=== PATIENT | male | born 1965 | race Caucasian/White ===

== ENCOUNTER → 2020-08-10 11:29 | Outpatient (BNVA) | payer OTHER, SELFPAY | PROVIDERS: PCP Family Medicine; Referring Provider Family Medicine; Visit Provider Nurse Practitioner | DX: Z76.89 Persons encountering health services in other specified circumstances (principal) ==

== ENCOUNTER 2020-10-17 15:17 | Emergency (ER) | payer OTHER, SELFPAY ==
--- NOTE | 2020-10-17 15:58 | PC.NURSE ---
patient came in via ems-action, rt leg/foot pain swollen foot, ems vitals 112/78, hr 84, rr 20, poc 478
== END 2020-10-17 20:04 | disposition left against medical advice (07) ==
PROVIDERS: Emergency Provider Emergency Medicine
DX: M79.604 Pain in right leg (principal)
CPT/HCPCS: 99281

== ENCOUNTER 2020-10-21 18:10 | Inpatient (IN) | payer OTHER, SELFPAY ==
[2020-10-21 18:26] VITALS: BP 115/70; PULSE 107; RESP 18; TEMP 37.5; O2SAT 97; BMI 18.6
[2020-10-21 18:30] LABS: Glucose, Whole Blood 591 mg/dL (60-115)
--- NOTE | 2020-10-21 18:37 | ED.GENADULT ---
HPI - General Adult General Chief complaint: General Medical Stated complaint: MECHANICAL FALL 1 WEEK AGO, INC SWELLING/PAIN Time Seen by Provider: 10/21/20 18:32 Source: patient, EMS and old records reviewed Mode of arrival: EMS Limitations: no limitations and other (not cooperative agitated) History of Present Illness HPI narrative: 55 yo male with HIV CD4 count 53, HTN, DM, hep C, hx of UTI with sepsis comes in hit his foot on curb 1 week ago and c/o increased pain/redness/swelling. prior to my interview he was found asleep on the toilet after injecting IV heroin, no narcan needed, he is quite upset we removed his drug paraphernalia so my history is limited. MD complaint: fall Onset (ago): week(s) (1) Location: lower extremity (right ankle/leg) Radiation: proximal Severity: moderate Quality: aching and constant Pain Consistency: constant Relieving factors: none Exacerbating factors: movement Associated symptoms: other (leg is more swollen and red) Treatments prior to arrival: other (has been using IV heroin for pain - injected in our ED bathroom) Related Data Allergies Allergy/AdvReac Type Severity Reaction Status Date / Time Sulfa (Sulfonamide Allergy Mild RASH Verified 08/10/20 11:30 Antibiotics) [Sulfa (Sulfonamides)] Review of Systems Review of Systems: Constitutional : No Fever, No Chills ENT/Mouth : No Ear Pain, No Hoarseness, No sore throat Eyes: No Eye Pain, No Swelling, No Redness, No Foreign Body Cardiovascular : No Chest Pain, No SOB Respiratory : No Cough, No Dyspnea Gastrointestinal : No Nausea, No Vomiting, No Diarrhea, No abdominal Pain Genitourinary : No Dysuria, No Hematuria Musculoskeletal : positive joint pain, No Myalgias, pos Joint Swelling Skin : No Skin lacerations, pos rash Neuro : No Weakness, No Numbness, No Loss of Consciousness, No Dizziness, No Headache Psych : No Anxiety/Panic, No Depression Heme/Lymph: no easy bruising, no Lymphadenopathy Endocrine : No Polyuria, No Polydipsia All other systems reviewed and are negative PMFSH Past Medical History Attestation statement: The following information was validated with the patient. Source: old records reviewed Medical History Diabetes Drug abuse Hepatitis C HIV (human immunodeficiency virus infection) HTN (hypertension) MSSA bacteremia Surgical History History of repair of laceration Family History Family History (Updated 08/09/20 @ 10:42 by Leticia Recio Emmanuel) Father No problems noted. Mother No problems noted. Social History Social History (Updated 10/21/20 @ 19:31 by Ayleen Cain DO) Alcohol intake: current Alcohol intake frequency: does not drink Smoking Status: Current every day smoker Use of substances other than those prescribed or required for medical reasons: Yes Substance Use Type: Heroin and IV Drugs Advance Directives: No Advance Directives Information Provided: No Physical Exam Vital Signs: Vital Signs: Last Vital Signs Temp 99.3 F 10/21/20 20:17 Pulse 97 10/21/20 20:17 Resp 16 10/21/20 20:17 BP 124/69 10/21/20 20:17 Pulse Ox 97 10/21/20 20:17 Body Mass Index 18.6 Appearance: Alert. Oriented X3. No acute distress. Somewhat agitated but directable, frail, cachectic, temporal wasting Eyes: Pupils oinpoint ENT: Pharynx normal. Neck: Normal inspection. Neck supple. CVS: Normal heart rate and rhythm. Pulses normal. Respiratory: No respiratory distress. Breath sounds normal. Abdomen: Soft and nontender. Skin: Skin warm and dry. RLE erythema on medial aspect from medial malleolus to proximal calf, no abscess, no crepitus, warmt to touch and tender Extremities: RLE 1+ pitting edema, R medial malleolus ttp, swelling onto dorsum of foot but no erythema, erythema along medial aspect does not involve lateral ankle/posterior or dorsum of foot Neuro: Oriented X 3. No motor deficit. No sensory deficit. Course Course Course Narrative: discussed with general surgery likely hematoma with overlying cellulitis nothing acute to do tonight will admit for fluids, IV antibiotics, BS control - he has not taken his HIV medications in 6 months or his insulin as he does not understand how to use the pen Medical Decision Making MDM Narrative Medical decision making narrative: 55 yo male with HIV CD4 53, IV drug abuse, MSSA bacteremia - at this time c/o R leg pain with swelling and redness after hitting it on a curb 1 week ago at this time will need labs, cultures, xray, US to evaluate for DVT, start IV zosyn and vancomycin for RLE cellulitis Lab Data Result diagrams: 10/21/20 19:59 10/21/20 19:59 Labs: Lab Results 10/21/20 10/21/20 10/21/20 Range/Units 18:22 19:59 19:59 WBC 11.6 H (4.8-10.8) X10*3/uL RBC 4.31 L (4.60-5.80) X10*6/uL Hgb 12.5 L (14.0-18.0) g/dl Hct 36.1 L (42-52) % MCV 83.8 (80-98) fL MCH 29.0 (27.0-33.0) pg MCHC 34.6 (31.0-36.0) g/dl RDW 13.2 (11.0-16.0) % Plt Count 147 L (160-400) X10*3/uL MPV 10.4 (9.4-12.4) fL Immature Gran % (Auto) 0.7 H (0.0-0.4) % Neut % (Auto) 90.3 H (45-73) % Lymph % (Auto) 3.6 L (20-40) % Phillips % (Auto) 5.2 (2-11) % Eos % (Auto) 0.0 (0-4) % Baso % (Auto) 0.2 (0-2) % Lymph # (Auto) 0.4 L (1.2-4.9) X10*3/uL Phillips # (Auto) 0.6 (0.1-1.2) X10*3/uL Eos # (Auto) 0.0 (0.0-0.4) X10*3/uL Baso # (Auto) 0.0 (0.0-0.2) X10*3/uL Abs Immat Gran (auto) 0.08 H (0.00-0.03) X10*3/uL Absolute Neuts (auto) 10.5 H (2.0-8.3) X10*3/uL Absolute Nucleated RBC 0.000 (0.0-0.012) X10*3/uL Nucleated RBC % (auto) 0.0 (0.0-0.2) /100WBC Hold Blue Top SEE NOTE VBG pH (7.32-7.43) VBG pCO2 mmhg VBG pO2 mmhg VBG HCO3 mmol/L VBG O2 Saturation % VBG Base Excess mmol/L Sodium (135-145) mmol/L Potassium (3.3-5.1) mmol/l Chloride (96-108) mmol/L Carbon Dioxide (22-29) mmol/L Anion Gap (12-20) BUN (9-16) mg/dL Creatinine (0.5-1.4) mg/dL Estim Creat Clear Calc Estimated GFR POC Glucose 591 H* (60-115) mg/dL Random Glucose (60-115) mg/dL Lactic Acid (0.5-2.0) mmol/L Calcium (8.4-10.2) mg/dL Magnesium (1.6-2.6) mg/dL Total Bilirubin (0.0-1.0) mg/dL Direct Bilirubin (0.0-0.5) mg/dL AST (5-37) U/L ALT (0-40) U/L Alkaline Phosphatase (39-117) U/L Total Protein (6.5-8.0) g/dL Albumin (3.5-5.0) g/dL Urine Color Urine Appearance Urine pH (5.0-8.0) Ur Specific [place] (1.005-1.025) Urine Protein (NEG-TRACE) MG/DL Urine Glucose (UA) (NEG) MG/DL Urine Ketones (NEG) MG/DL Urine Blood (NEG) Urine Nitrite (NEG) Ur Leukocyte Esterase (NEG) Urine RBC (0) /HPF Urine WBC (0-4) /HPF Ur Squamous Epith Cells /LPF Urine Bacteria /LPF Acetone, Qual (Negative) Coronavirus (PCR) (Negative) Influenza Type A (PCR) (Negative) Influenza Type B (PCR) (Negative) RSV RNA Qual (PCR) (Negative) 10/21/20 10/21/20 10/21/20 Range/Units 19:59 19:59 20:00 WBC (4.8-10.8) X10*3/uL RBC (4.60-5.80) X10*6/uL Hgb (14.0-18.0) g/dl Hct (42-52) % MCV (80-98) fL MCH (27.0-33.0) pg MCHC (31.0-36.0) g/dl RDW (11.0-16.0) % Plt Count (160-400) X10*3/uL MPV (9.4-12.4) fL Immature Gran % (Auto) (0.0-0.4) % Neut % (Auto) (45-73) % Lymph % (Auto) (20-40) % Phillips % (Auto) (2-11) % Eos % (Auto) (0-4) % Baso % (Auto) (0-2) % Lymph # (Auto) (1.2-4.9) X10*3/uL Phillips # (Auto) (0.1-1.2) X10*3/uL Eos # (Auto) (0.0-0.4) X10*3/uL Baso # (Auto) (0.0-0.2) X10*3/uL Abs Immat Gran (auto) (0.00-0.03) X10*3/uL Absolute Neuts (auto) (2.0-8.3) X10*3/uL Absolute Nucleated RBC (0.0-0.012) X10*3/uL Nucleated RBC % (auto) (0.0-0.2) /100WBC Hold Blue Top VBG pH (7.32-7.43) VBG pCO2 mmhg VBG pO2 mmhg VBG HCO3 mmol/L VBG O2 Saturation % VBG Base Excess mmol/L Sodium 122 L (135-145) mmol/L Potassium 5.3 H (3.3-5.1) mmol/l Chloride 87 L (96-108) mmol/L Carbon Dioxide 27 (22-29) mmol/L Anion Gap 13 (12-20) BUN 78 H (9-16) mg/dL Creatinine 2.02 H (0.5-1.4) mg/dL Estim Creat Clear Calc 30.8 Estimated GFR 34 POC Glucose (60-115) mg/dL Random Glucose 662 H* (60-115) mg/dL Lactic Acid 1.8 (0.5-2.0) mmol/L Calcium 9.5 (8.4-10.2) mg/dL Magnesium 2.3 (1.6-2.6) mg/dL Total Bilirubin 0.8 (0.0-1.0) mg/dL Direct Bilirubin 0.7 H (0.0-0.5) mg/dL AST 20 (5-37) U/L ALT 17 (0-40) U/L Alkaline Phosphatase 91 (39-117) U/L Total Protein 8.5 H (6.5-8.0) g/dL Albumin 3.1 L (3.5-5.0) g/dL Urine Color YELLOW Urine Appearance CLEAR Urine pH 5.5 (5.0-8.0) Ur Specific [place] 1.025 (1.005-1.025) Urine Protein TRACE (NEG-TRACE) MG/DL Urine Glucose (UA) >=1000 H (NEG) MG/DL Urine Ketones NEG (NEG) MG/DL Urine Blood 1+ H (NEG) Urine Nitrite NEG (NEG) Ur Leukocyte Esterase NEG (NEG) Urine RBC 5-9 H (0) /HPF Urine WBC 0-2 (0-4) /HPF Ur Squamous Epith Cells 1+ /LPF Urine Bacteria 1+ /LPF Acetone, Qual Negative (Negative) Coronavirus (PCR) (Negative) Influenza Type A (PCR) (Negative) Influenza Type B (PCR) (Negative) RSV RNA Qual (PCR) (Negative) 10/21/20 10/21/20 10/21/20 Range/Units 20:02 20:02 21:38 WBC (4.8-10.8) X10*3/uL RBC (4.60-5.80) X10*6/uL Hgb (14.0-18.0) g/dl Hct (42-52) % MCV (80-98) fL MCH (27.0-33.0) pg MCHC (31.0-36.0) g/dl RDW (11.0-16.0) % Plt Count (160-400) X10*3/uL MPV (9.4-12.4) fL Immature Gran % (Auto) (0.0-0.4) % Neut % (Auto) (45-73) % Lymph % (Auto) (20-40) % Phillips % (Auto) (2-11) % Eos % (Auto) (0-4) % Baso % (Auto) (0-2) % Lymph # (Auto) (1.2-4.9) X10*3/uL Phillips # (Auto) (0.1-1.2) X10*3/uL Eos # (Auto) (0.0-0.4) X10*3/uL Baso # (Auto) (0.0-0.2) X10*3/uL Abs Immat Gran (auto) (0.00-0.03) X10*3/uL Absolute Neuts (auto) (2.0-8.3) X10*3/uL Absolute Nucleated RBC (0.0-0.012) X10*3/uL Nucleated RBC % (auto) (0.0-0.2) /100WBC Hold Blue Top VBG pH 7.29 L (7.32-7.43) VBG pCO2 55 mmhg VBG pO2 29 mmhg VBG HCO3 26 mmol/L VBG O2 Saturation 50.4 % VBG Base Excess -1.1 mmol/L Sodium (135-145) mmol/L Potassium (3.3-5.1) mmol/l Chloride (96-108) mmol/L Carbon Dioxide (22-29) mmol/L Anion Gap (12-20) BUN (9-16) mg/dL Creatinine (0.5-1.4) mg/dL Estim Creat Clear Calc Estimated GFR POC Glucose 496 H* (60-115) mg/dL Random Glucose (60-115) mg/dL Lactic Acid (0.5-2.0) mmol/L Calcium (8.4-10.2) mg/dL Magnesium (1.6-2.6) mg/dL Total Bilirubin (0.0-1.0) mg/dL Direct Bilirubin (0.0-0.5) mg/dL AST (5-37) U/L ALT (0-40) U/L Alkaline Phosphatase (39-117) U/L Total Protein (6.5-8.0) g/dL Albumin (3.5-5.0) g/dL Urine Color Urine Appearance Urine pH (5.0-8.0) Ur Specific [place] (1.005-1.025) Urine Protein (NEG-TRACE) MG/DL Urine Glucose (UA) (NEG) MG/DL Urine Ketones (NEG) MG/DL Urine Blood (NEG) Urine Nitrite (NEG) Ur Leukocyte Esterase (NEG) Urine RBC (0) /HPF Urine WBC (0-4) /HPF Ur Squamous Epith Cells /LPF Urine Bacteria /LPF Acetone, Qual (Negative) Coronavirus (PCR) NEGATIVE (Negative) Influenza Type A (PCR) NEGATIVE (Negative) Influenza Type B (PCR) NEGATIVE (Negative) RSV RNA Qual (PCR) NEGATIVE (Negative) ECG Data Attestation: I personally reviewed and interpreted this ECG as follows: Interpretation: Rate: 96 Rhythm: NSR Jolo: normal Normal P waves. Normal ERROL. Normal QRS complex. ST T wave : nonspecific no ROBIN, t waves tall V3 qTC: normal prior studies: no acute ischemia The study has been interpreted contemporaneously by me. . Discharge Plan Discharge Clinical Impression: Cellulitis, Acute renal failure, Acute hyperglycemia, Opiate abuse, continuous, Non-compliance Patient Disposition: Admitted As Inpatient
--- NOTE | 2020-10-21 18:42 | XR_ITS ---
EXAMINATION: XR CHEST CLINICAL INFORMATION: Evaluate for pneumonia COMPARISON: 07/07/2020 TECHNIQUE: Frontal view of the chest was obtained. FINDINGS: Lungs appear hyperexpanded and hyperinflated. Calcified granuloma again seen in the left lateral midlung. No new focal consolidation. No pleural effusion or pneumothorax. Normal pulmonary vascularity. XR/XR chest 1V IMPRESSION: No acute pulmonary disease.
--- NOTE | 2020-10-21 19:01 | XR_ITS ---
EXAMINATION: XR TIBIA AND FIBULA, RIGHT XR ANKLE, RIGHT XR FOOT, RIGHT CLINICAL INFORMATION: Pain following a fall. COMPARISON: None. TECHNIQUE: AP and lateral views of the right tibia and fibula. AP, mortise, and lateral views of the right ankle. AP, oblique, and lateral views of the right foot. FINDINGS: Right Tibia and Fibula: No acute fracture or dislocation. No osseous erosion. No abnormal soft tissue calcification. Right Ankle: No acute fracture or dislocation. The ankle mortise is maintained. No joint space narrowing or marginal osteophytes. No osseous erosion. Right Foot: No acute fracture or dislocation. No joint space narrowing or marginal osteophytes. No osseous erosion. Tiny plantar calcaneal spur. XR/XR foot RT min 3V IMPRESSION: RIGHT TIBIA AND FIBULA: Unremarkable examination. RIGHT ANKLE: Unremarkable examination. RIGHT FOOT: Tiny plantar calcaneal spur. Otherwise unremarkable examination.
--- NOTE | 2020-10-21 19:01 | XR_ITS ---
EXAMINATION: XR TIBIA AND FIBULA, RIGHT XR ANKLE, RIGHT XR FOOT, RIGHT CLINICAL INFORMATION: Pain following a fall. COMPARISON: None. TECHNIQUE: AP and lateral views of the right tibia and fibula. AP, mortise, and lateral views of the right ankle. AP, oblique, and lateral views of the right foot. FINDINGS: Right Tibia and Fibula: No acute fracture or dislocation. No osseous erosion. No abnormal soft tissue calcification. Right Ankle: No acute fracture or dislocation. The ankle mortise is maintained. No joint space narrowing or marginal osteophytes. No osseous erosion. Right Foot: No acute fracture or dislocation. No joint space narrowing or marginal osteophytes. No osseous erosion. Tiny plantar calcaneal spur. XR/XR tibia fibula RT 2V IMPRESSION: RIGHT TIBIA AND FIBULA: Unremarkable examination. RIGHT ANKLE: Unremarkable examination. RIGHT FOOT: Tiny plantar calcaneal spur. Otherwise unremarkable examination.
--- NOTE | 2020-10-21 19:01 | US_ITS ---
EXAMINATION: US VENOUS ULTRASOUND WITH DOPPLER LOWER EXTREMITY, RIGHT CLINICAL INFORMATION: Pain, swelling COMPARISON: None TECHNIQUE: Ultrasound of the deep veins is performed from the hip to the calf with compression sonography and color and pulse Doppler assessment. Spectral analysis with color-flow imaging is performed. FINDINGS: There is normal venous compression and respiratory variation and augmented flow. The visualized common femoral vein, superficial femoral vein, profunda femoral vein, popliteal vein, and the trifurcation region shows no evidence of deep venous thrombosis. There is no significant popliteal fossa cyst. In the soft tissues of the calf there is an elongated (at least) 4.4 x 1.1 x 2.5 cm fluid collection. There are some low level internal echoes. If the patient's symptoms persist, followup ultrasound in 5 days 7 days might be of value to exclude proximal propagation from a non-visualized calf vein. US/US venous duplex LE RT IMPRESSION: No DVT demonstrated in the right lower extremity. Elongated 4.4 x 1.1 x 2.5 cm fluid collection seen in the calf, new from the prior study 07/10/2020. There are a few internal low-level echoes. Differential considerations would include an abscess or hematoma. The location is atypical for bursitis or joint effusion. A postoperative fluid collection such as a seroma could be considered if there is been interval surgery.
--- NOTE | 2020-10-21 19:01 | XR_ITS ---
EXAMINATION: XR TIBIA AND FIBULA, RIGHT XR ANKLE, RIGHT XR FOOT, RIGHT CLINICAL INFORMATION: Pain following a fall. COMPARISON: None. TECHNIQUE: AP and lateral views of the right tibia and fibula. AP, mortise, and lateral views of the right ankle. AP, oblique, and lateral views of the right foot. FINDINGS: Right Tibia and Fibula: No acute fracture or dislocation. No osseous erosion. No abnormal soft tissue calcification. Right Ankle: No acute fracture or dislocation. The ankle mortise is maintained. No joint space narrowing or marginal osteophytes. No osseous erosion. Right Foot: No acute fracture or dislocation. No joint space narrowing or marginal osteophytes. No osseous erosion. Tiny plantar calcaneal spur. XR/XR ankle RT min 3V IMPRESSION: RIGHT TIBIA AND FIBULA: Unremarkable examination. RIGHT ANKLE: Unremarkable examination. RIGHT FOOT: Tiny plantar calcaneal spur. Otherwise unremarkable examination.
--- NOTE | 2020-10-21 19:08 | PC.NURSE ---
pt was found on toilet with syringe and a pack at his feet. Pt's head was down but pt awake and breathing. pt sat up and was placed in stretcher and moved to room #17 with MD at bedside. Pt chg into gown with security at bedside. MD conversing with pt with animal control licensing worker at bedside for eval. VS obtained. Pt awaiting x-ray and labs. Will continue to monitor pt.
--- NOTE | 2020-10-21 19:30 | PC.NURSE ---
IV PLACED TO LFA, LABS DRAWN TO LAB. PT GIVEN REGULAR INSULIN 10UNITS WITH POC 496. PT ON MONITOR WITH HR OF 96. PT STATES I DONT FEEL GOOD . PT C/O PAIN TO TONGUE WHICH HAS VARIOUS AREA OF PATCHY SKIN ON SIDES OF TONGUE AND PT C/O PAIN TO RIGHT FOOT/ANKLE AREA. +EDEMA TO RIGHT FOOT/ANKLE AREA. X-RAY IN ROOM FOR EVAL.
[2020-10-21] MEDS: 0.9 % Sodium Chloride 1,000 ML 999 ML IVCONT (20:00)
--- NOTE | 2020-10-21 20:00 | PC.NURSE ---
U/S IN ROOM FOR EVAL.
[2020-10-21 20:12] LABS: Basophils Percent Auto 0.2 % (0-2); Hematocrit 36.1 % (42-52); Hemoglobin 12.5 g/dl (14.0-18.0); Imm Gran Abs Auto 0.08 X10*3/uL (0.00-0.03); Imm Gran Pct Auto 0.7 % (0.0-0.4); Lymphocytes Absolute Auto 0.4 X10*3/uL (1.2-4.9); Lymphocytes Percent Auto 3.6 % (20-40); Mean Corpuscular HGB Conc 34.6 g/dl (31.0-36.0); Mean Corpuscular Volume 83.8 fL (80-98); Mean Platelet Volume 10.4 fL (9.4-12.4); Monocytes Absolute Auto 0.6 X10*3/uL (0.1-1.2); Monocytes Percent Auto 5.2 % (2-11); Neutrophils Absolute Auto 10.5 X10*3/uL (2.0-8.3); Neutrophils Percent Auto 90.3 % (45-73); Platelet Count 147 X10*3/uL (160-400); Red Blood Count 4.31 X10*6/uL (4.60-5.80); Red Cell Distribution Width 13.2 % (11.0-16.0); SCAN SMEAR FLAG 1; White Blood Count 11.6 X10*3/uL (4.8-10.8)
[2020-10-21 20:14] LABS: MANUAL DIFF FLAG NO
[2020-10-21] MEDS: Insulin Regular, Human 100 UNIT/ML 3 ML VIAL 10 UNIT IVPUSH (20:15)
[2020-10-21 20:17] VITALS: BP 124/69; PULSE 97; RESP 16; TEMP 37.4; O2SAT 97
[2020-10-21 20:17] LABS: Base Excess VBG -1.1 mmol/L; HCO3 VBG 26 mmol/L; Oxygen Saturation VBG 50.4 %; PCO2 VBG 55 mmhg; PO2 VBG 29 mmhg; pH VBG 7.29 (7.32-7.43)
[2020-10-21 20:17] LABS: Glucose Urine UA >=1000 MG/DL (NEG); Leukocyte Esterase Urine NEG (NEG); Nitrite Urine NEG (NEG); PH 5.5 (5.0-8.0); Specific Gravity - Urine 1.025 (1.005-1.025); Urine Blood 1+ (NEG); Urine Ketones NEG (NEG); Urine Protein TRACE MG/DL (NEG-TRACE)
[2020-10-21 20:18] LABS: Appearance Urine CLEAR; Color Urine YELLOW
[2020-10-21 20:18] LABS: Blood Gas Serial # 5414
[2020-10-21 20:29] LABS: Bacteria Urine 1+ /LPF; Squamous Epithelial Cell Urine 1+ /LPF; WBC Urine 0-2 /HPF (0-4)
[2020-10-21] MEDS: Piperacillin Sodium/Tazobactam 3.375 GM in 0.9 % Sodium Chloride 50 ML IV (20:30)
[2020-10-21 20:34] LABS: Lactic Acid 1.8 mmol/L (0.5-2.0)
[2020-10-21 20:43] LABS: Alanine Aminotransferase 17 U/L (0-40); Albumin Level 3.1 g/dL (3.5-5.0); Alkaline Phosphatase 91 U/L (39-117); Anion Gap 13 (12-20); Aspartate Amino Transferase 20 U/L (5-37); Bilirubin Direct 0.7 mg/dL (0.0-0.5); Bilirubin Total 0.8 mg/dL (0.0-1.0); Blood Urea Nitrogen 78 mg/dL (9-16); Calcium 9.5 mg/dL (8.4-10.2); Carbon Dioxide 27 mmol/L (22-29); Chloride 87 mmol/L (96-108); Creatinine Clr Calc Pharmacy 30.8; Estimated Glomerular Filt Rate 34; Glucose Random 662 mg/dL (60-115); Magnesium 2.3 mg/dL (1.6-2.6); Potassium 5.3 mmol/l (3.3-5.1); Sodium 122 mmol/L (135-145); Total Protein 8.5 g/dL (6.5-8.0)
[2020-10-21] MEDS: vancomycin HCL 750 MG in 0.9 % Sodium Chloride 250 ML 265 MG IV (20:45)
[2020-10-21 21:02] LABS: Influenza A PCR NEGATIVE (Negative); Influenza B PCR NEGATIVE (Negative); Resp Syncy Virus RNA Qual PCR NEGATIVE (Negative); SARS COV2 PCR INHOUSE NEGATIVE (Negative)
[2020-10-21] MEDS: 0.9 % Sodium Chloride 500 ML IV (21:13)
--- NOTE | 2020-10-21 21:35 | ECG_ITS ---
Test Reason : FOOT PAIN Blood Pressure : / mmHG Vent. Rate : 096 BPM Atrial Rate : 096 BPM P-R Int : 118 ms QRS Dur : 082 ms QT Int : 320 ms P-R-T Axes : 074 074 059 degrees QTc Int : 404 ms Normal sinus rhythm Normal ECG When compared with ECG of 07-JUL-2020 22:03, No significant change was found Referred By: Ayleen Cain Electronically Signed By:DONY OCHOA
[2020-10-21 21:46] LABS: Acetone, serum QL Negative (Negative)
[2020-10-21 21:46] LABS: Glucose, Whole Blood 496 mg/dL (60-115)
[2020-10-21] MEDS: Insulin Regular, Human 100 UNIT/ML 3 ML VIAL IVPUSH (21:50)
[2020-10-21 22:00] VITALS: BP 114/68; PULSE 93; RESP 16; O2SAT 99
--- NOTE | 2020-10-21 22:03 | PC.NURSE ---
HOSPITALIST IN ROOM FOR EVAL ALONG WITH INTERPRETOR.
[2020-10-21 22:39] LABS: Glucose, Whole Blood 415 mg/dL (60-115)
[2020-10-21] MEDS: Insulin Lispro 100 UNIT/ML 3 ML VIAL 10 UNIT SUBCUT (23:00)
--- NOTE | 2020-10-21 23:56 | PC.NURSE ---
floor unable to take report.
[2020-10-21 23:58] LABS: Glucose, Whole Blood 359 mg/dL (60-115)
--- NOTE | 2020-10-22 00:28 | PC.NURSE ---
SPOKE WITH DR CAMARGO. PATIENT IS NOT A CRISIS CONSULT. PATIENT IS A CARE TEAM CONSULT.
--- NOTE | 2020-10-22 00:34 | PC.NURSE ---
report to kanika Gotti. [facility].
[2020-10-22 00:54] VITALS: BP 109/61; PULSE 94; RESP 16; TEMP 37.2
[2020-10-22] MEDS: Insulin Glargine,Hum.rec.anlog 100 UNIT/ML 10 ML VIAL 18 UNIT SUBCUT ×3 (01:13→21:24)
[2020-10-22 01:15] LABS: Glucose, Whole Blood 322 mg/dL (60-115)
[2020-10-22] MEDS: 0.9 % Sodium Chloride Flush 3 ML SYRINGE IVFLUSH ×3 (01:31→21:26)
[2020-10-22] MEDS: 0.9 % Sodium Chloride 1,000 ML 100 ML IVCONT ×2 (01:31→12:02)
--- NOTE | 2020-10-22 05:11 | P.HPHOSP_ITS ---
History of Present Illness Date of Service: 10/21/20 Chief Complaint: thrush, right lower extremity swelling This is a 54-year-old male with past medical history of hep B, C, HIV aids, diabetes, hypertension, MSSA bacteremia presents to the hospital with complaints right lower extremity swelling and pain as well as thrush in time. Patient reports that about 3 days ago he bumped his right lower extremity on a sidewalk, and progressively started getting red, painful, and swollen. He also is complaining of thrush when his time. He reports that he has not been able to eat much except 4th fluids although has no difficulty swallowing does low appetite for anything else. He has been homeless for 6 months and has not been able to keep up with any of his medications including his HIV/aids meds and his insulin. He is also interested in quitting IV drug use and wants help in detoxing. He otherwise denies any headache, change in vision, no chest pain, no shortness of breath, no abdominal pain nausea or vomiting, no urinary symptoms and no weakness numbness or tingling. On arrival to the ED to the ED hemodynamically stable with heart rate of 107, otherwise no significant abnormal vitals Labs are significant for WBC count of 11.6, hemoglobin a of 12.5, hematocrit 36.1, 35 , potassium of 5.3, normal anion gap, bicarb of 27, BUN of 78, creatinine of 2.0 with a baseline around 0.8, random glucose of 662, lactic acid of 1.8, albumin 3.1. UA negative. Past medical history: Hepatitis B and C, HIV aids, diabetes mellitus, hypertension, MSSA bacteremia Past surgical history: Facial reconstruction surgery Family history: Denies Social history: Currently homeless, smokes cigarettes but quit yesterday, smokes less than a pack a day, uses heroin daily and is interested in quitting, last use was today in the ED, occasional alcohol user Review of Systems Review of Systems: Yes all other systems are reviewed and are negative [facility] Medical History Diabetes Drug abuse Hepatitis C HIV (human immunodeficiency virus infection) HTN (hypertension) MSSA bacteremia Family History (Updated 08/09/20 @ 10:42 by Leticia Recio Emmanuel) Father No problems noted. Mother No problems noted. Surgical History History of repair of laceration Social History (Updated 10/21/20 @ 19:31 by Ayleen Cain DO) Household Members: None Housing: Apartment Do you presently have visiting nurse or other home services: No Alcohol intake: current Alcohol intake frequency: does not drink Smoking Status: Current every day smoker Tobacco Type: Cigarette Packs Per Day: 1 Cigarettes Per Day: 20.0 Smoked in Last 30 Days: Yes Patient Interested in Nicotine Replacement: No Second Hand Smoke Exposure: Yes Use of substances other than those prescribed or required for medical reasons: Refusing to respond Substance Use Type: Heroin Last Used Substance: Hours (ago) Last Used Substance Other:: ed report stated found in br with used syringes and heroin packets Currently Displaying Signs/Symptoms of Drug Intoxication Withdrawal: No Any prior treatment program specific to substance use: No Have you been hit, kicked, punched, or otherwise hurt by someone within the past year? If so, by whom?: No Do you feel safe in your current relationship?: No Current Relationship Is there a partner from a previous relationship who is making you feel unsafe now?: No Are you made to feel afraid or neglected: No Advance Directives: No Advance Directives Information Provided: No Do you have thoughts of harming others: None Recently lost weight without trying: Unsure Meds Allergies Allergy/AdvReac Type Severity Reaction Status Date / Time Sulfa (Sulfonamide Allergy Mild RASH Verified 08/10/20 11:30 Antibiotics) [Sulfa (Sulfonamides)] Home Medications Medication Instructions Recorded Confirmed Type abacavir 2 tab PO BEDTIME 10/21/20 10/21/20 History atovaquone 750 mg PO DAILY 10/21/20 10/21/20 History omlbweqpd-mevhiaix-lvscvgi ala 1 tab PO DAILY 10/21/20 10/21/20 History [Biktarvy] buprenorphine-naloxone [Suboxone] 1 strip SUBLINGUAL BID 10/21/20 10/21/20 History fluticasone propionate [Flovent 1 puff PO BID 10/21/20 10/21/20 History HFA] insulin aspart U-100 [Novolog 100 unit SUBCUT TID 10/21/20 10/21/20 History Flexpen U-100 Insulin] insulin glargine [Lantus Solostar 18 unit SUBCUT BID 10/21/20 10/21/20 History U-100 Insulin] metformin 1 tab PO BID 10/21/20 10/21/20 History Physical Exam Vital Signs and Narrative: Vital Signs: Last Vital Signs Temp 98.9 F 10/22/20 00:54 Pulse 94 10/22/20 00:54 Resp 16 10/22/20 00:54 BP 109/61 10/22/20 00:54 Pulse Ox 99 10/21/20 22:00 Body Mass Index 18.6 Const: Other: Severely malnourished, cachectic General: cooperative and no acute distress Orientation/consciousness: patient oriented x3 HENMT: Other: oral thrush on tongue Eyes: General: appearance normal, both eyes and all related structures Resp: Effort & Inspection: normal respiratory effort and able to speak in complete sentences Auscultation: clear to auscultation bilaterally Cardio: Rate: regular rate Rhythm: regular rhythm GI: Palpation (GI): Soft to palpation Auscultation: normal bowel sounds Skin: General skin exam: no rashes or lesions noted Neuro: General: patient oriented x3 Cognition (Neuro): normal cognition Extrem: Other: Right lower extremity edema, erythema, and tenderness around the ankle Results Labs CBC and Chem 7: 10/21/20 19:59 10/21/20 19:59 Labs: Laboratory Results - last 24 hr 10/21/20 10/21/20 10/21/20 18:22 19:59 19:59 MCV 83.8 MCH 29.0 MCHC 34.6 RDW 13.2 Plt Count 147 L MPV 10.4 Immature Gran % (Auto) 0.7 H Neut % (Auto) 90.3 H Lymph % (Auto) 3.6 L [place] % (Auto) 5.2 Eos % (Auto) 0.0 Baso % (Auto) 0.2 Lymph # (Auto) 0.4 L [place] # (Auto) 0.6 Eos # (Auto) 0.0 Baso # (Auto) 0.0 Abs Immat Gran (auto) 0.08 H Absolute Neuts (auto) 10.5 H Absolute Nucleated RBC 0.000 Nucleated RBC % (auto) 0.0 Hold Blue Top SEE NOTE VBG pH VBG pCO2 VBG pO2 VBG HCO3 VBG O2 Saturation VBG Base Excess Anion Gap Estim Creat Clear Calc Estimated GFR POC Glucose 591 H* Random Glucose Lactic Acid Calcium Magnesium Total Bilirubin Direct Bilirubin AST ALT Alkaline Phosphatase Total Protein Albumin Urine Color Urine Appearance Urine pH Ur Specific [place] Urine Protein Urine Glucose (UA) Urine Ketones Urine Blood Urine Nitrite Ur Leukocyte Esterase Urine RBC Urine WBC Ur Squamous Epith Cells Urine Bacteria Acetone, Qual Coronavirus (PCR) Influenza Type A (PCR) Influenza Type B (PCR) RSV RNA Qual (PCR) 10/21/20 10/21/20 10/21/20 19:59 19:59 20:00 MCV MCH MCHC RDW Plt Count MPV Immature Gran % (Auto) Neut % (Auto) Lymph % (Auto) [place] % (Auto) Eos % (Auto) Baso % (Auto) Lymph # (Auto) [place] # (Auto) Eos # (Auto) Baso # (Auto) Abs Immat Gran (auto) Absolute Neuts (auto) Absolute Nucleated RBC Nucleated RBC % (auto) Hold Blue Top VBG pH VBG pCO2 VBG pO2 VBG HCO3 VBG O2 Saturation VBG Base Excess Anion Gap 13 Estim Creat Clear Calc 30.8 Estimated GFR 34 POC Glucose Random Glucose 662 H* Lactic Acid 1.8 Calcium 9.5 Magnesium 2.3 Total Bilirubin 0.8 Direct Bilirubin 0.7 H AST 20 ALT 17 Alkaline Phosphatase 91 Total Protein 8.5 H Albumin 3.1 L Urine Color YELLOW Urine Appearance CLEAR Urine pH 5.5 Ur Specific [place] 1.025 Urine Protein TRACE Urine Glucose (UA) >=1000 H Urine Ketones NEG Urine Blood 1+ H Urine Nitrite NEG Ur Leukocyte Esterase NEG Urine RBC 5-9 H Urine WBC 0-2 Ur Squamous Epith Cells 1+ Urine Bacteria 1+ Acetone, Qual Negative Coronavirus (PCR) Influenza Type A (PCR) Influenza Type B (PCR) RSV RNA Qual (PCR) 10/21/20 10/21/20 10/21/20 20:02 20:02 21:38 MCV MCH MCHC RDW Plt Count MPV Immature Gran % (Auto) Neut % (Auto) Lymph % (Auto) [place] % (Auto) Eos % (Auto) Baso % (Auto) Lymph # (Auto) [place] # (Auto) Eos # (Auto) Baso # (Auto) Abs Immat Gran (auto) Absolute Neuts (auto) Absolute Nucleated RBC Nucleated RBC % (auto) Hold Blue Top VBG pH 7.29 L VBG pCO2 55 VBG pO2 29 VBG HCO3 26 VBG O2 Saturation 50.4 VBG Base Excess -1.1 Anion Gap Estim Creat Clear Calc Estimated GFR POC Glucose 496 H* Random Glucose Lactic Acid Calcium Magnesium Total Bilirubin Direct Bilirubin AST ALT Alkaline Phosphatase Total Protein Albumin Urine Color Urine Appearance Urine pH Ur Specific [place] Urine Protein Urine Glucose (UA) Urine Ketones Urine Blood Urine Nitrite Ur Leukocyte Esterase Urine RBC Urine WBC Ur Squamous Epith Cells Urine Bacteria Acetone, Qual Coronavirus (PCR) NEGATIVE Influenza Type A (PCR) NEGATIVE Influenza Type B (PCR) NEGATIVE RSV RNA Qual (PCR) NEGATIVE 10/21/20 10/21/20 10/22/20 22:33 23:50 01:08 MCV MCH MCHC RDW Plt Count MPV Immature Gran % (Auto) Neut % (Auto) Lymph % (Auto) [place] % (Auto) Eos % (Auto) Baso % (Auto) Lymph # (Auto) [place] # (Auto) Eos # (Auto) Baso # (Auto) Abs Immat Gran (auto) Absolute Neuts (auto) Absolute Nucleated RBC Nucleated RBC % (auto) Hold Blue Top VBG pH VBG pCO2 VBG pO2 VBG HCO3 VBG O2 Saturation VBG Base Excess Anion Gap Estim Creat Clear Calc Estimated GFR POC Glucose 415 H* 359 H* 322 H Random Glucose Lactic Acid Calcium Magnesium Total Bilirubin Direct Bilirubin AST ALT Alkaline Phosphatase Total Protein Albumin Urine Color Urine Appearance Urine pH Ur Specific [place] Urine Protein Urine Glucose (UA) Urine Ketones Urine Blood Urine Nitrite Ur Leukocyte Esterase Urine RBC Urine WBC Ur Squamous Epith Cells Urine Bacteria Acetone, Qual Coronavirus (PCR) Influenza Type A (PCR) Influenza Type B (PCR) RSV RNA Qual (PCR) Imaging Radiologist's Impressions: Impressions Chest X-Ray 10/21/20 18:42 IMPRESSION: No acute pulmonary disease. Ankle X-Ray 10/21/20 19:01 IMPRESSION: RIGHT TIBIA AND FIBULA: Unremarkable examination. RIGHT ANKLE: Unremarkable examination. RIGHT FOOT: Tiny plantar calcaneal spur. Otherwise unremarkable examination. Foot X-Ray 10/21/20 19:01 IMPRESSION: RIGHT TIBIA AND FIBULA: Unremarkable examination. RIGHT ANKLE: Unremarkable examination. RIGHT FOOT: Tiny plantar calcaneal spur. Otherwise unremarkable examination. Tibia/Fibula X-Ray 10/21/20 19:01 IMPRESSION: RIGHT TIBIA AND FIBULA: Unremarkable examination. RIGHT ANKLE: Unremarkable examination. RIGHT FOOT: Tiny plantar calcaneal spur. Otherwise unremarkable examination. Venous Duplex 10/21/20 19:01 IMPRESSION: No DVT demonstrated in the right lower extremity. Elongated 4.4 x 1.1 x 2.5 cm fluid collection seen in the calf, new from the prior study 07/10/2020. There are a few internal low-level echoes. Differential considerations would include an abscess or hematoma. The location is atypical for bursitis or joint effusion. A postoperative fluid collection such as a seroma could be considered if there is been interval surgery. Assessment and Plan (1) Sepsis: Status: Acute (2) Cellulitis: Qualifiers: Laterality: right Site of cellulitis: extremity Site of cellulitis of extremity: lower extremity Qualified Code(s): L03.115 - Cellulitis of right lower limb Status: Acute (3) Acute renal failure: Qualifiers: Acute renal failure type: unspecified Qualified Code(s): N17.9 - Acute kidney failure, unspecified Status: Acute (4) Thrush, oral: Status: Acute (5) Acute hyperglycemia: Status: Acute (6) Opiate abuse, continuous: Status: Acute (7) Non-compliance: Status: Acute (8) HTN (hypertension): Status: Inactive (9) HIV (human immunodeficiency virus infection): Status: Inactive This is a 55-year-old male with past medical history of HIV/aids who presents to the hospital with of by lower extremity swelling/erythema as well as thrush in his mouth # sepsis - most likely secondary to lower extremity cellulitis - has tachycardia as well as leukocytosis Plan: - start on IV antibiotics - IV fluids - follow cultures # lower extremity cellulitis - erythema, tenderness, edema - has leukocytosis, and tachycardia - due to injury to lower extremity Plan: - IV vancomycin, - surgical team was consulted and believe that there is a hematoma with no plan for surgical intervention at this time - follow cultures # oral thrush - in the setting of AIDS - start him on fluconazole - patient reports prior history - has CD4 count less than 100 - ID consulted # HIV/AIDS - patient has been homeless and has not been able to keep up with medications - will resume his atovaquone, Biktarvy, and abacavir - infectious disease consulted # hyperglycemia - uncontrolled diabetes - has not been compliant with his insulin patient reports has difficulty using pending prefers vial - resume home insulin, on low-dose sliding scale insulin, diabetic diet - POC q.i.d. a.c. # IV drug abuse - interested in continuing his Suboxone in quitting heroin and would like to be admitted to detox program - will consult care team DVT prophylaxis: Heparin
[2020-10-22 05:23] LABS: Basophils Percent Auto 0.2 % (0-2); Eosinophils Percent Auto 0.1 % (0-4); Hematocrit 31.2 % (42-52); Imm Gran Abs Auto 0.15 X10*3/uL (0.00-0.03); Imm Gran Pct Auto 1.4 % (0.0-0.4); Lymphocytes Absolute Auto 0.9 X10*3/uL (1.2-4.9); Lymphocytes Percent Auto 8.5 % (20-40); MANUAL DIFF FLAG SCAN; Mean Corpuscular HGB Conc 35.3 g/dl (31.0-36.0); Mean Corpuscular Hemoglobin 28.9 pg (27.0-33.0); Mean Corpuscular Volume 82.1 fL (80-98); Monocytes Absolute Auto 0.9 X10*3/uL (0.1-1.2); Monocytes Percent Auto 7.8 % (2-11); PLT CLUMP 1; Red Cell Distribution Width 13.1 % (11.0-16.0); SCAN SMEAR FLAG 1
[2020-10-22 05:56] LABS: White Blood Count 10.9 X10*3/uL (4.8-10.8)
[2020-10-22 05:58] LABS: SLIDE REVIEW VERIFIED
[2020-10-22 06:12] LABS: Anion Gap 11 (12-20); Blood Urea Nitrogen 52 mg/dL (9-16); Calcium 8.8 mg/dL (8.4-10.2); Carbon Dioxide 24 mmol/L (22-29); Chloride 100 mmol/L (96-108); Creatinine Clr Calc Pharmacy 59.2; Estimated Glomerular Filt Rate > 60; Glucose Random 242 mg/dL (60-115); Potassium 4.2 mmol/l (3.3-5.1); Sodium 131 mmol/L (135-145)
[2020-10-22 07:30] VITALS: BP 127/70; PULSE 80; RESP 15; TEMP 36.4; O2SAT 99
[2020-10-22 07:56] LABS: Glucose, Whole Blood 262 mg/dL (60-115)
[2020-10-22] MEDS: Atovaquone 750 MG/5 ML ORAL.SUSP PO (08:51)
[2020-10-22] MEDS: Insulin Lispro 100 UNIT/ML 3 ML VIAL SUBCUT ×4 (08:52→21:25)
--- NOTE | 2020-10-22 10:05 | HO.PM.IMPN ---
Subjective Subjective Date of Service: 10/22/20 Interval History: Seen in f/u Cellulitis of right leg in setting of HIV disease and non compliant with meds Review of Systems -no fever -pain in right leg Physical Exam Vital Signs: Vital Signs: Last Vital Signs Temp 97.5 F 10/22/20 07:30 Pulse 80 10/22/20 07:30 Resp 15 10/22/20 07:30 BP 127/70 10/22/20 07:30 Pulse Ox 99 10/22/20 07:30 Body Mass Index 18.6 Const: General: cooperative Orientation/consciousness: patient oriented x3 HENMT: Other: oral thrush on tongue Resp: Effort & Inspection: normal respiratory effort and able to speak in complete sentences Auscultation: clear to auscultation bilaterally Cardio: Rate: regular rate Rhythm: regular rhythm GI: Palpation (GI): Soft to palpation Auscultation: normal bowel sounds Skin: General skin exam: no rashes or lesions noted Neuro: General: patient oriented x3 Extrem: Other: Right lower extremity edema, erythema, and tenderness around the ankle Objective Data Current Medications Generic Name Dose Route Start Last Admin Trade Name Freq PRN Reason Stop Dose Admin Abacavir Sulfate 600 mg 10/22/20 21:00 Abacavir Sulfate 300 Mg Tablet PO BEDTIME TOMY Acetaminophen 650 mg 10/22/20 00:50 Acetaminophen 325 Mg Tablet PO Q6H PRN Pain, Mild (Pain Scale 1-3) Atovaquone 750 mg 10/22/20 09:00 10/22/20 08:51 Atovaquone 750 Mg/5 Ml Oral.Susp PO 750 mg DAILY TOMY Administration Bictegravir/Emtricitabine/Tenofovir 1 tab 10/22/20 09:00 10/22/20 08:51 Bictegrav/Emtricit/Tenofov Ala 1 Tab Tablet PO 1 tab DAILY TOMY Administration Buprenorphine/Naloxone 1 film 10/22/20 10:00 Buprenorphine/Naloxone 8/2 Mg Film SUBLINGUAL BID TOMY Docusate Sodium 100 mg 10/22/20 00:50 Docusate Sodium 100 Mg Capsule PO DAILY PRN Constipation Fluconazole 400 mg 10/21/20 22:50 10/22/20 01:11 Fluconazole 100 Mg Tablet PO Not Given DAILY TOMY Fluticasone Propionate 1 puff 10/22/20 09:00 Fluticasone Propionate 100 Mcg Blst.W.Dev INHALE BID TOMY Sodium Chloride 1,000 mls @ 100 mls/hr 10/22/20 00:50 10/22/20 01:31 Ns IVCONT 100 mls/hr .Q10H TOMY Administration Vancomycin HCl 1,000 mg/ 270 mls @ 270 mls/hr 10/22/20 21:00 Sodium Chloride IV Q24H TOMY Sodium Chloride 1,000 mls @ 100 mls/hr 10/22/20 05:30 10/22/20 05:46 Ns IVCONT Not Given .Q10H TOMY Insulin Glargine 18 unit 10/21/20 23:30 10/22/20 08:52 Insulin Glargine,Hum.Rec.Anlog 100 Unit/Ml 10 Ml Vial SUBCUT 18 unit BID TOMY Administration Insulin Human Lispro 0 unit 10/22/20 07:30 10/22/20 08:52 Insulin Lispro 100 Unit/Ml 3 Ml Vial SUBCUT 6 unit QIDACHS TOMY Administration Protocol Ondansetron HCl 4 mg 10/22/20 00:50 Ondansetron Hcl 4 Mg/2 Ml Vial IVPUSH Q8H PRN Nausea and Vomiting Pharmacy Consult 1 each 10/21/20 19:27 Consult Rx Vancomycin Dosing MISCELLANE DAILY PRN Consult order Pharmacy Consult 1 each 10/22/20 00:50 Consult Rx Vancomycin Dosing MISCELLANE DAILY PRN Consult order Sodium Chloride 3 ml 10/22/20 00:50 10/22/20 08:53 0.9 % Sodium Chloride Flush 3 Ml Syringe IVFLUSH 3 ml QSHIFT TOMY Administration Labs CBC & Chem 7: 10/22/20 04:33 10/22/20 04:33 Assessment and Plan (1) Sepsis: Status: Acute (2) Cellulitis: Status: Acute (3) Acute renal failure: Status: Acute (4) Thrush, oral: Status: Acute (5) Acute hyperglycemia: Status: Acute (6) Opiate abuse, continuous: Status: Acute (7) Non-compliance: Status: Acute (8) HTN (hypertension): Status: Inactive (9) HIV (human immunodeficiency virus infection): Status: Inactive Assessment and Plan: 55-year-old male with past medical history of HIV/aids who presents to the hospital with right lower extremity swelling/erythema as well as thrush in his mouth # sepsis poa d/t Cellulitis of right right leg--improving - Continue IV vancomycin D2 -ID consult # oral thrush - in the setting of AIDS - start him on fluconazole - patient reports prior history - has CD4 count less than 100 - ID consulted # HIV/AIDS - patient has been homeless and has not been able to keep up with medications - will resume his atovaquone, Biktarvy, and abacavir - infectious disease consulted # hyperglycemia- - uncontrolled diabetes -continue Lantus 18 and SSI, DC humalog 100 tid likely error # IV drug abuse - interested in continuing his Suboxone in quitting heroin and would like to be admitted to detox program - will consult additcation team He has the unfortunate habit of leaving AMA all the time and would not be suprise if he does it again DVT prophylaxis: Heparin
[2020-10-22] MEDS: Buprenorphine/Naloxone 8/2 mg FILM 1 FILM SUBLINGUAL (10:26)
[2020-10-22 11:18] VITALS: BP 128/71; PULSE 77; RESP 15; TEMP 36.7; O2SAT 100
[2020-10-22 11:41] LABS: Glucose, Whole Blood 276 mg/dL (60-115)
[2020-10-22] MEDS: Fluconazole 100 MG TABLET 400 MG PO (12:02)
--- NOTE | 2020-10-22 13:46 | MHC.CM.PN ---
NURSE CIRCUS ARTIST NOTE ELECTRONIC MEDICAL RECORD REVIEWED (PER DOCUMENTATION HX;ASTHMA, HEPATITIS B,C IV HEROIN ABUSE INSULIN DEPENDENT DIABETES TOBACCO USE , MOOD DISORDER INFORMATION GATHERED FROM THIS ER AND HISTORY PHYSICAL DOCUMENTATION AND ;LAST ADMISSION PATIENT REUSES TO ANSWER ANY QUESTION OF MYSELF OR OTHER STAFF MEMBERS, PER FACE SHEET PATIENT LIVES IN A APARTMENT, HE HAS NO PCP LISTED HE IS UNEMPLOYED AND HAS [facility] INSURANCE (UNABLE TO REACH YARDAGE CALLER OR INSURANCE LIAISON IT IS A WEEKEND) PATIENT LAST HOSPITALIZED HERE AT [facility] 2019 AND WAS DISCHARGED HOME NO SERVICES DISCHARGE PLAN CONTINUE TO TRY TO HAVE HIM PARTICIPATE IN CONVERSATION. PHYSICIAN REFERRED PATIENT TO THE CARES TEAM FOR ASSESSMENT FOR IV DRUG ABUSE, D/C WITH THEIR RECOMMENDATIONS YARDAGE CALLER TO CONFIRM WHETHER PATIENT STILL HAS HOUSING OR IS HOMELESS PATIENT APPEARS NOT TO HAVE A HEALTH CARE PROXY (WITH LAST ADMISSION HE DECLINED)P PCP WILL CHECK WITH [facility] T SEE IF HE HAS A PCP AND IF HE HAS ANY OTHER COMMUNITY SERVICES OR SPECIALIST INVOLVEMENT FOR MENTAL HEALTH COUNSELING OR DRUG ABUSE
--- NOTE | 2020-10-22 14:51 | P.CNID_ITS ---
History of Present Illness Data of Consult Service Date: 10/22/20 Primary Care Provider: Unknown Physician HPI Reason for consult: bacteremia,HIV He presents to ER with right foot pain and swelling for a day He was allegedly using IV heroin in bathroom in ER He has used IV heroin regularly He has not contacted HIV provider and is not on medication Blood cultures shows gram positive cocci and prior CD4 count is 52 Review of Systems Review of Systems: Yes all other systems are reviewed and are negative PMFSH Past Medical History Medical History (Updated 10/22/20 @ 14:57 by Karina Max MD) AIDS Bacteremia Diabetes Drug abuse Hepatitis C HIV (human immunodeficiency virus infection) HTN (hypertension) MSSA bacteremia Family History Family History Father No problems noted. Mother No problems noted. Surgical History Surgical History History of repair of laceration Social History Social History Household Members: None Housing: Apartment Do you presently have visiting nurse or other home services: No Alcohol intake: current Alcohol intake frequency: does not drink Smoking Status: Current every day smoker Tobacco Type: Cigarette Packs Per Day: 1 Cigarettes Per Day: 20.0 Smoked in Last 30 Days: Yes Patient Interested in Nicotine Replacement: No Second Hand Smoke Exposure: Yes Use of substances other than those prescribed or required for medical reasons: Refusing to respond Substance Use Type: Heroin Last Used Substance: Hours (ago) Last Used Substance Other:: ed report stated found in br with used syringes and heroin packets Currently Displaying Signs/Symptoms of Drug Intoxication Withdrawal: No Any prior treatment program specific to substance use: No Have you been hit, kicked, punched, or otherwise hurt by someone within the past year? If so, by whom?: No Do you feel safe in your current relationship?: No Current Relationship Is there a partner from a previous relationship who is making you feel unsafe now?: No Are you made to feel afraid or neglected: No Advance Directives: No Advance Directives Information Provided: No Do you have thoughts of harming others: None Do you have a plan to hurt others: No Plan Recently lost weight without trying: Unsure service: No Current occupational status: unemployed Meds Allergies Allergy/AdvReac Type Severity Reaction Status Date / Time Sulfa (Sulfonamide Allergy Mild RASH Verified 08/10/20 11:30 Antibiotics) [Sulfa (Sulfonamides)] Home Medications Medication Instructions Recorded Confirmed Type abacavir 2 tab PO BEDTIME 10/21/20 10/21/20 History atovaquone 750 mg PO DAILY 10/21/20 10/21/20 History rlsdarlgm-uojkuxnc-lizrzgt ala 1 tab PO DAILY 10/21/20 10/21/20 History [Biktarvy] buprenorphine-naloxone [Suboxone] 1 strip SUBLINGUAL BID 10/21/20 10/21/20 History fluticasone propionate [Flovent 1 puff PO BID 10/21/20 10/21/20 History HFA] insulin aspart U-100 [Novolog 100 unit SUBCUT TID 10/21/20 10/21/20 History Flexpen U-100 Insulin] insulin glargine [Lantus Solostar 18 unit SUBCUT BID 10/21/20 10/21/20 History U-100 Insulin] metformin 1 tab PO BID 10/21/20 10/21/20 History Physical Exam Vital Signs: Vital Signs: Last Vital Signs Temp 98.1 F 10/22/20 11:18 Pulse 77 10/22/20 11:18 Resp 15 10/22/20 11:18 BP 128/71 10/22/20 11:18 Pulse Ox 100 10/22/20 11:18 Body Mass Index 18.6 Const: Nutritional Appearance: underweight HENMT: Head: Yes normal to inspection Ears: hearing grossly normal bilaterally Throat: Yes other (thrush) Eyes: General: appearance normal, both eyes and all related structures Resp: Auscultation: clear to auscultation bilaterally Cardio: Rate: regular rate Rhythm: regular rhythm GI: Palpation (GI): Soft to palpation and nontender Skin: General skin exam: no rashes or lesions noted Extrem: Other: right foot mild abrasions ,,slight redness Assessment and Plan (1) Cellulitis: Qualifiers: Laterality: right Site of cellulitis: extremity Site of cellulitis of extremity: lower extremity Qualified Code(s): L03.115 - Cellulitis of right lower limb Problem details: Probably IVDU From foot likely Status: Acute Vancomycin (2) Opiate abuse, continuous: Problem details: Not sure about quitting Status: Acute Suboxone or Methadone recommended,patient to think about it (3) Bacteremia: Problem details: Vancomycin Status: Acute Check echo (4) AIDS: Problem details: Last CD4 count 54,not on medications,declines for now Status: Acute Mepron PJP prevention HAART continue Lucillevy Can give Diflucan for thrush Results Labs CBC & Chem 7: 10/22/20 04:33 10/22/20 04:33 Labs: Short CBC 10/21/20 10/22/20 Range/Units 19:59 04:33 WBC 11.6 H 10.9 H (4.8-10.8) X10*3/uL Hgb 12.5 L 11.0 L (14.0-18.0) g/dl Hct 36.1 L 31.2 L (42-52) % Plt Count 147 L TNP (160-400) X10*3/uL BMP 10/21/20 10/22/20 19:59 04:33 Sodium 122 L 131 L Potassium 5.3 H 4.2 D Chloride 87 L 100 Carbon Dioxide 27 24 BUN 78 H 52 H Creatinine 2.02 H 1.05 Calcium 9.5 8.8 D Liver Function 10/21/20 Range/Units 19:59 Total Bilirubin 0.8 (0.0-1.0) mg/dL Direct Bilirubin 0.7 H (0.0-0.5) mg/dL AST 20 (5-37) U/L ALT 17 (0-40) U/L Alkaline Phosphatase 91 (39-117) U/L Albumin 3.1 L (3.5-5.0) g/dL Urine 10/21/20 Range/Units 20:00 Urine Color YELLOW Urine Appearance CLEAR Urine pH 5.5 (5.0-8.0) Ur Specific [place] 1.025 (1.005-1.025) Urine Protein TRACE (NEG-TRACE) MG/DL Urine Glucose (UA) >=1000 H (NEG) MG/DL Microbiology Microbiology Results: Microbiology 10/21/20 19:59 Blood - Venous Blood Culture - Preliminary 10/21/20 19:59 Blood - Venous Blood Culture - Preliminary
[2020-10-22 16:00] VITALS: BP 131/72; PULSE 79; RESP 17; TEMP 37.2; O2SAT 98
[2020-10-22 17:16] LABS: Glucose, Whole Blood 227 mg/dL (60-115)
[2020-10-22 19:30] VITALS: BP 122/68; PULSE 86; RESP 16; TEMP 37.2; O2SAT 97
[2020-10-22 20:15] LABS: Glucose, Whole Blood 229 mg/dL (60-115)
[2020-10-22] MEDS: vancomycin HCL 1,000 MG in 0.9 % Sodium Chloride 250 ML 270 MG IV (21:24)
[2020-10-22 23:53] VITALS: BP 137/73; PULSE 74; RESP 18; TEMP 37.2; O2SAT 98
[2020-10-23] VITALS (8 sets, daily range): BP systolic 117–143; BP diastolic 60–72; PULSE 57–68; RESP 16–19; TEMP 35.5–37.2; O2SAT 97–100
[2020-10-23] MEDS: Fluticasone Propionate 100 MCG BLST.W.DEV 1 PUFF INHALE ×2 (07:39→20:24)
[2020-10-23 07:52] LABS: Glucose, Whole Blood 162 mg/dL (60-115)
[2020-10-23] MEDS: Insulin Glargine,Hum.rec.anlog 100 UNIT/ML 10 ML VIAL 18 UNIT SUBCUT ×2 (08:13→21:46)
[2020-10-23] MEDS: Atovaquone 750 MG/5 ML ORAL.SUSP PO (08:14)
[2020-10-23] MEDS: Fluconazole 100 MG TABLET 400 MG PO (08:14)
[2020-10-23] MEDS: Insulin Lispro 100 UNIT/ML 3 ML VIAL SUBCUT ×2 (08:14→12:14)
[2020-10-23] MEDS: 0.9 % Sodium Chloride 1,000 ML 100 ML IVCONT ×2 (08:24→16:35)
--- NOTE | 2020-10-23 09:20 | HO.PM.IMPN ---
Subjective Subjective Date of Service: 10/23/20 Interval History: Seen in f/u Cellulitis of right leg in setting of HIV disease and non compliant with meds..Persistent swelling and pain in the the right leg, gram positive cocci in blood Review of Systems -no fever -pain in right leg Physical Exam Vital Signs: Vital Signs: Last Vital Signs Temp 98.7 F 10/23/20 07:27 Pulse 61 10/23/20 07:40 Resp 18 10/23/20 07:27 BP 123/67 10/23/20 07:27 Pulse Ox 99 10/23/20 07:27 Body Mass Index 18.6 Const: General: cooperative Orientation/consciousness: patient oriented x3 HENMT: Other: oral thrush on tongue Resp: Effort & Inspection: normal respiratory effort and able to speak in complete sentences Auscultation: clear to auscultation bilaterally Cardio: Rate: regular rate Rhythm: regular rhythm GI: Palpation (GI): Soft to palpation Auscultation: normal bowel sounds Skin: General skin exam: no rashes or lesions noted Neuro: General: patient oriented x3 Extrem: Other: Right lower extremity edema, erythema, and tenderness around the ankle Objective Data Current Medications Generic Name Dose Route Start Last Admin Trade Name Freq PRN Reason Stop Dose Admin Abacavir Sulfate 600 mg 10/22/20 21:00 10/22/20 21:24 Abacavir Sulfate 300 Mg Tablet PO 600 mg BEDTIME TOMY Administration Acetaminophen 650 mg 10/22/20 00:50 Acetaminophen 325 Mg Tablet PO Q6H PRN Pain, Mild (Pain Scale 1-3) Atovaquone 750 mg 10/22/20 09:00 10/23/20 08:14 Atovaquone 750 Mg/5 Ml Oral.Susp PO 750 mg DAILY TOMY Administration Bictegravir/Emtricitabine/Tenofovir 1 tab 10/22/20 09:00 10/23/20 08:14 Bictegrav/Emtricit/Tenofov Ala 1 Tab Tablet PO 1 tab DAILY TOMY Administration Buprenorphine/Naloxone 1 film 10/22/20 10:00 10/23/20 08:22 Buprenorphine/Naloxone 8/2 Mg Film SUBLINGUAL Not Given BID TOMY Docusate Sodium 100 mg 10/22/20 00:50 Docusate Sodium 100 Mg Capsule PO DAILY PRN Constipation Fluconazole 400 mg 10/21/20 22:50 10/23/20 08:14 Fluconazole 100 Mg Tablet PO 400 mg DAILY TOMY Administration Fluticasone Propionate 1 puff 10/22/20 09:00 10/23/20 07:39 Fluticasone Propionate 100 Mcg Blst.W.Dev INHALE 1 puff BID TOMY Administration Vancomycin HCl 1,000 mg/ 270 mls @ 270 mls/hr 10/22/20 21:00 10/22/20 22:31 Sodium Chloride IV Infused Q24H TOMY Infusion Sodium Chloride 1,000 mls @ 100 mls/hr 10/22/20 05:30 10/23/20 08:24 Ns IVCONT 100 mls/hr .Q10H TOMY Administration Insulin Glargine 18 unit 10/21/20 23:30 10/23/20 08:13 Insulin Glargine,Hum.Rec.Anlog 100 Unit/Ml 10 Ml Vial SUBCUT 18 unit BID TOMY Administration Insulin Human Lispro 0 unit 10/22/20 07:30 10/23/20 08:14 Insulin Lispro 100 Unit/Ml 3 Ml Vial SUBCUT 2 unit QIDACHS TOMY Administration Protocol Ondansetron HCl 4 mg 10/22/20 00:50 Ondansetron Hcl 4 Mg/2 Ml Vial IVPUSH Q8H PRN Nausea and Vomiting Pharmacy Consult 1 each 10/21/20 19:27 Consult Rx Vancomycin Dosing MISCELLANE DAILY PRN Consult order Pharmacy Consult 1 each 10/22/20 00:50 Consult Rx Vancomycin Dosing MISCELLANE DAILY PRN Consult order Sodium Chloride 3 ml 10/22/20 00:50 10/23/20 08:15 0.9 % Sodium Chloride Flush 3 Ml Syringe IVFLUSH Not Given QSHIFT [facility] Labs CBC & Chem 7: 10/22/20 04:33 10/22/20 04:33 Microbiology Microbiology Results: Microbiology 10/21/20 19:59 Blood - Venous Blood Culture - Preliminary Staphylococcus aureus 10/21/20 19:59 Blood - Venous Blood Culture - Preliminary Staphylococcus aureus Assessment and Plan (1) Sepsis: Status: Acute (2) Cellulitis: Problem details: Probably IVDU From foot likely Status: Acute (3) Acute renal failure: Status: Acute (4) Thrush, oral: Status: Acute (5) Acute hyperglycemia: Status: Acute (6) Opiate abuse, continuous: Problem details: Not sure about quitting Status: Acute (7) Non-compliance: Status: Acute (8) HTN (hypertension): Status: Inactive (9) HIV (human immunodeficiency virus infection): Status: Inactive Assessment and Plan: 55-year-old male with past medical history of HIV/aids who presents to the hospital with right lower extremity swelling/erythema as well as thrush in his mouth # sepsis poa d/t Cellulitis of right right leg--improving # Gram-positive cocci bacteremia, likely staff. - Continue IV vancomycin D3, follow level, BMP daily for next 3 days -ID following -Echo to rule endocarditis # oral thrush - in the setting of AIDS - continue fluconazole # HIV/AIDS - patient has been homeless and has not been able to keep up with medications - will resume his atovaquone, Biktarvy, and abacavir - infectious disease consulted -Concepcion for PCP prophyalaxis #Diabetes/ hyperglycemia- - better control -continue Lantus 20 and SSI, # IV drug abuse - offered Suboxone or methadone--will think about it. He has the unfortunate habit of leaving AMA all the time and would not be suprise if he does it again DVT prophylaxis: Heparin
[2020-10-23 10:42] LABS: Blood Urea Nitrogen 22 mg/dL (9-16); Creatinine Clr Calc Pharmacy 76.8; Estimated Glomerular Filt Rate > 60; Glucose Random 221 mg/dL (60-115)
[2020-10-23 10:53] LABS: Anion Gap 8 (12-20); Carbon Dioxide 25 mmol/L (22-29); Chloride 104 mmol/L (96-108); Potassium 3.5 mmol/l (3.3-5.1); Sodium 133 mmol/L (135-145)
--- NOTE | 2020-10-23 11:17 | MHC.CARE ---
CARE team went to check in on pt today. Still presents very ill and minimally engaged. Pt reports he is feeling very ill, states he will be open to discussing resources once feeling more stable. He requests CARE to return back at a later time.
[2020-10-23 11:59] LABS: Glucose, Whole Blood 195 mg/dL (60-115)
[2020-10-23 16:43] LABS: Glucose, Whole Blood 132 mg/dL (60-115)
[2020-10-23 20:13] LABS: Glucose, Whole Blood 147 mg/dL (60-115)
[2020-10-23] MEDS: vancomycin HCL 1,000 MG in 0.9 % Sodium Chloride 250 ML 270 MG IV (21:37)
[2020-10-24] MEDS: 0.9 % Sodium Chloride 1,000 ML 100 ML IVCONT (02:30)
[2020-10-24 03:30] VITALS: BP 124/62; PULSE 54; RESP 19; TEMP 36.7; O2SAT 97
[2020-10-24 07:19] VITALS: BP 126/67; PULSE 50; RESP 18; TEMP 36.3; O2SAT 99
[2020-10-24 07:21] LABS: Anion Gap 8 (12-20); Blood Urea Nitrogen 15 mg/dL (9-16); Calcium 7.8 mg/dL (8.4-10.2); Carbon Dioxide 25 mmol/L (22-29); Chloride 105 mmol/L (96-108); Creatinine Clr Calc Pharmacy 80.8; Estimated Glomerular Filt Rate > 60; Glucose Random 113 mg/dL (60-115); Potassium 3.1 mmol/l (3.3-5.1); Sodium 135 mmol/L (135-145)
[2020-10-24 07:43] LABS: Glucose, Whole Blood 112 mg/dL (60-115)
--- NOTE | 2020-10-24 09:26 | CA_ITS ---
Transthoracic Echocardiogram Patient (Last, First, Middle): Keenan Hamm, Gender: Male Date of : 1965 Age: 55 Procedure Date: 10/24/2020 Procedure Type: Transthoracic Echocardiogram Location: S3E Height: 170.18 cm Weight: 53.98 kg BSA: 1.62 m2 Heart Rate: bpm BP: 124 / 62 mmHg Help Desk Consultant: SANDY Ramos MD: Pérez Smith MD Symptoms: Bacteremia, rule out endocarditis. Conclusions: - Normal left ventricular size, thickness, and systolic function. - Normal right ventricular cavity size and systolic function. - Interatrial shunt cannot be excluded by color Doppler. - No significant valvular or pericardial pathology. Findings Left Ventricle Normal left ventricular size, thickness, and systolic function. The visually estimated ejection fraction is between 55-60%. There is no evidence of regional wall motion abnormalities. Diastolic function is normal for age. Right Ventricle Normal right ventricular cavity size and systolic function. Atria Both atria are normal in size. Interatrial shunt cannot be excluded by color Doppler. Aortic Valve There is a normal trileaflet aortic valve. There is no aortic valve stenosis. There is trace (trivial) aortic valve regurgitation. Mitral Valve The mitral valve appears normal. There is trace mitral valve regurgitation. There is no mitral valve stenosis. Pulmonic Valve Normal pulmonic valve structure and function. There is trace pulmonic valve regurgitation. Tricuspid Valve Normal tricuspid valve structure. There is trace tricuspid valve regurgitation. Significantly elevated right atrial pressure. Mild pulmonary hypertension is present. Great Vessels All visible segments of the aorta are normal in size. The visualized portions of the pulmonary artery and branches are normal. Venous The inferior vena cava is dilated and collapses less than 50% with inspiration. Pericardium/Pleural There is no evidence of pericardial effusion. Prior Study Comparison No significant change compared to prior study dated: 06/08/2020. Recommendations, Care & Conclusions Consider a LOLLY if clinically appropriate. Measurements 2D Linear Measurements IVSd: 0.71 0.6-0.9/0.6-1.0 cm LVIDd: 4.87 3.9-5.3/4.2-5.9 cm LVIDd Index: 3.01 2.4-3.2/2.2-3.1 cm/m2 LVIDs: 3.07 2.0-3.6 cm LVPWd: 0.85 0.7-1.1 cm Ao Root: 2.70 2.1-3.5 cm LA Diam: 3.40 2.7-3.8/3.0-4.0 cm LAIDs Index: 2.10 1.5-2.3 cm/m2 LV Mass: 155.46 67-162/88-224 g LV Mass Index: 95.96 43-95/49-115 g/m2 LVOT Diam: 2.30 3.0+(-)1.3 cm 2D Systolic Function EF 4C: 38.20 >55% EF 2C: 60.50 >55% Mitral Valve MV Pk E: 0.94 MV PK A: 0.76 MV Decel Time: 219.00 E/A: 1.20 E'Lateral: 12.20 E'Medial: 9.79 E/E' Med: 9.60 E/E' Lat: 7.70 Aortic Valve AoV Pk Esvin: 1.49 AoV Mn Esvin: 1.03 AoV VTI: 0.32 AoV Pk Grad: 9.00 Aov Mn Grad: 5.00 VALERIA Cont.VTI: 2.59 LVOT LVOT Pk Esvin: 1.03 LVOT Mn Esvin: 0.61 LVOT VTI: 0.20 LVOT Pk Grad: 4.00 LVOT Mn Grad: 2.00 LVOT Diam: 2.30 LVOT Area: 4.15 Diastolic Function MV Pk E: 0.94 MV Pk A: 0.76 E/A: 1.20 E'Medial: 9.79 E/E' Med: 9.60 E' Laterial: 12.20 E/E' Lat: 7.70 Tricuspid Valve TR Pk Esvin: 2.46 TR Pk Grad: 24.00 RA Press: 15.00 RVSP: 39.00 Great Vessels Aorta Ao Root-2D: 2.70 2.0-3.7 cm Ao Asc: 3.00 2.1-3.4 cm Updated in Other Vendor System with Status of Final Ronak Carson MD electronically signed on 10/24/2020 9:12:43 PM with status of Final
[2020-10-24] MEDS: Fluconazole 100 MG TABLET 400 MG PO (09:40)
[2020-10-24] MEDS: Atovaquone 750 MG/5 ML ORAL.SUSP PO (09:40)
[2020-10-24] MEDS: Insulin Glargine,Hum.rec.anlog 100 UNIT/ML 10 ML VIAL 18 UNIT SUBCUT (09:41)
--- NOTE | 2020-10-24 09:48 | HO.PM.IMPN ---
Subjective Subjective Date of Service: 10/24/20 Interval History: Seen in f/u Cellulitis of right leg in setting of HIV disease and non compliant with meds..Persistent swelling in the leg but no pain Review of Systems -no fever -pain in right leg Physical Exam Vital Signs: Vital Signs: Last Vital Signs Temp 97.3 F 10/24/20 07:19 Pulse 50 10/24/20 07:19 Resp 18 10/24/20 07:19 BP 126/67 10/24/20 07:19 Pulse Ox 99 10/24/20 07:19 Body Mass Index 18.6 Const: General: cooperative Orientation/consciousness: patient oriented x3 HENMT: Other: oral thrush on tongue Resp: Effort & Inspection: normal respiratory effort and able to speak in complete sentences Auscultation: clear to auscultation bilaterally Cardio: Rate: regular rate Rhythm: regular rhythm GI: Palpation (GI): Soft to palpation Auscultation: normal bowel sounds Skin: General skin exam: no rashes or lesions noted Neuro: General: patient oriented x3 Extrem: Other: Right lower extremity edema, erythema, and tenderness around the ankle Objective Data Current Medications Generic Name Dose Route Start Last Admin Trade Name Freq PRN Reason Stop Dose Admin Abacavir Sulfate 600 mg 10/22/20 21:00 10/23/20 21:45 Abacavir Sulfate 300 Mg Tablet PO 600 mg BEDTIME TOMY Administration Acetaminophen 650 mg 10/22/20 00:50 Acetaminophen 325 Mg Tablet PO Q6H PRN Pain, Mild (Pain Scale 1-3) Atovaquone 750 mg 10/22/20 09:00 10/24/20 09:40 Atovaquone 750 Mg/5 Ml Oral.Susp PO 750 mg DAILY TOMY Administration Bictegravir/Emtricitabine/Tenofovir 1 tab 10/22/20 09:00 10/24/20 09:41 Bictegrav/Emtricit/Tenofov Ala 1 Tab Tablet PO 1 tab DAILY TOMY Administration Buprenorphine/Naloxone 1 film 10/22/20 10:00 10/24/20 09:34 Buprenorphine/Naloxone 8/2 Mg Film SUBLINGUAL Not Given BID TOMY Docusate Sodium 100 mg 10/22/20 00:50 Docusate Sodium 100 Mg Capsule PO DAILY PRN Constipation Fluconazole 400 mg 10/21/20 22:50 10/24/20 09:40 Fluconazole 100 Mg Tablet PO 400 mg DAILY TOMY Administration Fluticasone Propionate 1 puff 10/22/20 09:00 10/23/20 20:24 Fluticasone Propionate 100 Mcg Blst.W.Dev INHALE 1 puff BID TOMY Administration Vancomycin HCl 1,000 mg/ 270 mls @ 270 mls/hr 10/22/20 21:00 10/23/20 22:41 Sodium Chloride IV Infused Q24H TOMY Infusion Sodium Chloride 1,000 mls @ 100 mls/hr 10/22/20 05:30 10/24/20 02:30 Ns IVCONT 100 mls/hr .Q10H TOMY Administration Insulin Glargine 18 unit 10/21/20 23:30 10/24/20 09:41 Insulin Glargine,Hum.Rec.Anlog 100 Unit/Ml 10 Ml Vial SUBCUT 18 unit BID TOMY Administration Insulin Human Lispro 0 unit 10/22/20 07:30 10/24/20 08:26 Insulin Lispro 100 Unit/Ml 3 Ml Vial SUBCUT Not Given QIDACHS [facility] Protocol Ondansetron HCl 4 mg 10/22/20 00:50 Ondansetron Hcl 4 Mg/2 Ml Vial IVPUSH Q8H PRN Nausea and Vomiting Pharmacy Consult 1 each 10/21/20 19:27 Consult Rx Vancomycin Dosing MISCELLANE DAILY PRN Consult order Pharmacy Consult 1 each 10/22/20 00:50 Consult Rx Vancomycin Dosing MISCELLANE DAILY PRN Consult order Potassium Chloride 40 meq 10/24/20 09:45 Potassium Chloride Packet 20 Meq Packet PO 10/24/20 09:46 ONCE ONE Sodium Chloride 3 ml 10/22/20 00:50 10/24/20 08:27 0.9 % Sodium Chloride Flush 3 Ml Syringe IVFLUSH Not Given QSHIFT [facility] Labs CBC & Chem 7: 10/22/20 04:33 10/24/20 06:22 Microbiology Microbiology Results: Microbiology 10/21/20 19:59 Blood - Venous Blood Culture - Final Staphylococcus aureus 10/21/20 19:59 Blood - Venous Blood Culture - Final Staphylococcus aureus Assessment and Plan (1) Sepsis: Status: Acute (2) Cellulitis: Problem details: Probably IVDU From foot likely Status: Acute (3) Acute renal failure: Status: Acute (4) Thrush, oral: Status: Acute (5) Acute hyperglycemia: Status: Acute (6) Opiate abuse, continuous: Problem details: Not sure about quitting Status: Acute (7) Non-compliance: Status: Acute (8) HTN (hypertension): Status: Inactive (9) HIV (human immunodeficiency virus infection): Status: Inactive Assessment and Plan: 55-year-old male with past medical history of HIV/aids who presents to the hospital with right lower extremity swelling/erythema as well as thrush in his mouth # sepsis poa d/t Cellulitis of right right leg--improving # MSSA bacteremia, rule endocarditis - DC Vanco and start Nafcillin -ID following -Echo to rule endocarditis -repeat blood cultures today # oral thrush - in the setting of AIDS - continue fluconazole # HIV/AIDS - patient has been homeless and has not been able to keep up with medications - will resume his atovaquone, Biktarvy, and abacavir - infectious disease consulted -Mepron for PCP prophyalaxis #Diabetes/ hyperglycemia- - better control -continue Lantus 20 and SSI, #HypOkalemia--Oral potassium today # IV drug abuse - offered Suboxone or methadone--will think about it. He has the unfortunate habit of leaving AMA all the time and would not be suprise if he does it again DVT prophylaxis: Heparin
--- NOTE | 2020-10-24 09:56 | MHC.CM.PN ---
CM went to meet with pt who is requesting interprete, CM will return with spanish medical interpreter later this morning, pt did seem willing to talk. CM did contact Care Team whom reported they will be in to see pt today as well.
[2020-10-24 11:17] VITALS: BP 132/62; PULSE 53; RESP 18; TEMP 36.6; O2SAT 100
--- NOTE | 2020-10-24 11:27 | MHC.RECOVSUP ---
Recovery Support note: Patient is a 55 year old [place] speaking male. This medical writer and the Recovery Support RN met with patient along with an [facility] air brake worker. Patient reports a desire to stop using heroin. Reports he was sober for 8 years and was able to stay busy working during that period however due to the pandemic he hasn't been able to work and he reports that he slipped backwards in terms of his recovery. Patient reports that Suboxone has been helpful for him and his recovery. Patient reports he has been refusing the Suboxone here at the Hospital because it is a different color than the Suboxone he takes. Explained to patient that we offer the generic version and he may be used to a different brand but that the medication is the same in both. Patient acknowledged but reports he will not be taking the medication, states he tried the generic type before and it made him sick. Encouraged patient to reconsider taking the Suboxone here if he starts to feel sick or if he experiences cravings. Discussed outpatient supports with patient including a [place] [facility] and [facility]. Patient accepted resources offered.
[2020-10-24 11:45] LABS: Glucose, Whole Blood 179 mg/dL (60-115)
[2020-10-24 12:19] LABS: Glucose, Whole Blood 189 mg/dL (60-115)
[2020-10-24] MEDS: Nafcillin Sodium 2 GM in 0.9 % Sodium Chloride 100 ML IV (12:42)
[2020-10-24] MEDS: Potassium Chloride Packet 20 MEQ PACKET 40 MEQ PO (12:43)
[2020-10-24] MEDS: Insulin Lispro 100 UNIT/ML 3 ML VIAL SUBCUT (12:43)
--- NOTE | 2020-10-24 14:41 | PM.DS ---
DS: Providers Provider Date of admission: 10/21/20 22:44 Primary care physician: Unknown Physician Consults: 10/22/20 00:50 Consult to Infectious Diseases Routine Consulting Provider: Karina Max Reason for consultation: HIV/AIDS, thrush Has provider been notified: No 10/22/20 03:37 Consult to Care Team Routine Comment: Reason for consultation: detox DS: Diagnosis Discharge Diagnosis (1) Sepsis: Status: Acute (2) Cellulitis: Status: Acute (3) Acute renal failure: Status: Acute (4) Thrush, oral: Status: Acute (5) Acute hyperglycemia: Status: Acute (6) Opiate abuse, continuous: Status: Acute Problem details: Not sure about quitting. Still using heroin. Last use about a week ago (7) Non-compliance: Status: Acute (8) HTN (hypertension): Status: Inactive (9) HIV (human immunodeficiency virus infection): Status: Inactive DS: Medications Discharge Medications Home Medications: Home Medications Medication Instructions Recorded Confirmed abacavir 2 tab PO BEDTIME 10/21/20 10/21/20 atovaquone 750 mg PO DAILY 10/21/20 10/21/20 [id number] ala 1 tab PO DAILY 10/21/20 10/21/20 [Biktarvy] buprenorphine-naloxone [Suboxone] 1 strip SUBLINGUAL BID 10/21/20 10/21/20 fluticasone propionate [Flovent 1 puff PO BID 10/21/20 10/21/20 HFA] insulin aspart U-100 [Novolog 100 unit SUBCUT TID 10/21/20 10/21/20 Flexpen U-100 Insulin] insulin glargine [Lantus Solostar 18 unit SUBCUT BID 10/21/20 10/21/20 U-100 Insulin] metformin 1 tab PO BID 10/21/20 10/21/20 DS: Summary Hospital Course Hospital Course: As predicted this patient has requested to leave AMA with diagnosis of MSSA bacteremia. He has done this multiple times before but once I again. I went in with director of materials management and made sure he understanding the significant risk that he is taking and risk serious complications and even and he verbalized that he takes full responsibility. He was alert, oriented to self placement and time and well situated. Unfortunately oral route is not effective to treat bacteremia and furthermore is not intereste in meds at this time. Time Spent with Patient Time attestation: Total time spent providing and/or coordinating discharge services: Physical Exam Vital Signs: Vital Signs: Last Vital Signs Temp 97.8 F 10/24/20 11:17 Pulse 53 10/24/20 11:17 Resp 18 10/24/20 11:17 BP 132/62 10/24/20 11:17 Pulse Ox 100 10/24/20 11:17 Body Mass Index 18.6 DS: Data Data Completed and Pending Labs on day of discharge: 10/21/20 18:22 Glucose, Whole Blood Routine 10/21/20 18:42 XR chest 1V Stat 10/21/20 19:01 XR ankle RT min 3V Stat XR foot RT min 3V Stat XR tibia fibula RT 2V Stat US venous duplex LE RT Stat 10/21/20 19:27 Piperacillin Sodium/Tazobactam [Zosyn] 3.375 gm 0.9 % Sodium Chloride [Ns] 50 ml IV ONCE vancomycin HCL 750 mg 0.9 % Sodium Chloride [Ns] 250 ml IV ONCE 10/21/20 19:45 0.9 % Sodium Chloride [Ns] 1,000 ml IVCONT 999 mls/hr 10/21/20 19:59 Acetone, serum QL Stat Basic Metabolic Panel Stat Complete Blood Count Auto Diff Stat Hold Lt Blue - Possible Coag Stat Lactic Acid Stat Liver Panel Stat Magnesium Stat Blood Culture X2 [BC] Stat 10/21/20 20:02 SARS-CoV2/FLU/RSV Stat Venous Blood Gas Stat 10/21/20 20:05 Insulin Regular, Human [Humulin R] 10 unit IVPUSH ONCE ONE 10/21/20 20:45 0.9 % Sodium Chloride [Ns] 500 ml IV 500 mls/hr 10/21/20 21:04 vancomycin HCL 750 mg IV .STK-MED ONE 10/21/20 21:05 Piperacillin Sodium/Tazobactam [Zosyn] 3.375 gm IV .STK-MED ONE 10/21/20 21:35 ECG 12 lead EKG Stat 10/21/20 21:36 EKG Documentation DIRECTED 10/21/20 21:38 Glucose, Whole Blood Routine 10/21/20 21:43 Insulin Regular, Human [Humulin R] 5 unit IVPUSH ONCE ONE 10/21/20 22:33 Glucose, Whole Blood Routine 10/21/20 22:38 Transfer Order Routine 10/21/20 22:50 Insulin Lispro [Humalog] 10 unit SUBCUT ONCE ONE 10/21/20 23:50 Glucose, Whole Blood Routine 10/22/20 00:50 0.9 % Sodium Chloride [Ns] 1,000 ml IVCONT 100 mls/hr 10/22/20 01:08 Glucose, Whole Blood Routine 10/22/20 04:33 Basic Metabolic Panel Routine Complete Blood Count Auto Diff Routine SLIDE REVIEW Routine 10/22/20 07:31 Glucose, Whole Blood Routine 10/22/20 09:00 insulin aspart U-100 [Novolog Flexpen U-100 Insulin] 100 unit SUBCUT TID 10/22/20 11:22 Glucose, Whole Blood Routine 10/22/20 17:08 Glucose, Whole Blood Routine 10/22/20 20:05 Glucose, Whole Blood Routine 10/22/20 21:00 vancomycin HCL 1,000 mg 0.9 % Sodium Chloride [Ns] 250 ml IV Q24H 10/22/20 21:15 vancomycin HCL 1,000 mg .ROUTE .[facility] ONE 10/22/20 22:00 vancomycin HCL 500 mg 0.9 % Sodium Chloride [Ns] 100 ml IV Q24H 10/23/20 07:31 Glucose, Whole Blood Routine 10/23/20 10:03 Basic Metabolic Panel Routine 10/23/20 11:48 Glucose, Whole Blood Routine 10/23/20 16:29 Glucose, Whole Blood Routine 10/23/20 20:02 Glucose, Whole Blood Routine 10/23/20 21:33 vancomycin HCL 1,000 mg .ROUTE .[facility] ONE 10/24/20 06:22 Basic Metabolic Panel DAILY@0600 10/24/20 07:18 Glucose, Whole Blood Routine 10/24/20 09:45 Potassium Chloride Packet [Klor-Con Packet] 40 meq PO ONCE ONE 10/24/20 11:16 Glucose, Whole Blood Routine Glucose, Whole Blood Routine 10/24/20 12:29 Nafcillin Sodium 2 gm IV .[facility] ONE Laboratory Last Values WBC 10.9 X10*3/uL (4.8-10.8) H 10/22/20 04:33 RBC 3.80 X10*6/uL (4.60-5.80) L 10/22/20 04:33 Hgb 11.0 g/dl (14.0-18.0) L 10/22/20 04:33 Hct 31.2 % (42-52) L 10/22/20 04:33 MCV 82.1 fL (80-98) 10/22/20 04:33 MCH 28.9 pg (27.0-33.0) 10/22/20 04:33 MCHC 35.3 g/dl (31.0-36.0) 10/22/20 04:33 RDW 13.1 % (11.0-16.0) 10/22/20 04:33 Plt Count TNP 10/22/20 04:33 MPV TNP 10/22/20 04:33 Immature Gran % (Auto) 1.4 % (0.0-0.4) H 10/22/20 04:33 Neut % (Auto) 82.0 % (45-73) H 10/22/20 04:33 Lymph % (Auto) 8.5 % (20-40) L 10/22/20 04:33 Emmons % (Auto) 7.8 % (2-11) 10/22/20 04:33 Eos % (Auto) 0.1 % (0-4) 10/22/20 04:33 Baso % (Auto) 0.2 % (0-2) 10/22/20 04:33 Lymph # (Auto) 0.9 X10*3/uL (1.2-4.9) L 10/22/20 04:33 Emmons # (Auto) 0.9 X10*3/uL (0.1-1.2) 10/22/20 04:33 Eos # (Auto) 0.0 X10*3/uL (0.0-0.4) 10/22/20 04:33 Baso # (Auto) 0.0 X10*3/uL (0.0-0.2) 10/22/20 04:33 Abs Immat Gran (auto) 0.15 X10*3/uL (0.00-0.03) H 10/22/20 04:33 Absolute Neuts (auto) 9.0 X10*3/uL (2.0-8.3) H 10/22/20 04:33 Absolute Nucleated RBC 0.000 X10*3/uL (0.0-0.012) 10/22/20 04:33 Nucleated RBC % (auto) 0.0 /100WBC (0.0-0.2) 10/22/20 04:33 Smear Tech's Comments VERIFIED 10/22/20 04:33 Hold Blue Top SEE NOTE 10/21/20 19:59 VBG pH 7.29 (7.32-7.43) L 10/21/20 20:02 VBG pCO2 55 mmhg 10/21/20 20:02 VBG pO2 29 mmhg 10/21/20 20:02 VBG HCO3 26 mmol/L 10/21/20 20:02 VBG O2 Saturation 50.4 % 10/21/20 20:02 VBG Base Excess -1.1 mmol/L 10/21/20 20:02 Sodium 135 mmol/L (135-145) 10/24/20 06:22 Potassium 3.1 mmol/l (3.3-5.1) L 10/24/20 06:22 Chloride 105 mmol/L (96-108) 10/24/20 06:22 Carbon Dioxide 25 mmol/L (22-29) 10/24/20 06:22 Anion Gap 8 (12-20) L 10/24/20 06:22 BUN 15 mg/dL (9-16) 10/24/20 06:22 Creatinine 0.77 mg/dL (0.5-1.4) 10/24/20 06:22 Estim Creat Clear Calc 80.8 10/24/20 06:22 Estimated GFR > 60 10/24/20 06:22 POC Glucose 179 mg/dL (60-115) H 10/24/20 11:16 POC Glucose 189 mg/dL (60-115) H 10/24/20 11:16 Random Glucose 113 mg/dL (60-115) D 10/24/20 06:22 Lactic Acid 1.8 mmol/L (0.5-2.0) 10/21/20 19:59 Calcium 7.8 mg/dL (8.4-10.2) L 10/24/20 06:22 Magnesium 2.3 mg/dL (1.6-2.6) 10/21/20 19:59 Total Bilirubin 0.8 mg/dL (0.0-1.0) 10/21/20 19:59 Direct Bilirubin 0.7 mg/dL (0.0-0.5) H 10/21/20 19:59 AST 20 U/L (5-37) 10/21/20 19:59 ALT 17 U/L (0-40) 10/21/20 19:59 Alkaline Phosphatase 91 U/L (39-117) 10/21/20 19:59 Total Protein 8.5 g/dL (6.5-8.0) H 10/21/20 19:59 Albumin 3.1 g/dL (3.5-5.0) L 10/21/20 19:59 Urine Color YELLOW 10/21/20 20:00 Urine Appearance CLEAR 10/21/20 20:00 Urine pH 5.5 (5.0-8.0) 10/21/20 20:00 Ur Specific [place] 1.025 (1.005-1.025) 10/21/20 20:00 Urine Protein TRACE MG/DL (NEG-TRACE) 10/21/20 20:00 Urine Glucose (UA) >=1000 MG/DL (NEG) H 10/21/20 20:00 Urine Ketones NEG MG/DL (NEG) 10/21/20 20:00 Urine Blood 1+ (NEG) H 10/21/20 20:00 Urine Nitrite NEG (NEG) 10/21/20 20:00 Ur Leukocyte Esterase NEG (NEG) 10/21/20 20:00 Urine RBC 5-9 /HPF (0) H 10/21/20 20:00 Urine WBC 0-2 /HPF (0-4) 10/21/20 20:00 Ur Squamous Epith Cells 1+ /LPF 10/21/20 20:00 Urine Bacteria 1+ /LPF 10/21/20 20:00 Acetone, Qual Negative (Negative) 10/21/20 19:59 Coronavirus (PCR) NEGATIVE (Negative) 10/21/20 20:02 Influenza Type A (PCR) NEGATIVE (Negative) 10/21/20 20:02 Influenza Type B (PCR) NEGATIVE (Negative) 10/21/20 20:02 RSV RNA Qual (PCR) NEGATIVE (Negative) 10/21/20 20:02 Discharge Plan Discharge Anticipated Discharge Date/Time: 10/24/20 14:26 Patient Disposition: Left Against Medical Advice Referrals: Physician,Unknown [Primary Care Provider] - Discharge Medications: No Action Flovent HFA 110 mcg/actuation HFA aerosol inhaler 1 puff PO BID RF: 0 Biktarvy 50-200-25 mg tablet 1 tab PO DAILY RF: 0 buprenorphine-naloxone [Suboxone] 8-2 mg film 1 film sublingual DAILY Qty: 14 RF: 0 Lantus U-100 Insulin 100 unit/mL Solution 10 unit subcut DAILY Qty: 1 RF: 0 insulin lispro [Humalog U-100 Insulin] 100 unit/mL Solution See Protocol unit subcut QIDACHS Qty: 1 RF: 0 fluconazole 100 mg Tablet 200 mg PO DAILY Qty: 30 RF: 0 clonidine HCl 0.1 mg Tablet 0.1 mg PO BID PRN (Reason: withdrawal) Qty: 10 RF: 0 nafcillin 2 gram Recon Soln 2 g IV Q4H Qty: 52 RF: 0 atovaquone [Mepron] 750 mg/5 mL Suspension 750 mg PO BID Qty: 60 RF: 0 potassium chloride 20 mEq packet 20 meq PO DAILY Qty: 3 RF: 0 urea 15 gram powder in packet 1 packet PO BID Qty: 6 RF: 0 Discharge Orders: Discharge Order (Routine); Ordered 10/24/20 Ordered By: Pérez Smith Care Plan Goals: left ama Health Concerns: left am Plan of Treatment: left ama Discharge Date/Time: 10/24/20 15:05
--- NOTE | 2020-10-24 15:06 | MHC.CM.PN ---
PT DISCHARGED AGAINST MEDICAL ADVICE AND BEFORE THIS RN COULD OBTAIN [facility] TO TALK WITH PT REGARDING DISPOSITION AND OPTIONS FOR SHELTERS.
== END 2020-10-24 15:05 | disposition left against medical advice (07) | DRG 975 ==
LOC: HO.ED 21:08 → HO.S3 23:36
PROVIDERS: Admitting Provider Internal Medicine; Emergency Provider Emergency Medicine; Visit Provider Internal Medicine
DX: B20 Human immunodeficiency virus [HIV] disease (principal); A41.01 Sepsis due to Methicillin susceptible Staphylococcus aureus; L03.115 Cellulitis of right lower limb; B37.0 Candidal stomatitis; F11.20 Opioid dependence, uncomplicated; I10 Essential (primary) hypertension; Z20.828 Contact with and (suspected) exposure to other viral communicable diseases; E11.65 Type 2 diabetes mellitus with hyperglycemia; F17.210 Nicotine dependence, cigarettes, uncomplicated; Z59.0 Homelessness; Z71.6 Tobacco abuse counseling; Z91.14 Patient's other noncompliance with medication regimen; Z88.2 Allergy status to sulfonamides; Z79.4 Long term (current) use of insulin; Z79.51 Long term (current) use of inhaled steroids; Z79.899 Other long term (current) drug therapy
CPT/HCPCS: 0241U; 36415; 71045; 73590; 73610; 73630; 80048; 80076; 81001; 82009; 82803; 82947; 83605; 83735; 85025; 87040; 87077; 87147; 87186; 93005; 93306; 93971; 94640; 96361; 96365; 96366; 96367; 96375; 96376; 99285; J0574; J2543; J3370

== ENCOUNTER 2020-10-27 17:30 | Inpatient (IN) | payer OTHER, SELFPAY ==
--- NOTE | 2020-10-27 17:44 | XR_ITS ---
EXAMINATION: XR CHEST CLINICAL INFORMATION: Fever with Covid COMPARISON: Chest radiograph 10/21/[address] 03/13/2019 TECHNIQUE: Frontal view of the chest was obtained. FINDINGS: The heart and pulmonary vessels appear normal. There is no evidence of CHF. Calcified granulomas again noted. No acute infiltrates, effusions or worrisome lung masses seen. XR/XR chest 1V IMPRESSION: No acute intrathoracic disease
--- NOTE | 2020-10-27 17:44 | ECG_ITS ---
Test Reason : GENERAL MEDICAL Blood Pressure : / mmHG Vent. Rate : 108 BPM Atrial Rate : 108 BPM P-R Int : 128 ms QRS Dur : 082 ms QT Int : 332 ms P-R-T Axes : 068 067 053 degrees QTc Int : 444 ms Sinus tachycardia Otherwise normal ECG When compared with ECG of 21-OCT-2020 21:38, T wave amplitude has decreased in Anterior leads Referred By: Maryana Garcia Electronically Signed By:Ronak Carson
--- NOTE | 2020-10-27 17:58 | US_ITS ---
EXAMINATION: US VENOUS ULTRASOUND WITH DOPPLER LOWER EXTREMITY, BILATERAL CLINICAL INFORMATION: Bilateral lower extremity edema, swelling and pain COMPARISON: 10/21/2020 TECHNIQUE: Ultrasound of the deep veins is performed from the hip to the calf with compression sonography and color and pulse Doppler assessment. Spectral analysis with color-flow imaging is performed. FINDINGS: RIGHT: There is normal venous compression and respiratory variation and augmented flow. The visualized common femoral vein, superficial femoral vein, profunda femoral vein, popliteal vein, and the trifurcation region shows no evidence of deep venous thrombosis. There is an enlarging complex collection within the fascia of the catheter extending from the popliteal fossa all the way to the ankle. This was noted previously but is significantly larger. Previously this measured about 1 cm in greatest transverse dimension, now measuring 3.4 cm and extending over a longer length. LEFT: There is normal venous compression and respiratory variation and augmented flow. The visualized common femoral vein, superficial femoral vein, profunda femoral vein, popliteal vein, and the trifurcation region shows no evidence of deep venous thrombosis. There is no significant popliteal fossa cyst. If the patient's symptoms persist, followup ultrasound in 5 days 7 days might be of value to exclude proximal propagation from a non-visualized calf vein. US/US venous duplex LE BI IMPRESSION: No DVT demonstrated in either lower extremity. Significantly enlarged complex right calf fluid collection.
[2020-10-27 18:03] VITALS: BMI 21.7
--- NOTE | 2020-10-27 18:03 | ED_ITS ---
HPI - General Adult General Chief complaint: Fever Stated complaint: FEVER 102,+COVID Time Seen by Provider: 10/27/20 17:43 Source: patient and EMS Mode of arrival: EMS Limitations: language barrier History of Present Illness HPI narrative: 55 y/o male with history of medical non-compliance, AIDS (non- compliant with HAART), DM2, HTN, IV heroin abuse, recent admission 10/22-10/24 for RLE cellulitis/MSSA bacteremia who left A presents back with worsening RLE pain, redness and fever at home. He has been unable to ambulate at home due to the pain and swelling. He has had swelling and pain for the last 2 weeks. He al so noted new swelling in his left foot today so he called 911. Upon discharge he admits to not taking any of his medications. He reports intermittent chest pain and SOB. States he was tested for COVID last admission and it was negative. He lives home alone and has had no sick contacts since he left the hospital. He admits to continuing to use IV heroin. MD complaint: leg pain Onset (ago): day(s) (2) Location: lower extremity Radiation: proximal Severity: severe Severity scale (1-10): 10 Quality: burning, aching, sharp and constant Pain Consistency: constant Relieving factors: none Exacerbating factors: movement Associated symptoms: chest pain, fever/chills, malaise and shortness of breath Treatments prior to arrival: none Related Data Home Medications Medication Instructions Recorded Confirmed [id number] [id number] 1 tab PO DAILY 10/21/20 10/27/20 [Biktarvy] buprenorphine-naloxone [Suboxone] 1 strip SUBLINGUAL BID 10/21/20 10/21/20 fluticasone propionate [Flovent 1 puff PO BID 10/21/20 10/27/20 HFA] insulin aspart U-100 [Novolog 0 unit SUBCUT TID 10/21/20 10/27/20 Flexpen U-100 Insulin] insulin glargine [Lantus Solostar 18 unit SUBCUT BID 10/21/20 10/27/20 U-100 Insulin] Allergies Allergy/AdvReac Type Severity Reaction Status Date / Time Sulfa (Sulfonamide Allergy Mild RASH Verified 10/27/20 18:09 Antibiotics) [Sulfa (Sulfonamides)] Review of Systems Review of Systems: Constitutional: + Fever, + Chills ENT/Mouth: No sore throat, No Rhinorrhea, No Swallowing Difficulty Cardiovascular: + Chest Pain, + SOB, No Orthopnea, No Edema Respiratory: No Cough, No Sputum, No Wheezing, No dyspnea Gastrointestinal: No Nausea, No Vomiting, No Diarrhea, No abdominal Pain, No Hematochezia, No Melena Genitourinary: No Dysuria, No Urinary Frequency, No Hematuria Musculoskeletal: + joint pain, + Myalgias Skin: + Skin Lesions, + rash Neuro: + Weakness, No Numbness, No Dizziness, + Headache Psych: + Anxiety/Panic, + Depression Heme/Lymph: No Bruising, No Lymphadenopathy PMFSH Past Medical History Attestation statement: The following information was validated with the patient. Medical History (Updated 10/27/20 @ 23:23 by TOMASZ Martell) AIDS Bacteremia Diabetes Drug abuse Hepatitis C HIV (human immunodeficiency virus infection) HTN (hypertension) MSSA bacteremia Surgical History History of repair of laceration Family History Family History Father No problems noted. Mother No problems noted. Social History Social History (Updated 10/27/20 @ 20:46 by TOMASZ Fagan) Household Members: None Housing: Apartment Alcohol intake: current Alcohol intake frequency: does not drink Smoking Status: Never smoker Tobacco Type: Cigarette Packs Per Day: 1 Cigarettes Per Day: 20.0 Second Hand Smoke Exposure: Yes Use of substances other than those prescribed or required for medical reasons: Yes Substance Use Type: Heroin Substance Use Frequency: Chronic Longstanding Last Used Substance: Unknown Advance Directives: No Advance Directives Information Provided: No service: No Current occupational status: unemployed Physical Exam Vital Signs: Vital Signs: Last Vital Signs Temp 100.5 F H 10/27/20 22:05 Pulse 100 10/27/20 23:11 Resp 16 10/27/20 23:11 BP 119/59 L 10/27/20 23:11 Pulse Ox 98 10/27/20 23:11 Body Mass Index 21.7 Appearance: Alert. Oriented X3. Cachectic with temporal wasting Eyes: Pupils equal, round and reactive to light. ENT: Pharynx normal. Neck: Supraclavicular wasting. Normal inspection. Neck supple. CVS: tachycardic, regular rhythm. Pulses normal. Respiratory: No respiratory distress. Breath sounds normal. Abdomen: Soft and nontender. +BS x4 Skin: Skin warm and dry. Poor skin turgor. No rashes. Extremities: 3+ RLE pitting edema with erythema extending from foot to thigh, left foot with 2+ pitting edema. bilateral LE tenderness throughout Neuro: Oriented X 3. Bilateral LE weakness due to pain. Non-focal. Course Course Course Narrative: 55 y/o male with history of AIDS, DM, recent MSSA bacteremia and RLE cellulitis who left AMA 10/24 presents back with sepsis due to worsening cellulitis. LE dopplers on 10/21 showed 4.4 x 1.1 x 2.5 cm fluid collection seen in the calf - ddx included seroma, hematoma, or abscess. Will repeat LE U/S now, give IVF, broad spectrum abx and plan for admission. He is hemodynamically stable with low grade fever on arrival. Reevaluation(s) Reevaluation #1: No leukocytosis or elevation in lactic acid. COVID negative. U/S pending to reassess fluid collection and for possible development of DVT. Case discussed with hospitalist who will come to evaluate the patient for admission. Reevaluation #2: U/S shows no LE DVT but significantly enlarged complex right calf fluid collection. CT scan with contrast ordered for further evaluation. Will have surgery review imaging. Hospitalist aware of results. Reevaluation #3: 11:47 pm - spoke with Dr. Roper from General Surgery re: CT finding. She recommends IV abx, admission to medicine and assessment tomorrow morning for surgical drainage. Hospitalist updated. Consultations Consultation #1: General Eric Roper Medical Decision Making Lab Data Result diagrams: 10/27/20 18:32 10/27/20 18:32 Labs: Lab Results 10/27/20 10/27/20 10/27/20 Range/Units 18:32 18:32 18:32 WBC 8.1 (4.8-10.8) X10*3/uL RBC 3.66 L (4.60-5.80) X10*6/uL Hgb 10.7 L (14.0-18.0) g/dl Hct 31.0 L (42-52) % MCV 84.7 (80-98) fL MCH 29.2 (27.0-33.0) pg MCHC 34.5 (31.0-36.0) g/dl RDW 13.9 (11.0-16.0) % Plt Count TNP MPV 11.3 (9.4-12.4) fL Immature Gran % (Auto) 0.6 H (0.0-0.4) % Neut % (Auto) 83.7 H (45-73) % Lymph % (Auto) 9.4 L (20-40) % [place] % (Auto) 6.2 (2-11) % Eos % (Auto) 0.0 (0-4) % Baso % (Auto) 0.1 (0-2) % Lymph # (Auto) 0.8 L (1.2-4.9) X10*3/uL [place] # (Auto) 0.5 (0.1-1.2) X10*3/uL Eos # (Auto) 0.0 (0.0-0.4) X10*3/uL Baso # (Auto) 0.0 (0.0-0.2) X10*3/uL Abs Immat Gran (auto) 0.05 H (0.00-0.03) X10*3/uL Absolute Neuts (auto) 6.8 (2.0-8.3) X10*3/uL Absolute Nucleated RBC 0.000 (0.0-0.012) X10*3/uL Nucleated RBC % (auto) 0.0 (0.0-0.2) /100WBC ESR (0-15) MM/HR Hold Blue Top SEE NOTE VBG pH (7.32-7.43) VBG pCO2 mmhg VBG pO2 mmhg VBG HCO3 mmol/L VBG O2 Saturation % VBG Base Excess mmol/L Sodium 131 L (135-145) mmol/L Potassium 3.4 (3.3-5.1) mmol/l Chloride 97 (96-108) mmol/L Carbon Dioxide 27 (22-29) mmol/L Anion Gap 10 L (12-20) BUN 13 (9-16) mg/dL Creatinine 1.04 (0.5-1.4) mg/dL Estim Creat Clear Calc 69.8 Estimated GFR > 60 POC Glucose (60-115) mg/dL Random Glucose 373 H* (60-115) mg/dL Lactic Acid (0.5-2.0) mmol/L Calcium 7.8 L (8.4-10.2) mg/dL Magnesium 1.4 L* (1.6-2.6) mg/dL Ferritin 515 H (20-250) ng/mL Total Bilirubin 0.8 (0.0-1.0) mg/dL Direct Bilirubin 0.7 H (0.0-0.5) mg/dL AST 32 D (5-37) U/L ALT 19 (0-40) U/L Alkaline Phosphatase 139 H D (39-117) U/L Total Creatine Kinase 80 (38-174) U/L Troponin I High Sens (<3.5-35.0) ng/L C-Reactive Protein 4.38 H (< or = 0.50) mg/dL B-Natriuretic Peptide (<100) pg/mL Total Protein 7.1 (6.5-8.0) g/dL Albumin 2.4 L D (3.5-5.0) g/dL Procalcitonin ng/mL Urine Color Urine Appearance Urine pH (5.0-8.0) Ur Specific [place] (1.005-1.025) Urine Protein (NEG-TRACE) MG/DL Urine Glucose (UA) (NEG) MG/DL Urine Ketones (NEG) MG/DL Urine Blood (NEG) Urine Nitrite (NEG) Ur Leukocyte Esterase (NEG) Urine RBC (0) /HPF Urine WBC (0-4) /HPF Ur Squamous Epith Cells /LPF Urine Bacteria /LPF Urine Opiates Screen (Not Detect) Ur Barbiturates Screen (Not Detect) Ur Phencyclidine Scrn (Not Detect) Ur Amphetamines Screen (Not Detect) U Benzodiazepines Scrn (Not Detect) Urine Cocaine Screen (Not Detect) U Marijuana (THC) Screen (Not Detect) Acetone, Qual (Negative) COVID-19 (THEA) (Negative) COVID-19 Clin Com 10/27/20 10/27/20 10/27/20 Range/Units 18:32 18:32 18:32 WBC (4.8-10.8) X10*3/uL RBC (4.60-5.80) X10*6/uL Hgb (14.0-18.0) g/dl Hct (42-52) % MCV (80-98) fL MCH (27.0-33.0) pg MCHC (31.0-36.0) g/dl RDW (11.0-16.0) % Plt Count MPV (9.4-12.4) fL Immature Gran % (Auto) (0.0-0.4) % Neut % (Auto) (45-73) % Lymph % (Auto) (20-40) % [place] % (Auto) (2-11) % Eos % (Auto) (0-4) % Baso % (Auto) (0-2) % Lymph # (Auto) (1.2-4.9) X10*3/uL [place] # (Auto) (0.1-1.2) X10*3/uL Eos # (Auto) (0.0-0.4) X10*3/uL Baso # (Auto) (0.0-0.2) X10*3/uL Abs Immat Gran (auto) (0.00-0.03) X10*3/uL Absolute Neuts (auto) (2.0-8.3) X10*3/uL Absolute Nucleated RBC (0.0-0.012) X10*3/uL Nucleated RBC % (auto) (0.0-0.2) /100WBC ESR (0-15) MM/HR Hold Blue Top VBG pH (7.32-7.43) VBG pCO2 mmhg VBG pO2 mmhg VBG HCO3 mmol/L VBG O2 Saturation % VBG Base Excess mmol/L Sodium (135-145) mmol/L Potassium (3.3-5.1) mmol/l Chloride (96-108) mmol/L Carbon Dioxide (22-29) mmol/L Anion Gap (12-20) BUN (9-16) mg/dL Creatinine (0.5-1.4) mg/dL Estim Creat Clear Calc Estimated GFR POC Glucose (60-115) mg/dL Random Glucose (60-115) mg/dL Lactic Acid 1.5 (0.5-2.0) mmol/L Calcium (8.4-10.2) mg/dL Magnesium (1.6-2.6) mg/dL Ferritin (20-250) ng/mL Total Bilirubin (0.0-1.0) mg/dL Direct Bilirubin (0.0-0.5) mg/dL AST (5-37) U/L ALT (0-40) U/L Alkaline Phosphatase (39-117) U/L Total Creatine Kinase (38-174) U/L Troponin I High Sens (<3.5-35.0) ng/L C-Reactive Protein (< or = 0.50) mg/dL B-Natriuretic Peptide 90 (<100) pg/mL Total Protein (6.5-8.0) g/dL Albumin (3.5-5.0) g/dL Procalcitonin 0.33 ng/mL Urine Color Urine Appearance Urine pH (5.0-8.0) Ur Specific [place] (1.005-1.025) Urine Protein (NEG-TRACE) MG/DL Urine Glucose (UA) (NEG) MG/DL Urine Ketones (NEG) MG/DL Urine Blood (NEG) Urine Nitrite (NEG) Ur Leukocyte Esterase (NEG) Urine RBC (0) /HPF Urine WBC (0-4) /HPF Ur Squamous Epith Cells /LPF Urine Bacteria /LPF Urine Opiates Screen (Not Detect) Ur Barbiturates Screen (Not Detect) Ur Phencyclidine Scrn (Not Detect) Ur Amphetamines Screen (Not Detect) U Benzodiazepines Scrn (Not Detect) Urine Cocaine Screen (Not Detect) U Marijuana (THC) Screen (Not Detect) Acetone, Qual (Negative) COVID-19 (THEA) (Negative) COVID-19 Clin Com 10/27/20 10/27/20 10/27/20 Range/Units 18:32 18:32 18:32 WBC (4.8-10.8) X10*3/uL RBC (4.60-5.80) X10*6/uL Hgb (14.0-18.0) g/dl Hct (42-52) % MCV (80-98) fL MCH (27.0-33.0) pg MCHC (31.0-36.0) g/dl RDW (11.0-16.0) % Plt Count MPV (9.4-12.4) fL Immature Gran % (Auto) (0.0-0.4) % Neut % (Auto) (45-73) % Lymph % (Auto) (20-40) % [place] % (Auto) (2-11) % Eos % (Auto) (0-4) % Baso % (Auto) (0-2) % Lymph # (Auto) (1.2-4.9) X10*3/uL [place] # (Auto) (0.1-1.2) X10*3/uL Eos # (Auto) (0.0-0.4) X10*3/uL Baso # (Auto) (0.0-0.2) X10*3/uL Abs Immat Gran (auto) (0.00-0.03) X10*3/uL Absolute Neuts (auto) (2.0-8.3) X10*3/uL Absolute Nucleated RBC (0.0-0.012) X10*3/uL Nucleated RBC % (auto) (0.0-0.2) /100WBC ESR 96 H (0-15) MM/HR Hold Blue Top VBG pH (7.32-7.43) VBG pCO2 mmhg VBG pO2 mmhg VBG HCO3 mmol/L VBG O2 Saturation % VBG Base Excess mmol/L Sodium (135-145) mmol/L Potassium (3.3-5.1) mmol/l Chloride (96-108) mmol/L Carbon Dioxide (22-29) mmol/L Anion Gap (12-20) BUN (9-16) mg/dL Creatinine (0.5-1.4) mg/dL Estim Creat Clear Calc Estimated GFR POC Glucose (60-115) mg/dL Random Glucose (60-115) mg/dL Lactic Acid (0.5-2.0) mmol/L Calcium (8.4-10.2) mg/dL Magnesium (1.6-2.6) mg/dL Ferritin (20-250) ng/mL Total Bilirubin (0.0-1.0) mg/dL Direct Bilirubin (0.0-0.5) mg/dL AST (5-37) U/L ALT (0-40) U/L Alkaline Phosphatase (39-117) U/L Total Creatine Kinase (38-174) U/L Troponin I High Sens 6.4 (<3.5-35.0) ng/L C-Reactive Protein (< or = 0.50) mg/dL B-Natriuretic Peptide (<100) pg/mL Total Protein (6.5-8.0) g/dL Albumin (3.5-5.0) g/dL Procalcitonin ng/mL Urine Color Urine Appearance Urine pH (5.0-8.0) Ur Specific [place] (1.005-1.025) Urine Protein (NEG-TRACE) MG/DL Urine Glucose (UA) (NEG) MG/DL Urine Ketones (NEG) MG/DL Urine Blood (NEG) Urine Nitrite (NEG) Ur Leukocyte Esterase (NEG) Urine RBC (0) /HPF Urine WBC (0-4) /HPF Ur Squamous Epith Cells /LPF Urine Bacteria /LPF Urine Opiates Screen (Not Detect) Ur Barbiturates Screen (Not Detect) Ur Phencyclidine Scrn (Not Detect) Ur Amphetamines Screen (Not Detect) U Benzodiazepines Scrn (Not Detect) Urine Cocaine Screen (Not Detect) U Marijuana (THC) Screen (Not Detect) Acetone, Qual Negative (Negative) COVID-19 (THEA) (Negative) COVID-19 Clin Com 10/27/20 10/27/20 10/27/20 Range/Units 18:32 18:33 18:36 WBC (4.8-10.8) X10*3/uL RBC (4.60-5.80) X10*6/uL Hgb (14.0-18.0) g/dl Hct (42-52) % MCV (80-98) fL MCH (27.0-33.0) pg MCHC (31.0-36.0) g/dl RDW (11.0-16.0) % Plt Count MPV (9.4-12.4) fL Immature Gran % (Auto) (0.0-0.4) % Neut % (Auto) (45-73) % Lymph % (Auto) (20-40) % [place] % (Auto) (2-11) % Eos % (Auto) (0-4) % Baso % (Auto) (0-2) % Lymph # (Auto) (1.2-4.9) X10*3/uL [place] # (Auto) (0.1-1.2) X10*3/uL Eos # (Auto) (0.0-0.4) X10*3/uL Baso # (Auto) (0.0-0.2) X10*3/uL Abs Immat Gran (auto) (0.00-0.03) X10*3/uL Absolute Neuts (auto) (2.0-8.3) X10*3/uL Absolute Nucleated RBC (0.0-0.012) X10*3/uL Nucleated RBC % (auto) (0.0-0.2) /100WBC ESR (0-15) MM/HR Hold Blue Top VBG pH 7.40 (7.32-7.43) VBG pCO2 48 mmhg VBG pO2 44 mmhg VBG HCO3 2 mmol/L VBG O2 Saturation 81.4 % VBG Base Excess 3.8 mmol/L Sodium (135-145) mmol/L Potassium (3.3-5.1) mmol/l Chloride (96-108) mmol/L Carbon Dioxide (22-29) mmol/L Anion Gap (12-20) BUN (9-16) mg/dL Creatinine (0.5-1.4) mg/dL Estim Creat Clear Calc Estimated GFR POC Glucose (60-115) mg/dL Random Glucose (60-115) mg/dL Lactic Acid (0.5-2.0) mmol/L Calcium (8.4-10.2) mg/dL Magnesium (1.6-2.6) mg/dL Ferritin (20-250) ng/mL Total Bilirubin (0.0-1.0) mg/dL Direct Bilirubin (0.0-0.5) mg/dL AST (5-37) U/L ALT (0-40) U/L Alkaline Phosphatase (39-117) U/L Total Creatine Kinase (38-174) U/L Troponin I High Sens (<3.5-35.0) ng/L C-Reactive Protein (< or = 0.50) mg/dL B-Natriuretic Peptide (<100) pg/mL Total Protein (6.5-8.0) g/dL Albumin (3.5-5.0) g/dL Procalcitonin ng/mL Urine Color YELLOW Urine Appearance CLEAR Urine pH 6.0 (5.0-8.0) Ur Specific [place] 1.025 (1.005-1.025) Urine Protein TRACE (NEG-TRACE) MG/DL Urine Glucose (UA) >=1000 H (NEG) MG/DL Urine Ketones NEG (NEG) MG/DL Urine Blood TRACE (NEG) Urine Nitrite POS H (NEG) Ur Leukocyte Esterase NEG (NEG) Urine RBC 0 (0) /HPF Urine WBC 0 (0-4) /HPF Ur Squamous Epith Cells 1+ /LPF Urine Bacteria NONE /LPF Urine Opiates Screen (Not Detect) Ur Barbiturates Screen (Not Detect) Ur Phencyclidine Scrn (Not Detect) Ur Amphetamines Screen (Not Detect) U Benzodiazepines Scrn (Not Detect) Urine Cocaine Screen (Not Detect) U Marijuana (THC) Screen (Not Detect) Acetone, Qual (Negative) COVID-19 (THEA) Negative (Negative) COVID-19 Clin Com See Note 10/27/20 10/27/20 10/27/20 Range/Units 18:36 18:40 21:52 WBC (4.8-10.8) X10*3/uL RBC (4.60-5.80) X10*6/uL Hgb (14.0-18.0) g/dl Hct (42-52) % MCV (80-98) fL MCH (27.0-33.0) pg MCHC (31.0-36.0) g/dl RDW (11.0-16.0) % Plt Count MPV (9.4-12.4) fL Immature Gran % (Auto) (0.0-0.4) % Neut % (Auto) (45-73) % Lymph % (Auto) (20-40) % [place] % (Auto) (2-11) % Eos % (Auto) (0-4) % Baso % (Auto) (0-2) % Lymph # (Auto) (1.2-4.9) X10*3/uL [place] # (Auto) (0.1-1.2) X10*3/uL Eos # (Auto) (0.0-0.4) X10*3/uL Baso # (Auto) (0.0-0.2) X10*3/uL Abs Immat Gran (auto) (0.00-0.03) X10*3/uL Absolute Neuts (auto) (2.0-8.3) X10*3/uL Absolute Nucleated RBC (0.0-0.012) X10*3/uL Nucleated RBC % (auto) (0.0-0.2) /100WBC ESR (0-15) MM/HR Hold Blue Top VBG pH (7.32-7.43) VBG pCO2 mmhg VBG pO2 mmhg VBG HCO3 mmol/L VBG O2 Saturation % VBG Base Excess mmol/L Sodium (135-145) mmol/L Potassium (3.3-5.1) mmol/l Chloride (96-108) mmol/L Carbon Dioxide (22-29) mmol/L Anion Gap (12-20) BUN (9-16) mg/dL Creatinine (0.5-1.4) mg/dL Estim Creat Clear Calc Estimated GFR POC Glucose 352 H* 276 H (60-115) mg/dL Random Glucose (60-115) mg/dL Lactic Acid (0.5-2.0) mmol/L Calcium (8.4-10.2) mg/dL Magnesium (1.6-2.6) mg/dL Ferritin (20-250) ng/mL Total Bilirubin (0.0-1.0) mg/dL Direct Bilirubin (0.0-0.5) mg/dL AST (5-37) U/L ALT (0-40) U/L Alkaline Phosphatase (39-117) U/L Total Creatine Kinase (38-174) U/L Troponin I High Sens (<3.5-35.0) ng/L C-Reactive Protein (< or = 0.50) mg/dL B-Natriuretic Peptide (<100) pg/mL Total Protein (6.5-8.0) g/dL Albumin (3.5-5.0) g/dL Procalcitonin ng/mL Urine Color Urine Appearance Urine pH (5.0-8.0) Ur Specific [place] (1.005-1.025) Urine Protein (NEG-TRACE) MG/DL Urine Glucose (UA) (NEG) MG/DL Urine Ketones (NEG) MG/DL Urine Blood (NEG) Urine Nitrite (NEG) Ur Leukocyte Esterase (NEG) Urine RBC (0) /HPF Urine WBC (0-4) /HPF Ur Squamous Epith Cells /LPF Urine Bacteria /LPF Urine Opiates Screen POSITIVE H (Not Detect) Ur Barbiturates Screen Not Detected (Not Detect) Ur Phencyclidine Scrn Not Detected (Not Detect) Ur Amphetamines Screen Not Detected (Not Detect) U Benzodiazepines Scrn Not Detected (Not Detect) Urine Cocaine Screen Not Detected (Not Detect) U Marijuana (THC) Screen Not Detected (Not Detect) Acetone, Qual (Negative) COVID-19 (THEA) (Negative) COVID-19 Clin Com ECG Data Attestation: I personally reviewed and interpreted this ECG as follows: Interpretation: sinus tachycardia, HR 108 bpm, normal [place] interval, no ST segment elevations Critical Care Time Critical Care Time Critical Care Time: Yes Total Critical Care Time: 45 Attestation: I attest to critical care time spent taking care of this patient with significant RLE infection and muscle abscess. Time spent reviewing prior records, speaking with consultants, reviewing imaging and developing a treatment plan. Discharge Plan Discharge Clinical Impression: Opiate abuse, continuous, AIDS, Non-compliance, Acute hyperglycemia, Abscess of muscle Cellulitis Qualifiers: Site of cellulitis: extremity Site of cellulitis of extremity: lower extremity Laterality: right Qualified Code(s): L03.115 - Cellulitis of right lower limb Patient Disposition: Admitted As Inpatient
[2020-10-27 18:04] VITALS: BP 152/76; PULSE 106; RESP 20; TEMP 37.6; O2SAT 96; BMI 21.7
[2020-10-27 18:48] LABS: Basophils Percent Auto 0.1 % (0-2); Hemoglobin 10.7 g/dl (14.0-18.0); Imm Gran Abs Auto 0.05 X10*3/uL (0.00-0.03); Imm Gran Pct Auto 0.6 % (0.0-0.4); Lymphocytes Absolute Auto 0.8 X10*3/uL (1.2-4.9); Lymphocytes Percent Auto 9.4 % (20-40); Mean Corpuscular HGB Conc 34.5 g/dl (31.0-36.0); Mean Corpuscular Hemoglobin 29.2 pg (27.0-33.0); Mean Corpuscular Volume 84.7 fL (80-98); Mean Platelet Volume 11.3 fL (9.4-12.4); Monocytes Absolute Auto 0.5 X10*3/uL (0.1-1.2); Monocytes Percent Auto 6.2 % (2-11); Neutrophils Absolute Auto 6.8 X10*3/uL (2.0-8.3); Neutrophils Percent Auto 83.7 % (45-73); Red Blood Count 3.66 X10*6/uL (4.60-5.80); Red Cell Distribution Width 13.9 % (11.0-16.0); White Blood Count 8.1 X10*3/uL (4.8-10.8)
[2020-10-27 18:49] LABS: Glucose, Whole Blood 352 mg/dL (60-115)
[2020-10-27] MEDS: Piperacillin Sodium/Tazobactam 3.375 GM in 0.9 % Sodium Chloride 50 ML IV (18:50)
[2020-10-27] MEDS: 0.9 % Sodium Chloride 1,000 ML 1000 ML IV (18:50)
[2020-10-27 18:51] LABS: MANUAL DIFF FLAG NO
[2020-10-27 18:59] LABS: Appearance Urine CLEAR; Color Urine YELLOW; Glucose Urine UA >=1000 MG/DL (NEG); Leukocyte Esterase Urine NEG (NEG); Nitrite Urine POS (NEG); Specific Gravity - Urine 1.025 (1.005-1.025); Urine Blood TRACE (NEG); Urine Ketones NEG (NEG); Urine Protein TRACE MG/DL (NEG-TRACE)
[2020-10-27 18:59] LABS: Base Excess VBG 3.8 mmol/L; HCO3 VBG 2 mmol/L; Oxygen Saturation VBG 81.4 %; PCO2 VBG 48 mmhg; PO2 VBG 44 mmhg
[2020-10-27 19:00] LABS: Blood Gas Serial # 5414
--- NOTE | 2020-10-27 19:08 | PC.NURSE ---
ultrasound to bedside. abt running. pt nodding off, easily roused by name.
[2020-10-27 19:12] LABS: COVID-19 Test Negative (Negative); IDNOW Serial# 9DD0AD1C
[2020-10-27 19:13] LABS: RBC Urine 0 /HPF (0); Squamous Epithelial Cell Urine 1+ /LPF; WBC Urine 0 /HPF (0-4)
[2020-10-27 19:15] LABS: Acetone, serum QL Negative (Negative); Lactic Acid 1.5 mmol/L (0.5-2.0)
--- NOTE | 2020-10-27 19:20 | PC.NURSE ---
U/S at bedside due to pain/swelling/erythema of right leg.
[2020-10-27 19:25] LABS: B Type Natriuretic Peptide 90 pg/mL (<100); Troponin-I High Sensitivity 6.4 ng/L (<3.5-35.0)
[2020-10-27 19:34] LABS: Alanine Aminotransferase 19 U/L (0-40); Albumin Level 2.4 g/dL (3.5-5.0); Alkaline Phosphatase 139 U/L (39-117); Anion Gap 10 (12-20); Aspartate Amino Transferase 32 U/L (5-37); Bilirubin Direct 0.7 mg/dL (0.0-0.5); Bilirubin Total 0.8 mg/dL (0.0-1.0); Blood Urea Nitrogen 13 mg/dL (9-16); C Reactive Protein 4.38 mg/dL (< or = 0.50); Calcium 7.8 mg/dL (8.4-10.2); Carbon Dioxide 27 mmol/L (22-29); Chloride 97 mmol/L (96-108); Creatinine Clr Calc Pharmacy 69.8; Estimated Glomerular Filt Rate > 60; Glucose Random 373 mg/dL (60-115); Magnesium 1.4 mg/dL (1.6-2.6); Potassium 3.4 mmol/l (3.3-5.1); Sodium 131 mmol/L (135-145); Total Protein 7.1 g/dL (6.5-8.0)
[2020-10-27 19:36] LABS: Erythrocyte Sedimentation Rate 96 MM/HR (0-15)
[2020-10-27 19:38] LABS: Procalcitonin 0.33 ng/mL
[2020-10-27 19:39] LABS: Ferritin 515 ng/mL (20-250)
[2020-10-27 19:52] VITALS: BP 146/71; PULSE 109; RESP 16; O2SAT 98
[2020-10-27] MEDS: Magnesium Sulfate/H2O 2 GM/50 ML PIGGYBACK IV (19:52)
--- NOTE | 2020-10-27 19:53 | PC.NURSE ---
Pt found sitting upright in bed, speaking full sentences, primary Czech speaking only. Desolderer and hospitalist at bedside for eval. Mag sánchez per DEC. VSS. Continue to monitor.
[2020-10-27 20:00] VITALS: TEMP 38
--- NOTE | 2020-10-27 20:27 | P.HPHOSP_ITS ---
History of Present Illness Date of Service: 10/27/20 Chief Complaint: Right leg pain This is a 55-year-old male with history of hepatitis-B, hepatitis-C, diabetes, HIV/aids who was recently admitted for MSSA bacteremia/right lower extremity cellulitis. Unfortunately left against medical advice on October 24. He returns today with ongoing pain of his right leg and difficulty ambulating. In addition he reports fever. He was noted to have temperature 100.4 degrees. Lab work was similar to previous. He underwent ultrasound of the right lower extremity which is pending at this time. He was started on IV Zosyn and the decision was made to readmit him for further management. Review of Systems Review of Systems: Yes all other systems are reviewed and are negative Constitutional: Constitutional: Denies chills and Reports fever(s) Cardiovascular: Cardiovascular: Denies chest pain Respiratory: Respiratory: Denies cough Gastrointestinal: Gastrointestinal: Denies abdominal pain [facility] Medical History (Updated 10/27/20 @ 20:48 by TOMASZ Fagan) AIDS Bacteremia Diabetes Drug abuse Hepatitis C HIV (human immunodeficiency virus infection) HTN (hypertension) MSSA bacteremia Functional capacity: independent ambulation Family History Father No problems noted. Mother No problems noted. Family history: reviewed and not pertinent Surgical History History of repair of laceration Social History (Updated 10/27/20 @ 20:46 by TOMASZ Fagan) Household Members: None Housing: Apartment Alcohol intake: current Alcohol intake frequency: does not drink Smoking Status: Never smoker Tobacco Type: Cigarette Packs Per Day: 1 Cigarettes Per Day: 20.0 Second Hand Smoke Exposure: Yes Use of substances other than those prescribed or required for medical reasons: Yes Substance Use Type: Heroin Substance Use Frequency: Chronic Longstanding Last Used Substance: Unknown Advance Directives: No Advance Directives Information Provided: No service: No Current occupational status: unemployed Meds Allergies Allergy/AdvReac Type Severity Reaction Status Date / Time Sulfa (Sulfonamide Allergy Mild RASH Verified 10/27/20 18:09 Antibiotics) [Sulfa (Sulfonamides)] Home Medications Medication Instructions Recorded Confirmed Type [id number] ala 1 tab PO DAILY 10/21/20 10/27/20 History [Biktarvy] buprenorphine-naloxone [Suboxone] 1 strip SUBLINGUAL BID 10/21/20 10/21/20 History fluticasone propionate [Flovent 1 puff PO BID 10/21/20 10/27/20 History HFA] insulin aspart U-100 [Novolog 0 unit SUBCUT TID 10/21/20 10/27/20 History Flexpen U-100 Insulin] insulin glargine [Lantus Solostar 18 unit SUBCUT BID 10/21/20 10/27/20 History U-100 Insulin] Physical Exam Vital Signs and Narrative: Vital Signs: Last Vital Signs Temp 100.4 F 10/27/20 20:00 Pulse 109 H 10/27/20 19:52 Resp 16 10/27/20 19:52 BP 146/71 H 10/27/20 19:52 Pulse Ox 98 10/27/20 19:52 Body Mass Index 21.7 Const: Other: Chronically ill appearing General: alert and awake Nutritional Appearance: thin Orientation/consciousness: patient oriented x3 HENMT: Head: Yes normocephalic and Yes atraumatic Eyes: Sclerae: sclerae normal Chest: Chest palpation & inspection: normal inspection of the chest Resp: Effort & Inspection: normal respiratory effort and no respiratory distress Cardio: Rate: regular rate Rhythm: regular rhythm GI: Palpation (GI): Soft to palpation and nontender Skin: General skin exam: no rashes or lesions noted Neuro: General: patient oriented x3 Cranial nerves: Yes CN's II-XII intact bilaterally and Yes Bilaterally intact EOM present Extrem: Other: Right lower extremity of the erythema, edema, warmth from foot to thigh; extreme tenderness Results Labs CBC and Chem 7: 10/27/20 18:32 10/27/20 18:32 Labs: Laboratory Results - last 24 hr 10/27/20 10/27/20 10/27/20 18:32 18:32 18:32 MCV 84.7 MCH 29.2 MCHC 34.5 RDW 13.9 Plt Count TNP MPV 11.3 Immature Gran % (Auto) 0.6 H Neut % (Auto) 83.7 H Lymph % (Auto) 9.4 L [place] % (Auto) 6.2 Eos % (Auto) 0.0 Baso % (Auto) 0.1 Lymph # (Auto) 0.8 L [place] # (Auto) 0.5 Eos # (Auto) 0.0 Baso # (Auto) 0.0 Abs Immat Gran (auto) 0.05 H Absolute Neuts (auto) 6.8 Absolute Nucleated RBC 0.000 Nucleated RBC % (auto) 0.0 ESR Hold Blue Top SEE NOTE VBG pH VBG pCO2 VBG pO2 VBG HCO3 VBG O2 Saturation VBG Base Excess Anion Gap 10 L Estim Creat Clear Calc 69.8 Estimated GFR > 60 POC Glucose Random Glucose 373 H* Lactic Acid Calcium 7.8 L Magnesium 1.4 L* Ferritin 515 H Total Bilirubin 0.8 Direct Bilirubin 0.7 H AST 32 D ALT 19 Alkaline Phosphatase 139 H D Troponin I High Sens C-Reactive Protein 4.38 H B-Natriuretic Peptide Total Protein 7.1 Albumin 2.4 L D Procalcitonin Urine Color Urine Appearance Urine pH Ur Specific [place] Urine Protein Urine Glucose (UA) Urine Ketones Urine Blood Urine Nitrite Ur Leukocyte Esterase Urine RBC Urine WBC Ur Squamous Epith Cells Urine Bacteria Acetone, Qual COVID-19 (THEA) [facility] 10/27/20 10/27/20 10/27/20 18:32 18:32 18:32 MCV MCH MCHC RDW Plt Count MPV Immature Gran % (Auto) Neut % (Auto) Lymph % (Auto) [place] % (Auto) Eos % (Auto) Baso % (Auto) Lymph # (Auto) [place] # (Auto) Eos # (Auto) Baso # (Auto) Abs Immat Gran (auto) Absolute Neuts (auto) Absolute Nucleated RBC Nucleated RBC % (auto) ESR Hold Blue Top VBG pH VBG pCO2 VBG pO2 VBG HCO3 VBG O2 Saturation VBG Base Excess Anion Gap Estim Creat Clear Calc Estimated GFR POC Glucose Random Glucose Lactic Acid 1.5 Calcium Magnesium Ferritin Total Bilirubin Direct Bilirubin AST ALT Alkaline Phosphatase Troponin I High Sens C-Reactive Protein B-Natriuretic Peptide 90 Total Protein Albumin Procalcitonin 0.33 Urine Color Urine Appearance Urine pH Ur Specific [place] Urine Protein Urine Glucose (UA) Urine Ketones Urine Blood Urine Nitrite Ur Leukocyte Esterase Urine RBC Urine WBC Ur Squamous Epith Cells Urine Bacteria Acetone, Qual COVID-19 (THEA) [facility] 10/27/20 10/27/20 10/27/20 18:32 18:32 18:32 MCV MCH MCHC RDW Plt Count MPV Immature Gran % (Auto) Neut % (Auto) Lymph % (Auto) [place] % (Auto) Eos % (Auto) Baso % (Auto) Lymph # (Auto) [place] # (Auto) Eos # (Auto) Baso # (Auto) Abs Immat Gran (auto) Absolute Neuts (auto) Absolute Nucleated RBC Nucleated RBC % (auto) ESR 96 H Hold Blue Top VBG pH VBG pCO2 VBG pO2 VBG HCO3 VBG O2 Saturation VBG Base Excess Anion Gap Estim Creat Clear Calc Estimated GFR POC Glucose Random Glucose Lactic Acid Calcium Magnesium Ferritin Total Bilirubin Direct Bilirubin AST ALT Alkaline Phosphatase Troponin I High Sens 6.4 C-Reactive Protein B-Natriuretic Peptide Total Protein Albumin Procalcitonin Urine Color Urine Appearance Urine pH Ur Specific [place] Urine Protein Urine Glucose (UA) Urine Ketones Urine Blood Urine Nitrite Ur Leukocyte Esterase Urine RBC Urine WBC Ur Squamous Epith Cells Urine Bacteria Acetone, Qual Negative COVID-19 (THEA) [facility] 10/27/20 10/27/20 10/27/20 18:32 18:33 18:36 MCV MCH MCHC RDW Plt Count MPV Immature Gran % (Auto) Neut % (Auto) Lymph % (Auto) [place] % (Auto) Eos % (Auto) Baso % (Auto) Lymph # (Auto) [place] # (Auto) Eos # (Auto) Baso # (Auto) Abs Immat Gran (auto) Absolute Neuts (auto) Absolute Nucleated RBC Nucleated RBC % (auto) ESR Hold Blue Top VBG pH 7.40 VBG pCO2 48 VBG pO2 44 VBG HCO3 2 VBG O2 Saturation 81.4 VBG Base Excess 3.8 Anion Gap Estim Creat Clear Calc Estimated GFR POC Glucose Random Glucose Lactic Acid Calcium Magnesium Ferritin Total Bilirubin Direct Bilirubin AST ALT Alkaline Phosphatase Troponin I High Sens C-Reactive Protein B-Natriuretic Peptide Total Protein Albumin Procalcitonin Urine Color YELLOW Urine Appearance CLEAR Urine pH 6.0 Ur Specific [place] 1.025 Urine Protein TRACE Urine Glucose (UA) >=1000 H Urine Ketones NEG Urine Blood TRACE Urine Nitrite POS H Ur Leukocyte Esterase NEG Urine RBC 0 Urine WBC 0 Ur Squamous Epith Cells 1+ Urine Bacteria NONE Acetone, Qual COVID-19 (THEA) Negative COVID-19 [facility] See Note 10/27/20 18:40 MCV MCH MCHC RDW Plt Count MPV Immature Gran % (Auto) Neut % (Auto) Lymph % (Auto) [place] % (Auto) Eos % (Auto) Baso % (Auto) Lymph # (Auto) [place] # (Auto) Eos # (Auto) Baso # (Auto) Abs Immat Gran (auto) Absolute Neuts (auto) Absolute Nucleated RBC Nucleated RBC % (auto) ESR Hold Blue Top VBG pH VBG pCO2 VBG pO2 VBG HCO3 VBG O2 Saturation VBG Base Excess Anion Gap Estim Creat Clear Calc Estimated GFR POC Glucose 352 H* Random Glucose Lactic Acid Calcium Magnesium Ferritin Total Bilirubin Direct Bilirubin AST ALT Alkaline Phosphatase Troponin I High Sens C-Reactive Protein B-Natriuretic Peptide Total Protein Albumin Procalcitonin Urine Color Urine Appearance Urine pH Ur Specific [place] Urine Protein Urine Glucose (UA) Urine Ketones Urine Blood Urine Nitrite Ur Leukocyte Esterase Urine RBC Urine WBC Ur Squamous Epith Cells Urine Bacteria Acetone, Qual COVID-19 (THEA) COVID-19 Clin Com Imaging Radiologist's Impressions: Impressions Chest X-Ray 10/27/20 17:44 IMPRESSION: No acute intrathoracic disease Assessment and Plan (1) AIDS: Problem details: Last CD4 count 54 Status: Acute (2) Bacteremia: Problem details: Vancomycin Status: Acute (3) Sepsis: Status: Acute (4) Thrush, oral: Status: Acute (5) Cellulitis: Qualifiers: Laterality: right Site of cellulitis: extremity Site of cellulitis of extremity: lower extremity Qualified Code(s): L03.115 - Cellulitis of right lower limb Status: Acute 55-year-old male with history of HIV/aids, hepatitis C virus, diabetes, recent admission for RLE cellulitis/MSSA bacteremia (left AMA 10/24/20) returns with ongoing pain and swelling of the right leg Sepsis Bacteremia BCx from 10/21 growing MSSA RLE cellulitis sepsis focused exam completed with no evidence of endocarditis fluid collection seen on US from 10/21 - repeat US pending echo from 10/24 -resume IV nafcillin -general surgery consult -follow-up repeat ultrasound -follow-up repeat blood cultures -pain control Diabetes, uncontrolled -home dose of Lantus -SSI, POC Hypomagnesemia Replaced in the ED -repeat in a.m. Opiate abuse -clonidine prn -addiction medicine consult HIV/aids -resume Biktarvy -Diflucan -Mepron Thrombocytopenia Chronic. Follow CBC Anemia Chronic. At baseline Follow CBC DVT prophylaxis-Lovenox Code status-full code This case was discussed with Dr. Concepcion
--- NOTE | 2020-10-27 20:27 | PM.EVENT ---
Event Note Date of Service: 10/27/20 Event Note: Admission note The patient was seen and evaluated with TOMASZ Cottrell. I agree with her note, assessment and plan with the following. In summary, 54-year-old male with past medical history of hep B, C, HIV aids, diabetes, hypertension, MSSA bacteremia presents to the hospital with complaints right lower extremity swelling and pain. He left the hospital 3 days ago AMA while on treatment for MSSA bacteremia. On exam RLE modertly swollen, warm and tender to touch from foot up to lower thigh mainly on the dorsal area. MSSA bacteremia RLE cellulitis Pending US LE for evaluation of reported fluid collection reported during last admission. To get surgery eval in morning Continue Nafcillin Consult addicion disease for Methadone\Suboxone Rest of evaluations by TOMASZ note.
[2020-10-27] MEDS: Acetaminophen 325 MG TABLET 975 MG PO (20:34)
[2020-10-27] MEDS: Nafcillin Sodium 2 GM in 0.9 % Sodium Chloride 100 ML IV (20:48)
--- NOTE | 2020-10-27 20:48 | PC.NURSE ---
Pt medicated with Tylenol, ABX hung per EMAR.
--- NOTE | 2020-10-27 21:06 | CT_ITS ---
EXAMINATION: CT LOWER LEG, RIGHT CLINICAL INFORMATION: Cellulitis. Fluid collection. COMPARISON: None TECHNIQUE: IV injection 85 mL Omnipaque 350 administered. Axial images obtained through the right leg from knee through ankle. Coronal and sagittal reformatted images are performed at the CT scanner. This CT examination was performed using dose optimization techniques as appropriate, variously including the following: *Automated exposure control. *Adjustment of mA and/or kV according to patient size (this includes techniques or standardized protocols for targeted exams where dose is matched to indication/reason for exam; i.e. extremities or head). *Use of iterative reconstruction technique. DLP: 281 mGy-cm FINDINGS: There is a large complex fluid collection at the posterior muscular compartment of the leg. This has faint enhancement of the wall of the collection. Difficult to measure the collection. The collection is seen extending from the superior most slice posterior to the knee and extends all the way to the ankle joint at the posterior margin of the gastrocnemius. There is a component that extends more centrally and medial running posterior to the tibia. Posterior component measures about 6 x 4 cm. The central collection measures about 2 cm but extends from the proximal tibia to the ankle joint. Both of these components, however, do communicate. There is also a fluid collection in the subcutaneous tissue at the anterior lateral leg superficial to the anterior tibialis muscle that extends from the knee to the distal leg. This does not demonstrate rim enhancement, however. There is no air in the soft tissues. No bone destruction. No abnormal periosteal reaction. No radiographic evidence for osteomyelitis. CT/CT lower leg RT w con IMPRESSION: 1. Large fluid collection in the posterior muscular compartment with rim enhancement consistent with abscess. 2. Smaller subcutaneous fluid collection at the anterior compartment. There is also generalized subcutaneous edema in the leg.
[2020-10-27 21:43] LABS: Amphetamine Screen Urine Not Detected (Not Detect); Barbiturates, Urine Not Detected (Not Detect); Benzodiazepines Screen Urine Not Detected (Not Detect); Cannabinoid Screen Urine Not Detected (Not Detect); Cocaine Screen Urine Not Detected (Not Detect); Opiate Screen Urine POSITIVE (Not Detect); Phencyclidine Screen Urine Not Detected (Not Detect)
[2020-10-27] MEDS: Insulin Lispro 100 UNIT/ML 3 ML VIAL SUBCUT (21:59)
[2020-10-27] MEDS: Insulin Glargine,Hum.rec.anlog 100 UNIT/ML 10 ML VIAL 18 UNIT SUBCUT (21:59)
[2020-10-27] MEDS: Enoxaparin Sodium 40 MG/0.4 ML SYRINGE SUBCUT (21:59)
[2020-10-27] MEDS: Atovaquone 750 MG/5 ML ORAL.SUSP PO (22:00)
--- NOTE | 2020-10-27 22:03 | PC.NURSE ---
POC 276 mg/dl. Pt medicated with MAR, off to CT on hospital bed. VSS, pt remains febrile @ 100.5. Provider aware.
[2020-10-27 22:05] VITALS: BP 126/67; PULSE 103; RESP 16; TEMP 38.1; O2SAT 98
[2020-10-27 22:06] LABS: Glucose, Whole Blood 276 mg/dL (60-115)
[2020-10-27] MEDS: iohexoL 350 MG/ML 100 ML INFUS..BTL IV (22:28)
--- NOTE | 2020-10-27 22:33 | PC.NURSE ---
Pt returns from CT on hospital bed without incident. This RN contacting hospitalist as pt remains febrile after Tylenol, current temp 100.5. Continue to monitor.
[2020-10-27] MEDS: Acetaminophen 325 MG TABLET 650 MG PO (23:07)
[2020-10-27 23:11] VITALS: BP 119/59; PULSE 100; RESP 16; O2SAT 98
--- NOTE | 2020-10-27 23:11 | PC.NURSE ---
This RN contacting hospitalist regarding elevated temp despite 975 mg of Tylenol @ 1930. This RN instructed by hospitalist to medicate pt again with Tylenol. Pt medicated with Tylenol per MD request. Pt resting in bed, requesting crackers and ice chips. VSS. Continue to monitor.
[2020-10-28] VITALS (8 sets, daily range): BP systolic 102–141; BP diastolic 59–71; PULSE 68–92; RESP 16; TEMP 36.7–37.4; O2SAT 95–100
[2020-10-28] MEDS: Nafcillin Sodium 2 GM in 0.9 % Sodium Chloride 100 ML IV ×5 (00:12→19:00)
[2020-10-28] MEDS: 0.9 % Sodium Chloride Flush 3 ML SYRINGE IVFLUSH (00:30)
--- NOTE | 2020-10-28 04:36 | PC.NURSE ---
Pt sleeping in bed, wakes easily to verbal stimuli. ABX hung per DEC. Pt expressing frustration about remaining in the ER despite planned admission. Pt assisted into POC, lights dim for comfort. Continue to monitor.
--- NOTE | 2020-10-28 05:50 | PC.NURSE ---
AM labs obtained and sent.
[2020-10-28 05:54] LABS: MANUAL DIFF FLAG NO
[2020-10-28 06:02] LABS: Basophils Percent Auto 0.1 % (0-2); Hematocrit 27.3 % (42-52); Hemoglobin 9.5 g/dl (14.0-18.0); Imm Gran Abs Auto 0.05 X10*3/uL (0.00-0.03); Imm Gran Pct Auto 0.7 % (0.0-0.4); Lymphocytes Absolute Auto 0.7 X10*3/uL (1.2-4.9); Mean Corpuscular HGB Conc 34.8 g/dl (31.0-36.0); Mean Corpuscular Hemoglobin 28.9 pg (27.0-33.0); Monocytes Absolute Auto 0.6 X10*3/uL (0.1-1.2); Monocytes Percent Auto 7.8 % (2-11); Neutrophils Absolute Auto 5.8 X10*3/uL (2.0-8.3); Neutrophils Percent Auto 81.4 % (45-73); Platelet Count 102 X10*3/uL (160-400); Red Blood Count 3.29 X10*6/uL (4.60-5.80); Red Cell Distribution Width 13.9 % (11.0-16.0); White Blood Count 7.1 X10*3/uL (4.8-10.8)
[2020-10-28 06:28] LABS: Anion Gap 9 (12-20); Blood Urea Nitrogen 11 mg/dL (9-16); Calcium 7.1 mg/dL (8.4-10.2); Carbon Dioxide 26 mmol/L (22-29); Chloride 99 mmol/L (96-108); Creatinine Clr Calc Pharmacy 100.8; Estimated Glomerular Filt Rate > 60; Glucose Random 103 mg/dL (60-115); Magnesium 1.8 mg/dL (1.6-2.6); Sodium 131 mmol/L (135-145)
--- NOTE | 2020-10-28 07:20 | PC.NURSE ---
report taken from
--- NOTE | 2020-10-28 07:20 | PC.NURSE ---
rpeort taken from monica rn pt sitting up in bed, nad. poc glucose checked. pt appears frustrated w this rn, audibly sighing at this sign writer letterer or painter. given blanket per request, breakfast tray at bedside. [id number]: per burn table operator, call from surgery sts pt to have i&d at some point today, pt needs to be npo.
[2020-10-28 07:21] LABS: Glucose, Whole Blood 169 mg/dL (60-115)
--- NOTE | 2020-10-28 09:30 | P.CONGS_ITS ---
History of Present Illness Consult details Consult date: 10/28/20 Reason for consult: other (Right leg posterior calf abscess from the knee to the ankle) Requesting physician: Angelina Sánchez Narrative: This is a 55-year-old gentleman with a history of HIV now aids last CD4 count was 53 who was seen in the emergency department 10/21/2019 with cellulitis of the right lower extremity. The patient was admitted to the Medicine service and placed on IV antibiotics and then he left AMA. Patient re- presented to the emergency department last evening 10/27/2017 with worsening pain of bilateral lower extremities most on the right. He has had worsening swelling and has had the inability to walk in the past 2 and half weeks. Patient denies any fever chills shortness of breath or chest pain. He reports it is very difficult to move his toes on his right foot. He reports that he is set swelling from the thigh all the way down to the foot. He reports his pain is 10/10 on a pain scale. Patient underwent a CT scan of the right lower extremity from the knee to the ankle which showed a complex fluid collection without any gas in it that runs from the posterior knee all the way down to the ankle. This fluid collection is rim enhancing within the muscle in the posterior bellies of the muscle. The fluid collection becomes divergent at the mid calf and is in 2 separate muscles but they are all interconnected. Patient has no white blood cell count. Surgery was consulted regarding the possibility of drainage of an abscess. CAT scan report reading says this fluid collection is consistent with an abscess. There is no subcutaneous component of an abscess. Review of Systems Constitutional: Constitutional: Denies anorexia, Reports body ache(s), Denies chills, Reports difficulty sleeping, Reports fatigue, Denies fever(s), Denies headache(s), Reports lethargy and Reports weakness Eyes: Eyes: Reports blurry vision, Reports change in vision and Reports requires corrective lenses ENT: Denies dysphagia, Denies headache(s), Denies lip swelling, Denies epista xis, Reports mouth lesions and Denies neck pain Cardiovascular: Cardiovascular: Denies chest pain, Denies chest pain at rest, Reports syncope, Denies rapid heart rate, Reports pedal edema (Right foot), Denies irregular heart rhythm, Reports claudication (Bilateral legs), Reports leg edema (Right), Denies lightheadedness, Denies Loss of Consciousness and Denies dyspnea Respiratory: Respiratory: Denies dyspnea Gastrointestinal: Gastrointestinal: Denies abdominal pain, Denies melena, Denies bloating, Denies dysphagia, Denies heartburn, Denies diarrhea, Denies nausea and Denies vomiting Genitourinary: Genitourinary: Denies hematuria, Denies oliguria, Denies difficulty urinating, Denies urinary frequency, Denies urinary hesitancy and Denies urinary incontinence Musculoskeletal: Musculoskeletal: Reports back pain, Reports myalgias, Reports atrophy and Denies neck pain Integumentary/Breasts: Skin/Breast: Denies breast pain and Denies breast mass Neurologic: Reports syncope, Denies headache(s), Reports memory loss and Reports weakness Psychiatric: Psychiatric: Reports anxiety, Reports depression and Reports memory loss Endocrine: Endocrine: Reports fatigue and Denies flushing Hematologic/Lymphatic: Hematologic/Lymphatic: Reports easy bleeding and Reports easy bruising Allergic/Immunologic: Allergic/Immunologic: Denies lip swelling PMFSH Past Medical History Medical History (Updated 10/28/20 @ 12:57 by Cathie Roper MD) AIDS Anxiety Bacteremia Depression Diabetes Drug abuse Hepatitis C HIV (human immunodeficiency virus infection) HTN (hypertension) MSSA bacteremia Functional capacity: independent ambulation Family History Family History Father Alcoholism Mother Type 2 diabetes mellitus Sister No problems noted. Sister No problems noted. Brother No problems noted. Son No problems noted. Family history: reviewed and not pertinent Surgical History Surgical History History of repair of laceration Social History Social History (Updated 10/28/20 @ 13:00 by Cathie Roper MD) Household Members: None Housing: Apartment Alcohol intake: current Alcohol intake frequency: does not drink Smoking Status: Never smoker Tobacco Type: Cigarette Packs Per Day: 1 Cigarettes Per Day: 20.0 Years Smoked: 17 Second Hand Smoke Exposure: Yes Use of substances other than those prescribed or required for medical reasons: Yes Substance Use Type: Heroin Substance Use Frequency: Chronic Longstanding Last Used Substance: Weeks (ago) Last Used Substance Other:: Four weeks ago Advance Directives: No Advance Directives Information Provided: No service: No Current occupational status: unemployed Meds Allergies Allergy/AdvReac Type Severity Reaction Status Date / Time Sulfa (Sulfonamide Allergy Mild RASH Verified 10/28/20 13:00 Antibiotics) [Sulfa (Sulfonamides)] Home Medications Medication Instructions Recorded Confirmed Type [id number] ala 1 tab PO DAILY 10/21/20 10/27/20 History [Biktarvy] buprenorphine-naloxone [Suboxone] 1 strip SUBLINGUAL BID 10/21/20 10/21/20 History fluticasone propionate [Flovent 1 puff PO BID 10/21/20 10/27/20 History HFA] insulin aspart U-100 [Novolog 0 unit SUBCUT TID 10/21/20 10/27/20 History Flexpen U-100 Insulin] insulin glargine [Lantus Solostar 18 unit SUBCUT BID 10/21/20 10/27/20 History U-100 Insulin] Physical Exam Vital Signs: Vital Signs: Last Vital Signs Temp 99.1 F 10/28/20 07:54 Pulse 92 10/28/20 07:54 Resp 16 10/28/20 07:54 BP 122/66 10/28/20 07:54 Pulse Ox 95 10/28/20 07:54 Body Mass Index 21.7 Const: General: cooperative, no acute distress, alert and other (Cachectic) Orientation/consciousness: patient oriented x3 HENMT: Head: Yes normal to inspection, Yes normocephalic and Yes atraumatic Ears: hearing grossly normal bilaterally Mouth: Normal oral and palatal mucosa present Eyes: General: appearance normal, both eyes and all related structures Eyelids: Yes eyelids normal Conjunctivae: conjunctivae normal Sclerae: sclerae normal EOM: EOMs intact bilaterally Neck: Neck: Yes no lymphadenopathy and Yes trachea midline Resp: Effort & Inspection: normal respiratory effort, no audible wheezes, no cough, no grunting, not labored, no pursed lip breathing, no stridor and not tachypneic Auscultation: clear to auscultation bilaterally, no crackles, no rales, no rhonchi and no wheezes Cardio: Rate: regular rate Heart sounds: S1 normal heart sound present, S2 normal heart sound present, no gallops, no murmurs and no rubs GI: Inspection: No Abdominal wall edema and No distended Palpation (GI): Soft to palpation, nontender, no guarding, not rigid and No hepatosplenomegaly present Skin: General skin exam: no rashes or lesions noted Trauma: no lacerations or abrasions Neuro: General: patient oriented x3 Cranial nerves: Yes CN's II-XII intact bilaterally Extrem: Other: Right lower extremity significantly swollen. Very tender to palpation from the mid thigh down to the foot. Patient unable to wiggle toes except a slight amount. Unable to assess for pulses given the patient's pain. There appears to be an effusion at the knee. There is hyperpigmentation of the skin on the leg with associated erythema that runs from the ankle and proximal foot to the knee. Left lower extremity appears to be normal without any edema. Patient is tender to palpation of in the calf of the left lower extremity. Psych: Appearance: disheveled Affect: normal affect Attitude: cooperative Thought process: Normal thought process present Thought content: Normal thought content present Results Labs Result diagrams: 10/28/20 05:49 10/28/20 05:49 Labs: Abnormal lab results 10/27/20 10/27/20 10/27/20 Range/Units 18:32 18:32 18:32 RBC 3.66 L (4.60-5.80) X10*6/uL Hgb 10.7 L (14.0-18.0) g/dl Hct 31.0 L (42-52) % Plt Count (160-400) X10*3/uL MPV (9.4-12.4) fL Immature Gran % (Auto) 0.6 H (0.0-0.4) % Neut % (Auto) 83.7 H (45-73) % Lymph % (Auto) 9.4 L (20-40) % Lymph # (Auto) 0.8 L (1.2-4.9) X10*3/uL Abs Immat Gran (auto) 0.05 H (0.00-0.03) X10*3/uL ESR 96 H (0-15) MM/HR Sodium 131 L (135-145) mmol/L Potassium (3.3-5.1) mmol/l Anion Gap 10 L (12-20) POC Glucose (60-115) mg/dL Random Glucose 373 H* (60-115) mg/dL Calcium 7.8 L (8.4-10.2) mg/dL Magnesium 1.4 L* (1.6-2.6) mg/dL Ferritin 515 H (20-250) ng/mL Direct Bilirubin 0.7 H (0.0-0.5) mg/dL Alkaline Phosphatase 139 H D (39-117) U/L C-Reactive Protein 4.38 H (< or = 0.50) mg/dL Albumin 2.4 L D (3.5-5.0) g/dL Urine Glucose (UA) (NEG) MG/DL Urine Nitrite (NEG) Urine Opiates Screen (Not Detect) 10/27/20 10/27/20 10/27/20 Range/Units 18:36 18:36 18:40 RBC (4.60-5.80) X10*6/uL Hgb (14.0-18.0) g/dl Hct (42-52) % Plt Count (160-400) X10*3/uL MPV (9.4-12.4) fL Immature Gran % (Auto) (0.0-0.4) % Neut % (Auto) (45-73) % Lymph % (Auto) (20-40) % Lymph # (Auto) (1.2-4.9) X10*3/uL Abs Immat Gran (auto) (0.00-0.03) X10*3/uL ESR (0-15) MM/HR Sodium (135-145) mmol/L Potassium (3.3-5.1) mmol/l Anion Gap (12-20) POC Glucose 352 H* (60-115) mg/dL Random Glucose (60-115) mg/dL Calcium (8.4-10.2) mg/dL Magnesium (1.6-2.6) mg/dL Ferritin (20-250) ng/mL Direct Bilirubin (0.0-0.5) mg/dL Alkaline Phosphatase (39-117) U/L C-Reactive Protein (< or = 0.50) mg/dL Albumin (3.5-5.0) g/dL Urine Glucose (UA) >=1000 H (NEG) MG/DL Urine Nitrite POS H (NEG) Urine Opiates Screen POSITIVE H (Not Detect) 10/27/20 10/28/20 10/28/20 Range/Units 21:52 05:49 05:49 RBC 3.29 L (4.60-5.80) X10*6/uL Hgb 9.5 L (14.0-18.0) g/dl Hct 27.3 L (42-52) % Plt Count 102 L D (160-400) X10*3/uL MPV 9.0 L (9.4-12.4) fL Immature Gran % (Auto) 0.7 H (0.0-0.4) % Neut % (Auto) 81.4 H (45-73) % Lymph % (Auto) 10.0 L (20-40) % Lymph # (Auto) 0.7 L (1.2-4.9) X10*3/uL Abs Immat Gran (auto) 0.05 H (0.00-0.03) X10*3/uL ESR (0-15) MM/HR Sodium 131 L (135-145) mmol/L Potassium 3.0 L (3.3-5.1) mmol/l Anion Gap 9 L (12-20) POC Glucose 276 H (60-115) mg/dL Random Glucose (60-115) mg/dL Calcium 7.1 L D (8.4-10.2) mg/dL Magnesium (1.6-2.6) mg/dL Ferritin (20-250) ng/mL Direct Bilirubin (0.0-0.5) mg/dL Alkaline Phosphatase (39-117) U/L C-Reactive Protein (< or = 0.50) mg/dL Albumin (3.5-5.0) g/dL Urine Glucose (UA) (NEG) MG/DL Urine Nitrite (NEG) Urine Opiates Screen (Not Detect) 10/28/20 Range/Units 07:17 RBC (4.60-5.80) X10*6/uL Hgb (14.0-18.0) g/dl Hct (42-52) % Plt Count (160-400) X10*3/uL MPV (9.4-12.4) fL Immature Gran % (Auto) (0.0-0.4) % Neut % (Auto) (45-73) % Lymph % (Auto) (20-40) % Lymph # (Auto) (1.2-4.9) X10*3/uL Abs Immat Gran (auto) (0.00-0.03) X10*3/uL ESR (0-15) MM/HR Sodium (135-145) mmol/L Potassium (3.3-5.1) mmol/l Anion Gap (12-20) POC Glucose 169 H (60-115) mg/dL Random Glucose (60-115) mg/dL Calcium (8.4-10.2) mg/dL Magnesium (1.6-2.6) mg/dL Ferritin (20-250) ng/mL Direct Bilirubin (0.0-0.5) mg/dL Alkaline Phosphatase (39-117) U/L C-Reactive Protein (< or = 0.50) mg/dL Albumin (3.5-5.0) g/dL Urine Glucose (UA) (NEG) MG/DL Urine Nitrite (NEG) Urine Opiates Screen (Not Detect) Short CBC 10/27/20 10/28/20 Range/Units 18:32 05:49 WBC 8.1 7.1 (4.8-10.8) X10*3/uL Hgb 10.7 L 9.5 L (14.0-18.0) g/dl Hct 31.0 L 27.3 L (42-52) % Plt Count TNP 102 L D BMP 10/27/20 10/28/20 18:32 05:49 Sodium 131 L 131 L Potassium 3.4 3.0 L Chloride 97 99 Carbon Dioxide 27 26 BUN 13 11 Creatinine 1.04 0.72 Calcium 7.8 L 7.1 L D Cardiac Enzymes 10/27/20 Range/Units 18:32 Total Creatine Kinase 80 (38-174) U/L Liver Function 10/27/20 Range/Units 18:32 Total Bilirubin 0.8 (0.0-1.0) mg/dL Direct Bilirubin 0.7 H (0.0-0.5) mg/dL AST 32 D (5-37) U/L ALT 19 (0-40) U/L Alkaline Phosphatase 139 H D (39-117) U/L Albumin 2.4 L D (3.5-5.0) g/dL Urine 10/27/20 Range/Units 18:36 Urine Color YELLOW Urine Appearance CLEAR Urine pH 6.0 (5.0-8.0) Ur Specific [place] 1.025 (1.005-1.025) Urine Protein TRACE (NEG-TRACE) MG/DL Urine Glucose (UA) >=1000 H (NEG) MG/DL All other labs normal. Assessment and Plan (1) Abscess of muscle: Status: Acute This is a 55-year-old gentleman with a last CD4 count was 53 who presented to the emergency department with worsening swelling erythema and pain of the right lower extremity. CT scan shows a complex fluid collection that runs in the posterior muscle bellies of the right lower extremity from the knee to the ankle with division of the fluid collection at the mid calf. There is no air noted within this fluid collection. The fluid collection is only noted within the muscle and takes up a large portion of the muscle. There is no subcutaneous component of an abscess. The fluid collection is likely an abscess given the radiologic reading. Given the patient's clinical exam and difficulty with tolerating exam on the left lower extremity and moving the toes I recommend obtaining a orthopedic consultation for possible drainage of this fluid collection or further evaluation. There is no indication for any general surgical intervention as there is no subcutaneous abscess to be drained. Possible abscess is very deep in the muscle tissue. Please call with questions. (2) Cellulitis of right leg: Status: Acute
[2020-10-28] MEDS: Insulin Glargine,Hum.rec.anlog 100 UNIT/ML 10 ML VIAL 18 UNIT SUBCUT ×2 (10:42→21:30)
[2020-10-28] MEDS: Atovaquone 750 MG/5 ML ORAL.SUSP PO ×2 (10:42→21:32)
[2020-10-28] MEDS: Fluconazole 100 MG TABLET 200 MG PO (11:08)
--- NOTE | 2020-10-28 11:27 | US_ITS ---
EXAMINATION: ULTRASOUND-GUIDED RIGHT LEG ABSCESS DRAINAGE CLINICAL INFORMATION: Right lower leg abscess. COMPARISON: None TECHNIQUE: Following explaining ultrasound-guided right calf abscess drainage procedure, benefits and risk, a written consent was obtained from the patient via a raschel knitting machine operator. The urinary ultrasound imaging was performed through the right posterior calf. An optimal site was selected along the mid to lower calf posteriorly and marked. The marked site was cleaned and draped in usual sterile manner. 1% lidocaine was injected at puncture site. A 5 recommend Yueh catheter was then inserted into the large abscess. Thick fluid was aspirated into a vacuum bottle via connecting cannula. Serial ultrasound imaging was performed during exam revealed a very thick collection higher up in the calf region. Could not be drained. After obtaining all fluid and observing no more fluid return, catheter was withdrawn approximately after 15 to 20 minutes. postprocedure. Complete hemostasis achieved at puncture site. Simple sterile dressing applied postprocedure. Patient tolerated procedure extremely well. Simple FINDINGS: On preliminary ultrasound imaging there is a large area of echogenic fluid collection posterior calf consistent with abscess. Approximately 220 mL of thick pus was drained from this area. Lesion still has residual thick fluid collection which could not be aspirated. Fluid collected was sent to lab as per referring physician order fall Gram stain, culture and sensitivity. US/US drain soft tissue w imaging IMPRESSION: Successful ultrasound-guided right calf abscess drainage without immediate complications.
--- NOTE | 2020-10-28 16:18 | PC.NURSE ---
pt taken to i&d procedure via stretcher
[2020-10-28] MEDS: Lidocaine HCl 1 % MPF 5 ML VIAL SUBCUT (17:13)
--- NOTE | 2020-10-28 18:30 | PC.NURSE ---
report given to dale boudreaux
[2020-10-28 20:35] LABS: INTERNATIONAL NORM RATIO 1.7 (0.9-1.1); Prothrombin Time 20.1 SEC (10.8-13.0)
[2020-10-28 21:09] LABS: Glucose, Whole Blood 241 mg/dL (60-115)
[2020-10-28] MEDS: Enoxaparin Sodium 40 MG/0.4 ML SYRINGE SUBCUT (21:27)
[2020-10-28] MEDS: cloNIDine HCL 0.1 MG TABLET PO (21:28)
[2020-10-28] MEDS: Insulin Lispro 100 UNIT/ML 3 ML VIAL SUBCUT (21:30)
--- NOTE | 2020-10-28 21:30 | P.PNIM_ITS ---
Subjective Subjective Date of Service: 10/29/20 Interval History: Seen in f/u for MSSA bacteremia, leg cellulitis with possible abscess Review of Systems No fever Right leg pain Physical Exam Vital Signs: Vital Signs: Last Vital Signs Temp 98.6 F 10/28/20 21:22 Pulse 88 10/28/20 21:28 Resp 16 10/28/20 21:22 BP 141/71 H 10/28/20 21:28 Pulse Ox 98 10/28/20 21:22 Body Mass Index 21.7 Const: General: alert and awake Nutritional Appearance: thin Orientation/consciousness: patient oriented x3 Resp: Effort & Inspection: normal respiratory effort and no respiratory distress Cardio: Rate: regular rate Rhythm: regular rhythm GI: Palpation (GI): Soft to palpation and nontender Skin: General skin exam: no rashes or lesions noted Neuro: General: patient oriented x3 Extrem: Other: Right lower extremity of the erythema, edema, warmth from foot to thigh; extreme tenderness Objective Data Current Medications Generic Name Dose Route Start Last Admin Trade Name Freq PRN Reason Stop Dose Admin Acetaminophen 650 mg 10/27/20 22:35 10/27/20 23:07 Acetaminophen 325 Mg Tablet PO 650 mg Q6H PRN Administration Pain, Mild (Pain Scale 1-3) Atovaquone 750 mg 10/27/20 21:00 10/28/20 21:27 Atovaquone 750 Mg/5 Ml Oral.Susp PO 750 mg BID TOMY Administration Bictegravir/Emtricitabine/Tenofovir 1 tab 10/28/20 09:00 10/28/20 11:08 Bictegrav/Emtricit/Tenofov Ala 1 Tab Tablet PO 1 tab DAILY TOMY Administration Clonidine HCl 0.1 mg 10/27/20 20:55 10/28/20 21:28 Clonidine Hcl 0.1 Mg Tablet PO 0.1 mg BID PRN Administration withdrawal Protocol Docusate Sodium 100 mg 10/27/20 20:25 Docusate Sodium 100 Mg Capsule PO DAILY PRN Constipation Enoxaparin Sodium 40 mg 10/27/20 20:30 10/28/20 21:27 Enoxaparin Sodium 40 Mg/0.4 Ml Syringe SUBCUT 40 mg Q24H TOMY Administration Fluconazole 200 mg 10/28/20 09:00 10/28/20 11:08 Fluconazole 100 Mg Tablet PO 200 mg DAILY TOMY Administration Fluticasone Propionate 1 puff 10/28/20 08:00 10/28/20 07:46 Fluticasone Propionate 100 Mcg Blst.W.Dev INHALE Not Given RBID [facility] Nafcillin Sodium 2 gm/ Sodium 100 mls @ 200 mls/hr 10/27/20 20:30 10/28/20 20:18 Chloride IV Infused Q4H [facility] Infusion Insulin Glargine 18 unit 10/27/20 21:00 10/28/20 10:42 Insulin Glargine,Hum.Rec.Anlog 100 Unit/Ml 10 Ml Vial SUBCUT 18 unit BID [facility] Administration Insulin Human Lispro 0 unit 10/27/20 21:00 10/28/20 17:35 Insulin Lispro 100 Unit/Ml 3 Ml Vial SUBCUT Not Given QIDACHS [facility] Protocol Morphine Sulfate 1 mg 10/27/20 22:35 Morphine Sulfate 2 Mg/Ml Cartridge IVPUSH Q4H PRN Pain, Severe (Pain Scale 7-10) Pharmacy Consult 1 each 10/27/20 18:35 Consult Rx Perform Med Rec MISCELLANE ONCE PRN Consult order Sodium Chloride 3 ml 10/28/20 00:00 10/28/20 17:06 0.9 % Sodium Chloride Flush 3 Ml Syringe IVFLUSH Not Given QSHIFT [facility] Labs CBC & Chem 7: 10/29/20 06:17 10/29/20 06:17 Microbiology Microbiology Results: Microbiology 10/27/20 18:52 Blood - Venous Blood Culture - Preliminary No growth after 24 hours. 10/27/20 18:33 Blood - Venous Blood Culture - Preliminary No growth after 24 hours. 10/27/20 19:02 Urine clean catch - Clean Catch Midstream Urine Culture - Preliminary Gram negative roxi Assessment and Plan (1) AIDS: Problem details: Last CD4 count 54 Status: Acute (2) Bacteremia: Problem details: Vancomycin Status: Acute (3) Sepsis: Status: Acute (4) Thrush, oral: Status: Acute (5) Cellulitis: Status: Acute Assessment and Plan: 55-year-old male with history of HIV/aids, hepatitis C virus, diabetes, recent admission for RLE cellulitis/MSSA bacteremia (left AMA 10/24/20) returns with ongoing pain and swelling of the right leg Sepsis Bacteremia BCx from 10/21 growing MSSA RLE cellulitis and possible abscess collection sepsis focused exam completed with no evidence of endocarditis fluid collection seen on US from 10/21 - repeat US pending echo from 10/24 -reconsult ID -resume IV nafcillin -general surgery consult -follow-up repeat ultrasound -follow-up repeat blood cultures -pain control -MRI -Morphine for pain Diabetes, uncontrolled -home dose of Lantus -SSI, POC Hypomagnesemia Replaced in the ED -repeat in a.m. Opiate abuse -clonidine prn -addiction medicine consult HIV/aids -resume Biktarvy -Diflucan -Mepron Thrombocytopenia Chronic. Follow CBC Anemia Chronic. At baseline Follow CBC DVT prophylaxis-Lovenox Code status-full code This case was discussed with Dr. Concepcion
[2020-10-29] VITALS: BP 128/69; PULSE 93; RESP 16; TEMP 37.1; O2SAT 97
[2020-10-29] MEDS: Nafcillin Sodium 2 GM in 0.9 % Sodium Chloride 100 ML IV ×6 (00:33→20:46)
[2020-10-29] MEDS: 0.9 % Sodium Chloride Flush 3 ML SYRINGE IVFLUSH ×4 (00:34→20:48)
[2020-10-29 03:08] LABS: Glucose, Whole Blood 155 mg/dL (60-115)
[2020-10-29 07:00] LABS: Hematocrit 29.3 % (42-52); Mean Corpuscular HGB Conc 34.1 g/dl (31.0-36.0); Mean Corpuscular Hemoglobin 28.4 pg (27.0-33.0); Mean Corpuscular Volume 83.2 fL (80-98); Mean Platelet Volume 9.9 fL (9.4-12.4); Red Blood Count 3.52 X10*6/uL (4.60-5.80); Red Cell Distribution Width 13.8 % (11.0-16.0); White Blood Count 7.1 X10*3/uL (4.8-10.8)
[2020-10-29 07:18] LABS: Anion Gap 6 (12-20); Blood Urea Nitrogen 11 mg/dL (9-16); Calcium 7.3 mg/dL (8.4-10.2); Carbon Dioxide 32 mmol/L (22-29); Chloride 97 mmol/L (96-108); Creatinine Clr Calc Pharmacy 103.7; Estimated Glomerular Filt Rate > 60; Glucose Random 218 mg/dL (60-115); Sodium 132 mmol/L (135-145)
[2020-10-29 07:26] VITALS: BP 135/69; PULSE 86; RESP 18; TEMP 36.6; O2SAT 96
[2020-10-29 07:33] LABS: Glucose, Whole Blood 197 mg/dL (60-115)
[2020-10-29] MEDS: Fluconazole 100 MG TABLET 200 MG PO (09:17)
[2020-10-29] MEDS: Insulin Glargine,Hum.rec.anlog 100 UNIT/ML 10 ML VIAL 18 UNIT SUBCUT ×2 (09:19→20:47)
--- NOTE | 2020-10-29 09:22 | MHC.CM.PN ---
CASE MANAGEMENT MET WITH PATIENT, WHO VERIFIES HIS DEMOGRAPHIC INFORMATION. WHEN ASKED IF HE HAS A PCP, HE AGREES, BUT STATES THAT HE FORGETS THE NAME. HE VISITS [facility] FOR HIS PRIMARY CARE NEEDS, BUT HAS NOT BEEN IN A WHILE NOW IF PATIENT IS STILL INPATIENT DURING THE WEEK, CASE MANAGEMENT CAN VERIFY THE INFORMATION AND PROVIDE UPDATES. PATIENT SIGNED HIS IMM, AND VERBALIZES COMPREHENSION OF HIS RIGHTS UNDER MEDICARE. WHEN ASKED IF HE WAS WILLING TO ASSIGN HIS SISTER A HCP AGENT, HE STATES THAT SHE HAS . WHEN ASKED IF HE HAS ANOTHER CONTACT IN HIS LIFE THAT HE FEELS HE TRUSTS FOR HIS HEALTHCARE DECISIONS, HE DENIES. HE IS AWARE THAT CASE MANAGEMENT IS AVAILABLE IF HE WOULD LIKE TO ASSIGN A HCP AGENT. IMM 10/29 IN CHART.
[2020-10-29] MEDS: Insulin Lispro 100 UNIT/ML 3 ML VIAL SUBCUT ×4 (09:23→20:47)
--- NOTE | 2020-10-29 10:19 | HO.PM.IMPN ---
Subjective Subjective Date of Service: 10/29/20 Interval History: Seen in f/u for MSSA bacteremia, leg cellulitis ad abscess, s/p drainage yesterday by IR. Still has excrutiating pain. Gram stain is growing staph aureues also Review of Systems No fever Right leg pain Physical Exam Vital Signs: Vital Signs: Last Vital Signs Temp 97.9 F 10/29/20 07:26 Pulse 86 10/29/20 07:26 Resp 18 10/29/20 07:26 BP 135/69 10/29/20 07:26 Pulse Ox 96 10/29/20 07:26 Body Mass Index 21.7 Const: General: alert and awake Nutritional Appearance: thin Orientation/consciousness: patient oriented x3 Resp: Effort & Inspection: normal respiratory effort and no respiratory distress Cardio: Rate: regular rate Rhythm: regular rhythm GI: Palpation (GI): Soft to palpation and nontender Skin: General skin exam: no rashes or lesions noted Neuro: General: patient oriented x3 Extrem: Other: Right lower extremity of the erythema, edema, warmth from foot to thigh; extreme tenderness, o sings of cyanosis Objective Data Current Medications Generic Name Dose Route Start Last Admin Trade Name Freq PRN Reason Stop Dose Admin Acetaminophen 650 mg 10/27/20 22:35 10/27/20 23:07 Acetaminophen 325 Mg Tablet PO 650 mg Q6H PRN Administration Pain, Mild (Pain Scale 1-3) Atovaquone 750 mg 10/27/20 21:00 10/29/20 09:33 Atovaquone 750 Mg/5 Ml Oral.Susp PO Not Given BID TOMY Bictegravir/Emtricitabine/Tenofovir 1 tab 10/28/20 09:00 10/29/20 09:17 Bictegrav/Emtricit/Tenofov Ala 1 Tab Tablet PO 1 tab DAILY TOMY Administration Clonidine HCl 0.1 mg 10/27/20 20:55 10/28/20 21:28 Clonidine Hcl 0.1 Mg Tablet PO 0.1 mg BID PRN Administration withdrawal Protocol Docusate Sodium 100 mg 10/27/20 20:25 Docusate Sodium 100 Mg Capsule PO DAILY PRN Constipation Enoxaparin Sodium 40 mg 10/27/20 20:30 10/28/20 21:27 Enoxaparin Sodium 40 Mg/0.4 Ml Syringe SUBCUT 40 mg Q24H TOMY Administration Fluconazole 200 mg 10/28/20 09:00 10/29/20 09:17 Fluconazole 100 Mg Tablet PO 200 mg DAILY TOMY Administration Fluticasone Propionate 1 puff 10/28/20 08:00 10/29/20 09:33 Fluticasone Propionate 100 Mcg Blst.W.Dev INHALE Not Given RBID [facility] Nafcillin Sodium 2 gm/ Sodium 100 mls @ 200 mls/hr 10/27/20 20:30 10/29/20 09:22 Chloride IV 200 mls/hr Q4H TOMY Administration Insulin Glargine 18 unit 10/27/20 21:00 10/29/20 09:19 Insulin Glargine,Hum.Rec.Anlog 100 Unit/Ml 10 Ml Vial SUBCUT 18 unit BID TOMY Administration Insulin Human Lispro 0 unit 10/27/20 21:00 10/29/20 09:23 Insulin Lispro 100 Unit/Ml 3 Ml Vial SUBCUT 2 unit QIDACHS [facility] Administration Protocol Morphine Sulfate 1 mg 10/27/20 22:35 Morphine Sulfate 2 Mg/Ml Cartridge IVPUSH Q4H PRN Pain, Severe (Pain Scale 7-10) Pharmacy Consult 1 each 10/27/20 18:35 Consult Rx Perform Med Rec MISCELLANE ONCE PRN Consult order Sodium Chloride 3 ml 10/28/20 00:00 10/29/20 09:23 0.9 % Sodium Chloride Flush 3 Ml Syringe IVFLUSH 3 ml QSHIFT [facility] Administration Labs CBC & Chem 7: 10/29/20 06:17 10/29/20 06:17 Microbiology Microbiology Results: Microbiology 10/28/20 16:55 Leg - Right Gram Stain - Final 10/28/20 16:55 Leg - Right Routine Culture - Preliminary Staphylococcus aureus 10/27/20 19:02 Urine clean catch - Clean Catch Midstream Urine Culture - Final Klebsiella pneumoniae 10/27/20 18:52 Blood - Venous Blood Culture - Preliminary No growth after 24 hours. 10/27/20 18:33 Blood - Venous Blood Culture - Preliminary No growth after 24 hours. Assessment and Plan (1) AIDS: Problem details: Last CD4 count 54 Status: Acute (2) Bacteremia: Problem details: Vancomycin Status: Acute (3) Sepsis: Status: Acute (4) Thrush, oral: Status: Acute (5) Cellulitis: Status: Acute Assessment and Plan: 55-year-old male with history of HIV/aids, hepatitis C virus, diabetes, recent admission for RLE cellulitis/MSSA bacteremia (left AMA 10/24/20) returns with ongoing pain and swelling of the right leg Sepsis d/t Bacteremia BCx from 10/21 growing MSSA, BCx from 10/27 No growth. Abscess gram stain from 10/28 Staph Aurues RLE cellulitis and possible abscess collection Echo 10/24 no vegetation fluid collection seen on US from 10/21 echo from 10/24 -reconsult ID -Continue IV nafcillin -follow-up repeat blood cultures -pain control Abscsess of right leg related to above bacteremia -Same treatment as above -Surgery following and will ask for need for operation Diabetes, uncontrolled -home dose of Lantus -SSI, POC Hypomagnesemia Replaced in the ED -repeat in a.m. Opiate abuse -clonidine prn -addiction medicine consult HIV/aids -resume Biktarvy -Diflucan -Mepron Thrombocytopenia Chronic. Follow CBC Hypokalemia--3.0 replace with PO K Anemia Chronic. At baseline Follow CBC DVT prophylaxis-Lovenox Code status-full code This case was discussed with Dr. Concepcion
[2020-10-29 11:20] LABS: Glucose, Whole Blood 389 mg/dL (60-115)
--- NOTE | 2020-10-29 12:35 | PM.EVENT ---
Event Note Date of Service: 10/29/20 Event Note: 55 yo male who presented to the ER for rt leg cellulitis. Hx of IV drug use. IR aspirated abscess in rt calf which showed S. aureus. Ortho consulted to r/o compartment syndrome. Based off of physical exam and symptoms minimal pain with palpation of the rt lower extremity into the rt foot able to AROM and PROM ankle and toes. The rt knee has a large effusion and is extremely tender to palpation. Unable to flex the rt knee Will attempt to aspirate the rt knee and send if suspicious for infection Will continue to follow Complete consult note to follow
[2020-10-29 16:00] VITALS: BP 141/74; PULSE 83; RESP 21; TEMP 37.1; O2SAT 100
[2020-10-29 16:44] LABS: Glucose, Whole Blood 244 mg/dL (60-115)
[2020-10-29 19:00] VITALS: BP 129/76; PULSE 86; RESP 19; TEMP 37.1; O2SAT 96
[2020-10-29 20:43] LABS: Glucose, Whole Blood 263 mg/dL (60-115)
[2020-10-29] MEDS: Atovaquone 750 MG/5 ML ORAL.SUSP PO (20:46)
[2020-10-29] MEDS: Enoxaparin Sodium 40 MG/0.4 ML SYRINGE SUBCUT (20:46)
--- NOTE | 2020-10-29 22:16 | P.CNID_ITS ---
History of Present Illness Data of Consult Service Date: 10/29/20 [facility] Primary Care Provider: Unknown Physician HPI Reason for consult: right leg redness,prior bacteremia,HIV He presents again to hospital with redness right lower leg as well as fatigue and fever. He had been in hospital last week and 10/21 MSSA x2 blood cultures. He has no nausea,vomiting No one else is ill Review of Systems Constitutional: Constitutional: Denies headache(s) and Reports weakness ENT: Denies headache(s) Cardiovascular: Cardiovascular: Reports syncope Neurologic: Reports syncope, Denies headache(s), Reports memory loss and Reports weakness Psychiatric: Psychiatric: Reports memory loss PMFSH Past Medical History Medical History AIDS Anxiety Bacteremia Depression Diabetes Drug abuse Hepatitis C HIV (human immunodeficiency virus infection) HTN (hypertension) MSSA bacteremia Functional capacity: independent ambulation Family History Family History Father Alcoholism Mother Type 2 diabetes mellitus Sister No problems noted. Sister No problems noted. Brother No problems noted. Son No problems noted. Family history: reviewed and not pertinent Surgical History Surgical History History of repair of laceration Social History Social History Household Members: None Housing: Apartment Do you presently have visiting nurse or other home services: No Alcohol intake: current Alcohol intake frequency: does not drink Smoking Status: Current every day smoker Tobacco Type: Cigarette Packs Per Day: 0.5 Cigarettes Per Day: 10.0 Years Smoked: 23 Smoked in Last 30 Days: Yes Patient Interested in Nicotine Replacement: Yes Patient Given Instructions on How to Stop Smoking: Yes Date Education Initiated: 10/28/20 Second Hand Smoke Exposure: No Use of substances other than those prescribed or required for medical reasons: No Substance Use Type: Heroin Substance Use Type Other:: patient denies Substance Use Frequency: Chronic Longstanding Last Used Substance: Weeks (ago) Last Used Substance Other:: Four weeks ago Currently Displaying Signs/Symptoms of Drug Intoxication Withdrawal: No Other Past Substance Use Problem:: heroin Any prior treatment program specific to substance use: Yes Have you been hit, kicked, punched, or otherwise hurt by someone within the past year? If so, by whom?: No Do you feel safe in your current relationship?: Yes Is there a partner from a previous relationship who is making you feel unsafe now?: No Are you made to feel afraid or neglected: No Advance Directives: No Advance Directives Information Provided: No Do you have thoughts of harming others: None Do you have a plan to hurt others: No Plan Recently lost weight without trying: Yes service: No Current occupational status: unemployed Meds Allergies Allergy/AdvReac Type Severity Reaction Status Date / Time Sulfa (Sulfonamide Allergy Mild RASH Verified 10/28/20 13:00 Antibiotics) [Sulfa (Sulfonamides)] Home Medications Medication Instructions Recorded Confirmed Type xnnmzwjqc-vzolcuxf-gojeqfy ala 1 tab PO DAILY 10/21/20 10/27/20 History [Biktarvy] buprenorphine-naloxone [Suboxone] 1 strip SUBLINGUAL BID 10/21/20 10/21/20 History fluticasone propionate [Flovent 1 puff PO BID 10/21/20 10/27/20 History HFA] insulin aspart U-100 [Novolog 0 unit SUBCUT TID 10/21/20 10/27/20 History Flexpen U-100 Insulin] insulin glargine [Lantus Solostar 18 unit SUBCUT BID 10/21/20 10/27/20 History U-100 Insulin] Physical Exam Vital Signs: Vital Signs: Last Vital Signs Temp 98.8 F 10/29/20 19:00 Pulse 86 10/29/20 19:00 Resp 19 10/29/20 19:00 BP 129/76 10/29/20 19:00 Pulse Ox 96 10/29/20 19:00 Body Mass Index 21.7 Const: General: cooperative HENMT: Head: Yes normal to inspection Face and sinus: Yes dry mucous membranes Eyes: General: appearance normal, both eyes and all related structures Resp: Effort & Inspection: normal respiratory effort Cardio: Rate: regular rate Rhythm: regular rhythm GI: Palpation (GI): Soft to palpation and nontender Skin: General skin exam: no rashes or lesions noted Extrem: Other: reddened RLE erythema around ankle Assessment and Plan (1) Cellulitis of right leg: Problem details: He has probable MSSA infection He has blood cultures pending Status: Acute Continue antibiotics Await blood culture Would give po Keflex outpatient unless bacteremic (2) Abscess of muscle: Status: Acute (3) AIDS: Problem details: Last CD4 count 54 Status: Acute Needs to start Biktarvy,possible inpatient Results Labs CBC & Chem 7: 10/29/20 06:17 10/29/20 06:17 Labs: Short CBC 10/29/20 Range/Units 06:17 WBC 7.1 (4.8-10.8) X10*3/uL Hgb 10.0 L (14.0-18.0) g/dl Hct 29.3 L (42-52) % Plt Count TNP BMP 10/29/20 06:17 Sodium 132 L Potassium 3.0 L Chloride 97 Carbon Dioxide 32 H BUN 11 Creatinine 0.70 Calcium 7.3 L Microbiology Microbiology Results: Microbiology 10/27/20 18:52 Blood - Venous Blood Culture - Preliminary No growth after 48 hours. 10/27/20 18:33 Blood - Venous Blood Culture - Preliminary No growth after 48 hours. 10/28/20 16:55 Leg - Right Gram Stain - Final 10/28/20 16:55 Leg - Right Routine Culture - Preliminary Staphylococcus aureus 10/27/20 19:02 Urine clean catch - Clean Catch Midstream Urine Culture - Final Klebsiella pneumoniae
[2020-10-30 00:23] VITALS: BP 130/74; PULSE 77; RESP 16; TEMP 36.7; O2SAT 98
[2020-10-30] MEDS: Nafcillin Sodium 2 GM in 0.9 % Sodium Chloride 100 ML IV ×6 (00:24→22:33)
[2020-10-30 08:00] VITALS: BP 138/77; PULSE 83; TEMP 36.3; O2SAT 99
[2020-10-30 08:40] LABS: Glucose, Whole Blood 176 mg/dL (60-115)
[2020-10-30] MEDS: Fluconazole 100 MG TABLET 200 MG PO (08:41)
[2020-10-30] MEDS: Atovaquone 750 MG/5 ML ORAL.SUSP PO ×2 (08:41→22:33)
[2020-10-30] MEDS: 0.9 % Sodium Chloride Flush 3 ML SYRINGE IVFLUSH (08:42)
[2020-10-30] MEDS: Insulin Lispro 100 UNIT/ML 3 ML VIAL SUBCUT ×2 (08:42→12:36)
[2020-10-30] MEDS: Insulin Glargine,Hum.rec.anlog 100 UNIT/ML 10 ML VIAL 18 UNIT SUBCUT (08:43)
[2020-10-30] MEDS: Morphine Sulfate 2 MG/ML CARTRIDGE 1 MG IVPUSH ×2 (09:00→14:49)
--- NOTE | 2020-10-30 09:58 | P.CONOP_ITS ---
History of Present Illness HPI Consult date: 10/30/20 Consult reason: joint pain Chief complaint: MSSA BACTERMIA CELLULITIS COVID POSITIVE Narrative: 55 yo male presented to the ER for rt leg pain after leaving AMA a few days prior for which he was being treated for bacteremia. He has a history of IVDA, hep C and AIDS/HIV. He underwent a CT scan of the rt lower extremity which was suggestive of abscess. This was drained under IR. He continued to have significant knee pain and swelling. Orthopedics was consulted for suspicion of compartment syndrome and rt knee effusion. Review of Systems Review of Systems: Yes all other systems are reviewed and are negative PMFSH Past Medical History Medical History AIDS Anxiety Bacteremia Depression Diabetes Drug abuse Hepatitis C HIV (human immunodeficiency virus infection) HTN (hypertension) MSSA bacteremia Functional capacity: independent ambulation Family History Family History Father Alcoholism Mother Type 2 diabetes mellitus Sister No problems noted. Sister No problems noted. Brother No problems noted. Son No problems noted. Family history: reviewed and not pertinent Surgical History Surgical History History of repair of laceration Social History Social History Household Members: None Housing: Apartment Do you presently have visiting nurse or other home services: No Alcohol intake: current Alcohol intake frequency: does not drink Smoking Status: Current every day smoker Tobacco Type: Cigarette Packs Per Day: 0.5 Cigarettes Per Day: 10.0 Years Smoked: 23 Smoked in Last 30 Days: Yes Patient Interested in Nicotine Replacement: Yes Patient Given Instructions on How to Stop Smoking: Yes Date Education Initiated: 10/28/20 Second Hand Smoke Exposure: No Use of substances other than those prescribed or required for medical reasons: No Substance Use Type: Heroin Substance Use Type Other:: patient denies Substance Use Frequency: Chronic Longstanding Last Used Substance: Weeks (ago) Last Used Substance Other:: Four weeks ago Currently Displaying Signs/Symptoms of Drug Intoxication Withdrawal: No Other Past Substance Use Problem:: heroin Any prior treatment program specific to substance use: Yes Have you been hit, kicked, punched, or otherwise hurt by someone within the past year? If so, by whom?: No Do you feel safe in your current relationship?: Yes Is there a partner from a previous relationship who is making you feel unsafe now?: No Are you made to feel afraid or neglected: No Advance Directives: No Advance Directives Information Provided: No Do you have thoughts of harming others: None Do you have a plan to hurt others: No Plan Recently lost weight without trying: Yes service: No Current occupational status: unemployed Meds Allergies Allergy/AdvReac Type Severity Reaction Status Date / Time Sulfa (Sulfonamide Allergy Mild RASH Verified 10/28/20 13:00 Antibiotics) [Sulfa (Sulfonamides)] Home Medications Medication Instructions Recorded Confirmed Type legvltjnl-qdbmwuss-biikjgh ala 1 tab PO DAILY 10/21/20 10/27/20 History [Biktarvy] buprenorphine-naloxone [Suboxone] 1 strip SUBLINGUAL BID 10/21/20 10/21/20 History fluticasone propionate [Flovent 1 puff PO BID 10/21/20 10/27/20 History HFA] insulin aspart U-100 [Novolog 0 unit SUBCUT TID 10/21/20 10/27/20 History Flexpen U-100 Insulin] insulin glargine [Lantus Solostar 18 unit SUBCUT BID 10/21/20 10/27/20 History U-100 Insulin] Physical Exam Vital Signs: Vital Signs: Last Vital Signs Temp 97.4 F 10/30/20 08:00 Pulse 83 10/30/20 08:00 Resp 16 10/30/20 00:23 BP 138/77 10/30/20 08:00 Pulse Ox 99 10/30/20 08:00 Body Mass Index 21.7 Extrem: Other: Rt knee large effusion with extreme tenderness to palpation. Pt unable to flex knee. Patient is able to AROM and PROM the ankle and toes without significant pain. Pedal pulse present. Results Labs Result Diagrams: 10/29/20 06:17 10/29/20 06:17 Labs: Abnormal lab results 10/29/20 10/29/20 10/29/20 Range/Units 11:15 16:38 20:38 POC Glucose 389 H* 244 H 263 H (60-115) mg/dL 10/30/20 Range/Units 08:14 POC Glucose 176 H (60-115) mg/dL H & H 10/27/20 10/28/20 10/29/20 Range/Units 18:32 05:49 06:17 Hgb 10.7 L 9.5 L 10.0 L (14.0-18.0) g/dl Hct 31.0 L 27.3 L 29.3 L (42-52) % Coagulation 10/28/20 Range/Units 20:20 INR 1.7 H (0.9-1.1) All other labs normal. Assessment and Plan (1) Septic arthritis of knee, right: Status: Acute Pt. was seen with director federal Tiesha and explained that we would drain the rt knee in which he gave verbal consent. We discussed the risks, benefits, and alternatives. He agreed to proceed. 40cc of purulent joint fluid was drained from the knee. Given this result it is best for him to undergo arthroscopic irrigation of the rt knee. Joint fluid will be sent for analysis. Case was discussed with Dr. Aceves. Pt. to be NPO after midnight. Procedures Joint Aspiration/Injection Joint Asp./Inject. 1: Side of body: right Joint Aspirated/Injected: knee (rt) Skin prep: Povidone-Iodine1% Needle size used: 18G Fluid obtained: purulent Total fluid obtained (ml): 40 Patient tolerated procedure: no complications Additional comments: Fluid sent for analysis
[2020-10-30] MEDS: Acetaminophen 325 MG TABLET 650 MG PO (10:12)
--- NOTE | 2020-10-30 11:20 | P.PNIM_ITS ---
Subjective Subjective Date of Service: 10/30/20 Interval History: Seen in f/u for MSSA bacteremia, leg cellulitis ad abscess, s/p drainage yesterday by IR. Still has excrutiating pain. Gram stain is growing staph aureues also. Knee aspiration this morning by ortho yielded pus and will be going to OR Review of Systems No fever Right leg pain and knee pain Physical Exam Vital Signs: Vital Signs: Last Vital Signs Temp 97.4 F 10/30/20 08:00 Pulse 83 10/30/20 08:00 Resp 16 10/30/20 00:23 BP 138/77 10/30/20 08:00 Pulse Ox 99 10/30/20 08:00 Body Mass Index 21.7 Const: General: alert and awake Nutritional Appearance: thin Orientation/consciousness: patient oriented x3 Resp: Effort & Inspection: normal respiratory effort and no respiratory distress Cardio: Rate: regular rate Rhythm: regular rhythm GI: Palpation (GI): Soft to palpation and nontender Skin: General skin exam: no rashes or lesions noted Neuro: General: patient oriented x3 Extrem: Other: Right lower extremity of the erythema, including the knee edema, warmth from foot to thigh; extreme tenderness, o sings of cyanosis Objective Data Current Medications Generic Name Dose Route Start Last Admin Trade Name Freq PRN Reason Stop Dose Admin Acetaminophen 650 mg 10/27/20 22:35 10/30/20 10:12 Acetaminophen 325 Mg Tablet PO 650 mg Q6H PRN Administration Pain, Mild (Pain Scale 1-3) Atovaquone 750 mg 10/27/20 21:00 10/30/20 08:41 Atovaquone 750 Mg/5 Ml Oral.Susp PO 750 mg BID TOMY Administration Bictegravir/Emtricitabine/Tenofovir 1 tab 10/28/20 09:00 10/30/20 08:41 Bictegrav/Emtricit/Tenofov Ala 1 Tab Tablet PO 1 tab DAILY TOMY Administration Clonidine HCl 0.1 mg 10/27/20 20:55 10/28/20 21:28 Clonidine Hcl 0.1 Mg Tablet PO 0.1 mg BID PRN Administration withdrawal Protocol Docusate Sodium 100 mg 10/27/20 20:25 Docusate Sodium 100 Mg Capsule PO DAILY PRN Constipation Enoxaparin Sodium 40 mg 10/27/20 20:30 10/29/20 20:46 Enoxaparin Sodium 40 Mg/0.4 Ml Syringe SUBCUT 40 mg Q24H TOMY Administration Fluconazole 200 mg 10/28/20 09:00 10/30/20 08:41 Fluconazole 100 Mg Tablet PO 200 mg DAILY TOMY Administration Fluticasone Propionate 1 puff 10/28/20 08:00 10/30/20 09:03 Fluticasone Propionate 100 Mcg Blst.W.Dev INHALE Not Given RBID [facility] Nafcillin Sodium 2 gm/ Sodium 100 mls @ 200 mls/hr 10/27/20 20:30 10/30/20 10:09 Chloride IV Infused Q4H [facility] Infusion Insulin Glargine 18 unit 10/27/20 21:00 10/30/20 08:43 Insulin Glargine,Hum.Rec.Anlog 100 Unit/Ml 10 Ml Vial SUBCUT 18 unit BID [facility] Administration Insulin Human Lispro 0 unit 10/27/20 21:00 10/30/20 08:42 Insulin Lispro 100 Unit/Ml 3 Ml Vial SUBCUT 2 unit QIDACHS [facility] Administration Protocol Morphine Sulfate 1 mg 10/27/20 22:35 10/30/20 09:00 Morphine Sulfate 2 Mg/Ml Cartridge IVPUSH 1 mg Q4H PRN Administration Pain, Severe (Pain Scale 7-10) Pharmacy Consult 1 each 10/27/20 18:35 Consult Rx Perform Med Rec MISCELLANE ONCE PRN Consult order Sodium Chloride 3 ml 10/28/20 00:00 10/30/20 08:42 0.9 % Sodium Chloride Flush 3 Ml Syringe IVFLUSH 3 ml QSHIFT [facility] Administration Labs CBC & Chem 7: 10/29/20 06:17 10/29/20 06:17 Microbiology Microbiology Results: Microbiology 10/28/20 16:55 Leg - Right Gram Stain - Final 10/28/20 16:55 Leg - Right Routine Culture - Final Staphylococcus aureus 10/27/20 18:52 Blood - Venous Blood Culture - Preliminary No growth after 48 hours. 10/27/20 18:33 Blood - Venous Blood Culture - Preliminary No growth after 48 hours. 10/27/20 19:02 Urine clean catch - Clean Catch Midstream Urine Culture - Final Klebsiella pneumoniae Assessment and Plan (1) AIDS: Problem details: Last CD4 count 54 Status: Acute (2) Bacteremia: Problem details: Vancomycin Status: Acute (3) Sepsis: Status: Acute (4) Thrush, oral: Status: Acute (5) Cellulitis: Status: Acute Assessment and Plan: 55-year-old male with history of HIV/aids, hepatitis C virus, diabetes, recent admission for RLE cellulitis/MSSA bacteremia (left AMA 10/24/20) returns with ongoing pain and swelling of the right leg Sepsis d/t Bacteremia BCx from 10/21 growing MSSA, BCx from 10/27 No growth. Abscess gram stain from 10/28 Staph Aurues RLE cellulitis and possible abscess collection Echo 10/24 no vegetation fluid collection seen on US from 10/21 echo from 10/24 no vegetation -Continue IV nafcillin, PO Keflex if no bacteremia -follow-up repeat blood cultures -pain control Abscsess of right s/p IR drainage of leg on 10/28 Spetic Knee--to OR for further drainage and washout Diabetes, better controll -continue Lantus and SSI Hypomagnesemia Replaced in the ED -repeat in a.m. Opiate abuse -clonidine prn -addiction medicine consult HIV/aids -resume Biktarvy -Diflucan -Mepron Thrombocytopenia Chronic. Follow CBC Hypokalemia--3.0 replace with PO K Anemia Chronic. At baseline Follow CBC DVT prophylaxis-Lovenox Code status-full code
[2020-10-30 12:31] LABS: Glucose, Whole Blood 212 mg/dL (60-115)
[2020-10-30 15:28] VITALS: BP 140/71; PULSE 63; TEMP 37.2; O2SAT 99
[2020-10-30 16:28] LABS: Glucose, Whole Blood 78 mg/dL (60-115)
[2020-10-30 21:03] LABS: Glucose, Whole Blood 108 mg/dL (60-115)
[2020-10-30] MEDS: Enoxaparin Sodium 40 MG/0.4 ML SYRINGE SUBCUT (22:33)
[2020-10-30 23:47] VITALS: BP 132/72; PULSE 74; RESP 12; TEMP 36.8; O2SAT 98
[2020-10-31] MEDS: 0.9 % Sodium Chloride Flush 3 ML SYRINGE IVFLUSH ×3 (00:50→16:11)
[2020-10-31] MEDS: Nafcillin Sodium 2 GM in 0.9 % Sodium Chloride 100 ML IV ×6 (02:27→21:20)
[2020-10-31 07:12] VITALS: BP 132/71; PULSE 57; RESP 19; TEMP 37.1; O2SAT 99
[2020-10-31] MEDS: Fluconazole 100 MG TABLET 200 MG PO (07:45)
[2020-10-31] MEDS: Atovaquone 750 MG/5 ML ORAL.SUSP PO ×2 (07:45→21:07)
--- NOTE | 2020-10-31 08:04 | MHC.SHP ---
Pre-Procedural Eval Section A The patient is an INPATIENT: Yes Section B Chief Complaint: MSSA BACTERMIA CELLULITIS COVID POSITIVE Allergies: Allergies Allergy/AdvReac Type Severity Reaction Status Date / Time Sulfa (Sulfonamide Allergy Mild RASH Verified 10/28/20 13:00 Antibiotics) [Sulfa (Sulfonamides)] Plan I have reviewed the history and physical and performed a pertinent physical examination on my patient. No changes have occurred unless specified.
[2020-10-31 08:12] LABS: Glucose, Whole Blood 84 mg/dL (60-115)
--- NOTE | 2020-10-31 08:21 | P.CDIC_ITS ---
CDI Concurrent Query Service Date: 11/02/20 Documentation Clarification: Please clarify if you are treating a proba ble/suspected/likely or confirmed: Mild Protein Calorie Malnutrition Moderate Protein Calorie Malnutrition Severe Protein Calorie Malnutrition Provider Response: Moderate Protein-Calorie Malnutrition PLEASE DO NOT DELETE/MODIFY EXISTING CONTENT Additional information is needed in order to code to the highest accuracy and appropriate Severity of Illness (SOI). Please clarify the information noted below in your progress notes and discharge summary. Risk Factors/Clinical Indicators/Treatments 55 year old male admitted with Sepsis, HIV, Bacteremia, Oral Thrush, Acute Cellulitis RLE, DM, uncontrolled, Hypomagnesium, Opiate Abuse, Thrombocytopenia, Chronic Anemia, Abscess of Muscle. Per ED note: cachectic with temporal wasting. No Nutritional Assessment in EMR HT. 5'7, WT. 63 kg, BMI 21.8 Total Protein 7.1 Albumin 2.4 CDS: Velma Marquez RN Contact Number: [phone] Please Review the information above and exercise your independent professional judgment in responding to the query. If you concur, pleas document in the PROGRESS NOTES and DISCHARGE SUMMARY. If you do not agree with the query, please document in the query above. THIS QUERY IS PART OF THE PERMANENT MEDICAL RECORD
[2020-10-31 09:14] LABS: Mean Corpuscular HGB Conc 34.5 g/dl (31.0-36.0); Mean Corpuscular Hemoglobin 28.4 pg (27.0-33.0); Mean Corpuscular Volume 82.4 fL (80-98); Platelet Count 140 X10*3/uL (160-400); Red Blood Count 3.52 X10*6/uL (4.60-5.80); Red Cell Distribution Width 14.3 % (11.0-16.0); White Blood Count 7.4 X10*3/uL (4.8-10.8)
[2020-10-31 09:45] LABS: Anion Gap 9 (12-20); Blood Urea Nitrogen 10 mg/dL (9-16); Calcium 7.4 mg/dL (8.4-10.2); Carbon Dioxide 29 mmol/L (22-29); Chloride 98 mmol/L (96-108); Estimated Glomerular Filt Rate > 60; Glucose Random 85 mg/dL (60-115); Potassium 2.4 mmol/l (3.3-5.1); Sodium 134 mmol/L (135-145)
--- NOTE | 2020-10-31 10:00 | PC.NURSE ---
Patient transported to [facility] in bed for scheduled knee arthroscopy. As soon as patient arrived the floor RN Lizett called to report critical lab value, Potassium of 2.3 and that she was informing hospitalist of said results who would be ordering IV K replacement. Dr Amber Sage Texted and made decision to send patient back to floor to receive replacement, not proceeding with surgery until K optimized. Situation explained to patient, floor RN informed of plan and patient then transported back to floor in bed
[2020-10-31] MEDS: Potassium Chloride/H20 10 MEQ/100 ML PIGGYBACK 100 MEQ IV ×2 (10:20→11:12)
[2020-10-31] MEDS: Potassium Chloride Packet 20 MEQ PACKET 40 MEQ PO ×2 (11:07→21:07)
[2020-10-31 11:28] VITALS: BP 128/76; PULSE 81; RESP 18; TEMP 37.2; O2SAT 100
[2020-10-31 12:04] LABS: Glucose, Whole Blood 106 mg/dL (60-115)
[2020-10-31 14:39] LABS: Anion Gap 8 (12-20); Carbon Dioxide 29 mmol/L (22-29); Chloride 99 mmol/L (96-108); Potassium 3.1 mmol/l (3.3-5.1); Sodium 133 mmol/L (135-145)
[2020-10-31 14:48] LABS: Absolute CD3 Count 406 cells/uL (840-3060); Absolute CD4 Count 57 cells/uL (490-1740); Absolute CD8 Count 351 cells/uL (180-1170); Absolute Lymphocytes 443 cells/uL (850-3900); CD4 CD8 Ratio 0.16 (0.86-5.00); Percent CD3 Cells 91 % (57-85); Percent CD4 Cells 13 % (30-61); Percent CD8 Cells 79 % (12-42)
--- NOTE | 2020-10-31 15:13 | MHC.CM.PN ---
nurse child care giver note electronic medical reviewed, patient was going for a scheduled knee arthroscopy however when he went to [facility] stay surgery , am labs noted potassium to be 2.3 patient was sent back [facility] FOR IV POTASSIUM REPACEMENT 2BAGS. NOT PROCEEDING WITH SURGERY UNTIL POTASSIUM IS OPTIMIZED CONTINUE RO FOLLOW ALL LABS , PAIN MANAGEMNT
[2020-10-31 15:33] VITALS: BP 134/73; PULSE 67; RESP 16; TEMP 36.8; O2SAT 99
[2020-10-31 16:24] LABS: Glucose, Whole Blood 70 mg/dL (60-115)
[2020-10-31 17:08] LABS: Glucose, Whole Blood 176 mg/dL (60-115)
[2020-10-31] MEDS: Insulin Lispro 100 UNIT/ML 3 ML VIAL SUBCUT ×2 (18:09→21:09)
[2020-10-31 19:40] VITALS: BP 127/72; PULSE 87; RESP 19; TEMP 36.7; O2SAT 99
--- NOTE | 2020-10-31 19:48 | HO.ADDICT_ITS ---
History of Present Illness Date of Service: 10/31/2020 Chief Complaint: MSSA BACTERMIA CELLULITIS COVID POSITIVE Reason for Consult: opioid use disorder Requesting physician: Pérez Smith Discussed with referring provider: No Sources of Information: patient interviewed and chart reviewed HPI Narrative: Patient with OUD and AIDS currently medically admitted with stan lulitis of of his right leg. When seen by this underwriter solicitation director he was awaiting transport to OR. He denies any current withdrawal sx as his pain has been being manged well with morphine He has been on MAT several times before and verbalized desire to restart suboxone if possible prior to discharge Medical Evaluation Reviewed: Yes Review of Systems Constitutional: Reports lethargy and Reports malaise Psychiatric: Reports anxiety, Reports depression and Reports anhedonia Diagnostics Vital Signs (24Hr): Vital Signs - 24 hr 10/30/20 23:47 10/31/20 07:12 10/31/20 11:28 Temperature 98.3 F 98.8 F 98.9 F Pulse Rate 74 57 81 Respiratory Rate 12 19 18 Blood Pressure 132/72 132/71 128/76 Pulse Oximetry 98 99 100 10/31/20 15:33 10/31/20 19:40 Temperature 98.3 F 98.1 F Pulse Rate 67 87 Respiratory Rate 16 19 Blood Pressure 134/73 127/72 Pulse Oximetry 99 99 Body Mass Index 21.7 Labs Results: 10/31/20 08:51 10/31/20 13:46 Labs: Laboratory Results - last 48 hr 10/27/20 10/29/20 10/30/20 18:32 20:38 08:14 WBC RBC Hgb Hct MCV MCH MCHC RDW Plt Count MPV Absolute Nucleated RBC Nucleated RBC % (auto) Sodium Potassium Chloride Carbon Dioxide Anion Gap BUN Creatinine Estim Creat Clear Calc Estimated GFR POC Glucose 263 H 176 H Random Glucose Calcium Total Lymphocytes 443 L % CD3 Cells 91 H Absolute CD3 Count 406 L % CD4 Cells 13 L Absolute CD4 Count 57 L CD4/CD8 Ratio 0.16 L % CD8 Cells 79 H Absolute CD8 Count 351 10/30/20 10/30/20 10/30/20 12:12 16:10 20:58 WBC RBC Hgb Hct MCV MCH MCHC RDW Plt Count MPV Absolute Nucleated RBC Nucleated RBC % (auto) Sodium Potassium Chloride Carbon Dioxide Anion Gap BUN Creatinine Estim Creat Clear Calc Estimated GFR POC Glucose 212 H 78 108 Random Glucose Calcium Total Lymphocytes % CD3 Cells Absolute CD3 Count % CD4 Cells Absolute CD4 Count CD4/CD8 Ratio % CD8 Cells Absolute CD8 Count 10/31/20 10/31/20 10/31/20 07:15 08:51 08:51 WBC 7.4 RBC 3.52 L Hgb 10.0 L Hct 29.0 L MCV 82.4 MCH 28.4 MCHC 34.5 RDW 14.3 Plt Count 140 L D MPV 10.0 Absolute Nucleated RBC 0.000 Nucleated RBC % (auto) 0.0 Sodium 134 L Potassium 2.4 L* Chloride 98 Carbon Dioxide 29 Anion Gap 9 L BUN 10 Creatinine 0.60 Estim Creat Clear Calc 121.0 Estimated GFR > 60 POC Glucose 84 Random Glucose 85 D Calcium 7.4 L Total Lymphocytes % CD3 Cells Absolute CD3 Count % CD4 Cells Absolute CD4 Count CD4/CD8 Ratio % CD8 Cells Absolute CD8 Count 10/31/20 10/31/20 10/31/20 11:31 13:46 15:52 WBC RBC Hgb Hct MCV MCH MCHC RDW Plt Count MPV Absolute Nucleated RBC Nucleated RBC % (auto) Sodium 133 L Potassium 3.1 L D Chloride 99 Carbon Dioxide 29 Anion Gap 8 L BUN Creatinine Estim Creat Clear Calc Estimated GFR POC Glucose 106 70 Random Glucose Calcium Total Lymphocytes % CD3 Cells Absolute CD3 Count % CD4 Cells Absolute CD4 Count CD4/CD8 Ratio % CD8 Cells Absolute CD8 Count 10/31/20 17:02 WBC RBC Hgb Hct MCV MCH MCHC RDW Plt Count MPV Absolute Nucleated RBC Nucleated RBC % (auto) Sodium Potassium Chloride Carbon Dioxide Anion Gap BUN Creatinine Estim Creat Clear Calc Estimated GFR POC Glucose 176 H Random Glucose Calcium Total Lymphocytes % CD3 Cells Absolute CD3 Count % CD4 Cells Absolute CD4 Count CD4/CD8 Ratio % CD8 Cells Absolute CD8 Count Imaging Radiology Impressions: ITS Impressions Chest X-Ray 10/27/20 17:44 IMPRESSION: No acute intrathoracic disease Venous Duplex 10/27/20 17:58 IMPRESSION: No DVT demonstrated in either lower extremity. Significantly enlarged complex right calf fluid collection. Lower Extremity CT 10/27/20 21:06 IMPRESSION: 1. Large fluid collection in the posterior muscular compartment with rim enhancement consistent with abscess. 2. Smaller subcutaneous fluid collection at the anterior compartment. There is also generalized subcutaneous edema in the leg. Fluid Drainage 10/28/20 11:27 IMPRESSION: Successful ultrasound-guided right calf abscess drainage without immediate complications. Mental Status Exam Mental Status Exam Patient Appearance: Appropriate Patient Orientation: Person, Place, Time and Situation Level of Consciousness: Awake, Appropriate and Alert Patient Behavior: Appropriate Mood Description: Anxious Affect Description: Constricted Speech Pattern: Clear Hallucinations: None Thought Process: Goal Oriented Thought Content: positive for [place] Depressive Symptoms: Feelings of Guilt, Unhappiness, Increased Fatigue, Low Self Esteem and Loss of Energy Judgement: Fair Medications Medications Current Medications Generic Name Dose Route Start Last Admin Trade Name Freq PRN Reason Stop Dose Admin Acetaminophen 650 mg 10/27/20 22:35 10/30/20 10:12 Acetaminophen 325 Mg Tablet PO 650 mg Q6H PRN Administration Pain, Mild (Pain Scale 1-3) Atovaquone 750 mg 10/27/20 21:00 10/31/20 07:45 Atovaquone 750 Mg/5 Ml Oral.Susp PO 750 mg BID TOMY Administration Bictegravir/Emtricitabine/Tenofovir 1 tab 10/28/20 09:00 10/31/20 07:45 Bictegrav/Emtricit/Tenofov Ala 1 Tab Tablet PO 1 tab DAILY TOMY Administration Clonidine HCl 0.1 mg 10/27/20 20:55 10/28/20 21:28 Clonidine Hcl 0.1 Mg Tablet PO 0.1 mg BID PRN Administration withdrawal Protocol Docusate Sodium 100 mg 10/27/20 20:25 Docusate Sodium 100 Mg Capsule PO DAILY PRN Constipation Enoxaparin Sodium 40 mg 10/27/20 20:30 10/30/20 22:33 Enoxaparin Sodium 40 Mg/0.4 Ml Syringe SUBCUT 40 mg Q24H TOMY Administration Fluconazole 200 mg 10/28/20 09:00 10/31/20 07:45 Fluconazole 100 Mg Tablet PO 200 mg DAILY TOMY Administration Fluticasone Propionate 1 puff 10/28/20 08:00 10/31/20 09:30 Fluticasone Propionate 100 Mcg Blst.W.Dev INHALE Not Given RBID [facility] Nafcillin Sodium 2 gm/ Sodium 100 mls @ 200 mls/hr 10/27/20 20:30 10/31/20 17:46 Chloride IV Infused Q4H [facility] Infusion Insulin Glargine 20 unit 10/30/20 21:00 10/31/20 09:42 Insulin Glargine,Hum.Rec.Anlog 100 Unit/Ml 10 Ml Vial SUBCUT Not Given BID [facility] Insulin Human Lispro 0 unit 10/27/20 21:00 10/31/20 18:09 Insulin Lispro 100 Unit/Ml 3 Ml Vial SUBCUT 2 unit QIDACHS TOMY Administration Protocol Morphine Sulfate 1 mg 10/27/20 22:35 10/30/20 14:49 Morphine Sulfate 2 Mg/Ml Cartridge IVPUSH 1 mg Q4H PRN Administration Pain, Severe (Pain Scale 7-10) Pharmacy Consult 1 each 10/27/20 18:35 Consult Rx Perform Med Rec MISCELLANE ONCE PRN Consult order Potassium Chloride 40 meq 10/31/20 10:15 10/31/20 11:07 Potassium Chloride Packet 20 Meq Packet PO 40 meq BID TOMY Administration Sodium Chloride 3 ml 10/28/20 00:00 10/31/20 16:11 0.9 % Sodium Chloride Flush 3 Ml Syringe IVFLUSH 3 ml QSHIFT TOMY Administration Allergies Allergies Allergy/AdvReac Type Severity Reaction Status Date / Time Sulfa (Sulfonamide Allergy Mild RASH Verified 10/28/20 13:00 Antibiotics) [Sulfa (Sulfonamides)] Assessment & Plan Assessment & Plan (1) Opioid use disorder: Status: Acute Code(s): F11.99 - Opioid use, unspecified with unspecified opioid-induced disorder Recommendations: Patient to have ortho procedure, unsure what post op pain management requirement will be Recovery support RN to continue following patient and assess readiness/appropriateness for MAT Greater than 50% of the session was spent on counseling and/or coordination of care PMFSH Past Medical History Medical History AIDS Anxiety Bacteremia Depression Diabetes Drug abuse Hepatitis C HIV (human immunodeficiency virus infection) HTN (hypertension) MSSA bacteremia Family History Family History Father Alcoholism Mother Type 2 diabetes mellitus Sister No problems noted. Sister No problems noted. Brother No problems noted. Son No problems noted. Family history: reviewed and not pertinent Surgical History Surgical History History of repair of laceration Social History Social History Household Members: None Housing: Apartment Do you presently have visiting nurse or other home services: No Alcohol intake: current Alcohol intake frequency: does not drink Smoking Status: Current every day smoker Tobacco Type: Cigarette Packs Per Day: 0.5 Cigarettes Per Day: 10.0 Years Smoked: 23 Smoked in Last 30 Days: Yes Patient Interested in Nicotine Replacement: Yes Patient Given Instructions on How to Stop Smoking: Yes Date Education Initiated: 10/28/20 Second Hand Smoke Exposure: No Use of substances other than those prescribed or required for medical reasons: No Substance Use Type: Heroin Substance Use Type Other:: patient denies Substance Use Frequency: Chronic Longstanding Last Used Substance: Weeks (ago) Last Used Substance Other:: Four weeks ago Currently Displaying Signs/Symptoms of Drug Intoxication Withdrawal: No Other Past Substance Use Problem:: heroin Any prior treatment program specific to substance use: Yes Have you been hit, kicked, punched, or otherwise hurt by someone within the past year? If so, by whom?: No Do you feel safe in your current relationship?: Yes Is there a partner from a previous relationship who is making you feel unsafe now?: No Are you made to feel afraid or neglected: No Advance Directives: No Advance Directives Information Provided: No Do you have thoughts of harming others: Constant Do you have a plan to hurt others: No Plan Recently lost weight without trying: Yes service: No Current occupational status: unemployed
[2020-10-31 20:59] LABS: Glucose, Whole Blood 201 mg/dL (60-115)
[2020-10-31] MEDS: Enoxaparin Sodium 40 MG/0.4 ML SYRINGE SUBCUT (21:07)
[2020-10-31] MEDS: Insulin Glargine,Hum.rec.anlog 100 UNIT/ML 10 ML VIAL 20 UNIT SUBCUT (21:10)
[2020-10-31 23:32] VITALS: BP 131/75; PULSE 82; RESP 19; TEMP 36.8; O2SAT 100
[2020-11-01] MEDS: 0.9 % Sodium Chloride Flush 3 ML SYRINGE IVFLUSH ×4 (00:26→21:09)
[2020-11-01] MEDS: Nafcillin Sodium 2 GM in 0.9 % Sodium Chloride 100 ML IV ×6 (00:26→21:08)
[2020-11-01 03:11] VITALS: BP 129/68; PULSE 72; RESP 19; TEMP 36.7; O2SAT 98
[2020-11-01 07:13] VITALS: BP 124/73; PULSE 70; RESP 18; TEMP 36.6; O2SAT 99
[2020-11-01 07:21] LABS: Anion Gap 12 (12-20); Blood Urea Nitrogen 13 mg/dL (9-16); Calcium 7.3 mg/dL (8.4-10.2); Carbon Dioxide 25 mmol/L (22-29); Chloride 100 mmol/L (96-108); Creatinine Clr Calc Pharmacy 108.3; Estimated Glomerular Filt Rate > 60; Glucose Random 71 mg/dL (60-115); Potassium 2.7 mmol/l (3.3-5.1); Sodium 134 mmol/L (135-145)
[2020-11-01] MEDS: Fluticasone Propionate 100 MCG BLST.W.DEV 1 PUFF INHALE (07:25)
[2020-11-01 08:05] LABS: Glucose, Whole Blood 88 mg/dL (60-115)
[2020-11-01] MEDS: Potassium Chloride Packet 20 MEQ PACKET 40 MEQ PO ×2 (08:21→21:08)
[2020-11-01] MEDS: Fluconazole 100 MG TABLET 200 MG PO (08:22)
[2020-11-01] MEDS: Atovaquone 750 MG/5 ML ORAL.SUSP PO ×2 (08:22→21:08)
[2020-11-01] MEDS: Potassium Chloride/H20 10 MEQ/100 ML PIGGYBACK 100 MEQ IV ×2 (08:26→09:35)
[2020-11-01 11:21] VITALS: BP 123/76; PULSE 81; RESP 18; TEMP 36.6; O2SAT 99
[2020-11-01 12:08] LABS: Glucose, Whole Blood 173 mg/dL (60-115)
[2020-11-01] MEDS: Insulin Lispro 100 UNIT/ML 3 ML VIAL SUBCUT ×3 (12:50→21:09)
[2020-11-01 15:19] VITALS: BP 131/76; PULSE 87; RESP 18; TEMP 37.2; O2SAT 97
[2020-11-01 16:25] LABS: Glucose, Whole Blood 254 mg/dL (60-115)
[2020-11-01 19:12] VITALS: BP 126/74; PULSE 93; RESP 17; TEMP 36.8; O2SAT 98
[2020-11-01 20:44] LABS: Glucose, Whole Blood 188 mg/dL (60-115)
[2020-11-01] MEDS: Enoxaparin Sodium 40 MG/0.4 ML SYRINGE SUBCUT (21:08)
[2020-11-01] MEDS: Insulin Glargine,Hum.rec.anlog 100 UNIT/ML 10 ML VIAL 20 UNIT SUBCUT (21:09)
[2020-11-02] VITALS (11 sets, daily range): BP systolic 123–137; BP diastolic 74–86; PULSE 71–90; RESP 16–30; TEMP 36.5–37.6; O2SAT 97–100
[2020-11-02] MEDS: Nafcillin Sodium 2 GM in 0.9 % Sodium Chloride 100 ML IV ×5 (00:01→20:54)
[2020-11-02 07:14] LABS: Glucose, Whole Blood 93 mg/dL (60-115)
[2020-11-02] MEDS: Fluconazole 100 MG TABLET 200 MG PO (08:05)
[2020-11-02] MEDS: Potassium Chloride Packet 20 MEQ PACKET 40 MEQ PO (08:06)
[2020-11-02] MEDS: Fluticasone Propionate 100 MCG BLST.W.DEV 1 PUFF INHALE (08:13)
[2020-11-02] MEDS: 0.9 % Sodium Chloride Flush 3 ML SYRINGE IVFLUSH ×5 (08:16→20:56)
[2020-11-02] MEDS: Atovaquone 750 MG/5 ML ORAL.SUSP PO ×2 (08:16→20:54)
[2020-11-02 10:05] LABS: Anion Gap 10 (12-20); Carbon Dioxide 25 mmol/L (22-29); Chloride 101 mmol/L (96-108); Potassium 3.5 mmol/l (3.3-5.1); Sodium 132 mmol/L (135-145)
--- NOTE | 2020-11-02 10:41 | HO.ANESPROP2 ---
HPI - Anesthesia Eval Consult details Narrative: 55yo male patient here for arthroscopic debridement of right knee PMFSH Past Medical History Medical History (Updated 11/02/20 @ 11:37 by Kenyetta Clark) Acute hyperglycemia Acute renal failure AIDS Anxiety Bacteremia Cellulitis of right leg Depression Diabetes Drug abuse Hepatitis C HIV (human immunodeficiency virus infection) HTN (hypertension) MSSA bacteremia Opiate abuse, continuous Septic arthritis of knee, right Functional capacity: independent ambulation Family History Family History Father Alcoholism Mother Type 2 diabetes mellitus Sister No problems noted. Sister No problems noted. Brother No problems noted. Son No problems noted. Family history of problems with anesthesia: No Surgical History Surgical History History of repair of laceration History of Problems with Anesthesia: No Social History Social History Household Members: None Housing: Apartment Do you presently have visiting nurse or other home services: No Alcohol intake: current Alcohol intake frequency: does not drink Smoking Status: Current every day smoker Tobacco Type: Cigarette Packs Per Day: 0.5 Cigarettes Per Day: 10.0 Years Smoked: 23 Smoked in Last 30 Days: Yes Patient Interested in Nicotine Replacement: Yes Patient Given Instructions on How to Stop Smoking: Yes Date Education Initiated: 10/28/20 Second Hand Smoke Exposure: No Use of substances other than those prescribed or required for medical reasons: Yes Substance Use Type: Heroin Substance Use Type Other:: patient denies Substance Use Frequency: Chronic Longstanding Last Used Substance: Weeks (ago) Last Used Substance Other:: Four weeks ago Currently Displaying Signs/Symptoms of Drug Intoxication Withdrawal: No Other Past Substance Use Problem:: heroin Any prior treatment program specific to substance use: Yes Have you been hit, kicked, punched, or otherwise hurt by someone within the past year? If so, by whom?: No Do you feel safe in your current relationship?: Yes Is there a partner from a previous relationship who is making you feel unsafe now?: No Are you made to feel afraid or neglected: No Advance Directives: No Advance Directives Information Provided: No Do you have thoughts of harming others: None Do you have a plan to hurt others: No Plan Recently lost weight without trying: Yes service: No Current occupational status: unemployed Meds Allergies Allergy/AdvReac Type Severity Reaction Status Date / Time Sulfa (Sulfonamide Allergy Mild RASH Verified 11/02/20 10:47 Antibiotics) [Sulfa (Sulfonamides)] Home Medications Medication Instructions Recorded Confirmed Type [id number] ala 1 tab PO DAILY 10/21/20 10/27/20 History [Biktarvy] buprenorphine-naloxone [Suboxone] 1 strip SUBLINGUAL BID 10/21/20 10/21/20 History fluticasone propionate [Flovent 1 puff PO BID 10/21/20 10/27/20 History HFA] insulin aspart U-100 [Novolog 0 unit SUBCUT TID 10/21/20 10/27/20 History Flexpen U-100 Insulin] insulin glargine [Lantus Solostar 18 unit SUBCUT BID 10/21/20 10/27/20 History U-100 Insulin] Exam Exam Date and Time: November 02, 2020 1041 Height,Weight and Vital Signs: Height 5 ft 7 in Weight 63 kg Vital Signs Temp Pulse Resp BP Pulse Ox 11/02/20 10:48 98.8 F 84 16 135/78 98 11/02/20 06:52 98.5 F 79 18 123/76 97 11/02/20 00:00 99.1 F 90 18 129/74 97 11/01/20 19:12 98.3 F 93 17 126/74 98 11/01/20 15:19 99.0 F 87 18 131/76 97 Last Vital Signs Temp 98.5 F 11/02/20 06:52 Pulse 79 11/02/20 06:52 Resp 18 11/02/20 06:52 BP 123/76 11/02/20 06:52 Pulse Ox 97 11/02/20 06:52 Pertinent Lab Results Pertinent Lab Results: Abnormal lab results 11/01/20 11/01/20 11/01/20 Range/Units 11:24 16:09 20:36 Sodium (135-145) mmol/L Anion Gap (12-20) POC Glucose 173 H 254 H 188 H (60-115) mg/dL Magnesium (1.6-2.6) mg/dL 11/02/20 Range/Units 08:41 Sodium 132 L (135-145) mmol/L Anion Gap 10 L (12-20) POC Glucose (60-115) mg/dL Magnesium 1.5 L (1.6-2.6) mg/dL Covid Negative Airway Mallampati Class: II TM Dist: >3cm Neck ROM: Full Loose/Missing/Broken Teeth: Yes (Many broken and missing) Heart: RRR Lungs: CTAB Assessment and Plan Assessment Anesthesia Assessment: Anesthesia Plan Discussed and Chart Reviewed Final Anesthetic Review NPO: Yes ASA Class: III Final Preanesthetic Review: No Changes in Pt Med Stat, Meds/Allgs Chart Reviewed, Consent Obtained/Reviewed and Anes Risks/Benef Reviewed Patient Risk: Intermediate Procedure Risk: Low Assessment/Block/Sedation in SS: Assess/Block/Sedation-SS Anesthetic Plan Anesthetic Plan: GA Disposition: Standard PACU
--- NOTE | 2020-11-02 10:46 | HO.PM.IMPN ---
Subjective Subjective Date of Service: 11/02/20 Interval History: Seen in f/u for MSSA bacteremia, leg cellulitis ad abscess, s/p drainage yesterday by IR. Patient continue to have pain in the leg and knee. Surgery was planned this morning however, had to be delayed yet again because potassium level was lower despite been given IV and Oral potassium the day prior Review of Systems No fever Right leg pain and knee pain Physical Exam Vital Signs: Vital Signs: Vitals were reviewed on 11/01/20 and found to bee unremarkable. Const: General: alert and awake Nutritional Appearance: thin Orientation/consciousness: patient oriented x3 Resp: Effort & Inspection: normal respiratory effort and no respiratory distress Cardio: Rate: regular rate Rhythm: regular rhythm GI: Palpation (GI): Soft to palpation and nontender Skin: General skin exam: no rashes or lesions noted Neuro: General: patient oriented x3 Extrem: Other: Right lower extremity of the erythema, including the knee edema, warmth from foot to thigh; extreme tenderness, o sings of cyanosis Objective Data Current Medications Generic Name Dose Route Start Last Admin Trade Name Demianq PRN Reason Stop Dose Admin Acetaminophen 650 mg 10/27/20 22:35 10/30/20 10:12 Acetaminophen 325 Mg Tablet PO 650 mg Q6H PRN Administration Pain, Mild (Pain Scale 1-3) Atovaquone 750 mg 10/27/20 21:00 11/02/20 08:16 Atovaquone 750 Mg/5 Ml Oral.Susp PO 750 mg BID TOMY Administration Bictegravir/Emtricitabine/Tenofovir 1 tab 10/28/20 09:00 11/02/20 08:16 Bictegrav/Emtricit/Tenofov Ala 1 Tab Tablet PO 1 tab DAILY TOMY Administration Clonidine HCl 0.1 mg 10/27/20 20:55 10/28/20 21:28 Clonidine Hcl 0.1 Mg Tablet PO 0.1 mg BID PRN Administration withdrawal Protocol Docusate Sodium 100 mg 10/27/20 20:25 Docusate Sodium 100 Mg Capsule PO DAILY PRN Constipation Enoxaparin Sodium 40 mg 10/27/20 20:30 11/01/20 21:08 Enoxaparin Sodium 40 Mg/0.4 Ml Syringe SUBCUT 40 mg Q24H TOMY Administration Fluconazole 200 mg 10/28/20 09:00 11/02/20 08:05 Fluconazole 100 Mg Tablet PO 200 mg DAILY TOMY Administration Fluticasone Propionate 1 puff 10/28/20 08:00 11/02/20 08:13 Fluticasone Propionate 100 Mcg Blst.W.Dev INHALE 1 puff RBID [facility] Administration Nafcillin Sodium 2 gm/ Sodium 100 mls @ 200 mls/hr 10/27/20 20:30 11/02/20 09:22 Chloride IV Infused Q4H [facility] Infusion Insulin Glargine 20 unit 10/30/20 21:00 11/02/20 08:15 Insulin Glargine,Hum.Rec.Anlog 100 Unit/Ml 10 Ml Vial SUBCUT Not Given BID [facility] Insulin Human Lispro 0 unit 10/27/20 21:00 11/02/20 07:07 Insulin Lispro 100 Unit/Ml 3 Ml Vial SUBCUT Not Given QIDACHS [facility] Protocol Pharmacy Consult 1 each 10/27/20 18:35 Consult Rx Perform Med Rec MISCELLANE ONCE PRN Consult order Potassium Chloride 40 meq 10/31/20 10:15 11/02/20 08:06 Potassium Chloride Packet 20 Meq Packet PO 40 meq BID [facility] Administration Sodium Chloride 3 ml 10/28/20 00:00 11/02/20 08:16 0.9 % Sodium Chloride Flush 3 Ml Syringe IVFLUSH 3 ml QSHIFT [facility] Administration Labs CBC & Chem 7: 10/31/20 08:51 11/02/20 08:41 Microbiology Microbiology Results: Microbiology 10/30/20 09:53 Knee aspirate Gram Stain - Final 10/30/20 09:53 Knee aspirate Routine Culture - Final Staphylococcus aureus 10/30/20 09:53 Knee aspirate Anaerobic Culture - Preliminary Culture in progress. 10/30/20 09:53 Knee aspirate Gross Specimen Examination - Final 10/30/20 09:53 Knee aspirate Fluid Crystals - Final 10/30/20 09:53 Knee aspirate Joint Fluid Culture - Final 10/27/20 18:52 Blood - Venous Blood Culture - Final No growth after 5 days. 10/27/20 18:33 Blood - Venous Blood Culture - Final No growth after 5 days. 10/30/20 Unknown Knee - Aspirate Gram Stain - Final 10/30/20 Unknown Knee - Aspirate Routine Culture - Final 10/30/20 Unknown Knee - Aspirate Anaerobic Culture - Final 10/28/20 16:55 Leg - Right Gram Stain - Final 10/28/20 16:55 Leg - Right Routine Culture - Final Staphylococcus aureus 10/27/20 19:02 Urine clean catch - Clean Catch Midstream Urine Culture - Final Klebsiella pneumoniae Assessment and Plan (1) AIDS: Problem details: Last CD4 count 54 Status: Acute (2) Bacteremia: Problem details: Vancomycin Status: Acute (3) Sepsis: Status: Acute (4) Thrush, oral: Status: Acute (5) Cellulitis: Status: Acute Assessment and Plan: 55-year-old male with history of HIV/aids, hepatitis C virus, diabetes, recent admission for RLE cellulitis/MSSA bacteremia (left AMA 10/24/20) returns with ongoing pain and swelling of the right leg Sepsis d/t Bacteremia BCx from 10/21 growing MSSA, BCx from 10/27 No growth. Abscess gram stain from 10/28 Staph Aurues RLE cellulitis and possible abscess collection Echo 10/24 no vegetation fluid collection seen on US from 10/21 echo from 10/24 no vegetation -Continue IV nafcillin, PO Keflex if no bacteremia -follow-up repeat blood cultures -pain control Abscsess of right s/p IR drainage of leg on 10/28 Spetic Knee--to OR for further drainage once potassium level is corrected Diabetes, better controll -continue Lantus and SSI Hypomagnesemia Replaced Opiate abuse -clonidine prn -addiction medicine consult HIV/aids -resume Biktarvy -Diflucan -Mepron Thrombocytopenia Chronic. Follow CBC Hypokalemia--Getting IV and PO K Anemia Chronic. At baseline Follow CBC DVT prophylaxis-Lovenox Code status-full code This is a late entry note for 11/01/12
[2020-11-02 10:57] LABS: Glucose, Whole Blood 82 mg/dL (60-115)
--- NOTE | 2020-11-02 10:58 | P.PNIM_ITS ---
Subjective Subjective Date of Service: 11/02/20 Interval History: Seen in f/u for MSSA bacteremia, leg cellulitis ad abscess, s/p drainage yesterday by IR. Patient continue to have pain in the leg and knee. No change in status. Potassium level is better and is planned for surgery today Review of Systems No fever Right leg pain and knee pain Physical Exam Vital Signs: Vital Signs: Last Vital Signs Temp 98.8 F 11/02/20 10:48 Pulse 84 11/02/20 10:48 Resp 16 11/02/20 10:48 BP 135/78 11/02/20 10:48 Pulse Ox 98 11/02/20 10:48 Body Mass Index 21.7 Const: General: alert and awake Nutritional Appearance: thin Orientation/consciousness: patient oriented x3 Resp: Effort & Inspection: normal respiratory effort and no respiratory distress Cardio: Rate: regular rate Rhythm: regular rhythm GI: Palpation (GI): Soft to palpation and nontender Skin: General skin exam: no rashes or lesions noted Neuro: General: patient oriented x3 Extrem: Other: Right lower extremity of the erythema, including the knee gwendolyn ma, warmth from foot to thigh; extreme tenderness, o sings of cyanosis Objective Data Current Medications Generic Name Dose Route Start Last Admin Trade Name Freq PRN Reason Stop Dose Admin Acetaminophen 650 mg 10/27/20 22:35 10/30/20 10:12 Acetaminophen 325 Mg Tablet PO 650 mg Q6H PRN Administration Pain, Mild (Pain Scale 1-3) Atovaquone 750 mg 10/27/20 21:00 11/02/20 08:16 Atovaquone 750 Mg/5 Ml Oral.Susp PO 750 mg BID TOMY Administration Bictegravir/Emtricitabine/Tenofovir 1 tab 10/28/20 09:00 11/02/20 08:16 Bictegrav/Emtricit/Tenofov Ala 1 Tab Tablet PO 1 tab DAILY TOMY Administration Clonidine HCl 0.1 mg 10/27/20 20:55 10/28/20 21:28 Clonidine Hcl 0.1 Mg Tablet PO 0.1 mg BID PRN Administration withdrawal Protocol Docusate Sodium 100 mg 10/27/20 20:25 Docusate Sodium 100 Mg Capsule PO DAILY PRN Constipation Enoxaparin Sodium 40 mg 10/27/20 20:30 11/01/20 21:08 Enoxaparin Sodium 40 Mg/0.4 Ml Syringe SUBCUT 40 mg Q24H COUNT INCLUDES THE [facility] Administration Fluconazole 200 mg 10/28/20 09:00 11/02/20 08:05 Fluconazole 100 Mg Tablet PO 200 mg DAILY COUNT INCLUDES THE [facility] Administration Fluticasone Propionate 1 puff 10/28/20 08:00 11/02/20 08:13 Fluticasone Propionate 100 Mcg Blst.W.Dev INHALE 1 puff RBID COUNT INCLUDES THE [facility] Administration Nafcillin Sodium 2 gm/ Sodium 100 mls @ 200 mls/hr 10/27/20 20:30 11/02/20 09:22 Chloride IV Infused Q4H COUNT INCLUDES THE [facility] Infusion Insulin Glargine 20 unit 10/30/20 21:00 11/02/20 08:15 Insulin Glargine,Hum.Rec.Anlog 100 Unit/Ml 10 Ml Vial SUBCUT Not Given BID COUNT INCLUDES THE [facility] Insulin Human Lispro 0 unit 10/27/20 21:00 11/02/20 07:07 Insulin Lispro 100 Unit/Ml 3 Ml Vial SUBCUT Not Given QIDACHS COUNT INCLUDES THE [facility] Protocol Pharmacy Consult 1 each 10/27/20 18:35 Consult Rx Perform Med Rec MISCELLANE ONCE PRN Consult order Potassium Chloride 40 meq 10/31/20 10:15 11/02/20 08:06 Potassium Chloride Packet 20 Meq Packet PO 40 meq BID COUNT INCLUDES THE [facility] Administration Sodium Chloride 3 ml 10/28/20 00:00 11/02/20 08:16 0.9 % Sodium Chloride Flush 3 Ml Syringe IVFLUSH 3 ml QSHIFT COUNT INCLUDES THE [facility] Administration Labs CBC & Chem 7: 10/31/20 08:51 11/02/20 08:41 Microbiology Microbiology Results: Microbiology 10/30/20 09:53 Knee aspirate Gram Stain - Final 10/30/20 09:53 Knee aspirate Routine Culture - Final Staphylococcus aureus 10/30/20 09:53 Knee aspirate Anaerobic Culture - Preliminary Culture in progress. 10/30/20 09:53 Knee aspirate Gross Specimen Examination - Final 10/30/20 09:53 Knee aspirate Fluid Crystals - Final 10/30/20 09:53 Knee aspirate Joint Fluid Culture - Final 10/27/20 18:52 Blood - Venous Blood Culture - Final No growth after 5 days. 10/27/20 18:33 Blood - Venous Blood Culture - Final No growth after 5 days. 10/30/20 Unknown Knee - Aspirate Gram Stain - Final 10/30/20 Unknown Knee - Aspirate Routine Culture - Final 10/30/20 Unknown Knee - Aspirate Anaerobic Culture - Final 10/28/20 16:55 Leg - Right Gram Stain - Final 10/28/20 16:55 Leg - Right Routine Culture - Final Staphylococcus aureus 10/27/20 19:02 Urine clean catch - Clean Catch Midstream Urine Culture - Final Klebsiella pneumoniae Assessment and Plan (1) AIDS: Problem details: Last CD4 count 54 Status: Acute (2) Bacteremia: Problem details: Vancomycin Status: Acute (3) Sepsis: Status: Acute (4) Thrush, oral: Status: Acute (5) Cellulitis: Status: Acute Assessment and Plan: 55-year-old male with history of HIV/aids, hepatitis C virus, diabetes, recent admission for RLE cellulitis/MSSA bacteremia (left AMA 10/24/20) returns with ongoing pain and swelling of the right leg Sepsis d/t Bacteremia BCx from 10/21 growing MSSA, BCx from 10/27 No growth. Abscess gram stain from 10/28 Kellie Persaud RLE cellulitis and possible abscess collection Echo 10/24 no vegetation fluid collection seen on US from 10/21 echo from 10/24 no vegetation -Continue IV nafcillin, PO Keflex if no bacteremia -follow-up repeat blood cultures -pain control Abscsess of right s/p IR drainage of leg on 10/28 Spetic Knee--to OR for further drainage today 11/02 Diabetes, better controll -continue Lantus and SSI Hypomagnesemia Replaced Opiate abuse -clonidine prn -addiction medicine consult HIV/aids -resume Biktarvy -Diflucan -Mepron Thrombocytopenia Chronic. Follow CBC Hypokalemia--Replaced and now 3.5, wll continue to monitor level Anemia Chronic. At baseline Follow CBC DVT prophylaxis-Lovenox Code status-full code
[2020-11-02 11:37] LABS: Magnesium 1.5 mg/dL (1.6-2.6)
--- NOTE | 2020-11-02 12:23 | MHC.CM.PN ---
Addendum entered by [place] Child RN 11/02/20 12:30: CM WILL CON'T TO FOLLOW PT FOR DISCHARGE NEEDS. Original Note: NO PLAN FOR D/C TODAY, PT TRANSFERRED TO OR AT 10:30AM FOR DRAINAGE OF SEPTIC KNEE.
--- NOTE | 2020-11-02 12:32 | PM.PRCOR ---
Brief Operative Note Date of procedure: 11/02/20 Pre-op diagnosis: septic eight knee Post-op diagnosis: same Procedure: arthroscopic i and d right knee Anesthesia: GETA Surgeon: Gus Aceves Estimated blood loss (mL): 0 Condition: stable Disposition: PACU
[2020-11-02 13:01] LABS: Glucose, Whole Blood 91 mg/dL (60-115)
[2020-11-02 13:30] LABS: Glucose, Whole Blood 88 mg/dL (60-115)
--- NOTE | 2020-11-02 16:26 | PM.IDPN ---
Subjective Subjective Date of Service: 11/02/20 Interval History: he says he feels week Objective Data Labs CBC & Chem 7: 10/31/20 08:51 11/02/20 08:41 Labs: Laboratory Results - last 24 hr 11/01/20 11/02/20 11/02/20 20:36 06:56 08:41 Sodium 132 L Potassium 3.5 D Chloride 101 Carbon Dioxide 25 Anion Gap 10 L POC Glucose 188 H 93 Magnesium 1.5 L 11/02/20 11/02/20 11/02/20 10:52 12:58 13:25 Sodium Potassium Chloride Carbon Dioxide Anion Gap POC Glucose 82 91 88 Magnesium Microbiology Microbiology Results: Microbiology 10/30/20 09:53 Knee aspirate Gram Stain - Final 10/30/20 09:53 Knee aspirate Routine Culture - Final Staphylococcus aureus 10/30/20 09:53 Knee aspirate Anaerobic Culture - Preliminary Culture in progress. 10/30/20 09:53 Knee aspirate Gross Specimen Examination - Final 10/30/20 09:53 Knee aspirate Fluid Crystals - Final 10/30/20 09:53 Knee aspirate Joint Fluid Culture - Final 10/27/20 18:52 Blood - Venous Blood Culture - Final No growth after 5 days. 10/27/20 18:33 Blood - Venous Blood Culture - Final No growth after 5 days. 10/30/20 Unknown Knee - Aspirate Gram Stain - Final 10/30/20 Unknown Knee - Aspirate Routine Culture - Final 10/30/20 Unknown Knee - Aspirate Anaerobic Culture - Final 10/28/20 16:55 Leg - Right Gram Stain - Final 10/28/20 16:55 Leg - Right Routine Culture - Final Staphylococcus aureus 10/27/20 19:02 Urine clean catch - Clean Catch Midstream Urine Culture - Final Klebsiella pneumoniae Physical Exam Vital Signs: Vital Signs: Last Vital Signs Temp 99.6 F 11/02/20 16:00 Pulse 71 11/02/20 16:00 Resp 24 H 11/02/20 16:00 BP 132/78 11/02/20 16:00 Pulse Ox 99 11/02/20 16:00 Body Mass Index 21.7 Const: General: cooperative HENMT: Head: Yes normal to inspection Mouth: Normal oral and palatal mucosa present Eyes: General: appearance normal, both eyes and all related structures Resp: Effort & Inspection: normal respiratory effort Cardio: Rate: regular rate Rhythm: regular rhythm GI: Palpation (GI): Soft to palpation and not firm Extrem: Other: right knee some swelling Assessment and Plan Assessment and plan (1) Septic arthritis of knee, right: Problem details: He has MSSA in knee He is getting surgery today Status: Acute Assessment and Plan: Continue antibiotics Should give for four weeks If patient goes AMA would give po Keflex for a month (2) AIDS: Problem details: Last CD4 count 54 Status: Acute Assessment and Plan: Contact C Time Spent With Patient Time: Total time spent is greater than 50% in coordination of care (as documented) at patient's floor/unit and/or counseling patient: Time with patient: 15 - 24 minutes
[2020-11-02 16:37] LABS: Glucose, Whole Blood 183 mg/dL (60-115)
[2020-11-02] MEDS: Insulin Lispro 100 UNIT/ML 3 ML VIAL SUBCUT ×2 (16:47→20:55)
[2020-11-02 20:39] LABS: Glucose, Whole Blood 257 mg/dL (60-115)
[2020-11-02] MEDS: oxyCODONE HCl Immed Release 5 MG TABLET 10 MG PO (20:53)
[2020-11-02] MEDS: cloNIDine HCL 0.1 MG TABLET PO (20:53)
[2020-11-02] MEDS: Insulin Glargine,Hum.rec.anlog 100 UNIT/ML 10 ML VIAL 20 UNIT SUBCUT (20:54)
[2020-11-02] MEDS: Enoxaparin Sodium 40 MG/0.4 ML SYRINGE SUBCUT (20:55)
[2020-11-03] VITALS: BP 152/85; PULSE 80; RESP 16; TEMP 37.2; O2SAT 99
[2020-11-03] MEDS: Nafcillin Sodium 2 GM in 0.9 % Sodium Chloride 100 ML IV ×6 (00:11→21:05)
[2020-11-03 07:34] VITALS: BP 133/71; PULSE 78; RESP 15; TEMP 36.2; O2SAT 98
[2020-11-03 08:01] LABS: Glucose, Whole Blood 61 mg/dL (60-115)
[2020-11-03] MEDS: Potassium Chloride Packet 20 MEQ PACKET 40 MEQ PO (08:01)
[2020-11-03] MEDS: Fluconazole 100 MG TABLET 200 MG PO (08:01)
[2020-11-03] MEDS: Atovaquone 750 MG/5 ML ORAL.SUSP PO ×2 (08:01→21:05)
[2020-11-03] MEDS: 0.9 % Sodium Chloride Flush 3 ML SYRINGE IVFLUSH ×4 (08:07→13:11)
--- NOTE | 2020-11-03 09:50 | MHC.CM.PN ---
CM VERIFIED PT'S PCP WITH [facility] DR ABELARDO HERZOG AT [facility].
[2020-11-03] MEDS: oxyCODONE HCl Immed Release 5 MG TABLET 10 MG PO (10:06)
--- NOTE | 2020-11-03 10:22 | MHC.CM.PN ---
CM MET WITH PT WITH [facility], PT VERIFIES HIS PCP DR. HERZOG AND THAT HE SAW HIS PCP PRIOR TO HOSPITALIZATION. PT ALSO VERIFIED ADDRESS [address] IN [place]. PT REPORTS HE WILL NEED TRANSPORTATION HOME AND WOULD LIKE TO LEAVE SOON POSSIBLE IF DISCHARGING TODAY DUE TO WEATHER. CM WILL ARRANGE TRANSPORT FOR PT.
--- NOTE | 2020-11-03 10:30 | HO.POSTANES ---
Post Anesthesia Evaluation Post Anesthesia Evaluation Vital Signs: Vital Signs Temp Pulse Resp BP Pulse Ox 11/03/20 07:34 97.2 F 78 15 133/71 98 11/03/20 00:00 99 F 80 16 152/85 H 99 Anesthesia: General Mental Status: Awake Pain Control: Satisfactory Nausea/Vomiting: None Hydration: Adequate Anesthesia-Related Issues: No Anes. Related Issues
--- NOTE | 2020-11-03 11:15 | MHC.CM.PN ---
Addendum entered by [place] Child RN 11/03/20 12:13: PT ACCEPTED AT [facility], PT AGREEABLE TO GO AT THIS TIME, CM WILL KEEP FACILITY UPDATED. Original Note: REFERRALS MADE TO [facility] AND [facility] FOR USP IV ANTIBIOTICS, PER INFECTIOUS DISEASE PT WILL NEED 4 MORE WEEKS.
[2020-11-03 11:22] VITALS: BP 130/77; PULSE 85; RESP 16; TEMP 36.4; O2SAT 99
[2020-11-03 11:44] LABS: Glucose, Whole Blood 123 mg/dL (60-115)
[2020-11-03 11:52] VITALS: O2SAT 99
--- NOTE | 2020-11-03 12:34 | P.PNOP_ITS ---
Subjective Subjective Date of Service: 11/03/20 Interval history: POD 1 s/p Right knee arthroscopy irrigation and lavage. He is doing much better today as far as the pain. No concerns. Physical Exam Vital Signs: Vital Signs: Last Vital Signs Temp 97.5 F 11/03/20 11:22 Pulse 85 11/03/20 11:22 Resp 16 11/03/20 11:22 BP 130/77 11/03/20 11:22 Pulse Ox 99 11/03/20 11:22 Body Mass Index 21.7 Extrem: Other: Right knee skin intact. No erythema, mild edema, improving ROM , calf supple non tender Progress Note: A&P Assessment and plan (1) Septic arthritis of knee, right: Status: Acute Assessment and Plan: cont pain mgmnt cont iv abx per medical team PT for ROM and quad strength dispo planning Fall Risk Details Current Medications: Current Medications Generic Name Dose Route Start Last Admin Trade Name Freq PRN Reason Stop Dose Admin Acetaminophen 650 mg 10/27/20 22:35 10/30/20 10:12 Acetaminophen 325 Mg Tablet PO 650 mg Q6H PRN Administration Pain, Mild (Pain Scale 1-3) Atovaquone 750 mg 10/27/20 21:00 11/03/20 08:01 Atovaquone 750 Mg/5 Ml Oral.Susp PO 750 mg BID TOMY Administration Bictegravir/Emtricitabine/Tenofovir 1 tab 10/28/20 09:00 11/03/20 08:01 Bictegrav/Emtricit/Tenofov Ala 1 Tab Tablet PO 1 tab DAILY TOMY Administration Clonidine HCl 0.1 mg 10/27/20 20:55 11/02/20 20:53 Clonidine Hcl 0.1 Mg Tablet PO 0.1 mg BID PRN Administration withdrawal Protocol Docusate Sodium 100 mg 10/27/20 20:25 Docusate Sodium 100 Mg Capsule PO DAILY PRN Constipation Enoxaparin Sodium 40 mg 10/27/20 20:30 11/02/20 20:55 Enoxaparin Sodium 40 Mg/0.4 Ml Syringe SUBCUT 40 mg Q24H TOMY Administration Fentanyl 25 mcg 11/02/20 12:37 Fentanyl Citrate/Pf 100 Mcg/2 Ml Vial IVPUSH Q5M PRN Pain, Moderate (Pain Scale 4-6 Fluconazole 200 mg 10/28/20 09:00 11/03/20 08:01 Fluconazole 100 Mg Tablet PO 200 mg DAILY TOMY Administration Fluticasone Propionate 1 puff 10/28/20 08:00 11/03/20 07:47 Fluticasone Propionate 100 Mcg Blst.W.Dev INHALE Not Given RBID [facility] Nafcillin Sodium 2 gm/ Sodium 100 mls @ 200 mls/hr 10/27/20 20:30 11/03/20 08:57 Chloride IV Infused Q4H [facility] Infusion Insulin Glargine 20 unit 10/30/20 21:00 11/03/20 07:54 Insulin Glargine,Hum.Rec.Anlog 100 Unit/Ml 10 Ml Vial SUBCUT Not Given BID [facility] Insulin Human Lispro 0 unit 10/27/20 21:00 11/03/20 12:16 Insulin Lispro 100 Unit/Ml 3 Ml Vial SUBCUT Not Given QIDACHS [facility] Protocol Ondansetron HCl 4 mg 11/02/20 11:55 Ondansetron Hcl 4 Mg/2 Ml Vial IVPUSH ONCE PRN Nausea and Vomiting Oxycodone HCl 5 mg 11/02/20 12:37 Oxycodone Hcl Immed Release 5 Mg Tablet PO ONCE PRN Pain, Moderate (Pain Scale 4-6 Oxycodone HCl 10 mg 11/02/20 12:37 Oxycodone Hcl Immed Release 5 Mg Tablet PO ONCE PRN Pain, Severe (Pain Scale 7-10) Oxycodone HCl 10 mg 11/02/20 13:23 11/03/20 10:06 Oxycodone Hcl Immed Release 5 Mg Tablet PO 10 mg Q6H PRN Administration Pain, Moderate (Pain Scale 4-6 Pharmacy Consult 1 each 10/27/20 18:35 Consult Rx Perform Med Rec MISCELLANE ONCE PRN Consult order Potassium Chloride 40 meq 10/31/20 10:15 11/03/20 08:01 Potassium Chloride Packet 20 Meq Packet PO 40 meq BID TOMY Administration Sodium Chloride 3 ml 10/28/20 00:00 11/03/20 08:07 0.9 % Sodium Chloride Flush 3 Ml Syringe IVFLUSH 3 ml QSHIFT TOMY Administration Sodium Chloride 3 ml 11/02/20 16:00 11/03/20 08:07 0.9 % Sodium Chloride Flush 3 Ml Syringe IVFLUSH 3 ml QSHIFT TOMY Administration Time Spent With Patient Time: Total time spent is greater than 50% in coordination of care (as documented) at patient's floor/unit and/or counseling patient: Time with patient: less than 15 minutes
[2020-11-03] MEDS: traMADoL HCL 50 MG TABLET PO (13:10)
--- NOTE | 2020-11-03 14:12 | P.PNIM_ITS ---
Subjective Subjective Date of Service: 11/04/20 Interval History: f/u for MSSA bacteremia, leg cellulitis ad abscess, s/p drainage yesterday by IR. Patient continue to have pain in the leg and knee. No change in status. Potassium level is better and is planned for surgery today Review of Systems knee pain seems improving slowly , moving his leg better. Denies any chest pain or shortness of breath or fever. Physical Exam Vital Signs: Vital Signs: Last Vital Signs Temp 97.5 F 11/03/20 11:22 Pulse 85 11/03/20 11:22 Resp 16 11/03/20 11:22 BP 130/77 11/03/20 11:22 Pulse Ox 99 11/03/20 11:52 Body Mass Index 21.7 Physical exam : Constitutional: Not in acute distress. Cvs: [id number], [id number] , no murmur res: clear to auscultation ,no rhonchii or wheezing abd: no rebound or guarding ,nt, bs present. ext pulses present , no cyanosis neuro: axo3 , nonfocal. Objective Data Current Medications Generic Name Dose Route Start Last Admin Trade Name Freq PRN Reason Stop Dose Admin Acetaminophen 650 mg 10/27/20 22:35 10/30/20 10:12 Acetaminophen 325 Mg Tablet PO 650 mg Q6H PRN Administration Pain, Mild (Pain Scale 1-3) Atovaquone 750 mg 10/27/20 21:00 11/03/20 08:01 Atovaquone 750 Mg/5 Ml Oral.Susp PO 750 mg BID TOMY Administration Bictegravir/Emtricitabine/Tenofovir 1 tab 10/28/20 09:00 11/03/20 08:01 Bictegrav/Emtricit/Tenofov Ala 1 Tab Tablet PO 1 tab DAILY TOMY Administration Clonidine HCl 0.1 mg 10/27/20 20:55 11/02/20 20:53 Clonidine Hcl 0.1 Mg Tablet PO 0.1 mg BID PRN Administration withdrawal Protocol Docusate Sodium 100 mg 10/27/20 20:25 Docusate Sodium 100 Mg Capsule PO DAILY PRN Constipation Enoxaparin Sodium 40 mg 10/27/20 20:30 11/02/20 20:55 Enoxaparin Sodium 40 Mg/0.4 Ml Syringe SUBCUT 40 mg Q24H TOMY Administration Fentanyl 25 mcg 11/02/20 12:37 Fentanyl Citrate/Pf 100 Mcg/2 Ml Vial IVPUSH Q5M PRN Pain, Moderate (Pain Scale 4-6 Fluconazole 200 mg 10/28/20 09:00 11/03/20 08:01 Fluconazole 100 Mg Tablet PO 200 mg DAILY TOMY Administration Fluticasone Propionate 1 puff 10/28/20 08:00 11/03/20 13:06 Fluticasone Propionate 100 Mcg Blst.W.Dev INHALE Not Given RBID [facility] Nafcillin Sodium 2 gm/ Sodium 100 mls @ 200 mls/hr 10/27/20 20:30 11/03/20 13:28 Chloride IV Infused Q4H [facility] Infusion Insulin Glargine 20 unit 10/30/20 21:00 11/03/20 07:54 Insulin Glargine,Hum.Rec.Anlog 100 Unit/Ml 10 Ml Vial SUBCUT Not Given BID [facility] Insulin Human Lispro 0 unit 10/27/20 21:00 11/03/20 12:16 Insulin Lispro 100 Unit/Ml 3 Ml Vial SUBCUT Not Given QIDACHS [facility] Protocol Ondansetron HCl 4 mg 11/02/20 11:55 Ondansetron Hcl 4 Mg/2 Ml Vial IVPUSH ONCE PRN Nausea and Vomiting Oxycodone HCl 5 mg 11/02/20 12:37 Oxycodone Hcl Immed Release 5 Mg Tablet PO ONCE PRN Pain, Moderate (Pain Scale 4-6 Oxycodone HCl 10 mg 11/02/20 12:37 Oxycodone Hcl Immed Release 5 Mg Tablet PO ONCE PRN Pain, Severe (Pain Scale 7-10) Oxycodone HCl 10 mg 11/02/20 13:23 11/03/20 10:06 Oxycodone Hcl Immed Release 5 Mg Tablet PO 10 mg Q6H PRN Administration Pain, Moderate (Pain Scale 4-6 Pharmacy Consult 1 each 10/27/20 18:35 Consult Rx Perform Med Rec MISCELLANE ONCE PRN Consult order Potassium Chloride 40 meq 10/31/20 10:15 11/03/20 08:01 Potassium Chloride Packet 20 Meq Packet PO 40 meq BID TOMY Administration Sodium Chloride 3 ml 10/28/20 00:00 11/03/20 13:11 0.9 % Sodium Chloride Flush 3 Ml Syringe IVFLUSH 3 ml QSHIFT TOMY Administration Sodium Chloride 3 ml 11/02/20 16:00 11/03/20 13:11 0.9 % Sodium Chloride Flush 3 Ml Syringe IVFLUSH 3 ml QSHIFT TOMY Administration Tramadol HCl 50 mg 11/03/20 12:45 11/03/20 13:10 Tramadol Hcl 50 Mg Tablet PO 50 mg Q6H PRN Administration Pain, Mild (Pain Scale 1-3) Labs CBC & Chem 7: 11/04/20 07:39 11/04/20 06:05 Microbiology Microbiology Results: Microbiology 10/30/20 09:53 Knee aspirate Gram Stain - Final 10/30/20 09:53 Knee aspirate Routine Culture - Final Staphylococcus aureus 10/30/20 09:53 Knee aspirate Anaerobic Culture - Final 10/30/20 09:53 Knee aspirate Gross Specimen Examination - Final 10/30/20 09:53 Knee aspirate Fluid Crystals - Final 10/30/20 09:53 Knee aspirate Joint Fluid Culture - Final 10/27/20 18:52 Blood - Venous Blood Culture - Final No growth after 5 days. 10/27/20 18:33 Blood - Venous Blood Culture - Final No growth after 5 days. 10/30/20 Unknown Knee - Aspirate Gram Stain - Final 10/30/20 Unknown Knee - Aspirate Routine Culture - Final 10/30/20 Unknown Knee - Aspirate Anaerobic Culture - Final 10/28/20 16:55 Leg - Right Gram Stain - Final 10/28/20 16:55 Leg - Right Routine Culture - Final Staphylococcus aureus 10/27/20 19:02 Urine clean catch - Clean Catch Midstream Urine Culture - Final Klebsiella pneumoniae Assessment and Plan (1) Cellulitis of right leg: Status: Acute (2) Cellulitis: Status: Acute (3) AIDS: Problem details: Continue Biktarvy Set up [facility] Status: Acute (4) Bacteremia: Problem details: MSSA bacteremia He has cleared bacteremia Endocarditis concern still AIDS Status: Acute (5) Sepsis: Status: Acute (6) Thrush, oral: Status: Acute Assessment and Plan: 55-year-old male with history of HIV/aids, hepatitis C virus, diabetes, recent admission for RLE cellulitis/MSSA bacteremia (left AMA 10/24/20) returns with ongoing pain and swelling of the right leg 1.Sepsis d/t Bacteremia BCx from 10/21 growing MSSA, BCx from 10/27 No growth. Abscess gram stain from 10/28 Staph Aurues RLE cellulitis and possible abscess collection Echo 10/24 no vegetation fluid collection seen on US from 10/21 echo from 10/24 no vegetation Continue IV nafcillin day 8 blood cultures neg on 10/27( 5days) -pain control picc line in am Abscsess of right s/p IR drainage of leg on 10/28 Spetic Knee--to OR for further drainage today 11/02 Diabetes, better controll -continue Lantus and SSI Hypomagnesemia Replaced Opiate abuse -clonidine prn -addiction medicine consult HIV/aids -resume Biktarvy -Diflucan -Mepron Thrombocytopenia Chronic. Follow CBC Hypokalemia--Replaced and now 3.5, wll continue to monitor level Anemia Chronic. At baseline Follow CBC DVT prophylaxis-Lovenox Code status-full code
[2020-11-03 16:00] VITALS: BP 130/77; PULSE 87; RESP 16; TEMP 36.4; O2SAT 98
--- NOTE | 2020-11-03 16:10 | MHC.RECOVRN ---
Recovery Support note: Pt admitted on 10/21/20 for MSSA bacteremia. T/w met with patient on 10/24/20 prior to patient discharging against medical advice that same day. Pt had been on Suboxone and expressed that it had been effective in supporting him in recovery. Patient had also been given IOP and [facility] [place] information at that time. Patient returned to [facility] on 10/27/20 due to right leg pain and subsequently admitted for MSSA bacteremia and cellulitis. At this time, patient has been accepted to [facility] to continue IV antibiotics. Pt is agreeable and would like to resume Suboxone. Referral has been made to Macrina Noel NP for addiction medicine consult. It is likely pt will d/c 11/04 or 11/05 and will need a 2 week prescription of Suboxone, if resumed.
[2020-11-03 16:39] LABS: Glucose, Whole Blood 206 mg/dL (60-115)
[2020-11-03] MEDS: Insulin Lispro 100 UNIT/ML 3 ML VIAL SUBCUT ×2 (17:04→21:06)
[2020-11-03 20:45] LABS: Glucose, Whole Blood 199 mg/dL (60-115)
[2020-11-03] MEDS: Mirtazapine 7.5 MG TABLET PO (21:05)
[2020-11-03] MEDS: Insulin Glargine,Hum.rec.anlog 100 UNIT/ML 10 ML VIAL 20 UNIT SUBCUT (21:05)
[2020-11-03] MEDS: Enoxaparin Sodium 40 MG/0.4 ML SYRINGE SUBCUT (21:05)
[2020-11-03] MEDS: Buprenorphine/Naloxone 4/1 mg FILM 1 FILM SUBLINGUAL (21:05)
[2020-11-04] VITALS: BP 132/77; PULSE 89; RESP 18; TEMP 36.7; O2SAT 97
[2020-11-04] MEDS: Nafcillin Sodium 2 GM in 0.9 % Sodium Chloride 100 ML IV ×5 (00:18→21:43)
[2020-11-04] MEDS: 0.9 % Sodium Chloride Flush 3 ML SYRINGE IVFLUSH ×6 (00:27→18:51)
[2020-11-04 03:41] VITALS: BP 126/76; PULSE 94; RESP 17; TEMP 37.2; O2SAT 96
[2020-11-04 07:12] LABS: Anion Gap 10 (12-20); Blood Urea Nitrogen 10 mg/dL (9-16); Calcium 7.4 mg/dL (8.4-10.2); Carbon Dioxide 26 mmol/L (22-29); Chloride 101 mmol/L (96-108); Creatinine Clr Calc Pharmacy 102.2; Estimated Glomerular Filt Rate > 60; Glucose Random 52 mg/dL (60-115); Potassium 2.9 mmol/l (3.3-5.1); Sodium 134 mmol/L (135-145)
[2020-11-04 08:06] LABS: Glucose, Whole Blood 60 mg/dL (60-115)
--- NOTE | 2020-11-04 08:06 | PM.PNORT ---
Subjective Subjective Date of Service: 11/04/20 Interval history: POD 2 s/p Right knee irrigation and lavage Doing much better , he can move the leg without difficulty, no concerns. Physical Exam Vital Signs: Vital Signs: Last Vital Signs Temp 98.9 F 11/04/20 03:41 Pulse 94 11/04/20 03:41 Resp 17 11/04/20 03:41 BP 126/76 11/04/20 03:41 Pulse Ox 96 11/04/20 03:41 Body Mass Index 21.7 Extrem: Other: right knee incision c/d/i. no erythema, mild swelling. arom intact. Progress Note: A&P Assessment and plan (1) Septic arthritis of knee, right: Status: Acute Assessment and Plan: Physical Therapy Pain management Fall Risk Details Current Medications: Current Medications Generic Name Dose Route Start Last Admin Trade Name Freq PRN Reason Stop Dose Admin Acetaminophen 650 mg 10/27/20 22:35 10/30/20 10:12 Acetaminophen 325 Mg Tablet PO 650 mg Q6H PRN Administration Pain, Mild (Pain Scale 1-3) Atovaquone 750 mg 10/27/20 21:00 11/03/20 21:05 Atovaquone 750 Mg/5 Ml Oral.Susp PO 750 mg BID TOMY Administration Bictegravir/Emtricitabine/Tenofovir 1 tab 10/28/20 09:00 11/03/20 08:01 Bictegrav/Emtricit/Tenofov Ala 1 Tab Tablet PO 1 tab DAILY TOMY Administration Buprenorphine/Naloxone 1 film 11/04/20 09:00 Buprenorphine/Naloxone 8/2 Mg Film SUBLINGUAL DAILY TOMY Clonidine HCl 0.1 mg 10/27/20 20:55 11/02/20 20:53 Clonidine Hcl 0.1 Mg Tablet PO 0.1 mg BID PRN Administration withdrawal Protocol Docusate Sodium 100 mg 10/27/20 20:25 Docusate Sodium 100 Mg Capsule PO DAILY PRN Constipation Enoxaparin Sodium 40 mg 10/27/20 20:30 11/03/20 21:05 Enoxaparin Sodium 40 Mg/0.4 Ml Syringe SUBCUT 40 mg Q24H TOMY Administration Fluconazole 200 mg 10/28/20 09:00 11/03/20 08:01 Fluconazole 100 Mg Tablet PO 200 mg DAILY TOMY Administration Fluticasone Propionate 1 puff 10/28/20 08:00 11/03/20 21:52 Fluticasone Propionate 100 Mcg Blst.W.Dev INHALE Not Given RBID [facility] Nafcillin Sodium 2 gm/ Sodium 100 mls @ 200 mls/hr 10/27/20 20:30 11/04/20 04:20 Chloride IV Infused Q4H TOMY Infusion Potassium Chloride 10 meq in 100 mls @ 100 mls/hr 11/04/20 08:00 IV 11/04/20 09:59 Q1H [facility] Insulin Glargine 20 unit 10/30/20 21:00 11/03/20 21:05 Insulin Glargine,Hum.Rec.Anlog 100 Unit/Ml 10 Ml Vial SUBCUT 20 unit BID TOMY Administration Insulin Human Lispro 0 unit 10/27/20 21:00 11/03/20 21:06 Insulin Lispro 100 Unit/Ml 3 Ml Vial SUBCUT 2 unit QIDACHS TOMY Administration Protocol Ondansetron HCl 4 mg 11/02/20 11:55 Ondansetron Hcl 4 Mg/2 Ml Vial IVPUSH ONCE PRN Nausea and Vomiting Pharmacy Consult 1 each 10/27/20 18:35 Consult Rx Perform Med Rec MISCELLANE ONCE PRN Consult order Potassium Chloride 40 meq 10/31/20 10:15 11/03/20 21:07 Potassium Chloride Packet 20 Meq Packet PO Not Given BID TOMY Potassium Chloride 40 meq 11/04/20 07:50 Potassium Chloride Packet 20 Meq Packet PO 11/04/20 07:51 ONCE ONE Sodium Chloride 3 ml 10/28/20 00:00 11/04/20 00:27 0.9 % Sodium Chloride Flush 3 Ml Syringe IVFLUSH 3 ml QSHIFT TOMY Administration Sodium Chloride 3 ml 11/02/20 16:00 11/04/20 00:28 0.9 % Sodium Chloride Flush 3 Ml Syringe IVFLUSH 3 ml QSHIFT TOMY Administration Time Spent With Patient Time: Total time spent is greater than 50% in coordination of care (as documented) at patient's floor/unit and/or counseling patient: Time with patient: less than 15 minutes
[2020-11-04 08:14] LABS: Magnesium 1.5 mg/dL (1.6-2.6)
[2020-11-04 08:57] LABS: INTERNATIONAL NORM RATIO 1.2 (0.9-1.1); Prothrombin Time 14.7 SEC (10.8-13.0)
[2020-11-04 09:01] LABS: Hematocrit 28.8 % (42-52); Hemoglobin 9.7 g/dl (14.0-18.0)
[2020-11-04] MEDS: Potassium Chloride Packet 20 MEQ PACKET 40 MEQ PO ×2 (09:09→11:35)
--- NOTE | 2020-11-04 09:10 | MHC.CM.PN ---
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 PT WILL DISCAHRGE WITH SCRIPT FOR TWO WEEK SUPPLY. CM VERIFIED APPTS WITH CUONG GROSS IN THE MAT PROGRAM AT [facility] ON 11/08/20 AT 11:30, 11/11/20 AT 0930 AND 11/15/20 AT 0930. CM WILL TO APPT'S TO PT'S DISCHARGE AND UPDATE [facility].
[2020-11-04] MEDS: Atovaquone 750 MG/5 ML ORAL.SUSP PO (09:15)
[2020-11-04] MEDS: Fluconazole 100 MG TABLET 200 MG PO (09:15)
[2020-11-04] MEDS: Buprenorphine/Naloxone 8/2 mg FILM 1 FILM SUBLINGUAL (09:24)
[2020-11-04 10:36] VITALS: O2SAT 98
--- NOTE | 2020-11-04 10:49 | MHC.CM.PN ---
Addendum entered by [place] Child RN 11/04/20 10:50: CM HAS VERIFIED TELE APPT'S FOR PT WITH CUONG GROSS AT MAT PROGRAM AT [facility] FOR SUBOXONE, APPTS SET FOR 11/08/20 11:30AM. 11/11/20 9:30AM AND 11/15 AT 9:30AM. APPOINTMENTS ADDED TO DISCHARGE PAPERWORK AND [facility] NOTIFIED OF APPOINTMENT DATES AND TIMES. Original Note: PER INTERDISCIPLINARY ROUNDS, PT WILL NEED REDRAW OF POTASSIUM AND PICC LINE AND POSIBLE D/C TODAY.
--- NOTE | 2020-11-04 11:59 | HO.ADDICT_ITS ---
History of Present Illness Date of Service: 11/04/2020 Chief Complaint: MSSA BACTERMIA CELLULITIS COVID POSITIVE Reason for Consult: Addiction consult follow up Requesting physician: Alla Marinelli Discussed with referring provider: Yes Sources of Information: patient interviewed and chart reviewed HPI Narrative: patient being seen in follow up. Started suboxone overnight, tolerated and when seen this morning did not report any discomfort plan to be discharged to SNF to complete IV abx Review of Systems Constitutional: Denies headache(s) and Reports weakness Denies headache(s) Cardiovascular: Reports syncope Gastrointestinal: Denies loose stools, Denies nausea and Denies vomiting Reports syncope, Denies headache(s), Reports memory loss and Reports weakness Psychiatric: Reports memory loss Diagnostics Vital Signs (24Hr): Vital Signs - 24 hr 11/03/20 16:00 11/04/20 00:00 11/04/20 03:41 Temperature 97.5 F 98.0 F 98.9 F Pulse Rate 87 89 94 Respiratory Rate 16 18 17 Blood Pressure 130/77 132/77 126/76 Pulse Oximetry 98 97 96 11/04/20 10:36 Temperature Pulse Rate Respiratory Rate Blood Pressure Pulse Oximetry 98 Body Mass Index 21.7 Labs Results: 11/04/20 07:39 11/04/20 06:05 Labs: Laboratory Results - last 48 hr 11/02/20 11/02/20 11/02/20 12:58 13:25 16:27 Hgb Hct PT INR Sodium Potassium Chloride Carbon Dioxide Anion Gap BUN Creatinine Estim Creat Clear Calc Estimated GFR POC Glucose 91 88 183 H Random Glucose Calcium Magnesium 11/02/20 11/03/20 11/03/20 20:35 07:31 11:21 Hgb Hct PT INR Sodium Potassium Chloride Carbon Dioxide Anion Gap BUN Creatinine Estim Creat Clear Calc Estimated GFR POC Glucose 257 H 61 123 H Random Glucose Calcium Magnesium 11/03/20 11/03/20 11/04/20 16:35 20:35 06:05 Hgb Hct PT INR Sodium 134 L Potassium 2.9 L Chloride 101 Carbon Dioxide 26 Anion Gap 10 L BUN 10 Creatinine 0.71 Estim Creat Clear Calc 102.2 Estimated GFR > 60 POC Glucose 206 H 199 H Random Glucose 52 L* Calcium 7.4 L Magnesium 1.5 L 11/04/20 11/04/20 11/04/20 07:39 07:39 07:45 Hgb 9.7 L Hct 28.8 L PT 14.7 H D INR 1.2 H Sodium Potassium Chloride Carbon Dioxide Anion Gap BUN Creatinine Estim Creat Clear Calc Estimated GFR POC Glucose 60 Random Glucose Calcium Magnesium Imaging Radiology Impressions: ITS Impressions Chest X-Ray 10/27/20 17:44 IMPRESSION: No acute intrathoracic disease Venous Duplex 10/27/20 17:58 IMPRESSION: No DVT demonstrated in either lower extremity. Significantly enlarged complex right calf fluid collection. Lower Extremity CT 10/27/20 21:06 IMPRESSION: 1. Large fluid collection in the posterior muscular compartment with rim enhancement consistent with abscess. 2. Smaller subcutaneous fluid collection at the anterior compartment. There is also generalized subcutaneous edema in the leg. Fluid Drainage 10/28/20 11:27 IMPRESSION: Successful ultrasound-guided right calf abscess drainage without immediate complications. Mental Status Exam Mental Status Exam Patient Appearance: Appropriate Level of Consciousness: Awake, Appropriate and Alert Patient Behavior: Appropriate Mood Description: Anxious Affect Description: Anxious Ability to Follow Directions: Good Speech Pattern: Clear Hallucinations: None Thought Process: Slowed Thinking Thought Content: positive for [place] Judgement: Fair Medications Medications Current Medications Generic Name Dose Route Start Last Admin Trade Name Freq PRN Reason Stop Dose Admin Acetaminophen 650 mg 10/27/20 22:35 10/30/20 10:12 Acetaminophen 325 Mg Tablet PO 650 mg Q6H PRN Administration Pain, Mild (Pain Scale 1-3) Atovaquone 750 mg 10/27/20 21:00 11/04/20 09:15 Atovaquone 750 Mg/5 Ml Oral.Susp PO 750 mg BID TOMY Administration Bictegravir/Emtricitabine/Tenofovir 1 tab 10/28/20 09:00 11/04/20 09:15 Bictegrav/Emtricit/Tenofov Ala 1 Tab Tablet PO 1 tab DAILY TOMY Administration Buprenorphine/Naloxone 1 film 11/04/20 09:00 11/04/20 09:24 Buprenorphine/Naloxone 8/2 Mg Film SUBLINGUAL 1 film DAILY TOMY Administration Clonidine HCl 0.1 mg 10/27/20 20:55 11/02/20 20:53 Clonidine Hcl 0.1 Mg Tablet PO 0.1 mg BID PRN Administration withdrawal Protocol Docusate Sodium 100 mg 10/27/20 20:25 Docusate Sodium 100 Mg Capsule PO DAILY PRN Constipation Enoxaparin Sodium 40 mg 10/27/20 20:30 11/03/20 21:05 Enoxaparin Sodium 40 Mg/0.4 Ml Syringe SUBCUT 40 mg Q24H TOMY Administration Fluconazole 200 mg 10/28/20 09:00 11/04/20 09:15 Fluconazole 100 Mg Tablet PO 200 mg DAILY TOMY Administration Fluticasone Propionate 1 puff 10/28/20 08:00 11/03/20 21:52 Fluticasone Propionate 100 Mcg Blst.W.Dev INHALE Not Given RBID [facility] Nafcillin Sodium 2 gm/ Sodium 100 mls @ 200 mls/hr 10/27/20 20:30 11/04/20 09:42 Chloride IV Infused Q4H [facility] Infusion Insulin Glargine 20 unit 10/30/20 21:00 11/03/20 21:05 Insulin Glargine,Hum.Rec.Anlog 100 Unit/Ml 10 Ml Vial SUBCUT 20 unit BID [facility] Administration Insulin Human Lispro 0 unit 10/27/20 21:00 11/04/20 08:07 Insulin Lispro 100 Unit/Ml 3 Ml Vial SUBCUT Not Given QIDACHS [facility] Protocol Ondansetron HCl 4 mg 11/02/20 11:55 Ondansetron Hcl 4 Mg/2 Ml Vial IVPUSH ONCE PRN Nausea and Vomiting Pharmacy Consult 1 each 10/27/20 18:35 Consult Rx Perform Med Rec MISCELLANE ONCE PRN Consult order Potassium Chloride 40 meq 10/31/20 10:15 11/04/20 11:35 Potassium Chloride Packet 20 Meq Packet PO 40 meq BID [facility] Administration Sodium Chloride 3 ml 10/28/20 00:00 11/04/20 09:12 0.9 % Sodium Chloride Flush 3 Ml Syringe IVFLUSH 3 ml QSHIFT [facility] Administration Sodium Chloride 3 ml 11/02/20 16:00 11/04/20 09:12 0.9 % Sodium Chloride Flush 3 Ml Syringe IVFLUSH 3 ml QSHIFT [facility] Administration Allergies Allergies Allergy/AdvReac Type Severity Reaction Status Date / Time Sulfa (Sulfonamide Allergy Mild RASH Verified 11/02/20 10:47 Antibiotics) [Sulfa (Sulfonamides)] Assessment & Plan Assessment & Plan (1) Opioid use disorder: Status: Acute Code(s): F11.99 - Opioid use, unspecified with unspecified opioid-induced disorder Recommendations: Suboxone 8mg QD--prescription sent to pharmacy as requested by SNF Patient already has follow up MAT appt in place at [facility] to continue treatment Greater than 50% of the session was spent on counseling and/or coordination of care PMFSH Past Medical History Medical History (Updated 11/03/20 @ 14:15 by Alla Marinelli MD) Acute hyperglycemia Acute renal failure AIDS Anxiety Bacteremia Cellulitis of right leg Depression Diabetes Drug abuse Hepatitis C HIV (human immunodeficiency virus infection) HTN (hypertension) MSSA bacteremia Opiate abuse, continuous Septic arthritis of knee, right Family History Family History Father Alcoholism Mother Type 2 diabetes mellitus Sister No problems noted. Sister No problems noted. Brother No problems noted. Son No problems noted. Family history: reviewed and not pertinent Surgical History Surgical History History of repair of laceration Social History Social History Household Members: None Housing: Apartment Do you presently have visiting nurse or other home services: No Alcohol intake: current Alcohol intake frequency: does not drink Smoking Status: Current every day smoker Tobacco Type: Cigarette Packs Per Day: 0.5 Cigarettes Per Day: 10.0 Years Smoked: 23 Smoked in Last 30 Days: Yes Patient Interested in Nicotine Replacement: Yes Patient Given Instructions on How to Stop Smoking: Yes Date Education Initiated: 10/28/20 Second Hand Smoke Exposure: No Use of substances other than those prescribed or required for medical reasons: Yes Substance Use Type: Heroin Substance Use Type Other:: patient denies Substance Use Frequency: Chronic Longstanding Last Used Substance: Weeks (ago) Last Used Substance Other:: Four weeks ago Currently Displaying Signs/Symptoms of Drug Intoxication Withdrawal: No Other Past Substance Use Problem:: heroin Any prior treatment program specific to substance use: Yes Have you been hit, kicked, punched, or otherwise hurt by someone within the past year? If so, by whom?: No Do you feel safe in your current relationship?: Yes Is there a partner from a previous relationship who is making you feel unsafe now?: No Are you made to feel afraid or neglected: No Advance Directives: No Advance Directives Information Provided: No Do you have thoughts of harming others: None Do you have a plan to hurt others: No Plan Recently lost weight without trying: Yes service: No Current occupational status: unemployed
[2020-11-04 12:31] LABS: Glucose, Whole Blood 171 mg/dL (60-115)
--- NOTE | 2020-11-04 15:15 | PC.NURSE ---
UNABLE TO GIVE PT IV POTASSIUM DUE TO IV NOT WORKING. PER DR CHEATHAM OK TO HOLD IV POTASSIUM UNTIL PICC INSERTED
--- NOTE | 2020-11-04 15:32 | P.PNID_ITS ---
Subjective Subjective Date of Service: 11/04/20 Interval History: He feels much better He wants to leave Objective Data Labs CBC & Chem 7: 11/04/20 07:39 11/04/20 06:05 Labs: Laboratory Results - last 24 hr 11/03/20 11/03/20 11/04/20 16:35 20:35 06:05 Hgb Hct PT INR Sodium 134 L Potassium 2.9 L Chloride 101 Carbon Dioxide 26 Anion Gap 10 L BUN 10 Creatinine 0.71 Estim Creat Clear Calc 102.2 Estimated GFR > 60 POC Glucose 206 H 199 H Random Glucose 52 L* Calcium 7.4 L Magnesium 1.5 L 11/04/20 11/04/20 11/04/20 07:39 07:39 07:45 Hgb 9.7 L Hct 28.8 L PT 14.7 H D INR 1.2 H Sodium Potassium Chloride Carbon Dioxide Anion Gap BUN Creatinine Estim Creat Clear Calc Estimated GFR POC Glucose 60 Random Glucose Calcium Magnesium 11/04/20 12:27 Hgb Hct PT INR Sodium Potassium Chloride Carbon Dioxide Anion Gap BUN Creatinine Estim Creat Clear Calc Estimated GFR POC Glucose 171 H Random Glucose Calcium Magnesium Microbiology Microbiology Results: Microbiology 10/30/20 09:53 Knee aspirate Gram Stain - Final 10/30/20 09:53 Knee aspirate Routine Culture - Final Staphylococcus aureus 10/30/20 09:53 Knee aspirate Anaerobic Culture - Final 10/30/20 09:53 Knee aspirate Gross Specimen Examination - Final 10/30/20 09:53 Knee aspirate Fluid Crystals - Final 10/30/20 09:53 Knee aspirate Joint Fluid Culture - Final 10/27/20 18:52 Blood - Venous Blood Culture - Final No growth after 5 days. 10/27/20 18:33 Blood - Venous Blood Culture - Final No growth after 5 days. 10/30/20 Unknown Knee - Aspirate Gram Stain - Final 10/30/20 Unknown Knee - Aspirate Routine Culture - Final 10/30/20 Unknown Knee - Aspirate Anaerobic Culture - Final 10/28/20 16:55 Leg - Right Gram Stain - Final 10/28/20 16:55 Leg - Right Routine Culture - Final Staphylococcus aureus 10/27/20 19:02 Urine clean catch - Clean Catch Midstream Urine Culture - Final Klebsiella pneumoniae Physical Exam Vital Signs: Vital Signs: Last Vital Signs Temp 98.9 F 11/04/20 03:41 Pulse 94 11/04/20 03:41 Resp 17 11/04/20 03:41 BP 126/76 11/04/20 03:41 Pulse Ox 98 11/04/20 10:36 Body Mass Index 21.7 Const: General: cooperative HENMT: Head: Yes normal to inspection Mouth: Normal oral and palatal mucosa present Eyes: General: appearance normal, both eyes and all related structures Resp: Effort & Inspection: normal respiratory effort Cardio: Rate: regular rate Rhythm: regular rhythm GI: Palpation (GI): Soft to palpation and nontender Skin: General skin exam: no rashes or lesions noted Extrem: Other: improving right knee swelling Assessment and Plan Assessment and plan (1) Bacteremia: Problem details: MSSA bacteremia He has cleared bacteremia Endocarditis concern still AIDS Status: Acute Assessment and Plan: Would finish Nafcillin 11/19/2020 in facility (2) AIDS: Problem details: Continue Biktarvy Set up [facility] Status: Acute (3) Opioid use disorder: Status: Acute (4) Septic arthritis of knee, right: Status: Acute Time Spent With Patient Time: Total time spent is greater than 50% in coordination of care (as documented) at patient's floor/unit and/or counseling patient: Time with patient: 15 - 24 minutes
--- NOTE | 2020-11-04 15:58 | MHC.CM.PN ---
NEW DISCHARGE DATE 11/05/20 WITH 11AM TRANSFER TO [facility] VIA BLS TRANSPORT
[2020-11-04 16:00] VITALS: BP 144/79; PULSE 99; RESP 18; TEMP 37.3; O2SAT 98
--- NOTE | 2020-11-04 16:17 | P.PNIM_ITS ---
Subjective Subjective Date of Service: 11/05/20 Interval History: mssa bacteremia Review of Systems Patient has is knee pain is improving, denies any chest pain or shortness of breath or abdominal pain or fever chills or diarrhea. Physical Exam Vital Signs: Vital Signs: Last Vital Signs Temp 98.9 F 11/04/20 03:41 Pulse 94 11/04/20 03:41 Resp 17 11/04/20 03:41 BP 126/76 11/04/20 03:41 Pulse Ox 98 11/04/20 10:36 Body Mass Index 21.7 Physical exam: Constitutional: Not in acute distress Cvs: rrr, [id number] , no murmur res: clear to auscultation ,no rhonchii or wheezing abd: no rebound or guarding ,nt, bs present. ext pulses present , no cyanosis , knee area swelling improving neuro: axo3 , nonfocal. Objective Data Current Medications Generic Name Dose Route Start Last Admin Trade Name Freq PRN Reason Stop Dose Admin Acetaminophen 650 mg 10/27/20 22:35 10/30/20 10:12 Acetaminophen 325 Mg Tablet PO 650 mg Q6H PRN Administration Pain, Mild (Pain Scale 1-3) Atovaquone 750 mg 10/27/20 21:00 11/04/20 09:15 Atovaquone 750 Mg/5 Ml Oral.Susp PO 750 mg BID TOMY Administration Bictegravir/Emtricitabine/Tenofovir 1 tab 10/28/20 09:00 11/04/20 09:15 Bictegrav/Emtricit/Tenofov Ala 1 Tab Tablet PO 1 tab DAILY TOMY Administration Buprenorphine/Naloxone 1 film 11/04/20 09:00 11/04/20 09:24 Buprenorphine/Naloxone 8/2 Mg Film SUBLINGUAL 1 film DAILY TOMY Administration Clonidine HCl 0.1 mg 10/27/20 20:55 11/02/20 20:53 Clonidine Hcl 0.1 Mg Tablet PO 0.1 mg BID PRN Administration withdrawal Protocol Docusate Sodium 100 mg 10/27/20 20:25 Docusate Sodium 100 Mg Capsule PO DAILY PRN Constipation Enoxaparin Sodium 40 mg 10/27/20 20:30 11/03/20 21:05 Enoxaparin Sodium 40 Mg/0.4 Ml Syringe SUBCUT 40 mg Q24H TOMY Administration Fluconazole 200 mg 10/28/20 09:00 11/04/20 09:15 Fluconazole 100 Mg Tablet PO 200 mg DAILY [facility] Administration Fluticasone Propionate 1 puff 10/28/20 08:00 11/03/20 21:52 Fluticasone Propionate 100 Mcg Blst.W.Dev INHALE Not Given RBID [facility] Nafcillin Sodium 2 gm/ Sodium 100 mls @ 200 mls/hr 10/27/20 20:30 11/04/20 12:37 Chloride IV Not Given Q4H [facility] Magnesium Sulfate 2 gm in 50 mls @ 50 mls/hr 11/04/20 16:09 IV 11/04/20 17:08 ONCE ONE Insulin Glargine 20 unit 10/30/20 21:00 11/03/20 21:05 Insulin Glargine,Hum.Rec.Anlog 100 Unit/Ml 10 Ml Vial SUBCUT 20 unit BID [facility] Administration Insulin Human Lispro 0 unit 10/27/20 21:00 11/04/20 12:39 Insulin Lispro 100 Unit/Ml 3 Ml Vial SUBCUT Not Given QIDACHS [facility] Protocol Magnesium Oxide 400 mg 11/04/20 17:30 Magnesium Oxide 400 [facility] 4 mg 11/02/20 11:55 Ondansetron Hcl 4 Mg/2 Ml Vial IVPUSH ONCE PRN Nausea and Vomiting Pharmacy Consult 1 each 10/27/20 18:35 Consult Rx Perform Med Rec MISCELLANE ONCE PRN Consult order Potassium Chloride 40 meq 10/31/20 10:15 11/04/20 11:35 Potassium Chloride Packet 20 Meq Packet PO 40 meq BID [facility] Administration Sodium Chloride 3 ml 10/28/20 00:00 11/04/20 09:12 0.9 % Sodium Chloride Flush 3 Ml Syringe IVFLUSH 3 ml QSHIFT [facility] Administration Sodium Chloride 3 ml 11/02/20 16:00 11/04/20 09:12 0.9 % Sodium Chloride Flush 3 Ml Syringe IVFLUSH 3 ml QSHIFT [facility] Administration Labs CBC & Chem 7: 11/04/20 07:39 Microbiology Microbiology Results: Microbiology 10/30/20 09:53 Knee aspirate Gram Stain - Final 10/30/20 09:53 Knee aspirate Routine Culture - Final Staphylococcus aureus 10/30/20 09:53 Knee aspirate Anaerobic Culture - Final 10/30/20 09:53 Knee aspirate Gross Specimen Examination - Final 10/30/20 09:53 Knee aspirate Fluid Crystals - Final 10/30/20 09:53 Knee aspirate Joint Fluid Culture - Final 10/27/20 18:52 Blood - Venous Blood Culture - Final No growth after 5 days. 10/27/20 18:33 Blood - Venous Blood Culture - Final No growth after 5 days. 10/30/20 Unknown Knee - Aspirate Gram Stain - Final 10/30/20 Unknown Knee - Aspirate Routine Culture - Final 10/30/20 Unknown Knee - Aspirate Anaerobic Culture - Final 10/28/20 16:55 Leg - Right Gram Stain - Final 10/28/20 16:55 Leg - Right Routine Culture - Final Staphylococcus aureus 10/27/20 19:02 Urine clean catch - Clean Catch Midstream Urine Culture - Final Klebsiella pneumoniae Assessment and Plan (1) Bacteremia: Problem details: MSSA bacteremia He has cleared bacteremia Endocarditis concern still AIDS Status: Acute (2) Cellulitis of right leg: Status: Acute (3) Cellulitis: Status: Acute (4) AIDS: Problem details: Continue Biktarvy Set up [facility] Status: Acute (5) Sepsis: Status: Acute (6) Thrush, oral: Status: Acute Assessment and Plan: 55-year-old male with history of HIV/aids, hepatitis C virus, diabetes, recent admission for RLE cellulitis/MSSA bacteremia (left AMA 10/24/20) returns with ongoing pain and swelling of the right leg 1.Sepsis d/t Bacteremia BCx from 10/21 growing MSSA, BCx from 10/27 No growth. Abscess gram stain from 10/28 Kellie Persaud RLE cellulitis and possible abscess collection Echo 10/24 no vegetation fluid collection seen on US from 10/21 echo from 10/24 no vegetation Continue IV nafcillin day 9 blood cultures neg on 10/27( 5days),pain control picc line placed yesterday. 2.Abscsess of right s/p IR drainage of leg on 10/28 Spetic Knee--to OR for further drainage today 11/02 3.Diabetes, better controll: fs running lower side in 50's range hold Lantus and SSI adjusted coverage. 4.Hypomagnesemia Replaced 5.Opiate abuse clonidine prn,addiction medicine consult 6.HIV/aids resume Biktarvy,Diflucan,Mepron 7.Thrombocytopenia Chronic. Follow CBC 8.Hypokalemia--Replaced and now 3.5, wll continue to monitor level 9.Anemia Chronic. At baseline Follow CBC DVT prophylaxis-Lovenox Code status-full code
[2020-11-04 16:44] LABS: Glucose, Whole Blood 213 mg/dL (60-115)
--- NOTE | 2020-11-04 16:49 | P.PICC_ITS ---
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 Following completion of [place] Protocol the skin and soft tissues were anesthetized with 1% Lidocaine plain. Using ultrasound guidance, BASILIC vein access was obtained IN SINGLE ATTEMPT BY THIS RN. Over an 0.018 wire through peel-away sheath, a SINGLE LUMEN, 4 DIVEHI, PASV PICC line was positioned. Catheter length is 37 CM internal length, 0 CM external length, for a total trimmed length of 37 CM. The procedure was performed in ULTRASOUND 1. Tip verification was performed by Johnathon Flores with Jeremy 3CG. Tip located in SVC. Ultrasound was used to document vein patency and for needle entry. A formal ultrasound picture and cardiac rhythm strip was recorded. Vascular Compensation Manager has released the line for use and it is currently dressed with a StatLock, Tegaderm, and CHG disc. Verification has been performed for blood return and line patency. Arm Circumference: 22.5 CM Equipment: Acertiv POWER PICC SOLO Catheter Type: 4 DIVEHI SINGLE LUMEN PASV PICC Lot #: [id number]
[2020-11-04] MEDS: Potassium Chloride/H20 10 MEQ/100 ML PIGGYBACK 100 MEQ IV ×2 (16:52→18:51)
[2020-11-04] MEDS: Insulin Lispro 100 UNIT/ML 3 ML VIAL SUBCUT ×2 (17:45→21:44)
[2020-11-04] MEDS: Magnesium Oxide 400 MG TABLET PO (18:51)
[2020-11-04] MEDS: Magnesium Sulfate/H2O 2 GM/50 ML PIGGYBACK IV (19:58)
[2020-11-04 20:14] LABS: Potassium 4.4 mmol/l (3.3-5.1)
[2020-11-04 21:16] LABS: Glucose, Whole Blood 333 mg/dL (60-115)
[2020-11-04] MEDS: Enoxaparin Sodium 40 MG/0.4 ML SYRINGE SUBCUT (21:44)
[2020-11-04] MEDS: 0.9 % Sodium Chloride Flush 10 ML SYRINGE 5 ML IVFLUSH (21:44)
[2020-11-05 01:12] VITALS: BP 142/74; PULSE 95; RESP 16; TEMP 36.7; O2SAT 99
[2020-11-05] MEDS: 0.9 % Sodium Chloride Flush 3 ML SYRINGE IVFLUSH ×2 (01:59→02:09)
[2020-11-05] MEDS: Nafcillin Sodium 2 GM in 0.9 % Sodium Chloride 100 ML IV ×6 (02:00→21:14)
[2020-11-05 07:41] LABS: Anion Gap 9 (12-20); Blood Urea Nitrogen 9 mg/dL (9-16); Calcium 7.3 mg/dL (8.4-10.2); Carbon Dioxide 26 mmol/L (22-29); Chloride 98 mmol/L (96-108); Creatinine Clr Calc Pharmacy 111.7; Estimated Glomerular Filt Rate > 60; Glucose Random 142 mg/dL (60-115); Potassium 3.8 mmol/l (3.3-5.1); Sodium 129 mmol/L (135-145)
[2020-11-05 07:52] VITALS: BP 120/72; PULSE 94; RESP 16; TEMP 36.7; O2SAT 97
[2020-11-05 07:58] LABS: Glucose, Whole Blood 148 mg/dL (60-115)
[2020-11-05 09:01] LABS: Osmolality, Serum 270 mosm/kg (281-305)
[2020-11-05] MEDS: Fluconazole 100 MG TABLET 200 MG PO (09:26)
[2020-11-05] MEDS: Magnesium Oxide 400 MG TABLET PO ×2 (09:26→16:38)
[2020-11-05] MEDS: Buprenorphine/Naloxone 8/2 mg FILM 1 FILM SUBLINGUAL (09:26)
[2020-11-05] MEDS: 0.9 % Sodium Chloride Flush 10 ML SYRINGE 5 ML IVFLUSH ×2 (09:29→21:20)
[2020-11-05] MEDS: 0.9 % Sodium Chloride 1,000 ML 75 ML IVCONT (09:30)
[2020-11-05 11:00] VITALS: O2SAT 97
[2020-11-05 12:12] LABS: Glucose, Whole Blood 291 mg/dL (60-115)
[2020-11-05] MEDS: Insulin Lispro 100 UNIT/ML 3 ML VIAL SUBCUT ×3 (12:57→21:17)
[2020-11-05 13:39] LABS: Sodium 128 mmol/L (135-145)
--- NOTE | 2020-11-05 14:49 | HO.PM.IMPN ---
Subjective Subjective Date of Service: 11/06/20 Interval History: Hyponatremia, MSSA bacteremia Review of Systems Patient denies any chest pain or shortness of breath could able to move the leg-says pain is improving. Physical Exam Vital Signs: Vital Signs: Last Vital Signs Temp 98.1 F 11/05/20 07:52 Pulse 94 11/05/20 07:52 Resp 16 11/05/20 07:52 BP 120/72 11/05/20 07:52 Pulse Ox 97 11/05/20 11:00 Body Mass Index 21.7 Physio Constitutional: Not in acute distress Cvs: rrr, [id number] , no murmur res: clear to auscultation ,no rhonchii or wheezing abd: no rebound or guarding ,nt, bs present. ext pulses present , no cyanosis neuro: axo3 , nonfocal. Objective Data Current Medications Generic Name Dose Route Start Last Admin Trade Name Freq PRN Reason Stop Dose Admin Acetaminophen 650 mg 10/27/20 22:35 10/30/20 10:12 Acetaminophen 325 Mg Tablet PO 650 mg Q6H PRN Administration Pain, Mild (Pain Scale 1-3) Atovaquone 750 mg 10/27/20 21:00 11/05/20 09:34 Atovaquone 750 Mg/5 Ml Oral.Susp PO Not Given BID TOMY Bictegravir/Emtricitabine/Tenofovir 1 tab 10/28/20 09:00 11/05/20 09:26 Bictegrav/Emtricit/Tenofov Ala 1 Tab Tablet PO 1 tab DAILY TOMY Administration Buprenorphine/Naloxone 1 film 11/04/20 09:00 11/05/20 09:26 Buprenorphine/Naloxone 8/2 Mg Film SUBLINGUAL 1 film DAILY TOMY Administration Clonidine HCl 0.1 mg 10/27/20 20:55 11/02/20 20:53 Clonidine Hcl 0.1 Mg Tablet PO 0.1 mg BID PRN Administration withdrawal Protocol Docusate Sodium 100 mg 10/27/20 20:25 Docusate Sodium 100 Mg Capsule PO DAILY PRN Constipation Enoxaparin Sodium 40 mg 10/27/20 20:30 11/04/20 21:44 Enoxaparin Sodium 40 Mg/0.4 Ml Syringe SUBCUT 40 mg Q24H TOMY Administration Fluconazole 200 mg 10/28/20 09:00 11/05/20 09:26 Fluconazole 100 Mg Tablet PO 200 mg DAILY [facility] [place] Administration Fluticasone Propionate 1 puff 10/28/20 08:00 11/04/20 21:23 Fluticasone Propionate 100 Mcg Blst.W.Dev INHALE Not Given RBID [facility] [place] Nafcillin Sodium 2 gm/ Sodium 100 mls @ 200 mls/hr 10/27/20 20:30 11/05/20 13:30 Chloride IV Infused Q4H [facility] Infusion Insulin Glargine 20 unit 10/30/20 21:00 11/03/20 21:05 Insulin Glargine,Hum.Rec.Anlog 100 Unit/Ml 10 Ml Vial SUBCUT 20 unit BID [facility] [place] Administration Insulin Human Lispro 0 unit 10/27/20 21:00 11/05/20 12:57 Insulin Lispro 100 Unit/Ml 3 Ml Vial SUBCUT 6 unit QIDACHS [facility] [place] Administration Protocol Magnesium Oxide 400 mg 11/04/20 17:30 11/05/20 09:26 Magnesium Oxide 400 Mg Tablet PO 400 mg BIDPC [facility] [place] Administration Ondansetron HCl 4 mg 11/02/20 11:55 Ondansetron Hcl 4 Mg/2 Ml Vial IVPUSH ONCE PRN Nausea and Vomiting Pharmacy Consult 1 each 10/27/20 18:35 Consult Rx Perform Med Rec MISCELLANE ONCE PRN Consult order Potassium Chloride 40 meq 10/31/20 10:15 11/05/20 09:34 Potassium Chloride Packet 20 Meq Packet PO Not Given BID [facility] Sodium Chloride 3 ml 10/28/20 00:00 11/05/20 10:00 0.9 % Sodium Chloride Flush 3 Ml Syringe IVFLUSH Not Given QSHIFT [facility] [place] Sodium Chloride 3 ml 11/02/20 16:00 11/05/20 10:00 0.9 % Sodium Chloride Flush 3 Ml Syringe IVFLUSH Not Given QSHIFT [facility] [place] Sodium Chloride 5 ml 11/04/20 21:00 11/05/20 09:29 0.9 % Sodium Chloride Flush 10 Ml Syringe IVFLUSH 5 ml TID [facility] [place] Administration Labs CBC & Chem 7: 11/04/20 07:39 11/06/20 06:14 Microbiology Microbiology Results: Microbiology 10/30/20 09:53 Knee aspirate Gram Stain - Final 10/30/20 09:53 Knee aspirate Routine Culture - Final Staphylococcus aureus 10/30/20 09:53 Knee aspirate Anaerobic Culture - Final 10/30/20 09:53 Knee aspirate Gross Specimen Examination - Final 10/30/20 09:53 Knee aspirate Fluid Crystals - Final 10/30/20 09:53 Knee aspirate Joint Fluid Culture - Final 10/27/20 18:52 Blood - Venous Blood Culture - Final No growth after 5 days. 10/27/20 18:33 Blood - Venous Blood Culture - Final No growth after 5 days. 10/30/20 Unknown Knee - Aspirate Gram Stain - Final 10/30/20 Unknown Knee - Aspirate Routine Culture - Final 10/30/20 Unknown Knee - Aspirate Anaerobic Culture - Final 10/28/20 16:55 Leg - Right Gram Stain - Final 10/28/20 16:55 Leg - Right Routine Culture - Final Staphylococcus aureus 10/27/20 19:02 Urine clean catch - Clean Catch Midstream Urine Culture - Final Klebsiella pneumoniae Assessment and Plan (1) Bacteremia: Problem details: MSSA bacteremia He has cleared bacteremia Endocarditis concern still AIDS Status: Acute (2) Cellulitis of right leg: Status: Acute (3) Cellulitis: Status: Acute (4) AIDS: Problem details: Continue Biktarvy Set up [facility] Status: Acute (5) Sepsis: Status: Acute (6) Thrush, oral: Status: Acute Assessment and Plan: 55-year-old male with history of HIV/aids, hepatitis C virus, diabetes, recent admission for RLE cellulitis/MSSA bacteremia (left AMA 10/24/20) returns with ongoing pain and swelling of the right leg 1.Sepsis d/t Bacteremia BCx from 10/21 growing MSSA, BCx from 10/27 No growth. Abscess gram stain from 10/28 Staph Aurues RLE cellulitis and possible abscess collection Echo 10/24 no vegetation fluid collection seen on US from 10/21 echo from 10/24 no vegetation Continue IV nafcillin day 10 blood cultures neg on 10/27( 5days),pain control picc line placed yesterday. 2.Abscsess of right s/p IR drainage of leg on 10/28 Septic Knee--to OR for further drainage 11/02 3.Diabetes, better controll: fs seems in 200-300 range adjusted Lantus and SSI adjusted coverage. 4.Hypomagnesemia Replaced 5.Opiate abuse clonidine prn,addiction medicine consult 6.HIV/aids resume Biktarvy,Diflucan,Mepron 7.Thrombocytopenia Chronic. Follow CBC 8.Hypokalemia--Replaced and now 3.5, repleted and improved. 9.Anemia Chronic. At baseline Follow CBC DVT prophylaxis-Lovenox Code status-full code
[2020-11-05 15:22] LABS: Alanine Aminotransferase 16 U/L (0-40); Albumin Level 1.9 g/dL (3.5-5.0); Alkaline Phosphatase 141 U/L (39-117); Aspartate Amino Transferase 30 U/L (5-37); Bilirubin Direct 0.4 mg/dL (0.0-0.5); Bilirubin Total 0.4 mg/dL (0.0-1.0); Total Protein 6.4 g/dL (6.5-8.0)
[2020-11-05 15:24] VITALS: BP 134/78; PULSE 103; RESP 18; TEMP 35.6; O2SAT 99
[2020-11-05 15:30] LABS: Thyroid Stimulating Hormone 1.78 uIU/mL (0.32-4.0)
[2020-11-05 16:21] LABS: Potassium Urine Random 39.1 mmol/l
[2020-11-05 16:37] LABS: Glucose, Whole Blood 289 mg/dL (60-115)
[2020-11-05 17:38] LABS: Osmolality Urine 579 mosm/kg (373-1093)
--- NOTE | 2020-11-05 18:05 | PC.NURSE ---
With am med pass pt refused Potassium PO and mepron. Dr Marinelli aware no new orders. Fluid restriction discussed with pt, verbalizes understanding. Urine spec sent to lab, pending results.
[2020-11-05 20:15] LABS: Glucose, Whole Blood 339 mg/dL (60-115)
[2020-11-05] MEDS: Enoxaparin Sodium 40 MG/0.4 ML SYRINGE SUBCUT (21:16)
[2020-11-05] MEDS: diphenhydrAMINE HCL 25 MG TABLET PO (21:47)
[2020-11-05] MEDS: Potassium Chloride Packet 20 MEQ PACKET 40 MEQ PO (21:53)
--- NOTE | 2020-11-05 22:51 | MHC.PIE ---
p; pt asking/demanding for suboxone to help with sleep. i; dr thomas notified. new order benadryl 25 mg po prn bed [id number] e; will cont to monitor
[2020-11-06] VITALS: BP 135/76; PULSE 103; RESP 16; TEMP 37.2; O2SAT 97
[2020-11-06] MEDS: Nafcillin Sodium 2 GM in 0.9 % Sodium Chloride 100 ML IV ×5 (00:14→16:23)
[2020-11-06] MEDS: diphenhydrAMINE HCL 25 MG TABLET PO (00:29)
[2020-11-06 07:23] LABS: Anion Gap 9 (12-20); Blood Urea Nitrogen 11 mg/dL (9-16); Calcium 7.5 mg/dL (8.4-10.2); Carbon Dioxide 25 mmol/L (22-29); Chloride 98 mmol/L (96-108); Creatinine Clr Calc Pharmacy 103.7; Estimated Glomerular Filt Rate > 60; Glucose Random 152 mg/dL (60-115); Potassium 4.1 mmol/l (3.3-5.1); Sodium 128 mmol/L (135-145)
[2020-11-06 08:00] VITALS: BP 131/81; PULSE 103; RESP 15; TEMP 37.1; O2SAT 99
[2020-11-06 08:33] LABS: Glucose, Whole Blood 153 mg/dL (60-115)
[2020-11-06] MEDS: Magnesium Oxide 400 MG TABLET PO (08:40)
[2020-11-06] MEDS: Buprenorphine/Naloxone 8/2 mg FILM 1 FILM SUBLINGUAL (08:51)
[2020-11-06] MEDS: Atovaquone 750 MG/5 ML ORAL.SUSP PO (08:51)
[2020-11-06] MEDS: Fluconazole 100 MG TABLET 200 MG PO (08:51)
[2020-11-06] MEDS: Potassium Chloride Packet 20 MEQ PACKET 40 MEQ PO (08:51)
[2020-11-06] MEDS: Insulin Glargine,Hum.rec.anlog 100 UNIT/ML 10 ML VIAL 10 UNIT SUBCUT (08:52)
[2020-11-06 11:00] VITALS: O2SAT 98
[2020-11-06] MEDS: 0.9 % Sodium Chloride Flush 10 ML SYRINGE 5 ML IVFLUSH (11:04)
[2020-11-06] MEDS: 0.9 % Sodium Chloride Flush 3 ML SYRINGE IVFLUSH ×3 (11:04→16:23)
[2020-11-06] MEDS: Insulin Lispro 100 UNIT/ML 3 ML VIAL SUBCUT ×2 (11:53→16:23)
[2020-11-06 12:04] LABS: Glucose, Whole Blood 313 mg/dL (60-115)
--- NOTE | 2020-11-06 15:12 | P.DS_ITS ---
DS: Providers Provider Date of Service: 11/06/20 Date of admission: 10/27/20 20:25 Date of discharge: 11/06/20 Primary care physician: Unknown Physician Consults: 10/27/20 20:44 Addiction Medicine Routine Consulting Provider: Macrina Noel Reason for consultation: opiate abuse Consult to General Surgery Routine Consulting Provider: Cathie Roper Reason for consultation: RLE cellulitis/swelling with ? fluid collection Has provider been notified: No 10/28/20 09:10 Consult to Orthopedics Routine Consulting Provider: Basia Shaffer Reason for consultation: fluid collection right lower leg ? abscess Has provider been notified: No 10/29/20 10:20 Consult to Infectious Diseases Routine Consulting Provider: Karina Max Reason for consultation: MSSA bacteremia Has provider been notified: No 11/05/20 14:41 Consult to Nephrology Routine Consulting Provider: Yonathan Lambert Reason for consultation: hyponatremia Has provider been notified: No DS: Diagnosis Discharge Diagnosis (1) Bacteremia: Status: Acute Problem details: MSSA bacteremia He has cleared bacteremia Endocarditis concern still AIDS (2) Cellulitis of right leg: Status: Acute (3) Cellulitis: Status: Acute (4) AIDS: Status: Acute Problem details: Continue Biktarvy Set up [facility] (5) Sepsis: Status: Acute (6) Thrush, oral: Status: Acute DS: Medications Discharge Medications Home Medications: Home Medications Medication Instructions Recorded Confirmed [id number] ala 1 tab PO DAILY 10/21/20 10/27/20 [Biktarvy] buprenorphine-naloxone [Suboxone] 1 strip SUBLINGUAL BID 10/21/20 10/21/20 fluticasone propionate [Flovent 1 puff PO BID 10/21/20 10/27/20 HFA] insulin aspart U-100 [Novolog 0 unit SUBCUT TID 10/21/20 10/27/20 Flexpen U-100 Insulin] insulin glargine [Lantus Solostar 18 unit SUBCUT BID 10/21/20 10/27/20 U-100 Insulin] Previous Rx's Medication Instructions Recorded buprenorphine-naloxone [Suboxone] 1 film SUBLINGUAL DAILY #14 ea 11/04/20 clonidine HCl 0.1 mg PO BID PRN #10 tab 11/06/20 nafcillin 2 g IV Q4H #52 ea 11/06/20 DS: Summary Hospital Course Hospital Course: 55-year-old male with history of hepatitis-B, hepatitis-C, diabetes, HIV/aids who was recently admitted for MSSA bacteremia/right lower extremity cellulitis. Unfortunately left against medical advice on October 24. He returns today with ongoing pain of his right leg and difficulty ambulating. In addition he reports fever. He was noted to have temperature 100.4 degrees. Lab work was similar to previous. He underwent ultrasound of the right lower extremity which is pending at this time. He was started on IV Zosyn and the decision was made to readmit him for further management. Hospital Course problem by section: 55-year-old male with history of HIV/aids, hepatitis C virus, diabetes, recent admission for RLE cellulitis/MSSA bacteremia (left AMA 10/24/20) returns with ongoing pain and swelling of the right leg 1.Sepsis due to Bacteremia BCx from 10/21 growing MSSA, BCx from 10/27 No growth. Abscess gram stain from 10/28 Staph Aurues RLE cellulitis and possible abscess collection Echo 10/24 no vegetation,fluid collection seen on US from 10/21,blood cultures neg on 10/27( 5days). In addition Abscsess of right s/p IR drainage of leg on 10/28 Septic Knee--to OR for further drainage 11/02-ortho did irrigation snd lavage was done. on IV nafcillin day 11-PICC line was placed and patient will need antibiotics until as per Infectious Disease. Patient is to follow-up with Ortho and ID out patiently in 2 weeks. 2.Diabetes, better controll: fs seems in 200 range Continue Lantus and SSI adjusted coverage. 4.Hypomagnesemia: Repleted and improved. Hypokalemia also repleted and improved. Will give limited potassium supply for 2 days and monitor renal function and electrolytes outpatient. Hyponatremia : Thought to be probably SIADH component: Fluid restriction 1200 mL per day and also will add urea for 3days:nitor renal function and electrolytes outpatient. Consider nephrology outpatient follow-up if continue to have electrolytic abnormalities.. 5.Opiate abuse: clonidine prn,addiction medicine consult done: patient was also seen by psych because of opioid use: Recommended Suboxone 8mg QD--prescription sent to pharmacy as requested by SNF as per psych. Patient already has follow up MAT appt in place at [facility] to continue treatment 6.HIV/aids resume Karlo Wilson Mepron, patient is to follow up outpatient with infectious Disease. 7.anemia/Thrombocytopenia Chronic. Follow CBC, consider outpatient hematology evaluation as needed. Time Spent with Patient Discharge coordination time: Greater than 30 minutes Physical Exam Vital Signs: Vital Signs: Last Vital Signs Temp 98.8 F 11/06/20 08:00 Pulse 103 H 11/06/20 08:00 Resp 15 11/06/20 08:00 BP 131/81 11/06/20 08:00 Pulse Ox 98 11/06/20 11:00 Body Mass Index 21.7 Physical exam: Constitutional: [place]itanian-speaking male, not in acute distress Cvs: rrr, [id number] , no murmur res: clear to auscultation ,no rhonchii or wheezing abd: no rebound or guarding ,nt, bs present. ext pulses present , no cyanosis Right knee: Range of motion is significantly better, no leg pain, swelling seems to be improved significantly also. neuro: axo3 , nonfocal. DS: Data Data Completed and Pending Labs on day of discharge: Laboratory Tests 10/27/20 10/27/20 10/27/20 18:32 18:32 18:32 WBC 8.1 RBC 3.66 L Hgb 10.7 L Hct 31.0 L MCV 84.7 MCH 29.2 MCHC 34.5 RDW 13.9 Plt Count TNP MPV 11.3 Immature Gran % (Auto) 0.6 H Neut % (Auto) 83.7 H Lymph % (Auto) 9.4 L [place] % (Auto) 6.2 Eos % (Auto) 0.0 Baso % (Auto) 0.1 Lymph # (Auto) 0.8 L [place] # (Auto) 0.5 Eos # (Auto) 0.0 Baso # (Auto) 0.0 Abs Immat Gran (auto) 0.05 H Absolute Neuts (auto) 6.8 Absolute Nucleated RBC 0.000 Nucleated RBC % (auto) 0.0 ESR PT INR Hold Blue Top SEE NOTE VBG pH VBG pCO2 VBG pO2 VBG HCO3 VBG O2 Saturation VBG Base Excess Sodium 131 L Potassium 3.4 Chloride 97 Carbon Dioxide 27 Anion Gap 10 L BUN 13 Creatinine 1.04 Estim Creat Clear Calc 69.8 Estimated GFR > 60 POC Glucose Random Glucose 373 H* Osmolality Lactic Acid Calcium 7.8 L Magnesium 1.4 L* Ferritin 515 H Total Bilirubin 0.8 Direct Bilirubin 0.7 H AST 32 D ALT 19 Alkaline Phosphatase 139 H D Total Creatine Kinase 80 Troponin I High Sens C-Reactive Protein 4.38 H B-Natriuretic Peptide Total Protein 7.1 Albumin 2.4 L D Procalcitonin TSH Urine Color Urine Appearance Urine pH Ur Specific [place] Urine Protein Urine Glucose (UA) Urine Ketones Urine Blood Urine Nitrite Ur Leukocyte Esterase Urine RBC Urine WBC Ur Squamous Epith Cells Urine Bacteria Urine Osmolality Ur Random Sodium Ur Random Potassium Ur Random Chloride Urine Opiates Screen Ur Barbiturates Screen Ur Phencyclidine Scrn Ur Amphetamines Screen U Benzodiazepines Scrn Urine Cocaine Screen U Marijuana (THC) Screen Acetone, Qual Lymphocyte Subset Cmmnt Total Lymphocytes % CD3 Cells Absolute CD3 Count % CD4 Cells Absolute CD4 Count CD4/CD8 Ratio % CD8 Cells Absolute CD8 Count COVID-19 (THEA) COVID-19 Clin Com 10/27/20 10/27/20 10/27/20 18:32 18:32 18:32 WBC RBC Hgb Hct MCV MCH MCHC RDW Plt Count MPV Immature Gran % (Auto) Neut % (Auto) Lymph % (Auto) [place] % (Auto) Eos % (Auto) Baso % (Auto) Lymph # (Auto) [place] # (Auto) Eos # (Auto) Baso # (Auto) Abs Immat Gran (auto) Absolute Neuts (auto) Absolute Nucleated RBC Nucleated RBC % (auto) ESR PT INR Hold Blue Top VBG pH VBG pCO2 VBG pO2 VBG HCO3 VBG O2 Saturation VBG Base Excess Sodium Potassium Chloride Carbon Dioxide Anion Gap BUN Creatinine Estim Creat Clear Calc Estimated GFR POC Glucose Random Glucose Osmolality Lactic Acid 1.5 Calcium Magnesium Ferritin Total Bilirubin Direct Bilirubin AST ALT Alkaline Phosphatase Total Creatine Kinase Troponin I High Sens C-Reactive Protein B-Natriuretic Peptide 90 Total Protein Albumin Procalcitonin 0.33 TSH Urine Color Urine Appearance Urine pH Ur Specific [place] Urine Protein Urine Glucose (UA) Urine Ketones Urine Blood Urine Nitrite Ur Leukocyte Esterase Urine RBC Urine WBC Ur Squamous Epith Cells Urine Bacteria Urine Osmolality Ur Random Sodium Ur Random Potassium Ur Random Chloride Urine Opiates Screen Ur Barbiturates Screen Ur Phencyclidine Scrn Ur Amphetamines Screen U Benzodiazepines Scrn Urine Cocaine Screen U Marijuana (THC) Screen Acetone, Qual Lymphocyte Subset Cmmnt Total Lymphocytes % CD3 Cells Absolute CD3 Count % CD4 Cells Absolute CD4 Count CD4/CD8 Ratio % CD8 Cells Absolute CD8 Count COVID-19 (THEA) COVID-19 depict Com 10/27/20 10/27/20 10/27/20 18:32 18:32 18:32 WBC RBC Hgb Hct MCV MCH MCHC RDW Plt Count MPV Immature Gran % (Auto) Neut % (Auto) Lymph % (Auto) [place] % (Auto) Eos % (Auto) Baso % (Auto) Lymph # (Auto) [place] # (Auto) Eos # (Auto) Baso # (Auto) Abs Immat Gran (auto) Absolute Neuts (auto) Absolute Nucleated RBC Nucleated RBC % (auto) ESR 96 H PT INR Hold Blue Top VBG pH VBG pCO2 VBG pO2 VBG HCO3 VBG O2 Saturation VBG Base Excess Sodium Potassium Chloride Carbon Dioxide Anion Gap BUN Creatinine Estim Creat Clear Calc Estimated GFR POC Glucose Random Glucose Osmolality Lactic Acid Calcium Magnesium Ferritin Total Bilirubin Direct Bilirubin AST ALT Alkaline Phosphatase Total Creatine Kinase Troponin I High Sens 6.4 C-Reactive Protein B-Natriuretic Peptide Total Protein Albumin Procalcitonin TSH Urine Color Urine Appearance Urine pH Ur Specific [place] Urine Protein Urine Glucose (UA) Urine Ketones Urine Blood Urine Nitrite Ur Leukocyte Esterase Urine RBC Urine WBC Ur Squamous Epith Cells Urine Bacteria Urine Osmolality Ur Random Sodium Ur Random Potassium Ur Random Chloride Urine Opiates Screen Ur Barbiturates Screen Ur Phencyclidine Scrn Ur Amphetamines Screen U Benzodiazepines Scrn Urine Cocaine Screen U Marijuana (THC) Screen Acetone, Qual Lymphocyte Subset Cmmnt TNP Total Lymphocytes 443 L % CD3 Cells 91 H Absolute CD3 Count 406 L % CD4 Cells 13 L Absolute CD4 Count 57 L CD4/CD8 Ratio 0.16 L % CD8 Cells 79 H Absolute CD8 Count 351 COVID-19 (THEA) COVID-19 depict Com 10/27/20 10/27/20 10/27/20 18:32 18:32 18:33 WBC RBC Hgb Hct MCV MCH MCHC RDW Plt Count MPV Immature Gran % (Auto) Neut % (Auto) Lymph % (Auto) [place] % (Auto) Eos % (Auto) Baso % (Auto) Lymph # (Auto) [place] # (Auto) Eos # (Auto) Baso # (Auto) Abs Immat Gran (auto) Absolute Neuts (auto) Absolute Nucleated RBC Nucleated RBC % (auto) ESR PT INR Hold Blue Top VBG pH 7.40 VBG pCO2 48 VBG pO2 44 VBG HCO3 2 VBG O2 Saturation 81.4 VBG Base Excess 3.8 Sodium Potassium Chloride Carbon Dioxide Anion Gap BUN Creatinine Estim Creat Clear Calc Estimated GFR POC Glucose Random Glucose Osmolality Lactic Acid Calcium Magnesium Ferritin Total Bilirubin Direct Bilirubin AST ALT Alkaline Phosphatase Total Creatine Kinase Troponin I High Sens C-Reactive Protein B-Natriuretic Peptide Total Protein Albumin Procalcitonin TSH Urine Color Urine Appearance Urine pH Ur Specific [place] Urine Protein Urine Glucose (UA) Urine Ketones Urine Blood Urine Nitrite Ur Leukocyte Esterase Urine RBC Urine WBC Ur Squamous Epith Cells Urine Bacteria Urine Osmolality Ur Random Sodium Ur Random Potassium Ur Random Chloride Urine Opiates Screen Ur Barbiturates Screen Ur Phencyclidine Scrn Ur Amphetamines Screen U Benzodiazepines Scrn Urine Cocaine Screen U Marijuana (THC) Screen Acetone, Qual Negative Lymphocyte Subset Cmmnt Total Lymphocytes % CD3 Cells Absolute CD3 Count % CD4 Cells Absolute CD4 Count CD4/CD8 Ratio % CD8 Cells Absolute CD8 Count COVID-19 (THEA) Negative COVID-19 Clin Com See Note 10/27/20 10/27/20 10/27/20 18:36 18:36 18:40 WBC RBC Hgb Hct MCV MCH MCHC RDW Plt Count MPV Immature Gran % (Auto) Neut % (Auto) Lymph % (Auto) [place] % (Auto) Eos % (Auto) Baso % (Auto) Lymph # (Auto) [place] # (Auto) Eos # (Auto) Baso # (Auto) Abs Immat Gran (auto) Absolute Neuts (auto) Absolute Nucleated RBC Nucleated RBC % (auto) ESR PT INR Hold Blue Top VBG pH VBG pCO2 VBG pO2 VBG HCO3 VBG O2 Saturation VBG Base Excess Sodium Potassium Chloride Carbon Dioxide Anion Gap BUN Creatinine Estim Creat Clear Calc Estimated GFR POC Glucose 352 H* Random Glucose Osmolality Lactic Acid Calcium Magnesium Ferritin Total Bilirubin Direct Bilirubin AST ALT Alkaline Phosphatase Total Creatine Kinase Troponin I High Sens C-Reactive Protein B-Natriuretic Peptide Total Protein Albumin Procalcitonin TSH Urine Color YELLOW Urine Appearance CLEAR Urine pH 6.0 Ur Specific [place] 1.025 Urine Protein TRACE Urine Glucose (UA) >=1000 H Urine Ketones NEG Urine Blood TRACE Urine Nitrite POS H Ur Leukocyte Esterase NEG Urine RBC 0 Urine WBC 0 Ur Squamous Epith Cells 1+ Urine Bacteria NONE Urine Osmolality Ur Random Sodium Ur Random Potassium Ur Random Chloride Urine Opiates Screen POSITIVE H Ur Barbiturates Screen Not Detected Ur Phencyclidine Scrn Not Detected Ur Amphetamines Screen Not Detected U Benzodiazepines Scrn Not Detected Urine Cocaine Screen Not Detected U Marijuana (THC) Screen Not Detected Acetone, Qual Lymphocyte Subset Cmmnt Total Lymphocytes % CD3 Cells Absolute CD3 Count % CD4 Cells Absolute CD4 Count CD4/CD8 Ratio % CD8 Cells Absolute CD8 Count COVID-19 (THEA) COVID-19 Clin Com 10/27/20 10/28/20 10/28/20 21:52 05:49 05:49 WBC 7.1 RBC 3.29 L Hgb 9.5 L Hct 27.3 L MCV 83.0 MCH 28.9 MCHC 34.8 RDW 13.9 Plt Count 102 L D MPV 9.0 L Immature Gran % (Auto) 0.7 H Neut % (Auto) 81.4 H Lymph % (Auto) 10.0 L [place] % (Auto) 7.8 Eos % (Auto) 0.0 Baso % (Auto) 0.1 Lymph # (Auto) 0.7 L [place] # (Auto) 0.6 Eos # (Auto) 0.0 Baso # (Auto) 0.0 Abs Immat Gran (auto) 0.05 H Absolute Neuts (auto) 5.8 Absolute Nucleated RBC 0.000 Nucleated RBC % (auto) 0.0 ESR PT INR Hold Blue Top VBG pH VBG pCO2 VBG pO2 VBG HCO3 VBG O2 Saturation VBG Base Excess Sodium 131 L Potassium 3.0 L Chloride 99 Carbon Dioxide 26 Anion Gap 9 L BUN 11 Creatinine 0.72 Estim Creat Clear Calc 100.8 Estimated GFR > 60 POC Glucose 276 H Random Glucose 103 D Osmolality Lactic Acid Calcium 7.1 L D Magnesium 1.8 Ferritin Total Bilirubin Direct Bilirubin AST ALT Alkaline Phosphatase Total Creatine Kinase Troponin I High Sens C-Reactive Protein B-Natriuretic Peptide Total Protein Albumin Procalcitonin TSH Urine Color Urine Appearance Urine pH Ur Specific [place] Urine Protein Urine Glucose (UA) Urine Ketones Urine Blood Urine Nitrite Ur Leukocyte Esterase Urine RBC Urine WBC Ur Squamous Epith Cells Urine Bacteria Urine Osmolality Ur Random Sodium Ur Random Potassium Ur Random Chloride Urine Opiates Screen Ur Barbiturates Screen Ur Phencyclidine Scrn Ur Amphetamines Screen U Benzodiazepines Scrn Urine Cocaine Screen U Marijuana (THC) Screen Acetone, Qual Lymphocyte Subset Cmmnt Total Lymphocytes % CD3 Cells Absolute CD3 Count % CD4 Cells Absolute CD4 Count CD4/CD8 Ratio % CD8 Cells Absolute CD8 Count COVID-19 (THEA) COVID-19 [employer] 10/28/20 10/28/20 10/28/20 07:17 17:16 20:20 WBC RBC Hgb Hct MCV MCH MCHC RDW Plt Count MPV Immature Gran % (Auto) Neut % (Auto) Lymph % (Auto) [place] % (Auto) Eos % (Auto) Baso % (Auto) Lymph # (Auto) [place] # (Auto) Eos # (Auto) Baso # (Auto) Abs Immat Gran (auto) Absolute Neuts (auto) Absolute Nucleated RBC Nucleated RBC % (auto) ESR PT 20.1 H INR 1.7 H Hold Blue Top VBG pH VBG pCO2 VBG pO2 VBG HCO3 VBG O2 Saturation VBG Base Excess Sodium Potassium Chloride Carbon Dioxide Anion Gap BUN Creatinine Estim Creat Clear Calc Estimated GFR POC Glucose 169 H 155 H Random Glucose Osmolality Lactic Acid Calcium Magnesium Ferritin Total Bilirubin Direct Bilirubin AST ALT Alkaline Phosphatase Total Creatine Kinase Troponin I High Sens C-Reactive Protein B-Natriuretic Peptide Total Protein Albumin Procalcitonin TSH Urine Color Urine Appearance Urine pH Ur Specific [place] Urine Protein Urine Glucose (UA) Urine Ketones Urine Blood Urine Nitrite Ur Leukocyte Esterase Urine RBC Urine WBC Ur Squamous Epith Cells Urine Bacteria Urine Osmolality Ur Random Sodium Ur Random Potassium Ur Random Chloride Urine Opiates Screen Ur Barbiturates Screen Ur Phencyclidine Scrn Ur Amphetamines Screen U Benzodiazepines Scrn Urine Cocaine Screen U Marijuana (THC) Screen Acetone, Qual Lymphocyte Subset Cmmnt Total Lymphocytes % CD3 Cells Absolute CD3 Count % CD4 Cells Absolute CD4 Count CD4/CD8 Ratio % CD8 Cells Absolute CD8 Count COVID-19 (THEA) COVID-19 [employer] 10/28/20 10/29/20 10/29/20 21:06 06:17 06:17 WBC 7.1 RBC 3.52 L Hgb 10.0 L Hct 29.3 L MCV 83.2 MCH 28.4 MCHC 34.1 RDW 13.8 Plt Count TNP MPV 9.9 Immature Gran % (Auto) Neut % (Auto) Lymph % (Auto) [place] % (Auto) Eos % (Auto) Baso % (Auto) Lymph # (Auto) [place] # (Auto) Eos # (Auto) Baso # (Auto) Abs Immat Gran (auto) Absolute Neuts (auto) Absolute Nucleated RBC 0.000 Nucleated RBC % (auto) 0.0 ESR PT INR Hold Blue Top VBG pH VBG pCO2 VBG pO2 VBG HCO3 VBG O2 Saturation VBG Base Excess Sodium 132 L Potassium 3.0 L Chloride 97 Carbon Dioxide 32 H Anion Gap 6 L BUN 11 Creatinine 0.70 Estim Creat Clear Calc 103.7 Estimated GFR > 60 POC Glucose 241 H Random Glucose 218 H D Osmolality Lactic Acid Calcium 7.3 L Magnesium Ferritin Total Bilirubin Direct Bilirubin AST ALT Alkaline Phosphatase Total Creatine Kinase Troponin I High Sens C-Reactive Protein B-Natriuretic Peptide Total Protein Albumin Procalcitonin TSH Urine Color Urine Appearance Urine pH Ur Specific [place] Urine Protein Urine Glucose (UA) Urine Ketones Urine Blood Urine Nitrite Ur Leukocyte Esterase Urine RBC Urine WBC Ur Squamous Epith Cells Urine Bacteria Urine Osmolality Ur Random Sodium Ur Random Potassium Ur Random Chloride Urine Opiates Screen Ur Barbiturates Screen Ur Phencyclidine Scrn Ur Amphetamines Screen U Benzodiazepines Scrn Urine Cocaine Screen U Marijuana (THC) Screen Acetone, Qual Lymphocyte Subset Cmmnt Total Lymphocytes % CD3 Cells Absolute CD3 Count % CD4 Cells Absolute CD4 Count CD4/CD8 Ratio % CD8 Cells Absolute CD8 Count COVID-19 (THEA) COVID-19 Clin Com 10/29/20 10/29/20 10/29/20 07:25 11:15 16:38 WBC RBC Hgb Hct MCV MCH MCHC RDW Plt Count MPV Immature Gran % (Auto) Neut % (Auto) Lymph % (Auto) [place] % (Auto) Eos % (Auto) Baso % (Auto) Lymph # (Auto) [place] # (Auto) Eos # (Auto) Baso # (Auto) Abs Immat Gran (auto) Absolute Neuts (auto) Absolute Nucleated RBC Nucleated RBC % (auto) ESR PT INR Hold Blue Top VBG pH VBG pCO2 VBG pO2 VBG HCO3 VBG O2 Saturation VBG Base Excess Sodium Potassium Chloride Carbon Dioxide Anion Gap BUN Creatinine Estim Creat Clear Calc Estimated GFR POC Glucose 197 H 389 H* 244 H Random Glucose Osmolality Lactic Acid Calcium Magnesium Ferritin Total Bilirubin Direct Bilirubin AST ALT Alkaline Phosphatase Total Creatine Kinase Troponin I High Sens C-Reactive Protein B-Natriuretic Peptide Total Protein Albumin Procalcitonin TSH Urine Color Urine Appearance Urine pH Ur Specific [place] Urine Protein Urine Glucose (UA) Urine Ketones Urine Blood Urine Nitrite Ur Leukocyte Esterase Urine RBC Urine WBC Ur Squamous Epith Cells Urine Bacteria Urine Osmolality Ur Random Sodium Ur Random Potassium Ur Random Chloride Urine Opiates Screen Ur Barbiturates Screen Ur Phencyclidine Scrn Ur Amphetamines Screen U Benzodiazepines Scrn Urine Cocaine Screen U Marijuana (THC) Screen Acetone, Qual Lymphocyte Subset Cmmnt Total Lymphocytes % CD3 Cells Absolute CD3 Count % CD4 Cells Absolute CD4 Count CD4/CD8 Ratio % CD8 Cells Absolute CD8 Count COVID-19 (THEA) COVID-19 [employer] 10/29/20 10/30/20 10/30/20 20:38 08:14 12:12 WBC RBC Hgb Hct MCV MCH MCHC RDW Plt Count MPV Immature Gran % (Auto) Neut % (Auto) Lymph % (Auto) [place] % (Auto) Eos % (Auto) Baso % (Auto) Lymph # (Auto) [place] # (Auto) Eos # (Auto) Baso # (Auto) Abs Immat Gran (auto) Absolute Neuts (auto) Absolute Nucleated RBC Nucleated RBC % (auto) ESR PT INR Hold Blue Top VBG pH VBG pCO2 VBG pO2 VBG HCO3 VBG O2 Saturation VBG Base Excess Sodium Potassium Chloride Carbon Dioxide Anion Gap BUN Creatinine Estim Creat Clear Calc Estimated GFR POC Glucose 263 H 176 H 212 H Random Glucose Osmolality Lactic Acid Calcium Magnesium Ferritin Total Bilirubin Direct Bilirubin AST ALT Alkaline Phosphatase Total Creatine Kinase Troponin I High Sens C-Reactive Protein B-Natriuretic Peptide Total Protein Albumin Procalcitonin TSH Urine Color Urine Appearance Urine pH Ur Specific [place] Urine Protein Urine Glucose (UA) Urine Ketones Urine Blood Urine Nitrite Ur Leukocyte Esterase Urine RBC Urine WBC Ur Squamous Epith Cells Urine Bacteria Urine Osmolality Ur Random Sodium Ur Random Potassium Ur Random Chloride Urine Opiates Screen Ur Barbiturates Screen Ur Phencyclidine Scrn Ur Amphetamines Screen U Benzodiazepines Scrn Urine Cocaine Screen U Marijuana (THC) Screen Acetone, Qual Lymphocyte Subset Cmmnt Total Lymphocytes % CD3 Cells Absolute CD3 Count % CD4 Cells Absolute CD4 Count CD4/CD8 Ratio % CD8 Cells Absolute CD8 Count COVID-19 (THEA) COVID-19 [employer] 10/30/20 10/30/20 10/31/20 16:10 20:58 07:15 WBC RBC Hgb Hct MCV MCH MCHC RDW Plt Count MPV Immature Gran % (Auto) Neut % (Auto) Lymph % (Auto) [place] % (Auto) Eos % (Auto) Baso % (Auto) Lymph # (Auto) [place] # (Auto) Eos # (Auto) Baso # (Auto) Abs Immat Gran (auto) Absolute Neuts (auto) Absolute Nucleated RBC Nucleated RBC % (auto) ESR PT INR Hold Blue Top VBG pH VBG pCO2 VBG pO2 VBG HCO3 VBG O2 Saturation VBG Base Excess Sodium Potassium Chloride Carbon Dioxide Anion Gap BUN Creatinine Estim Creat Clear Calc Estimated GFR POC Glucose 78 108 84 Random Glucose Osmolality Lactic Acid Calcium Magnesium Ferritin Total Bilirubin Direct Bilirubin AST ALT Alkaline Phosphatase Total Creatine Kinase Troponin I High Sens C-Reactive Protein B-Natriuretic Peptide Total Protein Albumin Procalcitonin TSH Urine Color Urine Appearance Urine pH Ur Specific [place] Urine Protein Urine Glucose (UA) Urine Ketones Urine Blood Urine Nitrite Ur Leukocyte Esterase Urine RBC Urine WBC Ur Squamous Epith Cells Urine Bacteria Urine Osmolality Ur Random Sodium Ur Random Potassium Ur Random Chloride Urine Opiates Screen Ur Barbiturates Screen Ur Phencyclidine Scrn Ur Amphetamines Screen U Benzodiazepines Scrn Urine Cocaine Screen U Marijuana (THC) Screen Acetone, Qual Lymphocyte Subset Cmmnt Total Lymphocytes % CD3 Cells Absolute CD3 Count % CD4 Cells Absolute CD4 Count CD4/CD8 Ratio % CD8 Cells Absolute CD8 Count COVID-19 (THEA) COVID-19 Clin Com 10/31/20 10/31/20 10/31/20 08:51 08:51 11:31 WBC 7.4 RBC 3.52 L Hgb 10.0 L Hct 29.0 L MCV 82.4 MCH 28.4 MCHC 34.5 RDW 14.3 Plt Count 140 L D MPV 10.0 Immature Gran % (Auto) Neut % (Auto) Lymph % (Auto) [place] % (Auto) Eos % (Auto) Baso % (Auto) Lymph # (Auto) [place] # (Auto) Eos # (Auto) Baso # (Auto) Abs Immat Gran (auto) Absolute Neuts (auto) Absolute Nucleated RBC 0.000 Nucleated RBC % (auto) 0.0 ESR PT INR Hold Blue Top VBG pH VBG pCO2 VBG pO2 VBG HCO3 VBG O2 Saturation VBG Base Excess Sodium 134 L Potassium 2.4 L* Chloride 98 Carbon Dioxide 29 Anion Gap 9 L BUN 10 Creatinine 0.60 Estim Creat Clear Calc 121.0 Estimated GFR > 60 POC Glucose 106 Random Glucose 85 D Osmolality Lactic Acid Calcium 7.4 L Magnesium Ferritin Total Bilirubin Direct Bilirubin AST ALT Alkaline Phosphatase Total Creatine Kinase Troponin I High Sens C-Reactive Protein B-Natriuretic Peptide Total Protein Albumin Procalcitonin TSH Urine Color Urine Appearance Urine pH Ur Specific [place] Urine Protein Urine Glucose (UA) Urine Ketones Urine Blood Urine Nitrite Ur Leukocyte Esterase Urine RBC Urine WBC Ur Squamous Epith Cells Urine Bacteria Urine Osmolality Ur Random Sodium Ur Random Potassium Ur Random Chloride Urine Opiates Screen Ur Barbiturates Screen Ur Phencyclidine Scrn Ur Amphetamines Screen U Benzodiazepines Scrn Urine Cocaine Screen U Marijuana (THC) Screen Acetone, Qual Lymphocyte Subset Cmmnt Total Lymphocytes % CD3 Cells Absolute CD3 Count % CD4 Cells Absolute CD4 Count CD4/CD8 Ratio % CD8 Cells Absolute CD8 Count COVID-19 (THEA) COVID-19 depict Com 10/31/20 10/31/20 10/31/20 13:46 15:52 17:02 WBC RBC Hgb Hct MCV MCH MCHC RDW Plt Count MPV Immature Gran % (Auto) Neut % (Auto) Lymph % (Auto) [place] % (Auto) Eos % (Auto) Baso % (Auto) Lymph # (Auto) [place] # (Auto) Eos # (Auto) Baso # (Auto) Abs Immat Gran (auto) Absolute Neuts (auto) Absolute Nucleated RBC Nucleated RBC % (auto) ESR PT INR Hold Blue Top VBG pH VBG pCO2 VBG pO2 VBG HCO3 VBG O2 Saturation VBG Base Excess Sodium 133 L Potassium 3.1 L D Chloride 99 Carbon Dioxide 29 Anion Gap 8 L BUN Creatinine Estim Creat Clear Calc Estimated GFR POC Glucose 70 176 H Random Glucose Osmolality Lactic Acid Calcium Magnesium Ferritin Total Bilirubin Direct Bilirubin AST ALT Alkaline Phosphatase Total Creatine Kinase Troponin I High Sens C-Reactive Protein B-Natriuretic Peptide Total Protein Albumin Procalcitonin TSH Urine Color Urine Appearance Urine pH Ur Specific [place] Urine Protein Urine Glucose (UA) Urine Ketones Urine Blood Urine Nitrite Ur Leukocyte Esterase Urine RBC Urine WBC Ur Squamous Epith Cells Urine Bacteria Urine Osmolality Ur Random Sodium Ur Random Potassium Ur Random Chloride Urine Opiates Screen Ur Barbiturates Screen Ur Phencyclidine Scrn Ur Amphetamines Screen U Benzodiazepines Scrn Urine Cocaine Screen U Marijuana (THC) Screen Acetone, Qual Lymphocyte Subset Cmmnt Total Lymphocytes % CD3 Cells Absolute CD3 Count % CD4 Cells Absolute CD4 Count CD4/CD8 Ratio % CD8 Cells Absolute CD8 Count COVID-19 (THEA) COVID-19 depict Com 01/11/21 01/12/21 01/12/21 20:41 06:02 07:18 WBC RBC Hgb Hct MCV MCH MCHC RDW Plt Count MPV Immature Gran % (Auto) Neut % (Auto) Lymph % (Auto) [place] % (Auto) Eos % (Auto) Baso % (Auto) Lymph # (Auto) [place] # (Auto) Eos # (Auto) Baso # (Auto) Abs Immat Gran (auto) Absolute Neuts (auto) Absolute Nucleated RBC Nucleated RBC % (auto) ESR PT INR Hold Blue Top VBG pH VBG pCO2 VBG pO2 VBG HCO3 VBG O2 Saturation VBG Base Excess Sodium 134 L Potassium 2.7 L Chloride 100 Carbon Dioxide 25 Anion Gap 12 BUN 13 Creatinine 0.67 Estim Creat Clear Calc 108.3 Estimated GFR > 60 POC Glucose 201 H 88 Random Glucose 71 Osmolality Lactic Acid Calcium 7.3 L Magnesium Ferritin Total Bilirubin Direct Bilirubin AST ALT Alkaline Phosphatase Total Creatine Kinase Troponin I High Sens C-Reactive Protein B-Natriuretic Peptide Total Protein Albumin Procalcitonin TSH Urine Color Urine Appearance Urine pH Ur Specific [place] Urine Protein Urine Glucose (UA) Urine Ketones Urine Blood Urine Nitrite Ur Leukocyte Esterase Urine RBC Urine WBC Ur Squamous Epith Cells Urine Bacteria Urine Osmolality Ur Random Sodium Ur Random Potassium Ur Random Chloride Urine Opiates Screen Ur Barbiturates Screen Ur Phencyclidine Scrn Ur Amphetamines Screen U Benzodiazepines Scrn Urine Cocaine Screen U Marijuana (THC) Screen Acetone, Qual Lymphocyte Subset Cmmnt Total Lymphocytes % CD3 Cells Absolute CD3 Count % CD4 Cells Absolute CD4 Count CD4/CD8 Ratio % CD8 Cells Absolute CD8 Count COVID-19 (THEA) COVID-19 Clin [facility] 11/01/20 11/01/20 11/01/20 11:24 16:09 20:36 WBC RBC Hgb Hct MCV MCH MCHC RDW Plt Count MPV Immature Gran % (Auto) Neut % (Auto) Lymph % (Auto) [place] % (Auto) Eos % (Auto) Baso % (Auto) Lymph # (Auto) [place] # (Auto) Eos # (Auto) Baso # (Auto) Abs Immat Gran (auto) Absolute Neuts (auto) Absolute Nucleated RBC Nucleated RBC % (auto) ESR PT INR Hold Blue Top VBG pH VBG pCO2 VBG pO2 VBG HCO3 VBG O2 Saturation VBG Base Excess Sodium Potassium Chloride Carbon Dioxide Anion Gap BUN Creatinine Estim Creat Clear Calc Estimated GFR POC Glucose 173 H 254 H 188 H Random Glucose Osmolality Lactic Acid Calcium Magnesium Ferritin Total Bilirubin Direct Bilirubin AST ALT Alkaline Phosphatase Total Creatine Kinase Troponin I High Sens C-Reactive Protein B-Natriuretic Peptide Total Protein Albumin Procalcitonin TSH Urine Color Urine Appearance Urine pH Ur Specific [place] Urine Protein Urine Glucose (UA) Urine Ketones Urine Blood Urine Nitrite Ur Leukocyte Esterase Urine RBC Urine WBC Ur Squamous Epith Cells Urine Bacteria Urine Osmolality Ur Random Sodium Ur Random Potassium Ur Random Chloride Urine Opiates Screen Ur Barbiturates Screen Ur Phencyclidine Scrn Ur Amphetamines Screen U Benzodiazepines Scrn Urine Cocaine Screen U Marijuana (THC) Screen Acetone, Qual Lymphocyte Subset Cmmnt Total Lymphocytes % CD3 Cells Absolute CD3 Count % CD4 Cells Absolute CD4 Count CD4/CD8 Ratio % CD8 Cells Absolute CD8 Count COVID-19 (THEA) COVID-19 [employer] 11/02/20 11/02/20 11/02/20 06:56 08:41 10:52 WBC RBC Hgb Hct MCV MCH MCHC RDW Plt Count MPV Immature Gran % (Auto) Neut % (Auto) Lymph % (Auto) [place] % (Auto) Eos % (Auto) Baso % (Auto) Lymph # (Auto) [place] # (Auto) Eos # (Auto) Baso # (Auto) Abs Immat Gran (auto) Absolute Neuts (auto) Absolute Nucleated RBC Nucleated RBC % (auto) ESR PT INR Hold Blue Top VBG pH VBG pCO2 VBG pO2 VBG HCO3 VBG O2 Saturation VBG Base Excess Sodium 132 L Potassium 3.5 D Chloride 101 Carbon Dioxide 25 Anion Gap 10 L BUN Creatinine Estim Creat Clear Calc Estimated GFR POC Glucose 93 82 Random Glucose Osmolality Lactic Acid Calcium Magnesium 1.5 L Ferritin Total Bilirubin Direct Bilirubin AST ALT Alkaline Phosphatase Total Creatine Kinase Troponin I High Sens C-Reactive Protein B-Natriuretic Peptide Total Protein Albumin Procalcitonin TSH Urine Color Urine Appearance Urine pH Ur Specific [place] Urine Protein Urine Glucose (UA) Urine Ketones Urine Blood Urine Nitrite Ur Leukocyte Esterase Urine RBC Urine WBC Ur Squamous Epith Cells Urine Bacteria Urine Osmolality Ur Random Sodium Ur Random Potassium Ur Random Chloride Urine Opiates Screen Ur Barbiturates Screen Ur Phencyclidine Scrn Ur Amphetamines Screen U Benzodiazepines Scrn Urine Cocaine Screen U Marijuana (THC) Screen Acetone, Qual Lymphocyte Subset Cmmnt Total Lymphocytes % CD3 Cells Absolute CD3 Count % CD4 Cells Absolute CD4 Count CD4/CD8 Ratio % CD8 Cells Absolute CD8 Count COVID-19 (THEA) COVID-19 depict Com 11/02/20 11/02/20 11/02/20 12:58 13:25 16:27 WBC RBC Hgb Hct MCV MCH MCHC RDW Plt Count MPV Immature Gran % (Auto) Neut % (Auto) Lymph % (Auto) [place] % (Auto) Eos % (Auto) Baso % (Auto) Lymph # (Auto) [place] # (Auto) Eos # (Auto) Baso # (Auto) Abs Immat Gran (auto) Absolute Neuts (auto) Absolute Nucleated RBC Nucleated RBC % (auto) ESR PT INR Hold Blue Top VBG pH VBG pCO2 VBG pO2 VBG HCO3 VBG O2 Saturation VBG Base Excess Sodium Potassium Chloride Carbon Dioxide Anion Gap BUN Creatinine Estim Creat Clear Calc Estimated GFR POC Glucose 91 88 183 H Random Glucose Osmolality Lactic Acid Calcium Magnesium Ferritin Total Bilirubin Direct Bilirubin AST ALT Alkaline Phosphatase Total Creatine Kinase Troponin I High Sens C-Reactive Protein B-Natriuretic Peptide Total Protein Albumin Procalcitonin TSH Urine Color Urine Appearance Urine pH Ur Specific [place] Urine Protein Urine Glucose (UA) Urine Ketones Urine Blood Urine Nitrite Ur Leukocyte Esterase Urine RBC Urine WBC Ur Squamous Epith Cells Urine Bacteria Urine Osmolality Ur Random Sodium Ur Random Potassium Ur Random Chloride Urine Opiates Screen Ur Barbiturates Screen Ur Phencyclidine Scrn Ur Amphetamines Screen U Benzodiazepines Scrn Urine Cocaine Screen U Marijuana (THC) Screen Acetone, Qual Lymphocyte Subset Cmmnt Total Lymphocytes % CD3 Cells Absolute CD3 Count % CD4 Cells Absolute CD4 Count CD4/CD8 Ratio % CD8 Cells Absolute CD8 Count COVID-19 (THEA) COVID-19 Clin Com 11/02/20 11/03/20 11/03/20 20:35 07:31 11:21 WBC RBC Hgb Hct MCV MCH MCHC RDW Plt Count MPV Immature Gran % (Auto) Neut % (Auto) Lymph % (Auto) [place] % (Auto) Eos % (Auto) Baso % (Auto) Lymph # (Auto) [place] # (Auto) Eos # (Auto) Baso # (Auto) Abs Immat Gran (auto) Absolute Neuts (auto) Absolute Nucleated RBC Nucleated RBC % (auto) ESR PT INR Hold Blue Top VBG pH VBG pCO2 VBG pO2 VBG HCO3 VBG O2 Saturation VBG Base Excess Sodium Potassium Chloride Carbon Dioxide Anion Gap BUN Creatinine Estim Creat Clear Calc Estimated GFR POC Glucose 257 H 61 123 H Random Glucose Osmolality Lactic Acid Calcium Magnesium Ferritin Total Bilirubin Direct Bilirubin AST ALT Alkaline Phosphatase Total Creatine Kinase Troponin I High Sens C-Reactive Protein B-Natriuretic Peptide Total Protein Albumin Procalcitonin TSH Urine Color Urine Appearance Urine pH Ur Specific [place] Urine Protein Urine Glucose (UA) Urine Ketones Urine Blood Urine Nitrite Ur Leukocyte Esterase Urine RBC Urine WBC Ur Squamous Epith Cells Urine Bacteria Urine Osmolality Ur Random Sodium Ur Random Potassium Ur Random Chloride Urine Opiates Screen Ur Barbiturates Screen Ur Phencyclidine Scrn Ur Amphetamines Screen U Benzodiazepines Scrn Urine Cocaine Screen U Marijuana (THC) Screen Acetone, Qual Lymphocyte Subset Cmmnt Total Lymphocytes % CD3 Cells Absolute CD3 Count % CD4 Cells Absolute CD4 Count CD4/CD8 Ratio % CD8 Cells Absolute CD8 Count COVID-19 (THEA) COVID-19 Clin Com 11/03/20 11/03/20 11/04/20 16:35 20:35 06:05 WBC RBC Hgb Hct MCV MCH MCHC RDW Plt Count MPV Immature Gran % (Auto) Neut % (Auto) Lymph % (Auto) [place] % (Auto) Eos % (Auto) Baso % (Auto) Lymph # (Auto) [place] # (Auto) Eos # (Auto) Baso # (Auto) Abs Immat Gran (auto) Absolute Neuts (auto) Absolute Nucleated RBC Nucleated RBC % (auto) ESR PT INR Hold Blue Top VBG pH VBG pCO2 VBG pO2 VBG HCO3 VBG O2 Saturation VBG Base Excess Sodium 134 L Potassium 2.9 L Chloride 101 Carbon Dioxide 26 Anion Gap 10 L BUN 10 Creatinine 0.71 Estim Creat Clear Calc 102.2 Estimated GFR > 60 POC Glucose 206 H 199 H Random Glucose 52 L* Osmolality Lactic Acid Calcium 7.4 L Magnesium 1.5 L Ferritin Total Bilirubin Direct Bilirubin AST ALT Alkaline Phosphatase Total Creatine Kinase Troponin I High Sens C-Reactive Protein B-Natriuretic Peptide Total Protein Albumin Procalcitonin TSH Urine Color Urine Appearance Urine pH Ur Specific [place] Urine Protein Urine Glucose (UA) Urine Ketones Urine Blood Urine Nitrite Ur Leukocyte Esterase Urine RBC Urine WBC Ur Squamous Epith Cells Urine Bacteria Urine Osmolality Ur Random Sodium Ur Random Potassium Ur Random Chloride Urine Opiates Screen Ur Barbiturates Screen Ur Phencyclidine Scrn Ur Amphetamines Screen U Benzodiazepines Scrn Urine Cocaine Screen U Marijuana (THC) Screen Acetone, Qual Lymphocyte Subset Cmmnt Total Lymphocytes % CD3 Cells Absolute CD3 Count % CD4 Cells Absolute CD4 Count CD4/CD8 Ratio % CD8 Cells Absolute CD8 Count COVID-19 (THEA) COVID-19 Clin Com 11/04/20 11/04/20 11/04/20 07:39 07:39 07:45 WBC RBC Hgb 9.7 L Hct 28.8 L MCV MCH MCHC RDW Plt Count MPV Immature Gran % (Auto) Neut % (Auto) Lymph % (Auto) [place] % (Auto) Eos % (Auto) Baso % (Auto) Lymph # (Auto) [place] # (Auto) Eos # (Auto) Baso # (Auto) Abs Immat Gran (auto) Absolute Neuts (auto) Absolute Nucleated RBC Nucleated RBC % (auto) ESR PT 14.7 H D INR 1.2 H Hold Blue Top VBG pH VBG pCO2 VBG pO2 VBG HCO3 VBG O2 Saturation VBG Base Excess Sodium Potassium Chloride Carbon Dioxide Anion Gap BUN Creatinine Estim Creat Clear Calc Estimated GFR POC Glucose 60 Random Glucose Osmolality Lactic Acid Calcium Magnesium Ferritin Total Bilirubin Direct Bilirubin AST ALT Alkaline Phosphatase Total Creatine Kinase Troponin I High Sens C-Reactive Protein B-Natriuretic Peptide Total Protein Albumin Procalcitonin TSH Urine Color Urine Appearance Urine pH Ur Specific [place] Urine Protein Urine Glucose (UA) Urine Ketones Urine Blood Urine Nitrite Ur Leukocyte Esterase Urine RBC Urine WBC Ur Squamous Epith Cells Urine Bacteria Urine Osmolality Ur Random Sodium Ur Random Potassium Ur Random Chloride Urine Opiates Screen Ur Barbiturates Screen Ur Phencyclidine Scrn Ur Amphetamines Screen U Benzodiazepines Scrn Urine Cocaine Screen U Marijuana (THC) Screen Acetone, Qual Lymphocyte Subset Cmmnt Total Lymphocytes % CD3 Cells Absolute CD3 Count % CD4 Cells Absolute CD4 Count CD4/CD8 Ratio % CD8 Cells Absolute CD8 Count COVID-19 (THEA) COVID-19 [employer] 11/04/20 11/04/20 11/04/20 12:27 16:40 19:40 WBC RBC Hgb Hct MCV MCH MCHC RDW Plt Count MPV Immature Gran % (Auto) Neut % (Auto) Lymph % (Auto) [place] % (Auto) Eos % (Auto) Baso % (Auto) Lymph # (Auto) [place] # (Auto) Eos # (Auto) Baso # (Auto) Abs Immat Gran (auto) Absolute Neuts (auto) Absolute Nucleated RBC Nucleated RBC % (auto) ESR PT INR Hold Blue Top VBG pH VBG pCO2 VBG pO2 VBG HCO3 VBG O2 Saturation VBG Base Excess Sodium Potassium 4.4 D Chloride Carbon Dioxide Anion Gap BUN Creatinine Estim Creat Clear Calc Estimated GFR POC Glucose 171 H 213 H Random Glucose Osmolality Lactic Acid Calcium Magnesium Ferritin Total Bilirubin Direct Bilirubin AST ALT Alkaline Phosphatase Total Creatine Kinase Troponin I High Sens C-Reactive Protein B-Natriuretic Peptide Total Protein Albumin Procalcitonin TSH Urine Color Urine Appearance Urine pH Ur Specific [place] Urine Protein Urine Glucose (UA) Urine Ketones Urine Blood Urine Nitrite Ur Leukocyte Esterase Urine RBC Urine WBC Ur Squamous Epith Cells Urine Bacteria Urine Osmolality Ur Random Sodium Ur Random Potassium Ur Random Chloride Urine Opiates Screen Ur Barbiturates Screen Ur Phencyclidine Scrn Ur Amphetamines Screen U Benzodiazepines Scrn Urine Cocaine Screen U Marijuana (THC) Screen Acetone, Qual Lymphocyte Subset Cmmnt Total Lymphocytes % CD3 Cells Absolute CD3 Count % CD4 Cells Absolute CD4 Count CD4/CD8 Ratio % CD8 Cells Absolute CD8 Count COVID-19 (THEA) COVID-19 Clin Com 11/04/20 11/05/20 11/05/20 21:12 06:28 07:51 WBC RBC Hgb Hct MCV MCH MCHC RDW Plt Count MPV Immature Gran % (Auto) Neut % (Auto) Lymph % (Auto) [place] % (Auto) Eos % (Auto) Baso % (Auto) Lymph # (Auto) [place] # (Auto) Eos # (Auto) Baso # (Auto) Abs Immat Gran (auto) Absolute Neuts (auto) Absolute Nucleated RBC Nucleated RBC % (auto) ESR PT INR Hold Blue Top VBG pH VBG pCO2 VBG pO2 VBG HCO3 VBG O2 Saturation VBG Base Excess Sodium 129 L Potassium 3.8 Chloride 98 Carbon Dioxide 26 Anion Gap 9 L BUN 9 Creatinine 0.65 Estim Creat Clear Calc 111.7 Estimated GFR > 60 POC Glucose 333 H 148 H Random Glucose 142 H D Osmolality Lactic Acid Calcium 7.3 L Magnesium Ferritin Total Bilirubin Direct Bilirubin AST ALT Alkaline Phosphatase Total Creatine Kinase Troponin I High Sens C-Reactive Protein B-Natriuretic Peptide Total Protein Albumin Procalcitonin TSH Urine Color Urine Appearance Urine pH Ur Specific [place] Urine Protein Urine Glucose (UA) Urine Ketones Urine Blood Urine Nitrite Ur Leukocyte Esterase Urine RBC Urine WBC Ur Squamous Epith Cells Urine Bacteria Urine Osmolality Ur Random Sodium Ur Random Potassium Ur Random Chloride Urine Opiates Screen Ur Barbiturates Screen Ur Phencyclidine Scrn Ur Amphetamines Screen U Benzodiazepines Scrn Urine Cocaine Screen U Marijuana (THC) Screen Acetone, Qual Lymphocyte Subset Cmmnt Total Lymphocytes % CD3 Cells Absolute CD3 Count % CD4 Cells Absolute CD4 Count CD4/CD8 Ratio % CD8 Cells Absolute CD8 Count COVID-19 (THEA) COVID-19 [employer] 11/05/20 11/05/20 11/05/20 08:00 12:00 13:13 WBC RBC Hgb Hct MCV MCH MCHC RDW Plt Count MPV Immature Gran % (Auto) Neut % (Auto) Lymph % (Auto) [place] % (Auto) Eos % (Auto) Baso % (Auto) Lymph # (Auto) [place] # (Auto) Eos # (Auto) Baso # (Auto) Abs Immat Gran (auto) Absolute Neuts (auto) Absolute Nucleated RBC Nucleated RBC % (auto) ESR PT INR Hold Blue Top VBG pH VBG pCO2 VBG pO2 VBG HCO3 VBG O2 Saturation VBG Base Excess Sodium 128 L Potassium Chloride Carbon Dioxide Anion Gap BUN Creatinine Estim Creat Clear Calc Estimated GFR POC Glucose 291 H Random Glucose Osmolality 270 L Lactic Acid Calcium Magnesium Ferritin Total Bilirubin 0.4 Direct Bilirubin 0.4 AST 30 ALT 16 Alkaline Phosphatase 141 H Total Creatine Kinase Troponin I High Sens C-Reactive Protein B-Natriuretic Peptide Total Protein 6.4 L Albumin 1.9 L D Procalcitonin TSH 1.78 Urine Color Urine Appearance Urine pH Ur Specific [place] Urine Protein Urine Glucose (UA) Urine Ketones Urine Blood Urine Nitrite Ur Leukocyte Esterase Urine RBC Urine WBC Ur Squamous Epith Cells Urine Bacteria Urine Osmolality Ur Random Sodium Ur Random Potassium Ur Random Chloride Urine Opiates Screen Ur Barbiturates Screen Ur Phencyclidine Scrn Ur Amphetamines Screen U Benzodiazepines Scrn Urine Cocaine Screen U Marijuana (THC) Screen Acetone, Qual Lymphocyte Subset Cmmnt Total Lymphocytes % CD3 Cells Absolute CD3 Count % CD4 Cells Absolute CD4 Count CD4/CD8 Ratio % CD8 Cells Absolute CD8 Count COVID-19 (THEA) COVID-19 [employer] 11/05/20 11/05/20 11/05/20 15:25 15:25 16:30 WBC RBC Hgb Hct MCV MCH MCHC RDW Plt Count MPV Immature Gran % (Auto) Neut % (Auto) Lymph % (Auto) [place] % (Auto) Eos % (Auto) Baso % (Auto) Lymph # (Auto) [place] # (Auto) Eos # (Auto) Baso # (Auto) Abs Immat Gran (auto) Absolute Neuts (auto) Absolute Nucleated RBC Nucleated RBC % (auto) ESR PT INR Hold Blue Top VBG pH VBG pCO2 VBG pO2 VBG HCO3 VBG O2 Saturation VBG Base Excess Sodium Potassium Chloride Carbon Dioxide Anion Gap BUN Creatinine Estim Creat Clear Calc Estimated GFR POC Glucose 289 H Random Glucose Osmolality Lactic Acid Calcium Magnesium Ferritin Total Bilirubin Direct Bilirubin AST ALT Alkaline Phosphatase Total Creatine Kinase Troponin I High Sens C-Reactive Protein B-Natriuretic Peptide Total Protein Albumin Procalcitonin TSH Urine Color Urine Appearance Urine pH Ur Specific [place] Urine Protein Urine Glucose (UA) Urine Ketones Urine Blood Urine Nitrite Ur Leukocyte Esterase Urine RBC Urine WBC Ur Squamous Epith Cells Urine Bacteria Urine Osmolality 579 Ur Random Sodium 85.0 Ur Random Potassium 39.1 Ur Random Chloride 92.0 Urine Opiates Screen Ur Barbiturates Screen Ur Phencyclidine Scrn Ur Amphetamines Screen U Benzodiazepines Scrn Urine Cocaine Screen U Marijuana (THC) Screen Acetone, Qual Lymphocyte Subset Cmmnt Total Lymphocytes % CD3 Cells Absolute CD3 Count % CD4 Cells Absolute CD4 Count CD4/CD8 Ratio % CD8 Cells Absolute CD8 Count COVID-19 (THEA) COVID-19 Clin Com 11/05/20 11/06/20 11/06/20 20:07 06:14 07:36 WBC RBC Hgb Hct MCV MCH MCHC RDW Plt Count MPV Immature Gran % (Auto) Neut % (Auto) Lymph % (Auto) [place] % (Auto) Eos % (Auto) Baso % (Auto) Lymph # (Auto) [place] # (Auto) Eos # (Auto) Baso # (Auto) Abs Immat Gran (auto) Absolute Neuts (auto) Absolute Nucleated RBC Nucleated RBC % (auto) ESR PT INR Hold Blue Top VBG pH VBG pCO2 VBG pO2 VBG HCO3 VBG O2 Saturation VBG Base Excess Sodium 128 L Potassium 4.1 Chloride 98 Carbon Dioxide 25 Anion Gap 9 L BUN 11 Creatinine 0.70 Estim Creat Clear Calc 103.7 Estimated GFR > 60 POC Glucose 339 H 153 H Random Glucose 152 H Osmolality Lactic Acid Calcium 7.5 L Magnesium Ferritin Total Bilirubin Direct Bilirubin AST ALT Alkaline Phosphatase Total Creatine Kinase Troponin I High Sens C-Reactive Protein B-Natriuretic Peptide Total Protein Albumin Procalcitonin TSH Urine Color Urine Appearance Urine pH Ur Specific [place] Urine Protein Urine Glucose (UA) Urine Ketones Urine Blood Urine Nitrite Ur Leukocyte Esterase Urine RBC Urine WBC Ur Squamous Epith Cells Urine Bacteria Urine Osmolality Ur Random Sodium Ur Random Potassium Ur Random Chloride Urine Opiates Screen Ur Barbiturates Screen Ur Phencyclidine Scrn Ur Amphetamines Screen U Benzodiazepines Scrn Urine Cocaine Screen U Marijuana (THC) Screen Acetone, Qual Lymphocyte Subset Cmmnt Total Lymphocytes % CD3 Cells Absolute CD3 Count % CD4 Cells Absolute CD4 Count CD4/CD8 Ratio % CD8 Cells Absolute CD8 Count COVID-19 (THEA) COVID-19 Clin Com 11/06/20 11:47 WBC RBC Hgb Hct MCV MCH MCHC RDW Plt Count MPV Immature Gran % (Auto) Neut % (Auto) Lymph % (Auto) [place] % (Auto) Eos % (Auto) Baso % (Auto) Lymph # (Auto) [place] # (Auto) Eos # (Auto) Baso # (Auto) Abs Immat Gran (auto) Absolute Neuts (auto) Absolute Nucleated RBC Nucleated RBC % (auto) ESR PT INR Hold Blue Top VBG pH VBG pCO2 VBG pO2 VBG HCO3 VBG O2 Saturation VBG Base Excess Sodium Potassium Chloride Carbon Dioxide Anion Gap BUN Creatinine Estim Creat Clear Calc Estimated GFR POC Glucose 313 H Random Glucose Osmolality Lactic Acid Calcium Magnesium Ferritin Total Bilirubin Direct Bilirubin AST ALT Alkaline Phosphatase Total Creatine Kinase Troponin I High Sens C-Reactive Protein B-Natriuretic Peptide Total Protein Albumin Procalcitonin TSH Urine Color Urine Appearance Urine pH Ur Specific [place] Urine Protein Urine Glucose (UA) Urine Ketones Urine Blood Urine Nitrite Ur Leukocyte Esterase Urine RBC Urine WBC Ur Squamous Epith Cells Urine Bacteria Urine Osmolality Ur Random Sodium Ur Random Potassium Ur Random Chloride Urine Opiates Screen Ur Barbiturates Screen Ur Phencyclidine Scrn Ur Amphetamines Screen U Benzodiazepines Scrn Urine Cocaine Screen U Marijuana (THC) Screen Acetone, Qual Lymphocyte Subset Cmmnt Total Lymphocytes % CD3 Cells Absolute CD3 Count % CD4 Cells Absolute CD4 Count CD4/CD8 Ratio % CD8 Cells Absolute CD8 Count COVID-19 (THEA) COVID-19 Clin Com Discharge Plan Discharge Patient Disposition: Xfer SNF Referrals: [facility] [Other] [facility] [Other] (BLS TRANSPORT) [facility] [Outside] (SKILLED NURSING IV ANTIBIOTICS) Alejo Chatman MD [Physician] - (Follow-up in 1 week time.) Karina Max MD [Physician] - (Follow-up with Dr. Max in 2 weeks) Basia Shaffer PA-C [Physician Merchant Patroller] - (Follow-up with Ortho in 2 weeks.) Macrina Noel CNP [Nurse Practitioner] - (Follow-up in 2 weeks) Mamie Vogt MD [Physician] - 1 Week (TELE VISIT 11/17/20 9:30. Dr. Vogt will call you to discuss your hospital stay.) Discharge Medications: New buprenorphine-naloxone [Suboxone] 8-2 mg film 1 film sublingual DAILY Qty: 14 RF: 0 Lantus U-100 Insulin 100 unit/mL Solution 10 unit subcut DAILY Qty: 1 RF: 0 insulin lispro [Humalog U-100 Insulin] 100 unit/mL Solution See Protocol unit subcut QIDACHS Qty: 1 RF: 0 fluconazole 100 mg Tablet 200 mg PO DAILY Qty: 30 RF: 0 clonidine HCl 0.1 mg Tablet 0.1 mg PO BID PRN (Reason: withdrawal) Qty: 10 RF: 0 nafcillin 2 gram Recon Soln 2 g IV Q4H Qty: 52 RF: 0 atovaquone [Mepron] 750 mg/5 mL Suspension 750 mg PO BID Qty: 60 RF: 0 potassium chloride 20 mEq packet 20 meq PO DAILY Qty: 3 RF: 0 urea 15 gram powder in packet 1 packet PO BID Qty: 6 RF: 0 Continued Flovent HFA 110 mcg/actuation HFA aerosol inhaler 1 puff PO BID RF: 0 Biktarvy 50-200-25 mg tablet 1 tab PO DAILY RF: 0 Discontinued insulin aspart U-100 [Novolog Flexpen U-100 Insulin] 100 unit/mL (3 mL) insulin pen 0 unit subcut TID RF: 0 Lantus Solostar U-100 Insulin 100 unit/mL (3 mL) insulin pen 18 unit subcut BID RF: 0 buprenorphine-naloxone [Suboxone] 8-2 mg film 1 strip sublingual BID RF: 0 Discharge Orders: Discharge Order (Routine); Ordered 11/06/20 Ordered By: Alla Marinelli Diet: advance to usual diet and diabetic diet Activity on Discharge: As tolerated Other Ambulatory Orders: Basic Metabolic Panel (Routine) Timeframe: 20201108 Facility: [facility] - Location: Laboratory Ordered By: Alla Marinelli Complete Blood Count no Diff (Routine) Timeframe: 20201108 Facility: [facility] - Location: Laboratory Ordered By: Alla Marinelli Liver Panel (Routine) Timeframe: 20201108 Facility: [facility] - Location: Laboratory Ordered By: Alla Marinelli Visit Report Forms: Patient Portal Discharge page Care Plan Goals: Patient was started on IV antibiotics for MSSA bacteremia/right leg cellulitis. Subsequently patient was seen by infectious disease and orthopedics: Status post right knee irrigation and was and moving the knee better and swelling is also improving on right lower extremities: Infectious disease recommended to continue nafcillin until october 23Oth: PICC line was placed. Patient going to rehab for further management and long-term antibiotic use. Patient will benefit from less than 30 day stay. Patient is to follow-up with infectious disease and orthopedics out patiently in 2 weeks time for above. Patient was also seen by psych because of opioid use: Recommended Suboxone 8mg QD--prescription sent to pharmacy as requested by SNF as per psych. Patient already has follow up MAT appt in place at [facility] to continue treatment Health Concerns: As above. Plan of Treatment: As above.
[2020-11-06] MEDS: Urea 15 GM POWDER PO (15:38)
--- NOTE | 2020-11-06 15:43 | MHC.CM.PN ---
PT CLEARED FOR DC TODAY TO [facility]. TRANSPORTATION SCHEDULED FOR 1700 HOURS [facility]IA [facility]
[2020-11-06 15:48] VITALS: BP 133/83; PULSE 104; RESP 18; TEMP 37.4; O2SAT 98
[2020-11-06 16:18] LABS: Glucose, Whole Blood 247 mg/dL (60-115)
--- NOTE | 2020-11-07 13:18 | CONS_ITS ---
DATE OF SERVICE: 11/05/2020 REASON FOR CONSULTATION: Consult requested by Dr. Marinelli to evaluate and help in management of the patient with hyponatremia. HISTORY OF PRESENT ILLNESS: The patient is a 55-year-old male with past medical history of hep C positive and hep B positive status, history of diabetes, HIV positive status, admitted for MSSA bacteremia and right lower extremity cellulitis. Unfortunately, the patient left against medical advice on October 24. He returned on the with ongoing pain in the right lower extremity and difficulty ambulating. In addition to fever, he was noted to have temperature of 100.4 degree Fahrenheit. Lab work showed that they were similar to previous admission. He was initiated on IV antibiotics and admitted to the hospital. Renal consult has been requested as his sodium level has dropped from around 134 to 128. He has had episodes of hyperglycemia. He is feeling well at the present time and resting in the bed. PAST MEDICAL HISTORY: History of AIDS/HIV, history of bacteremia which is MSSA, history of diabetes, drug abuse, hep C and B positive status, HIV positive status, hypertension, and MSSA bacteremia. FAMILY HISTORY: Father is and mother also . No major medical disease. PAST SURGICAL HISTORY: Repair of laceration. PERSONAL AND SOCIAL HISTORY: The patient is living in an apartment. He smoked in the past. Does not drink alcohol at the present time. He has a history of substance abuse in the past. ALLERGIES: INCLUDE ALLERGIES TO SULFA. MEDICATIONS: As an outpatient and inpatient were reviewed. PHYSICAL EXAMINATION: GENERAL: The patient is resting in the bed. Awake, alert, able to follow commands. VITAL SIGNS: Blood pressure was 134/78, pulse 103, afebrile. HEENT: Shows pupils equal, round, and reactive bilaterally to light. No jugular venous distention is noted. NECK: Supple. No thyromegaly is noted. Mucosa moist. There is no scleral icterus or conjunctival congestion. CARDIOVASCULAR SYSTEM: S1, S2 without rub. RESPIRATORY SYSTEM: Air entry decreased in the bases. No crepitation or rhonchi are noted. ABDOMEN: Soft, nontender. No guarding noted. Bowel sounds normal. EXTREMITIES: Showed right lower extremity swelling with cellulitis. Left lower extremity did not show any swelling. LABORATORY DATA: Labs done today. Sodium 128, potassium 3.8, chloride 98, CO2 22, BUN 9, creatinine 0.65. TSH 1.78. Serum cortisol level was normal. Urine osmolality was 579. Urine sodium was 85. Serum osmolality was 270. IMPRESSION: 1. 55-year-old male with hyponatremia. The patient has hypoosmolar hyponatremia. Given increased urine osmolality and increased urine sodium, I do not think he has hypovolemic hyponatremia. 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 The patient's TSH level and cortisol level are normal, and I doubt the patient has adrenal/thyroid disease. 2. Methicillin-sensitive Staphylococcus aureus bacteremia. 3. Hypertension. 4. Right lower extremity cellulitis. RECOMMENDATIONS: At this juncture, we need to keep his blood sugars around 100 to 150. Elevated blood sugars can cause low sodium levels. I recommend placing the patient on a fluid restriction of 1500 cc an hour. I suspected that just fluid restriction should help with improvement of the sodium level. Based on future sodium levels, we might have to add urea to his regimen. Continue with his present antihypertensive regimen and anti-HIV medication. We will continue to follow the patient closely. Thank you for allowing me to participate in medical management of the patient. MD MICHAEL Cervantes/LILY / [phone]
--- NOTE | 2020-11-08 09:50 | OP_ITS ---
SURGEON: Gus Aceves MD PREOPERATIVE DIAGNOSIS: Septic right knee. POSTOPERATIVE DIAGNOSIS: Septic right knee. PROCEDURE PERFORMED: Arthroscopic irrigation and debridement of right knee. ESTIMATED BLOOD LOSS: COMPLICATIONS: ANESTHESIA: ASSISTANTS: SPECIMENS: CLINICAL NOTE: This gentleman who unfortunately has AIDS as well as multiple areas of infection, and was noted to have a septic knee. Because of this, it was elected to bring him to the operating room for the above noted procedure. However, it was delayed for a couple of days due to hypokalemia and not being cleared for surgery, but at this point, after explaining the risks, benefits, and alternatives and answering all the questions, it was mutually agreed upon to carry out the following procedure. MOTION: Full extension, flexion to 120 degrees. STABILITY: Cruciate and collateral ligaments intact. DESCRIPTION OF PROCEDURE: PREPARATION: GA, standard technique, tourniquet to 300 mmHg for 22 minutes. SURGICAL TIME-OUT: The patient was identified, procedure confirmed, site confirmed. Medical analogy and history were reviewed. No preoperative antibiotics. No DVT prophylaxis. All other items were discussed and agreed upon. INCISION: Superolateral and inferolateral incisions were made. SYNOVIUM: Normal. There was not a lot of hemorrhagic tissue noted. SYNOVIAL FLUID: There was not any significant purulence. MEDIAL COMPARTMENT: Medial meniscus, tibial and femoral articular surfaces were intact. INTERCONDYLAR NOTCH: ACL was visualized, palpated intact. LATERAL COMPARTMENT: Lateral meniscus, tibial and femoral articular surfaces were intact. ANTERIOR COMPARTMENT: There was some minor hyperemic synovial tissue as well as some scar tissue, which was debrided using a full-radius resector. The patella and femoral sulcus, articular surfaces intact. At this point, the knee was irrigated for 9 L of normal saline fluid. At the end of the procedure, the knee was completely clean. CLOSURE: Dermabond, Steri-Strips, and sterile dressing were then applied. RECOMMENDATIONS: 1. Restore motion strength. 2. Resume activity as tolerated. 3. May weightbear as tolerated. May need a re I and D if circumstance as warranted. Gus Aceves MD KKI/MODL / [phone]
== END 2020-11-06 17:46 | disposition skilled nursing facility (03) | DRG 975 ==
LOC: HO.ED 10-28 07:02 → HO.S3 10-28 13:34
PROVIDERS: Internal Medicine; Orthopaedic Surgery; Physician Assistant; Physician Assistant Medical; Admitting Provider Student in an Organized Health Care Education/Training Program; Emergency Provider Internal Medicine; PCP Family Medicine; Visit Provider Internal Medicine
PROC: 0S9C4ZZ Drainage of Right Knee Joint, Percutaneous Endoscopic Approach (ICD-10-PCS; CPT 29870; principal; 2020-11-02 11:30)
DX: A41.01 Sepsis due to Methicillin susceptible Staphylococcus aureus (principal); B20 Human immunodeficiency virus [HIV] disease; L03.115 Cellulitis of right lower limb; B37.0 Candidal stomatitis; M60.003 Infective myositis, unspecified right leg; M00.9 Pyogenic arthritis, unspecified; E44.0 Moderate protein-calorie malnutrition; I38 Endocarditis, valve unspecified; E87.6 Hypokalemia; F11.10 Opioid abuse, uncomplicated; F17.210 Nicotine dependence, cigarettes, uncomplicated; E83.42 Hypomagnesemia; Z71.6 Tobacco abuse counseling; Z20.822 Contact with and (suspected) exposure to COVID-19; E11.65 Type 2 diabetes mellitus with hyperglycemia; Z68.21 Body mass index [BMI] 21.0-21.9, adult; D64.9 Anemia, unspecified; Z91.14 Patient's other noncompliance with medication regimen; Z88.2 Allergy status to sulfonamides; Z79.4 Long term (current) use of insulin; Z79.51 Long term (current) use of inhaled steroids; Z79.899 Other long term (current) drug therapy
CPT/HCPCS: 10030; 36415; 36573; 71045; 73701; 80048; 80051; 80076; 80307; 81001; 82009; 82436; 82550; 82728; 82803; 82947; 83605; 83735; 83880; 83930; 83935; 84132; 84133; 84145; 84295; 84300; 84443; 84484; 85014; 85018; 85025; 85027; 85610; 85652; 86140; 86359; 86360; 87040; 87071; 87073; 87077; 87086; 87088; 87186; 87205; 87635; 89060; 93005; 93970; 96361; 96365; 96366; 96367; 97162; 99284; 99285; 99291; C1751; J0171; J0573; J0574; J1100; J1650; J2250; J2270; J2405; J2543; J3010; J3475; Q0163; Q9967

== ENCOUNTER 2021-04-23 16:53 | Emergency (ER) | payer OTHER, SELFPAY ==
[2021-04-23 16:56] VITALS: BP 113/73; PULSE 92; RESP 16; TEMP 36.6; O2SAT 96; BMI 20.3
--- NOTE | 2021-04-23 17:39 | ED_ITS ---
HPI - Extremity Problem General Chief complaint: Extremity Problem Stated complaint: LEG ANKLE PAIN Time Seen by Provider: 04/23/21 17:16 Source: patient Mode of arrival: ambulatory Limitations: no limitations History of Present Illness HPI Narrative: patient history of HIV disease non compliant on taking his medic ations last CD4 count was 57 in 11/10 comes here for oral thrush and chronic nonhealing wound of right leg. One on the right leg is dry slight tenderness but no pus discharge or erythema slight surrounding swelling no fever no chills no redness Related Data Home Medications Medication Instructions Recorded Confirmed Biktarvy 1 tab PO DAILY 10/21/20 10/27/20 Flovent HFA 1 puff PO BID 10/21/20 10/27/20 Previous Rx's Medication Instructions Recorded buprenorphine-naloxone [Suboxone] 1 film SUBLINGUAL DAILY #14 ea 11/04/20 atovaquone [Mepron] 750 mg PO BID #60 ml 11/06/20 clonidine HCl 0.1 mg PO BID PRN #10 tab 11/06/20 fluconazole 200 mg PO DAILY #30 tab 11/06/20 insulin glargine [Lantus U-100 10 unit SUBCUT DAILY #1 ml 11/06/20 Insulin] insulin lispro [Humalog U-100 See Protocol SUBCUT QIDACHS #1 ml 11/06/20 Insulin] nafcillin 2 g IV Q4H #52 ea 11/06/20 potassium chloride 20 meq PO DAILY #3 ea 11/06/20 urea 1 packet PO BID #6 ea 11/06/20 doxycycline hyclate 100 mg PO BID #20 cap 04/23/21 fluconazole [Diflucan] 100 mg PO DAILY #30 tab 04/23/21 Allergies Allergy/AdvReac Type Severity Reaction Status Date / Time Sulfa (Sulfonamide Allergy Mild RASH Verified 11/02/20 10:47 Antibiotics) [Sulfa (Sulfonamides)] Review of Systems Review of Systems: Yes all other systems are reviewed and are negative PMFSH Past Medical History Medical History Acute hyperglycemia Acute renal failure AIDS Anxiety Bacteremia Cellulitis of right leg Depression Diabetes Drug abuse Hepatitis C HIV (human immunodeficiency virus infection) HTN (hypertension) MSSA bacteremia Opiate abuse, continuous Septic arthritis of knee, right Surgical History History of repair of laceration Family History Family History Father Alcoholism Mother Type 2 diabetes mellitus Sister No problems noted. Sister No problems noted. Brother No problems noted. Son No problems noted. Social History Social History Household Members: None Housing: Apartment Do you presently have visiting nurse or other home services: No Alcohol intake: current Alcohol intake frequency: does not drink Cigarette Packs Per Day: 0.5 Cigarettes Per Day: 10.0 Years Smoked: 23 Second Hand Smoke Exposure: No Substance Use Type: Heroin Advance Directives: Yes Advance Directives Information Provided: Yes Advance Directives on File: No service: No Current occupational status: unemployed Physical Exam Vital Signs: Vital Signs: Last Vital Signs Temp 97.9 F 04/23/21 16:56 Pulse 92 04/23/21 16:56 Resp 16 04/23/21 16:56 BP 113/73 04/23/21 16:56 Pulse Ox 96 04/23/21 16:56 Body Mass Index 20.3 Const: General: comfortable Orientation/consciousness: patient oriented x3 HENMT: Head: Yes normocephalic Ears: hearing grossly normal bilaterally Mouth: Abnormal oral and palatal mucosa present ( oral thrush++) Eyes: General: appearance normal, both eyes and all related structures Neck: Neck: Yes normal visual inspection Resp: Effort & Inspection: normal respiratory effort Auscultation: clear to auscultation bilaterally Cardio: Palpation: normal PMI Rate: regular rate Rhythm: regular rhythm Heart sounds: S1 normal heart sound present and S2 normal heart sound present Peripheral pulses: Peripheral pulses 2+ throughout GI: Inspection: Yes normal to inspection Palpation (GI): Soft to palpation and nontender Auscultation: normal bowel sounds Neuro: General: patient oriented x3 Extrem: Upper/lower leg/hip images: 1. healing wound no pus discharge relation tissue at the scar no surrounding erythema slight soft tissue swelling mild tenderness neurovascular intact MDM - Extremity (Nontraumatic) MDM Narrative Medical decision making narrative: patient HIV with low CD4 count advised to follow up with ID doctor and PCP and to resume medication whichhe is noncompliant for few months. Patient was given doxycycline and Diflucan for oral thrush and non healing wound right leg Discharge Plan Discharge Clinical Impression: Thrush, oral, Chronic wound of extremity Patient Disposition: Home, Self-Care Instructions: Oral Candidiasis (ED), Chronic Wounds (ED) Additional Instructions: follow-up with your doctor for HIV medications medication for candidiasis and chronic wound as prescribed Prescriptions: New fluconazole [Diflucan] 100 mg tablet 100 mg PO DAILY Qty: 30 RF: 0 doxycycline hyclate 100 mg capsule 100 mg PO BID Qty: 20 RF: 0 No Action Flovent HFA 110 mcg/actuation HFA aerosol inhaler 1 puff PO BID RF: 0 Biktarvy 50-200-25 mg tablet 1 tab PO DAILY RF: 0 buprenorphine-naloxone [Suboxone] 8-2 mg film 1 film sublingual DAILY Qty: 14 RF: 0 Lantus U-100 Insulin 100 unit/mL Solution 10 unit subcut DAILY Qty: 1 RF: 0 insulin lispro [Humalog U-100 Insulin] 100 unit/mL Solution See Protocol unit subcut QIDACHS Qty: 1 RF: 0 fluconazole 100 mg Tablet 200 mg PO DAILY Qty: 30 RF: 0 clonidine HCl 0.1 mg Tablet 0.1 mg PO BID PRN (Reason: withdrawal) Qty: 10 RF: 0 nafcillin 2 gram Recon Soln 2 g IV Q4H Qty: 52 RF: 0 atovaquone [Mepron] 750 mg/5 mL Suspension 750 mg PO BID Qty: 60 RF: 0 potassium chloride 20 mEq packet 20 meq PO DAILY Qty: 3 RF: 0 urea 15 gram powder in packet 1 packet PO BID Qty: 6 RF: 0
--- NOTE | 2021-04-23 18:01 | PC.NURSE ---
PT STATED HE CANT AMBULATE, BUT HE HAS BEEN PACING THE [place] AND LEFT AND SMOKE AND WALKED BACK IN WITH STEADY GAIT.
--- NOTE | 2021-04-23 18:18 | PC.NURSE ---
PT WAS ASKED TO WAIT FOR THE PERSONAL BANKING REPRESENTATIVE AND HE WAS UPSET BECAUSE HE WANTED TO ADMITTED TO THE HOSPITAL FOR HIS FOOT. PT GOT WALKED WITH STEADY GAIT OUT OF HOSPITAL WHEN ASKED TO WAIT FOR MEDICATION HE REFUSED MEDS RETURNED TO PHARMACY PIXES.
== END 2021-04-23 18:25 | disposition home or self-care (01) ==
PROVIDERS: Emergency Provider Internal Medicine
DX: B37.0 Candidal stomatitis (principal); S81.801A Unspecified open wound, right lower leg, initial encounter; B20 Human immunodeficiency virus [HIV] disease; I10 Essential (primary) hypertension; E11.9 Type 2 diabetes mellitus without complications; Z79.4 Long term (current) use of insulin; Z79.899 Other long term (current) drug therapy; X58.XXXA Exposure to other specified factors, initial encounter; Z91.14 Patient's other noncompliance with medication regimen; Y93.9 Activity, unspecified; Y92.9 Unspecified place or not applicable; Y99.9 Unspecified external cause status
CPT/HCPCS: 99283

== ENCOUNTER 2022-03-13 21:46 | Emergency (ER) | payer OTHER, SELFPAY ==
[2022-03-13 21:53] VITALS: BP 110/64; PULSE 84; RESP 16; TEMP 36.6; O2SAT 98; BMI 21.9
--- NOTE | 2022-03-13 21:53 | ED_ITS ---
HPI - Alcohol General Chief Complaint: ETOH/Substance Use Stated Complaint: ETOH INTOXICATION PER EMS Time Seen by Provider: 03/13/22 21:53 Source: patient and radio director Mode of arrival: EMS Limitations: no limitations History of Present Illness HPI narrative: drinking tonight, couldn't find his home - called police they brought him here, he has no complaints no trauma calm and cooperative admits to drinking MD complaint: alcohol intoxication Last drink: Just prior to admission Chronic alcohol use: Yes Previous visits for alcohol intoxication: Yes Recent trauma: No Associated symptoms: denies other symptoms Treatments prior to arrival: none Related Data Previous Rx's Medication Instructions Recorded insulin glargine 100 unit/mL 10 unit (0.1 mL) SUBCUT DAILY #1 ml 11/06/20 subcutaneous solution (Lantus U-100 Insulin) insulin lispro 100 unit/mL See Protocol SUBCUT QIDACHS #1 ml 11/06/20 subcutaneous solution (Humalog U-100 Insulin) Allergies Allergy/AdvReac Type Severity Reaction Status Date / Time Sulfa (Sulfonamide Allergy Mild RASH Verified 11/02/20 10:47 Antibiotics) [Sulfa (Sulfonamides)] Review of Systems Review of Systems: Constitutional : No Fever, No Chills ENT/Mouth : No Ear Pain, No Nasal Congestion, No sore throat Eyes: No Eye Pain, No Swelling, No Redness Cardiovascular : No Chest Pain, No SOB Respiratory : No Cough, No Sputum, No Dyspnea Gastrointestinal : No Nausea, No Vomiting, No Diarrhea, No Hematochezia, No Melena Genitourinary : No Dysuria, No Urinary Frequency, No Hematuria Musculoskeletal : No Myalgias Skin : No Skin Lesions, No rash Neuro : No Weakness, No Numbness, No Paresthesias, No Dizziness, No Headache Psych : no Anxiety, no Depression, no SI/HI All other systems reviewed and are negative PMFSH Past Medical History Source: old records reviewed Medical History Acute hyperglycemia Acute renal failure AIDS Anxiety Bacteremia Cellulitis of right leg Depression Diabetes Drug abuse Hepatitis C HIV (human immunodeficiency virus infection) HTN (hypertension) MSSA bacteremia Opiate abuse, continuous Septic arthritis of knee, right Surgical History History of repair of laceration Family History Family History Father Alcoholism Mother Type 2 diabetes mellitus Sister No problems noted. Sister No problems noted. Brother No problems noted. Son No problems noted. Social History Social History Household Members: None Housing: Apartment Do you presently have visiting nurse or other home services: No Alcohol intake: current Alcohol intake frequency: does not drink Cigarette Packs Per Day: 0.5 Cigarettes Per Day: 10.0 Years Smoked: 23 Second Hand Smoke Exposure: No Substance Use Type: Heroin Advance Directives: No Advance Directives Information Provided: No service: No Current occupational status: unemployed Physical Exam ED Vital Signs: Vital Signs - 24 hr 03/13/22 21:53 03/14/22 02:03 Temperature 97.9 F 98.4 F Pulse Rate 84 61 Respiratory Rate 16 17 Blood Pressure 110/64 119/61 Pulse Oximetry 98 100 BMI result Body Mass Index 21.9 Appearance: Alert. Oriented X3. No acute distress. Eyes: Pupils equal, round and reactive to light. ENT: Pharynx normal. Atraumatic Neck: Normal inspection. Neck supple. CVS: Normal heart rate and rhythm. Pulses normal. Respiratory: No respiratory distress. Breath sounds normal. Abdomen: Soft and non-tender. Skin: Skin warm and dry. Normal skin color. Normal skin turgor. Extremities: No lower extremity edema. No calf ttp Neuro: Oriented X 3. No motor deficit. No sensory deficit. CN 2-12 intact. Steady gait Course Course Course Narrative: Patient placed in physician observation at 437am. The indication for observation is that the patient needs more time clinically sober up after using drugs and drinking. He denies SI but does not have a safe discharge plan. BS remains stable. Dispo per clinical improvement and sobriety. Physician observation ended at 615am. Clinically sober, steady gait, GCS 15, now aware of hsi address remembers events. NAD, lungs clear, CV RRR, Abd nontender, Neuro intact. Disposition is for home. MDM - Alcohol MDM Narrative Medical decision making narrative: 56 yo male with hx of DM, substance abuse, states he was drinking tonight then couldn't remember how to get home so he called the police. They brought him to the hospital. He has no complaints, BS 98, no signs of trauma no SI. will allow him to metabolize here and DC home once clinically sober. Lab Data Labs: Lab Results 03/13/22 03/13/22 03/14/22 Range/Units 22:13 22:29 01:53 POC Glucose 78 (60-115) mg/dL Urine Color Urine Appearance Urine pH (5.0-8.0) Ur Specific [place] (1.005-1.025) Urine Protein (NEG-TRACE) MG/DL Urine Glucose (UA) (NEG) MG/DL Urine Ketones (NEG) MG/DL Urine Blood (NEG) Urine Nitrite (NEG) Ur Leukocyte Esterase (NEG) Urine RBC (0) /HPF Urine WBC (0-4) /HPF Ur Squamous Epith Cells /LPF Urine Bacteria /LPF Urine Opiates Screen POSITIVE H (Not Detect) Urine Fentanyl Screen POSITIVE H (Not Detect) Ur Barbiturates Screen Not Detected (Not Detect) Ur Phencyclidine Scrn Not Detected (Not Detect) Ur Amphetamines Screen Not Detected (Not Detect) U Benzodiazepines Scrn Not Detected (Not Detect) Urine Cocaine Screen Not Detected (Not Detect) U Marijuana (THC) Screen Not Detected (Not Detect) COVID-19 (THEA) Negative (Negative) COVID-19 Clin Com See Note 03/14/22 03/14/22 Range/Units 01:53 06:03 POC Glucose 74 (60-115) mg/dL Urine Color YELLOW Urine Appearance HAZY Urine pH 5.5 (5.0-8.0) Ur Specific [place] 1.020 (1.005-1.025) Urine Protein TRACE (NEG-TRACE) MG/DL Urine Glucose (UA) NEG (NEG) MG/DL Urine Ketones NEG (NEG) MG/DL Urine Blood 2+ H (NEG) Urine Nitrite POS H (NEG) Ur Leukocyte Esterase 2+ H (NEG) Urine RBC 1-4 (0) /HPF Urine WBC 10-14 H (0-4) /HPF Ur Squamous Epith Cells TRACE /LPF Urine Bacteria 3+ /LPF Urine Opiates Screen (Not Detect) Urine Fentanyl Screen (Not Detect) Ur Barbiturates Screen (Not Detect) Ur Phencyclidine Scrn (Not Detect) Ur Amphetamines Screen (Not Detect) U Benzodiazepines Scrn (Not Detect) Urine Cocaine Screen (Not Detect) U Marijuana (THC) Screen (Not Detect) COVID-19 (THEA) (Negative) COVID-19 Clin Com Discharge Plan Discharge Clinical Impression: Polysubstance abuse Alcoholic intoxication Qualifiers: Complication of substance-induced condition: uncomplicated Qualified Code(s): F10.920 - Alcohol use, unspecified with intoxication, uncomplicated Patient Disposition: Home, Self-Care Instructions: Alcohol Intoxication (ED), Polysubstance Abuse (ED) Additional Instructions: return to ED for any worsening symptoms or concerns stop using drugs Prescriptions: No Action Lantus U-100 Insulin 100 unit/mL Solution 10 unit subcut DAILY Qty: 1 0RF insulin lispro [Humalog U-100 Insulin] 100 unit/mL Solution See Protocol unit subcut QIDACHS Qty: 1 0RF Protocol: Insulin Correction Scale Less than or equal to 110 ---- Give (units): 0 111 to 150 Give (units): 0 151 to 200 Give (units): 0 201 to 250 Give (units): 3 251 to 300 Give (units): 6 301 to 350 Give (units): 8 Greater than 350 Give (units): 10 Call MD if Blood Glucose > : 350
--- NOTE | 2022-03-13 22:30 | PC.NURSE ---
POC 78 at 2229, 4 ounces of Apple Juice offered/accepted, pending urine sample, no blood lab order, will continue to monitor.
[2022-03-13 22:31] LABS: Glucose, Whole Blood 78 mg/dL (60-115)
[2022-03-13 22:34] LABS: COVID-19 Test Negative (Negative)
[2022-03-14 02:03] VITALS: BP 119/61; PULSE 61; RESP 17; TEMP 36.9; O2SAT 100
[2022-03-14 02:10] LABS: Appearance Urine HAZY; Color Urine YELLOW; Glucose Urine UA NEG (NEG); Leukocyte Esterase Urine 2+ (NEG); Nitrite Urine POS (NEG); PH 5.5 (5.0-8.0); Urine Blood 2+ (NEG); Urine Ketones NEG (NEG); Urine Protein TRACE MG/DL (NEG-TRACE)
[2022-03-14 02:23] LABS: Bacteria Urine 3+ /LPF; Squamous Epithelial Cell Urine TRACE /LPF
[2022-03-14 02:25] LABS: Amphetamine Screen Urine Not Detected (Not Detect); Barbiturates, Urine Not Detected (Not Detect); Benzodiazepines Screen Urine Not Detected (Not Detect); Cannabinoid Screen Urine Not Detected (Not Detect); Cocaine Screen Urine Not Detected (Not Detect); Fentanyl, urine POSITIVE (Not Detect); Opiate Screen Urine POSITIVE (Not Detect); Phencyclidine Screen Urine Not Detected (Not Detect)
--- NOTE | 2022-03-14 05:58 | PC.NURSE ---
Patient slept through the night, no distress observed/reported, behavior appropriate and non concerning, patient is off his medication for over a year, disposition per provider is sober out and discharge in the morning, POC 74 at 0603, denied SI/HI/AVH, VSS, will continue to monitor.
[2022-03-14 06:08] LABS: Glucose, Whole Blood 74 mg/dL (60-115)
== END 2022-03-14 06:52 | disposition home or self-care (01) ==
PROVIDERS: Emergency Provider Emergency Medicine
DX: F19.10 Other psychoactive substance abuse, uncomplicated (principal); F10.920 Alcohol use, unspecified with intoxication, uncomplicated; Y90.9 Presence of alcohol in blood, level not specified; Z20.822 Contact with and (suspected) exposure to COVID-19; F11.10 Opioid abuse, uncomplicated; F17.200 Nicotine dependence, unspecified, uncomplicated; E11.9 Type 2 diabetes mellitus without complications; B20 Human immunodeficiency virus [HIV] disease; Z79.4 Long term (current) use of insulin
CPT/HCPCS: 80307; 81001; 81003; 82947; 87086; 87088; 87186; 87635; 99283

== ENCOUNTER 2022-03-31 15:28 | Emergency (ER) | payer OTHER, SELFPAY ==
--- NOTE | ~2022-03-31 | XR_ITS ---
EXAMINATION: XR CHEST CLINICAL INFORMATION: Cough. COMPARISON: 10/27/2020 chest radiograph. TECHNIQUE: Frontal view of the chest was obtained. FINDINGS: No significant abnormality is noted involving the heart, lungs, mediastinum, bony thorax or soft tissues. XR/XR chest 1V IMPRESSION: No acute cardiopulmonary process.
[2022-03-31 16:06] VITALS: BP 88/61; PULSE 100; PULSE 108; RESP 18; TEMP 36.8; O2SAT 100; O2SAT 99; BMI 13.9
--- NOTE | 2022-03-31 16:39 | ED.GENADULT ---
HPI - General Adult General Chief complaint: General Medical Stated complaint: feeling unwell Time Seen by Provider: 03/31/22 16:18 Source: patient and EMS Mode of arrival: EMS Limitations: no limitations History of Present Illness HPI narrative: 56-year-old male presents via EMS for feeling unwell. States that he has had vomiting, diarrhea and fevers since yesterday. Onset (ago): day(s) (1) Radiation: non-radiation Severity: mild Quality: aching Relieving factors: none Exacerbating factors: none Associated symptoms: fever/chills, loss of appetite and nausea/vomiting Treatments prior to arrival: none Related Data Previous Rx's Medication Instructions Recorded insulin glargine 100 unit/mL 10 unit (0.1 mL) subcut DAILY #1 mL 11/06/20 subcutaneous solution (Lantus U-100 Insulin) insulin lispro 100 unit/mL See Protocol subcut QIDACHS #1 mL 11/06/20 subcutaneous solution (Humalog U-100 Insulin) Allergies Allergy/AdvReac Type Severity Reaction Status Date / Time Sulfa (Sulfonamide Allergy Mild RASH Verified 11/02/20 10:47 Antibiotics) [Sulfa (Sulfonamides)] Review of Systems Review of Systems: Constitutional: Positive Fever, No Chills ENT/Mouth: No Ear Pain, No Hoarseness, No sore throat Eyes: No Eye Pain, No Swelling, No Redness, No Foreign Body Cardiovascular: No Chest Pain, No SOB Respiratory: No Cough, No Dyspnea Gastrointestinal: Positive Nausea, positive Vomiting, positive Diarrhea, No abdominal Pain Genitourinary: No Dysuria, No Hematuria Musculoskeletal: No joint pain, No Myalgias, No Joint Swelling Skin: No Skin lacerations, No rash Neuro: No Weakness, No Numbness, No Paresthesias, No Loss of Consciousness, No Dizziness, No Headache Psych: No Anxiety/Panic, No Depression Heme/Lymph: no easy bruising, no Lymphadenopathy Endocrine: No Polyuria, No Polydipsia Yes all other systems are reviewed and are negative [facility] Past Medical History Attestation statement: The following information was validated with the patient. Source: old records reviewed Medical History Acute hyperglycemia Acute renal failure AIDS Anxiety Bacteremia Cellulitis of right leg Depression Diabetes Drug abuse Hepatitis C HIV (human immunodeficiency virus infection) HTN (hypertension) MSSA bacteremia Opiate abuse, continuous Septic arthritis of knee, right Surgical History History of repair of laceration Family History Family History Father Alcoholism Mother Type 2 diabetes mellitus Sister No problems noted. Sister No problems noted. Brother No problems noted. Son No problems noted. Social History Social History Household Members: None Housing: Apartment Do you presently have visiting nurse or other home services: No Alcohol intake: current Alcohol intake frequency: holidays/special occasions only Patient Tobacco Use Status: Current everyday Tobacco user Cigarette Packs Per Day: 0.5 Cigarettes Per Day: 10.0 Years Smoked: 23 Second Hand Smoke Exposure: No Use of substances other than those prescribed or required for medical reasons: No Substance Use Type: Heroin Advance Directives: No Advance Directives Information Provided: No service: No Current occupational status: unemployed Physical Exam ED Vital Signs: Vital Signs - 24 hr 03/31/22 16:06 Temperature 98.3 F Pulse Rate 100 Respiratory Rate 18 Pulse Oximetry 99 Oxygen Delivery Method Room Air BMI result Body Mass Index 13.9 Appearance: Alert. Oriented X3. No acute distress. Cachectic. Eyes: Pupils equal, round and reactive to light. ENT: Pharynx normal. Neck: Normal inspection. Neck supple. CVS: Normal heart rate and rhythm. Pulses normal. Respiratory: No respiratory distress. Breath sounds normal. Abdomen: Soft and nontender. Skin: Skin warm and dry. Normal skin color. Normal skin turgor. Extremities: No lower extremity edema. Moves all extremities against resistance. Neuro: No motor deficit. No sensory deficit. Cranial nerves 2-12 intact. Course Course Course Narrative: 56-year-old male past medical history HIV aids, renal failure, opioid abuse, medical noncompliance presents via EMS for feeling unwell. States that he has had nausea, vomiting, diarrhea and subjective fevers for 1 day. Will order CBC, Chem 7, chest x-ray, urinalysis COVID, and influenza. Review of records indicates patient's last visit he was treated for UTI. 16:40 x-rays negative for acute findings. 16:42 patient states that he does not want have any more testing and would like to leave. This BILINGUAL HR GENERALIST and multiple RNs had conversations with this patient. Patient is adamant about leaving against medical advice. Patient is alert oriented x4. Answering questions appropriately. Understands risks versus benefits of completing care. Medical Decision Making Differential Diagnosis Differential Diagnosis: COVID, influenza, viral syndrome Medical Records Medical records reviewed: Yes I reviewed the patient's medical records. Imaging Data Chest x-ray: Attestation: I personally reviewed and interpreted this imaging study as follows: Radiologist's impression: EXAMINATION: XR CHEST CLINICAL INFORMATION: Cough. COMPARISON: 10/27/2020 chest radiograph. TECHNIQUE: Frontal view of the chest was obtained. FINDINGS: No significant abnormality is noted involving the heart, lungs, mediastinum, bony thorax or soft tissues. XR/XR chest 1V IMPRESSION: No acute cardiopulmonary process. Discharge Plan Discharge Clinical Impression: AIDS, Fever, Nausea vomiting and diarrhea Patient Disposition: Left Against Medical Advice Instructions: Acute Nausea and Vomiting (ED), Acute Diarrhea (ED), AIDS (DC) Additional Instructions: You are leaving against medical advice. You more than welcome to return to complete care. Thank you for choosing this emergency department for evaluation. Please follow-up with primary care physician as needed. Return to the emergency department for any new, concerning, or worsening symptoms. Prescriptions: No Action Lantus U-100 Insulin 100 unit/mL Solution 10 unit subcut DAILY Qty: 1 0RF insulin lispro [Humalog U-100 Insulin] 100 unit/mL Solution See Protocol subcut QIDACHS Qty: 1 0RF Protocol: Insulin Correction Scale Less than or equal to 110 ---- Give (units): 0 111 to 150 Give (units): 0 151 to 200 Give (units): 0 201 to 250 Give (units): 3 251 to 300 Give (units): 6 301 to 350 Give (units): 8 Greater than 350 Give (units): 10 Call MD if Blood Glucose > : 350 Stand Alone Forms: Against Medical Advice Interventions: ED Discharge Assessment Last Done: 03/31/22 16:58 Discharge Date/Time: 03/31/22 17:01
== END 2022-03-31 17:01 | disposition left against medical advice (07) ==
PROVIDERS: Emergency Provider Internal Medicine
DX: R11.2 Nausea with vomiting, unspecified (principal); R19.7 Diarrhea, unspecified; R50.9 Fever, unspecified; B20 Human immunodeficiency virus [HIV] disease; E11.9 Type 2 diabetes mellitus without complications; Z79.4 Long term (current) use of insulin; F17.200 Nicotine dependence, unspecified, uncomplicated; F11.10 Opioid abuse, uncomplicated; Z91.19 Patient's noncompliance with other medical treatment and regimen
CPT/HCPCS: 71045; 99283

== ENCOUNTER 2022-04-08 13:39 | Inpatient (IN) | payer OTHER, SELFPAY ==
[2022-04-08] VITALS (10 sets, daily range): BP systolic 94–120; BP diastolic 57–76; PULSE 83–101; RESP 16; TEMP 36.2–36.8; O2SAT 97–100; BMI 13.6
--- NOTE | ~2022-04-08 | CT_ITS ---
EXAMINATION: CT ABDOMEN AND PELVIS WITHOUT CONTRAST CLINICAL INFORMATION: Abdominal pain, failure to thrive, HIV positive. COMPARISON: CT scan of the abdomen and pelvis dated 07/07/2020. TECHNIQUE: Multidetector volumetric imaging was performed from the superior aspect of the liver through the pubic symphysis. Sagittal and coronal reformatted images were obtained on the technologist's workstation. Lack of intravenous and oral contrast as well as intraperitoneal fat limits evaluation. This CT examination was performed using dose optimization techniques as appropriate, variously including the following: *Automated exposure control *Adjustment of mA and/or kV according to patient size (this includes techniques or standardized protocols for targeted exams where dose is matched to indication/reason for exam; i.e. extremities or head) *Use of iterative reconstruction technique DLP: 814 mGy-cm FINDINGS: LUNG BASES: The visualized lung bases are unremarkable. LIVER, GALLBLADDER, AND BILIARY TREE: No hepatic abnormality. Coarsely calcified gallstones are seen within the gallbladder lumen measuring 1.7 cm towards the fundus (image 59, series 6) and 1.6 cm posterior to the neck (image 55, series 6). PANCREAS: Unremarkable. SPLEEN: 13.9 cm without focal abnormality (image 60, series 6). ADRENAL GLANDS: Unremarkable. KIDNEYS AND URETERS: The kidneys are normal in size, shape, and attenuation. No hydronephrosis, hydroureter, or calculi seen. No perinephric stranding. BLADDER: Unremarkable. GASTROINTESTINAL TRACT: Moderate gaseous distention of the stomach without focal abnormality. The small bowel is unremarkable. No evidence for acute appendicitis. The colon and rectum are unremarkable.. ABDOMINAL WALL: No significant hernia is appreciated. LYMPH NODES: No lymphadenopathy. VASCULAR: Unremarkable. PELVIC VISCERA: Unremarkable. OSSEOUS STRUCTURES: Unremarkable. CT/CT abdomen pelvis wo con IMPRESSION: Limited study as detailed above. No definitive acute intra-abdominal/pelvic abnormality. Cholelithiasis without evidence for acute cholecystitis. Fleischner guidelines were followed.
--- NOTE | ~2022-04-08 | CT_ITS ---
EXAMINATION: CT HEAD WITHOUT CONTRAST CLINICAL INFORMATION: Fall COMPARISON: Previous head CT and brain MRI most recent 04/10/2022 TECHNIQUE: Contiguous axial imaging was performed from the skull base to vertex without intravenous administration of contrast. This CT examination was performed using dose optimization techniques as appropriate, variously including the following: *Automated exposure control *Adjustment of mA and/or kV according to patient size (this includes techniques or standardized protocols for targeted exams where dose is matched to indication/reason for exam; i.e. extremities or head) *Use of iterative reconstruction technique DLP: 699 mGy-cm FINDINGS: There is no evidence of an extra-axial collection. The large heterogeneous lesion in the left occipital lobe, posterior left temporal lobe, involving the corpus callosum and possibly some of the medial right temporal lobe does not appear changed. This is overall low in attenuation with small high attenuation foci suggestive of intraparenchymal hemorrhage. There may be a small amount of hemorrhage seen in the posterior horn of the left lateral ventricle. There may be a small amount of hemorrhage seen in the right basal ganglia. These findings are unchanged from earlier imaging March 2022. No new mass or mass effect is seen. The ventricles and extra-axial CSF spaces are otherwise appropriate. No skull fracture is seen. There is evidence of old trauma to the left side of the face with plates and screws. There is poor dentition. CT/CT head/brain wo con IMPRESSION: No acute intracranial findings. Stable appearance to the large heterogeneous appearing mass and small areas of hemorrhage compared to March 2022 imaging.
--- NOTE | ~2022-04-08 | MR_ITS ---
EXAMINATION: MR BRAIN WITHOUT CONTRAST CLINICAL INFORMATION: Left occipital abnormality. Compression bleed. GB toxo. AIDS. COMPARISON: Head CT 04/10/2022. TECHNIQUE: Multiplanar, multisequence imaging of the brain was performed without intravenous contrast. FINDINGS: There is extensive expansile signal abnormality within the left occipital lobe and posterior temporal lobe with confluent mildly expansile T2/FLAIR hyperintensity. A mild amount of T2/FLAIR hyperintensity is also seen within the right occipital lobe. There is cortical laminar necrosis seen throughout this region with intrinsic T1 hyperintensity in the cortex. Expansile T2/FLAIR hyperintensity is seen involving the bilateral left more than right parahippocampal gyri and partly involving the corpus callosum splenium on the left side more than the right with some associated hypercellularity demonstrated within this region. Mildly expansile T2 hyperintensity is seen within the right basal ganglia and right inferior frontal lobe deep white matter with associated T1 hyperintensity likely reflecting areas of subacute hemorrhage. Small amount of cortical T1 hyperintensity/hemorrhage are also seen within the right posterior parietal and occipital lobe. A small amount of layering hemorrhage is seen within the left occipital horn. There is no evidence of territorial infarction. Small foci of elevated disc is severe seen within the cortex of the right and left parietal lobes (series 4 image 25 and 23). There is no midline shift or downward herniation. No hydrocephalus is seen. Nonspecific foci of T2/FLAIR hyperintensity are seen within the white matter. The major arterial flow voids are preserved at the skull base. The extracranial structures are within normal limits. MR/MR head/brain wo con IMPRESSION: Extensive heterogeneous mildly expansile T2/FLAIR hyperintensity noted involving the left occipital and posterior temporal lobe and to lesser extent in the right occipital lobe. Confluent signal abnormality is seen extending into the left more than right parahippocampal gyri and corpus callosum splenium. Cortical laminar necrosis is seen scattered throughout this region. Possible etiologies include immunodeficiency associated LEATHER COLORER lymphoma or toxoplasmosis. A primary glial neoplasm is difficult to exclude. Posterior reversible encephalopathy syndrome considered but is felt to be less likely T2 hyperintensity and hemorrhage is seen within the right basal ganglia and right inferior frontal lobe white matter could represent a manifestation of toxoplasmosis. Small foci of subacute infarction seen in the bilateral parietal lobes. Small amount of layering hemorrhage seen within the left occipital horn.
--- NOTE | ~2022-04-08 | XR_ITS ---
EXAMINATION: XR CHEST CLINICAL INFORMATION: Weakness. COMPARISON: Chest 03/31/2022 TECHNIQUE: Frontal view of the chest was obtained. FINDINGS: The lungs are hypoexpanded but clear. There is a former sclerotic density overlying the left anterior fourth rib question nodule versus small bone island in the left fourth rib. Heart size and pulmonary vascularity is normal. No gross bony abnormality seen. XR/XR chest 1V IMPRESSION: Unremarkable chest exam. No change from 03/31/2022
--- NOTE | ~2022-04-08 | CT_ITS ---
EXAMINATION: CT HEAD WITHOUT CONTRAST CLINICAL INFORMATION: Change in mental status. Evaluate for hemorrhage or stroke. COMPARISON: CT scan of the head 08/18/2012. TECHNIQUE: Contiguous axial imaging was performed from the skull base to vertex without intravenous administration of contrast. This CT examination was performed using dose optimization techniques as appropriate, variously including the following: *Automated exposure control *Adjustment of mA and/or kV according to patient size (this includes techniques or standardized protocols for targeted exams where dose is matched to indication/reason for exam; i.e. extremities or head) *Use of iterative reconstruction technique DLP: 814 mGy-cm FINDINGS: There is expansile lesion with mixed attenuation involving the left occipital lobe that also appears to involve the splenium of the corpus callosum. Mass effect causes subtle distortion of left atrium. No midline shift or uncal herniation. The calvarium and skull base are intact. Mastoid air cells and middle ear cavities are well aerated. No active paranasal sinus disease. CT/CT head/brain wo con IMPRESSION: There is an expansile lesion involving the left occipital lobe that appears to extend into the splenium of the corpus callosum. This finding is new when compared to prior imaging from 08/18/2012. A dedicated brain MRI without and with contrast is recommended for better anatomic characterization of this finding. Possible diagnostic considerations include a primary intracranial neoplasm, evolving subacute infarct, or intracranial metastatic disease.
--- NOTE | ~2022-04-08 | XR_ITS ---
EXAMINATION: XR BILATERAL HIPS WITH AP PELVIS CLINICAL INFORMATION: Pain after falling COMPARISON: None TECHNIQUE: AP view of the pelvis and single views of each hip were obtained. FINDINGS: Diffuse ileus bowel gas pattern noted. This obscures detail in the pelvis and sacrum. No fractures are observed. AP and oblique views of both hips show no fracture, dislocation or destructive process. XR/XR hip BI w PEL1V IMPRESSION: No fracture or destructive process or alignment abnormality in the hips.
--- NOTE | ~2022-04-08 | XR_ITS ---
EXAMINATION: XR CHEST CLINICAL INFORMATION: Sepsis COMPARISON: Previous chest x-ray 04/08/2022 TECHNIQUE: Frontal view of the chest was obtained. FINDINGS: The cardiac and mediastinal contours are stable. The lungs are well inflated. The lungs are clear without evidence of a pneumonia. There is no pleural effusion or pneumothorax. There is an old right sixth rib fracture. Bony structures are otherwise unremarkable. XR/XR chest 1V IMPRESSION: No evidence for pneumonia.
--- NOTE | ~2022-04-08 | IR_ITS ---
PROCEDURE: IR INSERTION OF PICC CLINICAL INFORMATION: Long-term total parenteral nutrition requirement. COMPARISON: None TECHNIQUE: Procedure, risks and benefits including bleeding, infection and blood clot were discussed with the patient through an mohs surgeon/general dermatologist and informed consent was obtained All elements of maximal sterile barrier technique followed including use of cap, mask, sterile gown, sterile gloves, a sterile full body drape and hand hygiene. Also followed skin preparation with 2% chlorhexidine for cutaneous antisepsis, and sterile ultrasound preparation with sterile gel and probe cover when applicable. The right upper arm was prepped and draped in the usual sterile fashion. Skin and soft tissues were anesthetized with 1% lidocaine plain. Using ultrasound guidance, right brachial vein access was obtained. Over an 0.018 wire and through a peel-away sheath, a 5 Kyr[place]z double-lumen PICC line was inserted. Catheter length is 34 cm. Catheter tip is in the SVC. Real-time ultrasound guidance was used to document vein patency and for needle entry. A formal ultrasound picture was recorded. FLUOROSCOPY TIME: 1.3 minutes. DAP: 23 [id number] FLUOROSCOPIC IMAGES: 1 saved image. FINDINGS: There is a right upper extremity PICC line with tip projecting over the SVC. IR/IR cvc insert peripheral IMPRESSION: Right upper extremity PICC line placement.
--- NOTE | 2022-04-08 14:24 | ED_ITS ---
HPI - Weakness General Chief complaint: Failure to Thrive Stated complaint: WT LOSS,DIFF CARING FO SELF AT HOME Time Seen by Provider: 04/08/22 14:15 Source: patient Mode of arrival: EMS Limitations: no limitations History of Present Illness HPI Narrative: 56-year-old male who was brought to emergency room by ambulance for evaluation of heroin use and failure to thrive. According to the nursing note with emersonr lionel obtain from EMS, patient's neighbors called EMS, patient is not taking care of himself, patient used heroin yesterday. The patient is very cachectic and appears weak. His voice is difficult to comprehend. He states that he is not feeling well but does not had any more information. He does admit to drinking alcohol and the using heroin daily. He states that he snorts 3-4 bags of heroin per day. He states that he has no appetite and the last time he ate food Related Data Home Medications Medication Instructions Recorded Confirmed albuterol sulfate 90 mcg/actuation 2 puff PO Q4-6H PRN Wheezing 04/08/22 aerosol inhaler (Ventolin HFA) fluticasone propionate 44 2 puff PO BID 04/08/22 mcg/actuation HFA aerosol inhaler (Flovent HFA) insulin glargine 100 unit/mL 18 unit subcut BEDTIME 04/08/22 subcutaneous solution (Lantus U-100 Insulin) metformin 850 mg tablet 1 tab PO BID 04/08/22 Previous Rx's Medication Instructions Recorded insulin lispro 100 unit/mL See Protocol subcut QIDACHS #1 mL 11/06/20 subcutaneous solution (Humalog U-100 Insulin) Allergies Allergy/AdvReac Type Severity Reaction Status Date / Time Sulfa (Sulfonamide Allergy Mild RASH Verified 11/02/20 10:47 Antibiotics) [Sulfa (Sulfonamides)] Review of Systems Review of Systems: Yes all other systems are reviewed and are negative PMFSH Past Medical History PMFSH Narrative: Social history: The patient smokes cigarettes. He drinks alcohol daily, uses 3-4 bags of heroin intranasally, daily. Medical History Acute hyperglycemia Acute renal failure AIDS Anxiety Bacteremia Cellulitis of right leg Depression Diabetes Drug abuse Hepatitis C HIV (human immunodeficiency virus infection) HTN (hypertension) MSSA bacteremia Opiate abuse, continuous Septic arthritis of knee, right Surgical History History of repair of laceration Family History Family History Father Alcoholism Mother Type 2 diabetes mellitus Sister No problems noted. Sister No problems noted. Brother No problems noted. Son No problems noted. Social History Social History Household Members: None Housing: Apartment Do you presently have visiting nurse or other home services: No Alcohol intake: current Alcohol intake frequency: holidays/special occasions only Patient Tobacco Use Status: Current everyday Tobacco user Cigarette Packs Per Day: 0.5 Cigarettes Per Day: 10.0 Years Smoked: 23 Second Hand Smoke Exposure: No Use of substances other than those prescribed or required for medical reasons: Yes Substance Use Type: Heroin Advance Directives: No Advance Directives Information Provided: No service: No Current occupational status: unemployed Physical Exam Vital Signs: Vital Signs: Last Vital Signs Temp 97.7 F 04/08/22 15:46 Pulse 101 H 04/08/22 15:46 Resp 16 04/08/22 15:46 BP 118/73 04/08/22 15:46 Pulse Ox 98 04/08/22 15:46 O2 Del Method 04/08/22 15:46 BMI result Body Mass Index 13.6 Const: Other: Awake, alert, patient's voice is very soft and difficult to comprehend, he is very cachectic and appears skeletal, he has severe temporal wasting and is extremely thin Orientation/consciousness: oriented to person HEENT: Ears: external ears normal General nose exam: Normal external nose present Face and sinus: Yes normal facial exam Mouth: other ( very dry mucous membranes) Eyes: General: appearance normal, both eyes and all related structures Pupils: Equal, round and reactive pupils present Neck: Neck: Yes normal visual inspection, Yes no lymphadenopathy, Yes trachea midline and Yes supple Chest: Chest palpation & inspection: normal inspection of the chest and normal palpation of entire chest wall Resp: Effort & Inspection: normal respiratory effort and able to speak in complete sentences Auscultation: clear to auscultation bilaterally Cardio: Rate: regular rate Rhythm: regular rhythm Heart sounds: S1 angela l heart sound present, S2 normal heart sound present and no murmurs GI: Inspection: Yes normal to inspection Palpation (GI): Soft to palpation, nontender and no guarding Auscultation: normal bowel sounds : General: Yes no CVA tenderness Back/Spine/Pelvis: Back: no CVA tenderness Skin: General skin exam: no rashes or lesions noted Neuro: General: oriented to person Cranial nerves: Yes CN's II-XII intact bilaterally and Yes Equal, round and reactive pupils present Cognition (Neuro): normal cognition Motor exam (neuro): 5/5 motor strength present throughout Extrem: General: Yes normal to inspection Course Course Course Narrative: 56-year-old male who was brought to emergency room by ambulance for evaluation of failure to thrive and daily intranasal heroin use. Patient's neighbors were concerned about the patient and called an ambulance. The patient stated that he is not feeling well but cannot elaborate on the details of why he is here. Vital signs initially revealed a blood pressure of 97/63 repeat was 110/72 otherwise unremarkable. Physical examination revealed a skeletal appearing cachectic man, his very dry mucous membranes otherwise exam was unremarkable. The patient's effective state they have is secondary to his HIV disease. He does appear to be very malnourished and dehydrated as well. I did order laboratory evaluation to include CBC, CMP, lipase, troponin,drug screen, EtOH, urinalysis. I will obtain an EKG and chest x-ray. we will attempt to feed the patient as well. 1610: Laboratory evaluation: CBC unremarkable. CMP revealed an elevated sodium 147, elevated chloride 118, low bicarb 18, elevated BUN 129, elevated creatinine 3.0. Elevated total protein 9.7, low albumin 3.3. elevated lipase 215. High sensitive troponin I was elevated at 35. The patient's laboratory evaluation is consistent with dehydration with an elevated sodium and acute kidney injury secondary to volume depletion. Patient also has an elevated protein gap which is concerning for possible gamma globulinemia or this may be secondary to his HIV disease. Given these findings, the patient will need to be admitted for further evaluation. The patient was ordered to get normal saline x1 L and D5 1/2 normal saline 125 cc an hour. 16 40: I did discuss the patient's presentation with the covering hospitalist Dr. Marinelli the patient will be admitted for further management. MDM - Weakness Lab Data Result diagrams: 04/08/22 14:42 04/08/22 14:42 Labs: Lab Results 04/08/22 04/08/22 04/08/22 Range/Units 14:42 14:42 14:42 WBC 6.2 (4.8-10.8) X10*3/uL RBC 4.18 L (4.60-5.80) X10*6/uL Hgb 12.4 L (14.0-18.0) g/dl Hct 37.5 L (42.0-52.0) % MCV 89.7 (80.0-98.0) fL MCH 29.7 (27.0-33.0) pg MCHC 33.1 (31.0-36.0) g/dl RDW 17.3 H (11.0-16.0) % Plt Count TNP MPV 10.9 (9.4-12.4) fL Immature Gran % (Auto) Cancelled Neut % (Auto) Cancelled Lymph % (Auto) Cancelled [place] % (Auto) Cancelled Eos % (Auto) Cancelled Baso % (Auto) Cancelled Lymph # (Auto) Cancelled [place] # (Auto) Cancelled Eos # (Auto) Cancelled Baso # (Auto) Cancelled Abs Immat Gran (auto) Cancelled Absolute Neuts (auto) Cancelled Absolute Nucleated RBC 0.000 (0.0-0.012) X10*3/uL Nucleated RBC % (auto) 0.0 (0.0-0.2) /100WBC Neutrophils % (Manual) 81 H (45-73) % Band Neutrophils % 2 L (3-5) % Lymphocytes % (Manual) 11 L (20-40) % Monocytes % (Manual) 5 (2-11) % Metamyelocytes % 1 % Abs Neuts (Manual) 5.1 (2.0-8.3) X10*3/uL Lymphocytes # (Manual) 0.7 L (1.2-4.9) X10*3/uL Monocytes # (Manual) 0.3 (0.1-1.2) X10*3/uL Metamyelocytes # 0.1 X10*3/uL Hypersegmented Neuts PRESENT Smudge Cells PRESENT Toxic Granulation PRESENT Toxic Vacuolation PRESENT Platelet Estimate DECREASED (NORMAL) Large Platelets PRESENT Plt Morphology Comment NOTED RBC Morphology NOTED Polychromasia 1+ (0-2) /OIF Macrocytosis 1+ (5-14) /OIF Ovalocytes 1+ (5-14) /OIF Maryanne Cells 3+ (>5) /OIF Sodium 147 H (135-145) mmol/L Potassium 4.6 (3.3-5.1) mmol/L Chloride 118 H D (96-108) mmol/L Carbon Dioxide 18 L (22-29) mmol/L Anion Gap 16 (12-20) BUN 129 H (9-16) mg/dL Creatinine 3.04 H (0.5-1.4) mg/dL Estim Creat Clear Calc 14.7 Estimated GFR 21 Random Glucose 202 H (60-115) mg/dL Calcium 9.5 D (8.4-10.2) mg/dL Total Bilirubin 1.0 (0.0-1.0) mg/dL AST 22 (5-37) U/L ALT 11 (0-40) U/L Alkaline Phosphatase 62 D (39-117) U/L Troponin I High Sens 35.3 H (<3.5-35.0) ng/L Total Protein 9.7 H D (6.5-8.0) g/dL Albumin 3.3 L D (3.5-5.0) g/dL Lipase 215 H (8-78) U/L Ethyl Alcohol mg/dL COVID-19 (THEA) (Negative) COVID-19 Clin Com Influenza Type A (SHREYAS) (Negative) Influenza Type B (SHREYAS) (Negative) Influenza A & B Note 04/08/22 04/08/22 04/08/22 Range/Units 14:42 14:42 14:42 WBC (4.8-10.8) X10*3/uL RBC (4.60-5.80) X10*6/uL Hgb (14.0-18.0) g/dl Hct (42.0-52.0) % MCV (80.0-98.0) fL MCH (27.0-33.0) pg MCHC (31.0-36.0) g/dl RDW (11.0-16.0) % Plt Count MPV (9.4-12.4) fL Immature Gran % (Auto) Neut % (Auto) Lymph % (Auto) [place] % (Auto) Eos % (Auto) Baso % (Auto) Lymph # (Auto) [place] # (Auto) Eos # (Auto) Baso # (Auto) Abs Immat Gran (auto) Absolute Neuts (auto) Absolute Nucleated RBC (0.0-0.012) X10*3/uL Nucleated RBC % (auto) (0.0-0.2) /100WBC Neutrophils % (Manual) (45-73) % Band Neutrophils % (3-5) % Lymphocytes % (Manual) (20-40) % Monocytes % (Manual) (2-11) % Metamyelocytes % % Abs Neuts (Manual) (2.0-8.3) X10*3/uL Lymphocytes # (Manual) (1.2-4.9) X10*3/uL Monocytes # (Manual) (0.1-1.2) X10*3/uL Metamyelocytes # X10*3/uL Hypersegmented Neuts Smudge Cells Toxic Granulation Toxic Vacuolation Platelet Estimate (NORMAL) Large Platelets Plt Morphology Comment RBC Morphology Polychromasia /OIF Macrocytosis /OIF Ovalocytes /OIF [place] Cells /OIF Sodium (135-145) mmol/L Potassium (3.3-5.1) mmol/L Chloride (96-108) mmol/L Carbon Dioxide (22-29) mmol/L Anion Gap (12-20) BUN (9-16) mg/dL Creatinine (0.5-1.4) mg/dL Estim Creat Clear Calc Estimated GFR Random Glucose (60-115) mg/dL Calcium (8.4-10.2) mg/dL Total Bilirubin (0.0-1.0) mg/dL AST (5-37) U/L ALT (0-40) U/L Alkaline Phosphatase (39-117) U/L Troponin I High Sens (<3.5-35.0) ng/L Total Protein (6.5-8.0) g/dL Albumin (3.5-5.0) g/dL Lipase (8-78) U/L Ethyl Alcohol < 10 mg/dL COVID-19 (THEA) Negative (Negative) COVID-19 Clin Com See Note Influenza Type A (SHREYAS) Negative (Negative) Influenza Type B (SHREYAS) Negative (Negative) Influenza A & B Note See Note Discharge Plan Discharge Clinical Impression: Adult failure to thrive, Acute kidney injury, Acute dehydration, Volume depletion Patient Disposition: Admitted As Inpatient
--- NOTE | 2022-04-08 14:27 | ECG_ITS ---
Test Reason : FAILURE TO TRIVE Blood Pressure : / mmHG Vent. Rate : 091 BPM Atrial Rate : 091 BPM P-R Int : 106 ms QRS Dur : 082 ms QT Int : 362 ms P-R-T Axes : 087 082 086 degrees QTc Int : 445 ms Sinus rhythm with short TX Septal infarct , age undetermined Abnormal ECG When compared with ECG of 27-OCT-2020 18:39, Septal infarct is now Present Nonspecific T wave abnormality no longer evident in Inferior leads Referred By: Dajuan Austin Electronically Signed By:Ronak Carson
[2022-04-08 14:50] LABS: Hematocrit 37.5 % (42.0-52.0); Hemoglobin 12.4 g/dl (14.0-18.0); Mean Corpuscular HGB Conc 33.1 g/dl (31.0-36.0); Mean Corpuscular Hemoglobin 29.7 pg (27.0-33.0); Mean Corpuscular Volume 89.7 fL (80.0-98.0); Mean Platelet Volume 10.9 fL (9.4-12.4); Red Blood Count 4.18 X10*6/uL (4.60-5.80); Red Cell Distribution Width 17.3 % (11.0-16.0); White Blood Count 6.2 X10*3/uL (4.8-10.8)
[2022-04-08 15:04] LABS: Ethanol < 10 mg/dL
[2022-04-08] MEDS: 0.9 % Sodium Chloride 1,000 ML 999 ML IV (15:06)
[2022-04-08 15:08] LABS: COVID-19 Test Negative (Negative); IDNOW Serial# 9DB6401D; Influenza A Negative (Negative); Influenza B2 Negative (Negative)
[2022-04-08 15:16] LABS: Alanine Aminotransferase 11 U/L (0-40); Albumin Level 3.3 g/dL (3.5-5.0); Alkaline Phosphatase 62 U/L (39-117); Anion Gap 16 (12-20); Aspartate Amino Transferase 22 U/L (5-37); Calcium 9.5 mg/dL (8.4-10.2); Carbon Dioxide 18 mmol/L (22-29); Chloride 118 mmol/L (96-108); Creatinine Clr Calc Pharmacy 14.7; Estimated Glomerular Filt Rate 21; Glucose Random 202 mg/dL (60-115); Lipase 215 U/L (8-78); Potassium 4.6 mmol/L (3.3-5.1); Sodium 147 mmol/L (135-145); Total Protein 9.7 g/dL (6.5-8.0)
[2022-04-08 15:17] LABS: Troponin-I High Sensitivity 35.3 ng/L (<3.5-35.0)
[2022-04-08 15:32] LABS: Blood Urea Nitrogen 129 mg/dL (9-16)
--- NOTE | 2022-04-08 15:35 | PC.NURSE ---
pt alert but drowsy at times, will answer question appropriately, pt appears very malnourished, face sunken in, ribs visible, unkept hygiene, respirations even and unlabored, vs stable, pt denies pain
--- NOTE | 2022-04-08 15:47 | PC.NURSE ---
PATIENT WAS INC OF URINE ,CARE GIVEN AND PATIENT CHANGE INTO HOSPITAL ATTIRE .
[2022-04-08 16:00] LABS: Band Neutrophils Percent 2 % (3-5); Lymphocytes Absolute Manual 0.7 X10*3/uL (1.2-4.9); Lymphocytes Percent Manual 11 % (20-40); Metamyelocytes Absolute 0.1 X10*3/uL; Metamyelocytes Percent 1 %; Monocytes Absolute Manual 0.3 X10*3/uL (0.1-1.2); Monocytes Percent Manual 5 % (2-11); Neutrophils Absolute Manual 5.1 X10*3/uL (2.0-8.3); Neutrophils Percent Manual 81 % (45-73)
[2022-04-08 16:01] LABS: Macrocytosis 1+ (5-14) /OIF; RBC Morphology NOTED
[2022-04-08 16:02] LABS: Large Platelet PRESENT; Ovalocytes 1+ (5-14) /OIF; Platelet Estimate DECREASED (NORMAL); Platelet Morphology Comment NOTED
[2022-04-08 16:03] LABS: Burr Cells 3+ (>5) /OIF; Hypersegmented Neutrophils PRESENT; Polychromasia 1+ (0-2) /OIF; Smudge Cells PRESENT; Toxic Granulation PRESENT; Toxic Vacuolation PRESENT
[2022-04-08] MEDS: Dextrose 5 % and 0.45 % NaCl 1,000 ML 125 ML IVCONT (16:48)
[2022-04-08 17:19] LABS: TSH reflex Free T4 0.78 uIU/mL (0.32-4.0)
--- NOTE | 2022-04-08 18:01 | PHA.MEDREC ---
Pharmacy Consult ? Medication Reconciliation Pharmacy has completed the medication reconciliation. Patient is very weak and unable to answers questions other than yes/no . I went over his fill history. Through directed questioning, he has not seen his doctor or taken medications >1 month. He did respond yes when asked if he is SUPPOSED to be on medications including the biktarvy. He does not live with anyone and no one handles his medication. Called emergency contact. Will try and call PCP on saturday to see if PCP has other meds on list.
--- NOTE | 2022-04-08 18:42 | PC.NURSE ---
Addendum entered by Devika Higgins 04/08/22 18:44: pt given his dinner tray but refused to eat, did drink one cup of oj earlier Original Note: pt incontinent of urine, cleaned up and out into clean hospital attire vs stable
--- NOTE | 2022-04-08 19:30 | PC.NURSE ---
LAKEISHA CLINE IS AWARE THAT PATIENT REFUSED HIS TROP ,ALSO HIS DINNER .
--- NOTE | 2022-04-08 19:31 | PC.NURSE ---
pt refusing blood work and straight cath for urine sample at this time, pt incontinent of urine so unable to do clean catch. aware
--- NOTE | 2022-04-08 19:42 | PC.NURSE ---
pt refusing ct scan, aware. this RN at pt bedside to talk about possible admission, pt states he would still like to be admitted to the hospital however he still continues to refuse everything,.
--- NOTE | 2022-04-08 20:14 | PM.IMHP ---
History of Present Illness Date of Service: 04/08/22 Chief Complaint: failure to thrive This is a 56-year-old male with past medical history of HIV, hepatitis-C, diabetes, HTN, who was brought into the hospital via EMS after his neighbor was concerned that patient is not taking care himself. Patient is significantly cachectic, appears very dehydrated, answer some questions and ignores some others, answers by moving his head yes and no, according to ED physician patient reported on arrival that he has been abusing heroin and alcohol daily.patient patient on arrival was found to be hypotensive, his labs were found to be significant for hemoglobin 12.4, sodium of 147, chloride of 118, BUN of 129, creatinine of 3.04, high troponin of 35.3, chest x-ray negative. After initial IV resuscitation patient refused further lab work, Vera catheter insertion for urine as he is incontinent of urine, he refuse head CT be, diffuse abdominal CT. I spoke to the patient twice in 2 consider acute of episodes and patient continued to refuse but he is agreeable to admission. Unable to obtain full review of system due to medical condition. Given the significant KATHERINE, dehydration, to will be admitted for further management Review of Systems Review of Systems: Yes Unobtainable due to mental condition and Unobtainable due to mental status PMFSH Medical History Anxiety Depression Diabetes Drug abuse Hepatitis C HIV (human immunodeficiency virus infection) HTN (hypertension) MSSA bacteremia Family History Father Alcoholism Mother Type 2 diabetes mellitus Sister No problems noted. Sister No problems noted. Brother No problems noted. Son No problems noted. Surgical History History of repair of laceration Social History Household Members: None Housing: Apartment Do you presently have visiting nurse or other home services: No Alcohol intake: current Alcohol intake frequency: holidays/special occasions only Patient Tobacco Use Status: Current everyday Tobacco user Cigarette Packs Per Day: 0.5 Cigarettes Per Day: 10.0 Years Smoked: 23 Second Hand Smoke Exposure: No Use of substances other than those prescribed or required for medical reasons: Yes Substance Use Type: Heroin Advance Directives: No Advance Directives Information Provided: No service: No Current occupational status: unemployed Meds Allergies Allergy/AdvReac Type Severity Reaction Status Date / Time Sulfa (Sulfonamide Allergy Mild RASH Verified 11/02/20 10:47 Antibiotics) [Sulfa (Sulfonamides)] Active Medications: Current Medications Dextrose/Sodium Chloride (D51/2ns) 1,000 mls @ 125 mls/hr IVCONT .Q8H TOMY Last Admin: 04/08/22 16:48 Dose: 125 mls/hr Pharmacy Consult (Consult Rx Perform Med Rec) 1 each MISCELLANE ONCE PRN PRN Reason: Consult order Home Medications Medication Instructions Recorded Confirmed Last Taken Type albuterol sulfate 90 mcg/actuation 2 puff PO Q4-6H PRN Wheezing 04/08/22 04/08/22 Unknown History aerosol inhaler (Ventolin HFA) bictegravir 50 mg-emtricitabine 1 tab PO DAILY 04/08/22 04/08/22 Unknown History 200 mg-tenofovir alafenam 25 mg tablet (Biktarvy) fluticasone propionate 44 2 puff PO BID 04/08/22 04/08/22 Unknown History mcg/actuation HFA aerosol inhaler (Flovent HFA) insulin glargine 100 unit/mL 18 unit subcut BEDTIME 04/08/22 04/08/22 Unknown History subcutaneous solution (Lantus U-100 Insulin) metformin 850 mg tablet 1 tab PO BID 04/08/22 04/08/22 Unknown History Physical Exam Vital Signs and Narrative: Vital Signs: Last Vital Signs Temp 98.0 F 04/08/22 20:00 Pulse 83 04/08/22 20:00 Resp 16 04/08/22 20:00 BP 108/65 04/08/22 20:00 Pulse Ox 100 04/08/22 20:00 O2 Del Method 04/08/22 20:00 BMI result Body Mass Index 13.6 Const: Other: patient alert, very drowsy but arousable, significantly cachectic, bony, malnourished Eyes: General: appearance normal, both eyes and all related structures Resp: Effort & Inspection: normal respiratory effort Cardio: Rate: regular rate Rhythm: regular rhythm GI: Palpation (GI): Soft to palpation Auscultation: normal bowel sounds Skin: Other: Significant dehydration General skin exam: no rashes or lesions noted Neuro: Cognition (Neuro): normal cognition Extrem: General: Yes normal to inspection and Yes no pedal edema Results Labs CBC and Chem 7: 04/09/22 04:01 04/09/22 04:01 Labs: Laboratory Results - last 24 hr 04/08/22 04/08/22 04/08/22 14:42 14:42 14:42 MCV 89.7 MCH 29.7 MCHC 33.1 RDW 17.3 H Plt Count TNP MPV 10.9 Immature Gran % (Auto) Cancelled Neut % (Auto) Cancelled Lymph % (Auto) Cancelled [place] % (Auto) Cancelled Eos % (Auto) Cancelled Baso % (Auto) Cancelled Lymph # (Auto) Cancelled [place] # (Auto) Cancelled Eos # (Auto) Cancelled Baso # (Auto) Cancelled Abs Immat Gran (auto) Cancelled Absolute Neuts (auto) Cancelled Absolute Nucleated RBC 0.000 Nucleated RBC % (auto) 0.0 Neutrophils % (Manual) 81 H Band Neutrophils % 2 L Lymphocytes % (Manual) 11 L Monocytes % (Manual) 5 Metamyelocytes % 1 Abs Neuts (Manual) 5.1 Lymphocytes # (Manual) 0.7 L Monocytes # (Manual) 0.3 Metamyelocytes # 0.1 Hypersegmented Neuts PRESENT Smudge Cells PRESENT Toxic Granulation PRESENT Toxic Vacuolation PRESENT Platelet Estimate DECREASED Large Platelets PRESENT Plt Morphology Comment NOTED RBC Morphology NOTED Polychromasia 1+ (0-2) Macrocytosis 1+ (5-14) Ovalocytes 1+ (5-14) Maryanne Cells 3+ (>5) Anion Gap 16 Estim Creat Clear Calc 14.7 Estimated GFR 21 Random Glucose 202 H Calcium 9.5 D Total Bilirubin 1.0 AST 22 ALT 11 Alkaline Phosphatase 62 D Troponin I High Sens 35.3 H Total Protein 9.7 H D Albumin 3.3 L D Lipase 215 H TSH 0.78 Ethyl Alcohol COVID-19 (THEA) COVID-19 Clin Com Influenza Type A (SHREYAS) Influenza Type B (SHREYAS) Influenza A & B Note 04/08/22 04/08/22 04/08/22 14:42 14:42 14:42 MCV MCH MCHC RDW Plt Count MPV Immature Gran % (Auto) Neut % (Auto) Lymph % (Auto) [place]kin % (Auto) Eos % (Auto) Baso % (Auto) Lymph # (Auto) [place] # (Auto) Eos # (Auto) Baso # (Auto) Abs Immat Gran (auto) Absolute Neuts (auto) Absolute Nucleated RBC Nucleated RBC % (auto) Neutrophils % (Manual) Band Neutrophils % Lymphocytes % (Manual) Monocytes % (Manual) Metamyelocytes % Abs Neuts (Manual) Lymphocytes # (Manual) Monocytes # (Manual) Metamyelocytes # Hypersegmented Neuts Smudge Cells Toxic Granulation Toxic Vacuolation Platelet Estimate Large Platelets Plt Morphology Comment RBC Morphology Polychromasia Macrocytosis Ovalocytes Maryanne Cells Anion Gap Estim Creat Clear Calc Estimated GFR Random Glucose Calcium Total Bilirubin AST ALT Alkaline Phosphatase Troponin I High Sens Total Protein Albumin Lipase TSH Ethyl Alcohol < 10 COVID-19 (THEA) Negative COVID-19 Clin Com See Note Influenza Type A (SHREYAS) Negative Influenza Type B (SHREYAS) Negative Influenza A & B Note See Note Imaging Radiologist's Impressions: Impressions Chest X-Ray 04/08/22 14:35 IMPRESSION: Unremarkable chest exam. No change from 03/31/2022 Assessment and Plan (1) Acute kidney injury: Status: Acute (2) Acute dehydration: Status: Acute (3) Volume depletion: Status: Acute (4) Adult failure to thrive: Status: Acute Plan 56-year-old male with past medical history of HIV come presents to the hospital after neighbor was concerned that patient was not taking care of himself, patient was found to be significantly dehydrated # KATHERINE - likely secondary to dehydration - patient incontinent of urine and is refusing a Vera catheter - no evidence of acute infection, afebrile, no leukocytosis - will treat with IV fluids - follow BMP # acute dehydration - likely secondary to poor oral intake - patient oral mucosa significantly dry and has significant evidence of volume depletion - IV fluids # adult failure to thrive - likely in the setting of HIV, history of hep C infection as well as IV drug use - care team consulted - will need case management # HIV - Likely not complaint with treatment - will obtain CD4 count - no evidence of acute infection - refused head CT #DM - LDSSI - diabetic diet DVT ppx: heparin subq Quality Stroke Does the patient have a stroke diagnosis?: No VTE Prior VTE?: No VTE Risk Level:: Medical - moderate - high VTE Device Contraindication: Treatment Not Indicated VTE Drug Contraindication: N/A - Med Ordered
--- NOTE | 2022-04-08 20:15 | PC.NURSE ---
at bedside to talk to pt about admission, per MD pt agreeable to get labs drawn. this RN attempt to draw pt labs and he refused, MD aware
[2022-04-08] MEDS: Dextrose 5 % 1,000 ML 100 ML IVCONT (21:00)
--- NOTE | 2022-04-08 21:35 | PC.NURSE ---
pt continues to refuse straight cath for urine sample.
--- NOTE | 2022-04-08 22:05 | PC.NURSE ---
This RN offered pt food & drink, pt refusing at this time.
--- NOTE | 2022-04-08 23:32 | PC.NURSE ---
pt incontinent of urine, pt states he knows when he has to pee, this RN asked pt why he didnt use his call pedersen or urinal, pt does not respond. pt provided perineal care & linen change, pt provided with urinal and call pedersen in reach.
--- NOTE | 2022-04-08 23:39 | PC.NURSE ---
PATIENT WAS INC OF URINE CARE GIVEN ,PATIENT RTEPOSITION .
[2022-04-09] VITALS (8 sets, daily range): BP systolic 92–120; BP diastolic 62–77; PULSE 86–105; RESP 14–22; TEMP 36.3–37.6; O2SAT 98–100
--- NOTE | 2022-04-09 01:52 | PC.NURSE ---
pt found to have ripped out IV and director of cardiac cath lab leads off, pt states he wants to leave AMA. aware.
--- NOTE | 2022-04-09 02:36 | PC.NURSE ---
admitting MD at bedside, per MD pt agreeable to stay until the morning. this RN 2x attempt at new IV with no success, RN aj at bedside for attempt.
--- NOTE | 2022-04-09 03:08 | PC.NURSE ---
Pt found incontinent of urine, pt provided perineal care & linen change
[2022-04-09 04:35] LABS: Hematocrit 35.2 % (42.0-52.0); Hemoglobin 11.6 g/dl (14.0-18.0); Red Blood Count 3.87 X10*6/uL (4.60-5.80); Red Cell Distribution Width 17.4 % (11.0-16.0); White Blood Count 6.1 X10*3/uL (4.8-10.8)
[2022-04-09 05:01] LABS: Band Neutrophils Percent 5 % (3-5); Monocytes Absolute Manual 0.3 X10*3/uL (0.1-1.2); Monocytes Percent Manual 5 % (2-11)
[2022-04-09 05:02] LABS: Lymphocytes Absolute Manual 0.6 X10*3/uL (1.2-4.9); Lymphocytes Percent Manual 10 % (20-40); Neutrophils Absolute Manual 5.2 X10*3/uL (2.0-8.3); Neutrophils Percent Manual 80 % (45-73)
[2022-04-09 05:03] LABS: Macrocytosis 1+ (5-14) /OIF; RBC Morphology NOTED
[2022-04-09 05:04] LABS: Ovalocytes 1+ (5-14) /OIF
[2022-04-09 05:05] LABS: Anion Gap 15 (12-20); Blood Urea Nitrogen 111 mg/dL (9-16); Calcium 9.2 mg/dL (8.4-10.2); Carbon Dioxide 17 mmol/L (22-29); Chloride 120 mmol/L (96-108); Creatinine Clr Calc Pharmacy 19.1; Estimated Glomerular Filt Rate 29; Glucose Random 201 mg/dL (60-115); Polychromasia 1+ (0-2) /OIF; Potassium 4.8 mmol/L (3.3-5.1); Sodium 147 mmol/L (135-145)
[2022-04-09 05:09] LABS: Burr Cells 2+ (3-5) /OIF
[2022-04-09 05:10] LABS: Large Platelet PRESENT; Platelet Estimate DECREASED (NORMAL); Platelet Morphology Comment NOTED; Smudge Cells PRESENT; Toxic Granulation PRESENT; Toxic Vacuolation PRESENT
--- NOTE | 2022-04-09 06:10 | PC.NURSE ---
pt ripped off cardiac leads, pt found to be incontinent of urine, pt provided perineal care & linen change. pt VSS.
--- NOTE | 2022-04-09 07:09 | PC.NURSE ---
report taken from lalo rn- pt sleeping in bed- aware of plan of care for admission. nad will continue to monitor.
[2022-04-09 08:03] LABS: Glucose, Whole Blood 224 mg/dL (60-115)
[2022-04-09] MEDS: Heparin Sodium,Porcine 5,000 UNIT/ML VIAL 5000 UNIT SUBCUT ×2 (08:05→20:43)
[2022-04-09] MEDS: Insulin Lispro 100 UNIT/ML 3 ML VIAL SUBCUT ×2 (08:06→17:06)
--- NOTE | 2022-04-09 10:50 | HO.PM.IMPN ---
Subjective Subjective Date of Service: 04/09/22 Interval History: Seen in f/u for failure to thrive, KATHERINE, dehydration Interval history: showing sings of improvment, renal failure is better but sodium remains high Physical Exam Vital Signs: Vital Signs: Last Vital Signs Temp 97.4 F 04/09/22 08:11 Pulse 86 04/09/22 08:11 Resp 19 04/09/22 08:11 BP 109/72 04/09/22 07:07 Pulse Ox 100 04/09/22 07:07 O2 Del Method 04/09/22 07:07 BMI result Body Mass Index 13.6 Const: Other: General: AO X 2, no acute distress, he is very imaciated and gaunt Resp: CTA bilateral CVS: S1,S2,RRR GI: +BS, NT, no distention Skin: No rash Neuro: motor grossly intact Psych: flat affect Objective Data Active Medications Acetaminophen (Acetaminophen 325 Mg Tablet) 650 mg PO Q6H PRN PRN Reason: Pain, Mild (Pain Scale 1-3) Dextrose (Dextrose 50 % 25 Gm/50 Ml Syringe) 25 gm IVPUSH Q15M PRN; Protocol PRN Reason: per Hypoglycemia Standing Ord. Glucose (Glucose Gel 15 Gm Gel..Gram.) 15 gm PO Q15M PRN; Protocol PRN Reason: per Hypoglycemia Standing Ord. Heparin Sodium (Porcine) (Heparin Sodium,Porcine 5,000 Unit/Ml Vial) 5,000 unit SUBCUT Q12H [facility] Last Admin: 04/09/22 08:05 Dose: 5,000 unit Documented By: MARIA DE JESUS Dextrose (D5w) 1,000 mls @ 100 mls/hr IVCONT .Q10H [facility] Last Admin: 04/09/22 05:28 Dose: Not Given Documented By: CHUNG Non-Admin Reason: IV Running Insulin Human Lispro (Insulin Lispro 100 Unit/Ml 3 Ml Vial) 0 unit SUBCUT QIDACHS [facility]; Protocol Last Admin: 04/09/22 08:06 Dose: 4 unit Documented By: MARIA DE JESUS Ondansetron HCl (Ondansetron Hcl 4 Mg/2 Ml Vial) 4 mg IVPUSH Q8H PRN PRN Reason: Nausea and Vomiting Pharmacy Consult (Consult Rx Perform Med Rec) 1 each MISCELLANE ONCE PRN PRN Reason: Consult order Sodium Chloride (0.9 % Sodium Chloride Flush 3 Ml Syringe) 3 ml IVFLUSH QSHIFT [facility] Last Admin: 04/09/22 07:32 Dose: Not Given Documented By: MARIA DE JESUS Non-Admin Reason: IV Running Labs CBC & Chem 7: 04/09/22 04:01 04/09/22 04:01 Labs: Laboratory Results - last 24 hr 04/08/22 04/08/22 04/08/22 14:42 14:42 14:42 MCV 89.7 MCH 29.7 MCHC 33.1 RDW 17.3 H Plt Count TNP MPV 10.9 Immature Gran % (Auto) Cancelled Neut % (Auto) Cancelled Lymph % (Auto) Cancelled [place] % (Auto) Cancelled Eos % (Auto) Cancelled Baso % (Auto) Cancelled Lymph # (Auto) Cancelled [place] # (Auto) Cancelled Eos # (Auto) Cancelled Baso # (Auto) Cancelled Abs Immat Gran (auto) Cancelled Absolute Neuts (auto) Cancelled Absolute Nucleated RBC 0.000 Nucleated RBC % (auto) 0.0 Neutrophils % (Manual) 81 H Band Neutrophils % 2 L Lymphocytes % (Manual) 11 L Monocytes % (Manual) 5 Metamyelocytes % 1 Abs Neuts (Manual) 5.1 Lymphocytes # (Manual) 0.7 L Monocytes # (Manual) 0.3 Metamyelocytes # 0.1 Hypersegmented Neuts PRESENT Smudge Cells PRESENT Toxic Granulation PRESENT Toxic Vacuolation PRESENT Platelet Estimate DECREASED Large Platelets PRESENT Plt Morphology Comment NOTED RBC Morphology NOTED Polychromasia 1+ (0-2) Macrocytosis 1+ (5-14) Ovalocytes 1+ (5-14) [place] Cells 3+ (>5) Anion Gap 16 Estim Creat Clear Calc 14.7 Estimated GFR 21 POC Glucose Random Glucose 202 H Calcium 9.5 D Total Bilirubin 1.0 AST 22 ALT 11 Alkaline Phosphatase 62 D Troponin I High Sens 35.3 H Total Protein 9.7 H D Albumin 3.3 L D Lipase 215 H TSH 0.78 Ethyl Alcohol COVID-19 (THEA) COVID-19 Clin Com Influenza Type A (SHREYAS) Influenza Type B (SHREYAS) Influenza A & B Note 04/08/22 04/08/22 04/08/22 14:42 14:42 14:42 MCV MCH MCHC RDW Plt Count MPV Immature Gran % (Auto) Neut % (Auto) Lymph % (Auto) [place] % (Auto) Eos % (Auto) Baso % (Auto) Lymph # (Auto) [place] # (Auto) Eos # (Auto) Baso # (Auto) Abs Immat Gran (auto) Absolute Neuts (auto) Absolute Nucleated RBC Nucleated RBC % (auto) Neutrophils % (Manual) Band Neutrophils % Lymphocytes % (Manual) Monocytes % (Manual) Metamyelocytes % Abs Neuts (Manual) Lymphocytes # (Manual) Monocytes # (Manual) Metamyelocytes # Hypersegmented Neuts Smudge Cells Toxic Granulation Toxic Vacuolation Platelet Estimate Large Platelets Plt Morphology Comment RBC Morphology Polychromasia Macrocytosis Ovalocytes [place] Cells Anion Gap Estim Creat Clear Calc Estimated GFR POC Glucose Random Glucose Calcium Total Bilirubin AST ALT Alkaline Phosphatase Troponin I High Sens Total Protein Albumin Lipase TSH Ethyl Alcohol < 10 COVID-19 (THEA) Negative COVID-19 Clin Com See Note Influenza Type A (SHREYAS) Negative Influenza Type B (SHREYAS) Negative Influenza A & B Note See Note 04/08/22 04/09/22 04/09/22 20:42 04:01 04:01 MCV 91.0 MCH 30.0 MCHC 33.0 RDW 17.4 H Plt Count TNP MPV TNP Immature Gran % (Auto) Cancelled Neut % (Auto) Cancelled Lymph % (Auto) Cancelled [place] % (Auto) Cancelled Eos % (Auto) Cancelled Baso % (Auto) Cancelled Lymph # (Auto) Cancelled [place] # (Auto) Cancelled Eos # (Auto) Cancelled Baso # (Auto) Cancelled Abs Immat Gran (auto) Cancelled Absolute Neuts (auto) Cancelled Absolute Nucleated RBC 0.000 Nucleated RBC % (auto) 0.0 Neutrophils % (Manual) 80 H Band Neutrophils % 5 Lymphocytes % (Manual) 10 L Monocytes % (Manual) 5 Metamyelocytes % Abs Neuts (Manual) 5.2 Lymphocytes # (Manual) 0.6 L Monocytes # (Manual) 0.3 Metamyelocytes # Hypersegmented Neuts Smudge Cells PRESENT Toxic Granulation PRESENT Toxic Vacuolation PRESENT Platelet Estimate DECREASED Large Platelets PRESENT Plt Morphology Comment NOTED RBC Morphology NOTED Polychromasia 1+ (0-2) Macrocytosis 1+ (5-14) Ovalocytes 1+ (5-14) [place] Cells 2+ (3-5) Anion Gap 15 Estim Creat Clear Calc 19.1 Estimated GFR 29 POC Glucose Random Glucose 201 H Calcium 9.2 Total Bilirubin AST ALT Alkaline Phosphatase Troponin I High Sens 31.0 Total Protein Albumin Lipase TSH Ethyl Alcohol COVID-19 (THEA) COVID-19 Clin Com Influenza Type A (SHREYAS) Influenza Type B (SHREYAS) Influenza A & B Note 04/09/22 08:00 MCV MCH MCHC RDW Plt Count MPV Immature Gran % (Auto) Neut % (Auto) Lymph % (Auto) [place] % (Auto) Eos % (Auto) Baso % (Auto) Lymph # (Auto) [place] # (Auto) Eos # (Auto) Baso # (Auto) Abs Immat Gran (auto) Absolute Neuts (auto) Absolute Nucleated RBC Nucleated RBC % (auto) Neutrophils % (Manual) Band Neutrophils % Lymphocytes % (Manual) Monocytes % (Manual) Metamyelocytes % Abs Neuts (Manual) Lymphocytes # (Manual) Monocytes # (Manual) Metamyelocytes # Hypersegmented Neuts Smudge Cells Toxic Granulation Toxic Vacuolation Platelet Estimate Large Platelets Plt Morphology Comment RBC Morphology Polychromasia Macrocytosis Ovalocytes [place] Cells Anion Gap Estim Creat Clear Calc Estimated GFR POC Glucose 224 H Random Glucose Calcium Total Bilirubin AST ALT Alkaline Phosphatase Troponin I High Sens Total Protein Albumin Lipase TSH Ethyl Alcohol COVID-19 (THEA) COVID-19 Clin Com Influenza Type A (SHREYAS) Influenza Type B (SHREYAS) Influenza A & B Note Assessment and Plan (1) Adult failure to thrive: Status: Acute (2) Acute kidney injury: Status: Acute (3) Acute dehydration: Status: Acute Plan ?56-year-old male with past medical history of HIV come presents to the hospital after neighbor was concerned that patient was not taking care of himself, patient was found to be significantly dehydrated #? KATHERINE--likely d/t prerenal state -? likely secondary to dehydration -? patient incontinent of urine and is refusing a Vera catheter -? no evidence of acute infection, afebrile, no leukocytosis -continue IvF and trend BMP, renal consult #? acute dehydration--IV water replacement #? Adult failure to thrive #Severe protein caloary manutrition -? likely in the setting of HIV, history of hep C infection as well? as IV drug use -? care team consulted -? will need case management -nutritional consult # HIV/AIDS complex - Likely not complaint with treatment - pending CD4 count-- - no evidence of acute infection - refused head CT -consider ID consult #DM -SSI - diabetic diet DVT ppx: heparin subq Need for inpatient: management with KATHERINE, hypernatremia with IVF, Quality Stroke Does the patient have a stroke diagnosis?: No VTE Prior VTE?: No VTE Risk Level:: Medical - moderate - high VTE Device Contraindication: Treatment Not Indicated VTE Drug Contraindication: N/A - Med Ordered
--- NOTE | 2022-04-09 10:51 | MHC.CM.PN ---
CM attempted to meet with pt: pt extremely weak and skeletal in appearance: mouth w/crusted dark material on lips and teeth. Pt not able to answer all CM assessment questions: stares blankly even when attempting communication in Filipino and Egyptian. Pt shrugged shoulders when asked about PCP or services at home. Pt unable to answer any more questions. Attempted to contact pt's next of contact/sister: number no longer in service. Review of past visits show same contact lens assistant/number and no HCP. Attempted to contact pt's insurance, [facility] to inquire on services/contacts/PCP - no answer - ? d/t federal holiday? Unsure of pt disposition: active heroin use, unknown Covid vax status, no HCP. Pt may not be able to care for self based on physical condition and disease hx. He would be a very difficult placement d/t above and would likely require a guardian if he cannot make decisions on his own accord. Pt will be admitted for correction of lab abnormalities. CM to follow for finalization of d/c needs.
--- NOTE | 2022-04-09 12:10 | PC.NURSE ---
hospitalist aware of pt pulling out iv, no iv line pt refusing- will try again later
[2022-04-09 12:49] LABS: Glucose, Whole Blood 113 mg/dL (60-115)
--- NOTE | 2022-04-09 13:43 | PC.NURSE ---
notified room [id number] assigned to pt- [facility] sent for [facility] to call when ready for report
--- NOTE | 2022-04-09 14:35 | PC.NURSE ---
report given to desiree boudreaux- reports room is still not clean.
--- NOTE | 2022-04-09 15:34 | HO.ADDICTCON ---
History of Present Illness Date of Service: 04/09/2022 Chief Complaint: WT LOSS,DIFF CARING FO SELF AT HOME Reason for Consult: CARE team consult--IVDU Sources of Information: patient interviewed and chart reviewed HPI Narrative: Patient is a 56 year old Nepali speaking male currently medically admitted with failure to thrive. Patient seen in ED while awaiting transfer to room. Patient awake, answering questions, though speaking very softly, almost inaudible. Emaciated appearance. Patient reporting he feels sick , when asked if it was related to opioid withdrawal, he replied yes. When asked if he wanted medication for withdrawal he replied no. When asked how much he is using, he stated whatever I can get . Interview ended as patient quite weak. Review of Systems Review of Systems Yes Unobtainable due to mental status Diagnostics Vital Signs (24Hr): Vital Signs - 24 hr 04/08/22 15:46 04/08/22 18:00 04/08/22 20:00 Temperature 97.7 F 97.8 F 98.0 F Pulse Rate 101 H 85 83 Respiratory Rate 16 16 16 Blood Pressure 118/73 99/63 108/65 Pulse Oximetry 98 98 100 Oxygen Delivery Method Room Air Room Air Room Air 04/08/22 21:46 04/08/22 23:51 04/09/22 03:07 Temperature 97.1 F 98.3 F 97.8 F Pulse Rate 83 83 92 Respiratory Rate 16 16 16 Blood Pressure 120/76 106/63 100/62 Pulse Oximetry 100 98 98 Oxygen Delivery Method Room Air Room Air Room Air 04/09/22 06:07 04/09/22 06:23 04/09/22 07:07 Temperature 97.8 F 97.6 F Pulse Rate 90 86 86 Respiratory Rate 16 15 22 H Blood Pressure 113/77 111/65 109/72 Pulse Oximetry 100 100 100 Oxygen Delivery Method Room Air Room Air Room Air 04/09/22 08:11 Temperature 97.4 F Pulse Rate 86 Respiratory Rate 19 Blood Pressure Pulse Oximetry Oxygen Delivery Method BMI result Body Mass Index 13.6 Labs Results: 04/09/22 04:01 04/09/22 04:01 Labs: Laboratory Results - last 48 hr 04/08/22 04/08/22 04/08/22 14:42 14:42 14:42 WBC 6.2 RBC 4.18 L Hgb 12.4 L Hct 37.5 L MCV 89.7 MCH 29.7 MCHC 33.1 RDW 17.3 H Plt Count TNP MPV 10.9 Immature Gran % (Auto) Cancelled Neut % (Auto) Cancelled Lymph % (Auto) Cancelled [place] % (Auto) Cancelled Eos % (Auto) Cancelled Baso % (Auto) Cancelled Lymph # (Auto) Cancelled [place] # (Auto) Cancelled Eos # (Auto) Cancelled Baso # (Auto) Cancelled Abs Immat Gran (auto) Cancelled Absolute Neuts (auto) Cancelled Absolute Nucleated RBC 0.000 Nucleated RBC % (auto) 0.0 Neutrophils % (Manual) 81 H Band Neutrophils % 2 L Lymphocytes % (Manual) 11 L Monocytes % (Manual) 5 Metamyelocytes % 1 Abs Neuts (Manual) 5.1 Lymphocytes # (Manual) 0.7 L Monocytes # (Manual) 0.3 Metamyelocytes # 0.1 Hypersegmented Neuts PRESENT Smudge Cells PRESENT Toxic Granulation PRESENT Toxic Vacuolation PRESENT Platelet Estimate DECREASED Large Platelets PRESENT Plt Morphology Comment NOTED RBC Morphology NOTED Polychromasia 1+ (0-2) Macrocytosis 1+ (5-14) Ovalocytes 1+ (5-14) [place] Cells 3+ (>5) Sodium 147 H Potassium 4.6 Chloride 118 H D Carbon Dioxide 18 L Anion Gap 16 BUN 129 H Creatinine 3.04 H Estim Creat Clear Calc 14.7 Estimated GFR 21 POC Glucose Random Glucose 202 H Calcium 9.5 D Total Bilirubin 1.0 AST 22 ALT 11 Alkaline Phosphatase 62 D Troponin I High Sens 35.3 H Total Protein 9.7 H D Albumin 3.3 L D Lipase 215 H TSH 0.78 Ethyl Alcohol COVID-19 (THEA) COVID-19 Clin Com Influenza Type A (SHREYAS) Influenza Type B (SHREYAS) Influenza A & B Note 04/08/22 04/08/22 04/08/22 14:42 14:42 14:42 WBC RBC Hgb Hct MCV MCH MCHC RDW Plt Count MPV Immature Gran % (Auto) Neut % (Auto) Lymph % (Auto) [place] % (Auto) Eos % (Auto) Baso % (Auto) Lymph # (Auto) [place] # (Auto) Eos # (Auto) Baso # (Auto) Abs Immat Gran (auto) Absolute Neuts (auto) Absolute Nucleated RBC Nucleated RBC % (auto) Neutrophils % (Manual) Band Neutrophils % Lymphocytes % (Manual) Monocytes % (Manual) Metamyelocytes % Abs Neuts (Manual) Lymphocytes # (Manual) Monocytes # (Manual) Metamyelocytes # Hypersegmented Neuts Smudge Cells Toxic Granulation Toxic Vacuolation Platelet Estimate Large Platelets Plt Morphology Comment RBC Morphology Polychromasia Macrocytosis Ovalocytes [place] Cells Sodium Potassium Chloride Carbon Dioxide Anion Gap BUN Creatinine Estim Creat Clear Calc Estimated GFR POC Glucose Random Glucose Calcium Total Bilirubin AST ALT Alkaline Phosphatase Troponin I High Sens Total Protein Albumin Lipase TSH Ethyl Alcohol < 10 COVID-19 (THEA) Negative COVID-19 Clin Com See Note Influenza Type A (SHREYAS) Negative Influenza Type B (SHREYAS) Negative Influenza A & B Note See Note 04/08/22 04/09/22 04/09/22 20:42 04:01 04:01 WBC 6.1 RBC 3.87 L Hgb 11.6 L Hct 35.2 L MCV 91.0 MCH 30.0 MCHC 33.0 RDW 17.4 H Plt Count TNP MPV TNP Immature Gran % (Auto) Cancelled Neut % (Auto) Cancelled Lymph % (Auto) Cancelled [place] % (Auto) Cancelled Eos % (Auto) Cancelled Baso % (Auto) Cancelled Lymph # (Auto) Cancelled [place] # (Auto) Cancelled Eos # (Auto) Cancelled Baso # (Auto) Cancelled Abs Immat Gran (auto) Cancelled Absolute Neuts (auto) Cancelled Absolute Nucleated RBC 0.000 Nucleated RBC % (auto) 0.0 Neutrophils % (Manual) 80 H Band Neutrophils % 5 Lymphocytes % (Manual) 10 L Monocytes % (Manual) 5 Metamyelocytes % Abs Neuts (Manual) 5.2 Lymphocytes # (Manual) 0.6 L Monocytes # (Manual) 0.3 Metamyelocytes # Hypersegmented Neuts Smudge Cells PRESENT Toxic Granulation PRESENT Toxic Vacuolation PRESENT Platelet Estimate DECREASED Large Platelets PRESENT Plt Morphology Comment NOTED RBC Morphology NOTED Polychromasia 1+ (0-2) Macrocytosis 1+ (5-14) Ovalocytes 1+ (5-14) [place] Cells 2+ (3-5) Sodium 147 H Potassium 4.8 Chloride 120 H Carbon Dioxide 17 L Anion Gap 15 BUN 111 H Creatinine 2.34 H Estim Creat Clear Calc 19.1 Estimated GFR 29 POC Glucose Random Glucose 201 H Calcium 9.2 Total Bilirubin AST ALT Alkaline Phosphatase Troponin I High Sens 31.0 Total Protein Albumin Lipase TSH Ethyl Alcohol COVID-19 (THEA) COVID-19 Clin Com Influenza Type A (SHREYAS) Influenza Type B (SHREYAS) Influenza A & B Note 04/09/22 04/09/22 08:00 12:45 WBC RBC Hgb Hct MCV MCH MCHC RDW Plt Count MPV Immature Gran % (Auto) Neut % (Auto) Lymph % (Auto) [place] % (Auto) Eos % (Auto) Baso % (Auto) Lymph # (Auto) [place] # (Auto) Eos # (Auto) Baso # (Auto) Abs Immat Gran (auto) Absolute Neuts (auto) Absolute Nucleated RBC Nucleated RBC % (auto) Neutrophils % (Manual) Band Neutrophils % Lymphocytes % (Manual) Monocytes % (Manual) Metamyelocytes % Abs Neuts (Manual) Lymphocytes # (Manual) Monocytes # (Manual) Metamyelocytes # Hypersegmented Neuts Smudge Cells Toxic Granulation Toxic Vacuolation Platelet Estimate Large Platelets Plt Morphology Comment RBC Morphology Polychromasia Macrocytosis Ovalocytes [place] Cells Sodium Potassium Chloride Carbon Dioxide Anion Gap BUN Creatinine Estim Creat Clear Calc Estimated GFR POC Glucose 224 H 113 Random Glucose Calcium Total Bilirubin AST ALT Alkaline Phosphatase Troponin I High Sens Total Protein Albumin Lipase TSH Ethyl Alcohol COVID-19 (THEA) COVID-19 Clin Com Influenza Type A (SHREYAS) Influenza Type B (SRHEYAS) Influenza A & B Note Imaging Radiology Impressions: ITS Impressions Chest X-Ray 04/08/22 14:35 IMPRESSION: Unremarkable chest exam. No change from 03/31/2022 Medications Medications Current Medications Acetaminophen (Acetaminophen 325 Mg Tablet) 650 mg PO Q6H PRN PRN Reason: Pain, Mild (Pain Scale 1-3) Dextrose (Dextrose 50 % 25 Gm/50 Ml Syringe) 25 gm IVPUSH Q15M PRN; Protocol PRN Reason: per Hypoglycemia Standing Ord. Glucose (Glucose Gel 15 Gm Gel..Gram.) 15 gm PO Q15M PRN; Protocol PRN Reason: per Hypoglycemia Standing Ord. Heparin Sodium (Porcine) (Heparin Sodium,Porcine 5,000 Unit/Ml Vial) 5,000 unit SUBCUT Q12H [facility] Last Admin: 04/09/22 08:05 Dose: 5,000 unit Dextrose (D5w) 1,000 mls @ 100 mls/hr IVCONT .Q10H [facility]OM[facility] Last Infusion: 04/09/22 12:25 Dose: Infused Insulin Human Lispro (Insulin Lispro 100 Unit/Ml 3 Ml Vial) 0 unit SUBCUT QIDACHS [facility]; Protocol Last Admin: 04/09/22 12:52 Dose: Not Given Ondansetron HCl (Ondansetron Hcl 4 Mg/2 Ml Vial) 4 mg IVPUSH Q8H PRN PRN Reason: Nausea and Vomiting Pharmacy Consult (Consult Rx Perform Med Rec) 1 each MISCELLANE ONCE PRN PRN Reason: Consult order Sodium Chloride (0.9 % Sodium Chloride Flush 3 Ml Syringe) 3 ml IVFLUSH QSHIFT [facility] Last Admin: 04/09/22 07:32 Dose: Not Given Allergies Allergies Allergy/AdvReac Type Severity Reaction Status Date / Time Sulfa (Sulfonamide Allergy Mild RASH Verified 11/02/20 10:47 Antibiotics) [Sulfa (Sulfonamides)] Assessment & Plan Assessment & Plan (1) Opioid use disorder: Status: Acute Code(s): F11.99 - Opioid use, unspecified with unspecified opioid-induced disorder Assessment and Plan: no recommendations at this time. will continue to follow and treat withdrawals if necessary. I spent ___10___ minutes with the patient and/or on the patient floor today, greater than?50% of which was spent counseling/coordinating care. PMFSH Past Medical History Medical History Anxiety Depression Diabetes Drug abuse Hepatitis C HIV (human immunodeficiency virus infection) HTN (hypertension) MSSA bacteremia Family History Family History Father Alcoholism Mother Type 2 diabetes mellitus Sister No problems noted. Sister No problems noted. Brother No problems noted. Son No problems noted. Surgical History Surgical History History of repair of laceration Social History Social History Household Members: None Housing: Apartment Do you presently have visiting nurse or other home services: No Alcohol intake: current Alcohol intake frequency: holidays/special occasions only Patient Tobacco Use Status: Current everyday Tobacco user Cigarette Packs Per Day: 0.5 Cigarettes Per Day: 10.0 Years Smoked: 23 Second Hand Smoke Exposure: No Substance Use Type: Heroin service: No Current occupational status: unemployed
[2022-04-09 16:55] LABS: Glucose, Whole Blood 172 mg/dL (60-115)
[2022-04-09 21:05] LABS: Glucose, Whole Blood 150 mg/dL (60-115)
[2022-04-09] MEDS: Dextrose 5 % 1,000 ML 100 ML IVCONT (21:51)
--- NOTE | 2022-04-10 03:23 | PC.NURSE ---
Pt noted with no IV access, pt is very weak, lethargic and cachectic, refusing most of his care, encouraged to get an IVline for his hydration, pt complied, IVline inserted and IVF resumed.
[2022-04-10 03:35] VITALS: BP 115/59; PULSE 100; RESP 14; TEMP 37; O2SAT 99
[2022-04-10 07:11] VITALS: BP 105/70; PULSE 101; RESP 18; TEMP 36.8; O2SAT 100
[2022-04-10 07:35] LABS: Glucose, Whole Blood 236 mg/dL (60-115)
[2022-04-10] MEDS: Heparin Sodium,Porcine 5,000 UNIT/ML VIAL 5000 UNIT SUBCUT ×2 (07:52→19:31)
[2022-04-10] MEDS: Insulin Lispro 100 UNIT/ML 3 ML VIAL SUBCUT ×2 (07:55→12:08)
[2022-04-10] MEDS: Dextrose 5 % 1,000 ML 100 ML IVCONT ×2 (07:57→18:28)
--- NOTE | 2022-04-10 08:45 | HO.PM.IMPN ---
Subjective Subjective Date of Service: 04/11/22 Interval History: Seen in f/u for failure to thrive, KATHERINE, dehydration Interval history: has no complaint, no sob, no chest pain Review of Systems no fever emaciated Physical Exam Vital Signs: Vital Signs: Last Vital Signs Temp 98.2 F 04/10/22 07:11 Pulse 101 H 04/10/22 07:11 Resp 18 04/10/22 07:11 BP 105/70 04/10/22 07:11 Pulse Ox 100 04/10/22 07:11 O2 Del Method 04/10/22 07:11 BMI result Body Mass Index 13.6 Const: Other: General: calm, no agitation Resp: CTA bilateral CVS: S1,S2,RRR GI: +BS, NT, no distention Skin: No rash Neuro: motor grossly intact Psych: flat affect Objective Data Active Medications Acetaminophen (Acetaminophen 325 Mg Tablet) 650 mg PO Q6H PRN PRN Reason: Pain, Mild (Pain Scale 1-3) Dextrose (Dextrose 50 % 25 Gm/50 Ml Syringe) 25 gm IVPUSH Q15M PRN; Protocol PRN Reason: per Hypoglycemia Standing Ord. Glucose (Glucose Gel 15 Gm Gel..Gram.) 15 gm PO Q15M PRN; Protocol PRN Reason: per Hypoglycemia Standing Ord. Heparin Sodium (Porcine) (Heparin Sodium,Porcine 5,000 Unit/Ml Vial) 5,000 unit SUBCUT Q12H [facility] Last Admin: 04/10/22 07:52 Dose: 5,000 unit Documented By: MARY Dextrose (D5w) 1,000 mls @ 100 mls/hr IVCONT .Q10H [facility] Last Admin: 04/10/22 07:57 Dose: 100 mls/hr Documented By: MARY Insulin Human Lispro (Insulin Lispro 100 Unit/Ml 3 Ml Vial) 0 unit SUBCUT QIDACHS [facility]; Protocol Last Admin: 04/10/22 07:55 Dose: 1 unit Documented By: MARY Ondansetron HCl (Ondansetron Hcl 4 Mg/2 Ml Vial) 4 mg IVPUSH Q8H PRN PRN Reason: Nausea and Vomiting Pharmacy Consult (Consult Rx Perform Med Rec) 1 each MISCELLANE ONCE PRN PRN Reason: Consult order Sodium Chloride (0.9 % Sodium Chloride Flush 3 Ml Syringe) 3 ml IVFLUSH QSHIFT [facility] Last Admin: 04/10/22 07:56 Dose: Not Given Documented By: MARY Non-Admin Reason: IV Running Labs CBC & Chem 7: 04/09/22 04:01 04/11/22 06:08 Labs: Laboratory Results - last 24 hr 04/09/22 04/09/22 04/09/22 12:45 16:51 21:01 POC Glucose 113 172 H 150 H 04/10/22 07:26 POC Glucose 236 H Assessment and Plan (1) Adult failure to thrive: Status: Acute (2) Acute kidney injury: Status: Acute (3) Acute dehydration: Status: Acute (4) AIDS: Status: Acute Plan ? 56-year-old male with past medical history of HIV come presents to the hospital after neighbor was concerned that patient was not taking care of himself, patient was found to be significantly dehydrated #? KATHERINE--likely d/t prerenal state, improving -? likely secondary to dehydration -? patient incontinent of urine and refused a Vera catheter -? no evidence of acute infection, afebrile, no leukocytosis - continue IVF and trend BMP, renal consult #? Acute Dehydration--IV water replacement #? Adult failure to thrive #Severe protein callory malnutrition -? likely in the setting of HIV, history of hep C infection as well? as IV drug use -? care team consulted -? will need case management - nutritional consult # HIV/AIDS complex - Likely not complaint with treatment - pending CD4 count--54 - no evidence of acute infection - refused head CT -consider ID consult -restarted on Bictarvy -Mepron for PCP prophylaxis #DM -SSI - diabetic diet DVT ppx: heparin subq Need for inpatient: management with KATHERINE, hypernatremia with IVF, Quality Stroke Does the patient have a stroke diagnosis?: No VTE Prior VTE?: No VTE Risk Level:: Medical - moderate - high VTE Device Contraindication: Treatment Not Indicated VTE Drug Contraindication: N/A - Med Ordered
--- NOTE | 2022-04-10 09:31 | MHC.CLN ---
RE: CONSULT PT IS SEVERELY MALNOURISHED-SEVERE MALNUTRITION IN THE CONTEXT OF CHRONIC ILLNESS PT WITH 37% SIGNIFICANT WT LOSS X 6 MONTHS, BMI 13.6 WITH CHRONIC POOR PO INTAKE R/T AFTT, HIV AND HEROIN USE RECOMMEND ADDING ENSURE TID TO INCREASE KCALS AND PROMOTE WEIGHT GAIN FULL NUTRITION ASSESSMENT TO FOLLOW
[2022-04-10] MEDS: Bictegrav/Emtricit/Tenofov Ala TABLET 1 TAB PO (09:34)
--- NOTE | 2022-04-10 09:34 | PM.PNNEP ---
Subjective Subjective Date of Service: 04/10/22 Interval history: Events noted Poor PO intake Physical Exam Vital Signs: Vital Signs: Last Vital Signs Temp 98.2 F 04/10/22 07:11 Pulse 101 H 04/10/22 07:11 Resp 18 04/10/22 07:11 BP 105/70 04/10/22 07:11 Pulse Ox 100 04/10/22 07:11 O2 Del Method 04/10/22 07:11 BMI result Body Mass Index 13.6 Const: General: awake Nutritional Appearance: malnourished Neck: Neck: Yes supple Resp: Auscultation: diminished lung sounds Cardio: Palpation: no palpable S3 Heart sounds: no rubs Neuro: Motor exam (neuro): no asterixis Objective Data Labs CBC & Chem 7: 04/09/22 04:01 04/09/22 04:01 Labs: Laboratory Results - last 24 hr 04/09/22 04/09/22 04/09/22 12:45 16:51 21:01 POC Glucose 113 172 H 150 H 04/10/22 07:26 POC Glucose 236 H Procedures Date of Service Date of Service: 04/10/22 Assessment & Plan Assessment and plan (1) Acute kidney injury: Status: Acute Plan KATHERINE /Hypernatremia due to dehydration Keep I > O with current fluids Renal fx improving Encourage PO fluids No indicatoin for dialysis Time Spent With Patient Time: Total time spent is greater than 50% in coordination of care (as documented) at patient's floor/unit and/or counseling patient: Progress Note: Quality Stroke Does the patient have a stroke diagnosis?: No
--- NOTE | 2022-04-10 11:44 | CONS_ITS ---
DATE OF SERVICE: 04/09/2022 REASON FOR CONSULTATION: I was called to see this patient to assist in management of acute renal failure. HISTORY OF PRESENT ILLNESS: To summarize, Mera Hamm is a 56-year-old man with history of HIV, hepatitis C, diabetes, and hypertension. His renal function has been basically normal with a creatinine less than 0.9 mg/dL. He was brought in because he was cachectic and was nonetheless failure to thrive. At the time of admission, his creatinine 2.04 and BUN 129. Vera has been inserted. He started on IV fluids and this consultation has been requested. PAST MEDICAL PROBLEMS: Ongoing medical problems include diabetes, hep C, HIV, hypertension, depression, anxiety, and failure to thrive. FAMILY HISTORY: Noncontributory. SURGICAL HISTORY: Not significant for this admission. SOCIAL HISTORY: History of alcohol intake is present. He also smokes cigarettes. ALLERGIES: HE IS ALLERGIC TO SULFA. HOME MEDICATIONS: Included metformin, insulin, fluticasone, Biktarvy and albuterol. REVIEW OF SYSTEMS: Patient is cachectic. Appetite has been poor. No nausea, vomiting. No diarrhea. No abdominal pain. No fever. He has weight loss. PHYSICAL EXAMINATION: GENERAL: Keenan is elderly man, he is cachectic. He appears ill. NECK: Supple. Mucosa dry. LUNGS: Air entry equal. No rales. Scattered rhonchi. HEART: No gallop or rub. ABDOMEN: Soft, nontender. EXTREMITIES: No edema. NEURO: No focal motor deficits. VITAL SIGNS: Blood pressure today was 100/50. LABS: Hemoglobin 11.6, platelets not counted. Sodium 147, potassium 4.8, CO2 of 17, BUN 111, and creatinine 2.34. IMPRESSION: A 56-year-old man with human immunodeficiency virus, comes in with acute kidney injury and hypernatremia due to dehydration. He also has metabolic acidosis due to dehydration leading to acute kidney injury. RECOMMENDATIONS: IV hydration with half-normal saline. Keep intake more than the output. If serum bicarbonate drops further, I would change to D5W with 3 amps of sodium bicarbonate to correct acidosis. Renal function is already improving. No indication for dialysis. With replacement of the free water, the serum sodium should normalize as well. Rate of correction should be 0.8 millimole per L per hour and not exceed more than 8 to 10 millimoles in a 24-hour period. We will follow him with the team. MD ABBIE Alvarez/MODL / [id number]
[2022-04-10 11:45] VITALS: BP 107/73; PULSE 96; RESP 18; TEMP 36.9; O2SAT 97
[2022-04-10 14:16] LABS: Absolute CD3 Count 867 cells/uL (840-3060); Absolute CD4 Count 61 cells/uL (490-1740); Absolute CD8 Count 804 cells/uL (180-1170); Absolute Lymphocytes 923 cells/uL (850-3900); CD4 CD8 Ratio 0.08 (0.86-5.00); Percent CD3 Cells 94 % (57-85); Percent CD4 Cells 7 % (30-61); Percent CD8 Cells 87 % (12-42)
--- NOTE | 2022-04-10 14:21 | P.CNID_ITS ---
History of Present Illness Data of Consult Service Date: 04/10/22 Requesting physician: Pérez Clemens Primary Care Provider: None Physician HPI Reason for consult: dehydration,AIDS He presents to hospital with weakness. He is reported not eating or drinking. He has not been taking HIV medication (Biktarvy) He has unremarkable CT abdomen except for cholelithiasis and CXR negative. Review of Systems Review of Systems: Yes all other systems are reviewed and are negative PMFSH Past Medical History Medical History Anxiety Depression Diabetes Drug abuse Hepatitis C HIV (human immunodeficiency virus infection) HTN (hypertension) MSSA bacteremia Family History Family History Father Alcoholism Mother Type 2 diabetes mellitus Sister No problems noted. Sister No problems noted. Brother No problems noted. Son No problems noted. Family history: reviewed and not pertinent Surgical History Surgical History History of repair of laceration Social History Social History Household Members: None Housing: Apartment Do you presently have visiting nurse or other home services: No Alcohol intake: current Alcohol intake frequency: holidays/special occasions only Patient Tobacco Use Status: Current everyday Tobacco user Cigarette Packs Per Day: 1 Cigarettes Per Day: 20.0 Years Smoked: 23 Second Hand Smoke Exposure: No Substance Use Type: Heroin service: No Current occupational status: unemployed Meds Allergies Allergy/AdvReac Type Severity Reaction Status Date / Time Sulfa (Sulfonamide Allergy Mild RASH Verified 11/02/20 10:47 Antibiotics) [Sulfa (Sulfonamides)] Active Medications: Current Medications Acetaminophen (Acetaminophen 325 Mg Tablet) 650 mg PO Q6H PRN PRN Reason: Pain, Mild (Pain Scale 1-3) Bictegravir/Emtricitabine/Tenofovir (Bictegrav/Emtricit/Tenofov Ala Tablet) 1 tab PO DAILY [facility] Last Admin: 04/10/22 09:34 Dose: 1 tab Dextrose (Dextrose 50 % 25 Gm/50 Ml Syringe) 25 gm IVPUSH Q15M PRN; Protocol PRN Reason: per Hypoglycemia Standing Ord. Glucose (Glucose Gel 15 Gm Gel..Gram.) 15 gm PO Q15M PRN; Protocol PRN Reason: per Hypoglycemia Standing Ord. Heparin Sodium (Porcine) (Heparin Sodium,Porcine 5,000 Unit/Ml Vial) 5,000 unit SUBCUT Q12H [facility] Last Admin: 04/10/22 07:52 Dose: 5,000 unit Dextrose (D5w) 1,000 mls @ 100 mls/hr IVCONT .Q10H [facility] Last Admin: 04/10/22 07:57 Dose: 100 mls/hr Insulin Human Lispro (Insulin Lispro 100 Unit/Ml 3 Ml Vial) 0 unit SUBCUT QIDACHS [facility]; Protocol Last Admin: 04/10/22 12:08 Dose: 1 unit Ondansetron HCl (Ondansetron Hcl 4 Mg/2 Ml Vial) 4 mg IVPUSH Q8H PRN PRN Reason: Nausea and Vomiting Pharmacy Consult (Consult Rx Perform Med Rec) 1 each MISCELLANE ONCE PRN PRN Reason: Consult order Sodium Chloride (0.9 % Sodium Chloride Flush 3 Ml Syringe) 3 ml IVFLUSH QSHIFT [facility] Last Admin: 04/10/22 07:56 Dose: Not Given Home Medications Medication Instructions Recorded Confirmed Last Taken Type albuterol sulfate 90 mcg/actuation 2 puff PO Q4-6H PRN Wheezing 04/08/22 04/08/22 Unknown History aerosol inhaler (Ventolin HFA) bictegravir 50 mg-emtricitabine 1 tab PO DAILY 04/08/22 04/08/22 Unknown History 200 mg-tenofovir alafenam 25 mg tablet (Biktarvy) fluticasone propionate 44 2 puff PO BID 04/08/22 04/08/22 Unknown History mcg/actuation HFA aerosol inhaler (Flovent HFA) insulin glargine 100 unit/mL 18 unit subcut BEDTIME 04/08/22 04/08/22 Unknown History subcutaneous solution (Lantus U-100 Insulin) metformin 850 mg tablet 1 tab PO BID 04/08/22 04/08/22 Unknown History Physical Exam Vital Signs: Vital Signs: Last Vital Signs Temp 98.4 F 04/10/22 11:45 Pulse 96 04/10/22 11:45 Resp 18 04/10/22 11:45 BP 107/73 04/10/22 11:45 Pulse Ox 97 04/10/22 11:45 O2 Del Method 04/10/22 11:45 BMI result Body Mass Index 13.6 Const: General: cooperative Eyes: Corneas: corneas abnormal (left opacification cornea) Resp: Effort & Inspection: normal respiratory effort Cardio: Rate: regular rate Rhythm: regular rhythm GI: Palpation (GI): Soft to palpation and nontender Skin: General skin exam: no rashes or lesions noted Extrem: General: Yes normal to inspection Results Labs CBC & Chem 7: 04/09/22 04:01 04/09/22 04:01 Assessment and Plan (1) Adult failure to thrive: Status: Acute (2) Acute kidney injury: Status: Acute He has dehydration (3) AIDS: Status: Acute He is emaciated. He has ?corneal opacity left eye. He likely has CD4 count less than 200. Plan Await CD4 count. Concepcion for PJP prevention. Needs to see C to follow up in program on discharge.
[2022-04-10 15:33] VITALS: BP 113/73; PULSE 110; RESP 16; TEMP 36.3; O2SAT 99
[2022-04-10 16:47] LABS: Glucose, Whole Blood 120 mg/dL (60-115)
[2022-04-10 20:00] VITALS: BP 101/67; PULSE 105; RESP 18; TEMP 36.8; O2SAT 94
[2022-04-10 20:09] LABS: Appearance Urine CLEAR; Color Urine YELLOW; Glucose Urine UA NEG (NEG); Leukocyte Esterase Urine 1+ (NEG); Nitrite Urine POS (NEG); PH 5.5 (5.0-8.0); UACC Culture Trigger YES; Urine Blood 2+ (NEG); Urine Ketones NEG (NEG); Urine Protein TRACE MG/DL (NEG-TRACE)
[2022-04-10 20:15] LABS: Bacteria Urine 4+ /LPF; Squamous Epithelial Cell Urine TRACE /LPF
[2022-04-10 20:20] LABS: Amphetamine Screen Urine Not Detected (Not Detect); Barbiturates, Urine Not Detected (Not Detect); Benzodiazepines Screen Urine Not Detected (Not Detect); Cannabinoid Screen Urine Not Detected (Not Detect); Cocaine Screen Urine Not Detected (Not Detect); Fentanyl, urine POSITIVE (Not Detect); Opiate Screen Urine POSITIVE (Not Detect); Phencyclidine Screen Urine Not Detected (Not Detect)
[2022-04-10 20:45] LABS: Glucose, Whole Blood 148 mg/dL (60-115)
[2022-04-10 23:51] VITALS: BP 94/52; PULSE 104; RESP 18; TEMP 36.6; O2SAT 99
[2022-04-11] VITALS (7 sets, daily range): BP systolic 93–126; BP diastolic 61–75; PULSE 86–100; RESP 18; TEMP 35.8–36.6; O2SAT 97–100; BMI 13.6
[2022-04-11 07:15] LABS: Anion Gap 13 (12-20); Blood Urea Nitrogen 87 mg/dL (9-16); Calcium 9.2 mg/dL (8.4-10.2); Carbon Dioxide 15 mmol/L (22-29); Chloride 118 mmol/L (96-108); Creatinine Clr Calc Pharmacy 23.3; Estimated Glomerular Filt Rate 36; Glucose Random 203 mg/dL (60-115); Potassium 4.9 mmol/L (3.3-5.1); Sodium 141 mmol/L (135-145)
[2022-04-11 08:27] LABS: Glucose, Whole Blood 179 mg/dL (60-115)
[2022-04-11] MEDS: Atovaquone 750 MG/5 ML ORAL.SUSP 1500 MG PO (08:42)
[2022-04-11] MEDS: Heparin Sodium,Porcine 5,000 UNIT/ML VIAL 5000 UNIT SUBCUT ×2 (08:43→20:07)
[2022-04-11] MEDS: 0.9 % Sodium Chloride Flush 3 ML SYRINGE IVFLUSH ×3 (08:44→20:08)
[2022-04-11] MEDS: Insulin Lispro 100 UNIT/ML 3 ML VIAL SUBCUT ×2 (08:44→12:14)
--- NOTE | 2022-04-11 11:05 | PM.PNNEP ---
Subjective Subjective Date of Service: 04/11/22 Interval history: Events noted Poor PO intake Looks better Physical Exam Vital Signs: Vital Signs: Last Vital Signs Temp 97.4 F 04/11/22 07:56 Pulse 98 04/11/22 07:56 Resp 18 04/11/22 07:56 BP 106/74 04/11/22 07:56 Pulse Ox 98 04/11/22 07:56 O2 Del Method 04/11/22 07:56 BMI result Body Mass Index 13.6 Const: General: cooperative Eyes: Corneas: corneas abnormal (left opacification cornea) Resp: Effort & Inspection: normal respiratory effort Cardio: Rate: regular rate Rhythm: regular rhythm GI: Palpation (GI): Soft to palpation and nontender Skin: General skin exam: no rashes or lesions noted Extrem: General: Yes normal to inspection Objective Data Labs CBC & Chem 7: 04/09/22 04:01 04/11/22 06:08 Labs: Laboratory Results - last 24 hr 04/09/22 04/10/22 04/10/22 07:41 16:43 20:00 Sodium Potassium Chloride Carbon Dioxide Anion Gap BUN Creatinine Estim Creat Clear Calc Estimated GFR POC Glucose 120 H Random Glucose Calcium Urine Color Urine Appearance Urine pH Ur Specific Sylvester Urine Protein Urine Glucose (UA) Urine Ketones Urine Blood Urine Nitrite Ur Leukocyte Esterase Urine RBC Urine WBC Ur Squamous Epith Cells Urine Bacteria Urine Opiates Screen POSITIVE H Urine Fentanyl Screen POSITIVE H Ur Barbiturates Screen Not Detected Ur Phencyclidine Scrn Not Detected Ur Amphetamines Screen Not Detected U Benzodiazepines Scrn Not Detected Urine Cocaine Screen Not Detected U Marijuana (THC) Screen Not Detected Lymphocyte Subset Cmmnt TNP Total Lymphocytes 923 % CD3 Cells 94 H Absolute CD3 Count 867 % CD4 Cells 7 L Absolute CD4 Count 61 L CD4/CD8 Ratio 0.08 L % CD8 Cells 87 H Absolute CD8 Count 804 04/10/22 04/10/22 04/11/22 20:00 20:35 06:08 Sodium 141 Potassium 4.9 Chloride 118 H Carbon Dioxide 15 L Anion Gap 13 BUN 87 H D Creatinine 1.92 H Estim Creat Clear Calc 23.3 Estimated GFR 36 POC Glucose 148 H Random Glucose 203 H Calcium 9.2 Urine Color YELLOW Urine Appearance CLEAR Urine pH 5.5 Ur Specific Sylvester 1.010 Urine Protein TRACE Urine Glucose (UA) NEG Urine Ketones NEG Urine Blood 2+ H Urine Nitrite POS H Ur Leukocyte Esterase 1+ H Urine RBC 1-4 Urine WBC 5-9 H Ur Squamous Epith Cells TRACE Urine Bacteria 4+ Urine Opiates Screen Urine Fentanyl Screen Ur Barbiturates Screen Ur Phencyclidine Scrn Ur Amphetamines Screen U Benzodiazepines Scrn Urine Cocaine Screen U Marijuana (THC) Screen Lymphocyte Subset Cmmnt Total Lymphocytes % CD3 Cells Absolute CD3 Count % CD4 Cells Absolute CD4 Count CD4/CD8 Ratio % CD8 Cells Absolute CD8 Count 04/11/22 07:56 Sodium Potassium Chloride Carbon Dioxide Anion Gap BUN Creatinine Estim Creat Clear Calc Estimated GFR POC Glucose 179 H Random Glucose Calcium Urine Color Urine Appearance Urine pH Ur Specific Sylvester Urine Protein Urine Glucose (UA) Urine Ketones Urine Blood Urine Nitrite Ur Leukocyte Esterase Urine RBC Urine WBC Ur Squamous Epith Cells Urine Bacteria Urine Opiates Screen Urine Fentanyl Screen Ur Barbiturates Screen Ur Phencyclidine Scrn Ur Amphetamines Screen U Benzodiazepines Scrn Urine Cocaine Screen U Marijuana (THC) Screen Lymphocyte Subset Cmmnt Total Lymphocytes % CD3 Cells Absolute CD3 Count % CD4 Cells Absolute CD4 Count CD4/CD8 Ratio % CD8 Cells Absolute CD8 Count Procedures Date of Service Date of Service: 04/11/22 Assessment & Plan Assessment and plan (1) Acute kidney injury: Status: Acute (2) Volume depletion: Status: Acute Plan KATHERINE /Hypernatremia due to dehydration Keep I > O with current fluids Renal fx improving Encourage PO fluids Na is better Pt is Acidotic d/w medical team - Suggest 1000 ml of D5 W with 150 meq of Hco3 at 70 ml / hr x 1 L Check labs in AM Avoid nephrotoxins Time Spent With Patient Time: Total time spent is greater than 50% in coordination of care (as documented) at patient's floor/unit and/or counseling patient: Progress Note: Quality Stroke Does the patient have a stroke diagnosis?: No
[2022-04-11 11:58] LABS: Glucose, Whole Blood 244 mg/dL (60-115)
--- NOTE | 2022-04-11 13:59 | MHC.CM.PN ---
2 calls placed to [facility] to gather further information re: patient. Awaiting return phone calls.
--- NOTE | 2022-04-11 14:08 | MHC.CM.PN ---
PATIENT'S TRANSITION OF CARE NURSE FOR [facility] CARLTON ([phone]) STATES THAT PATIENT HAS NO EMERGENCY CONTACTS NO HCP FOUND WITH [facility]. CARLTON WILL REACH OUT TO IT INTERN IN EFFORTS TO SECURE MORE INFORMATION. CARLTON DOES STATES THAT MULTIPLE PHONE CALL, MAIL, AND VISIT ATTEMPTS HAVE BEEN MADE TO ONBOARD PATIENT FOR SERVICES BUT HE DOES NOT RESPOND TO ATTEMPTS. PATIENT PCP IS LISTED WITH [facility] ABELARDO HERZOG
[2022-04-11 15:48] LABS: Glucose, Whole Blood 131 mg/dL (60-115)
[2022-04-11 20:03] LABS: Glucose, Whole Blood 150 mg/dL (60-115)
[2022-04-12 03:37] VITALS: BP 93/59; PULSE 98; RESP 18; TEMP 36.1; O2SAT 98
[2022-04-12 07:40] VITALS: BP 97/72; PULSE 88; RESP 18; TEMP 36; O2SAT 98
[2022-04-12 07:53] LABS: Glucose, Whole Blood 185 mg/dL (60-115)
[2022-04-12] MEDS: Bictegrav/Emtricit/Tenofov Ala TABLET 1 TAB PO (08:37)
[2022-04-12] MEDS: Atovaquone 750 MG/5 ML ORAL.SUSP 1500 MG PO (08:37)
[2022-04-12] MEDS: Heparin Sodium,Porcine 5,000 UNIT/ML VIAL 5000 UNIT SUBCUT ×2 (08:38→21:00)
[2022-04-12] MEDS: 0.9 % Sodium Chloride Flush 3 ML SYRINGE IVFLUSH ×3 (08:38→21:00)
[2022-04-12] MEDS: Insulin Lispro 100 UNIT/ML 3 ML VIAL SUBCUT ×4 (08:38→20:59)
--- NOTE | 2022-04-12 10:58 | PM.PNNEP ---
Subjective Subjective Date of Service: 04/12/22 Interval history: Events noted Poor PO intake Looks the same Physical Exam Vital Signs: Vital Signs: Last Vital Signs Temp 96.8 F 04/12/22 07:40 Pulse 88 04/12/22 07:40 Resp 18 04/12/22 07:40 BP 97/72 04/12/22 07:40 Pulse Ox 98 04/12/22 07:40 O2 Del Method 04/12/22 07:40 BMI result Body Mass Index 13.6 Const: General: cooperative Eyes: Corneas: corneas abnormal (left opacification cornea) Resp: Effort & Inspection: normal respiratory effort Cardio: Rate: regular rate Rhythm: regular rhythm GI: Palpation (GI): Soft to palpation and nontender Skin: General skin exam: no rashes or lesions noted Extrem: General: Yes normal to inspection Objective Data Labs CBC & Chem 7: 04/09/22 04:01 04/11/22 06:08 Labs: Laboratory Results - last 24 hr 04/11/22 04/11/22 04/11/22 11:26 15:40 19:57 POC Glucose 244 H 131 H 150 H 04/12/22 07:42 POC Glucose 185 H Microbiology Microbiology Results: Microbiology 04/10/22 20:00 Urine clean catch - Urine hardin top Urine Culture - Preliminary Culture in progress. Procedures Date of Service Date of Service: 04/12/22 Assessment & Plan Assessment and plan (1) Acute kidney injury: Status: Acute (2) Volume depletion: Status: Acute Plan KATHERINE /Hypernatremia due to dehydration Keep I > O with current fluids Renal fx improving Encourage PO fluids Na is better Pt is Acidotic - No New labs - Check labs in AM Started Pt on PO Bicarb 650 TID- Can d/c once bicarb > 22 Check labs in AM Avoid nephrotoxins Time Spent With Patient Time: Total time spent is greater than 50% in coordination of care (as documented) at patient's floor/unit and/or counseling patient: Progress Note: Quality Stroke Does the patient have a stroke diagnosis?: No
[2022-04-12 11:10] VITALS: BP 99/69; PULSE 80; RESP 18; TEMP 36; O2SAT 100
--- NOTE | 2022-04-12 11:14 | HO.PM.IMPN ---
Subjective Subjective Date of Service: 04/12/22 Interval History: Seen in f/u for failure to thrive, KATHERINE, dehydration Interval history: feeling better, more interactive and inquiring about going home Review of Systems no fever emaciated Physical Exam Vital Signs: Vital Signs: Last Vital Signs Temp 96.8 F 04/12/22 11:10 Pulse 80 04/12/22 11:10 Resp 18 04/12/22 11:10 BP 99/69 04/12/22 11:10 Pulse Ox 100 04/12/22 11:10 O2 Del Method 04/12/22 11:10 BMI result Body Mass Index 13.6 Const: Other: General: calm, no agitation Resp: CTA bilateral CVS: S1,S2,RRR GI: +BS, NT, no distention Skin: No rash Neuro: motor grossly intact Psych: flat affect Objective Data Active Medications Acetaminophen (Acetaminophen 325 Mg Tablet) 650 mg PO Q6H PRN PRN Reason: Pain, Mild (Pain Scale 1-3) Atovaquone (Atovaquone 750 Mg/5 Ml Oral.Susp) 1,500 mg PO DAILY [facility] Last Admin: 04/12/22 08:37 Dose: 1,500 mg Documented By: MARY Bictegravir/Emtricitabine/Tenofovir (Bictegrav/Emtricit/Tenofov Ala Tablet) 1 tab PO DAILY [facility] Last Admin: 04/12/22 08:37 Dose: 1 tab Documented By: MARY Dextrose (Dextrose 50 % 25 Gm/50 Ml Syringe) 25 gm IVPUSH Q15M PRN; Protocol PRN Reason: per Hypoglycemia Standing Ord. Glucose (Glucose Gel 15 Gm Gel..Gram.) 15 gm PO Q15M PRN; Protocol PRN Reason: per Hypoglycemia Standing Ord. Heparin Sodium (Porcine) (Heparin Sodium,Porcine 5,000 Unit/Ml Vial) 5,000 unit SUBCUT Q12H [facility] Last Admin: 04/12/22 08:38 Dose: 5,000 unit Documented By: MARY Insulin Human Lispro (Insulin Lispro 100 Unit/Ml 3 Ml Vial) 0 unit SUBCUT QIDACHS [facility]; Protocol Last Admin: 04/12/22 08:38 Dose: 2 unit Documented By: MARY Ondansetron HCl (Ondansetron Hcl 4 Mg/2 Ml Vial) 4 mg IVPUSH Q8H PRN PRN Reason: Nausea and Vomiting Pharmacy Consult (Consult Rx Perform Med Rec) 1 each MISCELLANE ONCE PRN PRN Reason: Consult order Sodium Bicarbonate (Sodium Bicarbonate 650 Mg Tablet) 650 mg PO TID TOMY Sodium Chloride (0.9 % Sodium Chloride Flush 3 Ml Syringe) 3 ml IVFLUSH QSHIFT [facility] Last Admin: 04/12/22 08:38 Dose: 3 ml Documented By: MARY Labs CBC & Chem 7: 04/09/22 04:01 04/11/22 06:08 Labs: Laboratory Results - last 24 hr 04/11/22 04/11/22 04/11/22 11:26 15:40 19:57 POC Glucose 244 H 131 H 150 H 04/12/22 07:42 POC Glucose 185 H Microbiology Microbiology Results: Microbiology 04/10/22 20:00 Urine Culture - Preliminary Urine clean catch - Urine hardin top Culture in progress. Assessment and Plan (1) Adult failure to thrive: Status: Acute (2) Acute kidney injury: Status: Acute (3) Acute dehydration: Status: Acute (4) AIDS: Status: Acute Plan A 56-year-old male with a past medical history of HIV come presents to the hospital after a neighbor was concerned that the patient was not taking care of himself, the patient was found to be significantly dehydrated #? KATHERINE--likely d/t prerenal state, improving -? likely secondary to dehydration - the patient was incontinent of urine and refused a Vera catheter -? no evidence of acute infection, afebrile, no leukocytosis -? continue IVF and trend BMP, renal consult -check labs tomorrow #? Acute Dehydration--IV water replacement #? Adult failure to thrive #Severe protein calory malnutrition -? likely in the setting of HIV, history of hep C infection as well? as IV drug use -? care team consulted -? will need case management -? nutritional consult # HIV/AIDS complex - Likely not compliant with treatment - pending CD4 count--54 - no evidence of acute infection - refused head CT -restarted on Bictarvy -Mepron for PCP prophylaxis #DM -SSI - diabetic diet DVT ppx: heparin sub Need for inpatient: management with KATHERINE, hypernatremia with IVF,? CM working on safe dispo Quality Stroke Does the patient have a stroke diagnosis?: No VTE Prior VTE?: No VTE Risk Level:: Medical - moderate - high VTE Device Contraindication: Treatment Not Indicated VTE Drug Contraindication: N/A - Med Ordered
[2022-04-12 11:57] LABS: Glucose, Whole Blood 333 mg/dL (60-115)
--- NOTE | 2022-04-12 13:59 | MHC.CM.PN ---
CONTACT NUMBER FOR BROTHER ELIEZER [phone] DOES NOT SEEM TO BE WORKING
--- NOTE | 2022-04-12 15:20 | MHC.CM.PN ---
MESSAGE LEFT FOR TELEPHONIC NURSE SERVICES AT [phone] FOR ASSISTANCE WITH CASE MANAGEMENT ASSESSMENT.
[2022-04-12 15:42] VITALS: BP 100/56; PULSE 75; RESP 18; TEMP 36.4; O2SAT 100
--- NOTE | 2022-04-12 16:00 | MHC.CM.PN ---
PATIENT LIVES ALONE. HE USES [facility] WHEN HE NEEDS TO TRAVEL ANYWHERE. NO LONGER HAS [employer]AD [employer] SERVICES.''NO [facility] SERVICES. UNSURE OF [facility] STATUS AND CM CAN CONTACT DR MEJIA OFFICE TO FIND OUT. PATIENT RELIES ON ACANE. HE STATES THAT NO ONE COMES TO HIS HOME TO BRING NARCOTICS, BUT THAT HE GOES OUT OF HOME A SHORT DISTANCE. PATIENT AGREES THAT HE WANTS TO RESECURE HIS HEALTH. WHEN ASKED WHY HE STOPPED HIS ANTI-RETRO VIRAL MEDS, HE REPLIES I DID NOT WANT THEM ANYMORE . HE AGREES THAT STAFF CAN APEAK WITH SISTER, JESSE CROUCH, BUT DOES NOT RECALL HER NUMBER. HE STATES THAT HER LAST NAME WAS CHANTE. PATIENT THEN RECALLS THAT SISTER . CASE MANAGEMENT TO CONTINUE TO ATTEMPT A HCP PER CONVERSATION WITH [facility] TRANSITION OF CARE RN, (CARLTON [phone]) SHE AGREES TO REFERRALS TO CONTRACTED FACILITIES AND IS AWARE IT MAY BE STR AND IT MAY BE HALFWAY. ASSESSMENT PERFORMED WITH ASSIST OF INSURANCE POLICY CLERK
[2022-04-12 16:07] LABS: Glucose, Whole Blood 166 mg/dL (60-115)
[2022-04-12] MEDS: Sodium Bicarbonate 650 MG TABLET PO ×2 (16:10→20:59)
[2022-04-12 19:51] VITALS: BP 95/51; PULSE 71; RESP 18; TEMP 35.8; O2SAT 100
[2022-04-12 20:19] LABS: Glucose, Whole Blood 192 mg/dL (60-115)
[2022-04-12 23:34] VITALS: BP 115/57; PULSE 81; RESP 18; TEMP 35.6; O2SAT 100
[2022-04-13] VITALS (10 sets, daily range): BP systolic 81–100; BP diastolic 50–91; PULSE 66–98; RESP 12–27; TEMP 35.5–37.1; O2SAT 97–100
--- NOTE | 2022-04-13 03:49 | MHC.PIE ---
p; bp low 80/55 manual. temp low at 96.0. pt unable to close mouth for oral temp and anal temp unable to read. i; hot packs placed on pt , warm blanktsplaced. i; dr baldwin notified; new order ns bolus now. bear hugger now e; will cont to monitor
[2022-04-13 04:11] LABS: Anion Gap 12 (12-20); Blood Urea Nitrogen 97 mg/dL (9-16); Calcium 9.3 mg/dL (8.4-10.2); Carbon Dioxide 19 mmol/L (22-29); Chloride 118 mmol/L (96-108); Creatinine Clr Calc Pharmacy 23.2; Estimated Glomerular Filt Rate 36; Glucose Random 154 mg/dL (60-115); Potassium 4.2 mmol/L (3.3-5.1); Sodium 145 mmol/L (135-145)
[2022-04-13 04:21] LABS: Lactic Acid 2.1 mmol/L (0.5-2.0)
[2022-04-13 05:55] LABS: Reflex Lactate? Lactic Acid Added
[2022-04-13 06:36] LABS: ~Lactic Acid-LAB USE ONLY 1.1 mmol/L (0.5-2.0)
--- NOTE | 2022-04-13 07:07 | PM.EVENT ---
Event Note Date of Service: 04/13/22 Event Note: Patient developed hypothermia, as well as hypotension, treated with IV fluid, Gemma Rose, Will obtain lactic acid
[2022-04-13 07:42] LABS: Glucose, Whole Blood 163 mg/dL (60-115)
--- NOTE | 2022-04-13 08:12 | P.PNIM_ITS ---
Subjective Subjective Date of Service: 04/13/22 Interval History: Seen in f/u for failure to thrive, KATHERINE, dehydration Interval history: Hypotensive, hypothermic overnight with elevated lactic acidosis, give IVF for improvement no source of infection Review of Systems no fever emaciated Physical Exam Vital Signs: Vital Signs: Last Vital Signs Temp 96.8 F 04/13/22 04:46 Pulse 78 04/13/22 04:46 Resp 20 04/13/22 03:37 BP 100/56 L 04/13/22 04:46 Pulse Ox 100 04/13/22 04:46 O2 Del Method 04/13/22 04:46 BMI result Body Mass Index 13.6 Const: Other: General: calm, no agitation Resp: CTA bilateral CVS: S1,S2,RRR GI: +BS, NT, no distention Skin: No rash Neuro: motor grossly intact Psych: flat affect Objective Data Active Medications Acetaminophen (Acetaminophen 325 Mg Tablet) 650 mg PO Q6H PRN PRN Reason: Pain, Mild (Pain Scale 1-3) Atovaquone (Atovaquone 750 Mg/5 Ml Oral.Susp) 1,500 mg PO DAILY [facility] Last Admin: 04/12/22 08:37 Dose: 1,500 mg Documented By: MARY Bictegravir/Emtricitabine/Tenofovir (Bictegrav/Emtricit/Tenofov Ala Tablet) 1 tab PO DAILY [facility] Last Admin: 04/12/22 08:37 Dose: 1 tab Documented By: MARY Dextrose (Dextrose 50 % 25 Gm/50 Ml Syringe) 25 gm IVPUSH Q15M PRN; Protocol PRN Reason: per Hypoglycemia Standing Ord. Glucose (Glucose Gel 15 Gm Gel..Gram.) 15 gm PO Q15M PRN; Protocol PRN Reason: per Hypoglycemia Standing Ord. Heparin Sodium (Porcine) (Heparin Sodium,Porcine 5,000 Unit/Ml Vial) 5,000 unit SUBCUT Q12H [facility] Last Admin: 04/12/22 21:00 Dose: 5,000 unit Documented By: BRENDA Insulin Human Lispro (Insulin Lispro 100 Unit/Ml 3 Ml Vial) 0 unit SUBCUT QIDACHS [facility]; Protocol Last Admin: 04/12/22 20:59 Dose: 2 unit Documented By: BRENDA Ondansetron HCl (Ondansetron Hcl 4 Mg/2 Ml Vial) 4 mg IVPUSH Q8H PRN PRN Reason: Nausea and Vomiting Pharmacy Consult (Consult Rx Perform Med Rec) 1 each MISCELLANE ONCE PRN PRN Reason: Consult order Sodium Bicarbonate (Sodium Bicarbonate 650 Mg Tablet) 650 mg PO TID [facility] Last Admin: 04/12/22 20:59 Dose: 650 mg Documented By: BRENDA Sodium Chloride (0.9 % Sodium Chloride Flush 3 Ml Syringe) 3 ml IVFLUSH QSHIFT [facility] Last Admin: 04/12/22 21:00 Dose: 3 ml Documented By: BRENDA Labs CBC & Chem 7: 04/09/22 04:01 04/13/22 03:51 Labs: Laboratory Results - last 24 hr 04/12/22 04/12/22 04/12/22 11:12 15:44 20:00 Anion Gap Estim Creat Clear Calc Estimated GFR POC Glucose 333 H 166 H 192 H Random Glucose Lactic Acid Lactic Acid F/U @ 2Hr Calcium 04/13/22 04/13/22 04/13/22 03:51 03:51 06:02 Anion Gap 12 Estim Creat Clear Calc 23.2 Estimated GFR 36 POC Glucose Random Glucose 154 H Lactic Acid 2.1 H* Lactic Acid F/U @ 2Hr 1.1 Calcium 9.3 04/13/22 07:31 Anion Gap Estim Creat Clear Calc Estimated GFR POC Glucose 163 H Random Glucose Lactic Acid Lactic Acid F/U @ 2Hr Calcium Microbiology Microbiology Results: Microbiology 04/10/22 20:00 Urine Culture - Final Urine clean catch - Urine hardin top Assessment and Plan (1) Adult failure to thrive: Status: Acute (2) Acute kidney injury: Status: Acute (3) Acute dehydration: Status: Acute (4) AIDS: Status: Acute Plan A 56-year-old male with a past medical history of HIV come presents to the hospital after a neighbor was concerned that the patient was not taking care of himself, the patient was found to be significantly dehydrated #? KATHERINE--likely d/t prerenal state, improving -? likely secondary to dehydration - He refused mojica -? continue IVF and monitoring BMP, renal consult -Cr seem to be plateauing around 1.9 #? Acute Dehydration--IV water replacement #? Adult failure to thrive #Severe protein calory malnutrition -? likely in the setting of HIV, history of hep C infection as well? as IV drug use -? care team consulted -? will need case management -? nutritional consult # HIV/AIDS complex - Likely not compliant with treatment - pending CD4 count--54 - no evidence of acute infection - refused head CT -restarted on Bictarvy -Mepron for PCP prophylaxis #Hypothermia, Hypotension, no source of infectious,, monitor for now but low threshold to initiate Blood Spec Abx--BCx pending, get UA and CXR #DM -SSI - diabetic diet DVT ppx: heparin sub Need for inpatient: management with KATHERINE, hypernatremia with IVF,? CM working on safe dispo Quality Stroke Does the patient have a stroke diagnosis?: No VTE Prior VTE?: No VTE Risk Level:: Medical - moderate - high VTE Device Contraindication: Treatment Not Indicated VTE Drug Contraindication: N/A - Med Ordered
[2022-04-13] MEDS: Atovaquone 750 MG/5 ML ORAL.SUSP 1500 MG PO (08:40)
[2022-04-13] MEDS: Insulin Lispro 100 UNIT/ML 3 ML VIAL SUBCUT ×3 (08:41→21:38)
[2022-04-13] MEDS: Sodium Bicarbonate 650 MG TABLET PO ×2 (08:41→21:39)
[2022-04-13] MEDS: Bictegrav/Emtricit/Tenofov Ala TABLET 1 TAB PO (08:41)
[2022-04-13] MEDS: Heparin Sodium,Porcine 5,000 UNIT/ML VIAL 5000 UNIT SUBCUT ×2 (08:41→21:39)
[2022-04-13] MEDS: 0.9 % Sodium Chloride Flush 3 ML SYRINGE IVFLUSH ×2 (08:42→16:03)
--- NOTE | 2022-04-13 09:38 | MHC.CLN ---
F/U PT IS SEVERELY MALNOURISHED. RECEIVING IV FLUIDS. DIET=REGULAR WITH ENSURE TID (1050 KCALS, 60 G PROTEIN). NOT TAKING MEALS. CHRONIC POOR PO INTAKE DUE TO AFTT, HIV AND HEROIN USE. FOLLOW FOR INTAKE AND CONSIDER ALTERNATE NUTRITION IF APPROPRIATE.
[2022-04-13] MEDS: 0.9 % Sodium Chloride 500 ML IV (09:57)
[2022-04-13 11:29] LABS: Glucose, Whole Blood 131 mg/dL (60-115)
--- NOTE | 2022-04-13 11:46 | MHC.CM.PN ---
PER MD ROUNDS, PT LIKELY TO REMAIN OVER THE WEEKEND
[2022-04-13] MEDS: Hydrocortisone Sod Succ/PF 100 MG VIAL IVPUSH (12:14)
--- NOTE | 2022-04-13 13:20 | PM.PNNEP ---
Subjective Subjective Date of Service: 04/13/22 Interval history: Events noted. All recent data reviewed Physical Exam Vital Signs: Vital Signs: Last Vital Signs Temp 96.5 F L 04/13/22 12:00 Pulse 80 04/13/22 12:00 Resp 20 04/13/22 12:00 BP 90/51 L 04/13/22 12:00 Pulse Ox 100 04/13/22 12:00 O2 Del Method 04/13/22 12:00 BMI result Body Mass Index 13.6 Const: Other: Emaciated Eyes: EOM: EOMs intact bilaterally Neck: Neck: Yes supple Resp: Auscultation: diminished lung sounds Cardio: Rate: regular rate GI: Palpation (GI): Soft to palpation Neuro: General: moves all extremities Objective Data Labs CBC & Chem 7: 04/09/22 04:01 04/13/22 03:51 Labs: Laboratory Results - last 24 hr 04/12/22 04/12/22 04/13/22 15:44 20:00 03:51 Sodium 145 Potassium 4.2 Chloride 118 H Carbon Dioxide 19 L Anion Gap 12 BUN 97 H Creatinine 1.93 H Estim Creat Clear Calc 23.2 Estimated GFR 36 POC Glucose 166 H 192 H Random Glucose 154 H Lactic Acid Lactic Acid F/U @ 2Hr Calcium 9.3 04/13/22 04/13/22 04/13/22 03:51 06:02 07:31 Sodium Potassium Chloride Carbon Dioxide Anion Gap BUN Creatinine Estim Creat Clear Calc Estimated GFR POC Glucose 163 H Random Glucose Lactic Acid 2.1 H* Lactic Acid F/U @ 2Hr 1.1 Calcium 04/13/22 11:19 Sodium Potassium Chloride Carbon Dioxide Anion Gap BUN Creatinine Estim Creat Clear Calc Estimated GFR POC Glucose 131 H Random Glucose Lactic Acid Lactic Acid F/U @ 2Hr Calcium Microbiology Microbiology Results: Microbiology 04/10/22 20:00 Urine clean catch - Urine hardin top Urine Culture - Final Procedures Date of Service Date of Service: 04/13/22 Assessment & Plan Assessment and plan (1) Acute kidney injury: Status: Acute Assessment and Plan: KATHERINE due to tubular injury ; Serum creatinine stable on PO Bicarb ; C/W rest of current supportive care Time Spent With Patient Time: Total time spent is greater than 50% in coordination of care (as documented) at patient's floor/unit and/or counseling patient: Progress Note: Quality Stroke Does the patient have a stroke diagnosis?: No
[2022-04-13 16:08] LABS: Glucose, Whole Blood 347 mg/dL (60-115)
[2022-04-13 17:31] LABS: Glucose, Whole Blood 311 mg/dL (60-115)
--- NOTE | 2022-04-13 18:05 | P.CONCC_ITS ---
History of Present Illness Data of Consult Service Date: 04/13/22 Requesting physician: Pérez Smith Primary Care Provider: None Physician HPI Dr. Smith called me about Mr. Hamm, a 56-year-old male with AIDS, failure to thrive, and cachexia. Wt 39Kg. Today hypotensive and hypothermic and unresponsive. No NOK or HCP to make decisions We arranged for transfer to ICU, workup for sepsis. We'll see what we can do for him. On arrival to ICU, HR 90, SR. BP 86/54 (with a pediatric cuff). Sat 100% on RA. Arjun Tee breathing. Initially eyes open and unresponsive, no response to confrontation. But he woke up when we started putting the Vera catheter in. Moving all 4, saying he wants to go home. No JVD. Chest CTA, normal exp phase. RRR, normal S1 and S2, no Mor G. Abd flat, benign. No edema. We had to emergently give him propofol (total of 50 mg) to get the Vera catheter in. Mental status is waxing and waning. Temperature was 97.9 degrees. My bedside echocardiogram: Overall fairly normal right and left heart. Normal LV wall thickness. Normal cavity size. Trace TR, trace MR. Continuous wave Doppler envelope measured 2.0 m/sec. IVC measured 1 point 3 cm with about 50% inspiratory collapse. Normal RVSP. Labs as noted below. IMPRESSION: 1. AIDS 2. Cachexia with failure to thrive. 3. Severe protein calorie malnutrition. 4. Acute kidney injury. 5. Hypovolemia. Will gently rehydrate with crystalloid and colloid. 6. Possible sepsis. Cultures were done this morning and the patient was started on Zosyn. Redrawing a lactate, CBC, and CMP now. 7. Altered mental status. Unclear etiology. Check ammonia level, check blood gas. Mass in left occipital region. 8. Intracerebral complex mass on head CT from 04/10. Need to talk to radiology about it. Obvious concern for infectious etiologies characteristic in HIV patients Overall, this patient looks cadaveric, literally, like a concentration camp survivor. We rarely see patients like this. Prognosis is grave. Obvious concern about code status and the advisability vis-a-vis survivability of life support in such a patient. Time (including chart rev, carlos d/w Dr. Smith, mult d/w TOMASZ Rachel): 90+ min [facility] Past Medical History Medical History Anxiety Depression Diabetes Drug abuse Hepatitis C HIV (human immunodeficiency virus infection) HTN (hypertension) MSSA bacteremia Family History Family History Father Alcoholism Mother Type 2 diabetes mellitus Sister No problems noted. Sister No problems noted. Brother No problems noted. Son No problems noted. Family history: reviewed and not pertinent Surgical History Surgical History History of repair of laceration Social History Social History Household Members: None Housing: Apartment Do you presently have visiting nurse or other home services: No Alcohol intake: current Alcohol intake frequency: holidays/special occasions only Patient Tobacco Use Status: Current everyday Tobacco user Cigarette Packs Per Day: 1 Cigarettes Per Day: 20.0 Years Smoked: 23 Second Hand Smoke Exposure: No Substance Use Type: Heroin service: No Current occupational status: unemployed Meds Allergies Allergy/AdvReac Type Severity Reaction Status Date / Time Sulfa (Sulfonamide Allergy Mild RASH Verified 11/02/20 10:47 Antibiotics) [Sulfa (Sulfonamides)] Active Medications: Current Medications Acetaminophen (Acetaminophen 325 Mg Tablet) 650 mg PO Q6H PRN PRN Reason: Pain, Mild (Pain Scale 1-3) Atovaquone (Atovaquone 750 Mg/5 Ml Oral.Susp) 1,500 mg PO DAILY [facility] Last Admin: 04/13/22 08:40 Dose: 1,500 mg Bictegravir/Emtricitabine/Tenofovir (Bictegrav/Emtricit/Tenofov Ala Tablet) 1 tab PO DAILY [facility] Last Admin: 04/13/22 08:41 Dose: 1 tab Dextrose (Dextrose 50 % 25 Gm/50 Ml Syringe) 25 gm IVPUSH Q15M PRN; Protocol PRN Reason: per Hypoglycemia Standing Ord. Glucose (Glucose Gel 15 Gm Gel..Gram.) 15 gm PO Q15M PRN; Protocol PRN Reason: per Hypoglycemia Standing Ord. Heparin Sodium (Porcine) (Heparin Sodium,Porcine 5,000 Unit/Ml Vial) 5,000 unit SUBCUT Q12H [facility] Last Admin: 04/13/22 08:41 Dose: 5,000 unit Sodium Chloride (Ns) 1,000 mls @ 500 mls/hr IVCONT .Q2H [facility] Stop: 04/13/22 18:14 Piperacillin Sod/Tazobactam (Sod 2.25 gm/ Sodium Chloride) 50 mls @ 100 mls/hr IV Q6H [facility] Insulin Human Lispro (Insulin Lispro 100 Unit/Ml 3 Ml Vial) 0 unit SUBCUT QIDA [facility]; Protocol Last Admin: 04/13/22 12:25 Dose: Not Given Ondansetron HCl (Ondansetron Hcl 4 Mg/2 Ml Vial) 4 mg IVPUSH Q8H PRN PRN Reason: Nausea and Vomiting Pharmacy Consult (Consult Rx Perform Med Rec) 1 each MISCELLANE ONCE PRN PRN Reason: Consult order Propofol (Propofol 200 Mg/20 Ml Vial) 50 mg IVPUSH ONCE ONE Stop: 04/13/22 18:04 Sodium Bicarbonate (Sodium Bicarbonate 650 Mg Tablet) 650 mg PO TID [facility] Last Admin: 04/13/22 16:03 Dose: Not Given Sodium Chloride (0.9 % Sodium Chloride Flush 3 Ml Syringe) 3 ml IVFLUSH QSHIFT [facility] Last Admin: 04/13/22 16:03 Dose: 3 ml Home Medications Medication Instructions Recorded Confirmed Last Taken Type albuterol sulfate 90 mcg/actuation 2 puff PO Q4-6H PRN Wheezing 04/08/22 04/08/22 Unknown History aerosol inhaler (Ventolin HFA) bictegravir 50 mg-emtricitabine 1 tab PO DAILY 04/08/22 04/08/22 Unknown History 200 mg-tenofovir alafenam 25 mg tablet (Biktarvy) fluticasone propionate 44 2 puff PO BID 04/08/22 04/08/22 Unknown History mcg/actuation HFA aerosol inhaler (Flovent HFA) insulin glargine 100 unit/mL 18 unit subcut BEDTIME 04/08/22 04/08/22 Unknown History subcutaneous solution (Lantus U-100 Insulin) metformin 850 mg tablet 1 tab PO BID 04/08/22 04/08/22 Unknown History Physical Exam Vital Signs: Vital Signs: Last Vital Signs Temp 98.7 F 04/13/22 15:51 Pulse 88 04/13/22 15:51 Resp 16 04/13/22 15:51 BP 89/56 L 04/13/22 15:51 Pulse Ox 100 04/13/22 15:51 O2 Del Method 04/13/22 15:51 BMI result Body Mass Index 13.6 Results Labs CBC & Chem 7: 04/13/22 18:52 04/13/22 18:52 Labs: BMP 04/13/22 03:51 Sodium 145 Potassium 4.2 Chloride 118 H Carbon Dioxide 19 L BUN 97 H Creatinine 1.93 H Calcium 9.3 Microbiology Microbiology Results: Microbiology 04/10/22 20:00 Urine clean catch - Urine hardin top Urine Culture - Final
[2022-04-13] MEDS: Dextrose 5 % and 0.45 % NaCl 1,000 ML 100 ML IVCONT (18:30)
[2022-04-13 18:32] LABS: Appearance Urine CLEAR; Color Urine YELLOW; Glucose Urine UA 100 MG/DL (NEG); Leukocyte Esterase Urine 2+ (NEG); Nitrite Urine POS (NEG); PH 5.5 (5.0-8.0); Specific Gravity - Urine 1.015 (1.005-1.025); Urine Blood 2+ (NEG); Urine Ketones NEG (NEG); Urine Protein NEG (NEG-TRACE)
[2022-04-13] MEDS: propofoL 200 MG/20 ML VIAL 50 MG IVPUSH (18:34)
[2022-04-13] MEDS: Albumin Human 25 % 100 ML IV (18:34)
[2022-04-13] MEDS: Piperacillin Sodium/Tazobactam 2.25 GM in 0.9 % Sodium Chloride 50 ML IV (18:35)
[2022-04-13 18:41] LABS: Sodium Urine Random < 20.0 mmol/L
[2022-04-13] MEDS: Nicotine 21 MG PATCH.TD24 TRANSDERMA (18:47)
[2022-04-13 18:56] LABS: WBC Urine 30-49 /HPF (0-4)
[2022-04-13 18:57] LABS: Bacteria Urine 4+ /LPF
[2022-04-13 18:57] LABS: Venous Blood Gas Refer to POC result
[2022-04-13 18:59] LABS: Hematocrit 29.9 % (42.0-52.0); Hemoglobin 9.7 g/dl (14.0-18.0); Mean Corpuscular HGB Conc 32.4 g/dl (31.0-36.0); Mean Corpuscular Hemoglobin 29.4 pg (27.0-33.0); Mean Corpuscular Volume 90.6 fL (80.0-98.0); Red Cell Distribution Width 18.7 % (11.0-16.0); White Blood Count 4.6 X10*3/uL (4.8-10.8)
[2022-04-13 19:01] LABS: VBG Base Excess -6.7 mmol/L; VBG HCO3 15 mmol/L (22-26); VBG pCO2 21 mmHg; VBG pH 7.46 (7.32-7.43); VBG pO2 71 mmHg
[2022-04-13 19:10] LABS: Ammonia 28 umol/L (13-55)
[2022-04-13 19:14] LABS: Lactic Acid 1.6 mmol/L (0.5-2.0)
[2022-04-13 19:16] LABS: Platelet Count 65 X10*3/uL (160-400)
[2022-04-13 19:18] LABS: C Reactive Protein 3.91 mg/dL (< or = 0.50); Magnesium 2.2 mg/dL (1.6-2.6); Phosphorus 3.5 mg/dL (2.7-4.5)
[2022-04-13 19:45] LABS: Alanine Aminotransferase 8 U/L (0-40); Albumin Level 2.4 g/dL (3.5-5.0); Alkaline Phosphatase 71 U/L (39-117); Anion Gap 12 (12-20); Aspartate Amino Transferase 13 U/L (5-37); Bilirubin Total 0.5 mg/dL (0.0-1.0); Blood Urea Nitrogen 91 mg/dL (9-16); Calcium 8.5 mg/dL (8.4-10.2); Carbon Dioxide 17 mmol/L (22-29); Chloride 121 mmol/L (96-108); Estimated Glomerular Filt Rate 36; Glucose Random 313 mg/dL (60-115); Potassium 4.9 mmol/L (3.3-5.1); Sodium 145 mmol/L (135-145); Total Protein 7.3 g/dL (6.5-8.0)
[2022-04-13 19:50] LABS: Procalcitonin 1.23 ng/mL
--- NOTE | 2022-04-13 20:07 | PC.NURSE ---
Assumed care at 18:00. Patient transferred from floor to unit related to unarousable status. He is Chinese speaking mostly. He had been hypothermic earlier, but is now euthermic with oral temperatures of 97.9 and 97.3; no bert hugger at this time per MD. On arrival, patient was very drowsy, but through administering care, he woke up and was found to be arousable and oriented to person, place, and vague to situation, total disorientation to time. Endorsed having family that lives far away, does not recall phone numbers or names of family at this time. Patient discusses some desire to leave against medical advice, and MD aware, patient redirected with education about his health status. Patient is somewhat tachypneic at times 30-40 RR shallow respirations. NAUN soft but MAP>65. Sinus rhythm on monitor. 22G right Forearm, 20 G left Forearm. [place]-Tee respirations per MD, POC was 311, covered with 8 units. Patient endorses very poor appetite and has evident sarcopenia, D5 1/2 NS at 100 / hour started, Albumin 25 GM given per MD. Patient with extensive difficulty with mojica placement, and was eventually placed a Coude catheter. Draining clear yellow urine. Skin appears to be intact.
[2022-04-13 21:37] LABS: Glucose, Whole Blood 167 mg/dL (60-115)
[2022-04-13] MEDS: Sodium Bicarbonate 8.4% 50 MEQ/50 ML SYRINGE IVPUSH (21:39)
--- NOTE | 2022-04-13 21:54 | PC.NURSE ---
Vera catheter inserted prior to this RN's shift
--- NOTE | 2022-04-13 22:37 | PM.EVENT ---
Event Note Date of Service: 04/13/22 Event Note: pt has been stable in the icu he is being transferred out of the ICU as he is stable, and bp stable and also due to short staff MRI was done for the pt by icu as pt had abnormality of CT of the head . MRI concerning for possible toxoplasmosis will treat with [id number] and reconsult ID
--- NOTE | 2022-04-13 22:51 | P.EN_ITS ---
Event Note Date of Service: 04/13/22 Event Note: This patient was signed out to me by Dr. Feng , the patient is 48-year-old gentleman speaks Divehi mostly with history of AIDS, hepatitis-C, IV drug abuse, cachexia, failure to thrive who had been admitted on 04/08/2022 due to acute kidney injury and dehydration.? Patient has been receiving IV fluids, his creatinine has been getting better but some how plateaued at 1.9, his CD4 count was noted to be 54 and patient was restarted on Mepron, Bactrim and Bictarvy. Onto the patient had been noted to be no responding, hypothermic and hypotensive, given the concern of severe sepsis the patient was transferred to the ICU.? It was noted here that his temperature was a rather normal at 97.4 rectally, his blood pressure has never gone down below 85 systolic.? The patient did react to placement of a Vera catheter and because of his reaction he had to be given propofol in order to finish the procedure. Subsequently patient woke up, is able to speak to me in full sentences in Divehi, he is alert to person and place but not to time. ?His able to follow commands upon request.? Patient denies any headache, visual disturbance shortness of breath, abdominal pain difficulty moving upper lower extremities. He however does not seem to realize that he is significantly ill and often times asks when he is going to be ready to go home. Upon further review of the chart, although it was mentioned that the patient had refused a head CT although it today, 1 was found on record with the following findings. Physical exam 96/57, 65, 12, 97% room air Patient appears cachectic, alert to person and place but not to time Poor hygiene of the skin.? No open lesions. Regular rate and rhythm no murmurs, rubs, gallops Lungs clear to auscultation bilaterally Musculoskeletal shows wasting and very little muscle mass.? Full range of motion of upper lower extremities upon request the major joints, no calf tenderness, no edema. Neuro no gross focal deficits. Chart and labs reviewed; Cr. 1.9; UA (+); Images present Head CT from 04/10/22 IMPRESSION: There is an expansile lesion involving the left occipital lobe that appears to extend into the splenium of the corpus callosum. This finding is new when compared to prior imaging from 08/18/2012. A dedicated brain MRI without and with contrast is recommended for better anatomic characterization of this finding. Possible diagnostic considerations include a primary intracranial neoplasm, evolving subacute infarct, or intracranial metastatic disease. Initial Plan At this point, decision was made to discussed the case in detail with [facility] is given the significant irregular of these occipital abnormality which to my view presents central foci, there is no midline shift son likely that this would be a glioblastoma or a malignant mass but then again is to be further defined. The patient has been started on Zosyn renally adjusted dose given that he appears to have a urinary tract infection further is positive nitrates, leukocytes esterase and white blood cells as well as red blood cells per high- power field and bacteria but no squamous epithelial cells.? His random urine sodium less than 20. Will increase IVF rate. BRAIN MRI NON CONTRAST IMPRESSION: Extensive heterogeneous mildly expansile T2/FLAIR hyperintensity noted involving the left occipital and posterior temporal lobe and to lesser extent in the right occipital lobe. Confluent signal abnormality is seen extending into the left more than right parahippocampal gyri and corpus callosum splenium. Cortical laminar necrosis is seen scattered throughout this region. Possible etiologies include immunodeficiency associated SURGICAL PROCESSOR lymphoma or toxoplasmosis. A primary glial neoplasm is difficult to exclude. Posterior reversible encephalopathy syndrome considered but is felt to be less likely ? T2 hyperintensity and hemorrhage is seen within the right basal ganglia and right inferior frontal lobe white matter could represent a manifestation of toxoplasmosis. ? Small foci of subacute infarction seen in the bilateral parietal lobes. ? Small amount of layering hemorrhage seen within the left occipital horn. Revised Plan: At this point, the patient will need to be started on treatment perhaps Sulfadiazine and pyrimethamine and +/- Leucovorin to prevent pyrimethamine induced toxicity; for what I presume would be findings consistent with toxoplasmosis.? Infectious Disease should be called. If the patient develops further SURGICAL PROCESSOR symptoms this could be related to toxoplasmosis encephalitis.? Often times with presented with headache and confusion.? But is not neurological symptoms can easily present with dull headache all the way to coma. I will stop heparin given a small hemorrhages noted in the anterior aspect of right basal ganglia and right inferior frontal lobe. History receive pneumatic stockings. At this point the patient is to be transferred out of the ICU, he has remained hemodynamically stable without any vasopressors.? I will increase IV fluids (D5 half normal saline to 200 cc an hour. The case was discussed in detail with patient [place] [facility] [place] Case was discussed in detail with Dr. Feng.? He is aware of all the above as well as the plan of care for this patient. Total time spent with this patient 90 minutes of critical care due to the complexity of his current presentation, review of his medical record, planning and coordination of care.
[2022-04-13 23:14] LABS: Cortisol Random 16.3 ug/dL
[2022-04-13] MEDS: Sulfamethoxazole/Trimethoprim 160 MG in Dextrose 5 % 500 ML 225 MG IV (23:37)
[2022-04-14] VITALS (10 sets, daily range): BP systolic 90–110; BP diastolic 50–72; PULSE 60–87; RESP 15–20; TEMP 35.1–36.3; O2SAT 99–100
[2022-04-14] MEDS: Piperacillin Sodium/Tazobactam 2.25 GM in 0.9 % Sodium Chloride 50 ML IV ×2 (01:22→06:43)
[2022-04-14] MEDS: 0.9 % Sodium Chloride Flush 3 ML SYRINGE IVFLUSH ×3 (01:23→21:51)
[2022-04-14 08:13] LABS: Glucose, Whole Blood 168 mg/dL (60-115)
--- NOTE | 2022-04-14 08:26 | HO.PM.IMPN ---
Subjective Subjective Date of Service: 04/14/22 Interval History: Seen in f/u for failure to thrive, KATHERINE, dehydration Interval history: Hypotension, hypothermia resolved, MRI finding overnight suggestive of Toxo, was briefly in ICU yesterday d/t hypotenion and decrease responsiveness Review of Systems no fever emaciated Physical Exam Vital Signs: Vital Signs: Last Vital Signs Temp 97.0 F 04/14/22 07:51 Pulse 71 04/14/22 07:51 Resp 15 04/14/22 07:51 BP 104/72 04/14/22 07:51 Pulse Ox 99 04/14/22 07:51 O2 Del Method 04/14/22 07:51 BMI result Body Mass Index 13.6 Const: Other: General: calm, no agitation Resp: CTA bilateral CVS: S1,S2,RRR GI: +BS, NT, no distention Skin: No rash Neuro: motor grossly intact Psych: flat affect Objective Data Active Medications Acetaminophen (Acetaminophen 325 Mg Tablet) 650 mg PO Q6H PRN PRN Reason: Pain, Mild (Pain Scale 1-3) Atovaquone (Atovaquone 750 Mg/5 Ml Oral.Susp) 1,500 mg PO DAILY [facility] Last Admin: 04/13/22 08:40 Dose: 1,500 mg Documented By: MARY Bictegravir/Emtricitabine/Tenofovir (Bictegrav/Emtricit/Tenofov Ala Tablet) 1 tab PO DAILY [facility] Last Admin: 04/13/22 08:41 Dose: 1 tab Documented By: MARY Dextrose (Dextrose 50 % 25 Gm/50 Ml Syringe) 25 gm IVPUSH Q15M PRN; Protocol PRN Reason: per Hypoglycemia Standing Ord. Glucose (Glucose Gel 15 Gm Gel..Gram.) 15 gm PO Q15M PRN; Protocol PRN Reason: per Hypoglycemia Standing Ord. Hydromorphone HCl (Hydromorphone Hcl 0.5 Mg/0.5 Ml Syringe) 0.25 mg IVPUSH Q2H PRN; Protocol PRN Reason: Pain, Moderate (Pain Scale 4-6 Piperacillin Sod/Tazobactam (Sod 2.25 gm/ Sodium Chloride) 50 mls @ 100 mls/hr IV Q6H [facility] Last Admin: 04/14/22 06:43 Dose: 100 mls/hr Documented By: CHRISTO Dextrose/Sodium Chloride (D51/2ns) 1,000 mls @ 200 mls/hr IVCONT .Q5H [facility] Last Admin: 04/14/22 04:28 Dose: Not Given Documented By: CHRISTO Non-Admin Reason: IV Running Trimethoprim/Sulfamethoxazole (160 mg/ Dextrose) 510 mls @ 225 mls/hr IV Q12H [facility] Last Infusion: 04/14/22 02:32 Dose: 0 mls/hr Documented By: CHRISTO Insulin Human Lispro (Insulin Lispro 100 Unit/Ml 3 Ml Vial) 0 unit SUBCUT QIDACHS [facility]; Protocol Last Admin: 04/13/22 21:38 Dose: 2 unit Documented By: MARIUSZ Nicotine (Nicotine 21 Mg Patch.Td24) 21 mg TRANSDERMA DAILY [facility] Last Admin: 04/13/22 18:47 Dose: 21 mg Documented By: DIOR Ondansetron HCl (Ondansetron Hcl 4 Mg/2 Ml Vial) 4 mg IVPUSH Q8H PRN PRN Reason: Nausea and Vomiting Pharmacy Consult (Consult Rx Perform Med Rec) 1 each MISCELLANE ONCE PRN PRN Reason: Consult order Sodium Bicarbonate (Sodium Bicarbonate 650 Mg Tablet) 650 mg PO TID [facility] Last Admin: 04/13/22 21:39 Dose: 650 mg Documented By: MARIUSZ Sodium Chloride (0.9 % Sodium Chloride Flush 3 Ml Syringe) 3 ml IVFLUSH QSHIFT [facility] Last Admin: 04/14/22 01:23 Dose: 3 ml Documented By: IRVING Labs CBC & Chem 7: 04/13/22 18:52 04/13/22 18:52 Labs: Laboratory Results - last 24 hr 04/13/22 04/13/22 04/13/22 03:51 11:19 15:20 MCV MCH MCHC RDW Plt Count MPV Absolute Nucleated RBC Nucleated RBC % (auto) VBG pH VBG pCO2 VBG pO2 VBG HCO3 VBG O2 Saturation VBG Base Excess Anion Gap Estim Creat Clear Calc Estimated GFR POC Glucose 131 H 347 H Random Glucose Lactic Acid Calcium Phosphorus Magnesium Total Bilirubin AST ALT Alkaline Phosphatase Ammonia C-Reactive Protein Total Protein Albumin Procalcitonin Random Cortisol 16.3 Urine Color Urine Appearance Urine pH Ur Specific [place] Urine Protein Urine Glucose (UA) Urine Ketones Urine Blood Urine Nitrite Ur Leukocyte Esterase Urine RBC Urine WBC Ur Squamous Epith Cells Urine Bacteria Ur Random Sodium 04/13/22 04/13/22 04/13/22 16:58 18:17 18:17 MCV MCH MCHC RDW Plt Count MPV Absolute Nucleated RBC Nucleated RBC % (auto) VBG pH VBG pCO2 VBG pO2 VBG HCO3 VBG O2 Saturation VBG Base Excess Anion Gap Estim Creat Clear Calc Estimated GFR POC Glucose 311 H Random Glucose Lactic Acid Calcium Phosphorus Magnesium Total Bilirubin AST ALT Alkaline Phosphatase Ammonia C-Reactive Protein Total Protein Albumin Procalcitonin Random Cortisol Urine Color YELLOW Urine Appearance CLEAR Urine pH 5.5 Ur Specific [place] 1.015 Urine Protein NEG Urine Glucose (UA) 100 H Urine Ketones NEG Urine Blood 2+ H Urine Nitrite POS H Ur Leukocyte Esterase 2+ H Urine RBC 10-14 H Urine WBC 30-49 H Ur Squamous Epith Cells NONE Urine Bacteria 4+ Ur Random Sodium < 20.0 04/13/22 04/13/22 04/13/22 18:51 18:51 18:52 MCV 90.6 MCH 29.4 MCHC 32.4 RDW 18.7 H Plt Count 65 L MPV 11.0 Absolute Nucleated RBC 0.000 Nucleated RBC % (auto) 0.0 VBG pH VBG pCO2 VBG pO2 VBG HCO3 VBG O2 Saturation VBG Base Excess Anion Gap Estim Creat Clear Calc Estimated GFR POC Glucose Random Glucose Lactic Acid 1.6 Calcium Phosphorus Magnesium Total Bilirubin AST ALT Alkaline Phosphatase Ammonia 28 C-Reactive Protein Total Protein Albumin Procalcitonin Random Cortisol Urine Color Urine Appearance Urine pH Ur Specific [place] Urine Protein Urine Glucose (UA) Urine Ketones Urine Blood Urine Nitrite Ur Leukocyte Esterase Urine RBC Urine WBC Ur Squamous Epith Cells Urine Bacteria Ur Random Sodium 04/13/22 04/13/22 04/13/22 18:52 18:52 18:52 MCV MCH MCHC RDW Plt Count MPV Absolute Nucleated RBC Nucleated RBC % (auto) VBG pH VBG pCO2 VBG pO2 VBG HCO3 VBG O2 Saturation VBG Base Excess Anion Gap 12 Estim Creat Clear Calc 23.0 Estimated GFR 36 POC Glucose Random Glucose 313 H D Lactic Acid Calcium 8.5 D Phosphorus 3.5 Magnesium 2.2 Total Bilirubin 0.5 AST 13 D ALT 8 Alkaline Phosphatase 71 Ammonia C-Reactive Protein 3.91 H Total Protein 7.3 D Albumin 2.4 L D Procalcitonin 1.23 Random Cortisol Urine Color Urine Appearance Urine pH Ur Specific [place] Urine Protein Urine Glucose (UA) Urine Ketones Urine Blood Urine Nitrite Ur Leukocyte Esterase Urine RBC Urine WBC Ur Squamous Epith Cells Urine Bacteria Ur Random Sodium 04/13/22 04/13/22 04/14/22 18:57 21:32 08:08 MCV MCH MCHC RDW Plt Count MPV Absolute Nucleated RBC Nucleated RBC % (auto) VBG pH 7.46 H VBG pCO2 21 VBG pO2 71 VBG HCO3 15 L VBG O2 Saturation 94.0 VBG Base Excess -6.7 Anion Gap Estim Creat Clear Calc Estimated GFR POC Glucose 167 H 168 H Random Glucose Lactic Acid Calcium Phosphorus Magnesium Total Bilirubin AST ALT Alkaline Phosphatase Ammonia C-Reactive Protein Total Protein Albumin Procalcitonin Random Cortisol Urine Color Urine Appearance Urine pH Ur Specific [place] Urine Protein Urine Glucose (UA) Urine Ketones Urine Blood Urine Nitrite Ur Leukocyte Esterase Urine RBC Urine WBC Ur Squamous Epith Cells Urine Bacteria Ur Random Sodium Microbiology Microbiology Results: Microbiology 04/13/22 03:51 Blood Culture - Preliminary Blood - Venous No growth after 24 hours. 04/13/22 03:51 Blood Culture - Preliminary Blood - Venous No growth after 24 hours. Assessment and Plan (1) Adult failure to thrive: Status: Acute (2) Acute kidney injury: Status: Acute (3) Acute dehydration: Status: Acute (4) AIDS: Status: Acute Plan A 56-year-old male with a past medical history of HIV come presents to the hospital after a neighbor was concerned that the patient was not taking care of himself, the patient was found to be significantly dehydrated--Clincal presentation consitent with advanced AIDS #? KATHERINE--likely d/t prerenal state, improving -? likely secondary to dehydration -? continue IVF and monitoring BMP, renal consult -Cr seem to be plateauing around 1.9 #? Acute Dehydration--IV water replacement #? Adult failure to thrive #Severe protein calory malnutrition -? likely in the setting of HIV, history of hep C infection as well? as IV drug use -? care team consulted -? will need case management -? nutritional consult -Will consider PPN if oral intake continues to be # HIV/AIDS complex - Likely not compliant with treatment - pending CD4 count--54 - no evidence of acute infection - MRI of head wtih finding concerning for Toxo--ID to recommend treatment option -restarted on Bictarvy -Mepron for PCP prophylaxis--doesn't tolerate Bactrim #Hypothermia, HypOtension, no source of infectious,, infectious work up (UA, CXR, Blood) unrevealing, likely d/t low body fat and needs adequate covering..Hypotension resolved with IVF ... Not due to sepsis, DC Abx #DM -SSI - diabetic diet DVT ppx: heparin sub Need for inpatient: management with KATHERINE, hypernatremia with IVF,? 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
[2022-04-14] MEDS: Sodium Bicarbonate 650 MG TABLET PO ×3 (08:31→21:51)
[2022-04-14] MEDS: Atovaquone 750 MG/5 ML ORAL.SUSP 1500 MG PO (08:31)
[2022-04-14] MEDS: Insulin Lispro 100 UNIT/ML 3 ML VIAL SUBCUT ×3 (08:31→21:51)
[2022-04-14] MEDS: Dextrose 5 % and 0.45 % NaCl 1,000 ML 100 ML IVCONT (08:31)
[2022-04-14] MEDS: Nicotine 21 MG PATCH.TD24 TRANSDERMA (08:32)
[2022-04-14] MEDS: Bictegrav/Emtricit/Tenofov Ala TABLET 1 TAB PO (08:32)
[2022-04-14 11:28] LABS: Glucose, Whole Blood 130 mg/dL (60-115)
[2022-04-14] MEDS: Dextrose 5 % and 0.45 % NaCl 1,000 ML 200 ML IVCONT ×2 (13:56→17:50)
--- NOTE | 2022-04-14 14:08 | PM.PNNEP ---
Subjective Subjective Date of Service: 04/14/22 Interval history: Events noted. All recent data reviewed Physical Exam Vital Signs: Vital Signs: Last Vital Signs Temp 96.8 F 04/14/22 11:41 Pulse 70 04/14/22 11:41 Resp 17 04/14/22 11:41 BP 90/52 L 04/14/22 11:41 Pulse Ox 100 04/14/22 11:41 O2 Del Method 04/14/22 11:41 BMI result Body Mass Index 13.6 Const: General: no acute distress Eyes: EOM: EOMs intact bilaterally Resp: Auscultation: diminished lung sounds Cardio: Rate: regular rate GI: Palpation (GI): Soft to palpation Neuro: General: moves all extremities Objective Data Labs CBC & Chem 7: 04/13/22 18:52 04/13/22 18:52 Labs: Laboratory Results - last 24 hr 04/13/22 04/13/22 04/13/22 03:51 15:20 16:58 WBC RBC Hgb Hct MCV MCH MCHC RDW Plt Count MPV Absolute Nucleated RBC Nucleated RBC % (auto) VBG pH VBG pCO2 VBG pO2 VBG HCO3 VBG O2 Saturation VBG Base Excess Sodium Potassium Chloride Carbon Dioxide Anion Gap BUN Creatinine Estim Creat Clear Calc Estimated GFR POC Glucose 347 H 311 H Random Glucose Lactic Acid Calcium Phosphorus Magnesium Total Bilirubin AST ALT Alkaline Phosphatase Ammonia C-Reactive Protein Total Protein Albumin Procalcitonin Random Cortisol 16.3 Urine Color Urine Appearance Urine pH Ur Specific [place] Urine Protein Urine Glucose (UA) Urine Ketones Urine Blood Urine Nitrite Ur Leukocyte Esterase Urine RBC Urine WBC Ur Squamous Epith Cells Urine Bacteria Ur Random Sodium 04/13/22 04/13/22 04/13/22 18:17 18:17 18:51 WBC RBC Hgb Hct MCV MCH MCHC RDW Plt Count MPV Absolute Nucleated RBC Nucleated RBC % (auto) VBG pH VBG pCO2 VBG pO2 VBG HCO3 VBG O2 Saturation VBG Base Excess Sodium Potassium Chloride Carbon Dioxide Anion Gap BUN Creatinine Estim Creat Clear Calc Estimated GFR POC Glucose Random Glucose Lactic Acid 1.6 Calcium Phosphorus Magnesium Total Bilirubin AST ALT Alkaline Phosphatase Ammonia C-Reactive Protein Total Protein Albumin Procalcitonin Random Cortisol Urine Color YELLOW Urine Appearance CLEAR Urine pH 5.5 Ur Specific [place] 1.015 Urine Protein NEG Urine Glucose (UA) 100 H Urine Ketones NEG Urine Blood 2+ H Urine Nitrite POS H Ur Leukocyte Esterase 2+ H Urine RBC 10-14 H Urine WBC 30-49 H Ur Squamous Epith Cells NONE Urine Bacteria 4+ Ur Random Sodium < 20.0 04/13/22 04/13/22 04/13/22 18:51 18:52 18:52 WBC 4.6 L RBC 3.30 L Hgb 9.7 L Hct 29.9 L MCV 90.6 MCH 29.4 MCHC 32.4 RDW 18.7 H Plt Count 65 L MPV 11.0 Absolute Nucleated RBC 0.000 Nucleated RBC % (auto) 0.0 VBG pH VBG pCO2 VBG pO2 VBG HCO3 VBG O2 Saturation VBG Base Excess Sodium Potassium Chloride Carbon Dioxide Anion Gap BUN Creatinine Estim Creat Clear Calc Estimated GFR POC Glucose Random Glucose Lactic Acid Calcium Phosphorus 3.5 Magnesium 2.2 Total Bilirubin AST ALT Alkaline Phosphatase Ammonia 28 C-Reactive Protein 3.91 H Total Protein Albumin Procalcitonin Random Cortisol Urine Color Urine Appearance Urine pH Ur Specific [place] Urine Protein Urine Glucose (UA) Urine Ketones Urine Blood Urine Nitrite Ur Leukocyte Esterase Urine RBC Urine WBC Ur Squamous Epith Cells Urine Bacteria Ur Random Sodium 04/13/22 04/13/22 04/13/22 18:52 18:52 18:57 WBC RBC Hgb Hct MCV MCH MCHC RDW Plt Count MPV Absolute Nucleated RBC Nucleated RBC % (auto) VBG pH 7.46 H VBG pCO2 21 VBG pO2 71 VBG HCO3 15 L VBG O2 Saturation 94.0 VBG Base Excess -6.7 Sodium 145 Potassium 4.9 Chloride 121 H Carbon Dioxide 17 L Anion Gap 12 BUN 91 H Creatinine 1.95 H Estim Creat Clear Calc 23.0 Estimated GFR 36 POC Glucose Random Glucose 313 H D Lactic Acid Calcium 8.5 D Phosphorus Magnesium Total Bilirubin 0.5 AST 13 D ALT 8 Alkaline Phosphatase 71 Ammonia C-Reactive Protein Total Protein 7.3 D Albumin 2.4 L D Procalcitonin 1.23 Random Cortisol Urine Color Urine Appearance Urine pH Ur Specific [place] Urine Protein Urine Glucose (UA) Urine Ketones Urine Blood Urine Nitrite Ur Leukocyte Esterase Urine RBC Urine WBC Ur Squamous Epith Cells Urine Bacteria Ur Random Sodium 04/13/22 04/14/22 04/14/22 21:32 08:08 11:24 WBC RBC Hgb Hct MCV MCH MCHC RDW Plt Count MPV Absolute Nucleated RBC Nucleated RBC % (auto) VBG pH VBG pCO2 VBG pO2 VBG HCO3 VBG O2 Saturation VBG Base Excess Sodium Potassium Chloride Carbon Dioxide Anion Gap BUN Creatinine Estim Creat Clear Calc Estimated GFR POC Glucose 167 H 168 H 130 H Random Glucose Lactic Acid Calcium Phosphorus Magnesium Total Bilirubin AST ALT Alkaline Phosphatase Ammonia C-Reactive Protein Total Protein Albumin Procalcitonin Random Cortisol Urine Color Urine Appearance Urine pH Ur Specific [place] Urine Protein Urine Glucose (UA) Urine Ketones Urine Blood Urine Nitrite Ur Leukocyte Esterase Urine RBC Urine WBC Ur Squamous Epith Cells Urine Bacteria Ur Random Sodium Microbiology Microbiology Results: Microbiology 04/13/22 03:51 Blood - Venous Blood Culture - Preliminary No growth after 24 hours. 04/13/22 03:51 Blood - Venous Blood Culture - Preliminary No growth after 24 hours. 04/10/22 20:00 Urine clean catch - Urine hardin top Urine Culture - Final Procedures Date of Service Date of Service: 04/14/22 Assessment & Plan Assessment and plan (1) Acute kidney injury: Status: Acute Assessment and Plan: KATHERINE due to tubular injury ; Serum creatinine stable on PO Bicarb ; C/W rest of current supportive care Time Spent With Patient Time: Total time spent is greater than 50% in coordination of care (as documented) at patient's floor/unit and/or counseling patient: Progress Note: Quality Stroke Does the patient have a stroke diagnosis?: No
[2022-04-14 16:03] LABS: Glucose, Whole Blood 216 mg/dL (60-115)
--- NOTE | 2022-04-14 16:17 | MHC.CM.PN ---
CM MET W/PT TO DISCUSS DISPO, PT IS A&O, PT REPORTS HE DOES WANT LTC AND DOES NOT HAVE PREFERENCES OTHER THAN CLOSE TO HOME, PT HAS BEEN COMPLIANT W/MEDS TODAY, PT REPORTS HE IS WILLING TO COMPLETE A HCP AND IS OKAY W/HIS BROTHER ELIEZER BEING HIS HCA HOWEVER PT ONLY KNOWS HIS NAME AND DOES NOT KNOW WHERE HE LIVES/WORKS OR PHONE NUMBER, CM WILL CONT TO FOLLOW.
[2022-04-14 20:38] LABS: Glucose, Whole Blood 236 mg/dL (60-115)
[2022-04-14] MEDS: HYDROmorphone HCl 0.5 MG/0.5 ML SYRINGE 0.25 MG IVPUSH (22:35)
--- NOTE | 2022-04-14 23:45 | PM.IDPN ---
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 04/13/22 03:51 Blood - Venous Blood Culture - Preliminary No growth after 24 hours. 04/10/22 20:00 Urine clean catch - Urine hardin top Urine Culture - Final Physical Exam Vital Signs: Vital Signs: Last Vital Signs Temp 95.2 F L 04/14/22 22:04 Pulse 76 04/14/22 22:04 Resp 18 04/14/22 22:35 BP 110/67 04/14/22 22:04 Pulse Ox 100 04/14/22 22:04 O2 Del Method 04/14/22 22:04 BMI result Body Mass Index 13.6 Const: General: cooperative Eyes: General: appearance normal, both eyes and all related structures Resp: Effort & Inspection: normal respiratory effort Cardio: Rate: regular rate Rhythm: regular rhythm GI: Palpation (GI): Soft to palpation and nontender Assessment and Plan Assessment and plan (1) AIDS: Problem details: 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
[2022-04-15] VITALS (10 sets, daily range): BP systolic 87–109; BP diastolic 50–65; PULSE 71–90; RESP 14–18; TEMP 35.7–37.1; O2SAT 98–100
[2022-04-15] MEDS: HYDROmorphone HCl 0.5 MG/0.5 ML SYRINGE 0.25 MG IVPUSH (02:13)
[2022-04-15] MEDS: Dextrose 5 % and 0.45 % NaCl 1,000 ML 200 ML IVCONT ×3 (02:20→13:29)
[2022-04-15 07:43] LABS: Glucose, Whole Blood 146 mg/dL (60-115)
--- NOTE | 2022-04-15 08:27 | MHC.CM.PN ---
[facility] UPDATED WITH CLINICALS CASE MANAGEMENT FOLLOWING
[2022-04-15] MEDS: Atovaquone 750 MG/5 ML ORAL.SUSP 1500 MG PO (08:40)
[2022-04-15] MEDS: Sodium Bicarbonate 650 MG TABLET PO ×3 (08:41→20:21)
[2022-04-15] MEDS: Bictegrav/Emtricit/Tenofov Ala TABLET 1 TAB PO (08:41)
[2022-04-15] MEDS: Nicotine 21 MG PATCH.TD24 TRANSDERMA (08:41)
--- NOTE | 2022-04-15 10:10 | P.PNIM_ITS ---
Subjective Subjective Date of Service: 04/15/22 Interval History: Seen in f/u for failure to thrive, KATHERINE, dehydration Interval history: He's more awake and alert today, BP remains low but appear low bed asymptomatic Review of Systems no fever emaciated Physical Exam Vital Signs: Vital Signs: Last Vital Signs Temp 97.2 F 04/15/22 08:00 Pulse 78 04/15/22 08:00 Resp 17 04/15/22 08:00 BP 87/52 L 04/15/22 08:00 Pulse Ox 100 04/15/22 08:00 O2 Del Method 04/15/22 08:00 BMI result Body Mass Index 13.6 Const: Other: General: calm, no agitation, very messy aided and gaunt Resp: CTA bilateral CVS: S1,S2,RRR GI: +BS, NT, no distention Skin: No rash Neuro: motor grossly intact Psych: flat affect Objective Data Active Medications Acetaminophen (Acetaminophen 325 Mg Tablet) 650 mg PO Q6H PRN PRN Reason: Pain, Mild (Pain Scale 1-3) Atovaquone (Atovaquone 750 Mg/5 Ml Oral.Susp) 1,500 mg PO DAILY [facility] Last Admin: 04/15/22 08:40 Dose: 1,500 mg Documented By: JAIME-SOFFA Bictegravir/Emtricitabine/Tenofovir (Bictegrav/Emtricit/Tenofov Ala Tablet) 1 tab PO DAILY [facility] Last Admin: 04/15/22 08:41 Dose: 1 tab Documented By: JAIME-SOFFA Dextrose (Dextrose 50 % 25 Gm/50 Ml Syringe) 25 gm IVPUSH Q15M PRN; Protocol PRN Reason: per Hypoglycemia Standing Ord. Glucose (Glucose Gel 15 Gm Gel..Gram.) 15 gm PO Q15M PRN; Protocol PRN Reason: per Hypoglycemia Standing Ord. Hydromorphone HCl (Hydromorphone Hcl 0.5 Mg/0.5 Ml Syringe) 0.25 mg IVPUSH Q2H PRN; Protocol PRN Reason: Pain, Moderate (Pain Scale 4-6 Last Admin: 04/15/22 02:13 Dose: 0.25 mg Documented By: BILLIE Dextrose/Sodium Chloride (D51/2ns) 1,000 mls @ 200 mls/hr IVCONT .Q5H [facility] Last Admin: 04/15/22 08:40 Dose: 200 mls/hr Documented By: JAIME-SOFFA Trimethoprim/Sulfamethoxazole (100 mg/ Dextrose) 506.25 mls @ 225 mls/hr IV Q12H [facility] Last Infusion: 04/15/22 08:53 Dose: 0 mls/hr Documented By: JAIME-SOFFA Insulin Human Lispro (Insulin Lispro 100 Unit/Ml 3 Ml Vial) 0 unit SUBCUT QIDACHS [facility]; Protocol Last Admin: 04/15/22 07:55 Dose: Not Given Documented By: JAIME-SOFMICHELLE Non-Admin Reason: poc oor Nicotine (Nicotine 21 Mg Patch.Td24) 21 mg TRANSDERMA DAILY [facility] Last Admin: 04/15/22 08:41 Dose: 21 mg Documented By: JAIME-SOFFA Ondansetron HCl (Ondansetron Hcl 4 Mg/2 Ml Vial) 4 mg IVPUSH Q8H PRN PRN Reason: Nausea and Vomiting Pharmacy Consult (Consult Rx Perform Med Rec) 1 each MISCELLANE ONCE PRN PRN Reason: Consult order Sodium Bicarbonate (Sodium Bicarbonate 650 Mg Tablet) 650 mg PO TID [facility] Last Admin: 04/15/22 08:41 Dose: 650 mg Documented By: JAIME-JOSE RAUL Sodium Chloride (0.9 % Sodium Chloride Flush 3 Ml Syringe) 3 ml IVFLUSH QSHIFT [facility] Last Admin: 04/15/22 07:33 Dose: Not Given Documented By: JAIME-SOFFA Non-Admin Reason: assessed Labs CBC & Chem 7: 04/13/22 18:52 04/13/22 18:52 Labs: Laboratory Results - last 24 hr 04/14/22 04/14/22 04/14/22 11:24 15:49 19:30 POC Glucose 130 H 216 H 236 H 04/15/22 07:18 POC Glucose 146 H Microbiology Microbiology Results: Microbiology 04/13/22 03:51 Blood Culture - Preliminary Blood - Venous No growth after 48 hours. 04/13/22 03:51 Blood Culture - Preliminary Blood - Venous No growth after 48 hours. Assessment and Plan (1) Adult failure to thrive: Status: Acute (2) Acute kidney injury: Status: Acute (3) Acute dehydration: Status: Acute (4) AIDS: Status: Acute Plan A 56-year-old male with a past medical history of HIV come presents to the hospital after a neighbor was concerned that the patient was not taking care of himself, the patient was found to be significantly dehydrated--Clincal presentation consitent with advanced AIDS #? KATHERINE--likely d/t prerenal state, improving -? likely secondary to dehydration -? continue IVF and monitoring BMP, renal consult -Cr seem to be plateauing around 1.9, recheck today #? Acute Dehydration--IV water replacement #? Adult failure to thrive #Severe protein calory malnutrition -? likely in the setting of HIV, history of hep C infection as well? as IV drug use -? care team consulted -? will need case management -? 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 Not due to sepsis, DC Abx #DM -SSI - diabetic diet DVT ppx: heparin sub Need for inpatient: management with KATHERINE, hypernatremia with IVF,? 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
[2022-04-15 10:57] LABS: Creatinine Clr Calc Pharmacy 28.2; Estimated Glomerular Filt Rate 45; Glucose Random 207 mg/dL (60-115)
[2022-04-15 11:11] LABS: Anion Gap 9 (12-20); Blood Urea Nitrogen 44 mg/dL (9-16); Calcium 7.7 mg/dL (8.4-10.2); Carbon Dioxide 19 mmol/L (22-29); Chloride 116 mmol/L (96-108); Potassium 3.8 mmol/L (3.3-5.1); Sodium 140 mmol/L (135-145)
[2022-04-15 11:15] LABS: Glucose, Whole Blood 185 mg/dL (60-115)
[2022-04-15] MEDS: Insulin Lispro 100 UNIT/ML 3 ML VIAL SUBCUT (11:18)
--- NOTE | 2022-04-15 13:51 | PM.PNNEP ---
Subjective Subjective Date of Service: 04/15/22 Interval history: More awake and alert today, BP remains low Physical Exam Vital Signs: Vital Signs: Last Vital Signs Temp 96.3 F L 04/15/22 11:04 Pulse 80 04/15/22 11:04 Resp 14 04/15/22 11:04 BP 94/61 04/15/22 11:04 Pulse Ox 100 04/15/22 11:04 O2 Del Method 04/15/22 11:04 BMI result Body Mass Index 13.6 Const: General: no acute distress Neck: Neck: Yes no JVD Resp: Auscultation: diminished lung sounds Cardio: Rate: regular rate GI: Palpation (GI): Soft to palpation Neuro: General: moves all extremities Objective Data Labs CBC & Chem 7: 04/13/22 18:52 04/15/22 10:22 Labs: Laboratory Results - last 24 hr 04/14/22 04/14/22 04/15/22 15:49 19:30 07:18 Sodium Potassium Chloride Carbon Dioxide Anion Gap BUN Creatinine Estim Creat Clear Calc Estimated GFR POC Glucose 216 H 236 H 146 H Random Glucose Calcium 04/15/22 04/15/22 10:22 11:06 Sodium 140 Potassium 3.8 D Chloride 116 H Carbon Dioxide 19 L Anion Gap 9 L BUN 44 H D Creatinine 1.59 H Estim Creat Clear Calc 28.2 Estimated GFR 45 POC Glucose 185 H Random Glucose 207 H Calcium 7.7 L D Microbiology Microbiology Results: Microbiology 04/13/22 03:51 Blood - Venous Blood Culture - Preliminary No growth after 48 hours. 04/13/22 03:51 Blood - Venous Blood Culture - Preliminary No growth after 48 hours. 04/10/22 20:00 Urine clean catch - Urine hardin top Urine Culture - Final Procedures Date of Service Date of Service: 04/15/22 Assessment & Plan Assessment and plan (1) Acute kidney injury: Status: Acute Assessment and Plan: KATHERINE due to tubular injury ; Serum creatinine better on PO Bicarb ; May need 0.1 mg of Florinef C/W rest of current supportive care Time Spent With Patient Time: Total time spent is greater than 50% in coordination of care (as documented) at patient's floor/unit and/or counseling patient: Progress Note: Quality Stroke Does the patient have a stroke diagnosis?: No
--- NOTE | 2022-04-15 14:30 | PC.NURSE ---
Pt bathed this shift. pt is a 1:1 feed, encouraged to eat and drink fluids. poc maintained. camera in room. pt takes pills crushed in apple sauce. fluids maintained as ordered. pt is able to speak and understand american. safety and fall precautions in place. call pedersen within reach.
[2022-04-15] MEDS: Midodrine HCl 5 MG TABLET PO ×2 (16:47→20:21)
[2022-04-15 17:40] LABS: Glucose, Whole Blood 116 mg/dL (60-115)
[2022-04-15 20:54] LABS: Glucose, Whole Blood 130 mg/dL (60-115)
[2022-04-16 03:29] VITALS: BP 95/53; PULSE 65; RESP 18; TEMP 36.1; O2SAT 100
[2022-04-16 06:42] LABS: Anion Gap 8 (12-20); Blood Urea Nitrogen 28 mg/dL (9-16); Calcium 7.5 mg/dL (8.4-10.2); Carbon Dioxide 19 mmol/L (22-29); Chloride 116 mmol/L (96-108); Creatinine Clr Calc Pharmacy 33.7; Estimated Glomerular Filt Rate 55; Glucose Random 100 mg/dL (60-115); Potassium 4.3 mmol/L (3.3-5.1); Sodium 139 mmol/L (135-145)
[2022-04-16 07:03] VITALS: BP 105/61; PULSE 71; RESP 16; TEMP 36; O2SAT 100
[2022-04-16 07:16] LABS: Glucose, Whole Blood 107 mg/dL (60-115)
[2022-04-16] MEDS: Nicotine 21 MG PATCH.TD24 TRANSDERMA (08:18)
[2022-04-16] MEDS: Bictegrav/Emtricit/Tenofov Ala TABLET 1 TAB PO (08:18)
[2022-04-16] MEDS: Midodrine HCl 5 MG TABLET PO ×3 (08:18→20:27)
[2022-04-16] MEDS: Atovaquone 750 MG/5 ML ORAL.SUSP 1500 MG PO (08:18)
[2022-04-16] MEDS: Sodium Bicarbonate 650 MG TABLET PO ×3 (08:18→20:26)
--- NOTE | 2022-04-16 09:55 | P.PNIM_ITS ---
Subjective Subjective Date of Service: 04/16/22 Interval History: Seen in f/u for failure to thrive, KATHERINE, dehydration Interval history:He's doing better, BP is better, renal failure is resolved Review of Systems no fever emaciated Physical Exam Vital Signs: Vital Signs: Last Vital Signs Temp 96.8 F 04/16/22 07:03 Pulse 71 04/16/22 07:03 Resp 16 04/16/22 07:03 BP 105/61 04/16/22 07:03 Pulse Ox 100 04/16/22 07:03 O2 Del Method 04/16/22 07:03 BMI result Body Mass Index 13.6 Const: Other: General: calm, no agitation, very messy aided and gaunt Resp: CTA bilateral CVS: S1,S2,RRR GI: +BS, NT, no distention Skin: No rash Neuro: motor grossly intact Psych: flat affect Objective Data Active Medications Acetaminophen (Acetaminophen 325 Mg Tablet) 650 mg PO Q6H PRN PRN Reason: Pain, Mild (Pain Scale 1-3) Atovaquone (Atovaquone 750 Mg/5 Ml Oral.Susp) 1,500 mg PO DAILY [facility] Last Admin: 04/16/22 08:18 Dose: 1,500 mg Documented By: JOANN Bictegravir/Emtricitabine/Tenofovir (Bictegrav/Emtricit/Tenofov Ala Tablet) 1 tab PO DAILY [facility] Last Admin: 04/16/22 08:18 Dose: 1 tab Documented By: JOANN Dextrose (Dextrose 50 % 25 Gm/50 Ml Syringe) 25 gm IVPUSH Q15M PRN; Protocol PRN Reason: per Hypoglycemia Standing Ord. Glucose (Glucose Gel 15 Gm Gel..Gram.) 15 gm PO Q15M PRN; Protocol PRN Reason: per Hypoglycemia Standing Ord. Hydromorphone HCl (Hydromorphone Hcl 0.5 Mg/0.5 Ml Syringe) 0.25 mg IVPUSH Q2H PRN; Protocol PRN Reason: Pain, Moderate (Pain Scale 4-6 Last Admin: 04/15/22 02:13 Dose: 0.25 mg Documented By: CORINNEUMCHILANGO Trimethoprim/Sulfamethoxazole (100 mg/ Dextrose) 506.25 mls @ 225 mls/hr IV Q12H [facility] Last Infusion: 04/16/22 07:21 Dose: 225 mls/hr Documented By: JOANN Insulin Human Lispro (Insulin Lispro 100 Unit/Ml 3 Ml Vial) 0 unit SUBCUT QIDACHS [facility]; Protocol Last Admin: 04/16/22 08:14 Dose: Not Given Documented By: JOANN Non-Admin Reason: No Insulin Coverage Midodrine (Midodrine Hcl 5 Mg Tablet) 5 mg PO TID [facility] Last Admin: 04/16/22 08:18 Dose: 5 mg Documented By: JOANN Nicotine (Nicotine 21 Mg Patch.Td24) 21 mg TRANSDERMA DAILY [facility] Last Admin: 04/16/22 08:18 Dose: 21 mg Documented By: JOANN Ondansetron HCl (Ondansetron Hcl 4 Mg/2 Ml Vial) 4 mg IVPUSH Q8H PRN PRN Reason: Nausea and Vomiting Pharmacy Consult (Consult Rx Perform Med Rec) 1 each MISCELLANE ONCE PRN PRN Reason: Consult order Sodium Bicarbonate (Sodium Bicarbonate 650 Mg Tablet) 650 mg PO TID [facility] Last Admin: 04/16/22 08:18 Dose: 650 mg Documented By: JOANN Sodium Chloride (0.9 % Sodium Chloride Flush 3 Ml Syringe) 3 ml IVFLUSH QSHIFT [facility] Last Admin: 04/16/22 08:14 Dose: Not Given Documented By: JOANN Non-Admin Reason: IV Running Labs CBC & Chem 7: 04/13/22 18:52 04/16/22 06:05 Labs: Laboratory Results - last 24 hr 04/15/22 04/15/22 04/15/22 10:22 11:06 17:35 Anion Gap 9 L Estim Creat Clear Calc 28.2 Estimated GFR 45 POC Glucose 185 H 116 H Random Glucose 207 H Calcium 7.7 L D 04/15/22 04/16/22 04/16/22 19:53 06:05 07:06 Anion Gap 8 L Estim Creat Clear Calc 33.7 Estimated GFR 55 POC Glucose 130 H 107 Random Glucose 100 D Calcium 7.5 L Microbiology Microbiology Results: Microbiology 04/13/22 03:51 Blood Culture - Preliminary Blood - Venous No growth after 48 hours. 04/13/22 03:51 Blood Culture - Preliminary Blood - Venous No growth after 48 hours. Assessment and Plan (1) Adult failure to thrive: Status: Acute (2) Acute kidney injury: Status: Acute (3) Acute dehydration: Status: Acute (4) AIDS: Status: Acute Plan A 56-year-old male with a past medical history of HIV come presents to the hospital after a neighbor was concerned that the patient was not taking care of himself, the patient was found to be significantly dehydrated--Clincal presentation consitent with advanced AIDS #? KATHERINE--likely d/t prerenal state, improving -? likely secondary to dehydration -? continue IVF and monitoring BMP, renal consult -Cr seem to be plateauing around 1.9, recheck today #? Acute Dehydration--IV water replacement #? Adult failure to thrive #Severe protein calory malnutrition -? likely in the setting of HIV, history of hep C infection as well? as IV drug use -? care team consulted -? will need case management -? 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 Not due to sepsis, DC Abx #DM -SSI - diabetic diet DVT ppx: heparin sub Need for inpatient: management with KATHERINE, hypernatremia with IVF,? CM working on safe dispo Quality Stroke Does the patient have a stroke diagnosis?: No VTE Prior VTE?: No VTE Risk Level:: Medical - moderate - high VTE Device Contraindication: Treatment Not Indicated VTE Drug Contraindication: N/A - Med Ordered
[2022-04-16 11:13] VITALS: BP 120/79; PULSE 81; RESP 20; TEMP 36.5; O2SAT 100
[2022-04-16 11:27] LABS: Glucose, Whole Blood 122 mg/dL (60-115)
--- NOTE | 2022-04-16 13:04 | MHC.CLN ---
F/U PT IS SEVERELY MALNOURISHED. RECEIVING IV FLUIDS. DIET=REGULAR WITH ENSURE TID (1050 KCALS, 60 G PROTEIN). PER STAFF, ATE 75% OF BREAKFAST (COLD CEREAL AND 2 JUICES). DID NOT DRINK ENSURE THIS AM. HX CHRONIC POOR PO INTAKE PUTTING PATIENT AT RISK OF REFEEDING. FOLLOW FOR INTAKE AND CONSIDER ALTERNATE NUTRITION IF DEEMED APPROPRIATE.
[2022-04-16] MEDS: HYDROmorphone HCl 0.5 MG/0.5 ML SYRINGE 0.25 MG IVPUSH (14:52)
--- NOTE | 2022-04-16 14:53 | MHC.CM.PN ---
PER HOSPITALIST PT SLOWLY IMPROVING, PT WILL NEED PLACEMENT FOR STR/LTC, PT WOULD LIKE TO LTC PLACEMENT.
[2022-04-16] MEDS: 0.9 % Sodium Chloride Flush 3 ML SYRINGE IVFLUSH (15:47)
--- NOTE | 2022-04-16 15:50 | PC.NURSE ---
BEY CATH REMOVED AT 0830. INC OF URINE AT APPROX 1100. PT CONSTANTLY C/O NEED TO URINATE. AMB WITH ASSIST TO BR. AND ATTEMPTED TO USE URINAL FREQUENTLY. ALSO NOTED TO HAVE PARAPHIMOSIS. DR CHAN MADE AWARE. BLADDER SCANNED FOR GREATER THEN 525. ATTEMPTED TO INSERT 16FR BEY AND WAS UNABLE. HOWEVER BEY WAS PLACED BY 3-11 SHIFT RN
[2022-04-16 16:00] VITALS: BP 93/56; PULSE 65; RESP 17; TEMP 36.1; O2SAT 100
[2022-04-16 17:13] LABS: Glucose, Whole Blood 105 mg/dL (60-115)
--- NOTE | 2022-04-16 17:24 | PM.PNNEP ---
Subjective Subjective Date of Service: 04/16/22 Interval history: BP improved. KATHERINE resolved. Physical Exam Vital Signs: Vital Signs: Last Vital Signs Temp 97 F 04/16/22 16:00 Pulse 65 04/16/22 16:00 Resp 17 04/16/22 16:00 BP 93/56 L 04/16/22 16:00 Pulse Ox 100 04/16/22 16:00 O2 Del Method 04/16/22 16:00 BMI result Body Mass Index 13.6 Const: General: cooperative and no acute distress HEENT: Head: Yes normocephalic and Yes atraumatic Neck: Neck: Yes no JVD Resp: Auscultation: clear to auscultation bilaterally Cardio: Jugular venous distension: no JVD Rate: regular rate Rhythm: regular rhythm Heart sounds: S1 normal heart sound present and S2 normal heart sound present GI: Auscultation: normal bowel sounds Neuro: General: moves all extremities and no focal motor deficits Extrem: General: Yes no clubbing, cyanosis or edema Objective Data Labs CBC & Chem 7: 04/13/22 18:52 04/16/22 06:05 Labs: Laboratory Results - last 24 hr 04/15/22 04/15/22 04/16/22 17:35 19:53 06:05 Sodium 139 Potassium 4.3 Chloride 116 H Carbon Dioxide 19 L Anion Gap 8 L BUN 28 H Creatinine 1.33 Estim Creat Clear Calc 33.7 Estimated GFR 55 POC Glucose 116 H 130 H Random Glucose 100 D Calcium 7.5 L 04/16/22 04/16/22 04/16/22 07:06 11:13 17:05 Sodium Potassium Chloride Carbon Dioxide Anion Gap BUN Creatinine Estim Creat Clear Calc Estimated GFR POC Glucose 107 122 H 105 Random Glucose Calcium Microbiology Microbiology Results: Microbiology 04/13/22 03:51 Blood - Venous Blood Culture - Preliminary No growth after 48 hours. 04/13/22 03:51 Blood - Venous Blood Culture - Preliminary No growth after 48 hours. 04/10/22 20:00 Urine clean catch - Urine hardin top Urine Culture - Final Procedures Date of Service Date of Service: 04/16/22 Assessment & Plan Assessment and plan (1) Acute kidney injury: Status: Acute Assessment and Plan: KATHERINE due to tubular injury and dehydration. Serum creatinine better on PO Bicarb ; May need 0.1 mg of Florinef but we can hold for now as bp improved. C/W rest of current supportive care (2) Adult failure to thrive: Status: Acute Time Spent With Patient Time: Total time spent is greater than 50% in coordination of care (as documented) at patient's floor/unit and/or counseling patient: Progress Note: Quality Stroke Does the patient have a stroke diagnosis?: No
[2022-04-16 19:25] VITALS: BP 98/62; PULSE 82; RESP 18; TEMP 36.2; O2SAT 100
[2022-04-16 20:08] LABS: Glucose, Whole Blood 192 mg/dL (60-115)
[2022-04-16] MEDS: Insulin Lispro 100 UNIT/ML 3 ML VIAL SUBCUT (20:26)
[2022-04-16 23:38] VITALS: BP 95/60; PULSE 70; RESP 17; TEMP 36.4; O2SAT 100
[2022-04-17] VITALS (7 sets, daily range): BP systolic 86–111; BP diastolic 48–66; PULSE 63–79; RESP 14–18; TEMP 36–36.7; O2SAT 100
[2022-04-17] MEDS: 0.9 % Sodium Chloride Flush 3 ML SYRINGE IVFLUSH ×2 (00:39→17:40)
--- NOTE | 2022-04-17 06:46 | PC.NURSE ---
Pharmacy assisted for am dose mix of patients am iv Bactrim, also dose hung somewhat late as per pharmacist due to previous dose ran behind time scheduled.
[2022-04-17] MEDS: Nicotine 21 MG PATCH.TD24 TRANSDERMA (07:39)
[2022-04-17] MEDS: Atovaquone 750 MG/5 ML ORAL.SUSP 1500 MG PO (07:40)
[2022-04-17] MEDS: Bictegrav/Emtricit/Tenofov Ala TABLET 1 TAB PO (07:41)
[2022-04-17] MEDS: Sodium Bicarbonate 650 MG TABLET PO ×3 (07:41→21:58)
[2022-04-17] MEDS: Midodrine HCl 5 MG TABLET PO ×3 (07:42→21:58)
[2022-04-17 07:43] LABS: Glucose, Whole Blood 96 mg/dL (60-115)
--- NOTE | 2022-04-17 09:15 | P.CNUR_ITS ---
History of Present Illness Consult details Consult date: 04/17/22 Narrative: Consultation urinary incontinence 56-year-old male Admitted for acute on chronic renal failure and dehydration Vera catheter placed for 400 cc Reports incontinence prior to admission Chronic therapy for HIV, hep C and diabetes Known opiate user Creatinine falling from 3.0-1.4 May perform voiding trial in hospital Review of Systems Constitutional: Constitutional: Reports as per HPI and Reports no additional constitutional complaints Cardiovascular: Cardiovascular: Reports as per HPI and Reports no additional cardiovascular complaints Respiratory: Respiratory: Reports as per HPI and Reports no additional respiratory complaints Gastrointestinal: Gastrointestinal: Reports as per HPI and Reports no additional gastrointestinal complaints Genitourinary: Genitourinary: Reports as per HPI Musculoskeletal: Musculoskeletal: Reports no additional musculoskeletal complaints and Reports as per HPI Neurologic: Reports system reviewed and no additional complaints, except as documented and Reports as per HPI PMFSH Past Medical History Medical History Anxiety Depression Diabetes Drug abuse Hepatitis C HIV (human immunodeficiency virus infection) HTN (hypertension) MSSA bacteremia Family History Family History Father Alcoholism Mother Type 2 diabetes mellitus Sister No problems noted. Sister No problems noted. Brother No problems noted. Son No problems noted. Family history: reviewed and not pertinent Surgical History Surgical History History of repair of laceration Social History Social History Household Members: None Housing: Apartment Do you presently have visiting nurse or other home services: No Alcohol intake: current Alcohol intake frequency: holidays/special occasions only Patient Tobacco Use Status: Current everyday Tobacco user Cigarette Packs Per Day: 1 Cigarettes Per Day: 20.0 Years Smoked: 23 Second Hand Smoke Exposure: No Substance Use Type: Heroin service: No Current occupational status: unemployed Meds Allergies Allergy/AdvReac Type Severity Reaction Status Date / Time Sulfa (Sulfonamide Allergy Mild RASH Verified 11/02/20 10:47 Antibiotics) [Sulfa (Sulfonamides)] Active Medications: Current Medications Acetaminophen (Acetaminophen 325 Mg Tablet) 650 mg PO Q6H PRN PRN Reason: Pain, Mild (Pain Scale 1-3) Atovaquone (Atovaquone 750 Mg/5 Ml Oral.Susp) 1,500 mg PO DAILY [facility] Last Admin: 04/17/22 07:40 Dose: 1,500 mg Bictegravir/Emtricitabine/Tenofovir (Bictegrav/Emtricit/Tenofov Ala Tablet) 1 tab PO DAILY [facility] Last Admin: 04/17/22 07:41 Dose: 1 tab Dextrose (Dextrose 50 % 25 Gm/50 Ml Syringe) 25 gm IVPUSH Q15M PRN; Protocol PRN Reason: per Hypoglycemia Standing Ord. Glucose (Glucose Gel 15 Gm Gel..Gram.) 15 gm PO Q15M PRN; Protocol PRN Reason: per Hypoglycemia Standing Ord. Hydromorphone HCl (Hydromorphone Hcl 0.5 Mg/0.5 Ml Syringe) 0.25 mg IVPUSH Q2H PRN; Protocol PRN Reason: Pain, Moderate (Pain Scale 4-6 Last Admin: 04/16/22 14:52 Dose: 0.25 mg Trimethoprim/Sulfamethoxazole (100 mg/ Dextrose) 506.25 mls @ 225 mls/hr IV Q12H [facility] Last Infusion: 04/17/22 09:11 Dose: Infused Insulin Human Lispro (Insulin Lispro 100 Unit/Ml 3 Ml Vial) 0 unit SUBCUT QIDACHS [facility]; Protocol Last Admin: 04/17/22 07:32 Dose: Not Given Midodrine (Midodrine Hcl 5 Mg Tablet) 5 mg PO TID [facility] Last Admin: 04/17/22 07:42 Dose: 5 mg Nicotine (Nicotine 21 Mg Patch.Td24) 21 mg TRANSDERMA DAILY [facility] Last Admin: 04/17/22 07:39 Dose: 21 mg Ondansetron HCl (Ondansetron Hcl 4 Mg/2 Ml Vial) 4 mg IVPUSH Q8H PRN PRN Reason: Nausea and Vomiting Pharmacy Consult (Consult Rx Perform Med Rec) 1 each MISCELLANE ONCE PRN PRN Reason: Consult order Sodium Bicarbonate (Sodium Bicarbonate 650 Mg Tablet) 650 mg PO TID [facility] Last Admin: 04/17/22 07:41 Dose: 650 mg Sodium Chloride (0.9 % Sodium Chloride Flush 3 Ml Syringe) 3 ml IVFLUSH QSHIFT [facility] Last Admin: 04/17/22 07:43 Dose: Not Given Home Medications Medication Instructions Recorded Confirmed Last Taken Type albuterol sulfate 90 mcg/actuation 2 puff PO Q4-6H PRN Wheezing 04/08/22 04/08/22 Unknown History aerosol inhaler (Ventolin HFA) bictegravir 50 mg-emtricitabine 1 tab PO DAILY 04/08/22 04/08/22 Unknown History 200 mg-tenofovir alafenam 25 mg tablet (Biktarvy) fluticasone propionate 44 2 puff PO BID 04/08/22 04/08/22 Unknown History mcg/actuation HFA aerosol inhaler (Flovent HFA) insulin glargine 100 unit/mL 18 unit subcut BEDTIME 04/08/22 04/08/22 Unknown History subcutaneous solution (Lantus U-100 Insulin) metformin 850 mg tablet 1 tab PO BID 04/08/22 04/08/22 Unknown History Physical Exam Vital Signs: Vital Signs: Last Vital Signs Temp 97.4 F 04/17/22 07:05 Pulse 70 04/17/22 07:05 Resp 16 04/17/22 07:05 BP 90/58 L 04/17/22 07:05 Pulse Ox 100 04/17/22 07:05 O2 Del Method 04/17/22 07:05 BMI result Body Mass Index 13.6 Const: General: cooperative, healthy appearing, comfortable and no acute distress Orientation/consciousness: patient oriented x3 HEENT: Face and sinus: Yes normal facial exam Mouth: moist mucous membranes Neck: Neck: Yes normal visual inspection, Yes full ROM and Yes trachea midline Chest: Chest palpation & inspection: normal inspection of the chest Resp: Effort & Inspection: normal respiratory effort, able to speak in complete sentences and no respiratory distress GI: Inspection: Yes normal to inspection Back/Spine/Pelvis: Cervical Spine: normal cervical lordosis Thoracic/Lumbar Spine: thoracic and lumbar spine normal to inspection Skin: General skin exam: no rashes or lesions noted Neuro: General: patient oriented x3, tone normal and moves all extremities Extrem: General: Yes normal to inspection and Yes capillary refill normal Results Labs Result diagrams: 04/13/22 18:52 04/17/22 12:52 Labs: Abnormal lab results 04/16/22 04/16/22 Range/Units 11:13 19:29 POC Glucose 122 H 192 H (60-115) mg/dL Urine 04/10/22 04/13/22 Range/Units 20:00 18:17 Urine Color YELLOW YELLOW Urine Appearance CLEAR CLEAR Urine pH 5.5 5.5 (5.0-8.0) Ur Specific Winston 1.010 1.015 (1.005-1.025) Urine Protein TRACE NEG (NEG-TRACE) MG/DL Urine Glucose (UA) NEG 100 H (NEG) MG/DL All other labs normal. Assessment and Plan (1) Urinary retention with incomplete bladder emptying: Status: Acute Plan Start alpha-richard for retention Urinary trial once on alpha-richard 48 hours Procedures Date of Service Date of Service: 04/17/22
--- NOTE | 2022-04-17 09:32 | HO.PM.IMPN ---
Subjective Subjective Date of Service: 04/17/22 Interval History: Seen in f/u for failure to thrive, KATHERINE, dehydration Interval history:No major change today, BP is marginal, no sob, nutritional status is poor Review of Systems no fever emaciated Physical Exam Vital Signs: Vital Signs: Last Vital Signs Temp 97.4 F 04/17/22 07:05 Pulse 70 04/17/22 07:05 Resp 16 04/17/22 07:05 BP 90/58 L 04/17/22 07:05 Pulse Ox 100 04/17/22 07:05 O2 Del Method 04/17/22 07:05 BMI result Body Mass Index 13.6 Const: Other: General: calm, no agitation, very messy aided and gaunt Resp: CTA bilateral CVS: S1,S2,RRR GI: +BS, NT, no distention Skin: No rash Neuro: motor grossly intact Psych: flat affect Objective Data Active Medications Acetaminophen (Acetaminophen 325 Mg Tablet) 650 mg PO Q6H PRN PRN Reason: Pain, Mild (Pain Scale 1-3) Atovaquone (Atovaquone 750 Mg/5 Ml Oral.Susp) 1,500 mg PO DAILY [facility] Last Admin: 04/17/22 07:40 Dose: 1,500 mg Documented By: OLGA Bictegravir/Emtricitabine/Tenofovir (Bictegrav/Emtricit/Tenofov Ala Tablet) 1 tab PO DAILY [facility] Last Admin: 04/17/22 07:41 Dose: 1 tab Documented By: OLGA Dextrose (Dextrose 50 % 25 Gm/50 Ml Syringe) 25 gm IVPUSH Q15M PRN; Protocol PRN Reason: per Hypoglycemia Standing Ord. Glucose (Glucose Gel 15 Gm Gel..Gram.) 15 gm PO Q15M PRN; Protocol PRN Reason: per Hypoglycemia Standing Ord. Hydromorphone HCl (Hydromorphone Hcl 0.5 Mg/0.5 Ml Syringe) 0.25 mg IVPUSH Q2H PRN; Protocol PRN Reason: Pain, Moderate (Pain Scale 4-6 Last Admin: 04/16/22 14:52 Dose: 0.25 mg Documented By: JOANN Trimethoprim/Sulfamethoxazole (100 mg/ Dextrose) 506.25 mls @ 225 mls/hr IV Q12H [facility] Last Infusion: 04/17/22 09:11 Dose: 0 mls/hr Documented By: OLGA Insulin Human Lispro (Insulin Lispro 100 Unit/Ml 3 Ml Vial) 0 unit SUBCUT QIDACHS [facility]; Protocol Last Admin: 04/17/22 07:32 Dose: Not Given Documented By: OLGA Non-Admin Reason: No Insulin Coverage Midodrine (Midodrine Hcl 5 Mg Tablet) 5 mg PO TID [facility] Last Admin: 04/17/22 07:42 Dose: 5 mg Documented By: OLGA Nicotine (Nicotine 21 Mg Patch.Td24) 21 mg TRANSDERMA DAILY [facility] Last Admin: 04/17/22 07:39 Dose: 21 mg Documented By: OLGA Ondansetron HCl (Ondansetron Hcl 4 Mg/2 Ml Vial) 4 mg IVPUSH Q8H PRN PRN Reason: Nausea and Vomiting Pharmacy Consult (Consult Rx Perform Med Rec) 1 each MISCELLANE ONCE PRN PRN Reason: Consult order Sodium Bicarbonate (Sodium Bicarbonate 650 Mg Tablet) 650 mg PO TID [facility] Last Admin: 04/17/22 07:41 Dose: 650 mg Documented By: OLGA Sodium Chloride (0.9 % Sodium Chloride Flush 3 Ml Syringe) 3 ml IVFLUSH QSHIFT [facility] Last Admin: 04/17/22 07:43 Dose: Not Given Documented By: OLGA Non-Admin Reason: IV Running Labs CBC & Chem 7: 04/13/22 18:52 04/16/22 06:05 Labs: Laboratory Results - last 24 hr 04/16/22 04/16/22 04/16/22 11:13 17:05 19:29 POC Glucose 122 H 105 192 H 04/17/22 07:08 POC Glucose 96 Assessment and Plan (1) Adult failure to thrive: Status: Acute (2) Acute kidney injury: Status: Acute Plan A 56-year-old male with a past medical history of HIV come presents to the hospital after a neighbor was concerned that the patient was not taking care of himself, the patient was found to be significantly dehydrated--Clincal presentation consitent with advanced AIDS #? KATHERINE--likely d/t prerenal state--resolved -? likely secondary to dehydration -? continue IVF and monitoring BMP, renal consult #? Acute Dehydration--IV water replacement #? Adult failure to thrive #Severe protein calory malnutrition -? likely in the setting of HIV, history of hep C infection as well? as IV drug use -? care team consulted -? will need case management -? nutritional consult, supplement -Midline today for PPN # HIV/AIDS complex - Likely not compliant with treatment - pending CD4 count--54 - no evidence of acute infection - MRI of head wtih finding concerning for Toxo--ID to recommend treatment option -restarted on Bictarvy -Mepron for PCP prophylaxis #MRI of head finding suggestive of Toxo--being treated with Bactrom #Hypothermia, HypOtension, no source of infectious,, infectious work up (UA, CXR, Blood) unrevealing, likely d/t low body fat and needs adequate covering..Hypotension resolved with IVF ... Not due to sepsis, DC Abx #DM -SSI - diabetic diet DVT ppx: heparin sub Need for inpatient: management with KATHERINE, hypernatremia with IVF,? CM working on safe dispo Quality Stroke Does the patient have a stroke diagnosis?: No VTE Prior VTE?: No VTE Risk Level:: Medical - moderate - high VTE Device Contraindication: Treatment Not Indicated VTE Drug Contraindication: N/A - Med Ordered
[2022-04-17 11:20] LABS: Glucose, Whole Blood 94 mg/dL (60-115)
--- NOTE | 2022-04-17 12:31 | MHC.CLN ---
F/U PT TO START PPN FOR NUTRITION SUPPORT NOTED MIDLINE TODAY FOR PPN RECOMMEND D10AA4.25 AT 30ML/HR TO PROVIDE 367KCALS, 31G PROTEIN DISCUSSED WITH PHARMACY MONITOR MG, PHOS AND K+ FOR RE-FEEDING WILL REPLETE LYTES NEEDED FOLLOWING
[2022-04-17 13:25] LABS: Albumin Level 2.3 g/dL (3.5-5.0); Anion Gap 8 (12-20); Blood Urea Nitrogen 23 mg/dL (9-16); Calcium 7.8 mg/dL (8.4-10.2); Carbon Dioxide 22 mmol/L (22-29); Chloride 115 mmol/L (96-108); Creatinine Clr Calc Pharmacy 31.3; Estimated Glomerular Filt Rate 51; Glucose Random 88 mg/dL (60-115); Magnesium 1.5 mg/dL (1.6-2.6); Phosphorus 2.7 mg/dL (2.7-4.5); Sodium 141 mmol/L (135-145); Triglycerides 72 mg/dL
--- NOTE | 2022-04-17 15:40 | MHC.CM.PN ---
CALL TO PATIENT'S [facility], ADRIANNE @[phone] ADRIANNE STATES THAT PATIENT HAS A SON WITH THE SAME NAME AND A DAUGHTER THAT LIVESIN [place]. PATIENT REPORTEDLY HAS LOST CONTACT WITH CHILDREN AND DOES NOT HAVE THEIR CONTACT NUMBERS WHEN PATIENT RETURNS TO THE UNIT, CASE MANAGEMENT TO ADDRESS POSSIBILITY OF HCP COMPLETION, THIS CLIP AND HANGER ATTACHER IS UNABLE TO LOCATE ELIEZER CROUCH.
[2022-04-17] MEDS: Lidocaine HCl 1 % 20 ML VIAL 10 ML INFILTRATI (16:03)
[2022-04-17 16:20] LABS: Glucose, Whole Blood 90 mg/dL (60-115)
--- NOTE | 2022-04-17 17:41 | PC.NURSE ---
P BP low 86/56 pulse 74 I scheduled Midodrine adm late ,patient was off the floor for PICC line placement,patient asymptomatic,Dr. De Jesus made aware E will monitor
[2022-04-17 20:34] LABS: Glucose, Whole Blood 201 mg/dL (60-115)
[2022-04-17] MEDS: Insulin Lispro 100 UNIT/ML 3 ML VIAL SUBCUT (21:58)
--- NOTE | 2022-04-17 22:20 | PC.NURSE ---
P BP low this evening 48 , ,patient scheduled for Crow [place] notified E will hold Crow vent[place]
[2022-04-18] VITALS (8 sets, daily range): BP systolic 80–108; BP diastolic 52–62; PULSE 69–78; RESP 16–18; TEMP 36.1–36.6; O2SAT 100; BMI 13.6
[2022-04-18 07:07] LABS: Albumin Level 2.2 g/dL (3.5-5.0); Anion Gap 9 (12-20); Blood Urea Nitrogen 23 mg/dL (9-16); Calcium 7.6 mg/dL (8.4-10.2); Carbon Dioxide 19 mmol/L (22-29); Chloride 114 mmol/L (96-108); Creatinine Clr Calc Pharmacy 30.7; Estimated Glomerular Filt Rate 50; Glucose Random 139 mg/dL (60-115); Magnesium 1.5 mg/dL (1.6-2.6); Phosphorus 2.9 mg/dL (2.7-4.5); Potassium 3.7 mmol/L (3.3-5.1); Sodium 138 mmol/L (135-145); Triglycerides 46 mg/dL
[2022-04-18 07:31] LABS: Glucose, Whole Blood 140 mg/dL (60-115)
[2022-04-18] MEDS: Sodium Bicarbonate 650 MG TABLET PO ×4 (09:12→21:28)
[2022-04-18] MEDS: Bictegrav/Emtricit/Tenofov Ala TABLET 1 TAB PO (09:12)
[2022-04-18] MEDS: Nicotine 21 MG PATCH.TD24 TRANSDERMA (09:12)
[2022-04-18] MEDS: Atovaquone 750 MG/5 ML ORAL.SUSP 1500 MG PO (09:12)
[2022-04-18] MEDS: Midodrine HCl 5 MG TABLET PO ×3 (09:12→21:28)
[2022-04-18] MEDS: 0.9 % Sodium Chloride Flush 3 ML SYRINGE IVFLUSH ×2 (09:13→15:25)
--- NOTE | 2022-04-18 10:44 | MHC.CLN ---
F/U PPN STARTED 04/17 FOR NUTRITION SUPPORT. PICC LINE INSERTED 04/17 AND RECOMMEND START TPN 04/18. DISCUSSED WITH PHARMACY. RECOMMEND D15AA5 AT 30ML/HR TO PROVIDE 511 KCALS, 36 G PROTEIN. REPLETE LYTES NEEDED. MONITOR MG, PHOS, AND K+ FOR RE-FEEDING. RD FOLLOWING.
[2022-04-18] MEDS: Magnesium Sulfate/D5W 1 GM/100 ML PIGGYBACK IV (10:47)
[2022-04-18 11:26] LABS: Glucose, Whole Blood 142 mg/dL (60-115)
[2022-04-18] MEDS: Heparin Sodium,Porcine 5,000 UNIT/ML VIAL 5000 UNIT SUBCUT (12:02)
--- NOTE | 2022-04-18 12:15 | MHC.SL.SWA ---
Speech Pathologist Impression: Mildly slow, prolonged oral phase, otherwise WFL swallow Risk of Aspiration Due to: Poor PO Intake Dysphasia Diet Status: No Change Liquid Consistency and Strategies for Safe Swallow: Liquid Intake Recommendation: Thin Liquid Intake Strategies: Small Sips Solid Food Consistency: Dietary Recommendations: Regular Additional Modifications to Solid Foods: Patient seen for bedside dysphagia evaluation this morning. Oral phase was mildly slow, prolonged. Patient presented with mild residue when eating solids. Patient took sips of water, cleared residue. Swallow was timely. No clinical signs of aspiration with solids and liquids. Recommend continue with REGULAR solids, THIN liquids, pills WHOLE or CRUSHED in PUREE per patient's tolerance. Patient may benefit from smaller, more frequent meals d/t decreased appetite; consult w/ RD if he does not already have one. Sent Bim Message to , RN, RD w/ recommendation. Further ST intervention no longer warranted as exam was unremarkable. Please re-refer if there are any further concerns or changes. Oral Medication Intake: Whole with Puree Please contact the pharmacy regarding appropriate crushable or liquid drug formulations that are available whenever modified delivery is recommended. Compensatory Strategies and Precautions to be Taken for Safe Swallow: Sitting Upright (90 deg) Small Bites and Sips Alternate Liquids/Solids Rate of Ingestion Change Supervision While Eating and Drinking for Safe Swallow: Intermittent Supervision Recommendation for Speech: NA:Typical Evaluation Calender Supervisor Clinican/Clinical Fellow: No Supervisory Statement: I have reviewed and agree with the student/clinical fellow's documentation: N/A Speech Language Pathologist: Denita Topete M.A., CCC-BATTERY TESTER FIELD
--- NOTE | 2022-04-18 13:36 | P.PNIM_ITS ---
Subjective Subjective Date of Service: 04/18/22 Interval History: Seen and examined this morning Follow-up for failure to thrive, KATHERINE Observed sitting in bed eating breakfast, appears Comfortable. Denies any specific complaints BP continues to be low Review of Systems Review of Systems: Yes all other systems are reviewed and are negative Constitutional Constitutional: Denies chills and Denies fever(s) Cardiovascular Cardiovascular: Denies chest pain, Denies palpitations and Denies dyspnea Respiratory Respiratory: Denies dyspnea Gastrointestinal Gastrointestinal: Denies abdominal pain Endocrine Endocrine: Denies palpitations Physical Exam Vital Signs: Vital Signs: Last Vital Signs Temp 97.9 F 04/18/22 12:00 Pulse 78 04/18/22 12:00 Resp 16 04/18/22 12:00 BP 90/52 L 04/18/22 13:21 Pulse Ox 100 04/18/22 12:00 O2 Del Method 04/18/22 12:00 BMI result Body Mass Index 13.6 Const: General: cooperative, comfortable, alert and awake Nutritional Appearance: cachectic Orientation/consciousness: oriented to person and oriented to place Resp: Effort & Inspection: normal respiratory effort and able to speak in complete sentences Cardio: Rate: regular rate Heart sounds: S1 normal heart sound present and S2 normal heart sound present GI: Inspection: No distended Palpation (GI): Soft to palpation Neuro: General: oriented to person and oriented to place Extrem: General: Yes no pedal edema Objective Data Active Medications Acetaminophen (Acetaminophen 325 Mg Tablet) 650 mg PO Q6H PRN PRN Reason: Pain, Mild (Pain Scale 1-3) Atovaquone (Atovaquone 750 Mg/5 Ml Oral.Susp) 1,500 mg PO DAILY [facility] Last Admin: 04/18/22 09:12 Dose: 1,500 mg Documented By: JOANN Bictegravir/Emtricitabine/Tenofovir (Bictegrav/Emtricit/Tenofov Ala Tablet) 1 tab PO DAILY [facility] Last Admin: 04/18/22 09:12 Dose: 1 tab Documented By: JOANN Dextrose (Dextrose 50 % 25 Gm/50 Ml Syringe) 25 gm IVPUSH Q15M PRN; Protocol PRN Reason: per Hypoglycemia Standing Ord. Doxazosin Mesylate (Doxazosin Mesylate 2 Mg Tablet) 4 mg PO BEDTIME [facility]; Protocol Last Admin: 06/28/22 21:59 Dose: Not Given Documented By: IRVING Non-Admin Reason: low BP Glucose (Glucose Gel 15 Gm Gel..Gram.) 15 gm PO Q15M PRN; Protocol PRN Reason: per Hypoglycemia Standing Ord. Heparin Sodium (Porcine) (Heparin Sodium,Porcine 5,000 Unit/Ml Vial) 5,000 unit SUBCUT Q12H [facility] Last Admin: 04/18/22 12:02 Dose: 5,000 unit Documented By: JOANN Hydromorphone HCl (Hydromorphone Hcl 0.5 Mg/0.5 Ml Syringe) 0.25 mg IVPUSH Q2H PRN; Protocol PRN Reason: Pain, Moderate (Pain Scale 4-6 Last Admin: 04/16/22 14:52 Dose: 0.25 mg Documented By: JOANN Trimethoprim/Sulfamethoxazole (100 mg/ Dextrose) 506.25 mls @ 225 mls/hr IV Q12H [facility] Last Infusion: 04/18/22 05:39 Dose: 0 mls/hr Documented By: JOYCE Multivitamins 20 ml/ Trace Metals 2 ml/ Amino Acids/Electrolytes/Dextrose 720 mls @ 30 mls/hr IV DAILY@1800 [facility] Stop: 04/18/22 17:59 Last Admin: 04/17/22 18:29 Dose: 30 mls/hr Documented By: IRVING Multivitamins 14 ml/ Trace Metals 1.4 ml/ Amino Acids/Electrolytes 720 mls @ 30 mls/hr IV DAILY@1800 [facility] Stop: 04/19/22 17:59 Insulin Human Lispro (Insulin Lispro 100 Unit/Ml 3 Ml Vial) 0 unit SUBCUT QIDACHS [facility]; Protocol Last Admin: 04/18/22 11:29 Dose: Not Given Documented By: JOANN Non-Admin Reason: No Insulin Coverage Midodrine (Midodrine Hcl 5 Mg Tablet) 5 mg PO TID [facility] Last Admin: 04/18/22 12:02 Dose: 5 mg Documented By: JOANN Nicotine (Nicotine 21 Mg Patch.Td24) 21 mg TRANSDERMA DAILY [facility] Last Admin: 04/18/22 09:12 Dose: 21 mg Documented By: JOANN Ondansetron HCl (Ondansetron Hcl 4 Mg/2 Ml Vial) 4 mg IVPUSH Q8H PRN PRN Reason: Nausea and Vomiting Pharmacy Consult (Consult Rx Perform Med Rec) 1 each MISCELLANE ONCE PRN PRN Reason: Consult order Sodium Bicarbonate (Sodium Bicarbonate 650 Mg Tablet) 650 mg PO TID [facility] Last Admin: 04/18/22 09:12 Dose: 650 mg Documented By: JOANN Sodium Chloride (0.9 % Sodium Chloride Flush 3 Ml Syringe) 3 ml IVFLUSH QSHIFT [facility] Last Admin: 04/18/22 09:13 Dose: 3 ml Documented By: JOANN Labs CBC & Chem 7: 04/13/22 18:52 04/18/22 05:28 Labs: Laboratory Results - last 24 hr 04/17/22 04/17/22 04/18/22 16:13 20:31 05:28 Anion Gap 9 L Estim Creat Clear Calc 30.7 Estimated GFR 50 POC Glucose 90 201 H Random Glucose 139 H D Calcium 7.6 L Phosphorus 2.9 Magnesium 1.5 L Albumin 2.2 L Triglycerides 46 04/18/22 04/18/22 07:17 11:23 Anion Gap Estim Creat Clear Calc Estimated GFR POC Glucose 140 H 142 H Random Glucose Calcium Phosphorus Magnesium Albumin Triglycerides Microbiology Microbiology Results: Microbiology 04/13/22 03:51 Blood Culture - Final Blood - Venous No growth after 5 days. 04/13/22 03:51 Blood Culture - Final Blood - Venous No growth after 5 days. 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 not r/t sepsis Blood pressure continues to be low Patient asymptomatic Continue midodrine Consider Florinef if BP continues to be low Adult failure to thrive Severe protein calorie malnutrition likely in the setting of HIV, history of hep C infection as well as IV drug use seen by nutrition s/p speech delaney oakley, continue regular diet -? PICC line placed for PPN - ?need for calorie count, if taking in enough p.o. for adequate nutrition can DC PPN, otherwise will need to consider feeding tube Urinary retention Vera in place Seen by Urology, started on Cardura Given persistent low blood pressure may not be able to tolerate Cardura Will follow BP closely DM Metformin, insulin on hold -SSI - diabetic diet Tobacco dependence Smoking cessation advised NRT DVT ppx: heparin d/c in ICU due to bleeding seen on brain imaging attending - dr. Munoz Need for inpatient: management with KATHERINE, toxoplasmosis CM working on safe dispo Quality Stroke Does the patient have a stroke diagnosis?: No VTE Prior VTE?: No VTE Risk Level:: Medical - moderate - high VTE Device Contraindication: Treatment Not Indicated VTE Drug Contraindication: N/A - Med Ordered
--- NOTE | 2022-04-18 15:15 | PM.NEUROCN ---
History of Present Illness Data of Consult Service Date: 04/18/22 Primary Care Provider: None Physician HPI Reason for consult: Brain lesion This is a 56-year-old male with past medical history of HIV, hepatitis-C, diabetes, HTN, who was brought into the hospital via EMS after his neighbor was concerned that patient is not taking care himself.? he had a CT scan on admission that revealed a left occipital area mixed density lesion, which was further explored with an MRI of brain and then this consultation was requested. Patient denied any headache. There was no sign of any recent seizure. Review of Systems Review of Systems: No recent seizure or headache. [facility] Past Medical History Medical History Anxiety Depression Diabetes Drug abuse Hepatitis C HIV (human immunodeficiency virus infection) HTN (hypertension) MSSA bacteremia Family History Family History Father Alcoholism Mother Type 2 diabetes mellitus Sister No problems noted. Sister No problems noted. Brother No problems noted. Son No problems noted. Family history: reviewed and not pertinent Surgical History Surgical History History of repair of laceration Social History Social History Household Members: None Housing: Apartment Do you presently have visiting nurse or other home services: No Alcohol intake: current Alcohol intake frequency: holidays/special occasions only Patient Tobacco Use Status: Current everyday Tobacco user Cigarette Packs Per Day: 1 Cigarettes Per Day: 20.0 Years Smoked: 23 Second Hand Smoke Exposure: No Substance Use Type: Heroin service: No Current occupational status: unemployed Meds Allergies Allergy/AdvReac Type Severity Reaction Status Date / Time Sulfa (Sulfonamide Allergy Mild RASH Verified 11/02/20 10:47 Antibiotics) [Sulfa (Sulfonamides)] Active Medications: Current Medications Acetaminophen (Acetaminophen 325 Mg Tablet) 650 mg PO Q6H PRN PRN Reason: Pain, Mild (Pain Scale 1-3) Atovaquone (Atovaquone 750 Mg/5 Ml Oral.Susp) 1,500 mg PO DAILY [facility] Last Admin: 04/18/22 09:12 Dose: 1,500 mg Bictegravir/Emtricitabine/Tenofovir (Bictegrav/Emtricit/Tenofov Ala Tablet) 1 tab PO DAILY [facility] Last Admin: 04/18/22 09:12 Dose: 1 tab Dextrose (Dextrose 50 % 25 Gm/50 Ml Syringe) 25 gm IVPUSH Q15M PRN; Protocol PRN Reason: per Hypoglycemia Standing Ord. Doxazosin Mesylate (Doxazosin Mesylate 2 Mg Tablet) 4 mg PO BEDTIME [facility]; Protocol Last Admin: 04/17/22 21:59 Dose: Not Given Glucose (Glucose Gel 15 Gm Gel..Gram.) 15 gm PO Q15M PRN; Protocol PRN Reason: per Hypoglycemia Standing Ord. Multivitamins 20 ml/ Trace Metals 2 ml/ Amino Acids/Electrolytes/Dextrose 720 mls @ 30 mls/hr IV DAILY@1800 [facility] Stop: 04/18/22 17:59 Last Admin: 04/17/22 18:29 Dose: 30 mls/hr Multivitamins 14 ml/ Trace Metals 1.4 ml/ Amino Acids/Electrolytes 720 mls @ 30 mls/hr IV DAILY@1800 [facility] Stop: 04/19/22 17:59 Insulin Human Lispro (Insulin Lispro 100 Unit/Ml 3 Ml Vial) 0 unit SUBCUT QIDACHS [facility]; Protocol Last Admin: 04/18/22 11:29 Dose: Not Given Midodrine (Midodrine Hcl 5 Mg Tablet) 5 mg PO TID [facility] Last Admin: 04/18/22 12:02 Dose: 5 mg Nicotine (Nicotine 21 Mg Patch.Td24) 21 mg TRANSDERMA DAILY [facility] Last Admin: 04/18/22 09:12 Dose: 21 mg Ondansetron HCl (Ondansetron Hcl 4 Mg/2 Ml Vial) 4 mg IVPUSH Q8H PRN PRN Reason: Nausea and Vomiting Pharmacy Consult (Consult Rx Perform Med Rec) 1 each MISCELLANE ONCE PRN PRN Reason: Consult order Sodium Bicarbonate (Sodium Bicarbonate 650 Mg Tablet) 650 mg PO TID [facility] Last Admin: 04/18/22 14:34 Dose: 650 mg Sodium Chloride (0.9 % Sodium Chloride Flush 3 Ml Syringe) 3 ml IVFLUSH QSHIFT [facility] Last Admin: 04/18/22 09:13 Dose: 3 ml Trimethoprim/Sulfamethoxazole (Sulfamethox/Trimeth 800/160 Tablet) 1 tab PO Q12H [facility] Home Medications Medication Instructions Recorded Confirmed Last Taken Type albuterol sulfate 90 mcg/actuation 2 puff PO Q4-6H PRN Wheezing 04/08/22 04/08/22 Unknown History aerosol inhaler (Ventolin HFA) bictegravir 50 mg-emtricitabine 1 tab PO DAILY 04/08/22 04/08/22 Unknown History 200 mg-tenofovir alafenam 25 mg tablet (Biktarvy) fluticasone propionate 44 2 puff PO BID 04/08/22 04/08/22 Unknown History mcg/actuation HFA aerosol inhaler (Flovent HFA) insulin glargine 100 unit/mL 18 unit subcut BEDTIME 04/08/22 04/08/22 Unknown History subcutaneous solution (Lantus U-100 Insulin) metformin 850 mg tablet 1 tab PO BID 04/08/22 04/08/22 Unknown History Physical Exam Vital Signs: Vital Signs: Last Vital Signs Temp 97.9 F 04/18/22 12:00 Pulse 78 04/18/22 12:00 Resp 16 04/18/22 12:00 BP 90/52 L 04/18/22 13:21 Pulse Ox 100 04/18/22 12:00 O2 Del Method 04/18/22 12:00 BMI result Body Mass Index 13.6 Neuro: Other: He is alert and awake with normal spontaneity and fluency of speech. He is able to comprehend and answer simple questions and follow simple commands. He denied having any headache or discomfort. He seemed to have lost significant weight. Oral hygiene was poor and most teeth were missing. Visual ford on threat were okay. Face was symmetrical. There was no obvious focal arm or leg weakness. Deep tendon reflexes were absent with flexor plantars. Results Labs CBC & Chem 7: 04/13/22 18:52 04/18/22 05:28 Labs: BMP 04/18/22 05:28 Sodium 138 Potassium 3.7 Chloride 114 H Carbon Dioxide 19 L BUN 23 H Creatinine 1.46 H Calcium 7.6 L Liver Function 04/18/22 Range/Units 05:28 Albumin 2.2 L (3.5-5.0) g/dL CT scan and MRI of brain were reviewed. Microbiology Microbiology Results: Microbiology 04/13/22 03:51 Blood - Venous Blood Culture - Final No growth after 5 days. 04/13/22 03:51 Blood - Venous Blood Culture - Final No growth after 5 days. 04/10/22 20:00 Urine clean catch - Urine hardin top Urine Culture - Final Assessment and Plan (1) Brain lesion: Status: Acute 56 years old man with HIV related acquired immune deficiency syndrome presented with inability to take care of himself. His evaluation revealed a brain lesion mostly in left occipital area, which has mixed density signature on CT. On MRI predominately that lesion is noted. There other abnormalities including changes on opposite side but those seem to be chronic. This particular lesion could be a primary neoplasm or toxoplasmosis but overall signature was somewhat atypical for toxo. In either case, prognosis was not good. I am not sure if there is a radiological way of differentiating between the 2. There are some MR spectroscopy studies, which sometime can help to differentiate. CSF analysis and PCR testing for toxo in CSF might also help. Biopsy would be another option but not available in this institution. For now, I suggest continuing drug treatment for toxoplasmosis, checking with Radiology if MR spectroscopy study can be done to differentiate between toxoplasmosis and glioma, and repeating the scan in couple of weeks to see if there was any response to drug treatment. if any sign of seizure disorder appears, I recommend starting him on levetiracetam 500 mg twice a day. Procedures Date of Service Date of Service: 04/18/22
[2022-04-18 16:02] LABS: Glucose, Whole Blood 98 mg/dL (60-115)
--- NOTE | 2022-04-18 16:58 | PM.PNNEP ---
Subjective Subjective Date of Service: 04/18/22 Interval history: Chart Reviewed. Events noted. Physical Exam Vital Signs: Vital Signs: Last Vital Signs Temp 97.4 F 04/18/22 15:52 Pulse 69 04/18/22 15:52 Resp 18 04/18/22 15:52 BP 100/57 L 04/18/22 15:52 Pulse Ox 100 04/18/22 15:52 O2 Del Method 04/18/22 15:52 BMI result Body Mass Index 13.6 Const: General: cooperative and no acute distress HEENT: Other: bitemporal wasting Head: Yes normocephalic Neck: Neck: Yes no JVD Resp: Auscultation: clear to auscultation bilaterally Cardio: Jugular venous distension: no JVD Rate: regular rate Rhythm: regular rhythm GI: Auscultation: normal bowel sounds Extrem: General: Yes no clubbing, cyanosis or edema Objective Data Labs CBC & Chem 7: 04/13/22 18:52 04/18/22 05:28 Labs: Laboratory Results - last 24 hr 04/17/22 04/18/22 04/18/22 20:31 05:28 07:17 Sodium 138 Potassium 3.7 Chloride 114 H Carbon Dioxide 19 L Anion Gap 9 L BUN 23 H Creatinine 1.46 H Estim Creat Clear Calc 30.7 Estimated GFR 50 POC Glucose 201 H 140 H Random Glucose 139 H D Calcium 7.6 L Phosphorus 2.9 Magnesium 1.5 L Albumin 2.2 L Triglycerides 46 04/18/22 04/18/22 11:23 15:57 Sodium Potassium Chloride Carbon Dioxide Anion Gap BUN Creatinine Estim Creat Clear Calc Estimated GFR POC Glucose 142 H 98 Random Glucose Calcium Phosphorus Magnesium Albumin Triglycerides Microbiology Microbiology Results: Microbiology 04/13/22 03:51 Blood - Venous Blood Culture - Final No growth after 5 days. 04/13/22 03:51 Blood - Venous Blood Culture - Final No growth after 5 days. 04/10/22 20:00 Urine clean catch - Urine hardin top Urine Culture - Final Procedures Date of Service Date of Service: 04/18/22 Assessment & Plan Assessment and plan (1) Acute kidney injury: Status: Acute Assessment and Plan: KATHERINE due to tubular injury and dehydration. on PO Bicarb ; increaes to qid albumin x 1 today to defend IV space. May need 0.1 mg of Florinef but we can hold for now as bp improved. C/W rest of current supportive care (2) Adult failure to thrive: Status: Acute Time Spent With Patient Time: Total time spent is greater than 50% in coordination of care (as documented) at patient's floor/unit and/or counseling patient: Progress Note: Quality Stroke Does the patient have a stroke diagnosis?: No
[2022-04-18] MEDS: Albumin Human 25 % 100 ML IV ×2 (17:41→18:58)
[2022-04-18] MEDS: Sulfamethox/Trimeth 800/160 TABLET 1 TAB PO (17:45)
[2022-04-18 19:50] LABS: Glucose, Whole Blood 177 mg/dL (60-115)
[2022-04-18] MEDS: Insulin Lispro 100 UNIT/ML 3 ML VIAL SUBCUT (21:27)
[2022-04-19 04:00] VITALS: BP 97/55; PULSE 78; RESP 18; TEMP 36; O2SAT 100
[2022-04-19] MEDS: Sulfamethox/Trimeth 800/160 TABLET 1 TAB PO ×2 (05:46→21:03)
[2022-04-19 06:28] LABS: Eosinophils Absolute Auto 0.1 X10*3/uL (0.0-0.4); Eosinophils Percent Auto 2.4 % (0-4); Hematocrit 24.5 % (42.0-52.0); Hemoglobin 8.1 g/dl (14.0-18.0); Imm Gran Abs Auto 0.06 X10*3/uL (0.00-0.03); Imm Gran Pct Auto 2.9 % (0.0-0.4); Lymphocytes Absolute Auto 0.7 X10*3/uL (1.2-4.9); Lymphocytes Percent Auto 32.9 % (20-40); MANUAL DIFF FLAG SCAN; Mean Corpuscular HGB Conc 33.1 g/dl (31.0-36.0); Mean Corpuscular Hemoglobin 29.1 pg (27.0-33.0); Mean Corpuscular Volume 88.1 fL (80.0-98.0); Monocytes Absolute Auto 0.2 X10*3/uL (0.1-1.2); Monocytes Percent Auto 7.6 % (2-11); Neutrophils Absolute Auto 1.1 x10*3/uL (2.0-8.3); Neutrophils Percent Auto 53.2 % (45-73); Red Blood Count 2.78 X10*6/uL (4.60-5.80); Red Cell Distribution Width 18.5 % (11.0-16.0); SCAN SMEAR FLAG 1
[2022-04-19 06:34] LABS: Platelet Count 42 X10*3/uL (160-400); White Blood Count 2.1 X10*3/uL (4.8-10.8)
[2022-04-19 07:01] LABS: SLIDE REVIEW VERIFIED
--- NOTE | 2022-04-19 07:03 | PC.NURSE ---
patient noted with paraphimosis and tenderness to penis. foreskin is unable to retract. report from previous shift was that hospitalist was aware and saw pt, but unable to correct. day rn stated on am rounds that was same as prevcious day. day rn will follow up.
[2022-04-19 07:09] VITALS: BP 110/65; PULSE 75; RESP 18; TEMP 36.1; O2SAT 100
[2022-04-19 07:11] LABS: Anion Gap 10 (12-20); Blood Urea Nitrogen 24 mg/dL (9-16); Carbon Dioxide 19 mmol/L (22-29); Chloride 114 mmol/L (96-108); Creatinine Clr Calc Pharmacy 31.6; Estimated Glomerular Filt Rate 51; Glucose Random 87 mg/dL (60-115); Magnesium 1.9 mg/dL (1.6-2.6); Phosphorus 3.1 mg/dL (2.7-4.5); Potassium 4.3 mmol/L (3.3-5.1); Sodium 139 mmol/L (135-145); Triglycerides 27 mg/dL
[2022-04-19 07:19] LABS: Glucose, Whole Blood 80 mg/dL (60-115)
[2022-04-19 07:29] LABS: Albumin Level 2.8 g/dL (3.5-5.0); Calcium 8.4 mg/dL (8.4-10.2)
[2022-04-19] MEDS: Acetaminophen 325 MG TABLET 650 MG PO (09:00)
[2022-04-19] MEDS: Sodium Bicarbonate 650 MG TABLET PO ×4 (09:00→21:01)
[2022-04-19] MEDS: Midodrine HCl 5 MG TABLET PO ×3 (09:00→21:01)
[2022-04-19] MEDS: 0.9 % Sodium Chloride Flush 3 ML SYRINGE IVFLUSH (09:01)
[2022-04-19] MEDS: Bictegrav/Emtricit/Tenofov Ala TABLET 1 TAB PO (09:01)
[2022-04-19] MEDS: Nicotine 21 MG PATCH.TD24 TRANSDERMA (09:01)
[2022-04-19] MEDS: Atovaquone 750 MG/5 ML ORAL.SUSP 1500 MG PO (09:01)
[2022-04-19 09:39] LABS: Glucose, Whole Blood 127 mg/dL (60-115)
--- NOTE | 2022-04-19 10:15 | MHC.CLN ---
F/U PT WITH VARIABLE PO INTAKE RANGING FROM 25-100% PT ALSO RECEIVING TPN D15AA5% AT 30ML/HR RECOMMEND INCREASING TO D15AA5 AT 45ML/HR TO PROVIDE 767 KCALS, 54G PROTEIN. REPLETE LYTES NEEDED DISCUSSED WITH PHARMACY MONITOR MG, PHOS, AND K+ FOR RE-FEEDING
[2022-04-19 10:53] VITALS: BP 99/61; PULSE 72; RESP 18; TEMP 36; O2SAT 100
[2022-04-19 11:03] LABS: Glucose, Whole Blood 162 mg/dL (60-115)
[2022-04-19 11:42] LABS: Iron 57 mcg/dL (45-160); Percent Iron Saturation 38 % (15-50); Total Iron Binding Capacity 149 mcg/dL (228-428); Unsaturated Iron Binding 92 ug/dL
[2022-04-19 12:02] LABS: Ferritin 366 ng/mL (20-250)
[2022-04-19 12:21] LABS: Folate 7.3 ng/mL (> or = 4.0); Vitamin B12 1870 pg/mL (200-900)
[2022-04-19] MEDS: Insulin Lispro 100 UNIT/ML 3 ML VIAL SUBCUT (12:50)
--- NOTE | 2022-04-19 13:15 | P.PNIM_ITS ---
Subjective Subjective Date of Service: 04/19/22 Interval History: Seen and examined this morning Paraphimosis corrected by Urology this morning, penis is sore; otherwise no specific complaints Review of Systems Review of Systems: Yes all other systems are reviewed and are negative Constitutional Constitutional: Denies chills and Denies fever(s) Cardiovascular Cardiovascular: Denies chest pain, Denies palpitations and Denies dyspnea Respiratory Respiratory: Denies cough and Denies dyspnea Gastrointestinal Gastrointestinal: Denies abdominal pain, Denies nausea and Denies vomiting Endocrine Endocrine: Denies palpitations Physical Exam Vital Signs: Vital Signs: Last Vital Signs Temp 96.8 F 04/19/22 10:53 Pulse 72 04/19/22 10:53 Resp 18 04/19/22 10:53 BP 99/61 04/19/22 10:53 Pulse Ox 100 04/19/22 10:53 O2 Del Method 04/19/22 10:53 BMI result Body Mass Index 13.6 Const: General: cooperative, comfortable, alert and awake Nutritional Appearance: cachectic and malnourished Orientation/consciousness: oriented to person and oriented to place Resp: Effort & Inspection: normal respiratory effort and able to speak in comp lete sentences Cardio: Rate: regular rate Heart sounds: S1 normal heart sound present and S2 normal heart sound present GI: Inspection: No distended Palpation (GI): Soft to palpation : Other: mojica in place draining clear yellow urine Neuro: General: oriented to person and oriented to place Extrem: General: Yes no pedal edema Objective Data Active Medications Acetaminophen (Acetaminophen 325 Mg Tablet) 650 mg PO Q6H PRN PRN Reason: Pain, Mild (Pain Scale 1-3) Last Admin: 04/19/22 09:00 Dose: 650 mg Documented By: JOANN Atovaquone (Atovaquone 750 Mg/5 Ml Oral.Susp) 1,500 mg PO DAILY [facility] Last Admin: 04/19/22 09:01 Dose: 1,500 mg Documented By: JOANN Bictegravir/Emtricitabine/Tenofovir (Bictegrav/Emtricit/Tenofov Ala Tablet) 1 tab PO DAILY [facility] Last Admin: 04/19/22 09:01 Dose: 1 tab Documented By: JOANN Dextrose (Dextrose 50 % 25 Gm/50 Ml Syringe) 25 gm IVPUSH Q15M PRN; Protocol PRN Reason: per Hypoglycemia Standing Ord. Doxazosin Mesylate (Doxazosin Mesylate 2 Mg Tablet) 4 mg PO BEDTIME [facility]; Protocol Last Admin: 04/17/22 21:59 Dose: Not Given Documented By: IRVING Non-Admin Reason: low BP Glucose (Glucose Gel 15 Gm Gel..Gram.) 15 gm PO Q15M PRN; Protocol PRN Reason: per Hypoglycemia Standing Ord. Multivitamins 14 ml/ Trace Metals 1.4 ml/ Amino Acids/Electrolytes 720 mls @ 30 mls/hr IV DAILY@1800 [facility] Stop: 04/19/22 17:59 Last Admin: 04/18/22 17:46 Dose: 30 mls/hr Documented By: IRVING Multivitamins 10 ml/ Trace Metals 1 ml/ Amino Acids/Electrolytes 1,011 mls @ 45 mls/hr IV DAILY@1800 [facility] Stop: 04/20/22 16:27 Insulin Human Lispro (Insulin Lispro 100 Unit/Ml 3 Ml Vial) 0 unit SUBCUT QIDACHS [facility]; Protocol Last Admin: 04/19/22 12:50 Dose: 2 unit Documented By: JOANN Midodrine (Midodrine Hcl 5 Mg Tablet) 5 mg PO TID [facility] Last Admin: 04/19/22 09:00 Dose: 5 mg Documented By: JOANN Nicotine (Nicotine 21 Mg Patch.Td24) 21 mg TRANSDERMA DAILY [facility] Last Admin: 04/19/22 09:01 Dose: 21 mg Documented By: JOANN Ondansetron HCl (Ondansetron Hcl 4 Mg/2 Ml Vial) 4 mg IVPUSH Q8H PRN PRN Reason: Nausea and Vomiting Pharmacy Consult (Consult Rx Perform Med Rec) 1 each MISCELLANE ONCE PRN PRN Reason: Consult order Sodium Bicarbonate (Sodium Bicarbonate 650 Mg Tablet) 650 mg PO QID [facility] Last Admin: 04/19/22 12:51 Dose: 650 mg Documented By: JOANN Sodium Chloride (0.9 % Sodium Chloride Flush 3 Ml Syringe) 3 ml IVFLUSH QSHIFT [facility] Last Admin: 04/19/22 09:01 Dose: 3 ml Documented By: JOANN Trimethoprim/Sulfamethoxazole (Sulfamethox/Trimeth 800/160 Tablet) 1 tab PO Q12H [facility] Last Admin: 06/30/22 05:46 Dose: 1 tab Documented By: YOSI Labs CBC & Chem 7: 04/19/22 06:07 04/19/22 06:07 Labs: Laboratory Results - last 24 hr 04/18/22 04/18/22 04/19/22 15:57 19:45 06:07 MCV 88.1 MCH 29.1 MCHC 33.1 RDW 18.5 H Plt Count 42 L D MPV 10.0 Immature Gran % (Auto) 2.9 H Neut % (Auto) 53.2 Lymph % (Auto) 32.9 [place] % (Auto) 7.6 Eos % (Auto) 2.4 Baso % (Auto) 1.0 Lymph # (Auto) 0.7 L [place] # (Auto) 0.2 Eos # (Auto) 0.1 Baso # (Auto) 0.0 Abs Immat Gran (auto) 0.06 H Absolute Neuts (auto) 1.1 L Absolute Nucleated RBC 0.000 Nucleated RBC % (auto) 0.0 Smear Tech's Comments VERIFIED Smear Path Review SEE NOTE Anion Gap Estim Creat Clear Calc Estimated GFR POC Glucose 98 177 H Random Glucose Calcium Phosphorus Magnesium Iron TIBC % Saturation Unsat Iron Binding Ferritin Albumin Triglycerides Vitamin B12 Folate 04/19/22 04/19/22 04/19/22 06:07 06:07 07:14 MCV MCH MCHC RDW Plt Count MPV Immature Gran % (Auto) Neut % (Auto) Lymph % (Auto) [place] % (Auto) Eos % (Auto) Baso % (Auto) Lymph # (Auto) [place] # (Auto) Eos # (Auto) Baso # (Auto) Abs Immat Gran (auto) Absolute Neuts (auto) Absolute Nucleated RBC Nucleated RBC % (auto) Smear Tech's Comments Smear Path Review Anion Gap 10 L Estim Creat Clear Calc 31.6 Estimated GFR 51 POC Glucose 80 Random Glucose 87 D Calcium 8.4 D Phosphorus 3.1 Magnesium 1.9 Iron 57 TIBC 149 L % Saturation 38 Unsat Iron Binding 92 Ferritin 366 H Albumin 2.8 L D Triglycerides 27 Vitamin B12 1870 H Folate 7.3 04/19/22 04/19/22 09:35 10:58 MCV MCH MCHC RDW Plt Count MPV Immature Gran % (Auto) Neut % (Auto) Lymph % (Auto) [place] % (Auto) Eos % (Auto) Baso % (Auto) Lymph # (Auto) [place] # (Auto) Eos # (Auto) Baso # (Auto) Abs Immat Gran (auto) Absolute Neuts (auto) Absolute Nucleated RBC Nucleated RBC % (auto) Smear Tech's Comments Smear Path Review Anion Gap Estim Creat Clear Calc Estimated GFR POC Glucose 127 H 162 H Random Glucose Calcium Phosphorus Magnesium Iron TIBC % Saturation Unsat Iron Binding Ferritin Albumin Triglycerides Vitamin B12 Folate Assessment and Plan (1) Brain lesion: Status: Acute (2) Urinary retention with incomplete bladder emptying: Status: Acute (3) Adult failure to thrive: Status: Acute (4) Acute kidney injury: Status: Acute Plan A 56-year-old male with a past medical history of HIV come presents to the hospital after a neighbor was concerned that the patient was not taking care of himself, the patient was found to be significantly dehydrated--Clincal presentation consistent with advanced AIDS 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 If changes persist consider workup for primary brain malignancy Brain hemorrhage seen by Neurology, can be seen with toxoplasmosis -avoid blood thinners HIV/AIDS complex Likely not compliant with treatment CD4 count--54 - MRI of head wtih finding concerning for Toxo--as above -restarted on Bictarvy -Mepron for PCP prophylaxis KATHERINE/metabolic acidosis likely d/t prerenal state-improved likely secondary to dehydration s/p IVF -renal following -continue sodium bicarbonate Hypotension. not r/t sepsis Blood pressure continues to be low Patient asymptomatic Continue midodrine Consider Florinef if BP continues to be low Adult failure to thrive Severe protein calorie malnutrition likely in the setting of HIV, history of hep C infection as well as IV drug use seen by nutrition s/p speech eval, wnl, continue regular diet -? PICC line placed for PPN - discussed with Nutrition, they recommend patient be eating 50% of meals or greater consistently before discontinuing PPN Pancytopenia Chronic follow CBC Urinary retention Mojica in place Seen by Urology, started on Cardura Given persistent low blood pressure, Cardura stopped Will follow BP closely DM Metformin, insulin on hold -SSI - diabetic diet Tobacco dependence Smoking cessation advised NRT DVT ppx: heparin d/c in ICU due to bleeding seen on brain imaging; mechanical devices attending - dr. Munoz Need for inpatient: management with KATHERINE, toxoplasmosis CM working on safe dispo [place] following needs HCP Quality Stroke Does the patient have a stroke diagnosis?: No VTE Prior VTE?: No VTE Risk Level:: Medical - moderate - high VTE Device Contraindication: Treatment Not Indicated VTE Drug Contraindication: N/A - Med Ordered
[2022-04-19 15:16] VITALS: BP 111/67; PULSE 84; RESP 18; TEMP 36.9; O2SAT 100
--- NOTE | 2022-04-19 15:32 | PM.UROPN ---
Subjective Subjective Date of Service: 04/19/22 Interval history: Asked to see patient today paraphimosis Had Vera catheter in place Appears to have developed urgent paraphimosis On examination with nursing staff has marked paraphimosis Nursing unable to reduce Bedside reduction of paraphimosis performed using steady increasing pressure to reduce edema in glans of penis and bring paraphimosis ring back into normal position Edematous tissue did have fluid escaped Continue with shift evaluation Remove Vera catheter tomorrow morning Physical Exam Vital Signs: Vital Signs: Last Vital Signs Temp 98.5 F 04/19/22 15:16 Pulse 84 04/19/22 15:16 Resp 18 04/19/22 15:16 BP 111/67 04/19/22 15:16 Pulse Ox 100 04/19/22 15:16 O2 Del Method 04/19/22 15:16 BMI result Body Mass Index 13.6 Const: General: cooperative, healthy appearing, comfortable and no acute distress Orientation/consciousness: patient oriented x3 HEENT: Face and sinus: Yes normal facial exam Mouth: moist mucous membranes Neck: Neck: Yes normal visual inspection, Yes full ROM and Yes trachea midline Chest: Chest palpation & inspection: normal inspection of the chest Resp: Effort & Inspection: normal respiratory effort, able to speak in complete sentences and no respiratory distress GI: Inspection: Yes normal to inspection Back/Spine/Pelvis: Cervical Spine: normal cervical lordosis Thoracic/Lumbar Spine: thoracic and lumbar spine normal to inspection Skin: General skin exam: no rashes or lesions noted Neuro: General: patient oriented x3, tone normal and moves all extremities Extrem: General: Yes normal to inspection and Yes capillary refill normal Urology Results Labs CBC & Chem 7: 04/19/22 06:07 04/19/22 06:07 Labs: Laboratory Results - last 24 hr 04/18/22 04/18/22 04/19/22 15:57 19:45 06:07 WBC 2.1 L RBC 2.78 L Hgb 8.1 L Hct 24.5 L MCV 88.1 MCH 29.1 MCHC 33.1 RDW 18.5 H Plt Count 42 L D MPV 10.0 Immature Gran % (Auto) 2.9 H Neut % (Auto) 53.2 Lymph % (Auto) 32.9 [place] % (Auto) 7.6 Eos % (Auto) 2.4 Baso % (Auto) 1.0 Lymph # (Auto) 0.[address] [place] # (Auto) 0.2 Eos # (Auto) 0.1 Baso # (Auto) 0.0 Abs Immat Gran (auto) 0.06 H Absolute Neuts (auto) 1.1 L Absolute Nucleated RBC 0.000 Nucleated RBC % (auto) 0.0 Smear Tech's Comments VERIFIED Smear Path Review SEE NOTE Sodium Potassium Chloride Carbon Dioxide Anion Gap BUN Creatinine Estim Creat Clear Calc Estimated GFR POC Glucose 98 177 H Random Glucose Calcium Phosphorus Magnesium Iron TIBC % Saturation Unsat Iron Binding Ferritin Albumin Triglycerides Vitamin B12 Folate 04/19/22 04/19/22 04/19/22 06:07 06:07 07:14 WBC RBC Hgb Hct MCV MCH MCHC RDW Plt Count MPV Immature Gran % (Auto) Neut % (Auto) Lymph % (Auto) [place] % (Auto) Eos % (Auto) Baso % (Auto) Lymph # (Auto) [place] # (Auto) Eos # (Auto) Baso # (Auto) Abs Immat Gran (auto) Absolute Neuts (auto) Absolute Nucleated RBC Nucleated RBC % (auto) Smear Tech's Comments Smear Path Review Sodium 139 Potassium 4.3 Chloride 114 H Carbon Dioxide 19 L Anion Gap 10 L BUN 24 H Creatinine 1.42 H Estim Creat Clear Calc 31.6 Estimated GFR 51 POC Glucose 80 Random Glucose 87 D Calcium 8.4 D Phosphorus 3.1 Magnesium 1.9 Iron 57 TIBC 149 L % Saturation 38 Unsat Iron Binding 92 Ferritin 366 H Albumin 2.8 L D Triglycerides 27 Vitamin B12 1870 H Folate 7.3 04/19/22 04/19/22 09:35 10:58 WBC RBC Hgb Hct MCV MCH MCHC RDW Plt Count MPV Immature Gran % (Auto) Neut % (Auto) Lymph % (Auto) [place] % (Auto) Eos % (Auto) Baso % (Auto) Lymph # (Auto) [place] # (Auto) Eos # (Auto) Baso # (Auto) Abs Immat Gran (auto) Absolute Neuts (auto) Absolute Nucleated RBC Nucleated RBC % (auto) Smear Tech's Comments Smear Path Review Sodium Potassium Chloride Carbon Dioxide Anion Gap BUN Creatinine Estim Creat Clear Calc Estimated GFR POC Glucose 127 H 162 H Random Glucose Calcium Phosphorus Magnesium Iron TIBC % Saturation Unsat Iron Binding Ferritin Albumin Triglycerides Vitamin B12 Folate Progress Note: A&P Assessment and plan (1) Paraphimosis: Status: Acute Plan Continue with nursing shift review Time Spent With Patient Time: Total time spent is greater than 50% in coordination of care (as documented) at patient's floor/unit and/or counseling patient: Progress Note: Quality Stroke Does the patient have a stroke diagnosis?: No
[2022-04-19 15:48] LABS: Glucose, Whole Blood 50 mg/dL (60-115)
[2022-04-19 16:17] LABS: Glucose, Whole Blood 66 mg/dL (60-115)
[2022-04-19 16:46] LABS: Glucose, Whole Blood 117 mg/dL (60-115)
--- NOTE | 2022-04-19 19:11 | P.PNNP_ITS ---
Subjective Subjective Date of Service: 04/19/22 Interval history: Chart reviewed. Events noted. Physical Exam Vital Signs: Vital Signs: Last Vital Signs Temp 98.5 F 04/19/22 15:16 Pulse 84 04/19/22 15:16 Resp 18 04/19/22 15:16 BP 111/67 04/19/22 15:16 Pulse Ox 100 04/19/22 15:16 O2 Del Method 04/19/22 15:16 BMI result Body Mass Index 13.6 Const: General: cooperative and no acute distress HEENT: Head: Yes normocephalic Neck: Neck: Yes no JVD Resp: Auscultation: clear to auscultation bilaterally Cardio: Jugular venous distension: no JVD Rate: regular rate Rhythm: regular rhythm Heart sounds: S1 normal heart sound present and S2 normal heart sound present GI: Auscultation: normal bowel sounds Neuro: General: moves all extremities Extrem: General: Yes no clubbing, cyanosis or edema Objective Data Labs CBC & Chem 7: 04/19/22 06:07 04/19/22 06:07 Labs: Laboratory Results - last 24 hr 04/18/22 04/19/22 04/19/22 19:45 06:07 06:07 WBC 2.1 L RBC 2.78 L Hgb 8.1 L Hct 24.5 L MCV 88.1 MCH 29.1 MCHC 33.1 RDW 18.5 H Plt Count 42 L D MPV 10.0 Immature Gran % (Auto) 2.9 H Neut % (Auto) 53.2 Lymph % (Auto) 32.9 [place] % (Auto) 7.6 Eos % (Auto) 2.4 Baso % (Auto) 1.0 Lymph # (Auto) 0.7 L [place] # (Auto) 0.2 Eos # (Auto) 0.1 Baso # (Auto) 0.0 Abs Immat Gran (auto) 0.06 H Absolute Neuts (auto) 1.1 L Absolute Nucleated RBC 0.000 Nucleated RBC % (auto) 0.0 Smear Tech's Comments VERIFIED Smear Path Review SEE NOTE Sodium 139 Potassium 4.3 Chloride 114 H Carbon Dioxide 19 L Anion Gap 10 L BUN 24 H Creatinine 1.42 H Estim Creat Clear Calc 31.6 Estimated GFR 51 POC Glucose 177 H Random Glucose 87 D Calcium 8.4 D Phosphorus 3.1 Magnesium 1.9 Iron 57 TIBC 149 L % Saturation 38 Unsat Iron Binding 92 Ferritin 366 H Albumin 2.8 L D Triglycerides 27 Vitamin B12 Folate 04/19/22 04/19/22 04/19/22 06:07 07:14 09:35 WBC RBC Hgb Hct MCV MCH MCHC RDW Plt Count MPV Immature Gran % (Auto) Neut % (Auto) Lymph % (Auto) [place] % (Auto) Eos % (Auto) Baso % (Auto) Lymph # (Auto) [place] # (Auto) Eos # (Auto) Baso # (Auto) Abs Immat Gran (auto) Absolute Neuts (auto) Absolute Nucleated RBC Nucleated RBC % (auto) Smear Tech's Comments Smear Path Review Sodium Potassium Chloride Carbon Dioxide Anion Gap BUN Creatinine Estim Creat Clear Calc Estimated GFR POC Glucose 80 127 H Random Glucose Calcium Phosphorus Magnesium Iron TIBC % Saturation Unsat Iron Binding Ferritin Albumin Triglycerides Vitamin B12 1870 H Folate 7.3 04/19/22 04/19/22 04/19/22 10:58 15:42 15:59 WBC RBC Hgb Hct MCV MCH MCHC RDW Plt Count MPV Immature Gran % (Auto) Neut % (Auto) Lymph % (Auto) [place] % (Auto) Eos % (Auto) Baso % (Auto) Lymph # (Auto) [place] # (Auto) Eos # (Auto) Baso # (Auto) Abs Immat Gran (auto) Absolute Neuts (auto) Absolute Nucleated RBC Nucleated RBC % (auto) Smear Tech's Comments Smear Path Review Sodium Potassium Chloride Carbon Dioxide Anion Gap BUN Creatinine Estim Creat Clear Calc Estimated GFR POC Glucose 162 H 50 L* 66 Random Glucose Calcium Phosphorus Magnesium Iron TIBC % Saturation Unsat Iron Binding Ferritin Albumin Triglycerides Vitamin B12 Folate 04/19/22 16:42 WBC RBC Hgb Hct MCV MCH MCHC RDW Plt Count MPV Immature Gran % (Auto) Neut % (Auto) Lymph % (Auto) [place] % (Auto) Eos % (Auto) Baso % (Auto) Lymph # (Auto) [place] # (Auto) Eos # (Auto) Baso # (Auto) Abs Immat Gran (auto) Absolute Neuts (auto) Absolute Nucleated RBC Nucleated RBC % (auto) Smear Tech's Comments Smear Path Review Sodium Potassium Chloride Carbon Dioxide Anion Gap BUN Creatinine Estim Creat Clear Calc Estimated GFR POC Glucose 117 H Random Glucose Calcium Phosphorus Magnesium Iron TIBC % Saturation Unsat Iron Binding Ferritin Albumin Triglycerides Vitamin B12 Folate Microbiology Microbiology Results: Microbiology 04/13/22 03:51 Blood - Venous Blood Culture - Final No growth after 5 days. 04/13/22 03:51 Blood - Venous Blood Culture - Final No growth after 5 days. 04/10/22 20:00 Urine clean catch - Urine hardin top Urine Culture - Final Procedures Date of Service Date of Service: 04/19/22 Assessment & Plan Assessment and plan (1) Volume depletion: Status: Acute (2) Acute dehydration: Status: Acute (3) Acute kidney injury: Status: Acute Plan KATHERINE due to tubular injury and dehydration. on PO Bicarb ; Can continue tid s/p albumin to defend IV space. Cr stable. Increae protein intake. Support nutrition with boost or ensure with meals. Encourage FW intake. bp normotensive but may require florinef additionally to maintain MAP. C/W rest of current supportive care Time Spent With Patient Time: Total time spent is greater than 50% in coordination of care (as documented) at patient's floor/unit and/or counseling patient: Progress Note: Quality Stroke Does the patient have a stroke diagnosis?: No
[2022-04-19 19:31] VITALS: BP 82/52; PULSE 83; RESP 16; TEMP 37.4; O2SAT 100
[2022-04-19 19:52] LABS: Glucose, Whole Blood 100 mg/dL (60-115)
[2022-04-19 23:37] VITALS: BP 107/67; PULSE 88; RESP 18; TEMP 36.1; O2SAT 100
[2022-04-20] VITALS (8 sets, daily range): BP systolic 84–107; BP diastolic 51–71; PULSE 78–82; RESP 16–22; TEMP 36.5–36.7; O2SAT 99–100
[2022-04-20] MEDS: Sulfamethox/Trimeth 800/160 TABLET 1 TAB PO (06:09)
[2022-04-20 07:17] LABS: Albumin Level 2.8 g/dL (3.5-5.0); Anion Gap 10 (12-20); Blood Urea Nitrogen 26 mg/dL (9-16); Calcium 8.5 mg/dL (8.4-10.2); Carbon Dioxide 20 mmol/L (22-29); Chloride 112 mmol/L (96-108); Creatinine Clr Calc Pharmacy 30.7; Estimated Glomerular Filt Rate 50; Glucose Random 111 mg/dL (60-115); Magnesium 1.8 mg/dL (1.6-2.6); Phosphorus 2.9 mg/dL (2.7-4.5); Potassium 5.1 mmol/L (3.3-5.1); Sodium 137 mmol/L (135-145); Triglycerides 15 mg/dL
[2022-04-20 07:19] LABS: Glucose, Whole Blood 102 mg/dL (60-115)
[2022-04-20] MEDS: Dextrose 5 % and Lactated Ring 1,000 ML 50 ML IVCONT (07:52)
[2022-04-20] MEDS: Bictegrav/Emtricit/Tenofov Ala TABLET 1 TAB PO (07:56)
[2022-04-20] MEDS: Midodrine HCl 5 MG TABLET PO ×3 (07:56→20:33)
[2022-04-20] MEDS: Sodium Bicarbonate 650 MG TABLET PO ×4 (07:57→20:33)
[2022-04-20] MEDS: Atovaquone 750 MG/5 ML ORAL.SUSP 1500 MG PO (07:57)
[2022-04-20] MEDS: Nicotine 21 MG PATCH.TD24 TRANSDERMA (07:57)
--- NOTE | 2022-04-20 08:03 | PC.NURSE ---
low bp 84/54 patient asymptomatic, Gonzalo TOLBERT notified. Previously ordered IV fluids were not running, infusion restarted, FC removed per Dr Burns order.
--- NOTE | 2022-04-20 10:21 | MHC.CLN ---
F/U FOUR DAY RANDOM AVERAGE OF PO INTAKE=21.4% IF DIET-1800 KCALS, INTAKE IS 385 KCALS (EXCLUDING SUPPLEMENT). DIET=REGULAR WITH ENSURE TID. STAFF REPORTS THAT PT NOT TAKING SUPPLEMENT BUT UNSURE IF CONSISTENT. DECREASING ENSURE TO BID (700 KCALS, 40 G PROTEIN). TPN RUNNING [id number] AT 45ML/HR PROVIDES 767 KCALS, 54 G PROTEIN. REPLETE LYTES NEEDED. DISCUSSED WITH PHARMACY AND PROVIDER. CONTINUE CURRENT TPN RATE AT 45 ML PER HOUR WITH NO LIPIDS. LABS REVIEWED AND NO INDICATIONS OF RE-FEEDING AT THIS TIME. MONITOR MG, PHOS, AND K+ FOR RE-FEEDING.
--- NOTE | 2022-04-20 10:39 | PM.PNNEP ---
Subjective Subjective Date of Service: 04/20/22 Interval history: Chart reviewed. Events noted. Pt seen, he is attempting to eat but only completing 25% of meals TPN ongoing Physical Exam Vital Signs: Vital Signs: Last Vital Signs Temp 98.1 F 04/20/22 07:13 Pulse 82 04/20/22 07:13 Resp 16 04/20/22 07:13 BP 84/54 L 04/20/22 07:13 Pulse Ox 99 04/20/22 07:13 O2 Del Method 04/20/22 07:13 BMI result Body Mass Index 13.6 Const: Other: General: calm, no agitation, very emaciated, cachectic Resp: CTA bilateral CVS: S1,S2,RRR GI: +BS, NT, no distention Skin: No rash Neuro: motor grossly intact Psych: flat affect General: cooperative, healthy appearing, comfortable, no acute distress, alert and awake Nutritional Appearance: cachectic and malnourished Orientation/consciousness: oriented to person, oriented to place and patient oriented x3 HEENT: Other: bitemporal wasting Head: Yes normocephalic and Yes atraumatic Ears: external ears normal General nose exam: Normal external nose present Face and sinus: Yes normal facial exam Mouth: moist mucous membranes and other ( very dry mucous membranes) Eyes: General: appearance normal, both eyes and all related structures Corneas: corneas abnormal (left opacification cornea) Pupils: Equal, round and reactive pupils present EOM: EOMs intact bilaterally Neck: Neck: Yes normal visual inspection, Yes full ROM, Yes no lymphadenopathy, Yes trachea midline, Yes supple and Yes no JVD Chest: Chest palpation & inspection: normal inspection of the chest and normal palpation of entire chest wall Resp: Effort & Inspection: normal respiratory effort, able to speak in complete sentences and no respiratory distress Auscultation: clear to auscultation bilaterally and diminished lung sounds Cardio: Jugular venous distension: no JVD Palpation: no palpable S3 Rate: regular rate Rhythm: regular rhythm Heart sounds: S1 normal heart sound present, S2 normal heart sound present, no murmurs and no rubs GI: Inspection: Yes normal to inspection and No distended Palpation (GI): Soft to palpation, nontender and no guarding Auscultation: normal bowel sounds : Other: mojica in place draining clear yellow urine General: Yes no CVA tenderness Back/Spine/Pelvis: Back: no CVA tenderness Cervical Spine: normal cervical lordosis Thoracic/Lumbar Spine: thoracic and lumbar spine normal to inspection Skin: Other: Significant dehydration General skin exam: no rashes or lesions noted Neuro: Other: He is alert and awake with normal spontaneity and fluency of speech. He is able to comprehend and answer simple questions and follow simple commands. He denied having any headache or discomfort. He seemed to have lost significant weight. Oral hygiene was poor and most teeth were missing. Visual ford on threat were okay. Face was symmetrical. There was no obvious focal arm or leg weakness. Deep tendon reflexes were absent with flexor plantars. General: oriented to person, oriented to place, patient oriented x3, tone normal, moves all extremities and no focal motor deficits Cranial nerves: Yes CN's II-XII intact bilaterally and Yes Equal, round and reactive pupils present Cognition (Neuro): normal cognition Motor exam (neuro): 5/5 motor strength present throughout and no asterixis Extrem: General: Yes normal to inspection, Yes capillary refill normal, Yes no clubbing, cyanosis or edema and Yes no pedal edema Objective Data Labs CBC & Chem 7: 04/19/22 06:07 04/20/22 05:51 Labs: Laboratory Results - last 24 hr 04/19/22 04/19/22 04/19/22 06:07 06:07 06:07 Smear Path Review SEE NOTE Sodium Potassium Chloride Carbon Dioxide Anion Gap BUN Creatinine Estim Creat Clear Calc Estimated GFR POC Glucose Random Glucose Calcium Phosphorus Magnesium Iron 57 TIBC 149 L % Saturation 38 Unsat Iron Binding 92 Ferritin 366 H Albumin Triglycerides Vitamin B12 1870 H Folate 7.3 04/19/22 04/19/22 04/19/22 10:58 15:42 15:59 Smear Path Review Sodium Potassium Chloride Carbon Dioxide Anion Gap BUN Creatinine Estim Creat Clear Calc Estimated GFR POC Glucose 162 H 50 L* 66 Random Glucose Calcium Phosphorus Magnesium Iron TIBC % Saturation Unsat Iron Binding Ferritin Albumin Triglycerides Vitamin B12 Folate 04/19/22 04/19/22 04/20/22 16:42 19:45 05:51 Smear Path Review Sodium 137 Potassium 5.1 Chloride 112 H Carbon Dioxide 20 L Anion Gap 10 L BUN 26 H Creatinine 1.46 H Estim Creat Clear Calc 30.7 Estimated GFR 50 POC Glucose 117 H 100 Random Glucose 111 Calcium 8.5 Phosphorus 2.9 Magnesium 1.8 Iron TIBC % Saturation Unsat Iron Binding Ferritin Albumin 2.8 L Triglycerides 15 Vitamin B12 Folate 04/20/22 07:10 Smear Path Review Sodium Potassium Chloride Carbon Dioxide Anion Gap BUN Creatinine Estim Creat Clear Calc Estimated GFR POC Glucose 102 Random Glucose Calcium Phosphorus Magnesium Iron TIBC % Saturation Unsat Iron Binding Ferritin Albumin Triglycerides Vitamin B12 Folate Microbiology Microbiology Results: Microbiology 04/13/22 03:51 Blood - Venous Blood Culture - Final No growth after 5 days. 04/13/22 03:51 Blood - Venous Blood Culture - Final No growth after 5 days. 04/10/22 20:00 Urine clean catch - Urine hardin top Urine Culture - Final Procedures Date of Service Date of Service: 04/20/22 Assessment & Plan Assessment and plan (1) Acute kidney injury: Status: Acute Assessment and Plan: KATHERINE: etiology a bit unclear; appears closer to euvolemic; had hematuria and pyuria; CT shows normal kidneys; ddx would include paraprotein related process, AIN, ATN, GN Would order urine culture, serologies: C3 and C4, SPEP and immunofixation, hepatitis B and C serologies (2) Pancytopenia: Status: Acute (3) Adult failure to thrive: Status: Acute Plan Please order urine culture and serologies as listed above TPN continue Time Spent With Patient Time: Total time spent is greater than 50% in coordination of care (as documented) at patient's floor/unit and/or counseling patient: Progress Note: Quality Stroke Does the patient have a stroke diagnosis?: No
[2022-04-20 11:14] LABS: Glucose, Whole Blood 238 mg/dL (60-115)
[2022-04-20] MEDS: Insulin Lispro 100 UNIT/ML 3 ML VIAL SUBCUT (12:44)
--- NOTE | 2022-04-20 12:56 | P.PNIM_ITS ---
Subjective Subjective Date of Service: 04/20/22 Interval History: Seen and examined this morning Follow-up for toxoplasmosis, failure to thrive No specific complaints this morning. Observed eating breakfast Denies abdominal pain, shortness of breath, chest pain Review of Systems Review of Systems: Yes all other systems are reviewed and are negative Constitutional Constitutional: Denies chills and Denies fever(s) Cardiovascular Cardiovascular: Denies chest pain, Denies palpitations and Denies dyspnea Respiratory Respiratory: Denies cough and Denies dyspnea Gastrointestinal Gastrointestinal: Denies abdominal pain Endocrine Endocrine: Denies palpitations Physical Exam Vital Signs: Vital Signs: Last Vital Signs Temp 97.9 F 04/20/22 11:20 Pulse 78 04/20/22 11:20 Resp 16 04/20/22 11:20 BP 92/55 L 04/20/22 11:20 Pulse Ox 100 04/20/22 11:20 O2 Del Method 04/20/22 11:20 BMI result Body Mass Index 13.6 Const: General: cooperative, comfortable, alert and awake Nutritional Appearance: cachectic and malnourished Orientation/consciousness: oriented to person and oriented to place Resp: Effort & Inspection: normal respiratory effort and able to speak in complete sentences Cardio: Rate: regular rate Heart sounds: S1 normal heart sound present and S2 normal heart sound present GI: Inspection: No distended Palpation (GI): Soft to palpation Neuro: General: oriented to person and oriented to place Extrem: General: Yes no pedal edema Objective Data Active Medications Acetaminophen (Acetaminophen 325 Mg Tablet) 650 mg PO Q6H PRN PRN Reason: Pain, Mild (Pain Scale 1-3) Last Admin: 04/19/22 09:00 Dose: 650 mg Documented By: JOANN Atovaquone (Atovaquone 750 Mg/5 Ml Oral.Susp) 1,500 mg PO DAILY [facility] Last Admin: 04/20/22 07:57 Dose: 1,500 mg Documented By: LEXUS Bictegravir/Emtricitabine/Tenofovir (Bictegrav/Emtricit/Tenofov Ala Tablet) 1 tab PO DAILY [facility] Last Admin: 04/20/22 07:56 Dose: 1 tab Documented By: LEXUS Dextrose (Dextrose 50 % 25 Gm/50 Ml Syringe) 25 gm IVPUSH Q15M PRN; Protocol PRN Reason: per Hypoglycemia Standing Ord. Doxazosin Mesylate (Doxazosin Mesylate 2 Mg Tablet) 4 mg PO BEDTIME [facility]; Protocol Last Admin: 04/17/22 21:59 Dose: Not Given Documented By: IRVING Non-Admin Reason: low BP Glucose (Glucose Gel 15 Gm Gel..Gram.) 15 gm PO Q15M PRN; Protocol PRN Reason: per Hypoglycemia Standing Ord. Multivitamins 10 ml/ Trace Metals 1 ml/ Amino Acids/Electrolytes 1,011 mls @ 45 mls/hr IV DAILY@1800 [facility] Stop: 04/20/22 16:27 Last Admin: 04/19/22 21:01 Dose: 45 mls/hr Documented By: COLOShereen Dextrose/Lactated Ringer's (D5lr) 1,000 mls @ 50 mls/hr IVCONT .Q20H [facility] Last Admin: 04/20/22 07:52 Dose: 50 mls/hr Documented By: LEXUS Multivitamins 10 ml/ Trace Metals 1 ml/ Amino Acids/Electrolytes 1,011 mls @ 45 mls/hr IV DAILY@1800 [facility] Stop: 04/21/22 16:27 Insulin Human Lispro (Insulin Lispro 100 Unit/Ml 3 Ml Vial) 0 unit SUBCUT QIDACHS [facility]; Protocol Last Admin: 04/20/22 12:44 Dose: 4 unit Documented By: LEXUS Midodrine (Midodrine Hcl 5 Mg Tablet) 5 mg PO TID [facility] Last Admin: 04/20/22 12:44 Dose: 5 mg Documented By: LEXUS Nicotine (Nicotine 21 Mg Patch.Td24) 21 mg TRANSDERMA DAILY [facility] Last Admin: 04/20/22 07:57 Dose: 21 mg Documented By: LEXUS Ondansetron HCl (Ondansetron Hcl 4 Mg/2 Ml Vial) 4 mg IVPUSH Q8H PRN PRN Reason: Nausea and Vomiting Pharmacy Consult (Consult Rx Perform Med Rec) 1 each MISCELLANE ONCE PRN PRN Reason: Consult order Sodium Bicarbonate (Sodium Bicarbonate 650 Mg Tablet) 650 mg PO QID [facility] Last Admin: 04/20/22 12:44 Dose: 650 mg Documented By: LEXUS Sodium Chloride (0.9 % Sodium Chloride Flush 3 Ml Syringe) 3 ml IVFLUSH QSHIFT [facility] Last Admin: 04/20/22 12:45 Dose: Not Given Documented By: LEXUS Non-Admin Reason: IV Running Trimethoprim/Sulfamethoxazole (Sulfamethox/Trimeth 800/160 Tablet) 1 tab PO Q1 2H [facility] Last Admin: 04/20/22 06:09 Dose: 1 tab Documented By: YOSI Labs CBC & Chem 7: 04/19/22 06:07 04/20/22 05:51 Labs: Laboratory Results - last 24 hr 04/19/22 04/19/22 04/19/22 15:42 15:59 16:42 Anion Gap Estim Creat Clear Calc Estimated GFR POC Glucose 50 L* 66 117 H Random Glucose Calcium Phosphorus Magnesium Albumin Triglycerides 04/19/22 04/20/22 04/20/22 19:45 05:51 07:10 Anion Gap 10 L Estim Creat Clear Calc 30.7 Estimated GFR 50 POC Glucose 100 102 Random Glucose 111 Calcium 8.5 Phosphorus 2.9 Magnesium 1.8 Albumin 2.8 L Triglycerides 15 04/20/22 11:11 Anion Gap Estim Creat Clear Calc Estimated GFR POC Glucose 238 H Random Glucose Calcium Phosphorus Magnesium Albumin Triglycerides Assessment and Plan (1) Acute kidney injury: Status: Acute (2) Pancytopenia: Status: Acute (3) Paraphimosis: Status: Acute Plan A 56-year-old male with a past medical history of HIV come presents to the hospital after a neighbor was concerned that the patient was not taking care of himself, the patient was found to be significantly dehydrated--Clincal presentation consistent with advanced AIDS 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 If changes persist consider workup for primary brain malignancy Brain hemorrhage seen by Neurology, can be seen with toxoplasmosis -avoid blood thinners HIV/AIDS complex Likely not compliant with treatment CD4 count--54 - MRI of head with finding concerning for Toxo--as above -restarted on Bictarvy -Mepron for PCP prophylaxis KATHERINE/metabolic acidosis likely d/t prerenal state-improved likely secondary to dehydration s/p IVF -renal following -continue sodium bicarbonate Hypotension. not r/t sepsis Blood pressure continues to be low Patient asymptomatic Continue midodrine Consider Florinef if BP continues to be low Adult failure to thrive Severe protein calorie malnutrition likely in the setting of HIV, history of hep C infection as well as IV drug use seen by nutrition s/p speech eval, wnl, continue regular diet -? PICC line placed for PPN - discussed with Nutrition, they recommend patient be eating 50% of meals or greater consistently before discontinuing PPN Pancytopenia Chronic follow CBC Urinary retention Vera in place, voiding trial Seen by Urology, started on Cardura Given persistent low blood pressure, Cardura stopped DM Metformin, insulin on hold -SSI - diabetic diet Tobacco dependence Smoking cessation advised NRT DVT ppx: heparin d/c in ICU due to bleeding seen on brain imaging; mechanical devices attending - dr. Marinelli Need for inpatient: management with KATHERINE, toxoplasmosis CM working on safe dispo [facility] HCP Quality Stroke Does the patient have a stroke diagnosis?: No VTE Prior VTE?: No VTE Risk Level:: Medical - moderate - high VTE Device Contraindication: Treatment Not Indicated VTE Drug Contraindication: N/A - Med Ordered
--- NOTE | 2022-04-20 14:19 | PM.IDPN ---
Subjective Subjective Date of Service: 04/20/22 Interval History: he is now apparently full treatment and is getting PICC line for IV nutrition Critical Care Time (minutes): 15 Objective Data Labs CBC & Chem 7: 04/19/22 06:07 04/20/22 05:51 Labs: Laboratory Results - last 24 hr 04/19/22 04/19/22 04/19/22 15:42 15:59 16:42 Sodium Potassium Chloride Carbon Dioxide Anion Gap BUN Creatinine Estim Creat Clear Calc Estimated GFR POC Glucose 50 L* 66 117 H Random Glucose Calcium Phosphorus Magnesium Albumin Triglycerides 04/19/22 04/20/22 04/20/22 19:45 05:51 07:10 Sodium 137 Potassium 5.1 Chloride 112 H Carbon Dioxide 20 L Anion Gap 10 L BUN 26 H Creatinine 1.46 H Estim Creat Clear Calc 30.7 Estimated GFR 50 POC Glucose 100 102 Random Glucose 111 Calcium 8.5 Phosphorus 2.9 Magnesium 1.8 Albumin 2.8 L Triglycerides 15 04/20/22 11:11 Sodium Potassium Chloride Carbon Dioxide Anion Gap BUN Creatinine Estim Creat Clear Calc Estimated GFR POC Glucose 238 H Random Glucose Calcium Phosphorus Magnesium Albumin Triglycerides Microbiology Microbiology Results: Microbiology 04/13/22 03:51 Blood - Venous Blood Culture - Final No growth after 5 days. 04/13/22 03:51 Blood - Venous Blood Culture - Final No growth after 5 days. 04/10/22 20:00 Urine clean catch - Urine hardin top Urine Culture - Final Physical Exam Vital Signs: Vital Signs: Last Vital Signs Temp 97.9 F 04/20/22 11:20 Pulse 78 04/20/22 11:20 Resp 16 04/20/22 11:20 BP 92/55 L 04/20/22 11:20 Pulse Ox 100 04/20/22 11:20 O2 Del Method 04/20/22 11:20 BMI result Body Mass Index 13.6 Const: General: ill appearing Nutritional Appearance: cachectic HEENT: Mouth: Normal oral and palatal mucosa present (thrush) Resp: Effort & Inspection: normal respiratory effort Cardio: Rate: regular rate Rhythm: regular rhythm GI: Palpation (GI): Soft to palpation and nontender Skin: General skin exam: no rashes or lesions noted Assessment and Plan Assessment and plan (1) Brain lesion: Status: Acute (2) AIDS: Problem details: probable toxoplasmosis brain uncontrolled AIDS,refusing medical care as outpatient Status: Acute (3) Thrush, oral: Status: Acute Plan IV Bactrim for 14 days rx toxoplasmosis probable CT scan toward end of therapy Continue Biktarvy Diflucan IV for thrush Time Spent With Patient Time: Total time spent is greater than 50% in coordination of care (as documented) at patient's floor/unit and/or counseling patient:
--- NOTE | 2022-04-20 14:51 | PC.NURSE ---
urinary retention, FC reinserted per Dr Levy, patient tolerated procedure well.
--- NOTE | 2022-04-20 15:54 | MHC.CM.PN ---
TODAY'S ATTEMPTS TO SECURE A HCP DOCUMENT HAVE BEEN UNSUCCESSFUL PATIENT HAVING BEY PLACED ON FIRST ATTEMPT AND ASLEEP ON SECOND. UPON NEXT VISIT TO ROOM, PATIENT STILL ASLEEP AND NOT RESPONDING TO THIS WATER RESTORATION TECHNICIAN'S VERBAL ATTEMPTS DOCUMENTATION LEFT WITH COVERING WEEKEND MANAGER ARCHITECTURE.
[2022-04-20 16:06] LABS: Glucose, Whole Blood 64 mg/dL (60-115)
[2022-04-20] MEDS: Fluconazole in NaCl,Iso-Osm 100 MG in Container,Empty 0 ML 50 MG IV (16:45)
[2022-04-20 17:10] LABS: Glucose, Whole Blood 121 mg/dL (60-115)
[2022-04-20] MEDS: Sulfamethoxazole/Trimethoprim 320 MG in Dextrose 5 % 500 ML 225 MG IV (17:38)
[2022-04-20 20:29] LABS: Glucose, Whole Blood 150 mg/dL (60-115)
[2022-04-21 03:58] VITALS: BP 108/42; PULSE 71; RESP 17; TEMP 36.2; O2SAT 97
[2022-04-21] MEDS: Sulfamethoxazole/Trimethoprim 320 MG in Dextrose 5 % 500 ML 225 MG IV ×2 (06:08→17:46)
[2022-04-21 06:49] LABS: Hematocrit 24.2 % (42.0-52.0); Mean Corpuscular HGB Conc 33.1 g/dl (31.0-36.0); Mean Corpuscular Hemoglobin 29.4 pg (27.0-33.0); Mean Platelet Volume 10.1 fL (9.4-12.4); Red Blood Count 2.72 X10*6/uL (4.60-5.80)
[2022-04-21 06:50] LABS: Platelet Count 54 X10*3/uL (160-400); White Blood Count 1.9 X10*3/uL (4.8-10.8)
[2022-04-21 07:14] LABS: Albumin Level 2.9 g/dL (3.5-5.0); Blood Urea Nitrogen 31 mg/dL (9-16); Calcium 8.7 mg/dL (8.4-10.2); Creatinine Clr Calc Pharmacy 30.3; Estimated Glomerular Filt Rate 49; Glucose Random 108 mg/dL (60-115); Magnesium 1.7 mg/dL (1.6-2.6); Triglycerides 13 mg/dL
[2022-04-21 07:25] VITALS: BP 107/63; PULSE 77; RESP 16; TEMP 36.8; O2SAT 100
[2022-04-21 07:33] LABS: Glucose, Whole Blood 200 mg/dL (60-115)
[2022-04-21 07:43] LABS: Anion Gap 12 (12-20); Carbon Dioxide 18 mmol/L (22-29); Chloride 108 mmol/L (96-108); Potassium 5.7 mmol/L (3.3-5.1); Sodium 132 mmol/L (135-145)
[2022-04-21 07:53] LABS: Iron 68 mcg/dL (45-160); Percent Iron Saturation 35 % (15-50); Total Iron Binding Capacity 192 mcg/dL (228-428); Unsaturated Iron Binding 124 ug/dL
[2022-04-21] MEDS: Sodium Bicarbonate 650 MG TABLET PO ×4 (07:56→20:45)
[2022-04-21] MEDS: Bictegrav/Emtricit/Tenofov Ala TABLET 1 TAB PO (07:56)
[2022-04-21] MEDS: Insulin Lispro 100 UNIT/ML 3 ML VIAL SUBCUT ×2 (07:56→20:45)
[2022-04-21] MEDS: Midodrine HCl 5 MG TABLET PO ×3 (07:56→20:45)
[2022-04-21] MEDS: Nicotine 21 MG PATCH.TD24 TRANSDERMA (07:57)
[2022-04-21 08:13] LABS: Ferritin 395 ng/mL (20-250)
[2022-04-21] MEDS: Sodium Zirconium Cyclosilicate 10 GM POWD.PACK PO (09:49)
[2022-04-21] MEDS: 0.9 % Sodium Chloride 1,000 ML 75 ML IVCONT ×2 (09:51→23:17)
--- NOTE | 2022-04-21 10:51 | HO.PM.IMPN ---
Subjective Subjective Date of Service: 04/21/22 Interval History: seen and examined this morning follow up for nutrition, toxoplasmosis patient reports feeling weak, not feeling well this morning does not feel like eating much no chest pain, chest pain, abdominal pain Review of Systems Review of Systems: Yes all other systems are reviewed and are negative Constitutional Constitutional: Denies chills and Denies fever(s) Cardiovascular Cardiovascular: Denies chest pain, Denies palpitations and Denies dyspnea Respiratory Respiratory: Denies cough and Denies dyspnea Endocrine Endocrine: Denies palpitations Physical Exam Vital Signs: Vital Signs: Last Vital Signs Temp 98.2 F 04/21/22 07:25 Pulse 77 04/21/22 07:25 Resp 16 04/21/22 07:25 BP 107/63 04/21/22 07:25 Pulse Ox 100 04/21/22 07:25 O2 Del Method 04/21/22 07:25 BMI result Body Mass Index 13.6 Const: Other: bitemporal wasting General: cooperative, comfortable, alert, awake and ill appearing Nutritional Appearance: cachectic and malnourished Orientation/consciousness: oriented to person and oriented to place Resp: Effort & Inspection: normal respiratory effort and able to speak in complete sentences Cardio: Rate: regular rate Heart sounds: S1 normal heart sound present and S2 normal heart sound present GI: Inspection: No distended Palpation (GI): Soft to palpation : Other: mojica in place draining clear yellow urine Neuro: General: oriented to person and oriented to place Extrem: General: Yes no pedal edema Objective Data Active Medications Acetaminophen (Acetaminophen 325 Mg Tablet) 650 mg PO Q6H PRN PRN Reason: Pain, Mild (Pain Scale 1-3) Last Admin: 04/19/22 09:00 Dose: 650 mg Documented By: JOANN Bictegravir/Emtricitabine/Tenofovir (Bictegrav/Emtricit/Tenofov Ala Tablet) 1 tab PO DAILY TOMY Last Admin: 04/21/22 07:56 Dose: 1 tab Documented By: COTEMA Dextrose (Dextrose 50 % 25 Gm/50 Ml Syringe) 25 gm IVPUSH Q15M PRN; Protocol PRN Reason: per Hypoglycemia Standing Ord. Doxazosin Mesylate (Doxazosin Mesylate 2 Mg Tablet) 4 mg PO BEDTIME TOMY; Protocol Last Admin: 04/17/22 21:59 Dose: Not Given Documented By: IRVING Non-Admin Reason: low BP Glucose (Glucose Gel 15 Gm Gel..Gram.) 15 gm PO Q15M PRN; Protocol PRN Reason: per Hypoglycemia Standing Ord. Multivitamins 10 ml/ Trace Metals 1 ml/ Amino Acids/Electrolytes 1,011 mls @ 45 mls/hr IV DAILY@1800 [facility] Stop: 04/21/22 16:27 Last Admin: 04/20/22 17:38 Dose: 45 mls/hr Documented By: LEXUS Fluconazole 100 mg/ IV (Miscellaneous Supplies) 50 mls @ 50 mls/hr IV Q24H [facility] Last Infusion: 04/20/22 17:49 Dose: 0 mls/hr Documented By: LEXUS Trimethoprim/Sulfamethoxazole (320 mg/ Dextrose) 520 mls @ 225 mls/hr IV Q12H [facility] Last Infusion: 04/21/22 08:58 Dose: 0 mls/hr Documented By: JOO Sodium Chloride (Ns) 1,000 mls @ 75 mls/hr IVCONT .[id number] [facility] Last Admin: 04/21/22 09:51 Dose: 75 mls/hr Documented By: JOO Insulin Human Lispro (Insulin Lispro 100 Unit/Ml 3 Ml Vial) 0 unit SUBCUT QIDACHS [facility]; Protocol Last Admin: 04/21/22 07:56 Dose: 2 unit Documented By: JOO Midodrine (Midodrine Hcl 5 Mg Tablet) 5 mg PO TID [facility] Last Admin: 04/21/22 07:56 Dose: 5 mg Documented By: JOO Nicotine (Nicotine 21 Mg Patch.Td24) 21 mg TRANSDERMA DAILY [facility] Last Admin: 04/21/22 07:57 Dose: 21 mg Documented By: JOO Ondansetron HCl (Ondansetron Hcl 4 Mg/2 Ml Vial) 4 mg IVPUSH Q8H PRN PRN Reason: Nausea and Vomiting Pharmacy Consult (Consult Rx Perform Med Rec) 1 each MISCELLANE ONCE PRN PRN Reason: Consult order Sodium Bicarbonate (Sodium Bicarbonate 650 Mg Tablet) 650 mg PO QID [facility] Last Admin: 04/21/22 07:56 Dose: 650 mg Documented By: JOO Sodium Chloride (0.9 % Sodium Chloride Flush 3 Ml Syringe) 3 ml IVFLUSH QSHIFT [facility] Last Admin: 04/21/22 07:47 Dose: Not Given Documented By: JOO Non-Admin Reason: IV Running Labs CBC & Chem 7: 04/21/22 06:04 04/21/22 06:04 Labs: Laboratory Results - last 24 hr 04/20/22 04/20/22 04/20/22 11:11 16:00 17:06 MCV MCH MCHC RDW Plt Count MPV Absolute Nucleated RBC Nucleated RBC % (auto) Anion Gap Estim Creat Clear Calc Estimated GFR POC Glucose 238 H 64 121 H Random Glucose Calcium Phosphorus Magnesium Iron TIBC % Saturation Unsat Iron Binding Ferritin Albumin Triglycerides 04/20/22 04/21/22 04/21/22 20:20 06:04 06:04 MCV 89.0 MCH 29.4 MCHC 33.1 RDW 19.0 H Plt Count 54 L D MPV 10.1 Absolute Nucleated RBC 0.000 Nucleated RBC % (auto) 0.0 Anion Gap 12 Estim Creat Clear Calc 30.3 Estimated GFR 49 POC Glucose 150 H Random Glucose 108 Calcium 8.7 Phosphorus 3.0 Magnesium 1.7 Iron 68 TIBC 192 L % Saturation 35 Unsat Iron Binding 124 Ferritin 395 H Albumin 2.9 L Triglycerides 13 04/21/22 07:28 MCV MCH MCHC RDW Plt Count MPV Absolute Nucleated RBC Nucleated RBC % (auto) Anion Gap Estim Creat Clear Calc Estimated GFR POC Glucose 200 H Random Glucose Calcium Phosphorus Magnesium Iron TIBC % Saturation Unsat Iron Binding Ferritin Albumin Triglycerides Assessment and Plan (1) Acute kidney injury: Status: Acute (2) Pancytopenia: Status: Acute (3) Toxoplasmosis: Status: Acute Plan A 56-year-old male with a past medical history of HIV/AIDS , HCV, h/o substance abuse presents to the hospital after a neighbor was concerned that the patient was not taking care of himself, the patient was found to be significantly dehydrated--Clincal presentation consistent with advanced AIDS Hyperkalemia K 5.7 lokelma repeat labs this afternoon Follow BMP Hyponatremia resume IVF follow BMP Oral thrush IV fluconazole 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 If changes persist consider workup for primary brain malignancy Brain hemorrhage seen by Neurology, can be seen with toxoplasmosis -avoid blood thinners HIV/AIDS complex Likely not compliant with treatment CD4 count--54 -MRI of head with finding concerning for Toxo--as above -restarted on Bictarvy -Mepron for PCP prophylaxis KATHERINE/metabolic acidosis likely d/t prerenal state-improved. creatinine stable for multiple days, likely new baseline likely secondary to dehydration s/p IVF -renal following -continue sodium bicarbonate Hypotension. not r/t sepsis Blood pressure continues to be low Patient asymptomatic Continue midodrine Consider Florinef if BP continues to be low Adult failure to thrive Severe protein calorie malnutrition likely in the setting of HIV, history of hep C infection as well as IV drug use seen by nutrition s/p speech eval, wnl, continue regular diet -? PICC line placed for PPN - discussed with Nutrition, they recommend patient be eating 50% of meals or greater consistently before discontinuing PPN Pancytopenia Chronic, r/t underlying liver dz, severe illness, poor nutritional state b12, folate wnl no active bleeding noted, stool occult pending follow CBC Urinary retention failed voiding trial. mojica replaced 04/20. keep mojica in place Seen by Urology, started on Cardura Given persistent low blood pressure, Cardura stopped DM Metformin, insulin on hold -SSI - diabetic diet Tobacco dependence Smoking cessation advised NRT DVT ppx: heparin d/c in ICU due to bleeding seen on brain imaging; mechanical devices attending - dr. Lu Need for inpatient: management with KATHERINE, toxoplasmosis CM, toxoplasmosis working on safe dispo [place] following but needs PPN for few more days to attempt to boost nutritional status Given poor nutrional/functional status, multitude of medical issues, toxoplasmosis brain, AIDS, severe protein calorie malnutrition ex [employer] goals of care discussion was had with patient and his nurse with the use of a ping pong table assembler. At this point patient would like to change code status to DNR/DNI. He would like to continue to pursue medical treatment at this time. Patient does not seem to be making much improvement, would be appropriate for EXERCISE [employer] status, will likely need further discussion in coming days. Quality Stroke Does the patient have a stroke diagnosis?: No VTE Prior VTE?: No VTE Risk Level:: Medical - moderate - high VTE Device Contraindication: Treatment Not Indicated VTE Drug Contraindication: N/A - Med Ordered
[2022-04-21 11:24] VITALS: BP 88/54; PULSE 81; RESP 16; TEMP 36.5; O2SAT 99
[2022-04-21 11:24] LABS: Immature Retic Fraction 8.6 % (2.3-13.4); Retic HGB Equivalent 37.8 pg (30.0-35.0); Reticulocyte Percent 2.5 % (0.5-1.8); Reticulocytes Absolute 0.066 X10*6/uL (0.026-0.095)
[2022-04-21 11:40] LABS: Alanine Aminotransferase 16 U/L (0-40); Alkaline Phosphatase 100 U/L (39-117); Aspartate Amino Transferase 37 U/L (5-37); Bilirubin Direct 0.3 mg/dL (0.0-0.5); Bilirubin Total 0.8 mg/dL (0.0-1.0)
[2022-04-21 11:44] LABS: Glucose, Whole Blood 148 mg/dL (60-115)
[2022-04-21 15:24] LABS: OBS Int Ctl Valid YES; OBS1 NEGATIVE (NEGATIVE)
[2022-04-21 15:31] VITALS: BP 125/81; PULSE 92; RESP 20; TEMP 36.4; O2SAT 100
[2022-04-21 15:38] LABS: Potassium 5.2 mmol/L (3.3-5.1)
[2022-04-21] MEDS: Fluconazole in NaCl,Iso-Osm 100 MG in Container,Empty 0 ML 50 MG IV (16:17)
[2022-04-21 16:44] LABS: Glucose, Whole Blood 110 mg/dL (60-115)
[2022-04-21 19:54] LABS: Glucose, Whole Blood 164 mg/dL (60-115)
[2022-04-22] VITALS (7 sets, daily range): BP systolic 94–119; BP diastolic 50–65; PULSE 75–91; RESP 14–18; TEMP 36.2–36.9; O2SAT 100
[2022-04-22] MEDS: Sulfamethoxazole/Trimethoprim 320 MG in Dextrose 5 % 500 ML 225 MG IV ×2 (05:02→17:39)
[2022-04-22 06:40] LABS: MANUAL DIFF FLAG NO
[2022-04-22 06:47] LABS: Eosinophils Percent Auto 1.7 % (0-4); Hematocrit 22.2 % (42.0-52.0); Hemoglobin 7.6 g/dl (14.0-18.0); Imm Gran Abs Auto 0.08 X10*3/uL (0.00-0.03); Imm Gran Pct Auto 4.5 % (0.0-0.4); Lymphocytes Absolute Auto 0.6 X10*3/uL (1.2-4.9); Lymphocytes Percent Auto 32.6 % (20-40); Mean Corpuscular HGB Conc 34.2 g/dl (31.0-36.0); Mean Corpuscular Hemoglobin 29.9 pg (27.0-33.0); Mean Corpuscular Volume 87.4 fL (80.0-98.0); Mean Platelet Volume 10.4 fL (9.4-12.4); Monocytes Absolute Auto 0.2 X10*3/uL (0.1-1.2); Monocytes Percent Auto 8.4 % (2-11); Neutrophils Absolute Auto 0.9 x10*3/uL (2.0-8.3); Neutrophils Percent Auto 52.8 % (45-73); Platelet Count 54 X10*3/uL (160-400); Red Blood Count 2.54 X10*6/uL (4.60-5.80); Red Cell Distribution Width 18.8 % (11.0-16.0); SCAN SMEAR FLAG 1; White Blood Count 1.8 X10*3/uL (4.8-10.8)
[2022-04-22 07:32] LABS: Albumin Level 2.7 g/dL (3.5-5.0); Anion Gap 10 (12-20); Blood Urea Nitrogen 28 mg/dL (9-16); Calcium 8.3 mg/dL (8.4-10.2); Carbon Dioxide 17 mmol/L (22-29); Chloride 104 mmol/L (96-108); Creatinine Clr Calc Pharmacy 29.7; Estimated Glomerular Filt Rate 48; Glucose Random 128 mg/dL (60-115); Magnesium 1.5 mg/dL (1.6-2.6); Phosphorus 3.5 mg/dL (2.7-4.5); Potassium 5.4 mmol/L (3.3-5.1); Sodium 126 mmol/L (135-145); Triglycerides 9 mg/dL
[2022-04-22 07:40] LABS: Glucose, Whole Blood 135 mg/dL (60-115)
[2022-04-22] MEDS: Nicotine 21 MG PATCH.TD24 TRANSDERMA (09:14)
[2022-04-22] MEDS: Magnesium Sulfate/D5W 1 GM/100 ML PIGGYBACK IV (09:15)
[2022-04-22] MEDS: Sodium Bicarbonate 650 MG TABLET PO ×4 (09:15→21:41)
[2022-04-22] MEDS: Bictegrav/Emtricit/Tenofov Ala TABLET 1 TAB PO (09:15)
[2022-04-22] MEDS: Midodrine HCl 5 MG TABLET PO ×3 (09:15→21:41)
--- NOTE | 2022-04-22 11:20 | HO.PM.IMPN ---
Subjective Subjective Date of Service: 04/22/22 Interval History: Seen and examined this morning Follow-up for severe protein calorie malnutrition, toxoplasmosis, AIDS patient feeling weak, not interested in eating this morning no pain, no shortness of breath; always cold, no fever Review of Systems Review of Systems: Yes all other systems are reviewed and are negative Constitutional Constitutional: Denies fever(s) and Reports weakness Cardiovascular Cardiovascular: Denies chest pain, Denies palpitations and Denies dyspnea Respiratory Respiratory: Denies cough and Denies dyspnea Gastrointestinal Gastrointestinal: Denies abdominal pain, Denies nausea and Denies vomiting Neurologic Neurologic: Reports weakness Endocrine Endocrine: Denies palpitations Physical Exam Vital Signs: Vital Signs: Last Vital Signs Temp 98.4 F 04/22/22 07:12 Pulse 80 04/22/22 07:12 Resp 16 04/22/22 07:12 BP 98/55 L 04/22/22 07:12 Pulse Ox 100 04/22/22 07:12 O2 Del Method 04/22/22 07:12 BMI result Body Mass Index 13.6 Const: Other: bitemporal wasting General: cooperative, comfortable, alert, awake and ill appearing Nutritional Appearance: cachectic and malnourished Orientation/consciousness: oriented to person and oriented to place Resp: Effort & Inspection: normal respiratory effort and able to speak in complete sentences Cardio: Rate: regular rate Heart sounds: S1 normal heart sound present and S2 normal heart sound present GI: Inspection: No distended Palpation (GI): Soft to palpation and nontender : Other: mojica in place draining clear yellow urine Neuro: General: oriented to person and oriented to place Extrem: General: Yes no pedal edema Objective Data Active Medications Acetaminophen (Acetaminophen 325 Mg Tablet) 650 mg PO Q6H PRN PRN Reason: Pain, Mild (Pain Scale 1-3) Last Admin: 04/19/22 09:00 Dose: 650 mg Documented By: JOANN Bictegravir/Emtricitabine/Tenofovir (Bictegrav/Emtricit/Tenofov Ala Tablet) 1 tab PO DAILY TOMY Last Admin: 04/22/22 09:15 Dose: 1 tab Documented By: COTEMA Dextrose (Dextrose 50 % 25 Gm/50 Ml Syringe) 25 gm IVPUSH Q15M PRN; Protocol PRN Reason: per Hypoglycemia Standing Ord. Doxazosin Mesylate (Doxazosin Mesylate 2 Mg Tablet) 4 mg PO BEDTIME [facility]; Protocol Last Admin: 04/17/22 21:59 Dose: Not Given Documented By: IRVING Non-Admin Reason: low BP Glucose (Glucose Gel 15 Gm Gel..Gram.) 15 gm PO Q15M PRN; Protocol PRN Reason: per Hypoglycemia Standing Ord. Fluconazole 100 mg/ IV (Miscellaneous Supplies) 50 mls @ 50 mls/hr IV Q24H [facility] Last Infusion: 04/21/22 17:44 Dose: 0 mls/hr Documented By: COTEMA Trimethoprim/Sulfamethoxazole (320 mg/ Dextrose) 520 mls @ 225 mls/hr IV Q12H [facility] Last Infusion: 04/22/22 07:29 Dose: 0 mls/hr Documented By: MAYEMA Sodium Chloride 20 meq/Magnesium Sulfate 5 meq/Calcium Gluconate 4.65 meq/Sodium Phosphate 15 mmol/Multivitamins 10 ml/ Trace Metals 1 ml/ Amino Acids/Dextrose 1,032.25 mls @ 45 mls/hr IV DAILY@1800 [facility] Stop: 04/22/22 16:57 Last Admin: 04/21/22 17:47 Dose: 45 mls/hr Documented By: JOO Sodium Chloride 40 meq/Magnesium Sulfate 8 meq/Calcium Gluconate 4.65 meq/Sodium Phosphate 15 mmol/Multivitamins 10 ml/ Trace Metals 1 ml/ Amino Acids/Dextrose 1,038 mls @ 45 mls/hr IV DAILY@1800 [facility] Stop: 04/23/22 17:03 Insulin Human Lispro (Insulin Lispro 100 Unit/Ml 3 Ml Vial) 0 unit SUBCUT QIDACHS [facility]; Protocol Last Admin: 04/22/22 07:41 Dose: Not Given Documented By: JOO Non-Admin Reason: No Insulin Coverage Midodrine (Midodrine Hcl 5 Mg Tablet) 5 mg PO TID [facility] Last Admin: 04/22/22 09:15 Dose: 5 mg Documented By: JOO Nicotine (Nicotine 21 Mg Patch.Td24) 21 mg TRANSDERMA DAILY [facility] Last Admin: 04/22/22 09:14 Dose: 21 mg Documented By: JOO Ondansetron HCl (Ondansetron Hcl 4 Mg/2 Ml Vial) 4 mg IVPUSH Q8H PRN PRN Reason: Nausea and Vomiting Pharmacy Consult (Consult Rx Perform Med Rec) 1 each MISCELLANE ONCE PRN PRN Reason: Consult order Sodium Bicarbonate (Sodium Bicarbonate 650 Mg Tablet) 650 mg PO QID [facility] Last Admin: 04/22/22 09:15 Dose: 650 mg Documented By: JOO Sodium Chloride (0.9 % Sodium Chloride Flush 3 Ml Syringe) 3 ml IVFLUSH QSHIFT [facility] Last Admin: 04/22/22 07:32 Dose: Not Given Documented By: JOO Non-Admin Reason: IV Running Labs CBC & Chem 7: 04/22/22 06:00 04/22/22 06:00 Labs: Laboratory Results - last 24 hr 04/21/22 04/21/22 04/21/22 06:04 06:04 06:04 MCV MCH MCHC RDW Plt Count MPV Immature Gran % (Auto) Neut % (Auto) Lymph % (Auto) [place] % (Auto) Eos % (Auto) Baso % (Auto) Lymph # (Auto) [place] # (Auto) Eos # (Auto) Baso # (Auto) Abs Immat Gran (auto) Absolute Neuts (auto) Absolute Nucleated RBC Nucleated RBC % (auto) Absolute Retic 0.066 Cancelled Percent Retic 2.5 H Cancelled Immature Retic Fraction 8.6 Cancelled Retic Hgb Equivalent 37.8 H Cancelled Anion Gap Estim Creat Clear Calc Estimated GFR POC Glucose Random Glucose Calcium Phosphorus Magnesium Total Bilirubin 0.8 Direct Bilirubin 0.3 AST 37 D ALT 16 Alkaline Phosphatase 100 D Total Protein 7.0 Albumin Triglycerides Stool Occult Blood 04/21/22 04/21/22 04/21/22 11:27 15:34 19:34 MCV MCH MCHC RDW Plt Count MPV Immature Gran % (Auto) Neut % (Auto) Lymph % (Auto) [place] % (Auto) Eos % (Auto) Baso % (Auto) Lymph # (Auto) [place] # (Auto) Eos # (Auto) Baso # (Auto) Abs Immat Gran (auto) Absolute Neuts (auto) Absolute Nucleated RBC Nucleated RBC % (auto) Absolute Retic Percent Retic Immature Retic Fraction Retic Hgb Equivalent Anion Gap Estim Creat Clear Calc Estimated GFR POC Glucose 148 H 110 164 H Random Glucose Calcium Phosphorus Magnesium Total Bilirubin Direct Bilirubin AST ALT Alkaline Phosphatase Total Protein Albumin Triglycerides Stool Occult Blood 04/21/22 04/22/22 04/22/22 Unknown 06:00 06:00 MCV 87.4 MCH 29.9 MCHC 34.2 RDW 18.8 H Plt Count 54 L MPV 10.4 Immature Gran % (Auto) 4.5 H Neut % (Auto) 52.8 Lymph % (Auto) 32.6 [place] % (Auto) 8.4 Eos % (Auto) 1.7 Baso % (Auto) 0.0 Lymph # (Auto) 0.6 L [place] # (Auto) 0.2 Eos # (Auto) 0.0 Baso # (Auto) 0.0 Abs Immat Gran (auto) 0.08 H Absolute Neuts (auto) 0.9 L Absolute Nucleated RBC 0.000 Nucleated RBC % (auto) 0.0 Absolute Retic Percent Retic Immature Retic Fraction Retic Hgb Equivalent Anion Gap 10 L Estim Creat Clear Calc 29.7 Estimated GFR 48 POC Glucose Random Glucose 128 H Calcium 8.3 L Phosphorus 3.5 Magnesium 1.5 L Total Bilirubin Direct Bilirubin AST ALT Alkaline Phosphatase Total Protein Albumin 2.7 L Triglycerides 9 Stool Occult Blood NEGATIVE 04/22/22 07:16 MCV MCH MCHC RDW Plt Count MPV Immature Gran % (Auto) Neut % (Auto) Lymph % (Auto) [place] % (Auto) Eos % (Auto) Baso % (Auto) Lymph # (Auto) [place] # (Auto) Eos # (Auto) Baso # (Auto) Abs Immat Gran (auto) Absolute Neuts (auto) Absolute Nucleated RBC Nucleated RBC % (auto) Absolute Retic Percent Retic Immature Retic Fraction Retic Hgb Equivalent Anion Gap Estim Creat Clear Calc Estimated GFR POC Glucose 135 H Random Glucose Calcium Phosphorus Magnesium Total Bilirubin Direct Bilirubin AST ALT Alkaline Phosphatase Total Protein Albumin Triglycerides Stool Occult Blood Assessment and Plan (1) Hyponatremia: Status: Acute (2) Hyperkalemia: Status: Acute (3) Toxoplasmosis: Status: Acute (4) Acute kidney injury: Status: Acute (5) Pancytopenia: Status: Acute (6) Metabolic acidosis with normal anion gap and bicarbonate losses: Status: Acute Plan A 56-year-old male with a past medical history of HIV/AIDS , HCV, h/o substance abuse presents to the hospital after a neighbor was concerned that the patient was not taking care of himself, the patient was found to be significantly dehydrated--Clincal presentation consistent with advanced AIDS Hyperkalemia K 5.4 this am will give another dose of lokelma adjust PPN Follow BMP Hyponatremia adjust PPN d/c IVF follow BMP urine studies Oral thrush Continue IV fluconazole 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 If changes persist consider workup for primary brain malignancy Brain hemorrhage seen by Neurology, can be seen with toxoplasmosis -avoid blood thinners HIV/AIDS complex Likely not compliant with treatment CD4 count--54 -MRI of head with finding concerning for Toxo--as above -restarted on Bictarvy -Mepron for PCP prophylaxis KATHERINE/metabolic acidosis likely d/t prerenal state-improved from admission creatinine stable for multiple days, likely new baseline -renal following - further work up ordered -continue sodium bicarbonate Hypotension. not r/t sepsis Blood pressure continues to be low Patient asymptomatic Continue midodrine Consider Florinef if BP continues to be low rule out adrenal insuf, cortisol pending Adult failure to thrive Severe protein calorie malnutrition likely in the setting of HIV, history of hep C infection as well as IV drug use seen by nutrition s/p speech eval, wnl, continue regular diet -? PICC line placed for PPN - discussed with Nutrition, they recommend patient be eating 50% of meals or greater consistently before discontinuing PPN Pancytopenia Chronic, r/t underlying liver dz, severe illness, poor nutritional state b12, folate wnl, iron studies c/w chronic inflammation no active bleeding noted, stool occult pending H/H trending down,consider transfusion if drops further Urinary retention failed voiding trial. mojica replaced 04/20. keep mojica in place Seen by Urology, started on Cardura Given persistent low blood pressure, Cardura stopped DM Metformin, insulin on hold -SSI - diabetic diet Tobacco dependence Smoking cessation advised NRT DVT ppx: heparin d/c in ICU due to bleeding seen on brain imaging; mechanical devices attending - dr. Lu Need for inpatient: management with KATHERINE, toxoplasmosis CM, toxoplasmosis working on safe dispo [facility] following but needs PPN for few more days to attempt to boost nutritional status Given poor nutrional/functional status, multitude of medical issues, toxoplasmosis brain, AIDS, severe protein calorie malnutrition ex [employer] goals of care discussion was had with patient and his nurse with the use of a motor vehicle parts interpreter. At this point patient would like to change code status to DNR/DNI. He would like to continue to pursue medical treatment at this time. Patient does not seem to be making much improvement, would be appropriate for [employer] status, will likely need further discussion in coming days. Quality Stroke Does the patient have a stroke diagnosis?: No VTE Prior VTE?: No VTE Risk Level:: Medical - moderate - high VTE Device Contraindication: Treatment Not Indicated VTE Drug Contraindication: N/A - Med Ordered
[2022-04-22 11:42] LABS: Glucose, Whole Blood 88 mg/dL (60-115)
--- NOTE | 2022-04-22 11:48 | P.PNNP_ITS ---
Subjective Subjective Date of Service: 04/22/22 Interval history: Seen and examined this morning Follow-up for KATHERINE and now hyponatremia, hyperkalemia and metabolic acidosis; severe protein calorie malnutrition, toxoplasmosis, AIDS patient feeling weak, not interested in eating Physical Exam Vital Signs: Vital Signs: Last Vital Signs Temp 98.3 F 04/22/22 11:43 Pulse 80 04/22/22 11:43 Resp 16 04/22/22 11:43 BP 105/58 L 04/22/22 11:43 Pulse Ox 100 04/22/22 11:43 O2 Del Method 04/22/22 11:43 BMI result Body Mass Index 13.6 Const: Other: bitemporal wasting General: cooperative, healthy appearing, comfortable, no acute distress, alert, awake and ill appearing Nutritional Appearance: cachectic and malnourished Orientation/consciousness: oriented to person, oriented to place and patient oriented x3 HEENT: Other: bitemporal wasting Head: Yes normocephalic and Yes atraumatic Ears: external ears normal General nose exam: Normal external nose present Face and sinus: Yes normal facial exam Mouth: Normal oral and palatal mucosa present (thrush), moist mucous membranes and other ( very dry mucous membranes) Eyes: General: appearance normal, both eyes and all related structures Corneas: corneas abnormal (left opacification cornea) Pupils: Equal, round and reactive pupils present EOM: EOMs intact bilaterally Neck: Neck: Yes normal visual inspection, Yes full ROM, Yes no lymphadenopathy, Yes trachea midline, Yes supple and Yes no JVD Chest: Chest palpation & inspection: normal inspection of the chest and normal palpation of entire chest wall Resp: Effort & Inspection: normal respiratory effort, able to speak in complete sentences and no respiratory distress Auscultation: clear to auscultation bilaterally and diminished lung sounds Cardio: Jugular venous distension: no JVD Palpation: no palpable S3 Rate: regular rate Rhythm: regular rhythm Heart sounds: S1 normal heart sound present, S2 normal heart sound present, no murmurs and no rubs GI: Inspection: Yes normal to inspection and No distended Palpation (GI): Soft to palpation, nontender and no guarding Auscultation: normal bowel sounds : Other: mojica in place draining clear yellow urine General: Yes no CVA tenderness Back/Spine/Pelvis: Back: no CVA tenderness Cervical Spine: normal cervical lordosis Thoracic/Lumbar Spine: thoracic and lumbar spine normal to inspection Skin: Other: Significant dehydration General skin exam: no rashes or lesions noted Neuro: Other: He is alert and awake with normal spontaneity and fluency of speech. He is able to comprehend and answer simple questions and follow simple commands. He denied having any headache or discomfort. He seemed to have lost significant weight. Oral hygiene was poor and most teeth were missing. Visual ford on threat were okay. Face was symmetrical. There was no obvious focal arm or leg weakness. Deep tendon reflexes were absent with flexor plantars. General: oriented to person, oriented to place, patient oriented x3, tone normal, moves all extremities and no focal motor deficits Cranial nerves: Yes CN's II-XII intact bilaterally and Yes Equal, round and reactive pupils present Cognition (Neuro): normal cognition Motor exam (neuro): 5/5 motor strength present t hroughout and no asterixis Extrem: General: Yes normal to inspection, Yes capillary refill normal, Yes no clubbing, cyanosis or edema and Yes no pedal edema Objective Data Labs CBC & Chem 7: 04/22/22 06:00 04/22/22 06:00 Labs: Laboratory Results - last 24 hr 04/21/22 04/21/22 04/21/22 14:51 15:34 19:34 WBC RBC Hgb Hct MCV MCH MCHC RDW Plt Count MPV Immature Gran % (Auto) Neut % (Auto) Lymph % (Auto) Bollinger % (Auto) Eos % (Auto) Baso % (Auto) Lymph # (Auto) Bollinger # (Auto) Eos # (Auto) Baso # (Auto) Abs Immat Gran (auto) Absolute Neuts (auto) Absolute Nucleated RBC Nucleated RBC % (auto) Sodium Potassium 5.2 H Chloride Carbon Dioxide Anion Gap BUN Creatinine Estim Creat Clear Calc Estimated GFR POC Glucose 110 164 H Random Glucose Calcium Phosphorus Magnesium Albumin Triglycerides Stool Occult Blood 04/21/22 04/22/22 04/22/22 Unknown 06:00 06:00 WBC 1.8 L RBC 2.54 L Hgb 7.6 L Hct 22.2 L MCV 87.4 MCH 29.9 MCHC 34.2 RDW 18.8 H Plt Count 54 L MPV 10.4 Immature Gran % (Auto) 4.5 H Neut % (Auto) 52.8 Lymph % (Auto) 32.6 Bollinger % (Auto) 8.4 Eos % (Auto) 1.7 Baso % (Auto) 0.0 Lymph # (Auto) 0.6 L Bollinger # (Auto) 0.2 Eos # (Auto) 0.0 Baso # (Auto) 0.0 Abs Immat Gran (auto) 0.08 H Absolute Neuts (auto) 0.9 L Absolute Nucleated RBC 0.000 Nucleated RBC % (auto) 0.0 Sodium 126 L Potassium 5.4 H Chloride 104 Carbon Dioxide 17 L Anion Gap 10 L BUN 28 H Creatinine 1.51 H Estim Creat Clear Calc 29.7 Estimated GFR 48 POC Glucose Random Glucose 128 H Calcium 8.3 L Phosphorus 3.5 Magnesium 1.5 L Albumin 2.7 L Triglycerides 9 Stool Occult Blood NEGATIVE 04/22/22 04/22/22 07:16 11:12 WBC RBC Hgb Hct MCV MCH MCHC RDW Plt Count MPV Immature Gran % (Auto) Neut % (Auto) Lymph % (Auto) Bollinger % (Auto) Eos % (Auto) Baso % (Auto) Lymph # (Auto) Bollinger # (Auto) Eos # (Auto) Baso # (Auto) Abs Immat Gran (auto) Absolute Neuts (auto) Absolute Nucleated RBC Nucleated RBC % (auto) Sodium Potassium Chloride Carbon Dioxide Anion Gap BUN Creatinine Estim Creat Clear Calc Estimated GFR POC Glucose 135 H 88 Random Glucose Calcium Phosphorus Magnesium Albumin Triglycerides Stool Occult Blood Microbiology Microbiology Results: Microbiology 04/13/22 03:51 Blood - Venous Blood Culture - Final No growth after 5 days. 04/13/22 03:51 Blood - Venous Blood Culture - Final No growth after 5 days. 04/10/22 20:00 Urine clean catch - Urine hardin top Urine Culture - Final Procedures Date of Service Date of Service: 04/22/22 Assessment & Plan Assessment and plan (1) Acute kidney injury: Status: Acute Assessment and Plan: KATHERINE is multifactorial-creat 1.5; ua with pyuria and hematuria raising question of GN or AIN. Creat stable; check C3 and C4, IgA level, immunofixation; up/creat. Could have HIVAN or cryoglobulinemia. (2) Hyperkalemia: Status: Acute Assessment and Plan: No potassium in [place]; rule out adrenal insufficiency with am cortisol, increase sodium in TPN for increase distal tubular delivery of sodium to enhance kaliuresis (3) Hyponatremia: Status: Acute Assessment and Plan: New; on hypotonic TPN, will check urine osm, sodium and serum osm; increase sodium in TPN to at least 80 meq/L; also change sodium chloride to sodium acetate to correct acidosis (4) Metabolic acidosis with normal anion gap and bicarbonate losses: Status: Acute Assessment and Plan: Change sodium chloride to sodium acetate in the TPN; likely due to intrinisive renal process, AIN or ATN or GN Plan A 56-year-old male with a past medical history of HIV/AIDS , HCV, h/o substance abuse presents to the hospital after a neighbor was concerned that the patient was not taking care of himself, the patient was found to be significantly dehydrated--Clincal presentation consistent with advanced AIDS. Has KATHERINE, hyperkalemia and now hyponatremia and metabolic acidosis. Recommend: Rule out adrenal insufficiency with am cortisol and aldosterone level Increase sodium in PPN to max allowed and give as sodium acetate to correct acidosis: may need TPN Urine osm, sodium and k UP/creat C3 and C4 and IgA level Time Spent With Patient Time: Total time spent is greater than 50% in coordination of care (as documented) at patient's floor/unit and/or counseling patient: Progress Note: Quality Stroke Does the patient have a stroke diagnosis?: No
[2022-04-22] MEDS: Sodium Zirconium Cyclosilicate 10 GM POWD.PACK PO (12:49)
[2022-04-22 13:41] LABS: Potassium Urine Random 11.3 mmol/L
[2022-04-22 13:52] LABS: Cortisol Random 9.2 ug/dL
[2022-04-22 14:04] LABS: Osmolality Urine 370 mosm/kg (373-1093)
[2022-04-22] MEDS: Fluconazole in NaCl,Iso-Osm 100 MG in Container,Empty 0 ML 50 MG IV (16:17)
[2022-04-22 16:50] LABS: Glucose, Whole Blood 112 mg/dL (60-115)
[2022-04-22 17:26] LABS: Glucose, Whole Blood 109 mg/dL (60-115)
[2022-04-22 19:41] LABS: Glucose, Whole Blood 150 mg/dL (60-115)
[2022-04-23 04:00] VITALS: BP 96/51; PULSE 78; RESP 18; TEMP 36.8; O2SAT 99
[2022-04-23] MEDS: Sulfamethoxazole/Trimethoprim 320 MG in Dextrose 5 % 500 ML 225 MG IV ×2 (05:00→17:41)
[2022-04-23 06:29] LABS: Hemoglobin 7.5 g/dl (14.0-18.0); Mean Corpuscular Volume 87.4 fL (80.0-98.0); PLT CLUMP 1
[2022-04-23 06:31] LABS: Hematocrit 22.1 % (42.0-52.0); Mean Corpuscular HGB Conc 33.9 g/dl (31.0-36.0); Mean Corpuscular Hemoglobin 29.6 pg (27.0-33.0); Mean Platelet Volume 11.3 fL (9.4-12.4); Red Blood Count 2.53 X10*6/uL (4.60-5.80)
[2022-04-23 06:34] LABS: Platelet Count 60 X10*3/uL (160-400); White Blood Count 1.8 X10*3/uL (4.8-10.8)
[2022-04-23 06:47] LABS: Anion Gap 12 (12-20); Blood Urea Nitrogen 30 mg/dL (9-16); Calcium 8.4 mg/dL (8.4-10.2); Carbon Dioxide 16 mmol/L (22-29); Chloride 100 mmol/L (96-108); Creatinine Clr Calc Pharmacy 28.5; Estimated Glomerular Filt Rate 46; Glucose Random 105 mg/dL (60-115); Magnesium 1.8 mg/dL (1.6-2.6); Potassium 5.5 mmol/L (3.3-5.1)
[2022-04-23 06:52] LABS: Sodium 122 mmol/L (135-145)
[2022-04-23 07:22] VITALS: BP 95/54; PULSE 74; RESP 16; TEMP 36.2; O2SAT 100
[2022-04-23 07:42] LABS: Glucose, Whole Blood 110 mg/dL (60-115)
[2022-04-23] MEDS: Sodium Zirconium Cyclosilicate 5 GM POWD.PACK PO (09:51)
[2022-04-23] MEDS: Bictegrav/Emtricit/Tenofov Ala TABLET 1 TAB PO (09:51)
[2022-04-23] MEDS: Nicotine 21 MG PATCH.TD24 TRANSDERMA (09:51)
[2022-04-23] MEDS: Sodium Bicarbonate 650 MG TABLET PO ×4 (09:51→21:02)
[2022-04-23] MEDS: Midodrine HCl 5 MG TABLET PO ×3 (09:51→21:02)
[2022-04-23 11:52] VITALS: BP 99/59; PULSE 73; RESP 17; TEMP 36.2; O2SAT 100
[2022-04-23 12:00] LABS: Glucose, Whole Blood 98 mg/dL (60-115)
--- NOTE | 2022-04-23 12:07 | MHC.CLN ---
F/U INTAKE CONTINUES USUALLY 0-25%, OCCASIONALLY HIGHER. DIET=REGULAR WITH ENSURE BID (700 KCALS, 40 G PROTEIN). TPN RUNNING [id number] AT 45ML/HR PROVIDES 767 KCALS, 54 G PROTEIN. REPLETE LYTES NEEDED. DISCUSSED WITH PHARMACY. Dl=330, K+=5.5. SEE NEPHROLOGY CONSULT 04/22 FOR SODIUM REC. CONTINUE CURRENT TPN RATE AT 45 ML PER HOUR WITH NO LIPIDS. CONTINUE TO FOLLOW LABS AND TPN TOLERANCE.
--- NOTE | 2022-04-23 14:45 | HO.PM.IMPN ---
Subjective Subjective Date of Service: 04/23/22 Review of Systems Follow-up for severe protein calorie malnutrition, toxoplasmosis, AIDS patient feeling weak, not interested in eating this morning no pain, no shortness of breath; always cold, no fever Physical Exam Vital Signs: Vital Signs: Last Vital Signs Temp 97.2 F 04/23/22 11:52 Pulse 73 04/23/22 11:52 Resp 17 04/23/22 11:52 BP 99/59 L 04/23/22 11:52 Pulse Ox 100 04/23/22 11:52 O2 Del Method 04/23/22 11:52 BMI result Body Mass Index 13.6 Thin and frail appearing lung sounds are clear to auscultation heart regular rate rhythm, clear S1, S2 positive bowel sounds, abdomen is soft, nontender neuro patient is alert x3, no focal deficits Objective Data Active Medications Acetaminophen (Acetaminophen 325 Mg Tablet) 650 mg PO Q6H PRN PRN Reason: Pain, Mild (Pain Scale 1-3) Last Admin: 04/19/22 09:00 Dose: 650 mg Documented By: JOANN Bictegravir/Emtricitabine/Tenofovir (Bictegrav/Emtricit/Tenofov Ala Tablet) 1 tab PO DAILY TOMY Last Admin: 04/23/22 09:51 Dose: 1 tab Documented By: COTEMA Dextrose (Dextrose 50 % 25 Gm/50 Ml Syringe) 25 gm IVPUSH Q15M PRN; Protocol PRN Reason: per Hypoglycemia Standing Ord. Doxazosin Mesylate (Doxazosin Mesylate 2 Mg Tablet) 4 mg PO BEDTIME TOMY; Protocol Last Admin: 04/17/22 21:59 Dose: Not Given Documented By: IRVING Non-Admin Reason: low BP Glucose (Glucose Gel 15 Gm Gel..Gram.) 15 gm PO Q15M PRN; Protocol PRN Reason: per Hypoglycemia Standing Ord. Fluconazole 100 mg/ IV (Miscellaneous Supplies) 50 mls @ 50 mls/hr IV Q24H TOMY Last Infusion: 04/22/22 17:27 Dose: 0 mls/hr Documented By: COTEMA Trimethoprim/Sulfamethoxazole (320 mg/ Dextrose) 520 mls @ 225 mls/hr IV Q12H TOMY Last Infusion: 04/23/22 07:32 Dose: 0 mls/hr Documented By: HO.COTEMA Sodium Chloride 40 meq/Magnesium Sulfate 8 meq/Calcium Gluconate 4.65 meq/Sodium Phosphate 15 mmol/Multivitamins 10 ml/ Trace Metals 1 ml/ Amino Acids/Dextrose 1,038 mls @ 45 mls/hr IV DAILY@1800 [facility] Stop: 04/23/22 17:03 Last Admin: 04/22/22 17:50 Dose: 45 mls/hr Documented By: COTEMA Magnesium Sulfate 8 meq/Calcium Gluconate 4.65 meq/Sodium Acetate 80 meq/ Sodium Phosphate 5 mmol/Multivitamins 10 ml/ Trace Metals 1 ml/ Amino Acids/Dextrose 1,064.6667 mls @ 45 mls/hr IV DAILY@1800 [facility] Stop: 04/24/22 17:40 Insulin Human Lispro (Insulin Lispro 100 Unit/Ml 3 Ml Vial) 0 unit SUBCUT QIDACHS [facility]; Protocol Last Admin: 04/23/22 12:34 Dose: Not Given Documented By: MAYEMA Non-Admin Reason: No Insulin Coverage Midodrine (Midodrine Hcl 5 Mg Tablet) 5 mg PO TID [facility] Last Admin: 04/23/22 13:26 Dose: 5 mg Documented By: MAYEMA Nicotine (Nicotine 21 Mg Patch.Td24) 21 mg TRANSDERMA DAILY [facility] Last Admin: 04/23/22 09:51 Dose: 21 mg Documented By: COTEMA Ondansetron HCl (Ondansetron Hcl 4 Mg/2 Ml Vial) 4 mg IVPUSH Q8H PRN PRN Reason: Nausea and Vomiting Pharmacy Consult (Consult Rx Perform Med Rec) 1 each MISCELLANE ONCE PRN PRN Reason: Consult order Sodium Bicarbonate (Sodium Bicarbonate 650 Mg Tablet) 650 mg PO QID [facility] Last Admin: 04/23/22 13:26 Dose: 650 mg Documented By: COTEMA Sodium Chloride (0.9 % Sodium Chloride Flush 3 Ml Syringe) 3 ml IVFLUSH QSHIFT [facility] Last Admin: 04/23/22 07:23 Dose: Not Given Documented By: COTEMA Non-Admin Reason: IV Running Labs CBC & Chem 7: 04/23/22 05:59 04/23/22 05:59 Labs: Laboratory Results - last 24 hr 04/22/22 04/22/22 04/22/22 15:25 16:47 19:31 MCV MCH MCHC RDW Plt Count MPV Absolute Nucleated RBC Nucleated RBC % (auto) Anion Gap Estim Creat Clear Calc Estimated GFR POC Glucose 109 112 150 H Random Glucose Calcium Phosphorus Magnesium 04/23/22 04/23/22 04/23/22 05:59 05:59 07:24 MCV 87.4 MCH 29.6 MCHC 33.9 RDW 19.0 H Plt Count 60 L MPV 11.3 Absolute Nucleated RBC 0.000 Nucleated RBC % (auto) 0.0 Anion Gap 12 Estim Creat Clear Calc 28.5 Estimated GFR 46 POC Glucose 110 Random Glucose 105 Calcium 8.4 Phosphorus 4.0 Magnesium 1.8 04/23/22 11:55 MCV MCH MCHC RDW Plt Count MPV Absolute Nucleated RBC Nucleated RBC % (auto) Anion Gap Estim Creat Clear Calc Estimated GFR POC Glucose 98 Random Glucose Calcium Phosphorus Magnesium Assessment and Plan (1) Hyponatremia: Status: Acute (2) Hyperkalemia: Status: Acute (3) Toxoplasmosis: Status: Acute (4) Acute kidney injury: Status: Acute (5) Pancytopenia: Status: Acute (6) Metabolic acidosis with normal anion gap and bicarbonate losses: Status: Acute Plan A 56-year-old male with a past medical history of HIV/AIDS , HCV, h/o substance abuse presents to the hospital after a neighbor was concerned that the patient was not taking care of himself, the patient was found to be significantly dehydrated--Clincal presentation consistent with advanced AIDS Hyperkalemia K 5.5 lokelma adjust PPN Follow BMP Hyponatremia adjust PPN d/c IVF follow BMP urine studies Oral thrush Continue IV fluconazole nystatin swish and swallow 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 If changes persist consider workup for primary brain malignancy Brain hemorrhage seen by Neurology, can be seen with toxoplasmosis -avoid blood thinners HIV/AIDS complex Likely not compliant with treatment CD4 count--54 -MRI of head with finding concerning for Toxo--as above -restarted on Bictarvy -Mepron for PCP prophylaxis KATHERINE/metabolic acidosis likely d/t prerenal state-improved from admission creatinine stable for multiple days, likely new baseline -renal following - further work up ordered -continue sodium bicarbonate Hypotension. not r/t sepsis Blood pressure continues to be low Patient asymptomatic Continue midodrine Consider Florinef if BP continues to be low rule out adrenal insuf, cortisol pending Adult failure to thrive Severe protein calorie malnutrition likely in the setting of HIV, history of hep C infection as well as IV drug use seen by nutrition s/p speech eval, wnl, continue regular diet -? PICC line placed for PPN - discussed with Nutrition, they recommend patient be eating 50% of meals or greater consistently before discontinuing PPN Pancytopenia Chronic, r/t underlying liver dz, severe illness, poor nutritional state b12, folate wnl, iron studies c/w chronic inflammation no active bleeding noted, stool occult pending H/H trending down,consider transfusion if drops further Urinary retention failed voiding trial. mojica replaced 04/20. keep mojica in place Seen by Urology, started on Cardura Given persistent low blood pressure, Cardura stopped DM SS, ADA diet Tobacco dependence Smoking cessation advised NRT DVT ppx: heparin d/c in ICU due to bleeding seen on brain imaging; mechanical devices attending - Dr. Lu DNR Need for inpatient: management with KATHERINE, toxoplasmosis CM, toxoplasmosis working on safe dispo [facility] following but needs PPN for few more days to attempt to boost nutritional status Quality Stroke Does the patient have a stroke diagnosis?: No VTE Prior VTE?: No VTE Risk Level:: Medical - moderate - high VTE Device Contraindication: Treatment Not Indicated VTE Drug Contraindication: N/A - Med Ordered
[2022-04-23] MEDS: Fluconazole in NaCl,Iso-Osm 100 MG in Container,Empty 0 ML 50 MG IV (14:49)
[2022-04-23 16:00] VITALS: BP 93/56; PULSE 73; RESP 16; TEMP 36.3; O2SAT 100
--- NOTE | 2022-04-23 16:26 | P.PNNP_ITS ---
Subjective Subjective Date of Service: 04/23/22 Interval history: Seen and examined this morning Follow-up for KATHERINE and now hyponatremia, hyperkalemia and metabolic acidosis; severe protein calorie malnutrition, toxoplasmosis, AIDS patient feeling weak, not interested in eating Physical Exam Vital Signs: Vital Signs: Last Vital Signs Temp 97.4 F 04/23/22 16:00 Pulse 73 04/23/22 16:00 Resp 16 04/23/22 16:00 BP 93/56 L 04/23/22 16:00 Pulse Ox 100 04/23/22 16:00 O2 Del Method 04/23/22 16:00 BMI result Body Mass Index 13.6 Const: Other: bitemporal wasting General: cooperative, healthy appearing, comfortable, no acute distress, alert, awake and ill appearing Nutritional Appearance: cachectic and malnourished Orientation/consciousness: oriented to person, oriented to place and patient oriented x3 HEENT: Other: bitemporal wasting Head: Yes normocephalic and Yes atraumatic Ears: external ears normal General nose exam: Normal external nose present Face and sinus: Yes normal facial exam Mouth: Normal oral and palatal mucosa present (thrush), moist mucous membranes and other ( very dry mucous membranes) Eyes: General: appearance normal, both eyes and all related structures Corneas: corneas abnormal (left opacification cornea) Pupils: Equal, round and reactive pupils present EOM: EOMs intact bilaterally Neck: Neck: Yes normal visual inspection, Yes full ROM, Yes no lymphadenopathy, Yes trachea midline, Yes supple and Yes no JVD Chest: Chest palpation & inspection: normal inspection of the chest and normal palpation of entire chest wall Resp: Effort & Inspection: normal respiratory effort, able to speak in complete sentences and no respiratory distress Auscultation: clear to auscultation bilaterally and diminished lung sounds Cardio: Jugular venous distension: no JVD Palpation: no palpable S3 Rate: regular rate Rhythm: regular rhythm Heart sounds: S1 normal heart sound present, S2 normal heart sound present, no murmurs and no rubs GI: Inspection: Yes normal to inspection and No distended Palpation (GI): Soft to palpation, nontender and no guarding Auscultation: normal bowel sounds : Other: mojica in place draining clear yellow urine General: Yes no CVA tenderness Back/Spine/Pelvis: Back: no CVA tenderness Cervical Spine: normal cervical lordosis Thoracic/Lumbar Spine: thoracic and lumbar spine normal to inspection Skin: Other: Significant dehydration General skin exam: no rashes or lesions noted Neuro: Other: He is alert and awake with normal spontaneity and fluency of speech. He is able to comprehend and answer simple questions and follow simple commands. He denied having any headache or discomfort. He seemed to have lost significant weight. Oral hygiene was poor and most teeth were missing. Visual ford on threat were okay. Face was symmetrical. There was no obvious focal arm or leg weakness. Deep tendon reflexes were absent with flexor plantars. General: oriented to person, oriented to place, patient oriented x3, tone normal, moves all extremities and no focal motor deficits Cranial nerves: Yes CN's II-XII intact bilaterally and Yes Equal, round and reactive pupils present Cognition (Neuro): normal cognition Motor exam (neuro): 5/5 motor strength present t hroughout and no asterixis Extrem: General: Yes normal to inspection, Yes capillary refill normal, Yes no clubbing, cyanosis or edema and Yes no pedal edema Objective Data Labs CBC & Chem 7: 04/23/22 05:59 04/23/22 05:59 Labs: Laboratory Results - last 24 hr 04/22/22 04/22/22 04/22/22 15:25 16:47 19:31 WBC RBC Hgb Hct MCV MCH MCHC RDW Plt Count MPV Absolute Nucleated RBC Nucleated RBC % (auto) Sodium Potassium Chloride Carbon Dioxide Anion Gap BUN Creatinine Estim Creat Clear Calc Estimated GFR POC Glucose 109 112 150 H Random Glucose Calcium Phosphorus Magnesium 04/23/22 04/23/22 04/23/22 05:59 05:59 07:24 WBC 1.8 L RBC 2.53 L Hgb 7.5 L Hct 22.1 L MCV 87.4 MCH 29.6 MCHC 33.9 RDW 19.0 H Plt Count 60 L MPV 11.3 Absolute Nucleated RBC 0.000 Nucleated RBC % (auto) 0.0 Sodium 122 L Potassium 5.5 H Chloride 100 Carbon Dioxide 16 L Anion Gap 12 BUN 30 H Creatinine 1.57 H Estim Creat Clear Calc 28.5 Estimated GFR 46 POC Glucose 110 Random Glucose 105 Calcium 8.4 Phosphorus 4.0 Magnesium 1.8 04/23/22 11:55 WBC RBC Hgb Hct MCV MCH MCHC RDW Plt Count MPV Absolute Nucleated RBC Nucleated RBC % (auto) Sodium Potassium Chloride Carbon Dioxide Anion Gap BUN Creatinine Estim Creat Clear Calc Estimated GFR POC Glucose 98 Random Glucose Calcium Phosphorus Magnesium Microbiology Microbiology Results: Microbiology 04/13/22 03:51 Blood - Venous Blood Culture - Final No growth after 5 days. 04/13/22 03:51 Blood - Venous Blood Culture - Final No growth after 5 days. 04/10/22 20:00 Urine clean catch - Urine hardin top Urine Culture - Final Procedures Date of Service Date of Service: 04/23/22 Assessment & Plan Assessment and plan (1) Hyponatremia: Status: Acute Assessment and Plan: Pt is getting hypotonic fluids -need to increase sodium in PPN to isotonic -0.9 normal saline or LR (2) Hyperkalemia: Status: Acute Assessment and Plan: Due to metabolic acidosis and transcell shift and inadequate distal sodium delivery (3) Toxoplasmosis: Status: Acute (4) Acute kidney injury: Status: Acute Assessment and Plan: Multifactorial ATN, cannot rule out AIN (5) Pancytopenia: Status: Acute (6) Metabolic acidosis with normal anion gap and bicarbonate losses: Status: Acute Plan A 56-year-old male with a past medical history of HIV/AIDS , HCV, h/o substance abuse presents to the hospital after a neighbor was concerned that the patient was not taking care of himself, the patient was found to be significantly dehydrated--Clincal presentation consistent with advanced AIDS May need full TPN for adequate sodium and acetate in TPN to correct electrolyte abnormalities Rule out adrenal insufficiency with am cortisol Time Spent With Patient Time: Total time spent is greater than 50% in coordination of care (as documented) at patient's floor/unit and/or counseling patient: Progress Note: Quality Stroke Does the patient have a stroke diagnosis?: No
[2022-04-23 16:46] LABS: Glucose, Whole Blood 101 mg/dL (60-115)
[2022-04-23] MEDS: Nystatin Oral Susp 500,000 UNIT/5 ML ORAL.SUSP 200000 UNIT BUCCAL ×2 (17:40→21:02)
[2022-04-23 19:39] VITALS: BP 93/54; PULSE 82; RESP 16; TEMP 36.5; O2SAT 100
[2022-04-23 20:30] LABS: Glucose, Whole Blood 211 mg/dL (60-115)
[2022-04-23] MEDS: Insulin Lispro 100 UNIT/ML 3 ML VIAL SUBCUT (21:04)
[2022-04-23 23:55] VITALS: BP 97/56; PULSE 82; RESP 17; TEMP 36.6; O2SAT 100
[2022-04-24 03:18] VITALS: BP 95/62; PULSE 78; RESP 18; TEMP 36.3; O2SAT 100
[2022-04-24] MEDS: Sulfamethoxazole/Trimethoprim 320 MG in Dextrose 5 % 500 ML 225 MG IV ×2 (05:50→17:36)
[2022-04-24 06:05] LABS: Hematocrit 22.6 % (42.0-52.0); Hemoglobin 7.9 g/dl (14.0-18.0); Mean Corpuscular Hemoglobin 29.9 pg (27.0-33.0); Mean Corpuscular Volume 85.6 fL (80.0-98.0); Mean Platelet Volume 10.3 fL (9.4-12.4); PLT CLUMP 1; Red Blood Count 2.64 X10*6/uL (4.60-5.80); Red Cell Distribution Width 18.9 % (11.0-16.0)
[2022-04-24 06:24] LABS: White Blood Count 2.6 X10*3/uL (4.8-10.8)
[2022-04-24 06:32] LABS: Anion Gap 9 (12-20); Blood Urea Nitrogen 35 mg/dL (9-16); Calcium 8.5 mg/dL (8.4-10.2); Carbon Dioxide 18 mmol/L (22-29); Chloride 97 mmol/L (96-108); Creatinine Clr Calc Pharmacy 26.5; Estimated Glomerular Filt Rate 42; Glucose Random 92 mg/dL (60-115); Potassium 5.3 mmol/L (3.3-5.1)
--- NOTE | 2022-04-24 06:35 | MHC.PIE ---
p; Na 119 i; dr ortega notified e; will cont to monitor
[2022-04-24 06:37] LABS: Sodium 119 mmol/L (135-145)
[2022-04-24 07:18] VITALS: BP 92/53; PULSE 80; RESP 17; TEMP 36.6; O2SAT 100
[2022-04-24 07:32] LABS: Glucose, Whole Blood 135 mg/dL (60-115)
[2022-04-24 08:28] LABS: Albumin Level 2.9 g/dL (3.5-5.0); Magnesium 1.9 mg/dL (1.6-2.6); Phosphorus 3.4 mg/dL (2.7-4.5)
--- NOTE | 2022-04-24 08:52 | PM.PNNEP ---
Subjective Subjective Date of Service: 04/24/22 Interval history: Seen and examined this morning Follow-up for KATHERINE and now hyponatremia, hyperkalemia and metabolic acidosis; severe protein calorie malnutrition, toxoplasmosis, AIDS patient feeling weak, not interested in eating Physical Exam Vital Signs: Vital Signs: Last Vital Signs Temp 97.9 F 04/24/22 07:18 Pulse 80 04/24/22 07:18 Resp 17 04/24/22 07:18 BP 92/53 L 04/24/22 07:18 Pulse Ox 100 04/24/22 07:18 O2 Del Method 04/24/22 07:18 BMI result Body Mass Index 13.6 Const: General: awake Nutritional Appearance: malnourished Neck: Neck: Yes supple Resp: Auscultation: diminished lung sounds Cardio: Palpation: no palpable S3 Heart sounds: no rubs Neuro: Motor exam (neuro): no asterixis Objective Data Labs CBC & Chem 7: 04/24/22 05:25 04/24/22 05:25 Labs: Laboratory Results - last 24 hr 04/23/22 04/23/22 04/23/22 05:59 11:55 16:27 WBC RBC Hgb Hct MCV MCH MCHC RDW Plt Count MPV Absolute Nucleated RBC Nucleated RBC % (auto) Sodium Potassium Chloride Carbon Dioxide Anion Gap BUN Creatinine Estim Creat Clear Calc Estimated GFR POC Glucose 98 101 Random Glucose Calcium Phosphorus 4.0 Magnesium Albumin 04/23/22 04/24/22 04/24/22 19:42 05:25 05:25 WBC 2.6 L RBC 2.64 L Hgb 7.9 L Hct 22.6 L MCV 85.6 MCH 29.9 MCHC 35.0 RDW 18.9 H Plt Count TNP MPV 10.3 Absolute Nucleated RBC 0.000 Nucleated RBC % (auto) 0.0 Sodium 119 L* Potassium 5.3 H Chloride 97 Carbon Dioxide 18 L Anion Gap 9 L BUN 35 H Creatinine 1.69 H Estim Creat Clear Calc 26.5 Estimated GFR 42 POC Glucose 211 H Random Glucose 92 Calcium 8.5 Phosphorus 3.4 Magnesium 1.9 Albumin 2.9 L 04/24/22 07:16 WBC RBC Hgb Hct MCV MCH MCHC RDW Plt Count MPV Absolute Nucleated RBC Nucleated RBC % (auto) Sodium Potassium Chloride Carbon Dioxide Anion Gap BUN Creatinine Estim Creat Clear Calc Estimated GFR POC Glucose 135 H Random Glucose Calcium Phosphorus Magnesium Albumin Microbiology Microbiology Results: Microbiology 04/13/22 03:51 Blood - Venous Blood Culture - Final No growth after 5 days. 04/13/22 03:51 Blood - Venous Blood Culture - Final No growth after 5 days. 04/10/22 20:00 Urine clean catch - Urine hardin top Urine Culture - Final Procedures Date of Service Date of Service: 04/24/22 Assessment & Plan Assessment and plan (1) Acute kidney injury: Status: Acute Plan 1.Hypernatremia due to dehydration Now developed Hyponatremia 2.Hyperkalemia 3.KATHERINE a,2,and 3 due to BACTRIM Restrict hypotonic fluids Lokelma 10 gm PO dialy Consider alternative agents to Bactrim Encourage PO fluids No indicatoin for dialysis Time Spent With Patient Time: Total time spent is greater than 50% in coordination of care (as documented) at patient's floor/unit and/or counseling patient: Progress Note: Quality Stroke Does the patient have a stroke diagnosis?: No
[2022-04-24] MEDS: Sodium Bicarbonate 650 MG TABLET PO ×4 (08:57→21:15)
[2022-04-24] MEDS: Midodrine HCl 5 MG TABLET PO ×3 (08:57→21:16)
[2022-04-24] MEDS: Bictegrav/Emtricit/Tenofov Ala TABLET 1 TAB PO (08:57)
[2022-04-24] MEDS: Nystatin Oral Susp 500,000 UNIT/5 ML ORAL.SUSP 200000 UNIT BUCCAL ×4 (08:57→21:15)
[2022-04-24] MEDS: Nicotine 21 MG PATCH.TD24 TRANSDERMA (08:57)
--- NOTE | 2022-04-24 11:12 | MHC.CLN ---
F/U PT WITH VARIABLE PO INTAKE RANGING FROM 0-75% PT CURRENTLY RECEIVING D15AA5 AT 45ML/HR PROVIDES 767 KCALS, 54G PROTEIN. RECOMMEND INCREASING FORMULA D15AA5 TO 50ML/HR WITH 14ML OF 20% LIPIDS TO PROVIDE 1188TOTAL KCALS (30KCLAS/KG), 60G PROTEIN (1.5G/KG) DISCUSSED WITH PHARMACY, REPLETE LYTES NEEDED STRICT PO INTAKE
--- NOTE | 2022-04-24 11:33 | P.PNIM_ITS ---
Subjective Subjective Date of Service: 04/24/22 Review of Systems Follow-up for severe protein calorie malnutrition, toxoplasmosis, AIDS weakness, poor appetite no pain, no shortness of breath; always cold, no fever Unwitnessed fall with no injury Physical Exam Vital Signs: Vital Signs: Last Vital Signs Temp 97.9 F 04/24/22 07:18 Pulse 80 04/24/22 07:18 Resp 17 04/24/22 07:18 BP 92/53 L 04/24/22 07:18 Pulse Ox 100 04/24/22 07:18 O2 Del Method 04/24/22 07:18 BMI result Body Mass Index 13.6 Gaunt and frail lung sounds dim heart regular rate rhythm, clear S1, S2 positive bowel sounds, abdomen is soft, nontender neuro patient is alert x3, no focal deficits Objective Data Active Medications Acetaminophen (Acetaminophen 325 Mg Tablet) 650 mg PO Q6H PRN PRN Reason: Pain, Mild (Pain Scale 1-3) Last Admin: 04/19/22 09:00 Dose: 650 mg Documented By: JOANN Bictegravir/Emtricitabine/Tenofovir (Bictegrav/Emtricit/Tenofov Ala Tablet) 1 tab PO DAILY TOMY Last Admin: 04/24/22 08:57 Dose: 1 tab Documented By: SHEEBA Dextrose (Dextrose 50 % 25 Gm/50 Ml Syringe) 25 gm IVPUSH Q15M PRN; Protocol PRN Reason: per Hypoglycemia Standing Ord. Doxazosin Mesylate (Doxazosin Mesylate 2 Mg Tablet) 4 mg PO BEDTIME TOMY; Protocol Last Admin: 04/17/22 21:59 Dose: Not Given Documented By: IRVING Non-Admin Reason: low BP Glucose (Glucose Gel 15 Gm Gel..Gram.) 15 gm PO Q15M PRN; Protocol PRN Reason: per Hypoglycemia Standing Ord. Fluconazole 100 mg/ IV (Miscellaneous Supplies) 50 mls @ 50 mls/hr IV Q24H TOMY Last Infusion: 04/23/22 15:50 Dose: 0 mls/hr Documented By: COTEMA Trimethoprim/Sulfamethoxazole (320 mg/ Dextrose) 520 mls @ 225 mls/hr IV Q12H TOMY Last Infusion: 04/24/22 08:22 Dose: 0 mls/hr Documented By: DABA Magnesium Sulfate 8 meq/Calcium Gluconate 4.65 meq/Sodium Acetate 80 meq/ Sodium Phosphate 5 mmol/Multivitamins 10 ml/ Trace Metals 1 ml/ Amino Acids/Dextrose 1,064.6667 mls @ 45 mls/hr IV DAILY@1800 [facility] Stop: 04/24/22 17:40 Last Admin: 04/23/22 18:26 Dose: 45 mls/hr Documented By: MAYEMA Magnesium Sulfate 16 meq/Calcium Gluconate 9.3 meq/Sodium Acetate 180 meq/ Sodium Phosphate 10 mmol/Multivitamins 17 ml/ Trace Metals 1.7 ml/ Amino Acids/Dextrose 1,200 mls @ 50 mls/hr IV DAILY@1800 [facility] Stop: 04/25/22 17:59 Fat Emulsion Intravenous (Intralipid) 168 mls @ 14 mls/hr IV DAILY@1800 [facility] Stop: 04/25/22 05:59 Insulin Human Lispro (Insulin Lispro 100 Unit/Ml 3 Ml Vial) 0 unit SUBCUT QIDACHS [facility]; Protocol Last Admin: 04/24/22 07:18 Dose: Not Given Documented By: SHEEBA Non-Admin Reason: No Insulin Coverage Midodrine (Midodrine Hcl 5 Mg Tablet) 5 mg PO TID [facility] Last Admin: 04/24/22 08:57 Dose: 5 mg Documented By: SHEEBA Nicotine (Nicotine 21 Mg Patch.Td24) 21 mg TRANSDERMA DAILY [facility] Last Admin: 04/24/22 08:57 Dose: 21 mg Documented By: SHEEBA Nystatin (Nystatin Oral Susp 500,000 Unit/5 Ml Oral.Susp) 200,000 unit BUCCAL QID [facility]; Protocol Last Admin: 04/24/22 08:57 Dose: 200,000 unit Documented By: SHEEBA Ondansetron HCl (Ondansetron Hcl 4 Mg/2 Ml Vial) 4 mg IVPUSH Q8H PRN PRN Reason: Nausea and Vomiting Pharmacy Consult (Consult Rx Perform Med Rec) 1 each MISCELLANE ONCE PRN PRN Reason: Consult order Sodium Bicarbonate (Sodium Bicarbonate 650 Mg Tablet) 650 mg PO QID [facility] Last Admin: 04/24/22 08:57 Dose: 650 mg Documented By: SHEEBA Sodium Chloride (0.9 % Sodium Chloride Flush 3 Ml Syringe) 3 ml IVFLUSH QSHIFT [facility] Last Admin: 04/24/22 07:19 Dose: Not Given Documented By: SHEEBA Non-Admin Reason: IV Running Labs CBC & Chem 7: 04/24/22 05:25 04/24/22 05:25 Labs: Laboratory Results - last 24 hr 04/23/22 04/23/22 04/23/22 11:55 16:27 19:42 MCV MCH MCHC RDW Plt Count MPV Absolute Nucleated RBC Nucleated RBC % (auto) Anion Gap Estim Creat Clear Calc Estimated GFR POC Glucose 98 101 211 H Random Glucose Calcium Phosphorus Magnesium Albumin 04/24/22 04/24/22 04/24/22 05:25 05:25 07:16 MCV 85.6 MCH 29.9 MCHC 35.0 RDW 18.9 H Plt Count TNP MPV 10.3 Absolute Nucleated RBC 0.000 Nucleated RBC % (auto) 0.0 Anion Gap 9 L Estim Creat Clear Calc 26.5 Estimated GFR 42 POC Glucose 135 H Random Glucose 92 Calcium 8.5 Phosphorus 3.4 Magnesium 1.9 Albumin 2.9 L Assessment and Plan (1) Hyponatremia: Status: Acute (2) Hyperkalemia: Status: Acute (3) Toxoplasmosis: Status: Acute (4) Acute kidney injury: Status: Acute (5) Pancytopenia: Status: Acute (6) Metabolic acidosis with normal anion gap and bicarbonate losses: Status: Acute Plan A 56-year-old male with a past medical history of HIV/AIDS , HCV, h/o substance abuse presents to the hospital after a neighbor was concerned that the patient was not taking care of himself, the patient was found to be significantly dehydrated--Clincal presentation consistent with advanced AIDS Unwitnessed fall Does not appear to be any injury Patient denied hitting his head Will obtain stat head CT, bilateral hip x-ray> both negative for acute injury Hyperkalemia K 5.3 lokelma adjust PPN Follow BMP Hyponatremia worse today at 119 TPN to be adjusted follow BMP urine lytes ok, low osmo Oral thrush Continue IV fluconazole nystatin swish and swallow 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 If changes persist consider workup for primary brain malignancy Brain hemorrhage seen by Neurology, can be seen with toxoplasmosis -avoid blood thinners HIV/AIDS complex Likely not compliant with treatment CD4 count--54 -MRI of head with finding concerning for Toxo--as above -restarted on Bictarvy -Mepron for PCP prophylaxis KATHERINE/metabolic acidosis likely d/t prerenal state-improved from admission creatinine stable for multiple days, likely new baseline -renal following - further work up ordered -continue sodium bicarbonate Hypotension. not r/t sepsis Blood pressure continues to be low Patient asymptomatic Continue midodrine Consider Florinef if BP continues to be low rule out adrenal insuf, cortisol pending Adult failure to thrive Severe protein calorie malnutrition likely in the setting of HIV, history of hep C infection as well as IV drug use seen by nutrition s/p speech eval, wnl, continue regular diet -? PICC line placed for PPN - discussed with Nutrition, they recommend patient be eating 50% of meals or greater consistently before discontinuing PPN Pancytopenia Chronic, r/t underlying liver dz, severe illness, poor nutritional state b12, folate wnl, iron studies c/w chronic inflammation no active bleeding noted, stool occult pending H/H trending down,consider transfusion if drops further Urinary retention failed voiding trial. mojica replaced 04/20. keep mojica in place Seen by Urology, started on Cardura Given persistent low blood pressure, Cardura stopped DM SS, ADA diet Tobacco dependence Smoking cessation advised NRT DVT ppx: heparin d/c in ICU due to bleeding seen on brain imaging; mechanical devices attending - Alexander DNR Need for inpatient: management with KATHERINE, toxoplasmosis CM, toxoplasmosis working on safe dispo [facility] following but needs PPN for few more days to attempt to boost nutritional status Quality Stroke Does the patient have a stroke diagnosis?: No VTE Prior VTE?: No VTE Risk Level:: Medical - moderate - high VTE Device Contraindication: Treatment Not Indicated VTE Drug Contraindication: N/A - Med Ordered
[2022-04-24 11:48] VITALS: BP 93/54; PULSE 75; RESP 18; TEMP 36.4; O2SAT 100
[2022-04-24 12:06] LABS: Glucose, Whole Blood 89 mg/dL (60-115)
[2022-04-24] MEDS: Fluconazole in NaCl,Iso-Osm 100 MG in Container,Empty 0 ML 50 MG IV (14:22)
[2022-04-24 16:00] VITALS: BP 98/58; PULSE 67; RESP 16; TEMP 36.4; O2SAT 100
[2022-04-24 16:27] LABS: Complement C3 69 mg/dL (82-185)
[2022-04-24 16:52] LABS: Glucose, Whole Blood 80 mg/dL (60-115)
--- NOTE | 2022-04-24 17:57 | PC.NURSE ---
1000am pt found sitting on floor next to bed, knees bent like he was sitting on floor . pt states he was trying to sit in the chair. there was no chair there . pt stood up and walked back to bed with myself and the nurses aid , pt did not c/o any pain or discomfort . vss byron notified and at bedside , nursing cigar tobacco processing supervisor and traffic ii manager aware . xrays of hips and head ct ordered.
[2022-04-24 18:05] LABS: Haptoglobin 17 mg/dL (43-212)
[2022-04-24 19:21] VITALS: BP 97/71; PULSE 76; RESP 18; TEMP 36.2; O2SAT 100
[2022-04-24 20:46] LABS: Glucose, Whole Blood 73 mg/dL (60-115)
[2022-04-24] MEDS: Fat Emulsions 20% 250 ML 14 ML IV (21:17)
[2022-04-24 21:42] LABS: Prot Elec - Albumin 2.8 g/dL (3.8-4.8); Prot Elec - Alpha1 0.4 g/dL (0.2-0.3); Prot Elec - Alpha2 0.5 g/dL (0.5-0.9); Prot Elec - Beta 1 0.4 g/dL (0.4-0.6); Prot Elec - Beta 2 0.4 g/dL (0.2-0.5); Prot Elec - Gamma 2.4 g/dL (0.8-1.7); Prot Elec - Total Protein 6.9 g/dL (6.1-8.1)
[2022-04-24 22:15] LABS: Glucose, Whole Blood 99 mg/dL (60-115)
[2022-04-25] VITALS (8 sets, daily range): BP systolic 88–144; BP diastolic 42–67; PULSE 64–90; RESP 16–18; TEMP 36.1–37.3; O2SAT 92–100
[2022-04-25] MEDS: Sulfamethoxazole/Trimethoprim 320 MG in Dextrose 5 % 500 ML 225 MG IV ×2 (05:32→16:58)
[2022-04-25 07:35] LABS: Glucose, Whole Blood 120 mg/dL (60-115)
[2022-04-25 08:35] LABS: Hematocrit 22.1 % (42.0-52.0); Hemoglobin 7.8 g/dl (14.0-18.0); Mean Corpuscular HGB Conc 35.3 g/dl (31.0-36.0); Mean Corpuscular Hemoglobin 30.1 pg (27.0-33.0); Mean Corpuscular Volume 85.3 fL (80.0-98.0); Mean Platelet Volume 10.7 fL (9.4-12.4); Red Blood Count 2.59 X10*6/uL (4.60-5.80); Red Cell Distribution Width 19.3 % (11.0-16.0); White Blood Count 2.7 X10*3/uL (4.8-10.8)
[2022-04-25 08:36] LABS: Platelet Count 69 X10*3/uL (160-400)
[2022-04-25] MEDS: Nicotine 21 MG PATCH.TD24 TRANSDERMA (08:39)
[2022-04-25] MEDS: Nystatin Oral Susp 500,000 UNIT/5 ML ORAL.SUSP 200000 UNIT BUCCAL ×4 (08:40→20:54)
[2022-04-25] MEDS: Bictegrav/Emtricit/Tenofov Ala TABLET 1 TAB PO (08:41)
[2022-04-25] MEDS: Sodium Bicarbonate 650 MG TABLET PO ×4 (08:41→20:55)
[2022-04-25] MEDS: Midodrine HCl 5 MG TABLET PO ×3 (08:41→20:55)
[2022-04-25 08:48] LABS: Anion Gap 10 (12-20); Blood Urea Nitrogen 35 mg/dL (9-16); Calcium 8.3 mg/dL (8.4-10.2); Carbon Dioxide 18 mmol/L (22-29); Chloride 92 mmol/L (96-108); Creatinine Clr Calc Pharmacy 26.7; Estimated Glomerular Filt Rate 42; Glucose Random 63 mg/dL (60-115); Potassium 5.3 mmol/L (3.3-5.1); Sodium 115 mmol/L (135-145)
--- NOTE | 2022-04-25 09:37 | PM.PNNEP ---
Subjective Subjective Date of Service: 04/25/22 Interval history: Seen and examined this morning Follow-up for KATHERINE and now hyponatremia, hyperkalemia and metabolic acidosis; severe protein calorie malnutrition, toxoplasmosis, AIDS patient feeling weak, not interested in eating Physical Exam Vital Signs: Vital Signs: Last Vital Signs Temp 97.4 F 04/25/22 07:08 Pulse 72 04/25/22 07:08 Resp 16 04/25/22 07:08 BP 93/51 L 04/25/22 07:08 Pulse Ox 100 04/25/22 07:08 O2 Del Method 04/25/22 07:08 BMI result Body Mass Index 13.6 Const: General: awake Nutritional Appearance: malnourished Neck: Neck: Yes supple Resp: Auscultation: diminished lung sounds Cardio: Palpation: no palpable S3 Heart sounds: no rubs Neuro: Motor exam (neuro): no asterixis Objective Data Labs CBC & Chem 7: 04/25/22 08:12 04/25/22 08:12 Labs: Laboratory Results - last 24 hr 04/21/22 04/22/22 04/24/22 06:04 12:30 11:43 WBC RBC Hgb Hct MCV MCH MCHC RDW Plt Count MPV Absolute Nucleated RBC Nucleated RBC % (auto) Haptoglobin 17 L Sodium Potassium Chloride Carbon Dioxide Anion Gap BUN Creatinine Estim Creat Clear Calc Estimated GFR POC Glucose 89 Random Glucose Calcium Total Protein (PEP) 6.9 Albumin (PEP) 2.8 L Gorjt-9-Favtxgorg 0.4 H Mwcjk-8-Vmonfphcf 0.5 Srdf-3-Ctkotcxc 0.4 Ljua-8-Arcqkkvt 0.4 Gamma Globulins 2.4 H PEP Interpretation SEE NOTE Complement C3 69 L Complement C4 5 L 04/24/22 04/24/22 04/24/22 16:44 20:43 22:12 WBC RBC Hgb Hct MCV MCH MCHC RDW Plt Count MPV Absolute Nucleated RBC Nucleated RBC % (auto) Haptoglobin Sodium Potassium Chloride Carbon Dioxide Anion Gap BUN Creatinine Estim Creat Clear Calc Estimated GFR POC Glucose 80 73 99 Random Glucose Calcium Total Protein (PEP) Albumin (PEP) Vpbfg-5-Jnlytormm Iitav-5-Jtswhbxnr Cfsi-1-Attfllzm Bohf-5-Mtnvtpzz Gamma Globulins PEP Interpretation Complement C3 Complement C4 04/25/22 04/25/22 04/25/22 07:05 08:12 08:12 WBC 2.7 L RBC 2.59 L Hgb 7.8 L Hct 22.1 L MCV 85.3 MCH 30.1 MCHC 35.3 RDW 19.3 H Plt Count 69 L MPV 10.7 Absolute Nucleated RBC 0.000 Nucleated RBC % (auto) 0.0 Haptoglobin Sodium 115 L* Potassium 5.3 H Chloride 92 L Carbon Dioxide 18 L Anion Gap 10 L BUN 35 H Creatinine 1.68 H Estim Creat Clear Calc 26.7 Estimated GFR 42 POC Glucose 120 H Random Glucose 63 Calcium 8.3 L Total Protein (PEP) Albumin (PEP) Efpcp-8-Wjshvlvzw Hroaw-0-Ibeihmqwh Bacn-9-Fvplttpq Vwqj-4-Wpmmvavh Gamma Globulins PEP Interpretation Complement C3 Complement C4 Microbiology Microbiology Results: Microbiology 04/13/22 03:51 Blood - Venous Blood Culture - Final No growth after 5 days. 04/13/22 03:51 Blood - Venous Blood Culture - Final No growth after 5 days. 04/10/22 20:00 Urine clean catch - Urine hardin top Urine Culture - Final Procedures Date of Service Date of Service: 04/25/22 Assessment & Plan Assessment and plan (1) Acute kidney injury: Status: Acute Plan 1.Hypernatremia due to dehydration Now developed Hyponatremia 2.Hyperkalemia 3.KATHERINE a,2,and 3 due to BACTRIM Restrict hypotonic fluids Add UREA 30 gm PO BID Lokelma 10 gm PO dialy Consider alternative agents to Bactrim Restrict PO fluids No indicatoin for dialysis Time Spent With Patient Time: Total time spent is greater than 50% in coordination of care (as documented) at patient's floor/unit and/or counseling patient: Progress Note: Quality Stroke Does the patient have a stroke diagnosis?: No
[2022-04-25 09:52] LABS: IgA 253 mg/dL (47-310); IgG 2546 mg/dL (600-1640); IgM 414 mg/dL (50-300)
--- NOTE | 2022-04-25 10:38 | HO.PM.IMPN ---
Subjective Subjective Date of Service: 04/25/22 Interval History: cc: EMS called by mary joizaiahsamson for FTT interval history:confused, no complaints Cardiovascular Cardiovascular: Reports no additional cardiovascular complaints Respiratory Respiratory: Reports no additional respiratory complaints Physical Exam Vital Signs: Vital Signs: Last Vital Signs Temp 97.4 F 04/25/22 07:08 Pulse 72 04/25/22 07:08 Resp 16 04/25/22 07:08 BP 93/51 L 04/25/22 07:08 Pulse Ox 100 04/25/22 07:08 O2 Del Method 04/25/22 07:08 BMI result Body Mass Index 13.6 General: AO X 1, cachexic, ill appearing Resp: CTA bilateral, no accessory muscles used CVS: S1,S2,RRR GI: soft, non tender, non distended Neuro: motor grossly intact, alert Psych: imapired insight Objective Data Active Medications Acetaminophen (Acetaminophen 325 Mg Tablet) 650 mg PO Q6H PRN PRN Reason: Pain, Mild (Pain Scale 1-3) Last Admin: 04/19/22 09:00 Dose: 650 mg Documented By: JOANN Bictegravir/Emtricitabine/Tenofovir (Bictegrav/Emtricit/Tenofov Ala Tablet) 1 tab PO DAILY TOMY Last Admin: 04/25/22 08:41 Dose: 1 tab Documented By: SHEEBA Dextrose (Dextrose 50 % 25 Gm/50 Ml Syringe) 25 gm IVPUSH Q15M PRN; Protocol PRN Reason: per Hypoglycemia Standing Ord. Doxazosin Mesylate (Doxazosin Mesylate 2 Mg Tablet) 4 mg PO BEDTIME TOMY; Protocol Last Admin: 04/17/22 21:59 Dose: Not Given Documented By: IRVING Non-Admin Reason: low BP Glucose (Glucose Gel 15 Gm Gel..Gram.) 15 gm PO Q15M PRN; Protocol PRN Reason: per Hypoglycemia Standing Ord. Fluconazole 100 mg/ IV (Miscellaneous Supplies) 50 mls @ 50 mls/hr IV Q24H TOMY Last Infusion: 04/24/22 15:26 Dose: 0 mls/hr Documented By: SHEEBA Trimethoprim/Sulfamethoxazole (320 mg/ Dextrose) 520 mls @ 225 mls/hr IV Q12H TOMY Last Infusion: 04/25/22 07:52 Dose: 0 mls/hr Documented By: SHEEBA Magnesium Sulfate 8 meq/Calcium Gluconate 4.65 meq/Sodium Acetate 90 meq/ Sodium Phosphate 5 mmol/Multivitamins 10 ml/ Trace Metals 1 ml/ Amino Acids/Dextrose 1,069.6667 mls @ 50 mls/hr IV DAILY@1800 [facility] Stop: 04/25/22 15:24 Last Admin: 04/24/22 17:37 Dose: 50 mls/hr Documented By: SHEEBA Magnesium Sulfate 8 meq/Calcium Gluconate 4.65 meq/Sodium Acetate 90 meq/ Sodium Phosphate 5 mmol/ Amino Acids/Dextrose 1,058.6667 mls @ 50 mls/hr IV DAILY@1800 [facility] Stop: 04/25/22 17:59 Insulin Human Lispro (Insulin Lispro 100 Unit/Ml 3 Ml Vial) 0 unit SUBCUT QIDACHS [facility]; Protocol Last Admin: 04/25/22 07:41 Dose: Not Given Documented By: SHEEBA Non-Admin Reason: No Insulin Coverage Midodrine (Midodrine Hcl 5 Mg Tablet) 5 mg PO TID [facility] Last Admin: 04/25/22 08:41 Dose: 5 mg Documented By: SHEEBA Nicotine (Nicotine 21 Mg Patch.Td24) 21 mg TRANSDERMA DAILY [facility] Last Admin: 04/25/22 08:39 Dose: 21 mg Documented By: SHEEBA Nystatin (Nystatin Oral Susp 500,000 Unit/5 Ml Oral.Susp) 200,000 unit BUCCAL QID [facility]; Protocol Last Admin: 04/25/22 08:40 Dose: 200,000 unit Documented By: SHEEBA Ondansetron HCl (Ondansetron Hcl 4 Mg/2 Ml Vial) 4 mg IVPUSH Q8H PRN PRN Reason: Nausea and Vomiting Pharmacy Consult (Consult Rx Perform Med Rec) 1 each MISCELLANE ONCE PRN PRN Reason: Consult order Sodium Bicarbonate (Sodium Bicarbonate 650 Mg Tablet) 650 mg PO QID [facility] Last Admin: 04/25/22 08:41 Dose: 650 mg Documented By: SHEEBA Sodium Chloride (0.9 % Sodium Chloride Flush 3 Ml Syringe) 3 ml IVFLUSH QSHIFT [facility] Last Admin: 04/25/22 10:04 Dose: Not Given Documented By: SHEEBA Non-Admin Reason: no iv access Sodium Zirconium Cyclosilicate (Sodium Zirconium Cyclosilicate 10 Gm Powd.Pack) 10 gm PO DAILY TOMY Urea (Urea 15 Gm Powder) 30 gm PO BID TOMY Labs CBC & Chem 7: 04/25/22 08:12 04/25/22 08:12 Labs: Laboratory Results - last 24 hr 04/21/22 04/22/22 04/24/22 06:04 12:30 11:43 MCV MCH MCHC RDW Plt Count MPV Absolute Nucleated RBC Nucleated RBC % (auto) Haptoglobin 17 L Anion Gap Estim Creat Clear Calc Estimated GFR POC Glucose 89 Random Glucose Calcium Total Protein (PEP) 6.9 Albumin (PEP) 2.8 L Ljeuv-8-Lhhlkxctn 0.4 H Qheea-9-Pwoiejtgi 0.5 Atfk-4-Qekebkwv 0.4 Lgbw-3-Dvajwblq 0.4 Gamma Globulins 2.4 H PEP Interpretation SEE NOTE IgG Total 2546 H IgA Total 253 IgM 414 H AWILDA Interpretation SEE NOTE Complement C3 69 L Complement C4 5 L 04/24/22 04/24/22 04/24/22 16:44 20:43 22:12 MCV MCH MCHC RDW Plt Count MPV Absolute Nucleated RBC Nucleated RBC % (auto) Haptoglobin Anion Gap Estim Creat Clear Calc Estimated GFR POC Glucose 80 73 99 Random Glucose Calcium Total Protein (PEP) Albumin (PEP) Vbupz-3-Vumfmnpyl Zwtbx-1-Yzwhpcpjb Fngv-3-Myqujblh Ouzn-5-Ysmyerrk Gamma Globulins PEP Interpretation IgG Total IgA Total IgM AWILDA Interpretation Complement C3 Complement C4 04/25/22 04/25/22 04/25/22 07:05 08:12 08:12 MCV 85.3 MCH 30.1 MCHC 35.3 RDW 19.3 H Plt Count 69 L MPV 10.7 Absolute Nucleated RBC 0.000 Nucleated RBC % (auto) 0.0 Haptoglobin Anion Gap 10 L Estim Creat Clear Calc 26.7 Estimated GFR 42 POC Glucose 120 H Random Glucose 63 Calcium 8.3 L Total Protein (PEP) Albumin (PEP) Cnzzb-6-Xfeckmxlu Vnecj-5-Wmoozzuqp Ruxt-3-Twvflvxm Tled-6-Thmgsaic Gamma Globulins PEP Interpretation IgG Total IgA Total IgM AWILDA Interpretation Complement C3 Complement C4 Assessment and Plan (1) Metabolic acidosis with normal anion gap and bicarbonate losses: Status: Acute (2) Hyponatremia: Status: Acute (3) Hyperkalemia: Status: Acute (4) Toxoplasmosis: Status: Acute (5) Acute kidney injury: Status: Acute (6) Pancytopenia: Status: Acute Plan A 56-year-old male with a past medical history of HIV/AIDS , HCV, h/o substance abuse presents to the hospital after a neighbor was concerned that the patient was not taking care of himself, the patient was found to be significantly dehydrated--Clincal presentation consistent with advanced AIDS Hyperkalemia K 5.3 lokelma 10mg daily adjust PPN Follow BMP Hyponatremia worse today at 115 urea 30gm bid follow BMP urine sodium high, inappropriately high urine osmo nephro following Oral thrush Continue IV fluconazole nystatin swish and swallow 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 If changes persist consider workup for primary brain malignancy Brain hemorrhage seen by Neurology, can be seen with toxoplasmosis -avoid blood thinners HIV/AIDS complex Likely not compliant with treatment CD4 count--54 -MRI of head with finding concerning for Toxo--as above -restarted on Bictarvy KATHERINE/metabolic acidosis likely d/t prerenal state-improved from admission creatinine stable for multiple days, likely new baseline -renal following - further work up ordered -continue sodium bicarbonate Hypotension. not r/t sepsis Blood pressure continues to be low Patient asymptomatic Continue midodrine Adult failure to thrive Severe protein calorie malnutrition likely in the setting of HIV, history of hep C infection as well as IV drug use seen by nutrition s/p speech eval, wnl, continue regular diet -? PICC line placed for PPN - discussed with Nutrition, they recommend patient be eating 50% of meals or greater consistently before discontinuing PPN Pancytopenia Chronic, HIV, severe illness, poor nutritional state b12, folate wnl, iron studies c/w chronic inflammation no active bleeding noted, stool occult pending H/H trending down,consider transfusion if drops further Urinary retention failed voiding trial. mojica replaced 04/20. keep mojica in place Seen by Urology, started on Cardura Given persistent low blood pressure, Cardura stopped DM SS, ADA diet Tobacco dependence Smoking cessation advised NRT DVT ppx: heparin d/c in ICU due to bleeding seen on brain imaging; mechanical devices attending - Alexander DNR Need for inpatient: management with KATHERINE, toxoplasmosis CM, toxoplasmosis working on safe dispo [facility] following but needs PPN for few more days to attempt to boost nutritional status Quality Stroke Does the patient have a stroke diagnosis?: No VTE Prior VTE?: No VTE Risk Level:: Medical - moderate - high VTE Device Contraindication: Treatment Not Indicated VTE Drug Contraindication: N/A - Med Ordered
[2022-04-25 10:41] LABS: Phosphorus 3.1 mg/dL (2.7-4.5)
[2022-04-25 11:43] LABS: Glucose, Whole Blood 105 mg/dL (60-115)
--- NOTE | 2022-04-25 13:19 | MHC.CLN ---
F/U PT WITH USUALLY POOR PO INTAKE. DISCONTINUED ENSURE SUPPLEMENT PER PATIENT REQUEST/REPORT TO [facility] THAT NOT TAKING. LABS REVIEWED WITH IBUCHJ=[id number]. PER LOOM REPAIRER 04/25, RESTRICT HYPOTONIC FLUIDS AND RESTRICT PO FLUID. NURSING CONFIRMED THAT PATIENT DRINKS VERY LITTLE SO NO FLUID RESTRICTION IMPLEMENTED. NOT RECEIVING IV FLUIDS AT THIS TIME. TPN RUNNING [id number] AT 50 ML/HR WITH 14 ML OF 20% LIPIDS. PROVIDES 1188 TOTAL KCALS (30 KCALS/KG), 60 G PROTEIN (1.5 G/KG). DISCUSSED WITH PHARMACY. REPLETE LYTES NEEDED. FOLLOW PO INTAKE.
--- NOTE | 2022-04-25 13:19 | MHC.CM.PN ---
PATIENT COMPLETED HCP, NAMING HIS BROTHER ELIEZER SOLE AGENT. PATIENT STATES THAT HIS SON AND DAUGHTER BOTH LIVE ON THE STREETS WITH NO PHONE THEEFORE HE DOES NOT WISH TO ASSIGN A SECONDARY. [facility] UPDATED. NO PLAN FOR DC TODAY
[2022-04-25] MEDS: Fluconazole in NaCl,Iso-Osm 100 MG in Container,Empty 0 ML 50 MG IV (13:27)
[2022-04-25] MEDS: 0.9 % Sodium Chloride Flush 3 ML SYRINGE IVFLUSH ×2 (15:57→20:55)
[2022-04-25 16:43] LABS: Glucose, Whole Blood 74 mg/dL (60-115)
--- NOTE | 2022-04-25 17:03 | PC.NURSE ---
PT REMOVED HIS PICC LINE , MADE AWARE , PICC LINE INTACT . PHARMACY NOTIFIED IF I COULD HANG TPN THROUGH PERPHERAL LINE , PHARMACY STATES NO, MADE AWARE THAT WE ARE UNABLE TO HANG TPN. NEW #20 PLACED TO LEFT LOWER ARM, ABX RUNNING . SITTER AT BEDSIDE
[2022-04-25 19:38] LABS: Glucose, Whole Blood 95 mg/dL (60-115)
[2022-04-25] MEDS: Melatonin 3 MG TABLET 9 MG PO (20:54)
[2022-04-25] MEDS: Urea 15 GM POWDER 30 GM PO (20:54)
[2022-04-26 03:55] VITALS: BP 100/50; PULSE 69; RESP 17; TEMP 36.4; O2SAT 95
[2022-04-26] MEDS: Sulfamethoxazole/Trimethoprim 320 MG in Dextrose 5 % 500 ML 225 MG IV (04:21)
[2022-04-26 06:53] LABS: Hemoglobin 7.5 g/dl (14.0-18.0); Mean Corpuscular HGB Conc 35.7 g/dl (31.0-36.0); Mean Corpuscular Hemoglobin 30.1 pg (27.0-33.0); Mean Corpuscular Volume 84.3 fL (80.0-98.0); Mean Platelet Volume 11.7 fL (9.4-12.4); PLT CLUMP 1; Red Blood Count 2.49 X10*6/uL (4.60-5.80)
[2022-04-26 07:13] VITALS: BP 75/42; PULSE 138; RESP 18; TEMP 36.7; O2SAT 100
[2022-04-26 07:15] LABS: Anion Gap 10 (12-20); Blood Urea Nitrogen 41 mg/dL (9-16); Calcium 8.4 mg/dL (8.4-10.2); Carbon Dioxide 19 mmol/L (22-29); Chloride 91 mmol/L (96-108); Creatinine Clr Calc Pharmacy 28.5; Estimated Glomerular Filt Rate 46; Glucose Fasting 77 mg/dL (60-99); Potassium 4.9 mmol/L (3.3-5.1)
[2022-04-26 07:36] LABS: Glucose, Whole Blood 57 mg/dL (60-115)
[2022-04-26 07:47] LABS: Sodium 115 mmol/L (135-145)
[2022-04-26] MEDS: Dextrose 50 % 25 GM/50 ML SYRINGE IVPUSH (07:47)
[2022-04-26] MEDS: Sodium Bicarbonate 650 MG TABLET PO (07:47)
[2022-04-26] MEDS: Midodrine HCl 5 MG TABLET PO (07:48)
[2022-04-26] MEDS: Nystatin Oral Susp 500,000 UNIT/5 ML ORAL.SUSP 200000 UNIT BUCCAL (07:48)
[2022-04-26] MEDS: Bictegrav/Emtricit/Tenofov Ala TABLET 1 TAB PO (07:48)
[2022-04-26] MEDS: Nicotine 21 MG PATCH.TD24 TRANSDERMA (07:48)
[2022-04-26 07:49] LABS: White Blood Count 2.1 X10*3/uL (4.8-10.8)
[2022-04-26] MEDS: Urea 15 GM POWDER 30 GM PO (07:49)
[2022-04-26] MEDS: Sodium Zirconium Cyclosilicate 10 GM POWD.PACK PO (07:49)
--- NOTE | 2022-04-26 07:59 | MHC.CM.PN ---
PT'S BROTHER ELIEZER HAYNES [phone]
[2022-04-26] MEDS: 0.9 % Sodium Chloride 1,000 ML 999 ML IV (08:04)
[2022-04-26 09:20] LABS: Glucose, Whole Blood 63 mg/dL (60-115)
[2022-04-26 09:41] LABS: Magnesium 1.9 mg/dL (1.6-2.6); Phosphorus 3.5 mg/dL (2.7-4.5)
--- NOTE | 2022-04-26 10:05 | MHC.CM.PN ---
PATIENT SISTER ENEIDA CALLED THIS PCA. WITH ASSIST OF [employer], CALL TO ENEIDA AT [phone] WITH PERMISSION FROM PATIENT. PATIENT IS UNABLE TO RECALL THE RELATIONSHIP WITH ENEIDA BUT DOES AGREE TO ENEIDA HAVING INFORMATION RELATED TO HIS STAY AND GOALS OF CARE ENEIDA IS AWARE OF PATIENT POSSIBLE GOAL OF CARE BEING HOSPICE LEVEL. ENEIDA ASKS THAT SHE BE UPDATED WITH PLAN IF PATIENT IS TO REMAIN OR TO BE MOVED TO A FACILITY.
--- NOTE | 2022-04-26 10:54 | PM.PNNEP ---
Subjective Subjective Date of Service: 04/26/22 Interval history: Events noted Physical Exam Vital Signs: Vital Signs: Last Vital Signs Temp 98.0 F 04/26/22 07:13 Pulse 138 H 04/26/22 07:13 Resp 18 04/26/22 07:13 BP 75/42 L 04/26/22 07:13 Pulse Ox 100 04/26/22 07:13 O2 Del Method 04/26/22 07:13 BMI result Body Mass Index 13.6 Const: General: awake Nutritional Appearance: malnourished Neck: Neck: Yes supple Resp: Auscultation: diminished lung sounds Cardio: Palpation: no palpable S3 Heart sounds: no rubs Neuro: Motor exam (neuro): no asterixis Objective Data Labs CBC & Chem 7: 04/26/22 05:19 04/26/22 05:19 Labs: Laboratory Results - last 24 hr 04/25/22 04/25/22 04/25/22 11:22 16:21 19:26 WBC RBC Hgb Hct MCV MCH MCHC RDW Plt Count MPV Absolute Nucleated RBC Nucleated RBC % (auto) Sodium Potassium Chloride Carbon Dioxide Anion Gap BUN Creatinine Estim Creat Clear Calc Estimated GFR POC Glucose 105 74 95 Fasting Glucose Calcium Phosphorus Magnesium Albumin 04/26/22 04/26/22 04/26/22 05:19 05:19 07:13 WBC 2.1 L RBC 2.49 L Hgb 7.5 L Hct 21.0 L* MCV 84.3 MCH 30.1 MCHC 35.7 RDW 19.0 H Plt Count TNP MPV 11.7 Absolute Nucleated RBC 0.000 Nucleated RBC % (auto) 0.0 Sodium 115 L* Potassium 4.9 Chloride 91 L Carbon Dioxide 19 L Anion Gap 10 L BUN 41 H Creatinine 1.57 H Estim Creat Clear Calc 28.5 Estimated GFR 46 POC Glucose 57 L* Fasting Glucose 77 Calcium 8.4 Phosphorus 3.5 Magnesium 1.9 Albumin 3.0 L 04/26/22 09:16 WBC RBC Hgb Hct MCV MCH MCHC RDW Plt Count MPV Absolute Nucleated RBC Nucleated RBC % (auto) Sodium Potassium Chloride Carbon Dioxide Anion Gap BUN Creatinine Estim Creat Clear Calc Estimated GFR POC Glucose 63 Fasting Glucose Calcium Phosphorus Magnesium Albumin Microbiology Microbiology Results: Microbiology 04/13/22 03:51 Blood - Venous Blood Culture - Final No growth after 5 days. 04/13/22 03:51 Blood - Venous Blood Culture - Final No growth after 5 days. 04/10/22 20:00 Urine clean catch - Urine hardin top Urine Culture - Final Procedures Date of Service Date of Service: 04/26/22 Assessment & Plan Assessment and plan (1) Acute kidney injury: Status: Acute Plan 1.Hypernatremia due to dehydration Now developed Hyponatremia 2.Hyperkalemia 3.KATHERINE 4. HIV/AIDS / Toxoplasmosis 1,,2,and 3 due to BACTRIM Restrict hypotonic fluids Added UREA 30 gm PO BID Lokelma 10 gm PO dialy Consider alternative agents to Bactrim Restrict PO fluids No indicatoin for dialysis Time Spent With Patient Time: Total time spent is greater than 50% in coordination of care (as documented) at patient's floor/unit and/or counseling patient: Progress Note: Quality Stroke Does the patient have a stroke diagnosis?: No
--- NOTE | 2022-04-26 11:33 | P.PNIM_ITS ---
Subjective Subjective Date of Service: 04/26/22 Interval History: cc: ftt interval history:confused, agitated, pulled picc out Cardiovascular Cardiovascular: Reports no additional cardiovascular complaints Respiratory Respiratory: Reports no additional respiratory complaints Physical Exam Vital Signs: Vital Signs: Last Vital Signs Temp 98.0 F 04/26/22 07:13 Pulse 138 H 04/26/22 07:13 Resp 18 04/26/22 07:13 BP 75/42 L 04/26/22 07:13 Pulse Ox 100 04/26/22 07:13 O2 Del Method 04/26/22 07:13 BMI result Body Mass Index 13.6 General: AO X 1, cachexic, ill appearing Resp: CTA bilateral, no accessory muscles used CVS: S1,S2,RRR GI: soft, non tender, non distended Neuro: motor grossly intact, alert Psych: imapired insight Objective Data Active Medications Acetaminophen (Acetaminophen 325 Mg Tablet) 650 mg PO Q6H PRN PRN Reason: Pain, Mild (Pain Scale 1-3) Last Admin: 04/19/22 09:00 Dose: 650 mg Documented By: JOANN Nicotine (Nicotine 21 Mg Patch.Td24) 21 mg TRANSDERMA DAILY [facility] Last Admin: 04/26/22 07:48 Dose: 21 mg Documented By: JOANN Ondansetron HCl (Ondansetron Hcl 4 Mg/2 Ml Vial) 4 mg IVPUSH Q8H PRN PRN Reason: Nausea and Vomiting Pharmacy Consult (Consult Rx Perform Med Rec) 1 each MISCELLANE ONCE PRN PRN Reason: Consult order Sodium Chloride (0.9 % Sodium Chloride Flush 3 Ml Syringe) 3 ml IVFLUSH QSHIFT [facility] Last Admin: 04/26/22 07:27 Dose: Not Given Documented By: JOANN Non-Admin Reason: IV Running Labs CBC & Chem 7: 04/26/22 05:19 04/26/22 05:19 Labs: Laboratory Results - last 24 hr 04/25/22 04/25/22 04/25/22 11:22 16:21 19:26 MCV MCH MCHC RDW Plt Count MPV Absolute Nucleated RBC Nucleated RBC % (auto) Anion Gap Estim Creat Clear Calc Estimated GFR POC Glucose 105 74 95 Fasting Glucose Calcium Phosphorus Magnesium Albumin 04/26/22 04/26/22 04/26/22 05:19 05:19 07:13 MCV 84.3 MCH 30.1 MCHC 35.7 RDW 19.0 H Plt Count TNP MPV 11.7 Absolute Nucleated RBC 0.000 Nucleated RBC % (auto) 0.0 Anion Gap 10 L Estim Creat Clear Calc 28.5 Estimated GFR 46 POC Glucose 57 L* Fasting Glucose 77 Calcium 8.4 Phosphorus 3.5 Magnesium 1.9 Albumin 3.0 L 04/26/22 09:16 MCV MCH MCHC RDW Plt Count MPV Absolute Nucleated RBC Nucleated RBC % (auto) Anion Gap Estim Creat Clear Calc Estimated GFR POC Glucose 63 Fasting Glucose Calcium Phosphorus Magnesium Albumin Assessment and Plan (1) Metabolic acidosis with normal anion gap and bicarbonate losses: Status: Acute (2) Hyponatremia: Status: Acute (3) Hyperkalemia: Status: Acute (4) Toxoplasmosis: Status: Acute (5) Acute kidney injury: Status: Acute (6) Pancytopenia: Status: Acute Plan A 56-year-old male with a past medical history of HIV/AIDS , HCV, h/o substance abuse presents to the hospital after a neighbor was concerned that the patient was not taking care of himself, the patient was found to be significantly dehydrated--Clincal presentation consistent with advanced AIDS had discussion with brother, HCP, today (see ACP note), 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 Adult failure to thrive Severe protein calorie malnutrition Pancytopenia Urinary retention DM Tobacco dependence will focus on comfort measures, dc antibiotics, antivirals. will stop further blood tests. plan for transfer to [facility] as comfort measures when available DNR/DNI reason for continued hospitalization: awaiting SNF Quality Stroke Does the patient have a stroke diagnosis?: No VTE Prior VTE?: No VTE Risk Level:: Medical - moderate - high VTE Device Contraindication: Treatment Not Indicated VTE Drug Contraindication: N/A - Med Ordered
[2022-04-26 11:34] VITALS: BP 82/54; PULSE 65; RESP 18; TEMP 36; O2SAT 100
--- NOTE | 2022-04-26 11:37 | W.MHC.ACPN ---
Advanced Care Planning Note Advanced Care Planning Note Discussed with: family member(s) Time spent (in minutes): 17 Narrative: discussed with HCP, patient's brother, Sarabjit, over the phone, due to HCP's medical issues unable to come in person. we discussed patient's diagnoses of HIV severe protein calorie malnutrition, FTT, and confusion due to toxoplasmosis. we discussed poor prognosis and patient's unwillingness to participate in medical care. HCP decided to opt for comfort measures only, will discontinue disease directed treatments and testing and focus on patient's comfort. plan if patient is stable to transfer to SNF for continued end of life care. Problems Discussed (1) Metabolic acidosis with normal anion gap and bicarbonate losses: (2) Hyponatremia: (3) Hyperkalemia: (4) Toxoplasmosis: (5) Acute kidney injury: (6) Pancytopenia:
[2022-04-26 12:00] LABS: Glucose, Whole Blood 63 mg/dL (60-115)
--- NOTE | 2022-04-26 13:15 | MHC.CM.PN ---
PLAN IS FOR HOSPICE AT FACILITY. [facility] UPDATED MESSAGE LEFT FOR LIAISON SUNNY AT [phone] MESSAGE ALSO LEFT FOR KINDERGARTEN TEACHER KEV @ [phone] REFERRAL ALSO UPDATED TO INCLUDE [facility] AND MESSAGE LEFT FOR THEIR LIAISON AT [phone] (VALERIY CARPENTER)
[2022-04-26] MEDS: 0.9 % Sodium Chloride Flush 3 ML SYRINGE IVFLUSH ×2 (15:07→21:08)
[2022-04-26 15:08] VITALS: RESP 16
[2022-04-26 16:19] LABS: Glucose, Whole Blood 61 mg/dL (60-115)
[2022-04-26] MEDS: Morphine Sulfate 2 MG/ML CARTRIDGE 1 MG IVPUSH ×2 (21:08→23:34)
[2022-04-26 23:34] VITALS: RESP 18
[2022-04-26 23:59] VITALS: RESP 18; O2SAT 95
[2022-04-27 03:51] VITALS: RESP 18; O2SAT 98
[2022-04-27] MEDS: LORazepam 2 MG/ML VIAL 0.5 MG IVPUSH (05:08)
--- NOTE | 2022-04-27 05:12 | PC.NURSE ---
Pt agitated and restless. Attempting to pull out mojica and IV. Moving all over the bed. Unable to redirect. Did not look like the Morphine earlier helped much. Dr notified and one time dose IV Ativan ordered and given. 1:1 remains at bedside. Will continue to monitor.
[2022-04-27] MEDS: 0.9 % Sodium Chloride Flush 3 ML SYRINGE IVFLUSH ×2 (07:24→15:42)
--- NOTE | 2022-04-27 08:24 | P.CONNP_ITS ---
History of Present Illness Reason for Consult Consult date: 04/27/22 Chief Complaint Chief complaint: WT LOSS,DIFF CARING FO SELF AT HOME Review of Systems Review of Systems Follow-up for severe protein calorie malnutrition, toxoplasmosis, AIDS weakness, poor appetite no pain, no shortness of breath; always cold, no fever Unwitnessed fall with no injury Yes all other systems are reviewed and are negative, Unobtainable due to mental condition and Unobtainable due to mental status Constitutional: Reports as per HPI, Reports no additional constitutional complaints, Denies chills, Denies fever(s) and Reports weakness Cardiovascular: Reports as per HPI, Reports no additional cardiovascular complaints, Denies chest pain, Denies palpitations and Denies dyspnea Respiratory: Reports as per HPI, Reports no additional respiratory complaints, Denies cough and Denies dyspnea Gastrointestinal: Reports as per HPI, Reports no additional gastrointestinal complaints, Denies abdominal pain, Denies nausea and Denies vomiting Genitourinary: Reports as per HPI Musculoskeletal: Reports no additional musculoskeletal complaints and Reports as per HPI Reports system reviewed and no additional complaints, except as documented, Reports as per HPI and Reports weakness Endocrine: Denies palpitations PMFSH Past Medical History Medical History Anxiety Depression Diabetes Drug abuse Hepatitis C HIV (human immunodeficiency virus infection) HTN (hypertension) MSSA bacteremia Family History Family History Father Alcoholism Mother Type 2 diabetes mellitus Sister No problems noted. Sister No problems noted. Brother No problems noted. Son No problems noted. Family history: reviewed and not pertinent Surgical History Surgical History History of repair of laceration Social History Social History Household Members: None Housing: Apartment Do you presently have visiting nurse or other home services: No Alcohol intake: current Alcohol intake frequency: holidays/special occasions only Patient Tobacco Use Status: Current everyday Tobacco user Cigarette Packs Per Day: 1 Cigarettes Per Day: 20.0 Years Smoked: 23 Second Hand Smoke Exposure: No Substance Use Type: Heroin service: No Current occupational status: unemployed Meds Allergies Allergy/AdvReac Type Severity Reaction Status Date / Time Sulfa (Sulfonamide Allergy Mild RASH Verified 11/02/20 10:47 Antibiotics) [Sulfa (Sulfonamides)] Active Medications: Current Medications Acetaminophen (Acetaminophen 325 Mg Tablet) 650 mg PO Q6H PRN PRN Reason: Pain, Mild (Pain Scale 1-3) Last Admin: 04/19/22 09:00 Dose: 650 mg Morphine Sulfate (Morphine Sulfate 2 Mg/Ml Cartridge) 1 mg IVPUSH Q2H PRN; Protocol PRN Reason: Breakthrough Pain Last Admin: 04/26/22 23:34 Dose: 1 mg Nicotine (Nicotine 21 Mg Patch.Td24) 21 mg TRANSDERMA DAILY [facility] Last Admin: 04/27/22 07:24 Dose: Not Given Ondansetron HCl (Ondansetron Hcl 4 Mg/2 Ml Vial) 4 mg IVPUSH Q8H PRN PRN Reason: Nausea and Vomiting Pharmacy Consult (Consult Rx Perform Med Rec) 1 each MISCELLANE ONCE PRN PRN Reason: Consult order Sodium Chloride (0.9 % Sodium Chloride Flush 3 Ml Syringe) 3 ml IVFLUSH QSHIFT [facility] Last Admin: 04/27/22 07:24 Dose: 3 ml Home Medications Medication Instructions Recorded Confirmed Last Taken Type albuterol sulfate 90 mcg/actuation 2 puff PO Q4-6H PRN Wheezing 04/08/22 04/08/22 Unknown History aerosol inhaler (Ventolin HFA) bictegravir 50 mg-emtricitabine 1 tab PO DAILY 04/08/22 04/08/22 Unknown History 200 mg-tenofovir alafenam 25 mg tablet (Biktarvy) fluticasone propionate 44 2 puff PO BID 04/08/22 04/08/22 Unknown History mcg/actuation HFA aerosol inhaler (Flovent HFA) insulin glargine 100 unit/mL 18 unit subcut BEDTIME 04/08/22 04/08/22 Unknown History subcutaneous solution (Lantus U-100 Insulin) metformin 850 mg tablet 1 tab PO BID 04/08/22 04/08/22 Unknown History Physical Exam Vital Signs: Last Vital Signs Temp 96.8 F 04/26/22 11:34 Pulse 65 04/26/22 11:34 Resp 18 04/27/22 03:51 BP 82/54 L 04/26/22 11:34 Pulse Ox 98 04/27/22 03:51 O2 Del Method 04/27/22 03:51 BMI result Body Mass Index 13.6 Const Other: bitemporal wasting General: cooperative, healthy appearing, comfortable, no acute distress, alert, awake and ill appearing Nutritional Appearance: cachectic and malnourished Orientation/consciousness: oriented to person, oriented to place and patient oriented x3 HEENT Other: bitemporal wasting Head: Yes normocephalic and Yes atraumatic Ears: external ears normal General nose exam: Normal external nose present Face and sinus: Yes normal facial exam Mouth: Normal oral and palatal mucosa present (thrush), moist mucous membranes and other ( very dry mucous membranes) Eyes General: appearance normal, both eyes and all related structures Corneas: corneas abnormal (left opacification cornea) Pupils: Equal, round and reactive pupils present EOM: EOMs intact bilaterally Neck Neck: Yes normal visual inspection, Yes full ROM, Yes no lymphadenopathy, Yes trachea midline, Yes supple and Yes no JVD Chest Chest palpation & inspection: normal inspection of the chest and normal palpation of entire chest wall Resp Effort & Inspection: normal respiratory effort, able to speak in complete sentences and no respiratory distress Auscultation: clear to auscultation bilaterally and diminished lung sounds Cardio Jugular venous distension: no JVD Palpation: no palpable S3 Rate: regular rate Rhythm: regular rhythm Heart sounds: S1 normal heart sound present, S2 normal heart sound present, no murmurs and no rubs GI Inspection: Yes normal to inspection and No distended Palpation (GI): Soft to palpation, nontender and no guarding Auscultation: normal bowel sounds Other: mojica in place draining clear yellow urine General: Yes no CVA tenderness Back/Spine/Pelvis Back: no CVA tenderness Cervical Spine: normal cervical lordosis Thoracic/Lumbar Spine: thoracic and lumbar spine normal to inspection Skin Other: Significant dehydration General skin exam: no rashes or lesions noted Neuro Other: He is alert and awake with normal spontaneity and fluency of speech. He is able to comprehend and answer simple questions and follow simple commands. He denied having any headache or discomfort. He seemed to have lost significant weight. Oral hygiene was poor and most teeth were missing. Visual ford on threat were okay. Face was symmetrical. There was no obvious focal arm or leg weakness. Deep tendon reflexes were absent with flexor plantars. General: oriented to person, oriented to place, patient oriented x3, tone normal, moves all extremities and no focal motor deficits Cranial nerves: Yes CN's II-XII intact bilaterally and Yes Equal, round and reactive pupils present Cognition (Neuro): normal cognition Motor exam (neuro): 5/5 motor strength present throughout and no asterixis Extrem General: Yes normal to inspection, Yes capillary refill normal, Yes no clubbing, cyanosis or edema and Yes no pedal edema Results Lab Results Result Diagrams: 04/26/22 05:19 04/26/22 05:19 Lab results: Chemistry 04/24/22 04/25/22 04/26/22 05:25 08:12 05:19 Sodium 115 L* 115 L* Potassium 5.3 H 4.9 Carbon Dioxide 18 L 19 L BUN 35 H 41 H Creatinine 1.68 H 1.57 H Calcium 8.3 L 8.4 Phosphorus 3.4 3.1 3.5 Hematology 04/25/22 04/26/22 08:12 05:19 WBC 2.7 L 2.1 L Hgb 7.8 L 7.5 L Plt Count 69 L TNP Assessment and Plan (1) Metabolic acidosis with normal anion gap and bicarbonate losses: Status: Acute (2) Hyponatremia: Status: Acute 1) Acute kidney injury: ?Status:?Acute Plan 1.Hypernatremia due to dehydration Now developed Hyponatremia restrict free h20 2.Hyperkalemia resolved 3.KATHERINE stable 4. HIV/AIDS / Toxoplasmosis 1,,2,and 3 due to BACTRIM Restrict hypotonic fluids Added UREA 30 gm PO BID Lokelma 10 gm PO dialy Consider alternative agents to Bactrim Restrict? 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 Adult failure to thrive Severe protein calorie malnutrition Pancytopenia Urinary retention DM Tobacco dependence will focus on comfort measures, dc antibiotics, antivirals. will stop further blood tests. plan for transfer to [facility] as comfort measures when available DNR/DNI reason for continued hospitalization: awaiting SNF Procedures Date of Service Date of Service: 04/27/22
[2022-04-27] MEDS: Morphine Sulfate 2 MG/ML CARTRIDGE 1 MG IVPUSH ×2 (08:40→10:38)
--- NOTE | 2022-04-27 09:44 | HO.PM.IMPN ---
Subjective Subjective Date of Service: 04/27/22 Interval History: cc: FTT interval history:confused, comfortable Cardiovascular Cardiovascular: Reports no additional cardiovascular complaints Respiratory Respiratory: Reports no additional respiratory complaints Physical Exam Vital Signs: Vital Signs: Last Vital Signs Temp 96.8 F 04/26/22 11:34 Pulse 65 04/26/22 11:34 Resp 18 04/27/22 03:51 BP 82/54 L 04/26/22 11:34 Pulse Ox 98 04/27/22 03:51 O2 Del Method 04/27/22 03:51 BMI result Body Mass Index 13.6 General: AO X 1, cachexic, ill appearing Resp: CTA bilateral, no accessory muscles used CVS: S1,S2,RRR GI: soft, non tender, non distended Neuro: motor grossly intact, alert Psych: imapired insight Objective Data Active Medications Acetaminophen (Acetaminophen 325 Mg Tablet) 650 mg PO Q6H PRN PRN Reason: Pain, Mild (Pain Scale 1-3) Last Admin: 04/19/22 09:00 Dose: 650 mg Documented By: JOANN Morphine Sulfate (Morphine Sulfate 2 Mg/Ml Cartridge) 1 mg IVPUSH Q2H PRN; Protocol PRN Reason: Breakthrough Pain Last Admin: 04/27/22 08:40 Dose: 1 mg Documented By: JOANN Nicotine (Nicotine 21 Mg Patch.Td24) 21 mg TRANSDERMA DAILY [facility] Last Admin: 04/27/22 07:24 Dose: Not Given Documented By: JOANN Non-Admin Reason: n/a Ondansetron HCl (Ondansetron Hcl 4 Mg/2 Ml Vial) 4 mg IVPUSH Q8H PRN PRN Reason: Nausea and Vomiting Pharmacy Consult (Consult Rx Perform Med Rec) 1 each MISCELLANE ONCE PRN PRN Reason: Consult order Sodium Chloride (0.9 % Sodium Chloride Flush 3 Ml Syringe) 3 ml IVFLUSH QSHIFT [facility] Last Admin: 04/27/22 07:24 Dose: 3 ml Documented By: JOANN Labs CBC & Chem 7: 04/26/22 05:19 04/26/22 05:19 Labs: Laboratory Results - last 24 hr 04/22/22 04/26/22 04/26/22 12:30 11:32 16:15 POC Glucose 63 61 Abnorm Protein Band 1 TNP Abnorm Protein Band 2 TNP Abnorm Protein Band 3 TNP Assessment and Plan (1) Metabolic acidosis with normal anion gap and bicarbonate losses: Status: Acute (2) Hyponatremia: Status: Acute (3) Hyperkalemia: Status: Acute (4) Toxoplasmosis: Status: Acute (5) Acute kidney injury: Status: Acute (6) Pancytopenia: Status: Acute Plan A 56-year-old male with a past medical history of HIV/AIDS , HCV, h/o substance abuse presents to the hospital after a neighbor was concerned that the patient was not taking care of himself, the patient was found to be significantly dehydrated--Clincal presentation consistent with advanced AIDS had discussion with brother, HCP, 04/26/22 (see ACP note), 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 Adult failure to thrive Severe protein calorie malnutrition Pancytopenia Urinary retention DM Tobacco dependence will focus on comfort measures, plan for transfer to [facility] as comfort measures when available DNR/DNI reason for continued hospitalization: awaiting SNF Quality Stroke Does the patient have a stroke diagnosis?: No VTE Prior VTE?: No VTE Risk Level:: Medical - moderate - high VTE Device Contraindication: Treatment Not Indicated VTE Drug Contraindication: N/A - Med Ordered
--- NOTE | 2022-04-27 12:08 | MHC.CLN ---
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 PICC LINE OUT 04/25/22 AND TPN DISCONTINUED. DIET=REGULAR. HX POOR INTAKE DURING AND PRIOR TO ADMISSION. DISLIKES SUPPLEMENTS. CONTINUE REGULAR DIET AND PROVIDE FOOD PREFERENCES ABLE. RD TO FOLLOW WEEKLY.
[2022-04-27] MEDS: Haloperidol Lactate 5 MG/ML VIAL IVPUSH (12:11)
[2022-04-27 16:00] VITALS: RESP 16
[2022-04-27 19:17] VITALS: PULSE 85; RESP 15
[2022-04-27 23:03] VITALS: PULSE 126; RESP 12
[2022-04-28] MEDS: 0.9 % Sodium Chloride Flush 3 ML SYRINGE IVFLUSH ×4 (01:09→23:54)
--- NOTE | 2022-04-28 07:30 | HO.PM.IMPN ---
Subjective Subjective Date of Service: 04/28/22 Interval History: cc: ftt interval history:appears comfortable Review of Systems Review of Systems: Yes Unobtainable due to mental condition Physical Exam Vital Signs: Vital Signs: Last Vital Signs Temp 96.8 F 04/26/22 11:34 Pulse 126 H 04/27/22 23:03 Resp 12 04/27/22 23:03 BP 82/54 L 04/26/22 11:34 Pulse Ox 98 04/27/22 03:51 O2 Del Method 04/27/22 03:51 BMI result Body Mass Index 13.6 General: AO X 1, cachexic, ill appearing Resp: CTA bilateral, no accessory muscles used CVS: S1,S2,RRR GI: soft, non tender, non distended Neuro: motor grossly intact, alert Psych: imapired insight Objective Data Active Medications Acetaminophen (Acetaminophen 325 Mg Tablet) 650 mg PO Q6H PRN PRN Reason: Pain, Mild (Pain Scale 1-3) Last Admin: 04/19/22 09:00 Dose: 650 mg Documented By: JOANN Haloperidol Lactate (Haloperidol Lactate 5 Mg/Ml Vial) 0.5 mg IVPUSH Q4H PRN PRN Reason: agitation Last Admin: 04/27/22 12:11 Dose: 0.5 mg Documented By: JOANN Morphine Sulfate (Morphine Sulfate 2 Mg/Ml Cartridge) 1 mg IVPUSH Q2H PRN; Protocol PRN Reason: Breakthrough Pain Last Admin: 04/27/22 10:38 Dose: 1 mg Documented By: JOANN Nicotine (Nicotine 21 Mg Patch.Td24) 21 mg TRANSDERMA DAILY [facility] Last Admin: 04/27/22 07:24 Dose: Not Given Documented By: JOANN Non-Admin Reason: n/a Ondansetron HCl (Ondansetron Hcl 4 Mg/2 Ml Vial) 4 mg IVPUSH Q8H PRN PRN Reason: Nausea and Vomiting Pharmacy Consult (Consult Rx Perform Med Rec) 1 each MISCELLANE ONCE PRN PRN Reason: Consult order Sodium Chloride (0.9 % Sodium Chloride Flush 3 Ml Syringe) 3 ml IVFLUSH QSHIFT [facility] Last Admin: 04/28/22 01:09 Dose: 3 ml Documented By: CHRISTO Labs CBC & Chem 7: 04/26/22 05:19 04/26/22 05:19 Labs: Laboratory Results - last 24 hr 04/22/22 04/22/22 12:30 12:30 Abnorm Protein Band 1 TNP Abnorm Protein Band 2 TNP Abnorm Protein Band 3 TNP Aldosterone <1 Assessment and Plan (1) Metabolic acidosis with normal anion gap and bicarbonate losses: Status: Acute (2) Hyponatremia: Status: Acute (3) Hyperkalemia: Status: Acute (4) Toxoplasmosis: Status: Acute (5) Acute kidney injury: Status: Acute (6) Pancytopenia: Status: Acute Plan A 56-year-old male with a past medical history of HIV/AIDS , HCV, h/o substance abuse presents to the hospital after a neighbor was concerned that the patient was not taking care of himself, the patient was found to be significantly dehydrated--Clincal presentation consistent with advanced AIDS had discussion with brother, HCP, 04/26/22 (see ACP note), 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 Adult failure to thrive Severe protein calorie malnutrition Pancytopenia Urinary retention DM Tobacco dependence will focus on comfort measures, plan for transfer to [facility] as comfort measures when available continue prn morphine, haldol DNR/DNI reason for continued hospitalization: awaiting SNF Quality Stroke Does the patient have a stroke diagnosis?: No VTE Prior VTE?: No VTE Risk Level:: Medical - moderate - high VTE Device Contraindication: Treatment Not Indicated VTE Drug Contraindication: N/A - Med Ordered
--- NOTE | 2022-04-28 08:19 | PM.PNNEP ---
Subjective Subjective Date of Service: 04/28/22 Interval history: cc: ftt interval history:appears comfortable Physical Exam Vital Signs: Vital Signs: Last Vital Signs Temp 96.8 F 04/26/22 11:34 Pulse 126 H 04/27/22 23:03 Resp 12 04/27/22 23:03 BP 82/54 L 04/26/22 11:34 Pulse Ox 98 04/27/22 03:51 O2 Del Method 04/27/22 03:51 BMI result Body Mass Index 13.6 Const: Other: bitemporal wasting General: cooperative, healthy appearing, comfortable, no acute distress, alert, awake and ill appearing Nutritional Appearance: cachectic and malnourished Orientation/consciousness: oriented to person, oriented to place and patient oriented x3 HEENT: Other: bitemporal wasting Head: Yes normocephalic and Yes atraumatic Ears: external ears normal General nose exam: Normal external nose present Face and sinus: Yes normal facial exam Mouth: Normal oral and palatal mucosa present (thrush), moist mucous membranes and other ( very dry mucous membranes) Eyes: General: appearance normal, both eyes and all related structures Corneas: corneas abnormal (left opacification cornea) Pupils: Equal, round and reactive pupils present EOM: EOMs intact bilaterally Neck: Neck: Yes normal visual inspection, Yes full ROM, Yes no lymphadenopathy, Yes trachea midline, Yes supple and Yes no JVD Chest: Chest palpation & inspection: normal inspection of the chest and normal palpation of entire chest wall Resp: Effort & Inspection: normal respiratory effort, able to speak in complete sentences and no respiratory distress Auscultation: clear to auscultation bilaterally and diminished lung sounds Cardio: Jugular venous distension: no JVD Palpation: no palpable S3 Rate: regular rate Rhythm: regular rhythm Heart sounds: S1 normal heart sound present, S2 normal heart sound present, no murmurs and no rubs GI: Inspection: Yes normal to inspection and No distended Palpation (GI): Soft to palpation, nontender and no guarding Auscultation: normal bowel sounds : Other: mojica in place draining clear yellow urine General: Yes no CVA tenderness Back/Spine/Pelvis: Back: no CVA tenderness Cervical Spine: normal cervical lordosis Thoracic/Lumbar Spine: thoracic and lumbar spine normal to inspection Skin: Other: Significant dehydration General skin exam: no rashes or lesions noted Neuro: Other: He is alert and awake with normal spontaneity and fluency of speech. He is able to comprehend and answer simple questions and follow simple commands. He denied having any headache or discomfort. He seemed to have lost significant weight. Oral hygiene was poor and most teeth were missing. Visual ford on threat were okay. Face was symmetrical. There was no obvious focal arm or leg weakness. Deep tendon reflexes were absent with flexor plantars. General: oriented to person, oriented to place, patient oriented x3, tone normal, moves all extremities and no focal motor deficits Cranial nerves: Yes CN's II-XII intact bilaterally and Yes Equal, round and reactive pupils present Cognition (Neuro): normal cognition Motor exam (neuro): 5/5 motor strength present throughout and no asterixis Extrem: General: Yes normal to inspection, Yes capillary refill normal, Yes no clubbing, cyanosis or edema and Yes no pedal edema Objective Data Labs CBC & Chem 7: 04/26/22 05:19 04/26/22 05:19 Labs: Laboratory Results - last 24 hr 04/22/22 04/22/22 12:30 12:30 Abnorm Protein Band 1 TNP Abnorm Protein Band 2 TNP Abnorm Protein Band 3 TNP Aldosterone <1 Microbiology Microbiology Results: Microbiology 04/13/22 03:51 Blood - Venous Blood Culture - Final No growth after 5 days. 04/13/22 03:51 Blood - Venous Blood Culture - Final No growth after 5 days. 04/10/22 20:00 Urine clean catch - Urine hardin top Urine Culture - Final Procedures Date of Service Date of Service: 04/28/22 Assessment & Plan Assessment and plan (1) Metabolic acidosis with normal anion gap and bicarbonate losses: Status: Acute (2) Hyponatremia: Status: Acute (3) Hyperkalemia: Status: Acute (4) Toxoplasmosis: Status: Acute (5) Acute kidney injury: Status: Acute (6) Pancytopenia: Status: Acute Plan A 56-year-old male with a past medical history of HIV/AIDS , HCV, h/o substance abuse presents to the hospital after a neighbor was concerned that the patient was not taking care of himself, the patient was found to be significantly dehydrated--Clincal presentation consistent with advanced AIDS had discussion with brother, HCP, 04/26/22 (see ACP note), 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 Adult failure to thrive Severe protein calorie malnutrition stable electrolyte disorders no new suggestions Time Spent With Patient Time: Total time spent is greater than 50% in coordination of care (as documented) at patient's floor/unit and/or counseling patient: Progress Note: Quality Stroke Does the patient have a stroke diagnosis?: No
--- NOTE | 2022-04-28 10:02 | MHC.CM.PN ---
SISTER ENEIDA ([id number]) UPDATED WITH PATIENT STATUS. CONVERSATION HAD WITH [facility].
[2022-04-28 16:00] VITALS: RESP 16
[2022-04-28 23:29] VITALS: RESP 12
[2022-04-28] MEDS: Haloperidol Lactate 5 MG/ML VIAL IVPUSH (23:59)
[2022-04-29 01:31] VITALS: RESP 18
[2022-04-29] MEDS: Morphine Sulfate 2 MG/ML CARTRIDGE 1 MG IVPUSH ×2 (01:31→16:29)
[2022-04-29] MEDS: 0.9 % Sodium Chloride Flush 3 ML SYRINGE IVFLUSH ×3 (07:32→20:07)
--- NOTE | 2022-04-29 08:59 | P.PNIM_ITS ---
Subjective Subjective Date of Service: 04/29/22 Interval History: cc: ftt interval history:appears comfortable Review of Systems Review of Systems: Yes Unobtainable due to mental condition Physical Exam Vital Signs: Vital Signs: Last Vital Signs Temp 96.8 F 04/26/22 11:34 Pulse 126 H 04/27/22 23:03 Resp 18 04/29/22 01:31 BP 82/54 L 04/26/22 11:34 Pulse Ox 98 04/27/22 03:51 O2 Del Method 04/27/22 03:51 BMI result Body Mass Index 13.6 General: obtunded, cachexic, ill appearing Resp: CTA bilateral, no accessory muscles used CVS: S1,S2,RRR GI: soft, non tender, non distended Neuro: motor grossly intact, obtunded Psych: imapired insight Objective Data Active Medications Acetaminophen (Acetaminophen 325 Mg Tablet) 650 mg PO Q6H PRN PRN Reason: Pain, Mild (Pain Scale 1-3) Last Admin: 04/19/22 09:00 Dose: 650 mg Documented By: JOANN Haloperidol Lactate (Haloperidol Lactate 5 Mg/Ml Vial) 0.5 mg IVPUSH Q4H PRN PRN Reason: agitation Last Admin: 04/28/22 23:59 Dose: 0.5 mg Documented By: LAURA Morphine Sulfate (Morphine Sulfate 2 Mg/Ml Cartridge) 1 mg IVPUSH Q2H PRN; Protocol PRN Reason: Breakthrough Pain Last Admin: 04/29/22 01:31 Dose: 1 mg Documented By: LAURA Nicotine (Nicotine 21 Mg Patch.Td24) 21 mg TRANSDERMA DAILY [facility] Last Admin: 04/29/22 07:53 Dose: Not Given Documented By: LEXUS Non-Admin 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: audit senior associate Ondansetron HCl (Ondansetron Hcl 4 Mg/2 Ml Vial) 4 mg IVPUSH Q8H PRN PRN Reason: Nausea and Vomiting Pharmacy Consult (Consult Rx Perform Med Rec) 1 each MISCELLANE ONCE PRN PRN Reason: Consult order Sodium Chloride (0.9 % Sodium Chloride Flush 3 Ml Syringe) 3 ml IVFLUSH QSHIFT [facility] Last Admin: 04/29/22 07:32 Dose: 3 ml Documented By: LEXUS Labs CBC & Chem 7: 04/26/22 05:19 04/26/22 05:19 Assessment and Plan (1) Metabolic acidosis with normal anion gap and bicarbonate losses: Status: Acute (2) Hyponatremia: Status: Acute (3) Hyperkalemia: Status: Acute (4) Toxoplasmosis: Status: Acute (5) Acute kidney injury: Status: Acute (6) Pancytopenia: Status: Acute Plan A 56-year-old male with a past medical history of HIV/AIDS , HCV, h/o substance abuse presents to the hospital after a neighbor was concerned that the patient was not taking care of himself, the patient was found to be significantly dehydrated--Clincal presentation consistent with advanced AIDS had discussion with brother, HCP, 04/26/22 (see ACP note), 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 Adult failure to thrive Severe protein calorie malnutrition Pancytopenia Urinary retention DM Tobacco dependence will focus on comfort measures, plan for transfer to [facility] as comfort measures when available continue prn morphine, haldol DNR/DNI reason for continued hospitalization: awaiting SNF Quality Stroke Does the patient have a stroke diagnosis?: No VTE Prior VTE?: No VTE Risk Level:: Medical - moderate - high VTE Device Contraindication: Treatment Not Indicated VTE Drug Contraindication: N/A - Med Ordered
--- NOTE | 2022-04-29 09:02 | MHC.CM.PN ---
MULTIPLE MESSAGES SENT TO [facility] REGARDING PTS READINESS TO DISCHARGE. [facility] HAS NOT RESPONDED TO ANY MESSAGES SINCE 04/20/22. UNFORTUNATELY, [facility] IS THE ONLY FACILITY THAT HAS OFFERED A BED AT THIS TIME. UPDATES ALSO SENT TO [facility] THEY HAVE BEEN FOLLOWING. PT IS READY TO DC TO A SNF FICTION AND NONFICTION AUTHOR SOON A BED IS SECURED.
[2022-04-29 16:00] VITALS: RESP 15
--- NOTE | 2022-04-30 01:06 | PC.NURSE ---
Noted with 2 areas of pressure ulcer mid back, foam dressing applied, repositioned frequently.
[2022-04-30 07:43] VITALS: RESP 12
[2022-04-30] MEDS: 0.9 % Sodium Chloride Flush 3 ML SYRINGE IVFLUSH ×3 (09:19→19:48)
--- NOTE | 2022-04-30 14:17 | P.PNIM_ITS ---
Subjective Subjective Date of Service: 04/30/22 Interval History: Seen and examined this morning Awake, Appears comfortable Review of Systems Review of Systems: Yes Unobtainable due to mental condition Constitutional Constitutional: Reports chills and Reports fever(s) Respiratory Respiratory: Reports cough Physical Exam Vital Signs: Vital Signs: Last Vital Signs Temp 96.8 F 04/26/22 11:34 Pulse 126 H 04/27/22 23:03 Resp 12 04/30/22 07:43 BP 82/54 L 04/26/22 11:34 Pulse Ox 98 04/27/22 03:51 O2 Del Method 04/27/22 03:51 BMI result Body Mass Index 13.6 Const: Other: awake, resting in bed appears comfortable breathing easy, no distress Objective Data Active Medications Acetaminophen (Acetaminophen 325 Mg Tablet) 650 mg PO Q6H PRN PRN Reason: Pain, Mild (Pain Scale 1-3) Last Admin: 04/19/22 09:00 Dose: 650 mg Documented By: JOANN Haloperidol Lactate (Haloperidol Lactate 5 Mg/Ml Vial) 0.5 mg IVPUSH Q4H PRN PRN Reason: agitation Last Admin: 04/28/22 23:59 Dose: 0.5 mg Documented By: LAURA Morphine Sulfate (Morphine Sulfate 2 Mg/Ml Cartridge) 1 mg IVPUSH Q2H PRN; Protocol PRN Reason: Breakthrough Pain Last Admin: 04/29/22 16:29 Dose: 1 mg Documented By: LEXUS Nicotine (Nicotine 21 Mg Patch.Td24) 21 mg TRANSDERMA DAILY [facility] Last Admin: 04/30/22 09:19 Dose: Not Given Documented By: GRECIA Non-Admin Reason: taxicab coordinator Ondansetron HCl (Ondansetron Hcl 4 Mg/2 Ml Vial) 4 mg IVPUSH Q8H PRN PRN Reason: Nausea and Vomiting Pharmacy Consult (Consult Rx Perform Med Rec) 1 each MISCELLANE ONCE PRN PRN Reason: Consult order Sodium Chloride (0.9 % Sodium Chloride Flush 3 Ml Syringe) 3 ml IVFLUSH QSHIFT [facility] Last Admin: 04/30/22 09:19 Dose: 3 ml Documented By: GRECIA Labs CBC & Chem 7: 04/26/22 05:19 04/26/22 05:19 Assessment and Plan (1) Toxoplasmosis: Status: Acute (2) AIDS: Status: Acute Plan A 56-year-old male with a past medical history of HIV/AIDS , HCV, h/o substance abuse presents to the hospital after a neighbor was concerned that the patient was not taking care of himself, the patient was found to be significantly dehydrated--Clincal presentation consistent with advanced AIDS had discussion with brother, HCP, 04/26/22 (see ACP note), 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 Adult failure to thrive Severe protein calorie malnutrition Pancytopenia Urinary retention DM Tobacco dependence will focus on comfort measures, plan for transfer to [facility] as comfort measures when available continue prn morphine, haldol DNR/DNI reason for continued hospitalization: awaiting SNF Quality Stroke Does the patient have a stroke diagnosis?: No VTE Prior VTE?: No VTE Risk Level:: Medical - moderate - high VTE Device Contraindication: Treatment Not Indicated VTE Drug Contraindication: N/A - Med Ordered
[2022-04-30 15:26] VITALS: RESP 15
--- NOTE | 2022-04-30 15:31 | MHC.CM.PN ---
This CM called pt's sister, Kassandra, in [place] as she is requesting a status update on pt. (sister is Divehi speaking only). She was informed pt's status remains the same. She is asking if she will be able to have a face to face Phone visit with him tomorrow, as she was informed it may be possible. She was informed pt's CM will be notified of the request. This CM notified pt's CM of phone conversation with pt's sister.
--- NOTE | 2022-04-30 15:57 | MHC.CM.PN ---
PT IS READY FOR DC ONCE A BED IS SECURED PT IS CARE CONNECTOR STATUS. UPDATES SENT AND REFERRAL EXPANDED 50 MILES
[2022-04-30 23:58] VITALS: TEMP 34.8
[2022-05-01] MEDS: 0.9 % Sodium Chloride Flush 3 ML SYRINGE IVFLUSH ×3 (08:08→23:54)
[2022-05-01] MEDS: Morphine Sulfate 2 MG/ML CARTRIDGE 1 MG IVPUSH (09:18)
--- NOTE | 2022-05-01 12:05 | P.PNIM_ITS ---
Subjective Subjective Date of Service: 05/01/22 Interval History: Unable to provide any answers Looks overall comfortable Not following any commands Review of Systems Review of Systems: Yes Unobtainable due to mental status Physical Exam Vital Signs: Vital Signs: Last Vital Signs Temp 94.7 F L 04/30/22 23:58 Pulse 126 H 04/27/22 23:03 Resp 15 04/30/22 15:26 BP 82/54 L 04/26/22 11:34 Pulse Ox 98 04/27/22 03:51 O2 Del Method 04/27/22 03:51 BMI result Body Mass Index 13.6 Const: Other: Alert, lethargic Does not seem in distress Cold lower extremities Objective Data Active Medications Acetaminophen (Acetaminophen 325 Mg Tablet) 650 mg PO Q6H PRN PRN Reason: Pain, Mild (Pain Scale 1-3) Last Admin: 04/19/22 09:00 Dose: 650 mg Documented By: JOANN Haloperidol Lactate (Haloperidol Lactate 5 Mg/Ml Vial) 0.5 mg IVPUSH Q4H PRN PRN Reason: agitation Last Admin: 04/28/22 23:59 Dose: 0.5 mg Documented By: LAURA Morphine Sulfate (Morphine Sulfate 2 Mg/Ml Cartridge) 1 mg IVPUSH Q2H PRN; Protocol PRN Reason: Breakthrough Pain Last Admin: 05/01/22 09:18 Dose: 1 mg Documented By: JOANN Nicotine (Nicotine 21 Mg Patch.Td24) 21 mg TRANSDERMA DAILY [facility] Last Admin: 05/01/22 08:09 Dose: Not Given Documented By: JOANN Non-Admin Reason: n/a Ondansetron HCl (Ondansetron Hcl 4 Mg/2 Ml Vial) 4 mg IVPUSH Q8H PRN PRN Reason: Nausea and Vomiting Pharmacy Consult (Consult Rx Perform Med Rec) 1 each MISCELLANE ONCE PRN PRN Reason: Consult order Sodium Chloride (0.9 % Sodium Chloride Flush 3 Ml Syringe) 3 ml IVFLUSH QSHIFT [facility] Last Admin: 05/01/22 08:08 Dose: 3 ml Documented By: JOANN Labs CBC & Chem 7: 04/26/22 05:19 04/26/22 05:19 Assessment and Plan (1) Toxoplasmosis: Status: Acute Plan A 56-year-old male with a past medical history of HIV/AIDS , HCV, h/o substance abuse presents to the hospital after a neighbor was concerned that the patient was not taking care of himself, the patient was found to be significantly dehydrated--Clincal presentation consistent with advanced AIDS had discussion with brother, HCP, 04/26/22 (see ACP note), 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 Adult failure to thrive Severe protein calorie malnutrition Pancytopenia Urinary retention DM Tobacco dependence comfort measures for now plan for transfer to [facility] as comfort measures when available continue prn morphine, haldol DNR/DNI reason for continued hospitalization: awaiting SNF Quality Stroke Does the patient have a stroke diagnosis?: No VTE Prior VTE?: No VTE Risk Level:: Medical - moderate - high VTE Device Contraindication: Treatment Not Indicated VTE Drug Contraindication: N/A - Med Ordered
--- NOTE | 2022-05-01 15:45 | MHC.CM.PN ---
This CM and RN JENNIFER Church called and spoke with pt's sisters (both Chadian speaking) Macrina and Kassandra to inform of pt status. Informed them pt is comfort measures only and is actively dying and is unable to communicate; Family was expecting a face to face call with him. Both sisters verbalized understanding and requested a call once pt. passes. Neither family member had any questions.
--- NOTE | 2022-05-01 15:59 | MHC.CM.PN ---
[facility] UPDATE WITH MED LIST [facility] AND [facility] ASKED IF PATIENT WAS STILL ON TPN. UPDATES SENT TO THE THREE FACILITIES.
[2022-05-01 23:58] VITALS: BP 64/44; PULSE 67; RESP 14; O2SAT 100
[2022-05-02] MEDS: 0.9 % Sodium Chloride Flush 3 ML SYRINGE IVFLUSH ×2 (09:43→15:07)
--- NOTE | 2022-05-02 12:59 | MHC.CM.PN ---
JENNIFER returned phone call to pt's sister, Kassandra [phone]. Kassandra requesting face to face (IPAD) with pt. CM ice house supervisor informed of request. Temperature Inspector will call Kassandra later this afternoon and assist with the face to face. JENNIFER callled Kassandra and provided information, she will wait for the call.
--- NOTE | 2022-05-02 13:13 | HO.PM.IMPN ---
Subjective Subjective Date of Service: 05/02/22 Interval History: Unable to provide any answers Looks overall comfortable Not following any commands Review of Systems Review of Systems: Yes Unobtainable due to mental status Physical Exam Vital Signs: Vital Signs: Last Vital Signs Temp 94.7 F L 04/30/22 23:58 Pulse 67 05/01/22 23:58 Resp 14 05/01/22 23:58 BP 64/44 L 05/01/22 23:58 Pulse Ox 100 05/01/22 23:58 O2 Del Method 05/01/22 23:58 BMI result Body Mass Index 13.6 Const: Other: Alert, lethargic Does not seem in distress Cold lower extremities Objective Data Active Medications Acetaminophen (Acetaminophen 325 Mg Tablet) 650 mg PO Q6H PRN PRN Reason: Pain, Mild (Pain Scale 1-3) Last Admin: 04/19/22 09:00 Dose: 650 mg Documented By: JOANN Haloperidol Lactate (Haloperidol Lactate 5 Mg/Ml Vial) 0.5 mg IVPUSH Q4H PRN PRN Reason: agitation Last Admin: 04/28/22 23:59 Dose: 0.5 mg Documented By: LAURA Morphine Sulfate (Morphine Sulfate 2 Mg/Ml Cartridge) 2 mg IVPUSH Q2H PRN; Protocol PRN Reason: Pain, Moderate (Pain Scale 4-6 Nicotine (Nicotine 21 Mg Patch.Td24) 21 mg TRANSDERMA DAILY [facility] Last Admin: 05/02/22 09:45 Dose: Not Given Documented By: MARY Non-Admin Reason: n/a Ondansetron HCl (Ondansetron Hcl 4 Mg/2 Ml Vial) 4 mg IVPUSH Q8H PRN PRN Reason: Nausea and Vomiting Pharmacy Consult (Consult Rx Perform Med Rec) 1 each MISCELLANE ONCE PRN PRN Reason: Consult order Sodium Chloride (0.9 % Sodium Chloride Flush 3 Ml Syringe) 3 ml IVFLUSH QSHIFT [facility] Last Admin: 05/02/22 09:43 Dose: 3 ml Documented By: MARY Labs CBC & Chem 7: 04/26/22 05:19 04/26/22 05:19 Assessment and Plan (1) Toxoplasmosis: Status: Acute Plan A 56-year-old male with a past medical history of HIV/AIDS , HCV, h/o substance abuse presents to the hospital after a neighbor was concerned that the patient was not taking care of himself, the patient was found to be significantly dehydrated--Clincal presentation consistent with advanced AIDS had discussion with brother, HCP, 04/26/22 (see ACP note), 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 Adult failure to thrive Severe protein calorie malnutrition Pancytopenia Urinary retention DM Tobacco dependence comfort measures for now plan for transfer to longterm as comfort measures when available continue prn morphine, haldol DNR/DNI reason for continued hospitalization: awaiting SNF Quality Stroke Does the patient have a stroke diagnosis?: No VTE Prior VTE?: No VTE Risk Level:: Medical - moderate - high VTE Device Contraindication: Treatment Not Indicated VTE Drug Contraindication: N/A - Med Ordered
[2022-05-02] MEDS: Morphine Sulfate 2 MG/ML CARTRIDGE IVPUSH (15:12)
[2022-05-02 16:00] VITALS: BP 81/41; RESP 66; TEMP 35.9; O2SAT 100
[2022-05-02 23:43] VITALS: BP 70/42; PULSE 66; O2SAT 100
[2022-05-03] MEDS: 0.9 % Sodium Chloride Flush 3 ML SYRINGE IVFLUSH ×3 (10:50→20:01)
[2022-05-03] MEDS: Morphine Sulfate 2 MG/ML CARTRIDGE IVPUSH ×3 (10:51→20:00)
[2022-05-03] MEDS: Nicotine 21 MG PATCH.TD24 TRANSDERMA (10:51)
--- NOTE | 2022-05-03 11:24 | P.PNIM_ITS ---
Subjective Subjective Date of Service: 05/03/22 Interval History: Unable to provide any answers Looks overall comfortable Not following any commands Physical Exam Vital Signs: Vital Signs: Last Vital Signs Temp 96.7 F L 05/02/22 16:00 Pulse 66 05/02/22 23:43 Resp 66 H 05/02/22 16:00 BP 70/42 L 05/02/22 23:43 Pulse Ox 100 05/02/22 23:43 O2 Del Method 05/02/22 23:43 BMI result Body Mass Index 13.6 Const: Other: Alert, lethargic Does not seem in distress Cold lower extremities Objective Data Active Medications Acetaminophen (Acetaminophen 325 Mg Tablet) 650 mg PO Q6H PRN PRN Reason: Pain, Mild (Pain Scale 1-3) Last Admin: 04/19/22 09:00 Dose: 650 mg Documented By: JOANN Haloperidol Lactate (Haloperidol Lactate 5 Mg/Ml Vial) 0.5 mg IVPUSH Q4H PRN PRN Reason: agitation Last Admin: 04/28/22 23:59 Dose: 0.5 mg Documented By: LAURA Morphine Sulfate (Morphine Sulfate 2 Mg/Ml Cartridge) 2 mg IVPUSH Q2H PRN; Protocol PRN Reason: Pain, Moderate (Pain Scale 4-6 Last Admin: 05/03/22 10:51 Dose: 2 mg Documented By: DARNELL Nicotine (Nicotine 21 Mg Patch.Td24) 21 mg TRANSDERMA DAILY [facility] Last Admin: 05/03/22 10:51 Dose: 21 mg Documented By: DARNELL Ondansetron HCl (Ondansetron Hcl 4 Mg/2 Ml Vial) 4 mg IVPUSH Q8H PRN PRN Reason: Nausea and Vomiting Pharmacy Consult (Consult Rx Perform Med Rec) 1 each MISCELLANE ONCE PRN PRN Reason: Consult order Sodium Chloride (0.9 % Sodium Chloride Flush 3 Ml Syringe) 3 ml IVFLUSH QSHIFT [facility] Last Admin: 05/03/22 10:50 Dose: 3 ml Documented By: DARNELL Labs CBC & Chem 7: 04/26/22 05:19 04/26/22 05:19 Assessment and Plan (1) Toxoplasmosis: Status: Acute (2) Brain lesion: Status: Acute Plan A 56-year-old male with a past medical history of HIV/AIDS , HCV, h/o substance abuse presents to the hospital after a neighbor was concerned that the patient was not taking care of himself, the patient was found to be significantly dehydrated--Clincal presentation consistent with advanced AIDS had discussion with brother, HCP, 04/26/22 (see ACP note), changed to [employer] Hyperkalemia Hyponatremia Oral thrush 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 Adult failure to thrive Severe protein calorie malnutrition Pancytopenia Urinary retention DM Tobacco dependence comfort measures for now plan for transfer to [facility] as comfort measures when available continue prn morphine, haldol DNR/DNI reason for continued hospitalization: awaiting SNF Quality Stroke Does the patient have a stroke diagnosis?: No VTE Prior VTE?: No VTE Risk Level:: Medical - moderate - high VTE Device Contraindication: Treatment Not Indicated VTE Drug Contraindication: N/A - Med Ordered
[2022-05-03 16:00] VITALS: BP 70/40; O2SAT 99
[2022-05-03 20:02] VITALS: RESP 21
[2022-05-03 23:45] VITALS: RESP 19
--- NOTE | 2022-05-04 02:02 | PM.EVENT ---
Event Note Date of Service: 05/04/22 Event Note: pt at 1:15am
--- NOTE | 2022-05-04 03:29 | PC.NURSE ---
PT on [employer] found unresponsive at 0115 MD Black notiifed for pronouncement, Organ donor bank notified, PT not a candidate, PT brother Sarabjit notified of PT , declined visit and need to call back with home for PT.
--- NOTE | 2022-05-04 07:17 | PM.DS ---
DS: Providers Provider Date of Service: 05/04/22 Date of admission: 04/08/22 20:26 Primary care physician: None Physician Consults: 04/08/22 20:14 Consult to Care Team Routine Comment: Reason for consultation: IV drug abuse 04/09/22 11:08 Consult to Infectious Diseases Routine Consulting Provider: Karnia aMx Reason for consultation: HIV/AIDs Has provider been notified: No Consult to Nephrology Routine Consulting Provider: Yonathan Lambert Reason for consultation: trevin, high Na Has provider been notified: No 04/13/22 22:41 Consult to Infectious Diseases Routine Consulting Provider: Karina Max Reason for consultation: mri concerning for toxo Has provider been notified: No 04/16/22 14:16 Consult to Urology Routine Consulting Provider: Luis Levy Reason for consultation: Urinary retention from paraphymosis 04/18/22 13:57 Consult to Neurology Routine Consulting Provider: [facility] Reason for consultation: Abnormal brain MRI ? toxoplasmosis and hemorrhage Has provider been notified: No DS: Diagnosis Discharge Diagnosis (1) Toxoplasmosis: Status: Acute (2) Brain lesion: Status: Acute (3) Metabolic acidosis with normal anion gap and bicarbonate losses: Status: Acute (4) Hyponatremia: Status: Acute (5) Hyperkalemia: Status: Acute (6) Acute kidney injury: Status: Acute (7) Pancytopenia: Status: Acute (8) Paraphimosis: Status: Acute (9) Urinary retention with incomplete bladder emptying: Status: Acute (10) Adult failure to thrive: Status: Acute (11) Acute dehydration: Status: Acute (12) Volume depletion: Status: Acute (13) Thrush, oral: Status: Acute (14) Acute renal failure: Status: Acute DS: Summary Hospital Course Hospital Course: For full details please returned to full EMR. Admission note HPI This is a 56-year-old male with past medical history of HIV, hepatitis-C, diabetes, HTN, who was brought into the hospital via EMS after his neighbor was concerned that patient is not taking care himself.? Patient is significantly cachectic, appears very dehydrated, answer some questions and ignores some others, answers by moving his head yes and no,? according to ED physician patient reported on arrival that he has been abusing heroin and alcohol daily.patient? patient on arrival was found to be hypotensive, his labs were found to be significant for hemoglobin 12.4, sodium of 147, chloride of 118, BUN of 129, creatinine of 3.04, high troponin of 35.3, chest x-ray negative. ? After initial IV? resuscitation patient refused further lab work, Vera catheter insertion for urine as he is incontinent of urine, he refuse head CT be, diffuse abdominal CT.? I spoke to the patient twice in 2 consider acute of episodes and patient continued to refuse but he is agreeable to admission. ? Unable to obtain full review of system due to medical condition.? Hospital course A 56-year-old male with a past medical history of HIV/AIDS , HCV, h/o substance abuse presents to the hospital after a neighbor was concerned that the patient was not taking care of himself, the patient was found to be significantly dehydrated--Clincal presentation consistent with advanced AIDS. The patient was evaluated by infectious disease specialist for a normal brain images suggestive of possible toxoplasmosis. He was noticed to have acute kidney injury with metabolic acidosis and hyperkalemia. Neurology evaluated the patient for evidence of brain hemorrhage who total is a result of toxoplasmosis as well and advanced AIDS. His hospital stay was complicated by hypotension, decreased oral intake, urinary retention and oral thrush with 6 with ID imbalance of hyperkalemia and hyponatremia. Discussions about goals of care with his HCP was done with decision to seek comfort measures which was started on 04/26/2022. The patient was comfortable with the rest of hospital stay and on 05/04/2022 at 01:15. Time Spent with Patient Time attestation: Total time spent providing and/or coordinating discharge services: Discharge coordination time: Greater than 30 minutes Quality: Safe Use of Opioids Does Pt have an Active Cancer Diagnosis on the Problem List?: No Quality: Stroke Does the patient have a stroke diagnosis?: No Physical Exam Vital Signs: Vital Signs: Last Vital Signs Temp 96.7 F L 05/02/22 16:00 Pulse 66 05/02/22 23:43 Resp 19 05/03/22 23:45 BP 70/40 L 05/03/22 16:00 Pulse Ox 99 05/03/22 16:00 O2 Del Method 05/03/22 16:00 BMI result Body Mass Index 13.6 Const: Other: DS: Data Data Completed and Pending Completed studies during hospitalization [Text1]: Procedures Drainage of Right Knee Joint, Percutaneous Approach (10/27/20) Drainage of Right Knee Joint, Percutaneous Endoscopic Approach (10/27/20) Drainage of Right Lower Leg Muscle, Percutaneous Approach (10/27/20) Insertion of Infusion Device into Superior Vena Cava, Percutaneous Approach (10/27/20) Ultrasonography of Superior Vena Cava, Guidance (10/27/20) Imaging MRI - head: Radiologist's impression: ITS Impressions Chest X-Ray 04/08/22 14:35 IMPRESSION: Unremarkable chest exam. No change from 03/31/[address] 04/10/22 11:04 IMPRESSION: There is an expansile lesion involving the left occipital lobe that appears to extend into the splenium of the corpus callosum. This finding is new when compared to prior imaging from 08/18/2012. A dedicated brain MRI without and with contrast is recommended for better anatomic characterization of this finding. Possible diagnostic considerations include a primary intracranial neoplasm, evolving subacute infarct, or intracranial metastatic disease. Abdomen/Pelvis CT 04/10/22 11:05 IMPRESSION: Limited study as detailed above. No definitive acute intra-abdominal/pelvic abnormality. Cholelithiasis without evidence for acute cholecystitis. Fleischner guidelines were followed. Chest X-Ray 04/13/22 08:59 IMPRESSION: No evidence for pneumonia. Brain MRI 04/13/22 20:57 IMPRESSION: Extensive heterogeneous mildly expansile T2/FLAIR hyperintensity noted involving the left occipital and posterior temporal lobe and to lesser extent in the right occipital lobe. Confluent signal abnormality is seen extending into the left more than right parahippocampal gyri and corpus callosum splenium. Cortical laminar necrosis is seen scattered throughout this region. Possible etiologies include immunodeficiency associated [employer] lymphoma or toxoplasmosis. A primary glial neoplasm is difficult to exclude. Posterior reversible encephalopathy syndrome considered but is felt to be less likely T2 hyperintensity and hemorrhage is seen within the right basal ganglia and right inferior frontal lobe white matter could represent a manifestation of toxoplasmosis. Small foci of subacute infarction seen in the bilateral parietal lobes. Small amount of layering hemorrhage seen within the left occipital horn. PICC Line Insertion 04/17/22 16:01 IMPRESSION: Right upper extremity PICC line placement. Head CT 04/24/22 14:11 IMPRESSION: No acute intracranial findings. Stable appearance to the large heterogeneous appearing mass and small areas of hemorrhage compared to March 2022 imaging. Hip/Pelvis X-Ray 04/24/22 14:15 IMPRESSION: No fracture or destructive process or alignment abnormality in the hips. Discharge Plan Discharge Date/Time: 05/04/22 01:15 Patient Disposition: Discharge Diagnosis: Referrals: Physician,None [Primary Care Provider] - 1 Week Discharge Medications: No Action insulin lispro [Humalog U-100 Insulin] 100 unit/mL Solution See Protocol subcut QIDACHS Qty: 1 0RF Protocol: Insulin Correction Scale Less than or equal to 110 ---- Give (units): 0 111 to 150 Give (units): 0 151 to 200 Give (units): 0 201 to 250 Give (units): 3 251 to 300 Give (units): 6 301 to 350 Give (units): 8 Greater than 350 Give (units): 10 Call MD if Blood Glucose > : 350 metformin 850 mg tablet 1 tab PO BID fluticasone propionate [Flovent HFA] 44 mcg/actuation HFA aerosol inhaler 2 puff PO BID albuterol sulfate [Ventolin HFA] 90 mcg/actuation HFA aerosol inhaler 2 puff PO Q4-6H PRN (Reason: Wheezing) insulin glargine [Lantus U-100 Insulin] 100 unit/mL solution 18 unit subcut BEDTIME Biktarvy 50-200-25 mg tablet 1 tab PO DAILY Discharge Date/Time: 05/04/22 03:42
== END 2022-05-04 03:42 | disposition expired | DRG 974 ==
LOC: HO.ED 16:37 → HO.EDOVER 20:27 → HO.S3 04-09 13:33 → HO.ICU 04-13 16:11 → HO.S3 04-14 01:01
PROVIDERS: Anesthesiology; Hospitalist; Internal Medicine; Internal Medicine Nephrology; Nurse Practitioner Acute Care; Physician Assistant Medical; Admitting Provider Internal Medicine; Emergency Provider Emergency Medicine Emergency Medical Services; Visit Provider Student in an Organized Health Care Education/Training Program
DX: B20 Human immunodeficiency virus [HIV] disease (principal); E43 Unspecified severe protein-calorie malnutrition; G93.41 Metabolic encephalopathy; N17.0 Acute kidney failure with tubular necrosis; I61.6 Nontraumatic intracerebral hemorrhage, multiple localized; B37.0 Candidal stomatitis; B58.89 Toxoplasmosis with other organ involvement; Z68.1 Body mass index [BMI] 19.9 or less, adult; E87.1 Hypo-osmolality and hyponatremia; E87.2 Acidosis; R62.7 Adult failure to thrive; E86.0 Dehydration; E86.9 Volume depletion, unspecified; Z20.822 Contact with and (suspected) exposure to COVID-19; F17.210 Nicotine dependence, cigarettes, uncomplicated; R68.0 Hypothermia, not associated with low environmental temperature; I95.9 Hypotension, unspecified; R33.9 Retention of urine, unspecified; N47.2 Paraphimosis; E87.5 Hyperkalemia; L89.102 Pressure ulcer of unspecified part of back, stage 2; Z66 Do not resuscitate; Z71.6 Tobacco abuse counseling; Z86.19 Personal history of other infectious and parasitic diseases; Z91.19 Patient's noncompliance with other medical treatment and regimen; Z88.2 Allergy status to sulfonamides; Z79.4 Long term (current) use of insulin; Z79.51 Long term (current) use of inhaled steroids; Z79.84 Long term (current) use of oral hypoglycemic drugs; Z79.899 Other long term (current) drug therapy
CPT/HCPCS: 36415; 36573; 70450; 70551; 71045; 73521; 74176; 80048; 80053; 80076; 80307; 81001; 82040; 82077; 82088; 82140; 82272; 82533; 82607; 82728; 82746; 82784; 82803; 82947; 83010; 83540; 83605; 83690; 83735; 83935; 84100; 84132; 84133; 84145; 84165; 84300; 84443; 84478; 84484; 85007; 85025; 85027; 85045; 86140; 86160; 86334; 86359; 86360; 87040; 87086; 87502; 87635; 92610; 93005; 96361; 96365; 96366; 99285; C1758; J0610; J1170; J1450; J2060; J2270; J2543; J3475; P9047